=== PATIENT | male | born 1960 | race Two or more races ===

== ENCOUNTER → 2020-06-24 14:47 | Outpatient (BNVA) | payer MEDICARE, MEDICAID, SELFPAY | PROVIDERS: PCP Hospitalist; Referring Provider Hospitalist; Visit Provider Internal Medicine Cardiovascular Disease | DX: I42.8 Other cardiomyopathies (principal); Z79.899 Other long term (current) drug therapy | CPT/HCPCS: 99212 ==

== ENCOUNTER → 2020-07-07 13:47 | Outpatient (REF) | payer MEDICARE, MEDICAID, SELFPAY ==
--- NOTE | 2020-07-07 13:52 | CA_ITS ---
Transthoracic Echocardiogram Patient (Last, First, Middle): Royal Glover, Gender: Male Date of : 1960 Age: 59 Procedure Date: 07/07/2020 Procedure Type: Transthoracic Echocardiogram Location: OP Height: 157.48 cm Weight: 97.04 kg BSA: 1.97 m2 Heart Rate: bpm BP: 128 / 64 mmHg Provider Relations Consultant: Tiff MD: Jaxon Trevino MD Symptoms: I42.8 - Other cardiomyopathies Study Quality: Good ECG Rhythm: Sinus Conclusions: - The left ventricular systolic function is moderately decreased. The visually estimated ejection fraction is between 35-40%. Findings Procedure Information Contrast agent, definity, is being given per protocol without apparent complications. Left Ventricle Normal left ventricular cavity size. The left ventricular systolic function is moderately decreased. The visually estimated ejection fraction is between 35-40%. The calculated ejection fraction is 38% by biplane method. E/E prime ratio is >15, consistent with elevated filling pressures. Evidence suggests grade I (mild) diastolic dysfunction. Prior Study Comparison Changes noted compared to prior study dated: 10/15/2019. Slight increase in LVEF. Measurements 2D Linear Measurements LVIDd: 6.90 3.9-5.3/4.2-5.9 cm LVIDd Index: 3.50 2.4-3.2/2.2-3.1 cm/m2 LVIDs: 6.06 2.0-3.6 cm 2D Systolic Function EF 4C: 50.90 >55% EF 2C: 23.40 >55% EF BiP: 38.10 >55% Mitral Valve MV Pk E: 0.61 MV PK A: 0.81 MV Decel Time: 253.00 E/A: 0.80 E'Lateral: 2.94 E'Medial: 5.00 E/E' Med: 12.20 E/E' Lat: 20.80 Diastolic Function MV Pk E: 0.61 MV Pk A: 0.81 E/A: 0.80 E'Medial: 5.00 E/E' Med: 12.20 E' Laterial: 2.94 E/E' Lat: 20.80 Updated in Other Vendor System with Status of Final Cecil Knapp MD electronically signed on 07/07/2020 4:37:41 PM with status of Final
== END ==
LOC: HO.CARD 13:47
PROVIDERS: Visit Provider Internal Medicine Cardiovascular Disease
DX: I42.8 Other cardiomyopathies (principal)
CPT/HCPCS: 70120; Q9957

== ENCOUNTER → 2020-09-14 13:59 | Outpatient (BNVA) | payer MEDICARE, MEDICAID, SELFPAY | PROVIDERS: PCP Internal Medicine; Visit Provider Internal Medicine Cardiovascular Disease | DX: I42.8 Other cardiomyopathies (principal); E78.5 Hyperlipidemia, unspecified; I10 Essential (primary) hypertension | CPT/HCPCS: 99212 ==

== ENCOUNTER 2020-09-23 09:20 | Outpatient (REF) | payer MEDICARE, MEDICAID, SELFPAY ==
--- NOTE | ~2020-09-23 | US_ITS ---
EXAMINATION: US ABDOMEN LIMITED CLINICAL INFORMATION: Intra-abdominal and pelvic swelling, mass and lump. Question ventral hernia versus lipoma. COMPARISON: None TECHNIQUE: Real-time imaging of the right lower quadrant. FINDINGS: Imaging through the right lower quadrant reveals a loop of peristalsing bowel. No mass, collection or evidence of hernia at this time. US/US abdomen limited IMPRESSION: Unremarkable limited abdominal ultrasound right lower quadrant. No visible mass or hernia.
== END 2020-09-23 09:21 | disposition home or self-care (01) ==
LOC: HO.US 09:20
PROVIDERS: Visit Provider Internal Medicine
DX: R19.00 Intra-abdominal and pelvic swelling, mass and lump, unspecified site (principal)
CPT/HCPCS: 76705

== ENCOUNTER → 2020-12-21 14:53 | Outpatient (BNVA) | payer MEDICARE, MEDICAID, SELFPAY | PROVIDERS: PCP Internal Medicine; Visit Provider Internal Medicine Cardiovascular Disease | DX: I10 Essential (primary) hypertension (principal); I42.8 Other cardiomyopathies; Z79.899 Other long term (current) drug therapy | CPT/HCPCS: 99212 ==

== ENCOUNTER 2021-01-21 13:31 | Outpatient (REF) | payer OTHER, SELFPAY ==
--- NOTE | ~2021-01-21 | US_ITS ---
EXAMINATION: US DIAGNOSTIC ULTRASOUND BREAST, LEFT CLINICAL INFORMATION: Pain and lump retroareolar region left breast. COMPARISON: Mammography of same day.. TECHNIQUE: Ultrasound of the breast is performed with real-time rdz scale imaging and color Doppler. FINDINGS: There is no focal suspicious finding. There is no solid mass, architectural abnormality, duct ectasia, or edema in the soft tissue planes. Normal-appearing breast tissue is evident. Results are discussed with the patient at time of visit. US/US breast LT limited IMPRESSION: Left gynecomastia. ASSESSMENT: BI-RADS 2: Benign RECOMMENDATION: Clinical follow-up .
--- NOTE | ~2021-01-21 | MM_ITS ---
EXAMINATION: MM DIAGNOSTIC DIGITAL BREAST TOMOSYNTHESIS, BILATERAL US TARGETED LEFT BREAST ULTRASOUND CLINICAL INFORMATION: Left breast pain/lump retroareolar location. COMPARISON: Mammography: None. TECHNIQUE: Digital breast tomosynthesis is performed in both the craniocaudal and mediolateral oblique views along with computer-aided detection (CAD). Synthesized 2D images are generated from the tomosynthesis. Targeted left breast ultrasound. FINDINGS: There are scattered areas of fibroglandular density (ACR BI-RADS breast composition Category b). The left breast appears unremarkable without abnormal mass, architectural distortion, or suspicious calcifications. Within the retroareolar region of the left breast, there is a flame-like appearance of tissue with no suspicious abnormal dominant mass or grouping of calcifications. Targeted left breast ultrasound to the retroareolar region demonstrates what appears to be breast tissue without flame-like appearance and with no suspicious region of echotexture. Results are discussed with the patient at time of visit. MM/MM tomosynthesis diagnostic BI IMPRESSION: Left breast gynecomastia. ASSESSMENT: BI-RADS 2: Benign. RECOMMENDATION: Clinical follow-up. This patient's information was entered into a reminder system with a target due date for their next mammogram.
== END 2021-01-21 13:32 | disposition home or self-care (01) ==
LOC: HO.MAMMO 13:31
PROVIDERS: PCP Internal Medicine; Visit Provider Internal Medicine
DX: N64.4 Mastodynia (principal)
CPT/HCPCS: 76642; 77062; 77066

== ENCOUNTER 2021-02-05 11:14 | Outpatient (REF) | payer OTHER, SELFPAY ==
[2021-02-05 14:13] LABS: Hematocrit 44.1 % (42-52); Hemoglobin 14.7 g/dl (14.0-18.0); Mean Corpuscular HGB Conc 33.3 g/dl (31.0-36.0); Mean Corpuscular Hemoglobin 28.8 pg (27.0-33.0); Mean Corpuscular Volume 86.3 fL (80-98); Mean Platelet Volume 12.3 fL (9.4-12.4); Platelet Count 224 X10*3/uL (160-400); Red Blood Count 5.11 X10*6/uL (4.60-5.80); Red Cell Distribution Width 13.1 % (11.0-16.0); White Blood Count 6.8 X10*3/uL (4.8-10.8)
[2021-02-05 14:37] LABS: Alanine Aminotransferase 20 U/L (0-40); Albumin Level 4.2 g/dL (3.5-5.0); Alkaline Phosphatase 70 U/L (39-117); Anion Gap 12 (12-20); Aspartate Amino Transferase 22 U/L (5-37); Bilirubin Total 0.3 mg/dL (0.0-1.0); Blood Urea Nitrogen 14 mg/dL (9-16); Calcium 9.6 mg/dL (8.4-10.2); Carbon Dioxide 24 mmol/L (22-29); Chloride 107 mmol/L (96-108); Estimated Glomerular Filt Rate > 60; Glucose Random 97 mg/dL (60-115); Potassium 4.1 mmol/L (3.3-5.1); Sodium 139 mmol/L (135-145)
== END 2021-02-05 11:15 | disposition home or self-care (01) ==
LOC: HO.LAB 11:14
PROVIDERS: PCP Internal Medicine; Referring Provider Internal Medicine; Visit Provider Nurse Practitioner Family
DX: K21.9 Gastro-esophageal reflux disease without esophagitis (principal); R19.7 Diarrhea, unspecified; Z79.899 Other long term (current) drug therapy; Z87.891 Personal history of nicotine dependence; Z12.11 Encounter for screening for malignant neoplasm of colon
CPT/HCPCS: 36415; 80053; 85027; 99202

== ENCOUNTER 2021-02-23 12:05 | Outpatient (REF) | payer OTHER, SELFPAY | END 2021-02-23 12:06 | disposition home or self-care (01) | LOC: HO.LNP 12:05 | PROVIDERS: Visit Provider Nurse Practitioner Family | DX: K21.9 Gastro-esophageal reflux disease without esophagitis (principal) | CPT/HCPCS: 87338 ==

== ENCOUNTER → 2021-04-23 09:05 | Outpatient (BNVA) | payer OTHER, SELFPAY | PROVIDERS: Visit Provider Nurse Practitioner Family | CPT/HCPCS: Q3014 ==

== ENCOUNTER → 2021-05-17 08:20 | Outpatient (BNVA) | payer OTHER, SELFPAY | PROVIDERS: PCP Internal Medicine; Visit Provider Nurse Practitioner Family | DX: Z13.89 Encounter for screening for other disorder (principal) | CPT/HCPCS: Q3014 ==

== ENCOUNTER 2021-06-09 11:23 | Outpatient (REF) | payer OTHER, SELFPAY ==
[2021-06-09 12:28] LABS: Alanine Aminotransferase 19 U/L (0-40); Albumin Level 4.3 g/dL (3.5-5.0); Alkaline Phosphatase 67 U/L (39-117); Anion Gap 12 (12-20); Aspartate Amino Transferase 21 U/L (5-37); Bilirubin Total 0.6 mg/dL (0.0-1.0); Blood Urea Nitrogen 13 mg/dL (9-16); Calcium 9.6 mg/dL (8.4-10.2); Carbon Dioxide 27 mmol/L (22-29); Chloride 106 mmol/L (96-108); Cholesterol 172 mg/dL; Estimated Glomerular Filt Rate > 60; Glucose Fasting 99 mg/dL (60-99); HDL Cholesterol 38 mg/dL; LDL Cholesterol Calculated 99 mg/dl; Potassium 4.5 mmol/L (3.3-5.1); Sodium 140 mmol/L (135-145); Total Protein 7.2 g/dL (6.5-8.0); Triglycerides 176 mg/dL
[2021-06-09 12:43] LABS: Creatinine Urine 144.96 mg/dL; Microalbum/Creatinine Ratio Ur 47.5 ug/mg cr
[2021-06-13 13:21] LABS: Vitamin D 25-OH, D2 <4 ng/mL; Vitamin D 25-OH, D3 25 ng/mL; Vitamin D 25-OH, Total 25 ng/mL (30-100)
== END 2021-06-09 11:24 | disposition home or self-care (01) ==
LOC: HO.LAB 11:23
PROVIDERS: Nurse Practitioner Family; PCP Internal Medicine; Visit Provider Internal Medicine
DX: E78.5 Hyperlipidemia, unspecified (principal); E55.9 Vitamin D deficiency, unspecified; E11.9 Type 2 diabetes mellitus without complications; K21.9 Gastro-esophageal reflux disease without esophagitis
CPT/HCPCS: 36415; 80053; 80061; 82043; 82306; 87338

== ENCOUNTER → 2021-06-14 14:23 | Outpatient (BNVA) | payer OTHER, SELFPAY | PROVIDERS: PCP Internal Medicine; Referring Provider Internal Medicine; Visit Provider Internal Medicine Cardiovascular Disease | DX: I42.8 Other cardiomyopathies (principal); I10 Essential (primary) hypertension; N64.4 Mastodynia | CPT/HCPCS: 93005; 99212 ==

== ENCOUNTER 2021-08-17 08:36 | Outpatient (REF) | payer OTHER, SELFPAY ==
[2021-08-18 08:32] LABS: H Pylori Breath Test Negative (Negative)
== END 2021-08-17 08:37 | disposition home or self-care (01) ==
LOC: HO.LAB 08:36
PROVIDERS: PCP Internal Medicine; Referring Provider Internal Medicine; Visit Provider Nurse Practitioner Family
DX: K58.1 Irritable bowel syndrome with constipation (principal); K59.04 Chronic idiopathic constipation; K21.9 Gastro-esophageal reflux disease without esophagitis; Z11.0 Encounter for screening for intestinal infectious diseases; Z87.891 Personal history of nicotine dependence
CPT/HCPCS: 36415; 83013; 99212

== ENCOUNTER → 2021-09-14 13:59 | Outpatient (REF) | payer OTHER, SELFPAY ==
--- NOTE | 2021-09-14 14:02 | CA_ITS ---
Transthoracic Echocardiogram Patient (Last, First, Middle): Royal Glover, Gender: Male Date of : 1960 Age: 60 Procedure Date: 09/14/2021 Procedure Type: Transthoracic Echocardiogram Location: OP Height: 157.48 cm Weight: 93.44 kg BSA: 1.94 m2 Heart Rate: bpm BP: 134 / 80 mmHg Automotive Service Manager: Referring MD: Jaxon Trevino MD Symptoms: I42.8 - Other cardiomyopathies Study Quality: Fair ECG Rhythm: Sinus Conclusions: - Severely increased left ventricular cavity size. There is mildly increased left ventricular wall thickness. The left ventricular systolic function is severely decreased. The visually estimated ejection fraction is between 20-25%. - Elevated filling pressures. - Normal right ventricular cavity size and systolic function. - The left atrium is severely dilated. Findings Left Ventricle Severely increased left ventricular cavity size. There is mildly increased left ventricular wall thickness. The left ventricular systolic function is severely decreased. The visually estimated ejection fraction is between 20 25%. Abnormal diastolic function is noted. Spectral Doppler is indicative of a pseudonormal filling pattern. Elevated filling pressures. Right Ventricle Normal right ventricular cavity size and systolic function. Atria The left atrium is severely dilated. Aortic Valve There is a normal trileaflet aortic valve. There is no aortic valve stenosis. There is no aortic valve regurgitation. Mitral Valve There is mild to moderate mitral valve regurgitation. There is no mitral valve stenosis. There is apical tethering of the mitral valve leaflets. Pulmonic Valve Normal pulmonic valve structure and function. There is trace pulmonic valve regurgitation. Tricuspid Valve Normal tricuspid valve structure and function. There is trace tricuspid valve regurgitation. Normal right atrial pressure. There is no evidence of pulmonary hypertension. Great Vessels All visible segments of the aorta are normal in size. The visualized portions of the pulmonary artery and branches are normal. Venous The inferior vena cava is normal in size and collapses greater than 50% with inspiration. Pericardium/Pleural There is no evidence of pericardial effusion. Prior Study Comparison Changes noted compared to prior study dated: 07/07/2020. LV cavity is severely dilated, systolic function is severely reduced. Measurements 2D Linear Measurements IVSd: 1.10 0.6-0.9/0.6-1.0 cm LVIDd: 7.10 3.9-5.3/4.2-5.9 cm LVIDd Index: 3.66 2.4-3.2/2.2-3.1 cm/m2 LVIDs: 5.86 2.0-3.6 cm LVPWd: 1.07 0.7-1.1 cm Ao Root: 3.10 2.1-3.5 cm LA Diam: 5.40 2.7-3.8/3.0-4.0 cm LAIDs Index: 2.78 1.5-2.3 cm/m2 LV Mass: 456.23 67-162/88-224 g LV Mass Index: 235.17 43-95/49-115 g/m2 LVOT Diam: 2.30 3.0+(-)1.3 cm 2D Systolic Function EF 4C: 45.50 >55% EF 2C: 39.90 >55% Mitral Valve MV Pk E: 0.94 MV PK A: 0.59 MV Decel Time: 168.00 E/A: 1.60 E'Lateral: 6.42 E'Medial: 4.90 E/E' Med: 19.20 E/E' Lat: 14.70 PHT: 49.00 MVA PHT: 4.49 Decel Christian: 5.62 Aortic Valve AoV Pk Noel: 1.45 AoV Mn Noel: 0.95 AoV VTI: 0.31 AoV Pk Grad: 8.00 Aov Mn Grad: 4.00 TIAN Cont.VTI: 2.44 LVOT LVOT Pk Noel: 0.88 LVOT Mn Noel: 0.62 LVOT VTI: 0.18 LVOT Pk Grad: 3.00 LVOT Mn Grad: 2.00 LVOT Diam: 2.30 LVOT Area: 4.15 Diastolic Function MV Pk E: 0.94 MV Pk A: 0.59 E/A: 1.60 E'Medial: 4.90 E/E' Med: 19.20 E' Laterial: 6.42 E/E' Lat: 14.70 Right Ventricle TAPSE (mm): 30.00 TVS' Noel: 14.00 Tricuspid Valve TR Pk Noel: 2.67 TR Pk Grad: 29.00 RVSP: 32.00 Great Vessels Aorta Ao Root-2D: 3.10 2.0-3.7 cm Pulmonary Valve PV Pk Noel: 1.06 Peak PV Grad: 4.00 Updated in Other Vendor System with Status of Final Jaxon Trevino MD electronically signed on 09/15/2021 8:08:13 PM with status of Final
== END ==
LOC: HO.CARD 13:59
PROVIDERS: Visit Provider Internal Medicine Cardiovascular Disease
DX: I42.8 Other cardiomyopathies (principal)
CPT/HCPCS: 93306

== ENCOUNTER → 2021-09-22 13:59 | Outpatient (BNVA) | payer OTHER, SELFPAY | PROVIDERS: PCP Internal Medicine; Referring Provider Internal Medicine; Visit Provider Internal Medicine Cardiovascular Disease | DX: I42.8 Other cardiomyopathies (principal); I10 Essential (primary) hypertension; N64.4 Mastodynia | CPT/HCPCS: 99212 ==

== ENCOUNTER → 2021-10-13 13:21 | Outpatient (BNVA) | payer OTHER, SELFPAY | PROVIDERS: PCP Internal Medicine; Referring Provider Internal Medicine; Visit Provider Internal Medicine Cardiovascular Disease | DX: I42.8 Other cardiomyopathies (principal) | CPT/HCPCS: 99212 ==

== ENCOUNTER → 2021-10-19 13:54 | Outpatient (BNVA) | payer OTHER, SELFPAY | PROVIDERS: PCP Internal Medicine; Visit Provider Nurse Practitioner Family | DX: K21.9 Gastro-esophageal reflux disease without esophagitis (principal); K59.04 Chronic idiopathic constipation; K62.5 Hemorrhage of anus and rectum | CPT/HCPCS: 99212 ==

== ENCOUNTER → 2021-12-29 13:55 | Outpatient (REF) | payer OTHER, SELFPAY ==
--- NOTE | 2021-12-29 13:59 | CA_ITS ---
Transthoracic Echocardiogram Patient (Last, First, Middle): Royal Glover, Gender: Male Date of : 1960 Age: 61 Procedure Date: 12/29/2021 Procedure Type: Transthoracic Echocardiogram Location: OP Height: 157.48 cm Weight: 93.9 kg BSA: 1.94 m2 Heart Rate: bpm BP: 110 / 70 mmHg Data Processing Systems Project Planner: BERNADINE Matthew MD: Jaxon Trevino MD Symptoms: I42.8 - Other cardiomyopathies Study Quality: Fair/Contrast Conclusions: - Limited echocardiogram. - The left ventricular systolic function is moderately decreased. The visually estimated ejection fraction is between 30-35%. - Normal right ventricular cavity size and systolic function. Findings Procedure Information Contrast agent, definity, is being given per protocol without apparent complications. Left Ventricle There is mildly increased left ventricular wall thickness. The left ventricular systolic function is moderately decreased. The visually estimated ejection fraction is between 30-35%. Abnormal diastolic function is noted. Spectral Doppler is indicative of an impaired relaxation filling pattern. Elevated filling pressures. Left ventricle is dilated. Right Ventricle Normal right ventricular cavity size and systolic function. Atria The left atrium is moderately dilated. Venous The inferior vena cava is normal in size and collapses greater than 50% with inspiration. Pericardium/Pleural There is no evidence of pericardial effusion. Prior Study Comparison Changes noted compared to prior study dated: 09/14/2021. the left ventricle continues to be dilated but ejection fraction is mildly improved compared to before. Measurements 2D Linear Measurements IVSd: 1.21 0.6-0.9/0.6-1.0 cm LVIDd: 6.90 3.9-5.3/4.2-5.9 cm LVIDd Index: 3.56 2.4-3.2/2.2-3.1 cm/m2 LVIDs: 5.29 2.0-3.6 cm LVPWd: 1.20 0.7-1.1 cm LV Mass: 497.58 67-162/88-224 g LV Mass Index: 256.49 43-95/49-115 g/m2 2D Systolic Function EF 4C: 38.80 >55% EF 2C: 35.50 >55% EF BiP: 34.70 >55% Mitral Valve MV Pk E: 0.65 MV PK A: 0.91 MV Decel Time: 328.00 E/A: 0.70 E'Lateral: 3.81 E'Medial: 4.68 E/E' Med: 13.90 E/E' Lat: 17.10 PHT: 96.00 MVA PHT: 2.29 Decel Cambria: 1.98 Diastolic Function MV Pk E: 0.65 MV Pk A: 0.91 E/A: 0.70 E'Medial: 4.68 E/E' Med: 13.90 E' Laterial: 3.81 E/E' Lat: 17.10 Tricuspid Valve TR Pk Noel: 2.28 TR Pk Grad: 21.00 RA Press: 3.00 RVSP: 24.00 Updated in Other Vendor System with Status of Final Jaxon Trevino MD electronically signed on 12/30/2021 3:07:48 PM with status of Final
== END ==
LOC: HO.CARD 13:55
PROVIDERS: Visit Provider Internal Medicine Cardiovascular Disease
DX: I42.8 Other cardiomyopathies (principal)
CPT/HCPCS: 93308; Q9957

== ENCOUNTER → 2022-01-19 13:20 | Outpatient (BNVA) | payer OTHER, SELFPAY | PROVIDERS: PCP Internal Medicine; Referring Provider Internal Medicine; Visit Provider Internal Medicine Cardiovascular Disease | DX: I42.8 Other cardiomyopathies (principal); I50.22 Chronic systolic (congestive) heart failure | CPT/HCPCS: 93005; 99212 ==

== ENCOUNTER → 2022-04-20 14:10 | Outpatient (BNVA) | payer OTHER, SELFPAY | PROVIDERS: PCP Internal Medicine; Visit Provider Nurse Practitioner Family | DX: K21.9 Gastro-esophageal reflux disease without esophagitis (principal); K64.9 Unspecified hemorrhoids; Z90.49 Acquired absence of other specified parts of digestive tract | CPT/HCPCS: 99212 ==

== ENCOUNTER → 2022-06-14 10:49 | Outpatient (BNVA) | payer OTHER, SELFPAY | PROVIDERS: PCP Internal Medicine; Referring Provider Internal Medicine; Visit Provider Nurse Practitioner Family | DX: K21.9 Gastro-esophageal reflux disease without esophagitis (principal); K59.01 Slow transit constipation | CPT/HCPCS: 99212 ==

== ENCOUNTER → 2022-07-18 15:31 | Outpatient (BNVA) | payer OTHER, SELFPAY | PROVIDERS: PCP Internal Medicine; Referring Provider Internal Medicine; Visit Provider Internal Medicine Cardiovascular Disease | DX: I50.22 Chronic systolic (congestive) heart failure (principal); Z79.899 Other long term (current) drug therapy | CPT/HCPCS: 99212 ==

== ENCOUNTER → 2022-09-26 08:20 | Outpatient (REF) | payer OTHER, SELFPAY ==
[2022-09-26 08:31] LABS: MANUAL DIFF FLAG NO
[2022-09-26 09:29] LABS: Basophils Absolute Auto 0.1 X10*3/uL (0.0-0.2); Basophils Percent Auto 1.3 % (0-2); Eosinophils Absolute Auto 0.1 X10*3/uL (0.0-0.4); Eosinophils Percent Auto 2.4 % (0-4); Hematocrit 44.9 % (42.0-52.0); Imm Gran Abs Auto 0.01 X10*3/uL (0.00-0.03); Imm Gran Pct Auto 0.2 % (0.0-0.4); Lymphocytes Absolute Auto 1.9 X10*3/uL (1.2-4.9); Lymphocytes Percent Auto 35.1 % (20-40); Mean Corpuscular HGB Conc 33.4 g/dl (31.0-36.0); Mean Corpuscular Hemoglobin 28.4 pg (27.0-33.0); Mean Corpuscular Volume 84.9 fL (80.0-98.0); Mean Platelet Volume 12.5 fL (9.4-12.4); Monocytes Absolute Auto 0.5 X10*3/uL (0.1-1.2); Monocytes Percent Auto 9.4 % (2-11); Neutrophils Absolute Auto 2.8 x10*3/uL (2.0-8.3); Neutrophils Percent Auto 51.6 % (45-73); Platelet Count 199 X10*3/uL (160-400); Red Blood Count 5.29 X10*6/uL (4.60-5.80); Red Cell Distribution Width 13.2 % (11.0-16.0); White Blood Count 5.4 X10*3/uL (4.8-10.8)
[2022-09-26 10:05] LABS: Alanine Aminotransferase 20 U/L (0-40); Albumin Level 4.3 g/dL (3.5-5.0); Alkaline Phosphatase 71 U/L (39-117); Anion Gap 13 (12-20); Aspartate Amino Transferase 19 U/L (5-37); Bilirubin Total 0.9 mg/dL (0.0-1.0); Blood Urea Nitrogen 13 mg/dL (9-16); Calcium 9.7 mg/dL (8.4-10.2); Carbon Dioxide 26 mmol/L (22-29); Chloride 107 mmol/L (96-108); Cholesterol 124 mg/dL; Estimated Glomerular Filt Rate > 60; Glucose Fasting 114 mg/dL (60-99); HDL Cholesterol 40 mg/dL; LDL Cholesterol Calculated 56 mg/dl; Potassium 4.1 mmol/L (3.3-5.1); Sodium 142 mmol/L (135-145); Total Protein 6.9 g/dL (6.5-8.0); Triglycerides 140 mg/dL
--- NOTE | 2022-09-26 12:48 | CA_ITS ---
Transthoracic Echocardiogram Patient (Last, First, Middle): Royal Glover, Gender: Male Date of : 1960 Age: 61 Procedure Date: 09/26/2022 Procedure Type: Transthoracic Echocardiogram Location: OP Height: 157.48 cm Weight: 88.91 kg BSA: 1.90 m2 Heart Rate: bpm BP: 128 / 68 mmHg Regional Medical Director: Referring MD: Jaxon Trevino MD Sales Representative Health Insurance: Jaxon Trevino MD Symptoms: I50.22 - Chronic systolic (congestive) heart failure Study Quality: Fair ECG Rhythm: Sinus Conclusions: - Moderately increased left ventricular cavity size. There is mildly increased left ventricular wall thickness. The left ventricular systolic function is severely decreased. The visually estimated ejection fraction is between 20-25%. - Elevated filling pressures. - Mildly increased right ventricular cavity size. There is normal right ventricular systolic function. Findings Procedure Information Contrast agent, definity, is being given per protocol without apparent complications. Left Ventricle Moderately increased left ventricular cavity size. There is mildly increased left ventricular wall thickness. The left ventricular systolic function is severely decreased. The visually estimated ejection fraction is between 20 25%. There is severe global hypokinesis. Abnormal diastolic function is noted. Spectral Doppler is indicative of an impaired relaxation filling pattern. Elevated filling pressures. Right Ventricle Mildly increased right ventricular cavity size. There is normal right ventricular systolic function. Atria The left atrium is severely dilated. Aortic Valve Normal aortic valve structure and function. There is no aortic valve stenosis. There is no aortic valve regurgitation. Mitral Valve The mitral valve appears normal. There is mild mitral valve regurgitation. There is no mitral valve stenosis. Pulmonic Valve The pulmonic valve is likely normal. Tricuspid Valve Normal tricuspid valve structure and function. There is trace tricuspid valve regurgitation. Normal right atrial pressure. There is no evidence of pulmonary hypertension. Great Vessels All visible segments of the aorta are normal in size. The visualized portions of the pulmonary artery and branches are normal. Venous The inferior vena cava is normal in size and collapses greater than 50% with inspiration. Pericardium/Pleural There is no evidence of pericardial effusion. Prior Study Comparison Changes noted compared to prior study. EF is severely reduced. Measurements 2D Linear Measurements IVSd: 1.26 0.6-0.9/0.6-1.0 cm LVIDd: 6.12 3.9-5.3/4.2-5.9 cm LVIDd Index: 3.22 2.4-3.2/2.2-3.1 cm/m2 LVIDs: 5.34 2.0-3.6 cm LVPWd: 1.23 0.7-1.1 cm Ao Root: 2.80 2.1-3.5 cm LA Diam: 4.80 2.7-3.8/3.0-4.0 cm LAIDs Index: 2.53 1.5-2.3 cm/m2 LV Mass: 425.42 67-162/88-224 g LV Mass Index: 223.90 43-95/49-115 g/m2 LVOT Diam: 2.20 3.0+(-)1.3 cm 2D Systolic Function EF 4C: 25.80 >55% EF 2C: 30.80 >55% EF BiP: 27.00 >55% Mitral Valve MV Pk E: 0.59 MV PK A: 0.96 MV Decel Time: 284.00 E/A: 0.60 E'Lateral: 3.26 E'Medial: 3.37 E/E' Med: 17.60 E/E' Lat: 18.20 PHT: 83.00 MVA PHT: 2.65 Decel Irion: 2.09 Aortic Valve AoV Pk Noel: 1.60 AoV Mn Noel: 1.06 AoV VTI: 0.37 AoV Pk Grad: 10.00 Aov Mn Grad: 5.00 TIAN Cont.VTI: 2.32 LVOT LVOT Pk Noel: 1.02 LVOT Mn Noel: 0.68 LVOT VTI: 0.22 LVOT Pk Grad: 4.00 LVOT Mn Grad: 2.00 LVOT Diam: 2.20 LVOT Area: 3.80 Diastolic Function MV Pk E: 0.59 MV Pk A: 0.96 E/A: 0.60 E'Medial: 3.37 E/E' Med: 17.60 E' Laterial: 3.26 E/E' Lat: 18.20 Right Ventricle TAPSE (mm): 29.00 TVS' Noel: 13.00 Tricuspid Valve TR Pk Noel: 2.42 TR Pk Grad: 23.00 RA Press: 3.00 RVSP: 26.00 Great Vessels Aorta Ao Root-2D: 2.80 2.0-3.7 cm Ao Asc: 3.20 2.1-3.4 cm Pulmonary Valve PV Pk Noel: 1.20 Peak PV Grad: 6.00 Updated in Other Vendor System with Status of Final Jaxon Trevino MD electronically signed on 09/29/2022 5:58:39 PM with status of Final
[2022-09-28 11:39] LABS: NT-proBNP 289 pg/mL
== END ==
LOC: HO.CARD 08:20
PROVIDERS: Absent Provider Internal Medicine; PCP Internal Medicine; Visit Provider Internal Medicine Cardiovascular Disease
DX: I50.22 Chronic systolic (congestive) heart failure (principal); K59.01 Slow transit constipation; E78.5 Hyperlipidemia, unspecified
CPT/HCPCS: 36415; 80053; 80061; 83880; 85025; 93306; Q9957

== ENCOUNTER → 2022-11-08 11:00 | Outpatient (BNVA) | payer OTHER, SELFPAY | PROVIDERS: PCP Internal Medicine; Visit Provider Nurse Practitioner Family | DX: K21.9 Gastro-esophageal reflux disease without esophagitis (principal); K59.01 Slow transit constipation; K58.2 Mixed irritable bowel syndrome | CPT/HCPCS: 99212 ==

== ENCOUNTER → 2022-11-23 14:48 | Outpatient (BNVA) | payer OTHER, SELFPAY | PROVIDERS: PCP Internal Medicine; Visit Provider Internal Medicine Cardiovascular Disease | DX: I50.22 Chronic systolic (congestive) heart failure (principal); I42.6 Alcoholic cardiomyopathy; F10.20 Alcohol dependence, uncomplicated | CPT/HCPCS: 93005; 99212 ==

== ENCOUNTER 2023-04-20 08:53 | Outpatient (AMB) | payer OTHER, SELFPAY ==
--- NOTE | 2023-04-20 09:02 | MHC.OFFVIS ---
Intake Vital Signs 04/20/23 09:03 Height 5 ft 2 in Weight 201 lb 0.985 oz BMI 36.8 BP 100/62 Blood Pressure Location Lt brachial Position Sitting Pulse 50 Pulse Source Pulse Oximeter Intake Visit Reasons: 3 mth f/up/ PT missed last appt Intake Note: 3 month f/up Solo Truck Driver Required: Yes Solo Truck Driver Name: ayla gamboa [id number] Allergies No Known Allergies [No Known Allergies*] Allergy (Verified 04/20/23 09:08) Medication List - Last Reconciled 04/20/23 by REJI Adamson acetaminophen (Tylenol) 650 mg (2 x 325 mg) PO Q6H PRN aspirin 81 mg PO DAILY atorvastatin 80 mg PO DAILY blood sugar diagnostic (FreeStyle Lite Strips) Use 1 test strip once a day blood-glucose meter (FreeStyle Lite Meter kit) As directed cyclobenzaprine 10 mg PO BEDTIME empagliflozin (Jardiance) 10 mg PO DAILY eplerenone 25 mg PO DAILY fluticasone propionate 50 mcg/actuation (Flonase Allergy Relief) 1 spray intranasal DAILY 10 days furosemide 40 mg PO DAILY hydrocortisone 2.5% (Proctosol HC) 1 appl MT BID-QID PRN ibuprofen 800 mg PO Q8H PRN 30 days lancets (FreeStyle Lancets) Use 1 lancet once a day loratadine 10 mg PO DAILY 10 days methylcellulose (laxative) (Citrucel) 500 mg PO DAILY metoprolol succinate ER 50 mg PO DAILY olanzapine 10 mg PO BEDTIME omeprazole 40 mg PO DAILY sacubitril-valsartan 49-51 mg (Entresto) 1 tab PO BID sennosides (Natural Senna Laxative) 17.2 mg (2 x 8.6 mg) PO BEDTIME sertraline 50 mg PO DAILY trazodone 200 mg PO BEDTIME PRN HPI 3 mth f/up/ PT missed last appt HPI Details Royal is a 62-year-old male with past medical history of hypertension, hyperlipidemia, diabetes, obesity, nonischemic cardiomyopathy, alcohol use who presents for follow-up. Today he reports he has been doing well with no concerning symptoms. He denies having shortness of breath with exertion. No chest discomfort, palpitations, dizziness, presyncope, syncope, PND, orthopnea or edema. He tells me he walks frequently. He reports compliance with his medications though he believes he is taking Entresto only once a day. 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 pylori) GERD (gastroesophageal reflux disease) Breast pain Dyslipidemia Essential hypertension Obese Abdominal mass Insomnia Surgical History H/O abdominal surgery History of colonoscopy Family History Father No problems noted. Mother No problems noted. Social History Housing: Apartment Alcohol intake: current Alcohol intake frequency: a few times a month Alcohol type: beer Patient Tobacco Use Status: Former Tobacco user Tobacco use type: Cigarette e-Cigarette/Vaping Use: Never Used Second Hand Smoke Exposure: No service: No Current occupational status: retired Cognitive needs: No Hearing needs: No Vision needs: No Review of Systems Const All systems reviewed & are unremarkable except as noted in HPI and below ENT Denies dizziness Card Denies chest pain, Denies chest pain at rest, Denies chest pain with activity, Denies rapid heart rate, Denies pedal edema, Denies edema, Denies leg edema, Denies lightheadedness, Denies palpitations, Denies dyspnea, Denies dyspnea on exertion and Denies orthopnea Resp Denies cough, Denies dyspnea and Denies dyspnea on exertion GI Denies hematochezia and Denies change in stool character Musc Denies abnormal gait, Reports limited range of motion, Reports muscle cramps, Denies muscle weakness, Denies numbness, Denies radiating pain into limb, Denies stiffness and Denies tingling Neuro Denies abnormal gait, Denies dizziness, Denies numbness and Denies tingling Endo Denies palpitations Physical Exam Vital Signs: Last Vital Signs Pulse 50 04/20/23 09:03 BP 100/62 04/20/23 09:03 BMI result Body Mass Index 36.8 Const General: cooperative, healthy appearing, comfortable and no acute distress Orientation/consciousness: patient oriented x3 Neck Neck: Yes normal visual inspection and Yes no JVD Resp Effort & Inspection: normal respiratory effort Auscultation: clear to auscultation bilaterally, no crackles, no rales, no rhonchi and no wheezes Cardio Jugular venous distension: no JVD Rate: regular rate Rhythm: regular rhythm Heart sounds: S1 normal heart sound present, S2 normal heart sound present, no murmurs and no rubs Neuro General: patient oriented x3 Extrem General: Yes normal to inspection Psych Appearance: grossly normal Mental Status: mental status grossly normal Speech and movement: Normal speech and movement present Assessment & Plan Assessment & Plan (1) NICM (nonischemic cardiomyopathy): Comment: Clinically compensated Code(s): I42.8 - Other cardiomyopathies Plan: History of nonischemic cardiomyopathy, 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 Last echocardiogram done 09/26/2022 showed EF 20-25%. Echo prior to that 09/14/2021 also showed EF 20-25%. He has been on guideline directed medical therapy. On last visit he reported that he had stopped alcohol use. Today he reports he is feeling very well with no concerning symptoms. NYHA class 1. He believes he has been taking Entresto only once daily, instructed to take b.i.d. refills sent to pharmacy. He admits to drinking beers on occasion. He denies daily drinking. His no clinical signs of decompensated heart failure on examination. Will continue on Entresto and metoprolol for neurohormonal modulation. Unable to further titrate at this time. Continue daily Lasix. He is due for updated lab work, orders are in the system, instructed to obtain. Will check limited echo prior to his next visit. If EF remains less than 35% ICD can be considered. Signs and symptoms of heart failure reviewed. Cardiology follow-up 3 months, sooner if needed. (2) Chronic systolic heart failure: Code(s): I50.22 - Chronic systolic (congestive) heart failure Plan: Stable. (3) Essential hypertension: Comment: Well controlled Code(s): I10 - Essential (primary) hypertension Plan: Well controlled at present. Blood pressure 100/62 (4) Alcohol use: Code(s): Z78.9 - Other specified health status Plan: Continues to admit to periodic alcohol use Orders: Orders CA echo limited 06/28/23 I42.8 - Other cardiomyopathies Medications: Refilled sacubitril-valsartan 49-51 mg (Entresto) 1 tab PO BID 180 tabs 3RF I42.8 - Other cardiomyopathies furosemide 40 mg PO DAILY 90 tabs 3RF metoprolol succinate ER 50 mg PO DAILY 90 tabs 3RF Quality Reporting (2019) Adult ([facility] 138/10/05/[birth year]) Smoking risk assessment performed?: Yes Patient Tobacco Use Status: Former Tobacco user Coding Level of Care Code Est Pt Level 3 (74410) Diagnoses NICM (nonischemic cardiomyopathy) I42.8 Chronic systolic heart failure I50.22 Essential hypertension I10 Alcohol use Z78.9 Time Spent (min) 22 Comment chart review, document, interview, assess
[2023-04-20 09:03] VITALS: BP 100/62; PULSE 50; BMI 36.8
== END 2023-04-20 09:30 | disposition home or self-care (01) ==
PROVIDERS: PCP Internal Medicine; Referring Provider Internal Medicine; Visit Provider Nurse Practitioner Family
DX: I42.8 Other cardiomyopathies (principal); I50.22 Chronic systolic (congestive) heart failure; I10 Essential (primary) hypertension; Z78.9 Other specified health status
CPT/HCPCS: 99213

== ENCOUNTER → 2023-04-20 08:53 | Outpatient (BNVA) | payer OTHER, SELFPAY | PROVIDERS: PCP Internal Medicine; Referring Provider Internal Medicine; Visit Provider Nurse Practitioner Family | DX: I42.8 Other cardiomyopathies (principal); I11.0 Hypertensive heart disease with heart failure; I50.22 Chronic systolic (congestive) heart failure; Z78.9 Other specified health status | CPT/HCPCS: 99212 ==

== ENCOUNTER 2023-05-09 07:42 | Outpatient (AMB) | payer OTHER, SELFPAY ==
[2023-05-09 07:48] VITALS: BP 110/70; BMI 36.9
--- NOTE | 2023-05-09 07:48 | MHC.PC.OV ---
Vital Signs 05/09/23 07:48 Height 5 ft 2 in Weight 202 lb BMI 36.9 BP 110/70 Blood Pressure Location Lt brachial Position Sitting Intake Visit Reasons: bp,back pain Intake Note: Patient here for a follow up bp, back pain, c/o right leg pain with numbness, dizziness, headaches Hansard Reporter Required: No Accompanied by: Self / Same As Patient Allergies No Known Allergies [No Known Allergies*] Allergy (Verified 05/09/23 08:04) Medication List - Last Reconciled 05/09/23 by Gina Le MD acetaminophen (Tylenol) 650 mg (2 x 325 mg) PO Q6H PRN aspirin 81 mg PO DAILY atorvastatin 80 mg PO DAILY blood sugar diagnostic (FreeStyle Lite Strips) Use 1 test strip once a day blood-glucose meter (FreeStyle Lite Meter kit) As directed cyclobenzaprine 10 mg PO BEDTIME empagliflozin (Jardiance) 10 mg PO DAILY eplerenone 25 mg PO DAILY fluticasone propionate 50 mcg/actuation (Flonase Allergy Relief) 1 spray intranasal DAILY 10 days furosemide 40 mg PO DAILY hydrocortisone 2.5% (Proctosol HC) 1 appl [place] BID-QID PRN ibuprofen 800 mg PO Q8H PRN 30 days lancets (FreeStyle Lancets) Use 1 lancet once a day loratadine 10 mg PO DAILY 10 days methylcellulose (laxative) (Citrucel) 500 mg PO DAILY metoprolol succinate ER 50 mg PO DAILY olanzapine 10 mg PO BEDTIME omeprazole 40 mg PO DAILY sacubitril-valsartan 49-51 mg (Entresto) 1 tab PO BID sennosides (Natural Senna Laxative) 17.2 mg (2 x 8.6 mg) PO BEDTIME sertraline 50 mg PO DAILY trazodone 200 mg PO BEDTIME PRN Tobacco use date assessed: 09/19/22 Fall risk assessment: No Falls in past year Last assessed Fall Risk: 05/09/23 Dental Screening Dental Screen Date: 05/09/23 Did you have a dental visit in the last 12 months?: Yes Did you have a dental problem in the last 6 months where you did not have access to dental care?: No Was dental information given to patient?: Patient has dentist HPI HPI Comments History of Present Illness Details This is a 62-year-old male with diabetes mellitus type 2, chronic systolic congestive heart failure, hyperlipidemia and mild recurrent major depression that comes today for follow-up on his conditions. A1c within goal. Last ejection fraction from echocardiogram done September 2022 shows to be 20-25% and this will be repeated soon. Denies any chest pain, shortness of breath or leg swelling. Has not gain 5 lb in a week. Compliant with medications. LDL within goal. Depression stable with SSRIs and this is follow by Psychiatry. Has occasional dizziness when picking something from the floor most likely vasovgoal reaction. 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 pylori) GERD (gastroesophageal reflux disease) Breast pain Dyslipidemia Essential hypertension Obese Abdominal mass Insomnia Surgical History H/O abdominal surgery History of colonoscopy Family History (Updated 05/09/23 @ 08:09 by Gina Le MD) Father No problems noted. Mother Kidney failure Social History Housing: Apartment Alcohol intake: current Alcohol intake frequency: a few times a month Alcohol type: beer Patient Tobacco Use Status: Former Tobacco user Tobacco use type: Cigarette e-Cigarette/Vaping Use: Never Used Second Hand Smoke Exposure: No service: No Current occupational status: retired Cognitive needs: No Hearing needs: No Vision needs: No Questionnaire Thrive Questionnaire Date Thrive assessed: 09/19/22 MIGUELINA-7 AMB Questionnaire MIGUELINA-7 Date MIGUELINA - 7 assessed: 09/19/22 Source: Developed by Drs. Elias Schillnig, Barbie Teague, Flavio Calvin and colleagues, with an educational elroy from [employer]. Review of Systems Const All systems reviewed & are unremarkable except as noted in HPI and below Eyes Reports no additional complaints, Denies change in vision and Denies other visual disturbances Card Denies chest pain at rest, Denies chest pain with activity, Denies edema, Denies irregular heart rhythm, Denies claudication, Denies dyspnea, Denies dyspnea on exertion, Denies orthopnea, Denies paroxysmal nocturnal dyspnea and Denies slow heart rate Resp Denies cough, Denies dyspnea and Denies dyspnea on exertion GI Denies abdominal pain, Denies change in bowel habits, Denies excessive flatus, Denies nausea and Denies vomiting Denies urinary hesitancy, Denies urinary incontinence and Denies urinary urgency Musc Denies abnormal gait, Denies atrophy, Denies deformity and Denies limited range of motion Skin/Breast Denies bleeding lesions, Denies changing lesions and Denies rash Neuro Denies abnormal gait, Denies behavioral changes and Denies lack of coordination Psych Denies behavioral changes Physical exam (Primary Care) Vital Signs: Last Vital Signs BP 110/70 05/09/23 07:48 BMI result Body Mass Index 36.9 Tobacco/Smoking Status: Tobacco use Status Tobacco use date assessed 09/19/22 05/09/23 07:51 Patient Tobacco Use Status Former Tobacco user 05/09/23 07:51 Tobacco use type Cigarette 05/09/23 07:51 e-Cigarette/Vaping Use Never Used 05/09/23 07:51 Thrive Assessment: Date of Thrive Assessment Date Thrive assessed 09/19/22 05/09/23 07:51 Eyes General: appearance normal, both eyes and all related structures Eyelids: Yes eyelids normal Conjunctivae: conjunctivae normal Neck Neck: Yes normal visual inspection and Yes supple Resp Effort & Inspection: normal respiratory effort Auscultation: clear to auscultation bilaterally Cardio Jugular venous distension: no JVD Rate: regular rate Rhythm: regular rhythm Heart sounds: S1 normal heart sound present and S2 normal heart sound present Extrem General: Yes full ROM Results AMB Hemoglobin A1c AMB Hemoglobin A1c 5.5 % Last Edit by FE Coello on 05/09/23 07:57 Results Reviewed Results Reviewed: Laboratory Last Values Hgb A1c (Clinic) 5.5 % (4.0-6.0) 05/09/23 07:52 Assessment and Plan Assessment & Plan (1) Diabetes mellitus: Code(s): E11.9 - Type 2 diabetes mellitus without complications Plan: Continue Jardiance. A1c goal is equal or less than 7%. (2) Hyperlipidemia LDL goal <70: Code(s): E78.5 - Hyperlipidemia, unspecified Plan: Continue statins. LDL goal is less than 70. (3) Chronic systolic heart failure: Code(s): I50.22 - Chronic systolic (congestive) heart failure Plan: Continue Entresto and diuretics. Repeat echocardiogram. Follow-up with Cardiology. The goal is to not gain 5 lb in a week. (4) Mild recurrent major depression: Code(s): F33.0 - Major depressive disorder, recurrent, mild Plan: Continue SSRIs Orders: Orders Lipid Panel Today E78.5 - Hyperlipidemia, unspecified Microalbumin, Random (w Creat) Today E11.9 - Type 2 diabetes mellitus without complications Vitamin D 25-OH Total Today E55.9 - Vitamin D deficiency, unspecified AMB Hemoglobin A1c Today E11.9 - Type 2 diabetes mellitus without complications Comprehensive [place]. Panel Fast Today E11.9 - Type 2 diabetes mellitus without complications NT-proBNP Today I42.8 - Other cardiomyopathies Medications: New blood sugar diagnostic (OneTouch Ultra Test strips) Use 1 test strip once a day 100 ea 2RF E11.9 - Type 2 diabetes mellitus without complications lancets (OneTouch UltraSoft 2 Lancet) Use 1 lancet once a day 100 ea 2RF E11.9 - Type 2 diabetes mellitus without complications blood-glucose meter (OneTouch Ultra2 Meter) As directed 1 ea 0RF E11.9 - Type 2 diabetes mellitus without complications Discontinued blood sugar diagnostic (FreeStyle Lite Strips) Discontinued Reason: Patient Completed Course Use 1 test strip once a day 100 ea 3RF E11.9 - Type 2 diabetes mellitus without complications blood-glucose meter (FreeStyle Lite Meter kit) Discontinued Reason: Insurance Denied As directed 1 ea 0RF E11.9 - Type 2 diabetes mellitus without complications Coding Level of Care Code Est Pt Level 4 (42548) Diagnoses Diabetes mellitus E11.9 Hyperlipidemia LDL goal <70 E78.5 Chronic systolic heart failure I50.22 Mild recurrent major depression F33.0 Time Spent (min) 23
== END 2023-05-09 08:14 | disposition home or self-care (01) ==
PROVIDERS: PCP Internal Medicine; Visit Provider Internal Medicine
DX: E11.9 Type 2 diabetes mellitus without complications (principal); E78.5 Hyperlipidemia, unspecified; I50.22 Chronic systolic (congestive) heart failure; F33.0 Major depressive disorder, recurrent, mild
CPT/HCPCS: 83036; 99214

== ENCOUNTER 2023-05-10 07:25 | Outpatient (REF) | payer OTHER, SELFPAY ==
[2023-05-10 08:20] LABS: Alanine Aminotransferase 18 U/L (0-40); Albumin Level 4.3 g/dL (3.5-5.0); Alkaline Phosphatase 68 U/L (39-117); Anion Gap 11 (12-20); Aspartate Amino Transferase 16 U/L (5-37); Bilirubin Total 0.5 mg/dL (0.0-1.0); Blood Urea Nitrogen 18 mg/dL (9-16); Calcium 9.5 mg/dL (8.4-10.2); Carbon Dioxide 25 mmol/L (22-29); Chloride 108 mmol/L (96-108); Cholesterol 148 mg/dL (<200); Estimated Glomerular Filt Rate > 60; Glucose Fasting 108 mg/dL (60-99); HDL Cholesterol 42 mg/dL (>40); LDL Cholesterol Calculated 80 mg/dL (<100); Potassium 4.1 mmol/L (3.3-5.1); Sodium 140 mmol/L (135-145); Total Protein 7.3 g/dL (6.5-8.0); Triglycerides 131 mg/dL (<150)
[2023-05-10 08:33] LABS: Vitamin D 25-OH Total 42.9 ng/mL (>30)
[2023-05-10 10:51] LABS: Creatinine Urine 118.79 mg/dL; Microalbum/Creatinine Ratio Ur 115.3 ug/mg cr (<30)
[2023-05-15 21:58] LABS: NT-proBNP 292 pg/mL (<125)
== END 2023-05-10 07:26 | disposition home or self-care (01) ==
LOC: HO.LAB 07:25
PROVIDERS: Absent Provider Nurse Practitioner Family; PCP Internal Medicine; Visit Provider Internal Medicine
DX: E11.9 Type 2 diabetes mellitus without complications (principal); E78.5 Hyperlipidemia, unspecified; I50.22 Chronic systolic (congestive) heart failure; E55.9 Vitamin D deficiency, unspecified; I42.8 Other cardiomyopathies
CPT/HCPCS: 36415; 80053; 80061; 82043; 82306; 82570; 83880

== ENCOUNTER → 2023-06-29 08:35 | Outpatient (REF) | payer OTHER, SELFPAY ==
--- NOTE | 2023-06-29 08:39 | CA_ITS ---
Transthoracic Echocardiogram Patient (Last, First, Middle): Royal Glover, Gender: Male Date of : 1960 Age: 62 Procedure Date: 06/29/2023 Procedure Type: Transthoracic Echocardiogram Location: OP Height: 157.48 cm Weight: 90.72 kg BSA: 1.91 m2 Heart Rate: 56 bpm BP: 120 / 80 mmHg Manager Provider Relations: KIMBERLY/ARAVIND Referring MD: Keira Sanderson REHABILITATION NURSEJustinoC Symptoms: I42.8 - Other cardiomyopathies Study Quality: Adequate w contrast ECG Rhythm: Bradycardia Conclusions: - The left ventricular systolic function is severely decreased. The visually estimated ejection fraction is between 20-25%. - There is severe global hypokinesis. - The basal inferolateral segment is akinetic. Findings Procedure Information Contrast agent, definity, is being given per protocol without apparent complications. The quality of the study was technically difficult. The study quality is limited by patients body habitus. Left Ventricle Severely increased left ventricular cavity size. The left ventricular systolic function is severely decreased. The visually estimated ejection fraction is between 20-25%. There is severe global hypokinesis. There is mild septal asymmetric hypertrophy. LV peak GLS -12.1%. Wall Motion Rest Echo Findings The basal inferolateral segment is akinetic. Prior Study Comparison No significant change compared to prior study dated: 09/26/2022. Wall motion abnormality possibly present on review of prior images, but not well visualized. Much more obvious in current study. Measurements 2D Linear Measurements IVSd: 1.28 0.6-0.9/0.6-1.0 cm LVIDd: 7.46 3.9-5.3/4.2-5.9 cm LVIDd Index: 3.91 2.4-3.2/2.2-3.1 cm/m2 LVIDs: 6.70 2.0-3.6 cm LVOT Diam: 2.20 3.0+(-)1.3 cm 2D Systolic Function EF 4C: 34.90 >55% EF 2C: 30.20 >55% EF BiP: 31.60 >55% LVOT LVOT Pk Noel: 0.60 LVOT Mn Noel: 0.41 LVOT VTI: 0.13 LVOT Pk Grad: 1.00 LVOT Mn Grad: 1.00 LVOT Diam: 2.20 LVOT Area: 3.80 Tricuspid Valve RA Press: 3.00 Updated in Other Vendor System with Status of Final Cecil Knapp MD electronically signed on 07/01/2023 11:18:50 AM with status of Final
== END ==
LOC: HO.CARD 08:35
PROVIDERS: PCP Internal Medicine; Visit Provider Nurse Practitioner Family
DX: I42.8 Other cardiomyopathies (principal)
CPT/HCPCS: 93308; 93356; Q9957

== ENCOUNTER → 2023-06-29 08:39 | Outpatient (BNV) | payer OTHER, SELFPAY | PROVIDERS: PCP Internal Medicine; Visit Provider Internal Medicine | DX: I42.8 Other cardiomyopathies (principal) | CPT/HCPCS: 93308 ==

== ENCOUNTER 2023-07-18 11:05 | Outpatient (AMB) | payer OTHER, SELFPAY ==
[2023-07-18 11:09] VITALS: BP 114/72; PULSE 58; BMI 37.7
--- NOTE | 2023-07-18 11:09 | MHC.OFFVIS ---
Intake Vital Signs 07/18/23 11:09 Height 5 ft 2 in Weight 205 lb 14.588 oz BMI 37.7 BP 114/72 Blood Pressure Location Rt brachial Position Sitting Pulse 58 Intake Visit Reasons: 3M Echo ICD discussion Maxillofacial Prosthetics Dentist Required: Yes Maxillofacial Prosthetics Dentist Language: Tumbler Dyeing Machine Operator Name: ayla temple [id number] Allergies No Known Allergies [No Known Allergies*] Allergy (Verified 07/18/23 11:12) Medication List - Last Reconciled 07/18/23 by REJI Adamson acetaminophen (Tylenol) 650 mg (2 x 325 mg) PO Q6H PRN aspirin 81 mg PO DAILY atorvastatin 80 mg PO DAILY blood sugar diagnostic ([employer] Ultra Test strips) Use 1 test strip once a day blood-glucose meter ([employer] Ultra2 Meter) As directed cyclobenzaprine 10 mg PO BEDTIME empagliflozin (Jardiance) 10 mg PO DAILY eplerenone 25 mg PO DAILY fluticasone propionate 50 mcg/actuation (Flonase Allergy Relief) 1 spray intranasal DAILY 10 days furosemide 40 mg PO DAILY hydrocortisone 2.5% (Proctosol HC) 1 appl [place] BID-QID PRN ibuprofen 800 mg PO Q8H PRN 30 days lancets (FreeStyle Lancets) Use 1 lancet once a day lancets (OneTouch UltraSoft 2 Lancet) Use 1 lancet once a day loratadine 10 mg PO DAILY 10 days methylcellulose (laxative) (Citrucel) 500 mg PO DAILY metoprolol succinate ER 50 mg PO DAILY olanzapine 10 mg PO BEDTIME omeprazole 40 mg PO DAILY sacubitril-valsartan 49-51 mg (Entresto) 1 tab PO BID sennosides (Natural Senna Laxative) 17.2 mg (2 x 8.6 mg) PO BEDTIME sertraline 50 mg PO DAILY HPI 3M Echo ICD discussion HPI Details Royal is a 62-year-old male with past medical history of hypertension, hyperlipidemia, diabetes, obesity, nonischemic cardiomyopathy, alcohol use who presents for follow-up after recent echo. Today he reports he is feeling well with no concerning symptoms. He has no chest discomfort at rest or with exertion. No shortness of breath reported. No PND, orthopnea or edema. No lightheadedness, presyncope, syncope, falls. He walks frequently without symptoms. He reports compliance with his meds but he is unclear of what he is taking. He tells me he only has a beer occasionally. He does not drink alcohol daily. certified sweat band separator used. 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 pylori) GERD (gastroesophageal reflux disease) Breast pain Dyslipidemia Essential hypertension Obese Abdominal mass Insomnia Surgical History H/O abdominal surgery History of colonoscopy Family History Father No problems noted. Mother Kidney failure Social History Housing: Apartment Alcohol intake: current Alcohol intake frequency: a few times a month Alcohol type: beer Patient Tobacco Use Status: Former Tobacco user Tobacco use type: Cigarette e-Cigarette/Vaping Use: Never Used Second Hand Smoke Exposure: No service: No Current occupational status: retired Cognitive needs: No Hearing needs: No Vision needs: No Review of Systems Const All systems reviewed & are unremarkable except as noted in HPI and below ENT Denies dizziness Card Denies chest pain, Denies chest pain at rest, Denies chest pain with activity, Denies rapid heart rate, Denies pedal edema, Denies edema, Denies leg edema, Denies lightheadedness, Denies palpitations, Denies dyspnea, Denies dyspnea on exertion and Denies orthopnea Resp Denies cough, Denies dyspnea and Denies dyspnea on exertion GI Denies hematochezia and Denies change in stool character Musc Denies abnormal gait, Denies limited range of motion, Denies muscle cramps, Denies muscle weakness, Denies numbness, Denies radiating pain into limb, Denies stiffness and Denies tingling Neuro Denies abnormal gait, Denies dizziness, Denies numbness and Denies tingling Endo Denies palpitations Physical Exam Vital Signs: Last Vital Signs Pulse 58 07/18/23 11:09 BP 114/72 07/18/23 11:09 BMI result Body Mass Index 37.7 Const General: cooperative, healthy appearing, comfortable and no acute distress Orientation/consciousness: patient oriented x3 Neck Neck: Yes normal visual inspection and Yes no JVD Resp Effort & Inspection: normal respiratory effort Auscultation: clear to auscultation bilaterally, no crackles, no rales, no rhonchi and no wheezes Cardio Jugular venous distension: no JVD Rate: regular rate Rhythm: regular rhythm Heart sounds: S1 normal heart sound present, S2 normal heart sound present, no murmurs and no rubs Neuro General: patient oriented x3 Extrem General: Yes normal to inspection Psych Appearance: grossly normal Mental Status: mental status grossly normal Speech and movement: Normal speech and movement present Office Procedures EKG Details: Today, read by me, Sinus jessica, left axis, nonspecific intraventricular conduction delay ( looks like incomplete LBBB), T wave abnormality inferolateral leads - same as prior, rate 56. 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 Cardiac catheterization back in 2019 showed no significant coronary artery disease. EF has remained down since that time. Echocardiogram done 09/26/2022 showed EF 20-25%. Echo prior to that 09/14/2021 also showed EF 20-25%. He has been on guideline directed medical therapy according to our records. An updated echocardiogram was done on 06/29/2023 showing EF 20-25%, basal inferior akinetic. Today he reports he is feeling very well with no concerning symptoms. NYHA class 1. He admits to drink an occasional beer, not daily. He says he is taking his meds as directed however he is not sure of what they are. Call placed to his pharmacy and they state he has not picked up Entresto since September 2022 when he got a 90 day supply. At this time will have him go home and our registered medical assistant will call him to obtain current list of all meds he is actually taking. Will make sure he has refills for all those medications and that he is taking what he should be. He does not appear in heart failure on examination. I had spent time going over benefits and need for ICD. All questions answered. He is agreeable to proceed. He is aware the ICD does not strength in his heart but will protect him in the event of arrhythmia. Prior to referral need to make sure that he has been on the appropriate meds. Will make addendum to this note. Signs and symptoms of heart failure reviewed. Cardiology follow-up 4 months, sooner if needed. (2) Chronic systolic heart failure: Code(s): I50.22 - Chronic systolic (congestive) heart failure Plan: Stable. (3) Essential hypertension: Comment: Well controlled Code(s): I10 - Essential (primary) hypertension Plan: Well controlled at present. Blood pressure 100/62 (4) Alcohol use: Code(s): Z78.9 - Other specified health status Plan: Continues to admit to periodic alcohol use Quality Reporting (2019) Adult ([facility] ) Smoking risk assessment performed?: Yes Patient Tobacco Use Status: Former Tobacco user Coding Level of Care Code Est Pt Level 4 (98820) Diagnoses NICM (nonischemic cardiomyopathy) I42.8 Chronic systolic heart failure I50.22 Essential hypertension I10 Alcohol use Z78.9 CPT Codes EKG - CPT: 04960-[id number], Complete ([id number]) Time Spent (min) 35
== END 2023-07-18 12:32 | disposition home or self-care (01) ==
PROVIDERS: PCP Internal Medicine; Visit Provider Nurse Practitioner Family
DX: I42.8 Other cardiomyopathies (principal); I50.22 Chronic systolic (congestive) heart failure; I10 Essential (primary) hypertension; Z78.9 Other specified health status
CPT/HCPCS: 93010; 99214

== ENCOUNTER → 2023-07-18 11:05 | Outpatient (BNVA) | payer OTHER, SELFPAY | PROVIDERS: PCP Internal Medicine; Visit Provider Nurse Practitioner Family | DX: I42.8 Other cardiomyopathies (principal); I11.0 Hypertensive heart disease with heart failure; I50.22 Chronic systolic (congestive) heart failure; Z78.9 Other specified health status | CPT/HCPCS: 93005; 99212 ==

== ENCOUNTER 2023-09-11 13:54 | Outpatient (AMB) | payer OTHER, SELFPAY ==
--- NOTE | 2023-09-11 13:58 | A.OFFPC_ITS ---
Vital Signs 09/11/23 14:02 Height 5 ft 2 in Weight 206 lb BMI 37.7 BP 126/80 Blood Pressure Location Lt brachial Position Sitting Intake Visit Reasons: 4M follow up Intake Note: Patient here for a follow up Casework Specialist Required: No Accompanied by: Self / Same As Patient Allergies No Known Allergies [No Known Allergies*] Allergy (Verified 09/11/23 14:21) Medication List - Last Reconciled 09/11/23 by Gina Le MD acetaminophen (Tylenol) 650 mg (2 x 325 mg) PO Q6H PRN aspirin 81 mg PO DAILY atorvastatin 80 mg PO DAILY blood sugar diagnostic ([facility] Ultra Test strips) Use 1 test strip once a day blood-glucose meter ([facility] Ultra2 Meter) As directed cyclobenzaprine 10 mg PO BEDTIME empagliflozin (Jardiance) 10 mg PO DAILY eplerenone 25 mg PO DAILY fluticasone propionate 50 mcg/actuation (Flonase Allergy Relief) 1 spray intranasal DAILY 10 days furosemide 40 mg PO DAILY hydrocortisone 2.5% (Proctosol HC) 1 appl MO BID-QID PRN ibuprofen 800 mg PO Q8H PRN 30 days lancets (FreeStyle Lancets) Use 1 lancet once a day lancets (OneTouch UltraSoft 2 Lancet) Use 1 lancet once a day loratadine 10 mg PO DAILY 10 days methylcellulose (laxative) (Citrucel) 500 mg PO DAILY metoprolol succinate ER 50 mg PO DAILY olanzapine 10 mg PO BEDTIME omeprazole 40 mg PO DAILY sacubitril-valsartan 49-51 mg (Entresto) 1 tab PO BID sennosides (Natural Senna Laxative) 17.2 mg (2 x 8.6 mg) PO BEDTIME sertraline 50 mg PO DAILY Tobacco use date assessed: 09/11/23 Fall risk assessment: No Falls in past year Last assessed Fall Risk: 09/11/23 Dental Screening Dental Screen Date: 09/11/23 Did you have a dental visit in the last 12 months?: No Did you have a dental problem in the last 6 months where you did not have access to dental care?: No Was dental information given to patient?: Patient declined HPI HPI Comments History of Present Illness Details This is a 62-year-old male with diabetes mellitus type 2, chronic systolic congestive heart failure, constipation and mild recurrent major depression that comes today for follow-up on his conditions. A1c within goal. Last echocardiogram showing low ejection fraction and this is follow by cardiology which wants to place a pacemaker but patient declined. He is aware that he can if he does not place the pacemaker as instructed by Cardiology. Has not gain 5 lb in a week. Constipation stable with senna as needed. Depression stable with SSRIs. 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 pylori) GERD (gastroesophageal reflux disease) Breast pain Dyslipidemia Essential hypertension Obese Abdominal mass Insomnia Surgical History H/O abdominal surgery History of colonoscopy Family History Father No problems noted. Mother Kidney failure Social History Housing: Apartment Alcohol intake: current Alcohol intake frequency: a few times a month Alcohol type: beer Patient Tobacco Use Status: Former Tobacco user Tobacco use type: Cigarette e-Cigarette/Vaping Use: Never Used Second Hand Smoke Exposure: No service: No Current occupational status: retired Cognitive needs: No Hearing needs: No Vision needs: No Questionnaire PHQ-9 Over the last 2 weeks, how often have you been bothered by any of the following problems? 1. Little interest or pleasure in doing things: nearly every day 2. Feeling down, depressed, or hopeless: nearly every day 3. Trouble falling or staying asleep, or sleeping too much: several days 4. Feeling tired or having little energy: several days 5. Poor appetite or overeating: more than half the days 6. Feeling bad about yourself - or that you are a failure or have let yourself or your family down: several days 7. Trouble concentrating on things, such as reading the newspaper or watching television: not at all 8. Moving or speaking so slowly that other people could have noticed. Or the opposite - being so fidgety or restless that you have been moving around a lot more than usual: not at all 9. Thoughts that you would be better off or of hurting yourself in some way: not at all Total score: 11 Depression Screening Interpretation: Positive Depression Screening Follow-up: Existing condition, In treatment and Community Mental Health Worker F/U Depression Screening Done: Yes 16433 - PHQ-9 Billing: Yes Source: Developed by Drs. Elias Schilling, Barbie Teague, Flavio Calvin and colleagues, with an educational elroy from [employer]. Thrive Questionnaire Date Thrive assessed: 09/11/23 I am a: Patient What is your living situation today?: I have a steady place to live Within the past 12 months, did the food you bought not last and you didn't have the money to get more?: Never true Within the past 12 months, did you worry whether your food would run out before you got money to buy more?: Never true Do you have trouble paying for medicines?: No Do you have trouble getting transportation to medical appointments?: No Do you have trouble paying your heating and electricity bill?: No Do you have trouble taking care of your child, family member or friend?: No Do you have trouble with day-to-day activities such as bathing, preparing meals, shopping, managing finances, etc.?: No Are you currently unemployed and looking for a job?: No Are you interested in more education?: No Please select the resources that you would like help with: None Currently or been in a relationship where the following occur: no concerns reported THRIVE Score: 0 AUDIT C Alcohol Use Questionnaire (AUDIT-C) 1. How often do you have a drink containing alcohol?: 2-4 times a month 2. How many drinks containing alcohol do you have on a typical day when you are drinking?: 3 or 4 3. How often do you have six or more drinks on one occasion?: Never Total Score: 3 Score Reviewed/Action Taken: Yes MIGUELINA-7 AMB Questionnaire MIGUELINA-7 Date MIGUELINA - 7 assessed: 09/11/23 Feeling nervous, anxious, or on edge: 2 = More than half the days Not being able to stop or control worryin = Not at all Worrying too much about different things: 1 = Several days Trouble relaxin = Not at all Being so restless that it is hard to sit still: 0 = Not at all Becoming easily annoyed or irritable: 1 = Several days Feeling afraid as if something awful might happen: 1 = Several days Total MIGUELINA-7 score (0-4 normal; 5-9 mild; 10-14 moderate; 15-21 severe): 5 Source: Developed by Drs. Elias Schilling, Barbie Teague, Flavio Calvin and colleagues, with an educational elroy from [employer]. MIGUELINA-7 Assessment Billing MIGUELINA-7 Assessment Tool: MIGUELINA-7 Assessment 85680 Review of Systems Const All systems reviewed & are unremarkable except as noted in HPI and below Eyes Reports no additional complaints, Denies change in vision and Denies other visual disturbances Card Denies chest pain at rest, Denies chest pain with activity, Denies edema, Denies irregular heart rhythm, Denies claudication, Denies dyspnea, Denies dyspnea on exertion, Denies orthopnea, Denies paroxysmal nocturnal dyspnea and Denies slow heart rate Resp Denies cough, Denies dyspnea and Denies dyspnea on exertion GI Denies abdominal pain, Denies change in bowel habits, Denies excessive flatus, Denies nausea and Denies vomiting Denies urinary hesitancy, Denies urinary incontinence and Denies urinary urgency Musc Denies abnormal gait, Denies atrophy, Denies deformity and Denies limited range of motion Skin/Breast Denies bleeding lesions, Denies changing lesions and Denies rash Neuro Denies abnormal gait, Denies behavioral changes and Denies lack of coordination Psych Denies behavioral changes Physical exam (Primary Care) Vital Signs: Last Vital Signs BP 126/80 09/11/23 14:02 BMI result Body Mass Index 37.7 Tobacco/Smoking Status: Tobacco use Status Tobacco use date assessed 09/11/23 09/11/23 14:11 Patient Tobacco Use Status Former Tobacco user 09/11/23 14:00 Tobacco use type Cigarette 09/11/23 14:00 e-Cigarette/Vaping Use Never Used 09/11/23 14:00 PHQ-9: PHQ-9 Score PHQ-9: Total score 11 09/11/23 14:24 Depression Screening Interpretation: Positive Depression Screening Follow-up: Existing condition, In treatment and Community Mental Health Worker F/U Thrive Assessment: Date of Thrive Assessment Date Thrive assessed 09/11/23 09/11/23 14:08 Currently or been in a relationship where the following occur: no concerns reported Eyes General: appearance normal, both eyes and all related structures Eyelids: Yes eyelids normal Conjunctivae: conjunctivae normal Neck Neck: Yes normal visual inspection and Yes supple Resp Effort & Inspection: normal respiratory effort Auscultation: clear to auscultation bilaterally Cardio Jugular venous distension: no JVD Rate: regular rate Rhythm: regular rhythm Heart sounds: S1 normal heart sound present and S2 normal heart sound present Extrem General: Yes full ROM Office Procedures Flu Questionnaire Does the patient have a severe egg allergy?: No Results AMB Hemoglobin A1c AMB Hemoglobin A1c 5.7 % Last Edit by FE Coello on 09/11/23 14:1 3 Immunizations flu vacc [id number] 6mos up(PF) 60 mcg(15 mcgx4)/0.5 mL IM syringe Performing Provider: Gina Le MD [facility] Documented (not given) by: FE Coello on 09/11/23 14:11 Reason Not Given: Patient Refused Results Reviewed Results Reviewed: Laboratory Last Values Hgb A1c (Clinic) 5.7 % (4.0-6.0) 09/11/23 13:58 Assessment and Plan Assessment & Plan (1) Diabetes mellitus: Code(s): E11.9 - Type 2 diabetes mellitus without complications Plan: Continue Jardiance. A1c goal is equal or less than 7%. (2) Chronic systolic heart failure: Code(s): I50.22 - Chronic systolic (congestive) heart failure Plan: Continue Entresto. The goal is to not gain 5 lb in a week. Follow-up with Cardiology. (3) Constipation by delayed colonic transit: Code(s): K59.01 - Slow transit constipation Plan: Continue senna as needed. (4) Mild recurrent major depression: Code(s): F33.0 - Major depressive disorder, recurrent, mild Plan: Continue SSRIs. Orders: Orders Microalbumin, Random (w Creat) 4 Months E11.9 - Type 2 diabetes mellitus without complications Vitamin D 25-OH Total 4 Months E55.9 - Vitamin D deficiency, unspecified Influenza [id number] Immunization Today Z23 - Encounter for immunization Lipid Panel 4 Months E78.5 - Hyperlipidemia, unspecified Comprehensive [place]. Panel Fast 4 Months E11.9 - Type 2 diabetes mellitus without complications AMB Hemoglobin A1c Today E11.9 - Type 2 diabetes mellitus without complications Medications: Refilled metoprolol succinate ER 50 mg PO DAILY 90 tabs 3RF sacubitril-valsartan 49-51 mg (Entresto) 1 tab PO BID 180 tabs 3RF I42.8 - Other cardiomyopathies ibuprofen 800 mg PO Q8H PRN 90 tabs 2RF pain 30 days M54.6 - Pain in thoracic spine Coding Level of Care Code Est Pt Level 4 (81554) Diagnoses Diabetes mellitus E11.9 Chronic systolic heart failure I50.22 Constipation by delayed colonic transit K59.01 Mild recurrent major depression F33.0 Additional Codes MIGUELINA-7 Assessment Billing - MIGUELINA-7 Assessment Tool: MIGUELINA-7 Assessment 64455 ([id number]) Time Spent (min) 24
[2023-09-11 14:02] VITALS: BP 126/80; BMI 37.7
== END 2023-09-11 14:32 | disposition home or self-care (01) ==
PROVIDERS: PCP Internal Medicine; Visit Provider Internal Medicine
DX: E11.9 Type 2 diabetes mellitus without complications (principal); I50.22 Chronic systolic (congestive) heart failure; K59.01 Slow transit constipation; F33.0 Major depressive disorder, recurrent, mild
CPT/HCPCS: 83036; 99214

== ENCOUNTER 2023-11-24 09:03 | Outpatient (AMB) | payer OTHER, SELFPAY ==
--- NOTE | 2023-11-24 09:23 | MHC.OFFVIS ---
Intake Vital Signs 11/24/23 09:24 Height 5 ft 2 in Weight 212 lb 8.41 oz BMI 38.9 BP 100/62 Blood Pressure Location Lt brachial Position Sitting Pulse 61 Pulse Source Pulse Oximeter Intake Visit Reasons: Follow up per DC [employer]ppings Required: Yes [employer] Language: Electrical Contacts Adjuster Name: ayla luque [id number] Allergies No Known Allergies [No Known Allergies*] Allergy (Verified 11/24/23 09:27) Medication List - Last Reconciled 11/24/23 by REJI Adamson acetaminophen (Tylenol) 650 mg (2 x 325 mg) PO Q6H PRN aspirin 81 mg PO DAILY atorvastatin 80 mg PO DAILY blood sugar diagnostic ([facility] Ultra Test strips) Use 1 test strip once a day blood-glucose meter ([employer] Ultra2 Meter) As directed cyclobenzaprine 10 mg PO BEDTIME empagliflozin (Jardiance) 10 mg PO DAILY fluticasone propionate 50 mcg/actuation (Flonase Allergy Relief) 1 spray intranasal DAILY 10 days furosemide 40 mg PO DAILY hydrocortisone 2.5% (Proctosol HC) 1 appl ME BID-QID PRN ibuprofen 800 mg PO Q8H PRN 30 days lancets (FreeStyle Lancets) Use 1 lancet once a day lancets (OneTouch UltraSoft 2 Lancet) Use 1 lancet once a day loratadine 10 mg PO DAILY 10 days methylcellulose (laxative) (Citrucel) 500 mg PO DAILY metoprolol succinate ER 50 mg PO DAILY olanzapine 10 mg PO BEDTIME omeprazole 40 mg PO DAILY sacubitril-valsartan 49-51 mg (Entresto) 1 tab PO BID sennosides (Natural Senna Laxative) 17.2 mg (2 x 8.6 mg) PO BEDTIME sertraline 50 mg PO DAILY HPI Follow up per [place] HPI Details Royal is a 62-year-old male with past medical history of hypertension, hyperlipidemia, diabetes, obesity, nonischemic cardiomyopathy, alcohol use who presents for follow-up. Today he reports he is feeling well with no concerning symptoms. He has no chest discomfort at rest or with exertion. No shortness of breath reported. No PND, orthopnea or edema. No lightheadedness, presyncope, syncope, falls. He walks frequently without symptoms. He reports compliance with his meds but again he is unclear of what he is taking. He tells me he only has a beer occasionally. He does not drink alcohol daily. 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 pylori) GERD (gastroesophageal reflux disease) Breast pain Dyslipidemia Essential hypertension Obese Abdominal mass Insomnia Surgical History H/O abdominal surgery History of colonoscopy Family History (Reviewed 11/24/23 @ 11: by Keira Sanderson NP-C) Father No problems noted. Mother Kidney failure Social History Housing: Apartment Alcohol intake: current Alcohol intake frequency: a few times a month Alcohol type: beer Patient Tobacco Use Status: Former Tobacco user Tobacco use type: Cigarette e-Cigarette/Vaping Use: Never Used Second Hand Smoke Exposure: No service: No Current occupational status: retired Cognitive needs: No Hearing needs: No Vision needs: No Review of Systems Const All systems reviewed & are unremarkable except as noted in HPI and below ENT Denies dizziness Card Denies chest pain, Denies chest pain at rest, Denies chest pain with activity, Denies rapid heart rate, Denies pedal edema, Denies edema, Denies leg edema, Denies lightheadedness, Denies palpitations, Denies dyspnea, Denies dyspnea on exertion and Denies orthopnea Resp Denies cough, Denies dyspnea and Denies dyspnea on exertion GI Denies hematochezia and Denies change in stool character Musc Denies abnormal gait, Denies limited range of motion, Denies muscle cramps, Denies muscle weakness, Denies numbness, Denies radiating pain into limb, Denies stiffness and Denies tingling Neuro Denies abnormal gait, Denies dizziness, Denies numbness and Denies tingling Endo Denies palpitations Physical Exam Vital Signs: Last Vital Signs Pulse 61 11/24/23 09:24 BP 100/62 11/24/23 09:24 BMI result Body Mass Index 38.9 Const General: cooperative, healthy appearing, comfortable and no acute distress Orientation/consciousness: patient oriented x3 Neck Neck: Yes normal visual inspection Resp Effort & Inspection: normal respiratory effort Auscultation: clear to auscultation bilaterally, no crackles, no rales, no rhonchi and no wheezes Cardio Jugular venous distension: no JVD Rate: regular rate Rhythm: regular rhythm Heart sounds: S1 normal heart sound present, S2 normal heart sound present, no murmurs and no rubs Neuro General: patient oriented x3 Extrem General: Yes normal to inspection, No no pedal edema and No calf tenderness Psych Appearance: grossly normal Mental Status: mental status grossly normal Speech and movement: Normal speech and movement present Assessment & Plan Assessment & Plan (1) NICM (nonischemic cardiomyopathy): Comment: Clinically compensated Code(s): I42.8 - Other cardiomyopathies Plan: History of nonischemic cardiomyopathy, 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 Cardiac catheterization back in 2019 showed no significant coronary artery disease. EF has remained down since that time. Echocardiogram done 09/26/2022 showed EF 20-25%. Echo prior to that 09/14/2021 also showed EF 20-25%. He has been on guideline directed medical therapy according to our records. An updated echocardiogram was done on 06/29/2023 showing EF 20-25%, basal inferior akinetic. On last visit he was unsure of what meds he was taking. Call placed to his pharmacy and told that he had not picked up Entresto since 09/2022. Our Croatian-speaking MA communicated with him regarding recommended medication list and refills were sent on his cardiac meds. Today he is still unsure what his medications are. Call placed to his pharmacy again and we have confirmed he has picked up furosemide, metoprolol, Entresto, Jardiance recently. He tells me he takes all his meds daily. At this time will recheck an echocardiogram to reassess EF. If EF remains less than 35% then ICD would be indicated. He has been on appropriate med management and seemingly compliant. NYHA class 1. He admits to drink an occasional beer, not daily. He does not appear in heart failure on examination. I had spent time going over benefits and need for ICD. All questions answered. He is agreeable to proceed. He is aware the ICD does not strength in his heart but will protect him in the event of arrhythmia. Prior to referral will recheck limited echocardiogram to reassess EF. Cardiology follow-up 3 months, sooner if needed (2) Chronic systolic heart failure: Code(s): I50.22 - Chronic systolic (congestive) heart failure Plan: Stable. (3) Essential hypertension: Comment: Well controlled Code(s): I10 - Essential (primary) hypertension Plan: Well controlled at present. Blood pressure 100/62 (4) Alcohol use: Code(s): Z78.9 - Other specified health status Plan: Continues to admit to periodic alcohol use Plan Time spent on chart review, documentation, interview and assessment Orders: Orders CA echo limited Today I42.8 - Other cardiomyopathies Quality Reporting (2019) Adult ([facility] ) Smoking risk assessment performed?: Yes Patient Tobacco Use Status: Former Tobacco user Coding Level of Care Code Est Pt Level 4 (98839) Diagnoses NICM (nonischemic cardiomyopathy) I42.8 Chronic systolic heart failure I50.22 Essential hypertension I10 Alcohol use Z78.9 Time Spent (min) 30
[2023-11-24 09:24] VITALS: BP 100/62; PULSE 61; BMI 38.9
== END 2023-11-24 10:06 | disposition home or self-care (01) ==
PROVIDERS: PCP Internal Medicine; Visit Provider Nurse Practitioner Family
DX: I42.8 Other cardiomyopathies (principal); I50.22 Chronic systolic (congestive) heart failure; I10 Essential (primary) hypertension; Z78.9 Other specified health status
CPT/HCPCS: 99214

== ENCOUNTER → 2023-11-24 09:03 | Outpatient (BNVA) | payer OTHER, SELFPAY | PROVIDERS: PCP Internal Medicine; Visit Provider Nurse Practitioner Family | DX: I42.8 Other cardiomyopathies (principal); I11.0 Hypertensive heart disease with heart failure; I50.22 Chronic systolic (congestive) heart failure; Z78.9 Other specified health status | CPT/HCPCS: 99212 ==

== ENCOUNTER → 2023-12-20 14:34 | Outpatient (REF) | payer OTHER, SELFPAY ==
--- NOTE | 2023-12-20 14:42 | CA_ITS ---
Transthoracic Echocardiogram Patient (Last, First, Middle): Royal Glover, Gender: Male Date of : 1960 Age: 63 Procedure Date: 12/20/2023 Procedure Type: Transthoracic Echocardiogram Location: OP Height: 157.48 cm Weight: 92.99 kg BSA: 1.93 m2 Heart Rate: bpm BP: 102 / 60 mmHg Food Mixer Repairer: TO Referring MD: Keira Sanderson ECONOMIC MANAGERPietro Symptoms: I42.8 - Other cardiomyopathies Study Quality: Fair, contrast Conclusions: - Severely dilated left ventricle with moderate to severe LV systolic dysfunction with LVEF of 30-35% with regional wall motion abnormality consistent with ischemic cardiomyopathy Findings Procedure Information Contrast agent, definity, is being given per protocol without apparent complications. Left Ventricle Severely increased left ventricular cavity size. There is normal left ventricular wall thickness. The left ventricular systolic function is moderate to severely decreased. The visually estimated ejection fraction is between 30-35%. There is evidence of regional wall motion abnormalities. Spectral Doppler is indicative of a pseudonormal filling pattern. E/E prime ratio is between 8 and 15 consistent with indeterminate filling pressures. Wall Motion Rest Echo Findings The apical inferior segment is hypokinetic. The inferoseptal wall, inferolateral wall, the basal inferior, and mid inferior segments are akinetic. Prior Study Comparison Changes noted compared to prior study dated: 06/29/2023. LV systolic function is improved but still moderately to severely reduced Measurements 2D Linear Measurements IVSd: 1.02 0.6-0.9/0.6-1.0 cm LVIDd: 7.40 3.9-5.3/4.2-5.9 cm LVIDd Index: 3.83 2.4-3.2/2.2-3.1 cm/m2 LVIDs: 6.24 2.0-3.6 cm LVPWd: 0.94 0.7-1.1 cm LV Mass: 431.94 67-162/88-224 g LV Mass Index: 223.80 43-95/49-115 g/m2 LVOT Diam: 2.30 3.0+(-)1.3 cm 2D Systolic Function EF 4C: 31.00 >55% EF 2C: 32.90 >55% EF BiP: 31.00 >55% Mitral Valve MV Pk E: 1.02 MV PK A: 0.51 MV Decel Time: 231.00 E/A: 2.00 E'Lateral: 8.70 E'Medial: 5.66 E/E' Med: 18.00 E/E' Lat: 11.70 PHT: 68.00 MVA PHT: 3.24 Decel King: 4.41 LVOT LVOT Pk Noel: 1.02 LVOT Mn Noel: 0.66 LVOT VTI: 0.20 LVOT Pk Grad: 4.00 LVOT Mn Grad: 2.00 LVOT Diam: 2.30 LVOT Area: 4.15 Diastolic Function MV Pk E: 1.02 MV Pk A: 0.51 E/A: 2.00 E'Medial: 5.66 E/E' Med: 18.00 E' Laterial: 8.70 E/E' Lat: 11.70 Tricuspid Valve RA Press: 3.00 Updated in Other Vendor System with Status of Final Marcos Osuna MD electronically signed on 12/20/2023 4:29:24 PM with status of Final
== END ==
LOC: HO.CARD 14:34
PROVIDERS: PCP Internal Medicine; Visit Provider Nurse Practitioner Family
DX: I42.8 Other cardiomyopathies (principal)
CPT/HCPCS: 93308; Q9957

== ENCOUNTER → 2023-12-20 14:42 | Outpatient (BNV) | payer OTHER, SELFPAY | PROVIDERS: PCP Internal Medicine; Visit Provider Internal Medicine Cardiovascular Disease | DX: I25.5 Ischemic cardiomyopathy (principal) | CPT/HCPCS: 93308; 93321; 93325 ==

== ENCOUNTER 2024-02-12 12:32 | Outpatient (AMB) | payer OTHER, SELFPAY ==
[2024-02-12 12:47] VITALS: BP 94/60; PULSE 60; BMI 39.2
--- NOTE | 2024-02-12 12:47 | MHC.OFFVIS ---
Vital Signs 02/12/24 12:47 Height 5 ft 2 in Weight 214 lb 4.629 oz BMI 39.2 BP 94/60 Blood Pressure Location Rt brachial Position Sitting Pulse 60 Intake Visit Reasons: 3mth f/up Intake Note: 3 month f/u Top Spotter Required: Yes Top Spotter Name: hortencia [id number]/[email or web address] Accompanied by: Self / Same As Patient Allergies No Known Allergies [No Known Allergies*] Allergy (Verified 11/24/23 09:27) Medication List - Last Reconciled 02/12/24 by REJI Adamson acetaminophen (Tylenol) 650 mg (2 x 325 mg) PO Q6H PRN aspirin 81 mg PO DAILY atorvastatin 80 mg PO DAILY blood sugar diagnostic (2theloouch Ultra Test strips) Use 1 test strip once a day blood-glucose meter (2theloouch Ultra2 Meter) As directed cyclobenzaprine 10 mg PO BEDTIME empagliflozin (Jardiance) 10 mg PO DAILY fluticasone propionate 50 mcg/actuation (Flonase Allergy Relief) 1 spray intranasal DAILY 10 days furosemide 40 mg PO DAILY hydrocortisone 2.5% (Proctosol HC) 1 appl [place] BID-QID PRN ibuprofen 800 mg PO Q8H PRN 30 days lancets (FreeStyle Lancets) Use 1 lancet once a day lancets (OneTouch UltraSoft 2 Lancet) Use 1 lancet once a day loratadine 10 mg PO DAILY 10 days methylcellulose (laxative) (Citrucel) 500 mg PO DAILY metoprolol succinate ER 50 mg PO DAILY olanzapine 10 mg PO BEDTIME omeprazole 40 mg PO DAILY sacubitril-valsartan 49-51 mg (Entresto) 1 tab PO BID sennosides (Natural Senna Laxative) 17.2 mg (2 x 8.6 mg) PO BEDTIME sertraline 50 mg PO DAILY HPI HPI 3mth f/up: Details: Royal is a 63-year-old male with past medical history of hypertension, hyperlipidemia, diabetes, obesity, nonischemic cardiomyopathy, alcohol use who presents for follow-up after recent echocardiogram. Today he reports he is feeling well with no concerning symptoms. He has no chest discomfort at rest or with exertion. No shortness of breath reported. No PND, orthopnea or edema. No lightheadedness, presyncope, syncope, falls. He walks frequently without symptoms. He reports compliance with his meds. He tells me he only has a beer occasionally. He does not drink alcohol daily. 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 pylori) GERD (gastroesophageal reflux disease) Breast pain Dyslipidemia Essential hypertension Obese Abdominal mass Insomnia Surgical History H/O abdominal surgery History of colonoscopy Family History Father No problems noted. Mother Kidney failure Social History Housing: Apartment Alcohol intake: current Alcohol intake frequency: a few times a month Alcohol type: beer Patient Tobacco Use Status: Former Tobacco user Tobacco use type: Cigarette e-Cigarette/Vaping Use: Never Used Second Hand Smoke Exposure: No service: No Current occupational status: retired Cognitive needs: No Hearing needs: No Vision needs: No Review of Systems Const All systems reviewed & are unremarkable except as noted in HPI and below Denies chills, Denies fatigue, Denies fever(s), Denies frequent falls, Denies weakness, Denies weight gain and Denies weight loss ENT Denies dizziness Card Denies chest pain, Denies leg edema, Denies lightheadedness, Denies palpitations, Denies dyspnea on exertion and Denies orthopnea Resp Denies cough and Denies dyspnea on exertion GI Denies hematochezia and Denies change in stool character Musc Denies abnormal gait, Denies muscle weakness, Denies numbness and Denies radiating pain into limb Neuro Denies abnormal gait, Denies dizziness, Denies frequent falls, Denies numbness and Denies weakness Endo Denies fatigue and Denies palpitations Physical Exam Vital Signs: Last Vital Signs Pulse 60 02/12/24 12:47 BP 94/60 02/12/24 12:47 BMI result Body Mass Index 39.2 Const General: cooperative, healthy appearing, comfortable and no acute distress Orientation/consciousness: patient oriented x3 Neck Neck: Yes normal visual inspection Resp Effort & Inspection: normal respiratory effort Auscultation: clear to auscultation bilaterally, no crackles, no rales, no rhonchi and no wheezes Cardio Jugular venous distension: no JVD Rate: regular rate Rhythm: regular rhythm Heart sounds: S1 normal heart sound present, S2 normal heart sound present, no murmurs and no rubs Neuro General: patient oriented x3 Extrem General: Yes normal to inspection, No no pedal edema and No calf tenderness Psych Appearance: grossly normal Mental Status: mental status grossly normal Speech and movement: Normal speech and movement present Quality Reporting (2019) Adult ([facility] 138/10/05/68) Smoking risk assessment performed?: Yes Patient Tobacco Use Status: Former Tobacco user Assessment & Plan Assessment & Plan (1) NICM (nonischemic cardiomyopathy): Comment: Clinically compensated Code(s): I42.8 - Other cardiomyopathies Category: Medical Plan: History of nonischemic cardiomyopathy, 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 Cardiac catheterization back in 2019 showed no significant coronary artery disease. EF has remained down since that time. Echocardiogram done 09/26/2022 showed EF 20-25%. Echo prior to that 09/14/2021 also showed EF 20-25%. He has been on guideline directed medical therapy according to our records. An updated echocardiogram was done on 06/29/2023 showing EF 20-25%, basal inferior akinetic. He has had issues with med noncompliance. After prior visit, Our Setsw[place]-speaking MA communicated with him regarding recommended medication list and refills were sent on his cardiac meds. On last visit he was still unsure of his meds. Call placed to his pharmacy and we have confirmed he has picked up furosemide, metoprolol, Entresto, Jardiance recently. Today he tells me he is taking all his meds as directed. He says he has gotten refills when the bottles have run out. Echocardiogram done 12/20/2023 showed EF 30-35%, wall motion abnormality consistent with ischemic cardiomyopathy. Based on prior cardiac catheterization he has no significant CAD. He has no reports of anginal sounding symptoms. On exam he has no clinical signs of decompensated heart failure. NYHA class 1. His meds are optimized. He has already been referred to electrophysiology for a defibrillator. This was previously discussed with him and he is agreeable to proceed. He has not received a call from that office yet. Will check with our inspector soldering to ensure that referral has gone through. He admits to drink an occasional beer, not daily. -recommended full cessation. Continue all meds without change. Need for strict compliance reviewed with him. Cardiology follow-up 3-4 months, sooner if needed. (2) Chronic systolic heart failure: Code(s): I50.22 - Chronic systolic (congestive) heart failure Category: Medical Plan: Stable. (3) Essential hypertension: Comment: Well controlled Code(s): I10 - Essential (primary) hypertension Category: Medical Plan: Well controlled at present. Blood pressure 94/60 (4) Alcohol use: Code(s): Z78.9 - Other specified health status Category: Social Hx Plan: Continues to admit to periodic alcohol use Plan Time spent on chart review, documentation, interview and assessment Coding Level of Care Code Est Pt Level 4 (90419) Diagnoses NICM (nonischemic cardiomyopathy) I42.8 Chronic systolic heart failure I50.22 Essential hypertension I10 Alcohol use Z78.9 Time Spent (min) 28
== END 2024-02-12 13:26 | disposition home or self-care (01) ==
PROVIDERS: PCP Internal Medicine; Visit Provider Nurse Practitioner Family
DX: I42.8 Other cardiomyopathies (principal); I50.22 Chronic systolic (congestive) heart failure; I10 Essential (primary) hypertension; Z78.9 Other specified health status
CPT/HCPCS: 99214

== ENCOUNTER → 2024-02-12 12:32 | Outpatient (BNVA) | payer OTHER, SELFPAY | PROVIDERS: PCP Internal Medicine; Visit Provider Nurse Practitioner Family | DX: I42.8 Other cardiomyopathies (principal); I11.0 Hypertensive heart disease with heart failure; I50.22 Chronic systolic (congestive) heart failure; Z78.9 Other specified health status | CPT/HCPCS: 99212 ==

== ENCOUNTER 2024-03-08 07:28 | Emergency (ER) | payer OTHER, SELFPAY ==
[2024-03-08] VITALS (8 sets, daily range): BP systolic 92–119; BP diastolic 64–78; PULSE 57–65; RESP 16–24; TEMP 36.5–36.6; O2SAT 92–93; BMI 38.8
--- NOTE | ~2024-03-08 | XR_ITS ---
EXAMINATION: XR CHEST CLINICAL INFORMATION: Cough. COMPARISON: 05/19/2019 TECHNIQUE: 2 views of the chest were obtained. FINDINGS: The lungs are moderately expanded. There is pulmonary vascular redistribution. Diffuse prominence of the interstitium. The heart is enlarged but stable. Focal nodular density projecting over the right suprahilar region measuring 3 cm. This may represent overlapping soft tissues. No significant pleural effusion. Right hemidiaphragm remains elevated. XR/XR chest 2V IMPRESSION: Pulmonary vascular congestion/interstitial edema. 3 cm nodular density projecting over the right suprahilar region possibly representing overlapping soft tissues. Short interval follow-up imaging is advised.
--- NOTE | ~2024-03-08 | CT_ITS ---
EXAMINATION: CT ABDOMEN AND PELVIS WITH CONTRAST CLINICAL INFORMATION: Left lower quadrant pain. Nausea and vomiting. COMPARISON: None available. TECHNIQUE: Multidetector volumetric images were obtained from the superior aspect of the liver through the pubic symphysis following administration 85 mL of Omnipaque 350 intravenous contrast. Sagittal and coronal reformatted images were obtained on the technologist's workstation. Oral contrast: No This CT examination was performed using dose optimization techniques as appropriate, variously including the following: *Automated exposure control *Adjustment of mA and/or kV according to patient size (this includes techniques or standardized protocols for targeted exams where dose is matched to indication/reason for exam; i.e. extremities or head) *Use of iterative reconstruction technique DLP: 828 mGy-cm FINDINGS: LUNG BASES: Small to moderate bilateral pleural effusions, right greater than left. Cardiac enlargement. No pericardial effusion. LIVER, GALLBLADDER, AND BILIARY TREE: The liver is decreased in attenuation. No focal hepatic lesion or biliary ductal dilatation is present. The gallbladder is unremarkable with no evidence of radiopaque gallstones, gallbladder wall thickening, or obvious pericholecystic inflammatory changes. PANCREAS: Unremarkable. SPLEEN: Not enlarged. ADRENAL GLANDS: No adrenal mass. KIDNEYS AND URETERS: The kidneys enhance symmetrically. Midpole left renal cyst for which no further imaging follow-up is needed. There is a wedge-shaped area of heterogeneous hypoattenuation within the anterior midpole measuring 4.8 x 2.9 cm. There is associated perinephric stranding. There is probable cortical scarring lateral midpole of the right kidney. No hydronephrosis. BLADDER: Underdistended. GASTROINTESTINAL TRACT: Surgical anastomosis in the rectosigmoid colon. Scattered colonic diverticula. No small bowel obstruction. Appendix is within normal limits. ABDOMINAL WALL: No significant hernia is appreciated. LYMPH NODES: No bulky lymphadenopathy. VASCULAR: Normal caliber abdominal aorta. PELVIC VISCERA: Mild enlargement of the prostate gland. OSSEOUS STRUCTURES: No destructive bone lesions. CT/CT abdomen pelvis w IV con IMPRESSION: There is a wedge-shaped area of heterogeneous hypoattenuation within the anterior midpole measuring 4.8 x 2.9 cm. There is associated perinephric stranding. This may represent acute pyelonephritis. Advise clinical correlation. Small moderate bilateral pleural effusions, right greater than left. Hepatic steatosis.
--- NOTE | 2024-03-08 08:23 | ECG_ITS ---
Test Reason : abdominal pain Blood Pressure : / mmHG Vent. Rate : 060 BPM Atrial Rate : 060 BPM P-R Int : 166 ms QRS Dur : 126 ms QT Int : 470 ms P-R-T Axes : 048 -29 -07 degrees QTc Int : 470 ms Sinus rhythm with frequent Premature ventricular complexes Abnormal ECG When compared with ECG of 19-MAY-2019 02:33, Sinus rhythm has replaced Atrial fibrillation Vent. rate has decreased BY 68 BPM Referred By: Kathy Xavier Electronically Signed By:JACQUE NOE
[2024-03-08] MEDS: 0.9 % Sodium Chloride 500 ML 999 ML IV (08:35)
[2024-03-08] MEDS: Morphine Sulfate 2 MG/ML CARTRIDGE IVPUSH (08:36)
--- NOTE | 2024-03-08 08:38 | ED.ABDPAIN ---
HPI - Abdominal Pain General Chief Complaint: Abdominal Pain Stated Complaint: abd pain, spitting blood Time Seen by Provider: 03/08/24 07:52 Source: patient, RN notes reviewed and old records reviewed Mode of arrival: ambulatory History of Present Illness ED Provider: Kathy Xavier PA-C HPI narrative: 63-year-old male with a past medical history of MIGUELINA, GERD, HTN, colon perforation, presenting to the ED complaining of left-sided abdominal pain and nausea x this morning. Also reports productive cough of phlegm and hemoptysis x this morning after forceful coughing episode. Reports generalized fatigue/malaise. Denies taking anticoagulation, chest pain, shortness breath, vomiting, diarrhea, bloody BMs, dysuria/hematuria Related Data Home Medications ?Medication ?Instructions ?Recorded ?Confirmed olanzapine 10 mg tablet 10 mg PO BEDTIME 06/14/21 02/12/24 sertraline 50 mg tablet 50 mg PO DAILY 06/14/22 02/12/24 Previous Rx's ?Medication ?Instructions ?Recorded loratadine 10 mg tablet 10 mg PO DAILY 10 days #10 tabs 06/16/21 fluticasone propionate 50 1 spray intranasal DAILY 10 days 07/14/21 mcg/actuation nasal #150 mL spray,suspension (Flonase Allergy Relief) hydrocortisone 2.5 % topical cream 1 appl [place] BID-QID PRN hemorrhoids 10/19/21 with perineal applicator #30 grams (Proctosol HC) acetaminophen 325 mg tablet 650 mg (2 x 325 mg) PO Q6H PRN 12/05/21 (Tylenol) pain #40 tabs cyclobenzaprine 10 mg tablet 10 mg PO BEDTIME #14 tabs 06/01/22 omeprazole 40 mg capsule,delayed 40 mg PO DAILY #90 caps 06/14/22 release sennosides 8.6 mg tablet (Natural 17.2 mg (2 x 8.6 mg) PO BEDTIME 06/14/22 Senna Laxative) constipation #180 tabs methylcellulose (laxative) 500 mg 500 mg PO DAILY #90 tabs 11/08/22 tablet (Citrucel) lancets 28 gauge (FreeStyle #100 ea 01/17/23 Lancets) furosemide 40 mg tablet 40 mg PO DAILY #90 tabs 04/20/23 blood sugar diagnostic (OneTouch #100 ea 05/09/23 Ultra Test strips) blood-glucose meter (OneTouch #1 ea 05/09/23 Ultra2 Meter) lancets 30 gauge (OneTouch #100 ea 05/09/23 UltraSoft 2 Lancet) aspirin 81 mg tablet,delayed 81 mg PO DAILY #90 tabs 09/11/23 release atorvastatin 80 mg tablet 80 mg PO DAILY #90 tabs 09/11/23 metoprolol succinate 50 mg 50 mg PO DAILY #90 tabs 09/11/23 tablet,extended release 24 hr sacubitril 49 mg-valsartan 51 mg 1 tab PO BID #180 tabs 09/11/23 tablet (Entresto) empagliflozin 10 mg tablet 10 mg PO DAILY #30 tabs 10/16/23 (Jardiance) ibuprofen 800 mg tablet 800 mg PO Q8H PRN pain 30 days #90 01/19/24 tabs benzonatate 100 mg capsule 100 mg PO TID PRN cough #14 caps 03/08/24 cefpodoxime 200 mg tablet 200 mg PO BID 7 days #14 tabs 03/08/24 prednisone 20 mg tablet 40 mg (2 x 20 mg) PO DAILY 5 days 03/08/24 #10 tabs Allergies Allergy/AdvReac Type Severity Reaction Status Date / Time No Known Allergies Allergy Verified 03/08/24 07:47 [No Known Allergies*] Review of Systems Review of Systems Constitutional: No Fever, No Chills, +fatigue ENT/Mouth: No Ear Pain, No Nasal Congestion, No sore throat, No Rhinorrhea, No Swallowing Difficulty Cardiovascular: No Chest Pain, No SOB Respiratory: + Cough, + Sputum, No Wheezing Gastrointestinal: + Nausea, No Vomiting, No Diarrhea, No Constipation, + Abdominal pain Genitourinary: No Dysuria, No Urinary Frequency, No Hematuria, No Flank Pain Musculoskeletal: No joint pain, No Myalgias, No Joint Swelling Skin: No Skin Lesions, No rash Neuro: No Weakness, No Numbness, No Paresthesias Yes all other systems are reviewed and are negative Constitutional: Reports as per [facility] Past Medical History Attestation statement: The following information was validated with the patient. 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 pylori) GERD (gastroesophageal reflux disease) Breast pain Dyslipidemia Essential hypertension Obese Abdominal mass Insomnia Surgical History H/O abdominal surgery History of colonoscopy Family History Family History Father No problems noted. Mother Kidney failure Social History Social History Housing: Apartment Alcohol intake: current Alcohol intake frequency: a few times a month Alcohol type: beer Patient Tobacco Use Status: Former Tobacco user Tobacco use type: Cigarette Smoked in Last 30 Days: No e-Cigarette/Vaping Use: Never Used Second Hand Smoke Exposure: No Use of substances other than those prescribed or required for medical reasons: No Advance Directives: No Advance Directives Information Provided: Yes Do you have a plan to hurt others: No Plan service: No Current occupational status: retired Cognitive needs: No Hearing needs: No Vision needs: No Physical Exam ED Vital Signs: Vital Signs - 24 hr 03/08/24 07:42 03/08/24 07:52 03/08/24 08:36 Temperature 97.8 F 97.7 F Pulse Rate 60 65 Respiratory Rate 22 H 16 24 H Blood Pressure 119/65 113/64 Pulse Oximetry 93 93 Oxygen Delivery Method Room Air Room Air 03/08/24 10:00 03/08/24 10:34 03/08/24 10:35 Temperature Pulse Rate 60 60 Respiratory Rate 16 24 H Blood Pressure 92/65 105/69 105/69 Pulse Oximetry 92 Oxygen Delivery Method Room Air 03/08/24 11:13 Temperature Pulse Rate 57 Respiratory Rate 20 Blood Pressure 111/78 Pulse Oximetry 92 Oxygen Delivery Method Room Air BMI result Body Mass Index 38.8 Const General: cooperative, healthy appearing and no acute distress Orientation/consciousness: patient oriented x3 Limitations: no limitations HENMT Head: Yes normal to inspection and Yes atraumatic Ears: hearing grossly normal bilaterally General nose exam: Normal external nose present Face and sinus: Yes normal facial exam Eyes General: appearance normal, both eyes and all related structures EOM: EOMs intact bilaterally Neck Neck: Yes normal visual inspection and Yes no meningeal signs Resp Effort & Inspection: normal respiratory effort and no respiratory distress Auscultation: clear to auscultation bilaterally, no crackles, no rales, no rhonchi and no wheezes Cardio Rate: regular rate Heart sounds: S1 normal heart sound present and S2 normal heart sound present GI Inspection: Yes normal to inspection Palpation (GI): Soft to palpation, Tenderness to palpation present (GI) in the LLQ; with no rebound tenderness, no guarding and not rigid General: Yes no CVA tenderness Back/Spine/Pelvis Back: no CVA tenderness Skin Rashes: no rashes Wounds: no wounds Neuro General: patient oriented x3, tone normal and no meningeal signs Cranial nerves: Yes CN's II-XII intact bilaterally Gait exam (Neuro): Normal gait present Extrem General: Yes normal to inspection and Yes edema (+1 bilaterally) Course Course Course Narrative: -1014--no leukocytosis. H and H stable. BUN mildly elevated to 23 -BNP chronically elevated. COVID/flu/RSV negative XR chest 2V IMPRESSION: Pulmonary vascular congestion/interstitial edema. 3 cm nodular density projecting over the right suprahilar region possibly representing overlapping soft tissues. Short interval follow-up imaging is advised. > will give dose of IV Lasix > no hypoxia. 1054-CT abdomen pelvis w IV con IMPRESSION: There is a wedge-shaped area of heterogeneous hypoattenuation within the anterior midpole measuring 4.8 x 2.9 cm. There is associated perinephric stranding. This may represent acute pyelonephritis. Advise clinical correlation. Small moderate bilateral pleural effusions, right greater than left. Hepatic steatosis. >>Will tx with IV Rocephin due to pain, although UA not infected -also discharge patient home with p.o. prednisone for bronchitis Results discussed with patient including worrisome signs and symptoms and strict return precautions, and when to return to the emergency department. They verbalized understanding and feel safe for discharge at this time. Medical Decision Making Medical Decision Making MDM Narrative: 63-year-old male with a past medical history of MIGUELINA, GERD, HTN, colon perforation, presenting to the ED complaining of left-sided abdominal pain and nausea x this morning. Also reports productive cough of phlegm and hemoptysis x this morning after forceful coughing episode. On exam mildly tachypneic, anxious, NAD, nontoxic appearing abdomen soft with left lower quadrant tenderness, no rebound or guarding, no CVAT. Lungs CTA. Bilateral LE edema noted. Concern for diverticulitis vs colitis. Lower suspicion for appendicitis/SBO or renal colic. Concern for bronchitis vs pneumonia vs CHF. Lower suspicion for ACS/PE or malignancy at this time Plan: EKG, labs, viral testing, CXR, CT AP, re-evaluate Please refer to course for remaining clinical decision making, interpretation of labs/imaging results, and discussions with consultants and/or family members. Differential Diagnosis Differential Diagnoses: The differential diagnosis associated with the presentation includes As above Admission/Observation Consideration of admission/observation: Escalation of care including admission/observation considered Lab Data MDM Lab Attestation statement: I reviewed the patient's lab results. 03/08/24 08:34 03/08/24 08:34 Labs: Lab Results 03/08/24 03/08/24 Range/Units 08:34 09:09 WBC 10.4 (4.8-10.8) X10*3/uL RBC 4.75 (4.60-5.80) X10*6/uL Hgb 14.3 (14.0-18.0) g/dl Hct 41.7 L (42.0-52.0) % MCV 87.8 (80.0-98.0) fL MCH 30.1 (27.0-33.0) pg MCHC 34.3 (31.0-36.0) g/dl RDW 14.2 (11.0-16.0) % Plt Count 217 (160-400) X10*3/uL MPV 12.0 (9.4-12.4) fL Immature Gran % (Auto) 0.2 (0.0-0.4) % Neut % (Auto) 84.1 H (45-73) % Lymph % (Auto) 9.2 L (20-40) % [place] % (Auto) 5.3 (2-11) % Eos % (Auto) 0.6 (0-4) % Baso % (Auto) 0.6 (0-2) % Lymph # (Auto) 1.0 L (1.2-4.9) X10*3/uL [place] # (Auto) 0.6 (0.1-1.2) X10*3/uL Eos # (Auto) 0.1 (0.0-0.4) X10*3/uL Baso # (Auto) 0.1 (0.0-0.2) X10*3/uL Abs Immat Gran (auto) 0.02 (0.00-0.03) X10*3/uL Absolute Neuts (auto) 8.8 H (2.0-8.3) x10*3/uL Absolute Nucleated RBC 0.000 (0.0-0.012) X10*3/uL Nucleated RBC % (auto) 0.0 (0.0-0.2) /100WBC PT 12.7 (11.1-13.3) SEC INR 1.0 (0.9-1.1) Sodium 139 (135-145) mmol/L Potassium 3.8 (3.3-5.1) mmol/L Chloride 112 H (96-108) mmol/L Carbon Dioxide 20 L (22-29) mmol/L Anion Gap 11 L (12-20) BUN 23 H (9-16) mg/dL Creatinine 1.05 (0.5-1.4) mg/dL Estim Creat Clear Calc 70.6 Estimated GFR > 60 Random Glucose 138 H (60-115) mg/dL Calcium 8.8 D (8.4-10.2) mg/dL Magnesium 2.1 (1.6-2.6) mg/dL Total Bilirubin 0.7 (0.0-1.0) mg/dL Direct Bilirubin 0.2 (0.0-0.5) mg/dL AST 22 (5-37) U/L ALT 23 (0-40) U/L Alkaline Phosphatase 57 (39-117) U/L B-Natriuretic Peptide 663 H (<100) pg/mL Total Protein 6.6 (6.5-8.0) g/dL Albumin 4.0 (3.5-5.0) g/dL Lipase 15 (8-78) U/L Urine Color Yellow Urine Appearance Clear Urine pH 5.5 (5.0-9.0) Ur Specific [place] 1.020 (1.005-1.025) Urine Protein Negative (Neg-Trace) mg/dL Urine Glucose (UA) Negative (Negative) mg/dL Urine Ketones Negative (Negative) mg/dL Urine Blood Negative (Negative) Urine Nitrite Negative (Negative) Ur Leukocyte Esterase Negative (Negative) Influenza Type A (PCR) NEGATIVE (Negative) Influenza Type B (PCR) NEGATIVE (Negative) RSV RNA Qual (PCR) NEGATIVE (Negative) SARS-CoV-2 RNA (RT-PCR) NEGATIVE (Negative) Independent Interpretation I performed an independent interpretation of an: EKG (My interpretation EKG sinus rhythm with premature ventricular complexes, rate of 60. QRS 126. No STEMI. Nonischemic) Radiology Impression Discussion of test interpretation with radiology: I have reviewed the radiologist's reading. Independent Historian Clinical information obtained from an independent historian. History obtained from or confirmed by: Spouse External Record Review External record reviewed: Inpatient record, Office record, Outpatient record, Prior outpatient labs, Prior outpatient radiology, Primary care record and Outside ED record Tests considered The following testing was considered but not selected: As above Chronic Conditions Patient?s care impacted by: Hypertension Medications Administered Discontinued Medications Generic Name Dose Route Start Last Admin Trade Name Freq PRN Reason Stop Dose Admin Furosemide 40 mg 03/08/24 10:17 03/08/24 10:35 Furosemide 40 Mg/4 Ml Vial IVPUSH 03/08/24 10:18 40 mg STAT STA Administration Protocol Sodium Chloride 500 mls @ 999 mls/hr 03/08/24 08:30 03/08/24 09:25 Ns IV 03/08/24 09:00 Infused .Q31M RAYMOND Infusion Ceftriaxone Sodium 1 gm/ 50 mls @ 100 mls/hr 03/08/24 10:57 03/08/24 11:12 Sodium Chloride IV 03/08/24 11:26 100 mls/hr ONCE ONE Administration Iohexol 100 ml 03/08/24 09:27 03/08/24 09:27 Iohexol 350 Mg/Ml 100 Ml Infus..Btl IV 03/08/24 09:28 85 ml ONCE ONE Administration Morphine Sulfate 2 mg 03/08/24 08:23 03/08/24 08:36 Morphine Sulfate 2 Mg/Ml Cartridge IVPUSH 03/08/24 08:24 2 mg ONCE ONE Administration Protocol Discharge Plan Discharge Clinical Impression: Pyelonephritis, Bronchitis Patient Disposition: Home, Self-Care Instructions: Acute Bronchitis (ED), Kidney Infection (ED) Additional Instructions: You have a kidney infection. Cefpodoxime as an antibiotic please take as prescribed until completion Your x-ray shows a small amount of fluid in your lungs, it is very important you continue to take your water pill. In addition prednisone will help with inflammation/bronchitis and your coughing > if you are a diabetic this will make your sugar elevated, please monitor close Yelena Rush for cough, take as needed If her symptoms persist or worsen, pain becomes unbearable, your persistent coughing up of blood, shortness of breath, worsening leg swelling return to the ED immediately Please close follow-up with her doctor as well as Cardiology Prescriptions: New cefpodoxime 200 mg tablet 200 mg PO BID 7 Days Qty: 14 0RF Rx Instructions: must administer with a meal/food prednisone 20 mg tablet 40 mg PO DAILY 5 Days Qty: 10 0RF benzonatate 100 mg capsule 100 mg PO TID PRN (Reason: cough) Qty: 14 0RF No Action fluticasone propionate [Flonase Allergy Relief] 50 mcg/actuation spray,suspension 1 spray intranasal DAILY 10 Days Qty: 150 0RF Rx Instructions: administer into each nostril acetaminophen [Tylenol] 325 mg tablet 650 mg PO Q6H PRN (Reason: pain) Qty: 40 0RF aspirin 81 mg tablet,delayed release (DR/EC) 81 mg PO DAILY Qty: 90 3RF atorvastatin 80 mg tablet 80 mg PO DAILY Qty: 90 3RF Jardiance 10 mg tablet 10 mg PO DAILY Qty: 30 6RF ibuprofen 800 mg tablet 800 mg PO Q8H PRN (Reason: pain) 30 Days Qty: 90 2RF cyclobenzaprine 10 mg tablet 10 mg PO BEDTIME Qty: 14 0RF (DME) blood-glucose meter [OneTouch Ultra2 Meter] [facility] See Rx Instructions .Route Qty: 1 0RF Rx Instructions: As directed (DME) OneTouch Ultra Test Strip See Rx Instructions .Route Qty: 100 2RF Rx Instructions: Use 1 test strip once a day (DME) lancets [OneTouch UltraSoft 2 Lancet] 30 gauge misc See Rx Instructions .Route Qty: 100 2RF Rx Instructions: Use 1 lancet once a day loratadine 10 mg tablet 10 mg PO DAILY 10 Days Qty: 10 0RF (DME) lancets [FreeStyle Lancets] 28 gauge misc See Rx Instructions .Route Qty: 100 3RF Rx Instructions: Use 1 lancet once a day metoprolol succinate 50 mg tablet extended release 24 hr 50 mg PO DAILY Qty: 90 3RF Entresto 49-51 mg tablet 1 tab PO BID Qty: 180 3RF hydrocortisone [Proctosol HC] 2.5 % cream with perineal applicator 1 appl [place] BID-QID PRN (Reason: hemorrhoids) Qty: 30 0RF sertraline 50 mg tablet 50 mg PO DAILY omeprazole 40 mg capsule,delayed release(DR/EC) 40 mg PO DAILY Qty: 90 3RF sennosides [Natural Senna Laxative] 8.6 mg tablet 17.2 mg PO BEDTIME Qty: 180 2RF olanzapine 10 mg tablet 10 mg PO BEDTIME Citrucel 500 mg tablet 500 mg PO DAILY Qty: 90 2RF Rx Instructions: take it with full glass of water furosemide 40 mg tablet 40 mg PO DAILY Qty: 90 3RF Referrals: [facility] [place] [facility] [Provider Group] Gina Davey MD [Primary Care Provider] - 5 days Print Language: Filipino
[2024-03-08 08:47] LABS: MANUAL DIFF FLAG NO
[2024-03-08 08:48] LABS: Basophils Absolute Auto 0.1 X10*3/uL (0.0-0.2); Basophils Percent Auto 0.6 % (0-2); Eosinophils Absolute Auto 0.1 X10*3/uL (0.0-0.4); Eosinophils Percent Auto 0.6 % (0-4); Hematocrit 41.7 % (42.0-52.0); Hemoglobin 14.3 g/dl (14.0-18.0); Imm Gran Abs Auto 0.02 X10*3/uL (0.00-0.03); Imm Gran Pct Auto 0.2 % (0.0-0.4); Lymphocytes Percent Auto 9.2 % (20-40); Mean Corpuscular HGB Conc 34.3 g/dl (31.0-36.0); Mean Corpuscular Hemoglobin 30.1 pg (27.0-33.0); Mean Corpuscular Volume 87.8 fL (80.0-98.0); Monocytes Absolute Auto 0.6 X10*3/uL (0.1-1.2); Monocytes Percent Auto 5.3 % (2-11); Neutrophils Absolute Auto 8.8 x10*3/uL (2.0-8.3); Neutrophils Percent Auto 84.1 % (45-73); Platelet Count 217 X10*3/uL (160-400); Red Blood Count 4.75 X10*6/uL (4.60-5.80); Red Cell Distribution Width 14.2 % (11.0-16.0); White Blood Count 10.4 X10*3/uL (4.8-10.8)
[2024-03-08 08:53] LABS: Prothrombin Time 12.7 SEC (11.1-13.3)
[2024-03-08 09:10] LABS: Alanine Aminotransferase 23 U/L (0-40); Alkaline Phosphatase 57 U/L (39-117); Anion Gap 11 (12-20); Aspartate Amino Transferase 22 U/L (5-37); Bilirubin Direct 0.2 mg/dL (0.0-0.5); Bilirubin Total 0.7 mg/dL (0.0-1.0); Blood Urea Nitrogen 23 mg/dL (9-16); Calcium 8.8 mg/dL (8.4-10.2); Carbon Dioxide 20 mmol/L (22-29); Chloride 112 mmol/L (96-108); Creatinine Clr Calc Pharmacy 70.6; Estimated Glomerular Filt Rate > 60; Glucose Random 138 mg/dL (60-115); Lipase 15 U/L (8-78); Magnesium 2.1 mg/dL (1.6-2.6); Potassium 3.8 mmol/L (3.3-5.1); Sodium 139 mmol/L (135-145); Total Protein 6.6 g/dL (6.5-8.0)
[2024-03-08 09:11] LABS: B Type Natriuretic Peptide 663 pg/mL (<100)
[2024-03-08 09:15] LABS: Appearance Urine Clear; Color Urine Yellow; Glucose Urine UA Negative (Negative); Leukocyte Esterase Urine Negative (Negative); Nitrite Urine Negative (Negative); PH 5.5 (5.0-9.0); Urine Blood Negative (Negative); Urine Ketones Negative (Negative); Urine Protein Negative (Neg-Trace)
[2024-03-08] MEDS: iohexoL 350 MG/ML 100 ML INFUS..BTL IV (09:27)
[2024-03-08 09:28] LABS: Influenza A PCR NEGATIVE (Negative); Influenza B PCR NEGATIVE (Negative); Resp Syncy Virus RNA Qual PCR NEGATIVE (Negative); SARS COV2 PCR INHOUSE NEGATIVE (Negative)
[2024-03-08] MEDS: Furosemide 40 MG/4 ML VIAL IVPUSH (10:35)
[2024-03-08] MEDS: cefTRIAXone sodium 1 GM in 0.9 % Sodium Chloride 50 ML IV (11:12)
== END 2024-03-08 12:06 | disposition home or self-care (01) ==
PROVIDERS: Physician Assistant; Emergency Provider Emergency Medicine; PCP Internal Medicine
DX: N10 Acute pyelonephritis (principal); J40 Bronchitis, not specified as acute or chronic; R10.32 Left lower quadrant pain; R60.0 Localized edema; Z03.818 Encounter for observation for suspected exposure to other biological agents ruled out; R05.9 Cough, unspecified; E11.9 Type 2 diabetes mellitus without complications; I10 Essential (primary) hypertension; E78.5 Hyperlipidemia, unspecified; I48.0 Paroxysmal atrial fibrillation; Z87.891 Personal history of nicotine dependence; Z79.82 Long term (current) use of aspirin; Z79.02 Long term (current) use of antithrombotics/antiplatelets; Z79.899 Other long term (current) drug therapy
CPT/HCPCS: 0241U; 71046; 74177; 80048; 80076; 81003; 83690; 83735; 83880; 85025; 85610; 93005; 96361; 96365; 96375; 99284; 99285; J0696; J1940; J2270; Q9967

== ENCOUNTER → 2024-03-08 08:23 | Outpatient (BNV) | payer OTHER, SELFPAY | PROVIDERS: Emergency Provider Emergency Medicine; PCP Internal Medicine; Visit Provider Internal Medicine | DX: I49.3 Ventricular premature depolarization (principal) | CPT/HCPCS: 93010 ==

== ENCOUNTER 2024-03-12 08:55 | Outpatient (AMB) | payer OTHER, SELFPAY ==
[2024-03-12 08:58] VITALS: BP 100/68; PULSE 50; O2SAT 97; BMI 38.4
--- NOTE | 2024-03-12 08:58 | A.OFFPC_ITS ---
Vital Signs 03/12/24 08:58 Height 5 ft 2 in Weight 210 lb BMI 38.4 BP 100/68 Blood Pressure Location Lt brachial Position Sitting Pulse 50 Pulse Source Pulse Oximeter Pulse Oximetry (%) 97 Oxygen Delivery Method Room Air Intake Visit Reasons: EDF [facility] Bronchitis Reporter Anchor Required: Yes Health Program Analyst: Not Required per policy Accompanied by: Self / Same As Patient Allergies No Known Allergies [No Known Allergies*] Allergy (Verified 03/08/24 07:47) Tobacco use date assessed: 09/11/23 Fall risk assessment: No Falls in past year Last assessed Fall Risk: 03/12/24 Dental Screening Dental Screen Date: 09/11/23 HPI HPI Comments History of Present Illness Details 63 y/o male patient who presents to the clinic today for EDF. He was seen at [facility] on 03[place]08[place]24 for Pyelonephritis and Bronchitis. He was discharged home the same day on Oral Abx. Today Pt reports feeling much better since the discharge. Denies cough, SOB, nausea, vomiting, or Diarrhea. He does endorse some mild Abdominal pain and right lower back. Denies Urinary symptoms. 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 pylori) GERD (gastroesophageal reflux disease) Breast pain Dyslipidemia Essential hypertension Obese Abdominal mass Insomnia Surgical History H/O abdominal surgery History of colonoscopy Family History Father No problems noted. Mother Kidney failure Social History Housing: Apartment Alcohol intake: current Alcohol intake frequency: a few times a month Alcohol type: beer Patient Tobacco Use Status: Former Tobacco user Tobacco use type: Cigarette e-Cigarette/Vaping Use: Never Used Second Hand Smoke Exposure: No service: No Current occupational status: retired Cognitive needs: No Hearing needs: No Vision needs: No Questionnaire Thrive Questionnaire Date Thrive assessed: 09/11/23 MIGUELINA-7 AMB Questionnaire MIGUELINA-7 Date MIGUELINA - 7 assessed: 09/11/23 Source: Developed by Drs. Elias Schilling, Barbie Teague, Flavio Calvin and colleagues, with an educational elroy from [employer]. Review of Systems Const All systems reviewed & are unremarkable except as noted in HPI and below Physical exam (Primary Care) Vital Signs: Last Vital Signs Pulse 50 03/12/24 08:58 BP 100/68 03/12/24 08:58 Pulse Ox 97 03/12/24 08:58 Oxygen Delivery Method Room Air 03/12/24 08:58 BMI result Body Mass Index 38.4 Tobacco/Smoking Status: Tobacco use Status Tobacco use date assessed 09/11/23 03/12/24 08:59 Patient Tobacco Use Status Former Tobacco user 03/12/24 08:59 Tobacco use type Cigarette 03/12/24 08:59 e-Cigarette/Vaping Use Never Used 03/12/24 08:59 Thrive Assessment: Date of Thrive Assessment Date Thrive assessed 09/11/23 03/12/24 08:59 Const General: comfortable and no acute distress Nutritional Appearance: obese Orientation/consciousness: patient oriented x3 Limitations: language barrier (Speaks minimal Danish, but able to understand and speak) Resp Effort & Inspection: normal respiratory effort, able to speak in complete sentences and no grunting Auscultation: clear to auscultation bilaterally, no crackles, no rales and no rhonchi Cardio Heart sounds: S1 normal heart sound present and S2 normal heart sound present GI Inspection: Yes Abdominal panniculus present Palpation (GI): Soft to palpation, not firm, nontender, no guarding and not rigid Auscultation: normal bowel sounds Rectal Exam - Male: Yes deferred Neuro General: patient oriented x3, gait normal and moves all extremities Psych Speech and movement: Normal speech and movement present Vital Signs: Last Vital Signs Pulse 50 03/12/24 08:58 BP 100/68 03/12/24 08:58 Pulse Ox 97 03/12/24 08:58 Oxygen Delivery Method Room Air 03/12/24 08:58 BMI result Body Mass Index 38.4 Const General: comfortable and no acute distress Nutritional Appearance: obese Orientation/consciousness: patient oriented x3 Limitations: language barrier (Speaks minimal Danish, but able to understand and speak) Resp Effort & Inspection: normal respiratory effort, able to speak in complete sentences and no grunting Auscultation: clear to auscultation bilaterally, no crackles, no rales and no rhonchi Cardio Heart sounds: S1 normal heart sound present and S2 normal heart sound present GI Inspection: Yes Abdominal panniculus present Palpation (GI): Soft to palpation, not firm, nontender, no guarding and not rigid Auscultation: normal bowel sounds Rectal Exam - Male: Yes deferred Neuro General: patient oriented x3, gait normal and moves all extremities Psych Speech and movement: Normal speech and movement present Results AMB Hemoglobin A1c AMB Hemoglobin A1c 5.7 % Last Edit by FE Pérez on 03/12/24 09:18 Results Reviewed Results Reviewed: Laboratory Last Values Hgb A1c (Clinic) 5.7 % (4.0-6.0) 03/12/24 09:00 Assessment and Plan Assessment & Plan (1) Diabetes mellitus: Code(s): E11.9 - Type 2 diabetes mellitus without complications Qualifiers: Diabetes mellitus complication status: without complication Diabetes mellitus chcf insulin use: without program scheduler use Diabetes mellitus type: type 2 Qualified Code(s): E11.9 - Type 2 diabetes mellitus without complications Plan: Continue F/U with PCP as scheduled on 03/25/24 No medication changes (2) Pyelonephritis: Code(s): N12 - Tubulo-interstitial nephritis, not specified as acute or chronic Plan: Continue Abx as scheduled F/U with Urology as scheduled on 05/06/24 (3) Bronchitis: Code(s): J40 - Bronchitis, not specified as acute or chronic Plan: Resolved. No further symptoms. (4) Chronic systolic heart failure: Code(s): I50.22 - Chronic systolic (congestive) heart failure Plan: F/U with Cardio as scheduled on 03/20/24 Orders: Orders AMB Hemoglobin A1c Today E11.9 - Type 2 diabetes mellitus without complications Coding Level of Care Code Est Pt Level 4 (67780) Diagnoses Type 2 diabetes mellitus without complication, without long-term current use of insulin E11.9 Diabetes mellitus complication status: without complication Diabetes mellitus chcf insulin use: without program scheduler use Diabetes mellitus type: type 2 Pyelonephritis N12 Bronchitis J40 Chronic systolic heart failure I50.22 Comment 20 minutes reviewing hospital notes.
== END 2024-03-12 09:22 | disposition home or self-care (01) ==
PROVIDERS: PCP Internal Medicine; Visit Provider Nurse Practitioner Family
DX: E11.9 Type 2 diabetes mellitus without complications (principal); N12 Tubulo-interstitial nephritis, not specified as acute or chronic; J40 Bronchitis, not specified as acute or chronic; I50.22 Chronic systolic (congestive) heart failure
CPT/HCPCS: 83036; 99214

== ENCOUNTER 2024-03-19 15:32 | Inpatient (IN) | payer OTHER, SELFPAY ==
--- NOTE | ~2024-03-19 | XR_ITS ---
EXAMINATION: XR CHEST CLINICAL INFORMATION: Cough. COMPARISON: Chest x-ray February 07, 2024, May 19, 2019. CT of chest May 19, 2019 TECHNIQUE: 2 views of the chest were obtained. FINDINGS: Heart size enlarged. Central pulmonary vessels are prominent with increased lung markings, interstitial edema. No overt pulmonary edema. No focal consolidation. No pleural effusion or pneumothorax. XR/XR chest 2V IMPRESSION: Cardiomegaly with pulmonary vascular congestion. No overt pulmonary edema. No focal consolidation.
[2024-03-19 15:44] VITALS: BP 112/80; PULSE 121; RESP 26; TEMP 36.8; O2SAT 94; BMI 39.1
--- NOTE | 2024-03-19 15:44 | ED.GENADULT ---
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 He reports approximately 1 week ago he was seen in the emergency department and diagnosed with bronchitis. He states on Monday, 5 days ago, he finished his course of antibiotics and steroids. He has continued to experience a cough intermittently productive. The following day he began to feel more short of breath again, which became notably worse yesterday. He reports that last night he was unable to lie flat without having severe shortness of breath and feeling as though he can not breathe. His symptoms progressed today he has been feeling increasingly more weak, intermittent dizziness, and feeling like he is going to pass out. He states ?sometimes things go black? but he denies any nocturnal episodes of syncope or collapse. He has associated nausea but no vomiting. He has been experiencing pain primarily in his substernal region that is exacerbated with cough or deep breathing but is also felt pain to the left and right chest. He denies any pedal edema. He denies fevers or chills. He states he has been compliant with his medications. Has an appointment with Cardiology tomorrow for a ?pacemaker because the heart is too slow?. Related Data Home Medications ?Medication ?Instructions ?Recorded ?Confirmed sertraline 50 mg tablet 50 mg PO DAILY 06/14/22 03/19/24 fluticasone propionate 50 1 spray intranasal DAILY PRN 03/19/24 03/19/24 mcg/actuation nasal Allergy Symptoms spray,suspension (Flonase Allergy Relief) ibuprofen 800 mg tablet 800 mg PO DAILY sanabria 03/19/24 03/19/24 metoprolol succinate 50 mg 100 mg PO DAILY 03/19/24 03/19/24 tablet,extended release 24 hr omeprazole 40 mg capsule,delayed 40 mg PO DAILY@0630 03/19/24 03/19/24 release trazodone 100 mg tablet 200 mg PO BEDTIME 03/19/24 03/19/24 Previous Rx's ?Medication ?Instructions ?Recorded loratadine 10 mg tablet 10 mg PO DAILY 10 days #10 tabs 06/16/21 cyclobenzaprine 10 mg tablet 10 mg PO BEDTIME #14 tabs 06/01/22 lancets 28 gauge (FreeStyle #100 ea 01/17/23 Lancets) furosemide 40 mg tablet 40 mg PO DAILY #90 tabs 04/20/23 blood sugar diagnostic (OneTouch #100 ea 05/09/23 Ultra Test strips) blood-glucose meter (OneTouch #1 ea 05/09/23 Ultra2 Meter) lancets 30 gauge (OneTouch #100 ea 05/09/23 UltraSoft 2 Lancet) atorvastatin 80 mg tablet 80 mg PO DAILY #90 tabs 09/11/23 sacubitril 49 mg-valsartan 51 mg 1 tab PO BID #180 tabs 09/11/23 tablet (Entresto) empagliflozin 10 mg tablet 10 mg PO DAILY #30 tabs 10/16/23 (Jardiance) Allergies Allergy/AdvReac Type Severity Reaction Status Date / Time No Known Allergies Allergy Verified 03/19/24 15:45 [No Known Allergies*] Review of Systems Review of Systems: Yes all other systems are reviewed and are negative [facility] Past Medical History Attestation statement: The following information was validated with the patient. 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 pylori) GERD (gastroesophageal reflux disease) Breast pain Dyslipidemia Essential hypertension Obese Abdominal mass Insomnia Surgical History H/O abdominal surgery History of colonoscopy Family History Family History Father No problems noted. Mother Kidney failure Social History Social History Housing: Apartment Alcohol intake: current Alcohol intake frequency: a few times a month Alcohol type: beer Patient Tobacco Use Status: Former Tobacco user Tobacco use type: Cigarette e-Cigarette/Vaping Use: Never Used Second Hand Smoke Exposure: No service: No Current occupational status: retired Cognitive needs: No Hearing needs: No Vision needs: No Physical Exam ED Vital Signs: Vital Signs - 24 hr 03/19/24 15:44 03/19/24 16:22 03/19/24 18:00 Temperature 98.2 F 97.6 F 98.5 F Pulse Rate 121 H 111 H 115 H Respiratory Rate 26 H 24 H 25 H Blood Pressure 112/80 108/76 122/68 Pulse Oximetry 94 95 94 Oxygen Delivery Method Room Air Room Air Room Air 03/19/24 18:07 Temperature 98.3 F Pulse Rate 100 Respiratory Rate 19 Blood Pressure 112/85 Pulse Oximetry 94 Oxygen Delivery Method Room Air BMI result Body Mass Index 39.1 Appearance: Alert.?Oriented to person, place and time. No acute distress.?Normal affect. Eyes: Pupils equal, round and reactive to light.? ENT: Pharynx normal.?? Neck: Normal inspection.? Neck supple.?? CVS: Heart sounds normal. Irregularly irregular heart rate and rhythm.? Pulses normal.?? Respiratory: No respiratory distress.? Lung sounds clear to auscultation bilaterally?? Abdomen: Soft and non-tender. Normoactive bowel sounds. Skin: Skin warm and dry.? Normal skin color.? Normal skin turgor.?? Extremities: 1+ pitting bilateral lower extremity edema.? No calf ttp? Neuro: Moves all extremities spontaneously. Sensation intact bilaterally. CN II-XII intact. No focal neuro deficits. Ambulates with normal steady gait. Course Course Course Narrative: This is a Rapid Medical Examination (RME) performed by Lakesha Miranda PA-C in triage. Full HPI, ROS, assessment and treatment plan per primary provider in the Main ED. 63 yo male hx of HTN, HDL, DM, obesity, nonischemic cardiomyopathy, systolic HF (has appointment w/ lory for pacemaker), etoh use here for eval of difficulty breathing which began last night. worse with exertion. admits to assoc cough w/ clear sputum production, chest pain and NEGRON. no recent travel or long car rides. + actively coughing. irregularly irregular rhythm. 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 Patient being brought back to ED bed. Plan: labs, ekg, cxr ordered Reevaluation(s) Reevaluation #1: CBC is without leukocytosis anemia or thrombocytopenia. No electrolyte derangement. No ANTONIA. BNP of 602, appears consistent with prior level 10 days ago slightly improved, chronic elevation CXR with pulmonary vascular congestion no overt edema. He has no hypoxia, room air O2 saturation 94%, although he is tachypneic with minimal exertion will provide a dose of furosemide. Additional metoprolol 2.5 mg as he remains in AFib RVR. CHADS-VASc score : 4 initiated Eliquis. Consulted with Cardiology spoke with Dr. Osuna who agrees with plan of care. Inpatient admission for symptomatic heart failure exacerbation precipitated by atrial fibrillation, admitted to hospitalist service spoke with Dr. Femi Christiansen. Medications Administered Generic Name Dose Route Start Last Admin Trade Name Freq PRN Reason Stop Dose Admin Doxycycline Hyclate 100 mg/ 250 mls @ 166.67 mls/hr 03/19/24 19:55 03/19/24 22:14 Sodium Chloride IV Infused Q12H RAYMOND Infusion Insulin Human Lispro 0 unit 03/19/24 21:00 03/19/24 22:19 Insulin Lispro 100 Unit/Ml 3 Ml Vial SUBCUT Not Given QIDACHS [facility] Protocol Melatonin 6 mg 03/19/24 19:49 03/19/24 22:53 Melatonin 3 Mg Tablet PO 6 mg BEDTIME PRN Administration Insomnia Sodium Chloride 3 ml 03/20/24 00:00 03/20/24 01:14 0.9 % Sodium Chloride Flush 3 Ml Syringe IVFLUSH 3 ml QSHIFT RAYMOND Administration Discontinued Medications Generic Name Dose Route Start Last Admin Trade Name Freq PRN Reason Stop Dose Admin Apixaban 5 mg 03/19/24 18:45 03/19/24 19:23 Apixaban 5 Mg Tablet PO 03/19/24 18:46 5 mg ONCE ONE Administration Furosemide 40 mg 03/19/24 18:56 03/19/24 19:23 Furosemide 40 Mg/4 Ml Vial IVPUSH 03/19/24 18:57 40 mg ONCE ONE Administration Protocol Guaifenesin/Dextromethorphan 2 tab 03/19/24 19:51 03/19/24 20:22 Guaifenesin Dm 600/30 1 Tab Tab.Er.12h PO 03/19/24 19:52 2 tab BID STA Administration Methylprednisolone Sodium Succinate 80 mg 03/19/24 19:51 03/19/24 20:21 Methylprednisolone Sod Succ 125 Mg/2 Ml Vial IVPUSH 03/19/24 19:52 80 mg ONCE STA Administration Metoprolol Tartrate 2.5 mg 03/19/24 17:10 03/19/24 17:43 Metoprolol Tartrate 5 Mg/5 Ml Vial IVPUSH 03/19/24 17:11 2.5 mg ONCE ONE Administration Protocol Metoprolol Tartrate 2.5 mg 03/19/24 18:25 03/19/24 19:23 Metoprolol Tartrate 5 Mg/5 Ml Vial IVPUSH 03/19/24 18:26 2.5 mg ONCE ONE Administration Protocol Metoprolol Tartrate 75 mg 03/19/24 19:52 03/19/24 20:21 Metoprolol Tartrate 25 Mg Tablet PO 03/19/24 19:53 75 mg ONCE STA Administration Protocol Medical Decision Making Medical Decision Making [facility] Narrative: Patient is a 63-year-old male with past medical history of hypertension, hyperlipidemia, diabetes, obesity, nonischemic cardiomyopathy, systolic heart failure, GERD who presents to the emergency department for evaluation of shortness of breath as per HPI he was evaluated in this emergency department 10 days ago on 03/08/2024, diagnosed with bronchitis and pyelonephritis, treated with cefpodoxime 7 day course in addition to prednisone and benzonatate. In addition he was evaluated by Cardiology earlier this month, most recent echocardiogram in December of 2023 feeling wall motion abnormalities concerning for nonischemic cardiomyopathy and he has been referred to EP for defibrillator, current management with furosemide, metoprolol, Entresto, Jardiance, cardiac catheterization in 2019 with no significant obstructive CAD. On review of [facility] EP note, an EKG from 02/28/2020 for head revealed atrial fibrillation awaiting MCT evaluate for burden of AFib On arrival to the ED he was noted to have an irregular pulse, EKG revealing atrial fibrillation with RVR, patient denies any history of such, on review of records an EKG obtained in May of 2019 revealed similarly atrial fibrillation with RVR. Rate is variable up to the 120s, he takes metoprolol succinate at home which he states he was compliant with today, blood pressure on the lower side of normal, will start with a low dose of metoprolol 2.5 mg IV in addition to obtaining serum labs and CXR Differential Diagnosis Differential Diagnoses: The differential diagnosis associated with the presentation includes (Arrhythmia, CHF exacerbation, ACS) Admission/Observation Consideration of admission/observation: Escalation of care including admission/observation considered Lab Data MDM Lab Attestation statement: I reviewed the patient's lab results. 03/19/24 17:22 03/19/24 17:22 Labs: Lab Results 03/19/24 03/19/24 Range/Units 17:21 17:22 WBC 9.1 (4.8-10.8) X10*3/uL RBC 4.89 (4.60-5.80) X10*6/uL Hgb 14.8 (14.0-18.0) g/dl Hct 43.3 (42.0-52.0) % MCV 88.5 (80.0-98.0) fL MCH 30.3 (27.0-33.0) pg MCHC 34.2 (31.0-36.0) g/dl RDW 13.7 (11.0-16.0) % Plt Count 232 (160-400) X10*3/uL MPV 11.4 (9.4-12.4) fL Immature Gran % (Auto) 0.2 (0.0-0.4) % Neut % (Auto) 72.7 (45-73) % Lymph % (Auto) 16.1 L (20-40) % [place] % (Auto) 9.0 (2-11) % Eos % (Auto) 1.0 (0-4) % Baso % (Auto) 1.0 (0-2) % Lymph # (Auto) 1.5 (1.2-4.9) X10*3/uL [place] # (Auto) 0.8 (0.1-1.2) X10*3/uL Eos # (Auto) 0.1 (0.0-0.4) X10*3/uL Baso # (Auto) 0.1 (0.0-0.2) X10*3/uL Abs Immat Gran (auto) 0.02 (0.00-0.03) X10*3/uL Absolute Neuts (auto) 6.6 (2.0-8.3) x10*3/uL Absolute Nucleated RBC 0.000 (0.0-0.012) X10*3/uL Nucleated RBC % (auto) 0.0 (0.0-0.2) /100WBC PT 13.7 H (11.1-13.3) SEC INR 1.1 (0.9-1.1) Sodium 143 (135-145) mmol/L Potassium 4.7 D (3.3-5.1) mmol/L Chloride 105 (96-108) mmol/L Carbon Dioxide 28 (22-29) mmol/L Anion Gap 15 (12-20) BUN 19 H (9-16) mg/dL Creatinine 1.23 (0.5-1.4) mg/dL Estim Creat Clear Calc 60.6 Estimated GFR 59 Random Glucose 99 (60-115) mg/dL Calcium 9.4 D (8.4-10.2) mg/dL Magnesium 2.1 (1.6-2.6) mg/dL Total Bilirubin 0.6 (0.0-1.0) mg/dL AST 24 (5-37) U/L ALT 26 (0-40) U/L Alkaline Phosphatase 69 (39-117) U/L Troponin I High Sens 34.5 (<3.5-35.0) ng/L B-Natriuretic Peptide 602 H (<100) pg/mL Total Protein 6.9 (6.5-8.0) g/dL Albumin 4.0 (3.5-5.0) g/dL Lipase 14 (8-78) U/L Independent Interpretation I performed an independent interpretation of an: EKG and Plain X-Ray (No infiltrate or consolidation, no pulmonary edema) Interpretation: Rate: 126 Rhythm:? AFib RVR with PVC Normal QRS complex.?? ST T wave :??No ST elevation, no ST depression qTC: 504 prior studies:? 03/08/2024 The study has been interpreted contemporaneously by me. Radiology Impression Discussion of test interpretation with radiology: I have reviewed the radiologist's reading. Radiologist Impression: XR/XR chest 2V IMPRESSION: Cardiomegaly with pulmonary vascular congestion. No overt pulmonary edema. No focal consolidation. Independent Historian Clinical information obtained from an independent historian. History obtained from or confirmed by: Spouse External Record Review External record reviewed: Outpatient record Critical Care Time Critical Care Time Critical Care Time: Yes Total Critical Care Time: 45 Attestation: I personally attest to this critical care time spent taking care of the patient exclusive of all other billable procedures was approximately 45 minutes including initial evaluation of patient, ordering tests, x-ray interpretation, EKG interpretation, AFib RVR with intravenous rate control meds re-evaluation, medical consultation, documentation, re-evaluation. Discharge Plan Discharge Clinical Impression: Atrial fibrillation Patient Disposition: Admitted As Inpatient Interventions: Admission Worksheet (ED) Last Done: 03/20/24 00:06 Discharge Date/Time: 03/20/24 00:52
--- NOTE | 2024-03-19 15:45 | ECG_ITS ---
Test Reason : chest pain Blood Pressure : / mmHG Vent. Rate : 126 BPM Atrial Rate : 000 BPM P-R Int : 000 ms QRS Dur : 126 ms QT Int : 348 ms P-R-T Axes : 000 -33 140 degrees QTc Int : 504 ms Atrial fibrillation with rapid ventricular response with premature ventricular or aberrantly conducted complexes Left axis deviation Non-specific intra-ventricular conduction block Minimal voltage criteria for LVH, may be normal variant ( [place] product ) Nonspecific T wave abnormality Abnormal ECG When compared with ECG of 08-MAR-2024 08:38, Atrial fibrillation has replaced Sinus rhythm Vent. rate has increased BY 66 BPM Nonspecific T wave abnormality now evident in Lateral leads Referred By: Bridgette Miranda Electronically Signed By:STEH GAGE MD
[2024-03-19 16:22] VITALS: BP 108/76; PULSE 111; RESP 24; TEMP 36.4; O2SAT 95
[2024-03-19 17:26] LABS: MANUAL DIFF FLAG NO
[2024-03-19 17:28] LABS: Basophils Absolute Auto 0.1 X10*3/uL (0.0-0.2); Eosinophils Absolute Auto 0.1 X10*3/uL (0.0-0.4); Hematocrit 43.3 % (42.0-52.0); Hemoglobin 14.8 g/dl (14.0-18.0); Imm Gran Abs Auto 0.02 X10*3/uL (0.00-0.03); Imm Gran Pct Auto 0.2 % (0.0-0.4); Lymphocytes Absolute Auto 1.5 X10*3/uL (1.2-4.9); Lymphocytes Percent Auto 16.1 % (20-40); Mean Corpuscular HGB Conc 34.2 g/dl (31.0-36.0); Mean Corpuscular Hemoglobin 30.3 pg (27.0-33.0); Mean Corpuscular Volume 88.5 fL (80.0-98.0); Mean Platelet Volume 11.4 fL (9.4-12.4); Monocytes Absolute Auto 0.8 X10*3/uL (0.1-1.2); Neutrophils Absolute Auto 6.6 x10*3/uL (2.0-8.3); Neutrophils Percent Auto 72.7 % (45-73); Platelet Count 232 X10*3/uL (160-400); Red Blood Count 4.89 X10*6/uL (4.60-5.80); Red Cell Distribution Width 13.7 % (11.0-16.0); White Blood Count 9.1 X10*3/uL (4.8-10.8)
[2024-03-19 17:34] LABS: INTERNATIONAL NORM RATIO 1.1 (0.9-1.1); Prothrombin Time 13.7 SEC (11.1-13.3)
[2024-03-19] MEDS: Metoprolol Tartrate 5 MG/5 ML VIAL 2.5 MG IVPUSH ×2 (17:43→19:23)
[2024-03-19 17:48] LABS: Alanine Aminotransferase 26 U/L (0-40); Alkaline Phosphatase 69 U/L (39-117); Anion Gap 15 (12-20); Aspartate Amino Transferase 24 U/L (5-37); Bilirubin Total 0.6 mg/dL (0.0-1.0); Blood Urea Nitrogen 19 mg/dL (9-16); Calcium 9.4 mg/dL (8.4-10.2); Carbon Dioxide 28 mmol/L (22-29); Chloride 105 mmol/L (96-108); Creatinine Clr Calc Pharmacy 60.6; Estimated Glomerular Filt Rate 59; Glucose Random 99 mg/dL (60-115); Lipase 14 U/L (8-78); Magnesium 2.1 mg/dL (1.6-2.6); Potassium 4.7 mmol/L (3.3-5.1); Sodium 143 mmol/L (135-145); Total Protein 6.9 g/dL (6.5-8.0)
[2024-03-19 17:52] LABS: B Type Natriuretic Peptide 602 pg/mL (<100)
[2024-03-19 18:00] VITALS: BP 122/68; PULSE 115; RESP 25; TEMP 36.9; O2SAT 94
[2024-03-19 18:07] VITALS: BP 112/85; PULSE 100; RESP 19; TEMP 36.8; O2SAT 94
[2024-03-19 18:50] LABS: Troponin-I High Sensitivity 34.5 ng/L (<3.5-35.0)
--- NOTE | 2024-03-19 18:51 | MHC.EDTECH ---
This tech checked t vital signs, pt want to be in upright position, call villatoro within reach.
[2024-03-19] MEDS: Furosemide 40 MG/4 ML VIAL IVPUSH (19:23)
[2024-03-19] MEDS: Apixaban 5 MG TABLET PO (19:23)
--- NOTE | 2024-03-19 20:01 | PM.IMHP ---
History of Present Illness Date of Service: 03/19/24 Attending physician on admission: Rex Christiansen Chief Complaint: Shortness of breath Royal Glover is a 63 years old man with past medical history significant for HFrEF (echo Sep 2022 EF 20-25 %), atrial fibrillation ??on Eliquis, type 2 diabetes mellitus on Jardiance, hyperlipidemia, GERD and essential hypertension presents to the emergency department complaining worsening shortness of breath associated with productive cough of clear sputum over the last couple of days. Shortness of breath worse with exertion and upon laying flat in bed. He does have chest tightness. Denies wheezing chills. Denies headache, sore throat, dizziness, palpitations or leg swelling. He denied any acute gastrointestinal or genitourinary symptoms. About 10 days ago the patient was in the emergency department for similar symptoms was considered to have bronchitis for which he completed a course of prednisone and cepodoxime. He denied tobacco smoking, vaping, alcohol abuse or illicit drug use. February 28, 2024 - evaluated by j2ee consultant: Consider patient is not a candidate for TIP INSERTER however patient is a candidate for primary prevention ICD. Patient will be evaluated for atrial fibrillation burden and whether he has tachycardia induced cardiomyopathy before making a decision on ICD. In the ED, he was found to have tachycardia consistent with rapid atrial fibrillation. Other vital signs are normal. Blood work showed normal CBC. There are no electrolyte imbalances. BNP 602 which is similar to prior from last month. CXR showed pulmonary vascular congestion but no overt pulmonary edema or focal consolidations. He has a showed fibrillation with rapid ventricular response heart rate, 126 beats per minutes, intermittent color conduction block and PVCs. ED tx: Metoprolol 5 mg IV, Eliquis 5 mg PO and Lasix 40 mg IV. Review of Systems Review of Systems: All 12 systems were reviewed and normal except as noted in HPI. 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 pylori) GERD (gastroesophageal reflux disease) Breast pain Dyslipidemia Essential hypertension Obese Abdominal mass Insomnia Family History Father No problems noted. Mother Kidney failure Surgical History H/O abdominal surgery History of colonoscopy Social History Housing: Apartment Alcohol intake: current Alcohol intake frequency: a few times a month Alcohol type: beer Patient Tobacco Use Status: Former Tobacco user Tobacco use type: Cigarette Smoked in Last 30 Days: No e-Cigarette/Vaping Use: Never Used Second Hand Smoke Exposure: No Advance Directives: No Advance Directives Information Provided: Yes Do you have a plan to hurt others: No Plan service: No Current occupational status: retired Cognitive needs: No Hearing needs: No Vision needs: No Meds Allergies Allergy/AdvReac Type Severity Reaction Status Date / Time No Known Allergies Allergy Verified 03/19/24 15:45 [No Known Allergies*] Active Medications: Current Medications Acetaminophen (Acetaminophen 325 Mg Tablet) 975 mg PO Q6H PRN PRN Reason: Pain, Mild (Pain Scale 1-3), fever or headache Calcium Carbonate (Calcium Carbonate 750 Mg Tab.Chew) 750 mg PO Q4H PRN PRN Reason: Heartburn Doxycycline Hyclate 100 mg/ (Sodium Chloride) 250 mls @ 166.67 mls/hr IV Q12H RAYMOND Melatonin (Melatonin 3 Mg Tablet) 6 mg PO BEDTIME PRN PRN Reason: Insomnia Sodium Chloride (0.9 % Sodium Chloride Flush 3 Ml Syringe) 3 ml IVFLUSH QSHIFT RAYMOND Home Medications ?Medication ?Instructions ?Recorded ?Confirmed ?Last Taken ?Type olanzapine 10 mg tablet 10 mg PO BEDTIME 06/14/21 02/12/24 Unknown History sertraline 50 mg tablet 50 mg PO DAILY 06/14/22 02/12/24 Unknown History trazodone 100 mg tablet 200 mg PO BEDTIME 03/19/24 Unknown History Physical Exam Vital Signs and Narrative: Vital Signs: Last Vital Signs Temp 98.3 F 03/19/24 18:07 Pulse 100 03/19/24 18:07 Resp 19 03/19/24 18:07 BP 112/85 03/19/24 18:07 Pulse Ox 94 03/19/24 18:07 O2 Del Method Room Air 03/19/24 18:07 BMI result Body Mass Index 39.1 Constitutional - Awake and Alert, No apparent distress. Constantly coughing. Obese. Pleasant. Cooperative. HEENt - PERRL, EOMI Hear - Tachycardia, irregular rhythm. No murmur. Lungs - Normal lung expansion, Normal respiratory effort, No respiratory distress. Tachypnea. Bilateral rhonchi, no crackles or wheezing. Abdomen - NT / ND; +BS; No rebound or guarding Extremities - no calf tenderness bilaterally, no swelling Musculoskeletal - Normal inspection, normal ROM Skin - Warm/Dry Neurological - Alert & oriented x3. No focal weakness. Normal speech. Psychological - Appropriate affect Results Labs 03/19/24 17:22 03/19/24 17:22 Labs: Laboratory Results - last 24 hr 03/19/24 03/19/24 17:21 17:22 MCV 88.5 MCH 30.3 MCHC 34.2 RDW 13.7 Plt Count 232 MPV 11.4 Immature Gran % (Auto) 0.2 Neut % (Auto) 72.7 Lymph % (Auto) 16.1 L [place] % (Auto) 9.0 Eos % (Auto) 1.0 Baso % (Auto) 1.0 Lymph # (Auto) 1.5 [place] # (Auto) 0.8 Eos # (Auto) 0.1 Baso # (Auto) 0.1 Abs Immat Gran (auto) 0.02 Absolute Neuts (auto) 6.6 Absolute Nucleated RBC 0.000 Nucleated RBC % (auto) 0.0 PT 13.7 H INR 1.1 Anion Gap 15 Estim Creat Clear Calc 60.6 Estimated GFR 59 Random Glucose 99 Calcium 9.4 D Magnesium 2.1 Total Bilirubin 0.6 AST 24 ALT 26 Alkaline Phosphatase 69 Troponin I High Sens 34.5 B-Natriuretic Peptide 602 H Total Protein 6.9 Albumin 4.0 Lipase 14 Imaging Radiologist's Impressions: Impressions Chest X-Ray 03/19/24 16:13 IMPRESSION: Cardiomegaly with pulmonary vascular congestion. No overt pulmonary edema. No focal consolidation. 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 Admit to hospitalist service. Telemetry. Pulse oximetry. Supplemental oxygen as needed. Continue Lasix 40 mg IV twice daily. Solu-Medrol 80 mg IV x1. Continue Entresto. Cardiology consult. Rapid atrial fibrillation. Continue metoprolol. Start Eliquis 5 mg PO bid. Hyperlipidemia. Continue statin Type 2 diabetes mellitus. BG before meals at bedtime. Diabetic diet. Continue Jardiance. Insulin sliding scale. Essential hypertension. Continue metoprolol. Obesity. BMI 39.1 kg/m2. Weight loss. DVT prophylaxis: On Eliquis Code status: Full Patient will need hospitalization for at least 2 midnights for acute on chronic systolic congestive heart failure treatment with IV diuretics, supplemental oxygen as needed and evaluation by subspecialty. Quality Stroke Does the patient have a stroke diagnosis?: No VTE Prior VTE?: No VTE Risk Level:: Medical - moderate - high VTE Device Contraindication: Treatment Not Indicated VTE Drug Contraindication: N/A - Med Ordered
[2024-03-19] MEDS: methylPREDNISolone Sod Succ 125 MG/2 ML VIAL 80 MG IVPUSH (20:21)
[2024-03-19] MEDS: Metoprolol Tartrate 25 MG TABLET 75 MG PO (20:21)
[2024-03-19] MEDS: guaiFENesin DM 600/30 1 TAB TAB.ER.12H 2 TAB PO (20:22)
[2024-03-19] MEDS: Doxycycline Hyclate 100 MG in 0.9 % Sodium Chloride 250 ML 166.67 MG IV (20:22)
[2024-03-19 20:23] VITALS: BP 127/81; PULSE 114; RESP 14; TEMP 36.4; O2SAT 97
--- NOTE | 2024-03-19 20:59 | PHA.MEDREC ---
Addendum entered by Susan Edmondson [facility] 03/19/24 21:58: Reviewed by [facility] Original Note: Pharmacy Consult ? Medication Reconciliation Pharmacy has completed the medication reconciliation. 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 when going down the list patient states he is no longer taking Acetaminophen 650 mg Q6H, Aspirin 81 mg daily, Benzonatate 100 mg tid, Cefpododxime 200 mg bid, Furosamide 40 mg daily, Hydrocortisone 2.5% cram, Olanzapine 10 mg at bedtime, prendisone 40 mg daily, and Senna 17.2 at bedtime. Patent states he is on Cyclobenzaprine 10 mg at bedtime, however there is no claim for, and Empagliflozin 10 mg, last fill 3--24 x30 days, Entresto 49-51 mg bid , however last fill date 09-11-24 x30 days.
[2024-03-19 21:39] LABS: Glucose, Whole Blood 118 mg/dL (60-115)
--- NOTE | 2024-03-19 22:46 | MHC.EDTECH ---
Ambulated pt to the bathroom, call villatoro within reach.
[2024-03-19] MEDS: Melatonin 3 MG TABLET 6 MG PO (22:53)
[2024-03-20] VITALS (8 sets, daily range): BP systolic 99–117; BP diastolic 57–82; PULSE 82–102; RESP 18–28; TEMP 36.1–37; O2SAT 91–98; BMI 38.5
[2024-03-20] MEDS: 0.9 % Sodium Chloride Flush 3 ML SYRINGE IVFLUSH ×4 (01:14→21:42)
[2024-03-20 06:34] LABS: Anion Gap 15 (12-20); Blood Urea Nitrogen 25 mg/dL (9-16); Calcium 9.3 mg/dL (8.4-10.2); Carbon Dioxide 21 mmol/L (22-29); Chloride 108 mmol/L (96-108); Creatinine Clr Calc Pharmacy 67.1; Estimated Glomerular Filt Rate > 60; Glucose Random 172 mg/dL (60-115); Magnesium 1.9 mg/dL (1.6-2.6); Potassium 4.2 mmol/L (3.3-5.1); Sodium 140 mmol/L (135-145)
[2024-03-20 06:43] LABS: Basophils Percent Auto 0.3 % (0-2); Hematocrit 43.6 % (42.0-52.0); Hemoglobin 14.8 g/dl (14.0-18.0); Imm Gran Abs Auto 0.08 X10*3/uL (0.00-0.03); Imm Gran Pct Auto 0.8 % (0.0-0.4); Lymphocytes Absolute Auto 0.7 X10*3/uL (1.2-4.9); Lymphocytes Percent Auto 7.5 % (20-40); MANUAL DIFF FLAG SCAN; Mean Corpuscular HGB Conc 33.9 g/dl (31.0-36.0); Mean Corpuscular Hemoglobin 29.7 pg (27.0-33.0); Mean Corpuscular Volume 87.4 fL (80.0-98.0); Mean Platelet Volume 12.4 fL (9.4-12.4); Monocytes Absolute Auto 0.1 X10*3/uL (0.1-1.2); Monocytes Percent Auto 1.2 % (2-11); Neutrophils Absolute Auto 8.6 x10*3/uL (2.0-8.3); Neutrophils Percent Auto 90.2 % (45-73); Platelet Count 229 X10*3/uL (160-400); Red Blood Count 4.99 X10*6/uL (4.60-5.80); Red Cell Distribution Width 13.8 % (11.0-16.0); SCAN SMEAR FLAG 1; White Blood Count 9.5 X10*3/uL (4.8-10.8)
[2024-03-20 07:05] LABS: Glucose, Whole Blood 148 mg/dL (60-115)
[2024-03-20 08:10] LABS: SLIDE REVIEW VERIFIED
[2024-03-20] MEDS: Apixaban 5 MG TABLET PO ×2 (08:16→21:38)
[2024-03-20] MEDS: Furosemide 40 MG/4 ML VIAL IVPUSH (08:18)
[2024-03-20] MEDS: Doxycycline Hyclate 100 MG in 0.9 % Sodium Chloride 250 ML 166.67 MG IV (08:26)
[2024-03-20] MEDS: Empagliflozin 10 MG TABLET PO (08:33)
[2024-03-20] MEDS: Loratadine 10 MG TABLET PO (08:33)
[2024-03-20] MEDS: Sertraline HCL 50 MG TABLET PO (08:33)
[2024-03-20] MEDS: Atorvastatin Calcium 80 MG TABLET PO (08:33)
[2024-03-20] MEDS: Metoprolol Succinate ER 100 MG TAB.ER.24H PO (08:33)
--- NOTE | 2024-03-20 08:48 | MHC.CM.PN ---
CM met with Patient and his Girlfriend/Carrie at bedside, with the assist of a [facility] [place] Work[place] and addressed IMM with Patient(original was given to Patient and a copy has been placed on the chart). Patient lives alone in an apartment and he uses a cane @ tines to assist with mobility. Home/self care is the goal and CM has initiated and will follow for dc planning. PCP is Dr. Gina Daigle and Patient declined to complete a HCP.
[2024-03-20 10:56] LABS: Glucose, Whole Blood 158 mg/dL (60-115)
--- NOTE | 2024-03-20 11:48 | P.CONCA_ITS ---
History of Present Illness History of Present Illness Date of Service: 03/20/24 Requesting physician: Dilma Kim Consult reason: atrial fibrillation and congestive heart failure Chief complaint: acute chronic CHF Narrative: I was consulted to see Royal for management of congestive heart failure and newly detected atrial fibrillation. 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 Although sleep apnea has never been tested. 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 He said he was here about 10 days ago when he was having some pain and was having difficulty breathing abdominal distension fluid at that point time he was diuresed and subsequently discharged home. He then came to the hospital yesterday with sudden-onset shortness of breath and not able to breathe. Today he said he feels better since IV diuresis. However he was noted to be in atrial fibrillation which is new onset for him. EKG 10 days ago showed normal sinus rhythm. EKG yesterday shows atrial fibrillation with rapid ventricular response. Remains in atrial fibrillation. Hemodynamically stable. Has been taking all his medications as per the . Has also been staying off alcohol. does say that he snores a lot and also stops breathing at nighttime. Review of Systems 2 Constitutional: Constitutional: Reports no additional constitutional complaints Eyes: Eyes: Reports no additional eye complaints Cardiovascular: Cardiovascular: Reports chest pain at rest, Reports rapid heart rate, Denies lightheadedness, Denies Loss of Consciousness and Reports dyspnea Respiratory: Respiratory: Reports cough and Reports dyspnea Gastrointestinal: Gastrointestinal: Reports no additional gastrointestinal complaints Integumentary/Breasts: Skin/Breast: Reports system reviewed and no additional complaints, except as docu Neurologic: Reports system reviewed and no additional complaints, except as documented Psychiatric: Psychiatric: Reports no additional psychiatric complaints Hematologic/Lymphatic: Hematologic/Lymphatic: Reports no additional hematologic/lymphatic complaints Allergic/Immunologic: Allergic/Immunologic: Reports no additional allergic/immunologic complaints PMFSH Past Medical History Medical History Colon perforation Foreign body in sigmoid colon Onychomycosis 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 pylori) GERD (gastroesophageal reflux disease) Breast pain Dyslipidemia Essential hypertension Obese Abdominal mass Insomnia Family History Family History Father No problems noted. Mother Kidney failure Surgical History Surgical History H/O abdominal surgery History of colonoscopy Social History Social History Household Members: None Housing: Apartment Do you presently have visiting nurse or other home services: No Alcohol intake: current Alcohol intake frequency: a few times a month Alcohol type: beer Patient Tobacco Use Status: Former Tobacco user Tobacco use type: Cigarette e-Cigarette/Vaping Use: Never Used Second Hand Smoke Exposure: No service: No Current occupational status: retired Cognitive needs: No Hearing needs: No Vision needs: No Meds Allergies Allergy/AdvReac Type Severity Reaction Status Date / Time No Known Allergies Allergy Verified 03/19/24 15:45 [No Known Allergies*] Active Medications: Current Medications Acetaminophen (Acetaminophen 325 Mg Tablet) 975 mg PO Q6H PRN PRN Reason: Pain, Mild (Pain Scale 1-3), fever or headache Apixaban (Apixaban 5 Mg Tablet) 5 mg PO BID [facility] Last Admin: 03/20/24 08:16 Dose: 5 mg Atorvastatin Calcium (Atorvastatin Calcium 80 Mg Tablet) 80 mg PO DAILY [facility] Last Admin: 03/20/24 08:33 Dose: 80 mg Calcium Carbonate (Calcium Carbonate 750 Mg Tab.Chew) 750 mg PO Q4H PRN PRN Reason: Heartburn Cyclobenzaprine HCl (Cyclobenzaprine Hcl 10 Mg Tablet) 10 mg PO BEDTIME RAYMOND Empagliflozin (Empagliflozin 10 Mg Tablet) 10 mg PO DAILY [facility] Last Admin: 03/20/24 08:33 Dose: 10 mg Fluticasone Propionate (Fluticasone Propionate Nasal 16 Gm [place]) 1 spray NOSTRIL-B DAILY PRN PRN Reason: Allergy Symptoms Furosemide (Furosemide 40 Mg Tablet) 40 mg PO DAILY RAYMOND; Protocol Glucose (Glucose Gel 15 Gm Gel..Gram.) 15 gm PO Q15M PRN; Protocol PRN Reason: per Hypoglycemia Standing Ord. Doxycycline Hyclate 100 mg/ (Sodium Chloride) 250 mls @ 166.67 mls/hr IV Q12H [facility] Last Infusion: 03/20/24 10:00 Dose: Infused Dextrose (D10) 250 mls @ 750 mls/hr IV Q15M PRN; Protocol PRN Reason: per Hypoglycemia Standing Ord. Insulin Human Lispro (Insulin Lispro 100 Unit/Ml 3 Ml Vial) 0 unit SUBCUT QIDACHS [facility]; Protocol Last Admin: 03/20/24 08:29 Dose: Not Given Loratadine (Loratadine 10 Mg Tablet) 10 mg PO DAILY [facility] Last Admin: 03/20/24 08:33 Dose: 10 mg Melatonin (Melatonin 3 Mg Tablet) 6 mg PO BEDTIME PRN PRN Reason: Insomnia Last Admin: 03/19/24 22:53 Dose: 6 mg Metoprolol Succinate (Metoprolol Succinate Er 100 Mg Tab.Er.24h) 100 mg PO DAILY [facility]; Protocol Last Admin: 03/20/24 08:33 Dose: 100 mg Omeprazole (Omeprazole 40 Mg Capsule.Dr) 40 mg PO DAILY@629 [facility] Sertraline HCl (Sertraline Hcl 50 Mg Tablet) 50 mg PO DAILY [facility] Last Admin: 03/20/24 08:33 Dose: 50 mg Sodium Chloride (0.9 % Sodium Chloride Flush 3 Ml Syringe) [facility] Last Admin: 03/20/24 08:29 Dose: 3 ml Trazodone HCl (Trazodone Hcl 100 Mg Tablet) 200 mg PO BEDTIME [facility] Home Medications ?Medication ?Instructions ?Recorded ?Confirmed ?Last Taken ?Type sertraline 50 mg tablet 50 mg PO DAILY 06/14/22 03/19/24 03/19/24 History fluticasone propionate 50 1 spray intranasal DAILY PRN 03/19/24 03/19/24 Unknown History mcg/actuation nasal Allergy Symptoms spray,suspension (Flonase Allergy Relief) ibuprofen 800 mg tablet 800 mg PO DAILY [place] 03/19/24 03/19/24 03/19/24 History metoprolol succinate 50 mg 100 mg PO DAILY 03/19/24 03/19/24 03/19/24 History tablet,extended release 24 hr omeprazole 40 mg capsule,delayed 40 mg PO DAILY@62903/19/24 03/19/24 03/19/24 History release trazodone 100 mg tablet 200 mg PO BEDTIME 03/19/24 03/19/24 03/19/24 History Physical Exam 2 Vital Signs: Vital Signs: Last Vital Signs Temp 98.0 F 03/20/24 11:06 Pulse 82 03/20/24 11:06 Resp 18 03/20/24 11:06 BP 108/57 L 03/20/24 11:06 Pulse Ox 94 03/20/24 11:06 O2 Del Method Room Air 03/20/24 11:06 BMI result Body Mass Index 38.5 Const: General: cooperative, comfortable, no acute distress, alert and awake Nutritional Appearance: obese Orientation/consciousness: patient oriented x3 Limitations: no limitations HEENT: Head: Yes normocephalic and Yes atraumatic Neck: Neck: Yes trachea midline, Yes supple and Yes no JVD Resp: Effort & Inspection: normal respiratory effort Auscultation: clear to auscultation bilaterally Cardio: Jugular venous distension: no JVD Palpation: abnormal PMI displaced PMI Rhythm: abnormal rhythm irregularly irregular Heart sounds: S1 normal heart sound present, S2 normal heart sound present, no click, no gallops and no murmurs GI: Auscultation: normal bowel sounds Skin: General skin exam: no rashes or lesions noted Neuro: General: patient oriented x3 and no focal motor deficits Extrem: General: Yes no clubbing, cyanosis or edema Objective Labs and Meds 03/20/24 05:57 03/20/24 05:57 Lab results: Laboratory Results - last 24 hr 03/19/24 03/19/24 03/19/24 17:21 17:22 21:35 WBC 9.1 RBC 4.89 Hgb 14.8 Hct 43.3 MCV 88.5 MCH 30.3 MCHC 34.2 RDW 13.7 Plt Count 232 MPV 11.4 Immature Gran % (Auto) 0.2 Neut % (Auto) 72.7 Lymph % (Auto) 16.1 L [place] % (Auto) 9.0 Eos % (Auto) 1.0 Baso % (Auto) 1.0 Lymph # (Auto) 1.5 [place] # (Auto) 0.8 Eos # (Auto) 0.1 Baso # (Auto) 0.1 Abs Immat Gran (auto) 0.02 Absolute Neuts (auto) 6.6 Absolute Nucleated RBC 0.000 Nucleated RBC % (auto) 0.0 Smear Tech's Comments PT 13.7 H INR 1.1 Sodium 143 Potassium 4.7 D Chloride 105 Carbon Dioxide 28 Anion Gap 15 BUN 19 H Creatinine 1.23 Estim Creat Clear Calc 60.6 Estimated GFR 59 POC Glucose 118 H Random Glucose 99 Calcium 9.4 D Magnesium 2.1 Total Bilirubin 0.6 AST 24 ALT 26 Alkaline Phosphatase 69 Troponin I High Sens 34.5 B-Natriuretic Peptide 602 H Total Protein 6.9 Albumin 4.0 Lipase 14 03/20/24 03/20/24 03/20/24 05:57 07:01 10:51 WBC 9.5 RBC 4.99 Hgb 14.8 Hct 43.6 MCV 87.4 MCH 29.7 MCHC 33.9 RDW 13.8 Plt Count 229 MPV 12.4 Immature Gran % (Auto) 0.8 H Neut % (Auto) 90.2 H Lymph % (Auto) 7.5 L [place] % (Auto) 1.2 L Eos % (Auto) 0.0 Baso % (Auto) 0.3 Lymph # (Auto) 0.7 L [place] # (Auto) 0.1 Eos # (Auto) 0.0 Baso # (Auto) 0.0 Abs Immat Gran (auto) 0.08 H Absolute Neuts (auto) 8.6 H Absolute Nucleated RBC 0.000 Nucleated RBC % (auto) 0.0 Smear Tech's Comments VERIFIED PT INR Sodium 140 Potassium 4.2 Chloride 108 Carbon Dioxide 21 L Anion Gap 15 BUN 25 H Creatinine 1.10 Estim Creat Clear Calc 67.1 Estimated GFR > 60 POC Glucose 148 H 158 H Random Glucose 172 H Calcium 9.3 Magnesium 1.9 Total Bilirubin AST ALT Alkaline Phosphatase Troponin I High Sens B-Natriuretic Peptide Total Protein Albumin Lipase EKG shows atrial fibrillation rapid ventricular response Imaging Radiologist's impression: Impressions Chest X-Ray 03/19/24 16:13 IMPRESSION: Cardiomegaly with pulmonary vascular congestion. No overt pulmonary edema. No focal consolidation. Assessment and Plan (1) Acute on chronic systolic CHF (congestive heart failure): Status: Acute Acute CHF exacerbation in this elderly man with prior history of heart failure with reduced ejection fraction most likely due to new onset atrial fibrillation loss of AV synchrony. At this point in time continue IV diuresis. Strict input and output chart needs to be maintained. I think patient will benefit from rhythm control approach, see below. Continue current neurohormonal modulation as prescribed. Management of heart failure was discussed. Complete abstinence from alcohol was discussed. Will need sleep study as outpatient. Daily weight monitoring avoidance of salt loading as outpatient was discussed. (2) Atrial fibrillation: Status: Acute Atrial fibrillation, new onset. Rate is controlled although I think with loss of AV synchrony causing him acute congestive heart failure. Exact duration of onset is not known. Would therefore suggest to pursue ROSEMARY guided cardioversion. Most likely require antiarrhythmic drug therapy with amiodarone. Continue full oral anticoagulation, currently on Eliquis 5 mg b.i.d.. Will follow with him Procedures Date of Service Date of Service: 03/20/24
[2024-03-20] MEDS: Insulin Lispro 100 UNIT/ML 3 ML VIAL SUBCUT (12:23)
--- NOTE | 2024-03-20 15:05 | HO.PM.IMPN ---
Subjective Subjective Date of Service: 03/20/24 Interval History: seen and evaluated this morning Heart rate better controlled Feels much better already No other overnight events Review of Systems Review of Systems: Yes all other systems are reviewed and are negative Physical Exam Vital Signs: Vital Signs: Last Vital Signs Temp 98.0 F 03/20/24 11:06 Pulse 82 03/20/24 11:06 Resp 18 03/20/24 11:06 BP 108/57 L 03/20/24 11:06 Pulse Ox 94 03/20/24 11:06 O2 Del Method Room Air 03/20/24 11:06 BMI result Body Mass Index 38.5 Const: Other: Constitutional : Awake, interactive, not in distress Neck : Normal inspection, Supple Cardiovascular : irregular irregular , no JVP, trace lower extremity edema Respiratory : good bilateral air entry, no crackles, wheezes or rhonchi Gastrointestinal: soft, lax, Normal bowel sounds, Non tender Skin : Warm, Dry Neurological : Alert & oriented x3, No focal deficit Objective Data Active Medications Acetaminophen (Acetaminophen 325 Mg Tablet) 975 mg PO Q6H PRN PRN Reason: Pain, Mild (Pain Scale 1-3), fever or headache Apixaban (Apixaban 5 Mg Tablet) 5 mg PO BID [facility] Last Admin: 03/20/24 08:16 Dose: 5 mg Documented By: ROQUE Atorvastatin Calcium (Atorvastatin Calcium 80 Mg Tablet) 80 mg PO DAILY [facility] Last Admin: 03/20/24 08:33 Dose: 80 mg Documented By: ROQUE Calcium Carbonate (Calcium Carbonate 750 Mg Tab.Chew) 750 mg PO Q4H PRN PRN Reason: Heartburn Cyclobenzaprine HCl (Cyclobenzaprine Hcl 10 Mg Tablet) 10 mg PO BEDTIME [facility] Empagliflozin (Empagliflozin 10 Mg Tablet) 10 mg PO DAILY [facility] Last Admin: 03/20/24 08:33 Dose: 10 mg Documented By: ROQUE Fluticasone Propionate (Fluticasone Propionate Nasal 16 Gm [place]) 1 spray NOSTRIL-B DAILY PRN PRN Reason: Allergy Symptoms Furosemide (Furosemide 40 Mg Tablet) 40 mg PO DAILY [facility]; Protocol Glucose (Glucose Gel 15 Gm Gel..Gram.) 15 gm PO Q15M PRN; Protocol PRN Reason: per Hypoglycemia Standing Ord. Doxycycline Hyclate 100 mg/ (Sodium Chloride) 250 mls @ 166.67 mls/hr IV Q12H [facility] Last Infusion: 03/20/24 10:00 Dose: Infused Documented By: ROQUE Dextrose (D10) 250 mls @ 750 mls/hr IV Q15M PRN; Protocol PRN Reason: per Hypoglycemia Standing Ord. Insulin Human Lispro (Insulin Lispro 100 Unit/Ml 3 Ml Vial) 0 unit SUBCUT QIDACHS [facility]; Protocol Last Admin: 03/20/24 12:23 Dose: 2 unit Documented By: ROQUE Loratadine (Loratadine 10 Mg Tablet) 10 mg PO DAILY [facility] Last Admin: 03/20/24 08:33 Dose: 10 mg Documented By: ROQUE Melatonin (Melatonin 3 Mg Tablet) 6 mg PO BEDTIME PRN PRN Reason: Insomnia Last Admin: 03/19/24 22:53 Dose: 6 mg Documented By: DITOLC Metoprolol Succinate (Metoprolol Succinate Er 100 Mg Tab.Er.24h) 100 mg PO DAILY [facility]; Protocol Last Admin: 03/20/24 08:33 Dose: 100 mg Documented By: ROQUE Omeprazole (Omeprazole 40 Mg Capsule.Dr) 40 mg PO DAILY@0630 [facility] Sertraline HCl (Sertraline Hcl 50 Mg Tablet) 50 mg PO DAILY [facility] Last Admin: 03/20/24 08:33 Dose: 50 mg Documented By: ROQUE Sodium Chloride (0.9 % Sodium Chloride Flush 3 Ml Syringe) 3 ml IVFLUSH QSHIFT [facility] Last Admin: 03/20/24 08:29 Dose: 3 ml Documented By: ROQUE Trazodone HCl (Trazodone Hcl 100 Mg Tablet) 200 mg PO BEDTIME [facility] Labs 03/20/24 05:57 03/20/24 05:57 Labs: Laboratory Results - last 24 hr 03/19/24 03/19/24 03/19/24 17:21 17:22 21:35 MCV 88.5 MCH 30.3 MCHC 34.2 RDW 13.7 Plt Count 232 MPV 11.4 Immature Gran % (Auto) 0.2 Neut % (Auto) 72.7 Lymph % (Auto) 16.1 L Jones % (Auto) 9.0 Eos % (Auto) 1.0 Baso % (Auto) 1.0 Lymph # (Auto) 1.5 Jones # (Auto) 0.8 Eos # (Auto) 0.1 Baso # (Auto) 0.1 Abs Immat Gran (auto) 0.02 Absolute Neuts (auto) 6.6 Absolute Nucleated RBC 0.000 Nucleated RBC % (auto) 0.0 Smear Tech's Comments PT 13.7 H INR 1.1 Anion Gap 15 Estim Creat Clear Calc 60.6 Estimated GFR 59 POC Glucose 118 H Random Glucose 99 Calcium 9.4 D Magnesium 2.1 Total Bilirubin 0.6 AST 24 ALT 26 Alkaline Phosphatase 69 Troponin I High Sens 34.5 B-Natriuretic Peptide 602 H Total Protein 6.9 Albumin 4.0 Lipase 14 03/20/24 03/20/24 03/20/24 05:57 07:01 10:51 MCV 87.4 MCH 29.7 MCHC 33.9 RDW 13.8 Plt Count 229 MPV 12.4 Immature Gran % (Auto) 0.8 H Neut % (Auto) 90.2 H Lymph % (Auto) 7.5 L Jones % (Auto) 1.2 L Eos % (Auto) 0.0 Baso % (Auto) 0.3 Lymph # (Auto) 0.7 L Jones # (Auto) 0.1 Eos # (Auto) 0.0 Baso # (Auto) 0.0 Abs Immat Gran (auto) 0.08 H Absolute Neuts (auto) 8.6 H Absolute Nucleated RBC 0.000 Nucleated RBC % (auto) 0.0 Smear Tech's Comments VERIFIED PT INR Anion Gap 15 Estim Creat Clear Calc 67.1 Estimated GFR > 60 POC Glucose 148 H 158 H Random Glucose 172 H Calcium 9.3 Magnesium 1.9 Total Bilirubin AST ALT Alkaline Phosphatase Troponin I High Sens B-Natriuretic Peptide Total Protein Albumin Lipase Assessment and Plan (1) Acute on chronic systolic CHF (congestive heart failure): Status: Acute (2) Atrial fibrillation: Status: Acute (3) Alcohol use: Status: Acute Plan Royal Glover is a 63 y/o admitted with: Acute on chronic systolic congestive heart failure with component of acute bronchitis Improving, he has plans for placement of ICD Keep on Telemetry. Pulse oximetry. Change Lasix 40 mg to PO daily DC Solu-Medrol 80 mg IV Continue Entresto. MEtoprolol XL Cardiology consult. To do CV tomorrow w ROSEMARY Rapid new atrial fibrillation. Continue metoprolol. Eliquis 5 mg PO bid. Hx Alcohol abuse discussed complete abstinence from alcohol Hyperlipidemia. Continue statin Type 2 diabetes mellitus. BG before meals at bedtime. Diabetic diet. Continue Jardiance. Insulin sliding scale. Essential hypertension. Continue metoprolol. Obesity. BMI 39.1 kg/m2. Weight loss. DVT prophylaxis: On Eliquis Code status: Full Patient will need hospitalization for overnight for acute on chronic systolic congestive heart failure treatment with diuretics, supplemental oxygen pending ROSEMARY and cardioversion by cardiology Quality Stroke Does the patient have a stroke diagnosis?: No VTE Prior VTE?: No VTE Risk Level:: Medical - moderate - high VTE Device Contraindication: Treatment Not Indicated VTE Drug Contraindication: N/A - Med Ordered
[2024-03-20 15:55] LABS: Glucose, Whole Blood 143 mg/dL (60-115)
[2024-03-20 20:32] LABS: Glucose, Whole Blood 127 mg/dL (60-115)
[2024-03-20] MEDS: traZODone HCL 100 MG TABLET 200 MG PO (21:38)
[2024-03-20] MEDS: Cyclobenzaprine HCl 10 MG TABLET PO (21:38)
[2024-03-20] MEDS: Doxycycline Hyclate 100 MG in 0.9 % Sodium Chloride 250 ML 166.6 MG IV (21:39)
[2024-03-20] MEDS: Sacubitril/Valsartan 49/51 1 TAB TABLET PO (21:40)
[2024-03-21] VITALS (9 sets, daily range): BP systolic 92–138; BP diastolic 54–78; PULSE 68–100; RESP 14–20; TEMP 36.1–36.7; O2SAT 91–95
[2024-03-21] MEDS: Omeprazole 40 MG CAPSULE.DR PO (06:05)
[2024-03-21 06:14] LABS: Hematocrit 42.9 % (42.0-52.0); Hemoglobin 14.7 g/dl (14.0-18.0); Mean Corpuscular HGB Conc 34.3 g/dl (31.0-36.0); Mean Corpuscular Hemoglobin 29.9 pg (27.0-33.0); Mean Corpuscular Volume 87.4 fL (80.0-98.0); Mean Platelet Volume 12.2 fL (9.4-12.4); Platelet Count 220 X10*3/uL (160-400); Red Blood Count 4.91 X10*6/uL (4.60-5.80); Red Cell Distribution Width 13.8 % (11.0-16.0); White Blood Count 12.9 X10*3/uL (4.8-10.8)
[2024-03-21 06:36] LABS: Anion Gap 13 (12-20); Blood Urea Nitrogen 25 mg/dL (9-16); Calcium 9.5 mg/dL (8.4-10.2); Carbon Dioxide 22 mmol/L (22-29); Chloride 110 mmol/L (96-108); Creatinine Clr Calc Pharmacy 67.8; Estimated Glomerular Filt Rate > 60; Glucose Random 113 mg/dL (60-115); Potassium 3.6 mmol/L (3.3-5.1); Sodium 141 mmol/L (135-145)
[2024-03-21 06:58] LABS: Glucose, Whole Blood 104 mg/dL (60-115)
[2024-03-21] MEDS: Apixaban 5 MG TABLET PO ×2 (09:43→20:22)
[2024-03-21] MEDS: Sacubitril/Valsartan 49/51 1 TAB TABLET PO ×2 (09:43→20:22)
[2024-03-21] MEDS: Atorvastatin Calcium 80 MG TABLET PO (09:44)
[2024-03-21] MEDS: 0.9 % Sodium Chloride Flush 3 ML SYRINGE IVFLUSH ×2 (09:44→16:30)
[2024-03-21] MEDS: Metoprolol Succinate ER 100 MG TAB.ER.24H PO (09:44)
[2024-03-21] MEDS: Furosemide 40 MG TABLET PO (09:44)
[2024-03-21] MEDS: Doxycycline Hyclate 100 MG in 0.9 % Sodium Chloride 250 ML 166.67 MG IV (09:47)
[2024-03-21] MEDS: Loratadine 10 MG TABLET PO (09:48)
[2024-03-21] MEDS: Sertraline HCL 50 MG TABLET PO (09:52)
--- NOTE | 2024-03-21 10:18 | PM.PNCARD ---
Subjective Subjective Date of Service: 03/21/24 Principal diagnosis: Acute CHF, atrial fibrillation. Interval history: Patient remains in atrial fibrillation with controlled ventricular response. Continues to have exertional shortness of breath. Can not do ROSEMARY/cardioversion as patient got a Jardiance and as per Anesthesia policy unless emergent the procedure will need to be postponed. Patient says his shortness of breath improved but visibly still appears to be short of breath doing minimal activity. Taking all his medications. Has diuresed well. Currently on p.o. diuretics. Review of Systems Constitutional: Reports no additional constitutional complaints Cardiovascular: Denies chest pain, Denies lightheadedness, Denies Loss of Consciousness, Denies palpitations, Reports dyspnea on exertion and Denies orthopnea Respiratory: Reports dyspnea on exertion Gastrointestinal: Reports no additional gastrointestinal complaints Skin/Breast: Reports system reviewed and no additional complaints, except as docu Endocrine: Denies palpitations Physical Exam Vital Signs: Last Vital Signs Temp 98.0 F 03/21/24 07:13 Pulse 100 03/21/24 09:48 Resp 18 03/21/24 07:13 BP 101/54 L 03/21/24 09:48 Pulse Ox 94 03/21/24 07:13 O2 Del Method Room Air 03/21/24 07:13 BMI result Body Mass Index 38.5 Const General: cooperative, comfortable, no acute distress, alert and awake Nutritional Appearance: obese Orientation/consciousness: patient oriented x3 Neck Neck: Yes trachea midline, Yes supple and Yes no JVD Resp Effort & Inspection: normal respiratory effort Auscultation: clear to auscultation bilaterally Cardio Rhythm: abnormal rhythm irregularly irregular Heart sounds: S1 normal heart sound present, S2 normal heart sound present, no click, no gallops and no murmurs GI Auscultation: normal bowel sounds Skin General skin exam: no rashes or lesions noted Neuro General: patient oriented x3 and no focal motor deficits Extrem General: Yes no clubbing, cyanosis or edema Objective Labs and Meds 03/21/24 06:02 03/21/24 06:02 Lab results: Laboratory Results - last 24 hr 03/20/24 03/20/24 03/20/24 10:51 15:51 20:28 WBC RBC Hgb Hct MCV MCH MCHC RDW Plt Count MPV Absolute Nucleated RBC Nucleated RBC % (auto) Sodium Potassium Chloride Carbon Dioxide Anion Gap BUN Creatinine Estim Creat Clear Calc Estimated GFR POC Glucose 158 H 143 H 127 H Random Glucose Calcium 03/21/24 03/21/24 06:02 06:54 WBC 12.9 H RBC 4.91 Hgb 14.7 Hct 42.9 MCV 87.4 MCH 29.9 MCHC 34.3 RDW 13.8 Plt Count 220 MPV 12.2 Absolute Nucleated RBC 0.000 Nucleated RBC % (auto) 0.0 Sodium 141 Potassium 3.6 Chloride 110 H Carbon Dioxide 22 Anion Gap 13 BUN 25 H Creatinine 1.09 Estim Creat Clear Calc 67.8 Estimated GFR > 60 POC Glucose 104 Random Glucose 113 Calcium 9.5 Progress Note: A&P Assessment and plan (1) Atrial fibrillation: Status: Acute Assessment and Plan: Persistent but rate control atrial fibrillation. Remains symptomatic with at least NYHA class 2-3 symptoms with shortness of breath with minimal exertion. I think patient needs to pursue rhythm control approach, unfortunately can not perform the procedure today due to his taking Jardiance yesterday. Will need to however do it during this hospitalization given his high risk for recurrent hospitalization related to heart failure. Patient will therefore be monitored on telemetry floor. Advised to ambulate. Continue is usual meds. Continue metoprolol therapy. Plan for ROSEMARY guided cardioversion on 03/24/2024. (2) Acute on chronic systolic CHF (congestive heart failure): Status: Acute Assessment and Plan: Acute systolic heart failure, this decompensation related to new onset persistent atrial fibrillation of unclear duration. Needs ROSEMARY guided cardioversion and rhythm control approach. This was discussed with him. He understands agrees. Clinically currently appears euvolemic and well compensated continue current oral diuretic therapy. Continue current neurohormonal modulation with Entresto, metoprolol therapy. Jardiance on hold. Will follow with him Time Spent With Patient Time: Total time managing care of this patient today ____ minutes. Progress Note: Quality Stroke Does the patient have a stroke diagnosis?: No Procedures Date of Service Date of Service: 03/21/24
[2024-03-21 10:58] LABS: Glucose, Whole Blood 126 mg/dL (60-115)
--- NOTE | 2024-03-21 14:29 | P.PNIM_ITS ---
Subjective Subjective Date of Service: 03/21/24 Interval History: seen and evaluated this morning Heart rate controlled still in afib No other overnight events Review of Systems Review of Systems: Yes all other systems are reviewed and are negative Physical Exam 2 Vital Signs: Vital Signs: Last Vital Signs Temp 97.5 F 03/21/24 11:16 Pulse 87 03/21/24 11:16 Resp 18 03/21/24 11:16 BP 98/63 03/21/24 11:16 Pulse Ox 95 03/21/24 11:16 O2 Del Method Room Air 03/21/24 11:16 BMI result Body Mass Index 38.5 Const: Other: Constitutional : Awake, interactive, not in distress Neck : Normal inspection, Supple Cardiovascular : irregular irregular , no JVP, trace lower extremity edema Respiratory : good bilateral air entry, no crackles, wheezes or rhonchi Gastrointestinal: soft, lax, Normal bowel sounds, Non tender Skin : Warm, Dry Neurological : Alert & oriented x3, No focal deficit Objective Data Active Medications Acetaminophen (Acetaminophen 325 Mg Tablet) 975 mg PO Q6H PRN PRN Reason: Pain, Mild (Pain Scale 1-3), fever or headache Apixaban (Apixaban 5 Mg Tablet) 5 mg PO BID [facility] Last Admin: 03/21/24 09:43 Dose: 5 mg Documented By: SANJAY Atorvastatin Calcium (Atorvastatin Calcium 80 Mg Tablet) 80 mg PO DAILY [facility] Last Admin: 03/21/24 09:44 Dose: 80 mg Documented By: SANJAY Calcium Carbonate (Calcium Carbonate 750 Mg Tab.Chew) 750 mg PO Q4H PRN PRN Reason: Heartburn Cyclobenzaprine HCl (Cyclobenzaprine Hcl 10 Mg Tablet) 10 mg PO BEDTIME [facility] Last Admin: 03/20/24 21:38 Dose: 10 mg Documented By: VERONIQUE Empagliflozin (Empagliflozin 10 Mg Tablet) 10 mg PO DAILY [facility] Last Admin: 03/21/24 09:44 Dose: Not Given Documented By: SANJAY Non-Admin Reason: med on hold per Fluticasone Propionate (Fluticasone Propionate Nasal 16 Gm [place]) 1 spray NOSTRIL-B DAILY PRN PRN Reason: Allergy Symptoms Furosemide (Furosemide 40 Mg Tablet) 40 mg PO DAILY [facility]; Protocol Last Admin: 03/21/24 09:44 Dose: 40 mg Documented By: SANJAY Glucose (Glucose Gel 15 Gm Gel..Gram.) 15 gm PO Q15M PRN; Protocol PRN Reason: per Hypoglycemia Standing Ord. Doxycycline Hyclate 100 mg/ (Sodium Chloride) 250 mls @ 166.67 mls/hr IV Q12H [facility] Last Infusion: 03/21/24 12:38 Dose: Infused Documented By: SANJAY Dextrose (D10) 250 mls @ 750 mls/hr IV Q15M PRN; Protocol PRN Reason: per Hypoglycemia Standing Ord. Insulin Human Lispro (Insulin Lispro 100 Unit/Ml 3 Ml Vial) 0 unit SUBCUT QIDACHS [facility]; Protocol Last Admin: 03/21/24 13:06 Dose: Not Given Documented By: SANJAY Non-Admin Reason: No Insulin Coverage Loratadine (Loratadine 10 Mg Tablet) 10 mg PO DAILY [facility] Last Admin: 03/21/24 09:48 Dose: 10 mg Documented By: SANJAY Melatonin (Melatonin 3 Mg Tablet) 6 mg PO BEDTIME PRN PRN Reason: Insomnia Last Admin: 03/19/24 22:53 Dose: 6 mg Documented By: DIEGO Metoprolol Succinate (Metoprolol Succinate Er 100 Mg Tab.Er.24h) 100 mg PO DAILY [facility]; Protocol Last Admin: 03/21/24 09:44 Dose: 100 mg Documented By: SANJAY Omeprazole (Omeprazole 40 Mg Capsule.Dr) 40 mg PO DAILY@0630 [facility] Last Admin: 03/21/24 06:05 Dose: 40 mg Documented By: VERONIQUE Sacubitril/Valsartan (Sacubitril/Valsartan 49/51 1 Tab Tablet) 1 tab PO BID [facility]; Protocol Last Admin: 03/21/24 09:43 Dose: 1 tab Documented By: SANJAY Sertraline HCl (Sertraline Hcl 50 Mg Tablet) 50 mg PO DAILY [facility] Last Admin: 03/21/24 09:52 Dose: 50 mg Documented By: SANJAY Sodium Chloride (0.9 % Sodium Chloride Flush 3 Ml Syringe) 3 ml IVFLUSH QSHIFT [facility] Last Admin: 03/21/24 09:44 Dose: 3 ml Documented By: SANJAY Trazodone HCl (Trazodone Hcl 100 Mg Tablet) 200 mg PO BEDTIME [facility] Last Admin: 03/20/24 21:38 Dose: 200 mg Documented By: VERONIQUE Labs 03/21/24 06:02 03/21/24 06:02 Labs: Laboratory Results - last 24 hr 03/20/24 03/20/24 03/21/24 15:51 20:28 06:02 MCV 87.4 MCH 29.9 MCHC 34.3 RDW 13.8 Plt Count 220 MPV 12.2 Absolute Nucleated RBC 0.000 Nucleated RBC % (auto) 0.0 Anion Gap 13 Estim Creat Clear Calc 67.8 Estimated GFR > 60 POC Glucose 143 H 127 H Random Glucose 113 Calcium 9.5 03/21/24 03/21/24 06:54 10:52 MCV MCH MCHC RDW Plt Count MPV Absolute Nucleated RBC Nucleated RBC % (auto) Anion Gap Estim Creat Clear Calc Estimated GFR POC Glucose 104 126 H Random Glucose Calcium Assessment and Plan (1) Atrial fibrillation: Status: Acute (2) Acute on chronic systolic CHF (congestive heart failure): Status: Acute Plan Royal Glover is a 63 y/o admitted with: Acute on chronic systolic congestive heart failure with component of acute bronchitis Improving, he has plans for placement of ICD as outpatient, will advocate for dual chamber device Lasix 40 mg to PO daily DC Solu-Medrol 80 mg IV Continue Entresto. MEtoprolol XL Cardiology consult. To do CV Monday w ROSEMARY , Jardiance on hold Rapid new atrial fibrillation. Continue metoprolol. Eliquis 5 mg PO bid. Hx Alcohol abuse discussed complete abstinence from alcohol Hyperlipidemia. Continue statin Type 2 diabetes mellitus. BG before meals at bedtime. Diabetic diet. Continue Jardiance. Insulin sliding scale. Essential hypertension. Continue metoprolol. Obesity. BMI 39.1 kg/m2. Weight loss. DVT prophylaxis: On Eliquis Code status: Full Patient will need hospitalization for overnight for acute on chronic systolic congestive heart failure treatment with diuretics, supplemental oxygen pending ROSEMARY and cardioversion by cardiology Quality Stroke Does the patient have a stroke diagnosis?: No VTE Prior VTE?: No VTE Risk Level:: Medical - moderate - high VTE Device Contraindication: Treatment Not Indicated VTE Drug Contraindication: N/A - Med Ordered
[2024-03-21 16:59] LABS: Glucose, Whole Blood 100 mg/dL (60-115)
[2024-03-21] MEDS: 0.9 % Sodium Chloride 500 ML 100 ML IV (17:42)
[2024-03-21] MEDS: Doxycycline Hyclate 100 MG in 0.9 % Sodium Chloride 250 ML 166.6 MG IV (20:01)
[2024-03-21 20:14] LABS: Glucose, Whole Blood 99 mg/dL (60-115)
[2024-03-21] MEDS: Cyclobenzaprine HCl 10 MG TABLET PO (20:22)
[2024-03-21] MEDS: traZODone HCL 100 MG TABLET 200 MG PO (20:23)
[2024-03-22] VITALS (9 sets, daily range): BP systolic 102–130; BP diastolic 62–77; PULSE 66–133; RESP 18–20; TEMP 36.1–36.9; O2SAT 91–96
[2024-03-22] MEDS: Omeprazole 40 MG CAPSULE.DR PO (05:57)
[2024-03-22 06:52] LABS: Anion Gap 12 (12-20); Blood Urea Nitrogen 25 mg/dL (9-16); Calcium 9.2 mg/dL (8.4-10.2); Carbon Dioxide 24 mmol/L (22-29); Chloride 111 mmol/L (96-108); Creatinine Clr Calc Pharmacy 69.7; Estimated Glomerular Filt Rate > 60; Glucose Random 104 mg/dL (60-115); Potassium 3.8 mmol/L (3.3-5.1); Sodium 143 mmol/L (135-145)
[2024-03-22 06:57] LABS: Hematocrit 44.8 % (42.0-52.0); Hemoglobin 15.4 g/dl (14.0-18.0); Mean Corpuscular HGB Conc 34.4 g/dl (31.0-36.0); Mean Corpuscular Hemoglobin 30.1 pg (27.0-33.0); Mean Corpuscular Volume 87.5 fL (80.0-98.0); Mean Platelet Volume 12.2 fL (9.4-12.4); Platelet Count 208 X10*3/uL (160-400); Red Blood Count 5.12 X10*6/uL (4.60-5.80); Red Cell Distribution Width 13.8 % (11.0-16.0); White Blood Count 8.8 X10*3/uL (4.8-10.8)
[2024-03-22 07:59] LABS: Glucose, Whole Blood 107 mg/dL (60-115)
[2024-03-22] MEDS: Sertraline HCL 50 MG TABLET PO (08:36)
[2024-03-22] MEDS: Metoprolol Succinate ER 100 MG TAB.ER.24H PO (08:36)
[2024-03-22] MEDS: Atorvastatin Calcium 80 MG TABLET PO (08:36)
[2024-03-22] MEDS: Apixaban 5 MG TABLET PO ×2 (08:36→20:38)
[2024-03-22] MEDS: Loratadine 10 MG TABLET PO (08:36)
[2024-03-22] MEDS: Furosemide 40 MG TABLET PO (08:36)
[2024-03-22] MEDS: 0.9 % Sodium Chloride Flush 3 ML SYRINGE IVFLUSH ×3 (08:38→20:38)
[2024-03-22] MEDS: Doxycycline Hyclate 100 MG in 0.9 % Sodium Chloride 250 ML 166.67 MG IV ×2 (08:39→20:34)
--- NOTE | 2024-03-22 10:47 | P.PNCA_ITS ---
Subjective Subjective Date of Service: 03/22/24 Principal diagnosis: Acute CHF, atrial fibrillation. Interval history: Patient with no cardiac symptoms. Overnight had slightly elevated heart rate. Denies any symptoms. Currently denies any palpitations. Review of Systems Constitutional: Reports no additional constitutional complaints Physical Exam Vital Signs: Last Vital Signs Temp 97.5 F 03/22/24 08:00 Pulse 133 H 03/22/24 08:36 Resp 18 03/22/24 08:00 BP 109/74 03/22/24 08:36 Pulse Ox 94 03/22/24 08:00 O2 Del Method Room Air 03/22/24 08:00 O2 Flow Rate 94 03/22/24 03:23 BMI result Body Mass Index 38.5 Const General: cooperative, comfortable, no acute distress, alert and awake Nutritional Appearance: obese Orientation/consciousness: patient oriented x3 Neck Neck: Yes trachea midline, Yes supple and Yes no JVD Resp Effort & Inspection: normal respiratory effort Auscultation: clear to auscultation bilaterally Cardio Rate: tachycardic Rhythm: abnormal rhythm irregularly irregular Heart sounds: S1 normal heart sound present, S2 normal heart sound present, no click, no gallops and no murmurs GI Auscultation: normal bowel sounds Skin General skin exam: no rashes or lesions noted Neuro General: patient oriented x3 and no focal motor deficits Extrem General: Yes no clubbing, cyanosis or edema Objective Labs and Meds 03/22/24 06:20 03/22/24 06:20 Lab results: Laboratory Results - last 24 hr 03/21/24 03/21/24 03/21/24 10:52 16:27 20:07 WBC RBC Hgb Hct MCV MCH MCHC RDW Plt Count MPV Absolute Nucleated RBC Nucleated RBC % (auto) Sodium Potassium Chloride Carbon Dioxide Anion Gap BUN Creatinine Estim Creat Clear Calc Estimated GFR POC Glucose 126 H 100 99 Random Glucose Calcium 03/22/24 03/22/24 06:20 07:52 WBC 8.8 RBC 5.12 Hgb 15.4 Hct 44.8 MCV 87.5 MCH 30.1 MCHC 34.4 RDW 13.8 Plt Count 208 MPV 12.2 Absolute Nucleated RBC 0.000 Nucleated RBC % (auto) 0.0 Sodium 143 Potassium 3.8 Chloride 111 H Carbon Dioxide 24 Anion Gap 12 BUN 25 H Creatinine 1.06 Estim Creat Clear Calc 69.7 Estimated GFR > 60 POC Glucose 107 Random Glucose 104 Calcium 9.2 Progress Note: A&P Assessment and plan (1) Atrial fibrillation: Status: Acute Assessment and Plan: Atrial fibrillation, new onset causing decompensation. Requires rhythm control approach to prevent recurrent hospitalization and recurrent decompensation. Schedule for ROSEMARY guided cardioversion tomorrow due to Jardiance use. Keep him NPO past midnight. Continue full oral anticoagulation. 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 The risks, benefits, alternatives were discussed. Patient understands agrees. Most likely will require antiarrhythmic drug therapy. (2) Acute on chronic systolic CHF (congestive heart failure): Status: Acute Assessment and Plan: Acute congestive heart failure related to new onset atrial fibrillation. Currently clinically appears euvolemic and well compensated. Continue current diuretic and neurohormonal modulation. Plan for rhythm control approach tomorrow. Will follow with you Time Spent With Patient Time: Total time managing care of this patient today ____ minutes. Progress Note: Quality Stroke Does the patient have a stroke diagnosis?: No Procedures Date of Service Date of Service: 03/22/24
--- NOTE | 2024-03-22 11:07 | MHC.CM.PN ---
Per ROUNDS discussion, Patient is not yet medically cleared for d (? need for Cardioversion); home is the goal and CM will continue to follow.
[2024-03-22 11:44] LABS: Glucose, Whole Blood 91 mg/dL (60-115)
--- NOTE | 2024-03-22 12:11 | HO.PM.IMPN ---
Subjective Subjective Date of Service: 03/22/24 Interval History: seen and evaluated this morning Heart rate went up 100-120s still in afib , on RA No other overnight events Review of Systems Review of Systems: Yes all other systems are reviewed and are negative Physical Exam Vital Signs: Vital Signs: Last Vital Signs Temp 97.5 F 03/22/24 08:00 Pulse 133 H 03/22/24 08:36 Resp 18 03/22/24 08:00 BP 109/74 03/22/24 08:36 Pulse Ox 94 03/22/24 08:00 O2 Del Method Room Air 03/22/24 08:00 O2 Flow Rate 94 03/22/24 03:23 BMI result Body Mass Index 38.5 Const: Other: Constitutional : Awake, interactive, not in distress Neck : Normal inspection, Supple Cardiovascular : irregular irregular , no JVP, trace lower extremity edema Respiratory : good bilateral air entry, no crackles, wheezes or rhonchi Gastrointestinal: soft, lax, Normal bowel sounds, Non tender Skin : Warm, Dry Neurological : Alert & oriented x3, No focal deficit Objective Data Active Medications Acetaminophen (Acetaminophen 325 Mg Tablet) 975 mg PO Q6H PRN PRN Reason: Pain, Mild (Pain Scale 1-3), fever or headache Apixaban (Apixaban 5 Mg Tablet) 5 mg PO BID [facility] Last Admin: 03/22/24 08:36 Dose: 5 mg Documented By: SANJAY Atorvastatin Calcium (Atorvastatin Calcium 80 Mg Tablet) 80 mg PO DAILY [facility] Last Admin: 03/22/24 08:36 Dose: 80 mg Documented By: SANJAY Calcium Carbonate (Calcium Carbonate 750 Mg Tab.Chew) 750 mg PO Q4H PRN PRN Reason: Heartburn Cyclobenzaprine HCl (Cyclobenzaprine Hcl 10 Mg Tablet) 10 mg PO BEDTIME [facility] Last Admin: 03/21/24 20:22 Dose: 10 mg Documented By: VERONIQUE Fluticasone Propionate (Fluticasone Propionate Nasal 16 Gm [place]) 1 spray NOSTRIL-B DAILY PRN PRN Reason: Allergy Symptoms Furosemide (Furosemide 40 Mg Tablet) 40 mg PO DAILY [facility]; Protocol Last Admin: 03/22/24 08:36 Dose: 40 mg Documented By: SANJAY Glucose (Glucose Gel 15 Gm Gel..Gram.) 15 gm PO Q15M PRN; Protocol PRN Reason: per Hypoglycemia Standing Ord. Doxycycline Hyclate 100 mg/ (Sodium Chloride) 250 mls @ 166.67 mls/hr IV Q12H [facility] Last Infusion: 03/22/24 10:15 Dose: Infused Documented By: SANJAY Dextrose (D10) 250 mls @ 750 mls/hr IV Q15M PRN; Protocol PRN Reason: per Hypoglycemia Standing Ord. Insulin Human Lispro (Insulin Lispro 100 Unit/Ml 3 Ml Vial) 0 unit SUBCUT QIDACHS [facility]; Protocol Last Admin: 03/22/24 08:39 Dose: Not Given Documented By: SANJAY Non-Admin Reason: No Insulin Coverage Loratadine (Loratadine 10 Mg Tablet) 10 mg PO DAILY [facility] Last Admin: 03/22/24 08:36 Dose: 10 mg Documented By: SANJAY Melatonin (Melatonin 3 Mg Tablet) 6 mg PO BEDTIME PRN PRN Reason: Insomnia Last Admin: 03/19/24 22:53 Dose: 6 mg Documented By: IDEGO Metoprolol Succinate (Metoprolol Succinate Er 100 Mg Tab.Er.24h) 100 mg PO DAILY [facility]; Protocol Last Admin: 03/22/24 08:36 Dose: 100 mg Documented By: SANJAY Omeprazole (Omeprazole 40 Mg Capsule.Dr) 40 mg PO DAILY@0630 [facility] Last Admin: 03/22/24 05:57 Dose: 40 mg Documented By: VERONIQUE Sacubitril/Valsartan (Sacubitril/Valsartan 49/51 1 Tab Tablet) 1 tab PO BID [facility]; Protocol Last Admin: 03/22/24 08:40 Dose: Not Given Documented By: SANJAY Non-Admin Reason: HOLD PER Sertraline HCl (Sertraline Hcl 50 Mg Tablet) 50 mg PO DAILY [facility] Last Admin: 03/22/24 08:36 Dose: 50 mg Documented By: SANJAY Sodium Chloride (0.9 % Sodium Chloride Flush 3 Ml Syringe) 3 ml IVFLUSH QSHIFT [facility] Last Admin: 03/22/24 08:38 Dose: 3 ml Documented By: SANJAY Trazodone HCl (Trazodone Hcl 100 Mg Tablet) 200 mg PO BEDTIME [facility] Last Admin: 03/21/24 20:23 Dose: 200 mg Documented By: VERONIQUE Labs 03/22/24 06:20 03/22/24 06:20 Labs: Laboratory Results - last 24 hr 03/21/24 03/21/24 03/22/24 16:27 20:07 06:20 MCV 87.5 MCH 30.1 MCHC 34.4 RDW 13.8 Plt Count 208 MPV 12.2 Absolute Nucleated RBC 0.000 Nucleated RBC % (auto) 0.0 Anion Gap 12 Estim Creat Clear Calc 69.7 Estimated GFR > 60 POC Glucose 100 99 Random Glucose 104 Calcium 9.2 03/22/24 03/22/24 07:52 11:35 MCV MCH MCHC RDW Plt Count MPV Absolute Nucleated RBC Nucleated RBC % (auto) Anion Gap Estim Creat Clear Calc Estimated GFR POC Glucose 107 91 Random Glucose Calcium Assessment and Plan (1) Acute on chronic systolic CHF (congestive heart failure): Status: Acute (2) Atrial fibrillation: Status: Acute (3) Alcohol use: Status: Acute Plan Royal Glover is a 63 y/o admitted with: Acute on chronic systolic congestive heart failure with component of acute bronchitis Improving, he has plans for placement of ICD as outpatient, will advocate for dual chamber device Lasix 40 mg to PO daily Continue Entresto. MEtoprolol XL Cardiology consult. To do CV Monday w ROSEMARY , Jardiance on hold Rapid new atrial fibrillation. Continue metoprolol. Eliquis 5 mg PO bid. Hx Alcohol abuse discussed complete abstinence from alcohol Hyperlipidemia. Continue statin Type 2 diabetes mellitus. BG before meals at bedtime. Diabetic diet. Continue Jardiance. Insulin sliding scale. Essential hypertension. Continue metoprolol. Obesity. BMI 39.1 kg/m2. Weight loss. DVT prophylaxis: On Eliquis Code status: Full Patient will need hospitalization for overnight for acute on chronic systolic congestive heart failure treatment with diuretics, supplemental oxygen pending ROSEMARY and cardioversion by cardiology Quality Stroke Does the patient have a stroke diagnosis?: No VTE Prior VTE?: No VTE Risk Level:: Medical - moderate - high VTE Device Contraindication: Treatment Not Indicated VTE Drug Contraindication: N/A - Med Ordered
[2024-03-22 16:36] LABS: Glucose, Whole Blood 118 mg/dL (60-115)
[2024-03-22] MEDS: Cyclobenzaprine HCl 10 MG TABLET PO (20:35)
[2024-03-22] MEDS: traZODone HCL 100 MG TABLET 200 MG PO (20:35)
[2024-03-22] MEDS: Sacubitril/Valsartan 49/51 1 TAB TABLET PO (20:35)
[2024-03-22 21:06] LABS: Glucose, Whole Blood 104 mg/dL (60-115)
[2024-03-23] VITALS (11 sets, daily range): BP systolic 90–139; BP diastolic 58–74; PULSE 64–84; RESP 16–20; TEMP 36.1–36.6; O2SAT 92–99
[2024-03-23] MEDS: Omeprazole 40 MG CAPSULE.DR PO (06:13)
[2024-03-23 06:57] LABS: Anion Gap 13 (12-20); Blood Urea Nitrogen 21 mg/dL (9-16); Calcium 9.3 mg/dL (8.4-10.2); Carbon Dioxide 22 mmol/L (22-29); Chloride 111 mmol/L (96-108); Creatinine Clr Calc Pharmacy 76.2; Estimated Glomerular Filt Rate > 60; Glucose Random 108 mg/dL (60-115); Potassium 3.7 mmol/L (3.3-5.1); Sodium 142 mmol/L (135-145)
[2024-03-23 07:07] LABS: B Type Natriuretic Peptide 219 pg/mL (<100)
[2024-03-23 07:23] LABS: Glucose, Whole Blood 113 mg/dL (60-115)
--- NOTE | 2024-03-23 09:00 | HO.PM.IMPN ---
Subjective Subjective Date of Service: 03/23/24 Interval History: seen and evaluated this morning Heart rate controlled in 80s BP running soft still in afib , on RA No other overnight events Review of Systems Review of Systems: Yes all other systems are reviewed and are negative Physical Exam Vital Signs: Vital Signs: Last Vital Signs Temp 97.8 F 03/23/24 07:52 Pulse 84 03/23/24 07:52 Resp 20 03/23/24 07:52 BP 92/58 L 03/23/24 07:52 Pulse Ox 99 03/23/24 07:52 O2 Del Method Room Air 03/23/24 07:52 O2 Flow Rate 94 03/22/24 03:23 BMI result Body Mass Index 38.5 Const: Other: Constitutional : Awake, interactive, not in distress Neck : Normal inspection, Supple Cardiovascular : irregular irregular , no JVP, trace lower extremity edema Respiratory : good bilateral air entry, no crackles, wheezes or rhonchi Gastrointestinal: soft, lax, Normal bowel sounds, Non tender Skin : Warm, Dry Neurological : Alert & oriented x3, No focal deficit Objective Data Active Medications Acetaminophen (Acetaminophen 325 Mg Tablet) 975 mg PO Q6H PRN PRN Reason: Pain, Mild (Pain Scale 1-3), fever or headache Apixaban (Apixaban 5 Mg Tablet) 5 mg PO BID [facility] Last Admin: 03/22/24 20:38 Dose: 5 mg Documented By: RAEGAN Atorvastatin Calcium (Atorvastatin Calcium 80 Mg Tablet) 80 mg PO DAILY [facility] Last Admin: 03/22/24 08:36 Dose: 80 mg Documented By: SANJAY Calcium Carbonate (Calcium Carbonate 750 Mg Tab.Chew) 750 mg PO Q4H PRN PRN Reason: Heartburn Cyclobenzaprine HCl (Cyclobenzaprine Hcl 10 Mg Tablet) 10 mg PO BEDTIME [facility] Last Admin: 03/22/24 20:35 Dose: 10 mg Documented By: RAEGAN Fluticasone Propionate (Fluticasone Propionate Nasal 16 Gm [place]) 1 spray NOSTRIL-B DAILY PRN PRN Reason: Allergy Symptoms Furosemide (Furosemide 40 Mg Tablet) 40 mg PO DAILY [facility]; Protocol Last Admin: 03/22/24 08:36 Dose: 40 mg Documented By: SANJAY Glucose (Glucose Gel 15 Gm Gel..Gram.) 15 gm PO Q15M PRN; Protocol PRN Reason: per Hypoglycemia Standing Ord. Doxycycline Hyclate 100 mg/ (Sodium Chloride) 250 mls @ 166.67 mls/hr IV Q12H [facility] Last Infusion: 03/22/24 22:04 Dose: Infused Documented By: RAEGAN Dextrose (D10) 250 mls @ 750 mls/hr IV Q15M PRN; Protocol PRN Reason: per Hypoglycemia Standing Ord. Insulin Human Lispro (Insulin Lispro 100 Unit/Ml 3 Ml Vial) 0 unit SUBCUT QIDACHS [facility]; Protocol Last Admin: 03/22/24 21:00 Dose: Not Given Documented By: RAEGAN Non-Admin Reason: No Insulin Coverage Loratadine (Loratadine 10 Mg Tablet) 10 mg PO DAILY [facility] Last Admin: 03/22/24 08:36 Dose: 10 mg Documented By: SANJAY Melatonin (Melatonin 3 Mg Tablet) 6 mg PO BEDTIME PRN PRN Reason: Insomnia Last Admin: 03/19/24 22:53 Dose: 6 mg Documented By: DIEGO Metoprolol Succinate (Metoprolol Succinate Er 100 Mg Tab.Er.24h) 100 mg PO DAILY [facility]; Protocol Last Admin: 03/22/24 08:36 Dose: 100 mg Documented By: SANJAY Omeprazole (Omeprazole 40 Mg Capsule.Dr) 40 mg PO DAILY@0630 [facility] Last Admin: 03/23/24 06:13 Dose: 40 mg Documented By: RAEGAN Sacubitril/Valsartan (Sacubitril/Valsartan 49/51 1 Tab Tablet) 1 tab PO BID [facility]; Protocol Last Admin: 03/22/24 20:35 Dose: 1 tab Documented By: RAEGAN Sertraline HCl (Sertraline Hcl 50 Mg Tablet) 50 mg PO DAILY [facility] Last Admin: 03/22/24 08:36 Dose: 50 mg Documented By: SANJAY Sodium Chloride (0.9 % Sodium Chloride Flush 3 Ml Syringe) 3 ml IVFLUSH QSHIFT [facility] Last Admin: 03/22/24 20:38 Dose: 3 ml Documented By: RAEGAN Trazodone HCl (Trazodone Hcl 100 Mg Tablet) 200 mg PO BEDTIME [facility] Last Admin: 03/22/24 20:35 Dose: 200 mg Documented By: RAEGAN Labs 03/22/24 06:20 03/23/24 06:00 Labs: Laboratory Results - last 24 hr 03/22/24 03/22/24 03/22/24 11:35 16:23 21:02 Anion Gap Estim Creat Clear Calc Estimated GFR POC Glucose 91 118 H 104 Random Glucose Calcium B-Natriuretic Peptide 03/23/24 03/23/24 06:00 07:16 Anion Gap 13 Estim Creat Clear Calc 76.2 Estimated GFR > 60 POC Glucose 113 Random Glucose 108 Calcium 9.3 B-Natriuretic Peptide 219 H Assessment and Plan (1) Atrial fibrillation: Status: Acute (2) Acute on chronic systolic CHF (congestive heart failure): Status: Acute Plan Royal Glover is a 63 y/o admitted with: Acute on chronic systolic congestive heart failure with component of acute bronchitis Improving, he has plans for placement of ICD as outpatient, will advocate for dual chamber device Lasix 40 mg to PO daily Continue Entresto. MEtoprolol XL Cardiology To do CV with ROSEMARY and will likely load with anti-arrythmatic afterward Jardiance on hold Rapid new atrial fibrillation. Continue metoprolol. Eliquis 5 mg PO bid. Hx Alcohol abuse discussed complete abstinence from alcohol Hyperlipidemia. Continue statin Type 2 diabetes mellitus. BG before meals at bedtime. Diabetic diet. Continue Jardiance. Insulin sliding scale. Essential hypertension. Continue metoprolol. Obesity. BMI 39.1 kg/m2. Weight loss. DVT prophylaxis: On Eliquis Code status: Full Patient will need hospitalization for overnight for acute on chronic systolic congestive heart failure treatment with diuretics, supplemental oxygen pending ROSEMARY and cardioversion by cardiology Quality Stroke Does the patient have a stroke diagnosis?: No VTE Prior VTE?: No VTE Risk Level:: Medical - moderate - high VTE Device Contraindication: Treatment Not Indicated VTE Drug Contraindication: N/A - Med Ordered
[2024-03-23] MEDS: Doxycycline Hyclate 100 MG in 0.9 % Sodium Chloride 250 ML 166.67 MG IV ×2 (09:16→19:19)
[2024-03-23] MEDS: 0.9 % Sodium Chloride Flush 3 ML SYRINGE IVFLUSH ×3 (09:16→20:06)
[2024-03-23] MEDS: Apixaban 5 MG TABLET PO ×2 (09:17→20:05)
[2024-03-23] MEDS: Sertraline HCL 50 MG TABLET PO (09:17)
[2024-03-23] MEDS: Atorvastatin Calcium 80 MG TABLET PO (09:17)
[2024-03-23] MEDS: Loratadine 10 MG TABLET PO (09:17)
[2024-03-23] MEDS: Acetaminophen 325 MG TABLET 975 MG PO ×2 (09:19→19:18)
--- NOTE | 2024-03-23 09:33 | CA_ITS ---
Transesophageal Echocardiogram Amended Patient (Last, First, Middle): Royal Glover, Gender: Male Date of : 1960 Age: 63 Procedure Date: 03/23/2024 Procedure Type: Transesophageal Echocardiogram [place] [facility] [place]: 157.48 cm Weight: 95.26 kg BSA: 1.95 m2 Heart Rate: 119 bpm BP: 100 / 56 mmHg Pneumatic Jack Operator: SB Referring MD: Marcos Osuna MD Symptoms: Pre cardioversion Healthcare Financial Analyst: Marcos Osuna MD Conclusion: ??? 1. No intracardiac thrombi, masses or vegetations 2. 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 At least moderate mitral regurgitation 4. Biatrial enlargement with presence of small PFO 5. No pericardial effusion Findings Procedure Information Consent was obtained prior to the procedure. Pre ROSEMARY oral cavity was checked and revealed mild overcrowding. The adult 3D probe was passed with no difficulty. Left Ventricle The left ventricular systolic function is severely decreased. The visually estimated ejection fraction is between 10-15%. Diastolic function is indeterminate on the basis of available data. LV cavity is dilated. also increased trabeculation noted could represent noncompaction, consider cardiac MRI Right Ventricle Mildly increased right ventricular cavity size. Atria The left atrium is moderately dilated. Patent foramen ovale detected using by color Doppler. There is evidence of a patent foramen ovale with left to right shunting. There is no evidence of thrombus or mass in the left atrium. left atrial appendage was added for multiple appears. There were no thrombi or smoke formation seen in the left atrial appendage. Left atrial appendage ejection velocities reduced his expected. The left upper, right upper and right lower pulmonary injury normally into the left atrium. The right atrium is mildly dilated. Small PFO noted by color Doppler. Right atrium was identified multiple you. IVC and SVC drained normally into the right atrium. No thrombi or masses seen within the right atrium. No thrombus seen in the right atrial appendage. Aortic Valve Normal aortic valve structure and function. There is no aortic valve stenosis. There is trace (trivial) aortic valve regurgitation. Mitral Valve There is mild anterior and posterior mitral leaflet thickening. There is moderate mitral valve regurgitation. There is no mitral valve stenosis. Pulmonic Valve The pulmonic valve is likely normal. Tricuspid Valve Normal tricuspid valve structure. There is trace tricuspid valve regurgitation. Tricuspid regurgitation envelope is inadequate for calculation of right ventricular systolic pressure. Great Vessels All visible segments of the aorta are normal in size. The visualized portions of the pulmonary artery and branches are normal. Venous The inferior vena cava is normal in size and collapses greater than 50% with inspiration. Pericardium/Pleural There is no evidence of pericardial effusion. Updated by Marcos Osuna on 01:51 PM with Status of Final Marcos Osuna MD electronically signed on 03/23/2024 1:51:37 PM with status of Final
--- NOTE | 2024-03-23 09:35 | MHC.SHP ---
Pre-Procedural Eval Section A - 24 Hr Update-Section A only Date of Service: 03/23/24 The patient is an INPATIENT: Yes Changes since office visit: Yes Patient answered all questions; No Cold of Flu in the past 2 weeks, No New Medical Problems and No Changes in Medication The patient has been examined within 24 hours of the surgical procedure. The History & Physical has been completed within 30 days and I have reviewed it.: Yes Section B - Complete if H&P > 30 days Chief Complaint: acute chronic CHF Allergies: Allergies Allergy/AdvReac Type Severity Reaction Status Date / Time No Known Allergies Allergy Verified 03/19/24 15:45 [No Known Allergies*] Plan I have reviewed the history and physical and performed a pertinent physical examination on my patient. No changes have occurred unless specified. Time Spent With Patient Time: Total time managing care of this patient today ____ minutes.
--- NOTE | 2024-03-23 10:10 | HO.ANESPROP2 ---
[facility], [facility] Active Problems Active Problems: All Active Problems Atrial fibrillation (Acute) Acute on chronic systolic CHF (congestive heart failure) (Acute) Alcohol use (Acute) Hyperlipidemia LDL goal <70 (Acute) Diabetes mellitus (Acute) Chronic sore throat (Acute) Hearing loss (Acute) Lower thoracic back pain (Acute) Constipation by delayed colonic transit (Acute) Chronic systolic heart failure (Acute) Onychomycosis (Acute) Insomnia due to alcohol (Acute) Microalbuminuria (Acute) Adult general medical exam (Acute) Back pain (Acute) Runny nose (Acute) Cough (Acute) Eye exam, routine (Acute) Screening for colon cancer (Acute) Screening for prostate cancer (Acute) Mild recurrent major depression (Acute) MIGUELINA (generalized anxiety disorder) (Acute) Helicobacter pylori (H. pylori) (Acute) GERD (gastroesophageal reflux disease) (Acute) Breast pain (Acute) Dyslipidemia (Acute) Essential hypertension (Acute) Obese (Acute) Abdominal mass (Acute) NICM (nonischemic cardiomyopathy) (Acute) Past Medical History Medical History Colon perforation Foreign body in sigmoid colon Onychomycosis 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 pylori) GERD (gastroesophageal reflux disease) Breast pain Dyslipidemia Essential hypertension Obese Abdominal mass Insomnia Family History Family History Father No problems noted. Mother Kidney failure Surgical History Surgical History H/O abdominal surgery History of colonoscopy History of Problems with Anesthesia: No Social History Social History Household Members: None Housing: Apartment Do you presently have visiting nurse or other home services: No Alcohol intake: current Alcohol intake frequency: a few times a month Alcohol type: beer Patient Tobacco Use Status: Former Tobacco user Tobacco use type: Cigarette e-Cigarette/Vaping Use: Never Used Second Hand Smoke Exposure: No service: No Current occupational status: retired Cognitive needs: No Hearing needs: No Vision needs: No Meds Allergies Allergy/AdvReac Type Severity Reaction Status Date / Time No Known Allergies Allergy Verified 03/19/24 15:45 [No Known Allergies*] Active Medications: Current Medications Acetaminophen (Acetaminophen 325 Mg Tablet) 975 mg PO Q6H PRN PRN Reason: Pain, Mild (Pain Scale 1-3), fever or headache Last Admin: 03/23/24 09:19 Dose: 975 mg Apixaban (Apixaban 5 Mg Tablet) 5 mg PO BID [facility] Last Admin: 03/23/24 09:17 Dose: 5 mg Atorvastatin Calcium (Atorvastatin Calcium 80 Mg Tablet) 80 mg PO DAILY [facility] Last Admin: 03/23/24 09:17 Dose: 80 mg Calcium Carbonate (Calcium Carbonate 750 Mg Tab.Chew) 750 mg PO Q4H PRN PRN Reason: Heartburn Cyclobenzaprine HCl (Cyclobenzaprine Hcl 10 Mg Tablet) 10 mg PO BEDTIME [facility] Last Admin: 03/22/24 20:35 Dose: 10 mg Fluticasone Propionate (Fluticasone Propionate Nasal 16 Gm [place]) 1 spray NOSTRIL-B DAILY PRN PRN Reason: Allergy Symptoms Furosemide (Furosemide 40 Mg Tablet) 40 mg PO DAILY [facility]; Protocol Last Admin: 03/23/24 09:32 Dose: Not Given Glucose (Glucose Gel 15 Gm Gel..Gram.) 15 gm PO Q15M PRN; Protocol PRN Reason: per Hypoglycemia Standing Ord. Doxycycline Hyclate 100 mg/ (Sodium Chloride) 250 mls @ 166.67 mls/hr IV Q12H [facility] Last Admin: 03/23/24 09:16 Dose: 166.67 mls/hr Dextrose (D10) 250 mls @ 750 mls/hr IV Q15M PRN; Protocol PRN Reason: per Hypoglycemia Standing Ord. Insulin Human Lispro (Insulin Lispro 100 Unit/Ml 3 Ml Vial) 0 unit SUBCUT QIDACHS [facility]; Protocol Last Admin: 03/23/24 09:17 Dose: Not Given Loratadine (Loratadine 10 Mg Tablet) 10 mg PO DAILY [facility] Last Admin: 03/23/24 09:17 Dose: 10 mg Melatonin (Melatonin 3 Mg Tablet) 6 mg PO BEDTIME PRN PRN Reason: Insomnia Last Admin: 03/19/24 22:53 Dose: 6 mg Metoprolol Succinate (Metoprolol Succinate Er 100 Mg Tab.Er.24h) 100 mg PO DAILY [facility]; Protocol Last Admin: 03/23/24 09:32 Dose: Not Given Omeprazole (Omeprazole 40 Mg Capsule.) 40 mg PO DAILY@0630 [facility] Last Admin: 03/23/24 06:13 Dose: 40 mg Sacubitril/Valsartan (Sacubitril/Valsartan 49/51 1 Tab Tablet) 1 tab PO BID [facility]; Protocol Last Admin: 03/23/24 10:05 Dose: Not Given Sertraline HCl (Sertraline Hcl 50 Mg Tablet) 50 mg PO DAILY [facility] Last Admin: 03/23/24 09:17 Dose: 50 mg Sodium Chloride (0.9 % Sodium Chloride Flush 3 Ml Syringe) 3 ml IVFLUSH QSHIFT [facility] Last Admin: 03/23/24 09:16 Dose: 3 ml Trazodone HCl (Trazodone Hcl 100 Mg Tablet) 200 mg PO BEDTIME [facility] Last Admin: 03/22/24 20:35 Dose: 200 mg Home Medications ?Medication ?Instructions ?Recorded ?Confirmed ?Last Taken ?Type sertraline 50 mg tablet 50 mg PO DAILY 06/14/22 03/19/24 03/19/24 History fluticasone propionate 50 1 spray intranasal DAILY PRN 03/19/24 03/19/24 Unknown History mcg/actuation nasal Allergy Symptoms spray,suspension (Flonase Allergy Relief) ibuprofen 800 mg tablet 800 mg PO DAILY [facility] 03/19/24 03/19/24 03/19/24 History metoprolol succinate 50 mg 100 mg PO DAILY 03/19/24 03/19/24 03/19/24 History tablet,extended release 24 hr omeprazole 40 mg capsule,delayed 40 mg PO DAILY@0630 03/19/24 03/19/24 03/19/24 History release trazodone 100 mg tablet 200 mg PO BEDTIME 03/19/24 03/19/24 03/19/24 History Exam Height,Weight and Vital Signs: Height 5 ft 2 in Weight 95.5 kg Last Vital Signs Temp 97.8 F 03/23/24 07:52 Pulse 84 03/23/24 07:52 Resp 20 03/23/24 07:52 BP 92/58 L 03/23/24 07:52 Pulse Ox 99 03/23/24 07:52 O2 Del Method Room Air 03/23/24 07:52 O2 Flow Rate 94 03/22/24 03:23 Pertinent Lab Results Pertinent Lab Results: Laboratory Tests 03/19/24 03/19/24 03/19/24 17:21 17:22 21:35 WBC 9.1 RBC 4.89 Hgb 14.8 Hct 43.3 MCV 88.5 MCH 30.3 MCHC 34.2 RDW 13.7 Plt Count 232 MPV 11.4 Immature Gran % (Auto) 0.2 Neut % (Auto) 72.7 Lymph % (Auto) 16.1 L [place] % (Auto) 9.0 Eos % (Auto) 1.0 Baso % (Auto) 1.0 Lymph # (Auto) 1.5 [place] # (Auto) 0.8 Eos # (Auto) 0.1 Baso # (Auto) 0.1 Abs Immat Gran (auto) 0.02 Absolute Neuts (auto) 6.6 Absolute Nucleated RBC 0.000 Nucleated RBC % (auto) 0.0 Smear Tech's Comments PT 13.7 H INR 1.1 Sodium 143 Potassium 4.7 D Chloride 105 Carbon Dioxide 28 Anion Gap 15 BUN 19 H Creatinine 1.23 Estim Creat Clear Calc 60.6 Estimated GFR 59 POC Glucose 118 H Random Glucose 99 Calcium 9.4 D Magnesium 2.1 Total Bilirubin 0.6 AST 24 ALT 26 Alkaline Phosphatase 69 Troponin I High Sens 34.5 B-Natriuretic Peptide 602 H Total Protein 6.9 Albumin 4.0 Lipase 14 03/20/24 03/20/24 03/20/24 05:57 07:01 10:51 WBC 9.5 RBC 4.99 Hgb 14.8 Hct 43.6 MCV 87.4 MCH 29.7 MCHC 33.9 RDW 13.8 Plt Count 229 MPV 12.4 Immature Gran % (Auto) 0.8 H Neut % (Auto) 90.2 H Lymph % (Auto) 7.5 L [place] % (Auto) 1.2 L Eos % (Auto) 0.0 Baso % (Auto) 0.3 Lymph # (Auto) 0.7 L [place] # (Auto) 0.1 Eos # (Auto) 0.0 Baso # (Auto) 0.0 Abs Immat Gran (auto) 0.08 H Absolute Neuts (auto) 8.6 H Absolute Nucleated RBC 0.000 Nucleated RBC % (auto) 0.0 Smear Tech's Comments VERIFIED PT INR Sodium 140 Potassium 4.2 Chloride 108 Carbon Dioxide 21 L Anion Gap 15 BUN 25 H Creatinine 1.10 Estim Creat Clear Calc 67.1 Estimated GFR > 60 POC Glucose 148 H 158 H Random Glucose 172 H Calcium 9.3 Magnesium 1.9 Total Bilirubin AST ALT Alkaline Phosphatase Troponin I High Sens B-Natriuretic Peptide Total Protein Albumin Lipase 03/20/24 03/20/24 03/21/24 15:51 20:28 06:02 WBC 12.9 H RBC 4.91 Hgb 14.7 Hct 42.9 MCV 87.4 MCH 29.9 MCHC 34.3 RDW 13.8 Plt Count 220 MPV 12.2 Immature Gran % (Auto) Neut % (Auto) Lymph % (Auto) [place] % (Auto) Eos % (Auto) Baso % (Auto) Lymph # (Auto) [place] # (Auto) Eos # (Auto) Baso # (Auto) Abs Immat Gran (auto) Absolute Neuts (auto) Absolute Nucleated RBC 0.000 Nucleated RBC % (auto) 0.0 Smear Tech's Comments PT INR Sodium 141 Potassium 3.6 Chloride 110 H Carbon Dioxide 22 Anion Gap 13 BUN 25 H Creatinine 1.09 Estim Creat Clear Calc 67.8 Estimated GFR > 60 POC Glucose 143 H 127 H Random Glucose 113 Calcium 9.5 Magnesium Total Bilirubin AST ALT Alkaline Phosphatase Troponin I High Sens B-Natriuretic Peptide Total Protein Albumin Lipase 03/21/24 03/21/24 03/21/24 06:54 10:52 16:27 WBC RBC Hgb Hct MCV MCH MCHC RDW Plt Count MPV Immature Gran % (Auto) Neut % (Auto) Lymph % (Auto) [place] % (Auto) Eos % (Auto) Baso % (Auto) Lymph # (Auto) [place] # (Auto) Eos # (Auto) Baso # (Auto) Abs Immat Gran (auto) Absolute Neuts (auto) Absolute Nucleated RBC Nucleated RBC % (auto) Smear Tech's Comments PT INR Sodium Potassium Chloride Carbon Dioxide Anion Gap BUN Creatinine Estim Creat Clear Calc Estimated GFR POC Glucose 104 126 H 100 Random Glucose Calcium Magnesium Total Bilirubin AST ALT Alkaline Phosphatase Troponin I High Sens B-Natriuretic Peptide Total Protein Albumin Lipase 03/21/24 03/22/24 03/22/24 20:07 06:20 07:52 WBC 8.8 RBC 5.12 Hgb 15.4 Hct 44.8 MCV 87.5 MCH 30.1 MCHC 34.4 RDW 13.8 Plt Count 208 MPV 12.2 Immature Gran % (Auto) Neut % (Auto) Lymph % (Auto) [place] % (Auto) Eos % (Auto) Baso % (Auto) Lymph # (Auto) [place] # (Auto) Eos # (Auto) Baso # (Auto) Abs Immat Gran (auto) Absolute Neuts (auto) Absolute Nucleated RBC 0.000 Nucleated RBC % (auto) 0.0 Smear Tech's Comments PT INR Sodium 143 Potassium 3.8 Chloride 111 H Carbon Dioxide 24 Anion Gap 12 BUN 25 H Creatinine 1.06 Estim Creat Clear Calc 69.7 Estimated GFR > 60 POC Glucose 99 107 Random Glucose 104 Calcium 9.2 Magnesium Total Bilirubin AST ALT Alkaline Phosphatase Troponin I High Sens B-Natriuretic Peptide Total Protein Albumin Lipase 03/22/24 03/22/24 03/22/24 11:35 16:23 21:02 WBC RBC Hgb Hct MCV MCH MCHC RDW Plt Count MPV Immature Gran % (Auto) Neut % (Auto) Lymph % (Auto) [place] % (Auto) Eos % (Auto) Baso % (Auto) Lymph # (Auto) [place] # (Auto) Eos # (Auto) Baso # (Auto) Abs Immat Gran (auto) Absolute Neuts (auto) Absolute Nucleated RBC Nucleated RBC % (auto) Smear Tech's Comments PT INR Sodium Potassium Chloride Carbon Dioxide Anion Gap BUN Creatinine Estim Creat Clear Calc Estimated GFR POC Glucose 91 118 H 104 Random Glucose Calcium Magnesium Total Bilirubin AST ALT Alkaline Phosphatase Troponin I High Sens B-Natriuretic Peptide Total Protein Albumin Lipase 03/23/24 03/23/24 06:00 07:16 WBC RBC Hgb Hct MCV MCH MCHC RDW Plt Count MPV Immature Gran % (Auto) Neut % (Auto) Lymph % (Auto) [place] % (Auto) Eos % (Auto) Baso % (Auto) Lymph # (Auto) [place] # (Auto) Eos # (Auto) Baso # (Auto) Abs Immat Gran (auto) Absolute Neuts (auto) Absolute Nucleated RBC Nucleated RBC % (auto) Smear Tech's Comments PT INR Sodium 142 Potassium 3.7 Chloride 111 H Carbon Dioxide 22 Anion Gap 13 BUN 21 H Creatinine 0.97 Estim Creat Clear Calc 76.2 Estimated GFR > 60 POC Glucose 113 Random Glucose 108 Calcium 9.3 Magnesium Total Bilirubin AST ALT Alkaline Phosphatase Troponin I High Sens B-Natriuretic Peptide 219 H Total Protein Albumin Lipase Assessment and Plan Final Anesthetic Review History of Problems with Anesthesia: No
--- NOTE | 2024-03-23 10:29 | P.CONAN_ITS ---
[facility] Active Problems Active Problems: All Active Problems Atrial fibrillation (Acute) Acute on chronic systolic CHF (congestive heart failure) (Acute) Alcohol use (Acute) Hyperlipidemia LDL goal <70 (Acute) Diabetes mellitus (Acute) Chronic sore throat (Acute) Hearing loss (Acute) Lower thoracic back pain (Acute) Constipation by delayed colonic transit (Acute) Chronic systolic heart failure (Acute) Onychomycosis (Acute) Insomnia due to alcohol (Acute) Microalbuminuria (Acute) Adult general medical exam (Acute) Back pain (Acute) Runny nose (Acute) Cough (Acute) Eye exam, routine (Acute) Screening for colon cancer (Acute) Screening for prostate cancer (Acute) Mild recurrent major depression (Acute) MIGUELINA (generalized anxiety disorder) (Acute) Helicobacter pylori (H. pylori) (Acute) GERD (gastroesophageal reflux disease) (Acute) Breast pain (Acute) Dyslipidemia (Acute) Essential hypertension (Acute) Obese (Acute) Abdominal mass (Acute) NICM (nonischemic cardiomyopathy) (Acute) Past Medical History Medical History Colon perforation Foreign body in sigmoid colon Onychomycosis 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 pylori) GERD (gastroesophageal reflux disease) Breast pain Dyslipidemia Essential hypertension Obese Abdominal mass Insomnia Family History Family History Father No problems noted. Mother Kidney failure Surgical History Surgical History H/O abdominal surgery History of colonoscopy History of Problems with Anesthesia: No Social History Social History Household Members: None Housing: Apartment Do you presently have visiting nurse or other home services: No Alcohol intake: current Alcohol intake frequency: a few times a month Alcohol type: beer Patient Tobacco Use Status: Former Tobacco user Tobacco use type: Cigarette e-Cigarette/Vaping Use: Never Used Second Hand Smoke Exposure: No service: No Current occupational status: retired Cognitive needs: No Hearing needs: No Vision needs: No Meds Allergies Allergy/AdvReac Type Severity Reaction Status Date / Time No Known Allergies Allergy Verified 03/19/24 15:45 [No Known Allergies*] Active Medications: Current Medications Acetaminophen (Acetaminophen 325 Mg Tablet) 975 mg PO Q6H PRN PRN Reason: Pain, Mild (Pain Scale 1-3), fever or headache Last Admin: 03/23/24 09:19 Dose: 975 mg Apixaban (Apixaban 5 Mg Tablet) 5 mg PO BID [facility] Last Admin: 03/23/24 09:17 Dose: 5 mg Atorvastatin Calcium (Atorvastatin Calcium 80 Mg Tablet) 80 mg PO DAILY [facility] Last Admin: 03/23/24 09:17 Dose: 80 mg Calcium Carbonate (Calcium Carbonate 750 Mg Tab.Chew) 750 mg PO Q4H PRN PRN Reason: Heartburn Cyclobenzaprine HCl (Cyclobenzaprine Hcl 10 Mg Tablet) 10 mg PO BEDTIME [facility] Last Admin: 03/22/24 20:35 Dose: 10 mg Fluticasone Propionate (Fluticasone Propionate Nasal 16 Gm [place]) 1 spray NOSTRIL-B DAILY PRN PRN Reason: Allergy Symptoms Furosemide (Furosemide 40 Mg Tablet) 40 mg PO DAILY [facility]; Protocol Last Admin: 03/23/24 09:32 Dose: Not Given Glucose (Glucose Gel 15 Gm Gel..Gram.) 15 gm PO Q15M PRN; Protocol PRN Reason: per Hypoglycemia Standing Ord. Doxycycline Hyclate 100 mg/ (Sodium Chloride) 250 mls @ 166.67 mls/hr IV Q12H [facility] Last Admin: 03/23/24 09:16 Dose: 166.67 mls/hr Dextrose (D10) 250 mls @ 750 mls/hr IV Q15M PRN; Protocol PRN Reason: per Hypoglycemia Standing Ord. Insulin Human Lispro (Insulin Lispro 100 Unit/Ml 3 Ml Vial) 0 unit SUBCUT QIDACHS [facility]; Protocol Last Admin: 03/23/24 09:17 Dose: Not Given Loratadine (Loratadine 10 Mg Tablet) 10 mg PO DAILY [facility] Last Admin: 03/23/24 09:17 Dose: 10 mg Melatonin (Melatonin 3 Mg Tablet) 6 mg PO BEDTIME PRN PRN Reason: Insomnia Last Admin: 03/19/24 22:53 Dose: 6 mg Metoprolol Succinate (Metoprolol Succinate Er 100 Mg Tab.Er.24h) 100 mg PO DAILY [facility]; Protocol Last Admin: 03/23/24 09:32 Dose: Not Given Omeprazole (Omeprazole 40 Mg Capsule.) 40 mg PO DAILY@0630 [facility] Last Admin: 03/23/24 06:13 Dose: 40 mg Sacubitril/Valsartan (Sacubitril/Valsartan 49/51 1 Tab Tablet) 1 tab PO BID [facility]; Protocol Last Admin: 03/23/24 10:05 Dose: Not Given Sertraline HCl (Sertraline Hcl 50 Mg Tablet) 50 mg PO DAILY [facility] Last Admin: 03/23/24 09:17 Dose: 50 mg Sodium Chloride (0.9 % Sodium Chloride Flush 3 Ml Syringe) 3 ml IVFLUSH QSHIFT [facility] Last Admin: 03/23/24 09:16 Dose: 3 ml Trazodone HCl (Trazodone Hcl 100 Mg Tablet) 200 mg PO BEDTIME [facility] Last Admin: 03/22/24 20:35 Dose: 200 mg Home Medications ?Medication ?Instructions ?Recorded ?Confirmed ?Last Taken ?Type sertraline 50 mg tablet 50 mg PO DAILY 06/14/22 03/19/24 03/19/24 History fluticasone propionate 50 1 spray intranasal DAILY PRN 03/19/24 03/19/24 Unknown History mcg/actuation nasal Allergy Symptoms spray,suspension (Flonase Allergy Relief) ibuprofen 800 mg tablet 800 mg PO DAILY [place] 03/19/24 03/19/24 03/19/24 History metoprolol succinate 50 mg 100 mg PO DAILY 03/19/24 03/19/24 03/19/24 History tablet,extended release 24 hr omeprazole 40 mg capsule,delayed 40 mg PO DAILY@0630 03/19/24 03/19/24 03/19/24 History release trazodone 100 mg tablet 200 mg PO BEDTIME 03/19/24 03/19/24 03/19/24 History Exam Height,Weight and Vital Signs: Height 5 ft 2 in Weight 95.5 kg Last Vital Signs Temp 97.8 F 03/23/24 07:52 Pulse 84 03/23/24 07:52 Resp 20 03/23/24 07:52 BP 92/58 L 03/23/24 07:52 Pulse Ox 99 03/23/24 07:52 O2 Del Method Room Air 03/23/24 07:52 O2 Flow Rate 94 03/22/24 03:23 Pertinent Lab Results Pertinent Lab Results: Laboratory Tests 03/19/24 03/19/24 03/19/24 17:21 17:22 21:35 WBC 9.1 RBC 4.89 Hgb 14.8 Hct 43.3 MCV 88.5 MCH 30.3 MCHC 34.2 RDW 13.7 Plt Count 232 MPV 11.4 Immature Gran % (Auto) 0.2 Neut % (Auto) 72.7 Lymph % (Auto) 16.1 L [place] % (Auto) 9.0 Eos % (Auto) 1.0 Baso % (Auto) 1.0 Lymph # (Auto) 1.5 [place] # (Auto) 0.8 Eos # (Auto) 0.1 Baso # (Auto) 0.1 Abs Immat Gran (auto) 0.02 Absolute Neuts (auto) 6.6 Absolute Nucleated RBC 0.000 Nucleated RBC % (auto) 0.0 Smear Tech's Comments PT 13.7 H INR 1.1 Sodium 143 Potassium 4.7 D Chloride 105 Carbon Dioxide 28 Anion Gap 15 BUN 19 H Creatinine 1.23 Estim Creat Clear Calc 60.6 Estimated GFR 59 POC Glucose 118 H Random Glucose 99 Calcium 9.4 D Magnesium 2.1 Total Bilirubin 0.6 AST 24 ALT 26 Alkaline Phosphatase 69 Troponin I High Sens 34.5 B-Natriuretic Peptide 602 H Total Protein 6.9 Albumin 4.0 Lipase 14 03/20/24 03/20/24 03/20/24 05:57 07:01 10:51 WBC 9.5 RBC 4.99 Hgb 14.8 Hct 43.6 MCV 87.4 MCH 29.7 MCHC 33.9 RDW 13.8 Plt Count 229 MPV 12.4 Immature Gran % (Auto) 0.8 H Neut % (Auto) 90.2 H Lymph % (Auto) 7.5 L [place] % (Auto) 1.2 L Eos % (Auto) 0.0 Baso % (Auto) 0.3 Lymph # (Auto) 0.7 L [place] # (Auto) 0.1 Eos # (Auto) 0.0 Baso # (Auto) 0.0 Abs Immat Gran (auto) 0.08 H Absolute Neuts (auto) 8.6 H Absolute Nucleated RBC 0.000 Nucleated RBC % (auto) 0.0 Smear Tech's Comments VERIFIED PT INR Sodium 140 Potassium 4.2 Chloride 108 Carbon Dioxide 21 L Anion Gap 15 BUN 25 H Creatinine 1.10 Estim Creat Clear Calc 67.1 Estimated GFR > 60 POC Glucose 148 H 158 H Random Glucose 172 H Calcium 9.3 Magnesium 1.9 Total Bilirubin AST ALT Alkaline Phosphatase Troponin I High Sens B-Natriuretic Peptide Total Protein Albumin Lipase 03/20/24 03/20/24 03/21/24 15:51 20:28 06:02 WBC 12.9 H RBC 4.91 Hgb 14.7 Hct 42.9 MCV 87.4 MCH 29.9 MCHC 34.3 RDW 13.8 Plt Count 220 MPV 12.2 Immature Gran % (Auto) Neut % (Auto) Lymph % (Auto) [place] % (Auto) Eos % (Auto) Baso % (Auto) Lymph # (Auto) [place] # (Auto) Eos # (Auto) Baso # (Auto) Abs Immat Gran (auto) Absolute Neuts (auto) Absolute Nucleated RBC 0.000 Nucleated RBC % (auto) 0.0 Smear Tech's Comments PT INR Sodium 141 Potassium 3.6 Chloride 110 H Carbon Dioxide 22 Anion Gap 13 BUN 25 H Creatinine 1.09 Estim Creat Clear Calc 67.8 Estimated GFR > 60 POC Glucose 143 H 127 H Random Glucose 113 Calcium 9.5 Magnesium Total Bilirubin AST ALT Alkaline Phosphatase Troponin I High Sens B-Natriuretic Peptide Total Protein Albumin Lipase 03/21/24 03/21/24 03/21/24 06:54 10:52 16:27 WBC RBC Hgb Hct MCV MCH MCHC RDW Plt Count MPV Immature Gran % (Auto) Neut % (Auto) Lymph % (Auto) [place] % (Auto) Eos % (Auto) Baso % (Auto) Lymph # (Auto) [place] # (Auto) Eos # (Auto) Baso # (Auto) Abs Immat Gran (auto) Absolute Neuts (auto) Absolute Nucleated RBC Nucleated RBC % (auto) Smear Tech's Comments PT INR Sodium Potassium Chloride Carbon Dioxide Anion Gap BUN Creatinine Estim Creat Clear Calc Estimated GFR POC Glucose 104 126 H 100 Random Glucose Calcium Magnesium Total Bilirubin AST ALT Alkaline Phosphatase Troponin I High Sens B-Natriuretic Peptide Total Protein Albumin Lipase 03/21/24 03/22/24 03/22/24 20:07 06:20 07:52 WBC 8.8 RBC 5.12 Hgb 15.4 Hct 44.8 MCV 87.5 MCH 30.1 MCHC 34.4 RDW 13.8 Plt Count 208 MPV 12.2 Immature Gran % (Auto) Neut % (Auto) Lymph % (Auto) [place] % (Auto) Eos % (Auto) Baso % (Auto) Lymph # (Auto) [place] # (Auto) Eos # (Auto) Baso # (Auto) Abs Immat Gran (auto) Absolute Neuts (auto) Absolute Nucleated RBC 0.000 Nucleated RBC % (auto) 0.0 Smear Tech's Comments PT INR Sodium 143 Potassium 3.8 Chloride 111 H Carbon Dioxide 24 Anion Gap 12 BUN 25 H Creatinine 1.06 Estim Creat Clear Calc 69.7 Estimated GFR > 60 POC Glucose 99 107 Random Glucose 104 Calcium 9.2 Magnesium Total Bilirubin AST ALT Alkaline Phosphatase Troponin I High Sens B-Natriuretic Peptide Total Protein Albumin Lipase 03/22/24 03/22/24 03/22/24 11:35 16:23 21:02 WBC RBC Hgb Hct MCV MCH MCHC RDW Plt Count MPV Immature Gran % (Auto) Neut % (Auto) Lymph % (Auto) [place] % (Auto) Eos % (Auto) Baso % (Auto) Lymph # (Auto) [place] # (Auto) Eos # (Auto) Baso # (Auto) Abs Immat Gran (auto) Absolute Neuts (auto) Absolute Nucleated RBC Nucleated RBC % (auto) Smear Tech's Comments PT INR Sodium Potassium Chloride Carbon Dioxide Anion Gap BUN Creatinine Estim Creat Clear Calc Estimated GFR POC Glucose 91 118 H 104 Random Glucose Calcium Magnesium Total Bilirubin AST ALT Alkaline Phosphatase Troponin I High Sens B-Natriuretic Peptide Total Protein Albumin Lipase 03/23/24 03/23/24 06:00 07:16 WBC RBC Hgb Hct MCV MCH MCHC RDW Plt Count MPV Immature Gran % (Auto) Neut % (Auto) Lymph % (Auto) [place] % (Auto) Eos % (Auto) Baso % (Auto) Lymph # (Auto) [place] # (Auto) Eos # (Auto) Baso # (Auto) Abs Immat Gran (auto) Absolute Neuts (auto) Absolute Nucleated RBC Nucleated RBC % (auto) Smear Tech's Comments PT INR Sodium 142 Potassium 3.7 Chloride 111 H Carbon Dioxide 22 Anion Gap 13 BUN 21 H Creatinine 0.97 Estim Creat Clear Calc 76.2 Estimated GFR > 60 POC Glucose 113 Random Glucose 108 Calcium 9.3 Magnesium Total Bilirubin AST ALT Alkaline Phosphatase Troponin I High Sens B-Natriuretic Peptide 219 H Total Protein Albumin Lipase Airway Mallampati Class: III TM Dist: >3cm Neck ROM: Full Heart: Irregular Lungs: CTA Assessment and Plan Assessment Anesthesia Assessment: Anesthesia Plan Discussed Final Anesthetic Review History of Problems with Anesthesia: No NPO: Yes ASA Class: III and Emergency Final Preanesthetic Review: Meds/Allgs Chart Reviewed, Consent Obtained/Reviewed and Anes Risks/Benef Reviewed Patient Risk: Intermediate Procedure Risk: Intermediate Anesthetic Plan Anesthetic Plan: GA Disposition: Standard PACU
[2024-03-23] MEDS: Amiodarone/Dextrose 150 MG/100 ML PLAST..BAG 600 MG IV (11:51)
[2024-03-23 12:49] LABS: Glucose, Whole Blood 118 mg/dL (60-115)
[2024-03-23] MEDS: Amiodarone HCL 900 MG in 0.9 % Sodium Chloride 500 ML 34.53 MG IVCONT (13:01)
--- NOTE | 2024-03-23 13:19 | PM.PNCARD ---
Subjective Subjective Date of Service: 03/23/24 Principal diagnosis: Acute CHF, atrial fibrillation. Interval history: Patient status post ROSEMARY guided cardioversion which showed severely reduced LV EF about 10%. Converted to sinus rhythm. No other cardiac symptoms. Intraoperative really had low blood pressure which responded well to vasoconstrictive therapy. Post cardioversion feeling well Review of Systems Constitutional: Reports no additional constitutional complaints Cardiovascular: Reports rapid heart rate, Denies lightheadedness, Denies Loss of Consciousness and Denies dyspnea Respiratory: Reports no additional respiratory complaints and Denies dyspnea Gastrointestinal: Reports no additional gastrointestinal complaints Musculoskeletal: Reports no additional musculoskeletal complaints Reports system reviewed and no additional complaints, except as documented Physical Exam Vital Signs: Last Vital Signs Temp 97.6 F 03/23/24 12:48 Pulse 64 03/23/24 12:48 Resp 20 03/23/24 12:48 BP 96/62 03/23/24 12:48 Pulse Ox 95 03/23/24 12:48 O2 Del Method Nasal Cannula 03/23/24 12:48 O2 Flow Rate 2 03/23/24 12:48 BMI result Body Mass Index 38.5 Const General: cooperative, comfortable and no acute distress Nutritional Appearance: obese Orientation/consciousness: patient oriented x3 Neck Neck: Yes trachea midline, Yes supple and Yes no JVD Resp Effort & Inspection: normal respiratory effort Auscultation: clear to auscultation bilaterally Cardio Jugular venous distension: no JVD Palpation: abnormal PMI displaced PMI Rate: regular rate Rhythm: regular rhythm Heart sounds: S1 normal heart sound present, S2 normal heart sound present, no click, no gallops, no murmurs and no rubs GI Auscultation: normal bowel sounds Skin General skin exam: no rashes or lesions noted Neuro General: patient oriented x3 and no focal motor deficits Extrem General: Yes no clubbing, cyanosis or edema Objective Labs and Meds 03/22/24 06:20 03/23/24 06:00 Lab results: Laboratory Results - last 24 hr 03/22/24 03/22/24 03/23/24 16:23 21:02 06:00 Sodium 142 Potassium 3.7 Chloride 111 H Carbon Dioxide 22 Anion Gap 13 BUN 21 H Creatinine 0.97 Estim Creat Clear Calc 76.2 Estimated GFR > 60 POC Glucose 118 H 104 Random Glucose 108 Calcium 9.3 B-Natriuretic Peptide 219 H 03/23/24 03/23/24 07:16 12:42 Sodium Potassium Chloride Carbon Dioxide Anion Gap BUN Creatinine Estim Creat Clear Calc Estimated GFR POC Glucose 113 118 H Random Glucose Calcium B-Natriuretic Peptide Progress Note: A&P Assessment and plan (1) Atrial fibrillation: Status: Acute Assessment and Plan: New onset atrial fibrillation with further worsening of LVEF status post ROSEMARY guided cardioversion with no evidence of intracardiac thrombus. Will need rhythm control approach in the long run. Will need sleep apnea workup. Will start on amiodarone drip with loading. Continue full oral anticoagulation with Eliquis. (2) Acute on chronic systolic CHF (congestive heart failure): Status: Acute Assessment and Plan: Acute systolic heart failure with further worsening of LV ejection fraction most likely tachycardia mediated. Question underlying non compaction cardiomyopathy. Can you current neurohormonal modulation. Continue current p.o. diuretics. CHF management was discussed. Will need outpatient sleep study. Will continue to follow with you Time Spent With Patient Time: Total time managing care of this patient today ____ minutes. Progress Note: Quality Stroke Does the patient have a stroke diagnosis?: No Procedures Date of Service Date of Service: 03/23/24
[2024-03-23 16:16] LABS: Glucose, Whole Blood 164 mg/dL (60-115)
[2024-03-23] MEDS: Insulin Lispro 100 UNIT/ML 3 ML VIAL SUBCUT (16:32)
[2024-03-23] MEDS: Cyclobenzaprine HCl 10 MG TABLET PO (20:05)
[2024-03-23 21:16] LABS: Glucose, Whole Blood 82 mg/dL (60-115)
[2024-03-24 03:26] VITALS: BP 105/67; PULSE 70; RESP 20; TEMP 36.4; O2SAT 93
[2024-03-24] MEDS: Omeprazole 40 MG CAPSULE.DR PO (05:22)
[2024-03-24 06:58] LABS: Anion Gap 10 (12-20); Blood Urea Nitrogen 20 mg/dL (9-16); Calcium 9.2 mg/dL (8.4-10.2); Carbon Dioxide 25 mmol/L (22-29); Chloride 109 mmol/L (96-108); Creatinine Clr Calc Pharmacy 65.9; Estimated Glomerular Filt Rate > 60; Glucose Random 95 mg/dL (60-115); Potassium 3.8 mmol/L (3.3-5.1); Sodium 140 mmol/L (135-145)
[2024-03-24 07:30] VITALS: BP 111/78; PULSE 71; RESP 20; TEMP 36.7; O2SAT 94
[2024-03-24 07:43] LABS: Glucose, Whole Blood 102 mg/dL (60-115)
--- NOTE | 2024-03-24 07:50 | HE.PHANOTE ---
CHANGE IV DOXYCYCLINE TO PO DOSING PER PROTOCOL OK PER DR CAMP
--- NOTE | 2024-03-24 08:08 | HO.POSTANES ---
Post Anesthesia Evaluation Post Anesthesia Evaluation Date of Service: 03/23/24 Vital Signs: Vital Signs Temp Pulse Resp BP Pulse Ox O2 Del Method 03/24/24 07:30 98.0 F 71 20 111/78 94 Room Air 03/24/24 03:26 97.5 F 70 20 105/67 93 Room Air 03/23/24 23:26 97.6 F 70 18 95/68 93 Room Air Anesthesia: General Endotracheal-GETA Mental Status: Awake Pain Control: Satisfactory Nausea/Vomiting: None Hydration: Adequate Anesthesia-Related Issues: No Anes. Related Issues
--- NOTE | 2024-03-24 08:09 | HO.POSTANES ---
Post Anesthesia Evaluation Post Anesthesia Evaluation Date of Service: 03/24/24 Vital Signs: Vital Signs Temp Pulse Resp BP Pulse Ox O2 Del Method 03/24/24 07:30 98.0 F 71 20 111/78 94 Room Air 03/24/24 03:26 97.5 F 70 20 105/67 93 Room Air 03/23/24 23:26 97.6 F 70 18 95/68 93 Room Air Anesthesia: General Endotracheal-GETA Mental Status: Awake Pain Control: Satisfactory Nausea/Vomiting: None Hydration: Adequate Anesthesia-Related Issues: No Anes. Related Issues
[2024-03-24] MEDS: Metoprolol Succinate ER 100 MG TAB.ER.24H PO (09:55)
[2024-03-24] MEDS: Doxycycline Monohydrate 100 MG CAPSULE PO (09:55)
[2024-03-24] MEDS: Apixaban 5 MG TABLET PO (09:55)
[2024-03-24] MEDS: Atorvastatin Calcium 80 MG TABLET PO (09:55)
[2024-03-24] MEDS: Sacubitril/Valsartan 49/51 1 TAB TABLET PO (09:55)
[2024-03-24] MEDS: Sertraline HCL 50 MG TABLET PO (09:55)
[2024-03-24] MEDS: Loratadine 10 MG TABLET PO (09:55)
[2024-03-24] MEDS: Furosemide 40 MG TABLET PO (09:55)
[2024-03-24] MEDS: Amiodarone HCL 200 MG TABLET 400 MG PO (10:32)
--- NOTE | 2024-03-24 10:40 | P.DS_ITS ---
DS: Providers Provider Date of Service: 03/24/24 Date of admission: 03/19/24 19:49 Primary care physician: Gina Le MD Consults: 03/19/24 20:12 Consult to Cardiology Routine Consulting Provider: [facility] Reason for consultation: Acute on chronic systolic CHF Has provider been notified: Yes DS: Diagnosis Discharge Diagnosis (1) Acute on chronic systolic CHF (congestive heart failure): Status: Acute (2) Alcohol use: Status: Acute (3) Atrial fibrillation with rapid ventricular response: Status: Acute DS: Summary Hospital Course Hospital Course: Admission note HPI Royal Glover is a 63 years old man with past medical history significant for HFrEF (echo Sep 2022 EF 20-25 %), atrial fibrillation ??on Eliquis, type 2 diabetes mellitus on Jardiance, hyperlipidemia, GERD and essential hypertension presents to the emergency department complaining worsening shortness of breath associated with productive cough of clear sputum over the last couple of days. Shortness of breath worse with exertion and upon laying flat in bed. He does have chest tightness. Denies wheezing chills. Denies headache, sore throat, dizziness, palpitations or leg swelling. He denied any acute gastrointestinal or genitourinary symptoms. About 10 days ago the patient was in the emergency department for similar symptoms was considered to have bronchitis for which he completed a course of prednisone and cepodoxime. He denied tobacco smoking, vaping, alcohol abuse or illicit drug use. February 28, 2024 - evaluated by ferryboat deckhand: Consider patient is not a candidate for EDITOR DEPARTMENT however patient is a candidate for primary prevention ICD. Patient will be evaluated for atrial fibrillation burden and whether he has tachycardia induced cardiomyopathy before making a decision on ICD. In the ED, he was found to have tachycardia consistent with rapid atrial fibrillation. Other vital signs are normal. Blood work showed normal CBC. There are no electrolyte imbalances. BNP 602 which is similar to prior from last month. CXR showed pulmonary vascular congestion but no overt pulmonary edema or focal consolidations. He has a showed fibrillation with rapid ventricular response heart rate, 126 beats per minutes, intermittent color conduction block and PVCs. Hospital course Acute on chronic systolic congestive heart failure with component of acute bronchitis treated with IV VLasix along with his home medications of Entresto. MEtoprolol XL as he was seen by cardiology who recommended to continue with lasix upon discharge, watch fluid intake and follow up as outpatient as he has plans for placement of ICD as outpatient and will advocate for dual chamber device. Had ROSEMARY done with CV showing low EF with 10-15% with dilated LV and mod MR. small PFO. He was noticed to new onset atrial fibrillation with rapid ventricular response. rate was partially controlled with Metoprolol. Had ROSEMARY with cardioversion and converted back to Sinus rhythm. loaded with IV Amiodarone and remained in Sinus overnight. To be discharged home on Amiodarone and Metoprolol. Started on Eliquis as blood thinner. For Hx Alcohol abuse He was discussed complete abstinence from alcohol. Discharge plan Start Amiodarone 400 mg two time a day for 2 weeks then change to 200 mg once daily Eliquis 5 mg two time a day Continue Metoprolol Watch diet; low sodium, decrease fluids intake and monitor weight at home Follow with cardiology as outpatient Time Attestation Discharge Coordination Time (in mins): 38 Quality: Safe Use of Opioids Does Pt have an Active Cancer Diagnosis on the Problem List?: No Quality: Stroke Does the patient have a stroke diagnosis?: No Physical Exam Vital Signs: Vital Signs: Last Vital Signs Temp 98.0 F 03/24/24 07:30 Pulse 71 03/24/24 07:30 Resp 20 03/24/24 07:30 BP 111/78 03/24/24 07:30 Pulse Ox 94 03/24/24 07:30 O2 Del Method Room Air 03/24/24 07:30 O2 Flow Rate 2 03/23/24 12:48 BMI result Body Mass Index 38.5 Const: Other: Constitutional : Awake, interactive, not in distress Neck : Normal inspection, Supple Cardiovascular : regular , no JVP, trace lower extremity edema Respiratory : good bilateral air entry, no crackles, wheezes or rhonchi Gastrointestinal: soft, lax, Normal bowel sounds, Non tender Skin : Warm, Dry Neurological : Alert & oriented x3, No focal deficit DS: Data Data Completed and Pending Labs on day of discharge: Laboratory Results - last 24 hr 03/23/24 03/23/24 03/23/24 12:42 16:11 20:34 Hold Purple Top Sodium Potassium Chloride Carbon Dioxide Anion Gap BUN Creatinine Estim Creat Clear Calc Estimated GFR POC Glucose 118 H 164 H 82 Random Glucose Calcium 08/11/24 08/11/24 06:03 07:31 Hold Purple Top SEE NOTE Sodium 140 Potassium 3.8 Chloride 109 H Carbon Dioxide 25 Anion Gap 10 L BUN 20 H Creatinine 1.12 Estim Creat Clear Calc 65.9 Estimated GFR > 60 POC Glucose 102 Random Glucose 95 Calcium 9.2 Imaging Chest x-ray: Radiologist's impression: ITS Impressions Chest X-Ray 03/19/24 16:13 IMPRESSION: Cardiomegaly with pulmonary vascular congestion. No overt pulmonary edema. No focal consolidation. Discharge Plan Discharge Anticipated Discharge Date/Time: 03/24/24 10:34 Patient Disposition: Home, Self-Care Discharge Diagnosis: New onset atrial fibrillation Heart failure Referrals: Gina Davey MD [Primary Care Provider] - 1 Week Discharge Medications: New amiodarone 200 mg Tablet 400 mg PO BID Qty: 42 0RF Eliquis 5 mg Tablet 5 mg PO BID Qty: 180 0RF amiodarone 200 mg tablet 200 mg PO DAILY Qty: 90 0RF Continued atorvastatin 80 mg tablet 80 mg PO DAILY Qty: 90 3RF Jardiance 10 mg tablet 10 mg PO DAILY Qty: 30 6RF trazodone 100 mg tablet 200 mg PO BEDTIME metoprolol succinate 50 mg tablet extended release 24 hr 100 mg PO DAILY omeprazole 40 mg capsule,delayed release(DR/EC) 40 mg PO DAILY@0630 fluticasone propionate [Flonase Allergy Relief] 50 mcg/actuation spray,suspension 1 spray intranasal DAILY PRN (Reason: Allergy Symptoms) Rx Instructions: administer into each nostril cyclobenzaprine 10 mg tablet 10 mg PO BEDTIME Qty: 14 0RF (DME) blood-glucose meter [OneTouch Ultra2 Meter] [facility] [place] See Rx Instructions .Route Qty: 1 0RF Rx Instructions: As directed (DME) OneTouch Ultra Test Strip See Rx Instructions .Route Qty: 100 2RF Rx Instructions: Use 1 test strip once a day (DME) lancets [OneTouch UltraSoft 2 Lancet] 30 gauge misc See Rx Instructions .Route Qty: 100 2RF Rx Instructions: Use 1 lancet once a day loratadine 10 mg tablet 10 mg PO DAILY 10 Days Qty: 10 0RF (DME) lancets [FreeStyle Lancets] 28 gauge misc See Rx Instructions .Route Qty: 100 3RF Rx Instructions: Use 1 lancet once a day Entresto 49-51 mg tablet 1 tab PO BID Qty: 180 3RF sertraline 50 mg tablet 50 mg PO DAILY furosemide 40 mg tablet 40 mg PO DAILY Qty: 90 3RF Discontinued ibuprofen 800 mg tablet 800 mg PO DAILY Discharge Orders: Discharge Order (Routine); Ordered 03/24/24 Ordered By: Dilma Kim Diet: Low salt diet Activity on Discharge: As tolerated Stand Alone Forms: Patient Portal Discharge page Print Language: American Care Plan Goals: Start Amiodarone 400 mg two time a day for 2 weeks then change to 200 mg once daily Eliquis 5 mg two time a day Continue Metoprolol Watch diet; low sodium, decrease fluids intake and monitor weight at home Follow with cardiology as outpatient Health Concerns: Read below Plan of Treatment: Read below Assessment: Read below
--- NOTE | 2024-03-24 11:28 | MHC.CM.PN ---
Second IMM 03/24/24, pt has been medically cleared for DC, he will go home via family transport, plan is self care.
--- NOTE | 2024-03-24 11:41 | PM.PNCARD ---
Subjective Subjective Date of Service: 03/24/24 Principal diagnosis: Acute CHF, atrial fibrillation. Interval history: Patient status post ROSEMARY guided cardioversion. Doing well. Feeling a lot better. Remaining in sinus rhythm. Currently on amiodarone. No heart failure symptoms. Review of Systems Constitutional: Reports no additional constitutional complaints Physical Exam Vital Signs: Last Vital Signs Temp 98.0 F 03/24/24 07:30 Pulse 71 03/24/24 07:30 Resp 20 03/24/24 07:30 BP 111/78 03/24/24 07:30 Pulse Ox 94 03/24/24 07:30 O2 Del Method Room Air 03/24/24 07:30 O2 Flow Rate 2 03/23/24 12:48 BMI result Body Mass Index 38.5 Const General: cooperative, comfortable and no acute distress Nutritional Appearance: obese Orientation/consciousness: patient oriented x3 Neck Neck: Yes trachea midline, Yes supple and Yes no JVD Resp Effort & Inspection: normal respiratory effort Auscultation: clear to auscultation bilaterally Cardio Jugular venous distension: no JVD Palpation: abnormal PMI displaced PMI Rate: regular rate Rhythm: regular rhythm Heart sounds: S1 normal heart sound present, S2 normal heart sound present, no click, no gallops, no murmurs and no rubs GI Auscultation: normal bowel sounds Skin General skin exam: no rashes or lesions noted Neuro General: patient oriented x3 and no focal motor deficits Extrem General: Yes no clubbing, cyanosis or edema Objective Labs and Meds 03/22/24 06:20 03/24/24 06:03 Lab results: Laboratory Results - last 24 hr 03/23/24 03/23/24 03/23/24 12:42 16:11 20:34 Hold Purple Top Sodium Potassium Chloride Carbon Dioxide Anion Gap BUN Creatinine Estim Creat Clear Calc Estimated GFR POC Glucose 118 H 164 H 82 Random Glucose Calcium 03/24/24 03/24/24 06:03 07:31 Hold Purple Top SEE NOTE Sodium 140 Potassium 3.8 Chloride 109 H Carbon Dioxide 25 Anion Gap 10 L BUN 20 H Creatinine 1.12 Estim Creat Clear Calc 65.9 Estimated GFR > 60 POC Glucose 102 Random Glucose 95 Calcium 9.2 Progress Note: A&P Assessment and plan (1) Paroxysmal atrial fibrillation: Status: Acute Assessment and Plan: Patient status post ROSEMARY guided cardioversion. New onset atrial fibrillation. Require cardioversion. Would agree with amiodarone loading 400 mg b.i.d. for 14 days and followed by 200 mg daily. Continue full oral anticoagulation Eliquis. Will require lifelong oral anticoagulation therapy. Patient can be discharged today. Will set up for follow-up (2) Acute on chronic systolic CHF (congestive heart failure): Status: Acute Assessment and Plan: Acute congestive heart failure, related to atrial fibrillation. Further worsening of LVEF by ROSEMARY most likely due to acute atrial fibrillation. Should improve to his baseline severe LV systolic dysfunction. Question noncompaction. Consider cardiac MRI. Continue full neurohormonal modulation as above. Continue rhythm control approach as above. Continue current diuretic dose heart failure management discussed. Will set up for follow-up in 4 weeks' time at which point time he probably should also undergo dual-chamber ICD placement for primary prevention given his atrial fibrillation and severe persistent LV systolic dysfunction. Will follow up as outpatient. Time Spent With Patient Time: Total time managing care of this patient today ____ minutes. Progress Note: Quality Stroke Does the patient have a stroke diagnosis?: No Procedures Date of Service Date of Service: 03/24/24
--- NOTE | 2024-05-25 11:19 | P.PNCAR_ITS ---
Cardioversion Procedure Note Cardioversion Date of Procedure: 03/23/2024 Ordering Provider: Myself Performing Provider: Myself Indication for Procedure: Persistent atrial fibrillation with heart failure with reduced ejection fraction Pre-Op Diagnosis: Same Post-Op Diagnosis: Normal sinus rhythm with heart failure Performed with Transesophageal Echo: Yes ROSEMARY findings (if ROSEMARY Performed): Dictated separately History: See the consult note Consent: Verbal and Written consent was obtained from the patient before starting. The patient was made aware of the risk of synchronized cardioversion including benefits and alternatives Procedure: After consent obtained, cardioversion pads were attached in anteroposterior configuration and the patient was sedated by the anesthesia team. Once adequate sedation achieved, patient was delivered 200 joules of biphasic synchronized energy in anteroposterior configuration. Complications: None Impression: Successful conversion to sinus rhythm Recommendations: 1. Start amiodarone loading 400 mg b.i.d. to maintain rhythm 2. Continue full oral anticoagulation 3. Continue with guideline based medical therapy for heart failure
== END 2024-03-24 11:26 | disposition home or self-care (01) | DRG 308 ==
LOC: HO.ED 18:03 → HO.EDOVER 19:58 → HO.IMC 03-20 00:03
PROVIDERS: Internal Medicine Cardiovascular Disease; Nurse Practitioner Family; Physician Assistant Medical; Admitting Provider Internal Medicine; Emergency Provider Internal Medicine; PCP Internal Medicine; Visit Provider Student in an Organized Health Care Education/Training Program
PROC: 5A2204Z Restoration of Cardiac Rhythm, Single (ICD-10-PCS; CPT 93312; principal; 2024-03-23 10:00)
PROC: 5A2204Z Restoration of Cardiac Rhythm, Single (ICD-10-PCS; 2024-03-23 10:00)
DX: I48.19 Other persistent atrial fibrillation (principal); I50.23 Acute on chronic systolic (congestive) heart failure; F10.10 Alcohol abuse, uncomplicated; I11.0 Hypertensive heart disease with heart failure; J20.9 Acute bronchitis, unspecified; E66.9 Obesity, unspecified; Z68.38 Body mass index [BMI] 38.0-38.9, adult; Z87.891 Personal history of nicotine dependence; Z79.899 Other long term (current) drug therapy
CPT/HCPCS: 36415; 71046; 80048; 80053; 82947; 83690; 83735; 83880; 84484; 85025; 85027; 85610; 92960; 93005; 99285; J0282; J0283; J1940; J2704; J2919; J3010

== ENCOUNTER 2024-03-19 19:49 | Outpatient (BNV) | payer OTHER, SELFPAY | END 2024-03-23 09:33 | PROVIDERS: Admitting Provider Internal Medicine; Emergency Provider Internal Medicine; PCP Internal Medicine; Visit Provider Internal Medicine Cardiovascular Disease | DX: Q21.12 Patent foramen ovale (principal); I34.0 Nonrheumatic mitral (valve) insufficiency | CPT/HCPCS: 76376; 93315; 93320; 93325 ==

== ENCOUNTER → 2024-03-19 19:49 | Outpatient (BNV) | payer OTHER, SELFPAY | PROVIDERS: Admitting Provider Internal Medicine; Emergency Provider Internal Medicine; PCP Internal Medicine; Visit Provider Internal Medicine | DX: I50.23 Acute on chronic systolic (congestive) heart failure (principal); Z78.9 Other specified health status; I48.91 Unspecified atrial fibrillation | CPT/HCPCS: 99223; 99232; 99239 ==

== ENCOUNTER → 2024-03-19 19:49 | Outpatient (BNV) | payer OTHER, SELFPAY | PROVIDERS: Admitting Provider Internal Medicine; Emergency Provider Internal Medicine; PCP Internal Medicine; Visit Provider Internal Medicine Cardiovascular Disease | DX: I48.91 Unspecified atrial fibrillation (principal) | CPT/HCPCS: 92960; 93010; 99222; 99233 ==

== ENCOUNTER 2024-03-25 16:52 | Outpatient (AMB) | payer OTHER, SELFPAY ==
--- NOTE | 2024-03-25 17:02 | MHC.PC.OV ---
Vital Signs 03/25/24 17:07 Height 5 ft 2 in Weight 203 lb BMI 37.1 BP 110/70 Blood Pressure Location Lt brachial Position Sitting Pulse 63 Pulse Source Pulse Oximeter Pulse Oximetry (%) 96 Oxygen Delivery Method Room Air Intake Visit Reasons: DM Manager Of Business Required: No Accompanied by: Spouse Allergies No Known Allergies [No Known Allergies*] Allergy (Verified 03/25/24 17:17) Medication List - Last Reconciled 03/25/24 by Gina Le MD amiodarone 400 mg (2 x 200 mg) PO BID amiodarone 200 mg PO DAILY apixaban (Eliquis) 5 mg PO BID atorvastatin 80 mg PO DAILY blood sugar diagnostic (myOrderuch Ultra Test strips) Use 1 test strip once a day blood-glucose meter (myOrderuch Ultra2 Meter) As directed cyclobenzaprine 10 mg PO BEDTIME empagliflozin (Jardiance) 10 mg PO DAILY fluticasone propionate 50 mcg/actuation (Flonase Allergy Relief) 1 spray intranasal DAILY PRN furosemide 40 mg PO DAILY lancets (FreeStyle Lancets) Use 1 lancet once a day lancets ([employer] Pty [employer]TDTouch UltraSoft 2 Lancet) Use 1 lancet once a day loratadine 10 mg PO DAILY 10 days metoprolol succinate ER 100 mg PO DAILY omeprazole 40 mg PO DAILY@0630 sacubitril-valsartan 49-51 mg (Entresto) 1 tab PO BID sertraline 50 mg PO DAILY trazodone 200 mg PO BEDTIME Tobacco use date assessed: 09/11/23 Fall risk assessment: No Falls in past year Last assessed Fall Risk: 03/25/24 Dental Screening Dental Screen Date: 09/11/23 HPI TCM TCM Information Date of Discharge 03/24/24 Discharged From [facility] HPI Comments History of Present Illness Details This is a 63-year-old male with diabetes mellitus type 2, hyperlipidemia, chronic systolic congestive heart failure and atrial fibrillation now with rapid ventricular response that comes today accompanied by girlfriend for hospital discharge follow-up with discharge date 03/24/2024 due to acute on chronic congestive heart failure. He said he was feeling short of breath and was found to have pleural effusion and decompensated heart failure. Echocardiogram showed ejection fraction 10-15%. Was treated with Lasix and now feels markedly improved. Blood glucose well controlled. Lipid panel will be ordered. Was started on amiodarone and after amiodarone will have a defibrillator. Still has slight leg swelling. 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 pylori) GERD (gastroesophageal reflux disease) Breast pain Dyslipidemia Essential hypertension Obese Abdominal mass Insomnia Surgical History H/O abdominal surgery History of colonoscopy Family History Father No problems noted. Mother Kidney failure Social History (Updated 03/25/24 @ 17:25 by Gina Le MD) Household Members: None Housing: Apartment Do you presently have visiting nurse or other home services: No Alcohol intake: former Patient Tobacco Use Status: Former Tobacco user Tobacco use type: Cigarette e-Cigarette/Vaping Use: Never Used Second Hand Smoke Exposure: No service: No Current occupational status: retired Cognitive needs: No Hearing needs: No Vision needs: No Questionnaire Thrive Questionnaire Date Thrive assessed: 03/20/24 MIGUELINA-7 AMB Questionnaire MIGUELINA-7 Date MIGUELINA - 7 assessed: 09/11/23 Source: Developed by Drs. Elias Schilling, Barbie Teague, Flavio Calvin and colleagues, with an educational elroy from [employer]. Review of Systems Const All systems reviewed & are unremarkable except as noted in HPI and below Card Denies chest pain at rest, Denies chest pain with activity, Denies edema, Denies irregular heart rhythm, Denies claudication, Denies dyspnea, Denies dyspnea on exertion, Denies orthopnea, Denies paroxysmal nocturnal dyspnea and Denies slow heart rate Resp Denies cough, Denies dyspnea and Denies dyspnea on exertion GI Denies abdominal pain, Denies change in bowel habits, Denies excessive flatus, Denies nausea and Denies vomiting Denies urinary hesitancy, Denies urinary incontinence and Denies urinary urgency Physical exam (Primary Care) Vital Signs: Last Vital Signs Pulse 63 03/25/24 17:07 BP 110/70 08/12/24 17:07 Pulse Ox 96 03/25/24 17:07 Oxygen Delivery Method Room Air 03/25/24 17:07 BMI result Body Mass Index 37.1 BMI Assessment/Plan discussion: High BMI High, discussed plan: lifestyle, weight reduction, dietary and physical activity Tobacco/Smoking Status: Tobacco use Status Tobacco use date assessed 09/11/23 03/25/24 17:03 Patient Tobacco Use Status Former Tobacco user 03/25/24 17:25 Tobacco use type Cigarette 03/25/24 17:25 e-Cigarette/Vaping Use Never Used 03/25/24 17:25 Thrive Assessment: Date of Thrive Assessment Date Thrive assessed 03/20/24 03/25/24 17:03 Resp Effort & Inspection: normal respiratory effort Auscultation: clear to auscultation bilaterally Cardio Jugular venous distension: no JVD Rate: regular rate Rhythm: regular rhythm Heart sounds: S1 normal heart sound present and S2 normal heart sound present Extrem General: Yes full ROM Right lower extremity: lower leg Details: pitting edema Details: 1+ Left lower extremity: lower leg Details: pitting edema Details: 1+ Assessment and Plan Assessment & Plan (1) Hospital discharge follow-up: Code(s): Z09 - Encounter for follow-up examination after completed treatment for conditions other than malignant neoplasm Plan: Discharge date 03/24/2024 due to acute on chronic congestive heart failure. Treated with Lasix. Feels markedly improved. Added amiodarone. (2) Atrial fibrillation with rapid ventricular response: Comment: New onset leading to heart failure, March 2024 Code(s): I48.91 - Unspecified atrial fibrillation Plan: Continue Eliquis. Start amiodarone. Defibrillator after amiodarone. The goal is heart rate control. Follow-up with Cardiology. (3) Chronic systolic heart failure: Code(s): I50.22 - Chronic systolic (congestive) heart failure Plan: Start amiodarone then defibrillator. The goal is to not gain 5 lb in a week. Follow-up with Cardiology. (4) Diabetes mellitus: Code(s): E11.9 - Type 2 diabetes mellitus without complications Qualifiers: Diabetes mellitus type: type 2 Diabetes mellitus long filler cigar roller machine insulin use: without retirement use Diabetes mellitus complication status: without complication Qualified Code(s): E11.9 - Type 2 diabetes mellitus without complications Plan: Continue Jardiance. A1c goal is equal or less than 7%. (5) Hyperlipidemia LDL goal <70: Code(s): E78.5 - Hyperlipidemia, unspecified Plan: Continue statins. Repeat lipid panel. LDL goal is less than 70. Orders: Orders Lipid Panel 4 Months E78.5 - Hyperlipidemia, unspecified, I48.0 - Paroxysmal atrial fibrillation Comprehensive [place]. Panel Fast 4 Months I48.0 - Paroxysmal atrial fibrillation Complete Blood Count Auto Diff 4 Months I48.0 - Paroxysmal atrial fibrillation NT-proBNP 4 Months I50.23 - Acute on chronic systolic (congestive) heart failure Coding Level of Care Code TCM Mod MDM <= 7 Days Diagnoses Hospital discharge follow-up Z09 Atrial fibrillation with rapid ventricular response I48.91 Chronic systolic heart failure I50.22 Type 2 diabetes mellitus without complication, without long-term current use of insulin E11.9 Diabetes mellitus type: type 2 Diabetes mellitus long filler cigar roller machine insulin use: without retirement use Diabetes mellitus complication status: without complication Hyperlipidemia LDL goal <70 E78.5 Time Spent (min) 26
[2024-03-25 17:07] VITALS: BP 110/70; PULSE 63; O2SAT 96; BMI 37.1
== END 2024-03-25 17:30 | disposition home or self-care (01) ==
PROVIDERS: PCP Internal Medicine; Visit Provider Internal Medicine
DX: I48.91 Unspecified atrial fibrillation (principal); I50.22 Chronic systolic (congestive) heart failure; E11.69 Type 2 diabetes mellitus with other specified complication; E78.5 Hyperlipidemia, unspecified; Z09 Encounter for follow-up examination after completed treatment for conditions other than malignant neoplasm
CPT/HCPCS: 99495

== ENCOUNTER → 2024-03-28 09:51 | Outpatient (REF) | payer OTHER, SELFPAY ==
--- NOTE | 2024-03-28 09:57 | HM_ITS ---
* Total monitoring time 3 days. * Underlying rhythm is atrial fibrillation. Average ventricular rate 79/Min. * Frequent ventricular ectopy with a burden of 2.6%. Very brief runs, up to 4 beats. Monomorphic. * No significant pauses or AV blocks. * No patient markers or diary events. MTDD
== END ==
LOC: HO.CARD 09:51
PROVIDERS: PCP Internal Medicine; Visit Provider Internal Medicine Cardiovascular Disease
DX: I48.0 Paroxysmal atrial fibrillation (principal); I50.23 Acute on chronic systolic (congestive) heart failure; F10.982 Alcohol use, unspecified with alcohol-induced sleep disorder; I42.8 Other cardiomyopathies; I51.9 Heart disease, unspecified
CPT/HCPCS: 93242

== ENCOUNTER → 2024-03-28 09:57 | Outpatient (BNV) | payer OTHER, SELFPAY | PROVIDERS: PCP Internal Medicine; Visit Provider Internal Medicine | DX: I48.91 Unspecified atrial fibrillation (principal) | CPT/HCPCS: 93244 ==

== ENCOUNTER 2024-04-17 12:10 | Outpatient (AMB) | payer OTHER, SELFPAY ==
[2024-04-17 12:53] VITALS: BP 110/62; PULSE 72; BMI 38.3
--- NOTE | 2024-04-17 12:53 | A.OFFVIS_ITS ---
Vital Signs 04/17/24 12:53 Height 5 ft 2 in Weight 209 lb 7.026 oz BMI 38.3 BP 110/62 Blood Pressure Location Lt brachial Position Sitting Pulse 72 Pulse Source Monitor Intake Visit Reasons: 4 wk f/up holter ok km Analytical Research Program Manager Required: Yes Analytical Research Program Manager Name: SERAFIN [id number] Allergies No Known Allergies [No Known Allergies*] Allergy (Verified 03/25/24 17:17) Medication List - Last Reconciled 04/17/24 by Jaxon Trevino MD amiodarone 200 mg PO DAILY apixaban (Eliquis) 5 mg PO BID atorvastatin 80 mg PO DAILY blood sugar diagnostic (OneTouch Ultra Test strips) Use 1 test strip once a day blood-glucose meter (OneTouch Ultra2 Meter) As directed cefdinir 300 mg PO BID furosemide 40 mg PO DAILY ibuprofen 800 mg PO TID lancets (FreeStyle Lancets) Use 1 lancet once a day lancets (OneTouch UltraSoft 2 Lancet) Use 1 lancet once a day metoprolol succinate ER 25 mg PO DAILY sacubitril-valsartan 24-26 mg (Entresto) 1 tab PO BID spironolactone 25 mg PO DAILY trazodone 200 mg PO BEDTIME HPI Comments Details: 63-year-old gentleman with NICM due to alcohol use. He stopped taking meds and his EF dropped to 20%. After discussion we resumed his meds and he has been compliant. Asymptomatic. His previous repeat echocardiography showed EF 30 35%. 04/17/2024: He is here for follow-up. He has background history of nonischemic cardiomyopathy likely due to alcohol use. It appears he has not stopped drinking till recently. He is saying he has completely stopped in the last 2 months. The is in the room and agrees with what he is saying. He had admission at [facility] with congestive heart failure and was in atrial fibrillation with rapid ventricular response. I have reviewed the strips and I am not sure whether he was in AFib or flutter. He was cardioverted with transesophageal echocardiogram and started on amiodarone and Eliquis. After that in the last week he also got admitted in hospital in [facility] while he was visiting his cousin. The limited information I see is that it was for acute exacerbation of heart failure. It appears his Entresto dose was decreased there to 24-26. His metoprolol was also decreased to 25 mg daily. Spironolactone 25 mg was added. He is denying any symptoms currently but EKGs showing atrial flutter with variable block currently. Discussing with him he has not been taking Eliquis twice a day and after taking it b.i.d. for a week he has decrease the dose to once a day. He is saying that this is what he was instructed before. 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 pylori) GERD (gastroesophageal reflux disease) Breast pain Dyslipidemia Essential hypertension Obese Abdominal mass Insomnia Surgical History H/O abdominal surgery History of colonoscopy Family History Father No problems noted. Mother Kidney failure Social History (Updated 03/25/24 @ 17:25 by Gina Le MD) Household Members: None Housing: Apartment Do you presently have visiting nurse or other home services: No Alcohol intake: former Patient Tobacco Use Status: Former Tobacco user Tobacco use type: Cigarette e-Cigarette/Vaping Use: Never Used Second Hand Smoke Exposure: No service: No Current occupational status: retired Cognitive needs: No Hearing needs: No Vision needs: No Review of Systems Const Denies weakness ENT Denies dizziness Card Denies chest pain, Denies chest pain with activity, Denies syncope, Denies rapid heart rate, Denies pedal edema, Denies edema, Denies leg edema, Denies lightheadedness, Denies palpitations, Denies dyspnea, Denies dyspnea on exertion and Denies orthopnea Resp Denies cough, Denies dyspnea and Denies dyspnea on exertion GI Denies hematochezia and Denies change in stool character Musc Denies abnormal gait, Denies muscle cramps, Denies muscle weakness, Denies numbness, Denies radiating pain into limb and Denies tingling Neuro Denies abnormal gait, Denies dizziness, Denies syncope, Denies numbness, Denies tingling and Denies weakness Endo Denies palpitations Physical Exam Vital Signs: Last Vital Signs Pulse 72 04/17/24 12:53 BP 110/62 04/17/24 12:53 BMI result Body Mass Index 38.3 GENERAL APPEARANCE: in no acute distress, well developed, well nourished. NECK/THYROID: no carotid bruit, no jugular venous distention. SKIN: no suspicious lesions, warm and dry. HEART: no murmurs, regular rate and rhythm, S1, S2 normal. LUNGS: clear to auscultation bilaterally. ABDOMEN: normal, bowel sounds present, soft, nontender, nondistended. EXTREMITIES: no edema. PERIPHERAL PULSES: equal. NEUROLOGIC: nonfocal, alert and oriented. PSYCH: mood/affect full range. Office Procedures EKG Details: Atrial flutter with variable block 72 beats per minute, normal axis, left bundle-branch block, QTC 473 milliseconds. QRS 136 milliseconds. [id number], Complete Quality Reporting (2019) Adult ([facility] 138/10/05/68) Smoking risk assessment performed?: Yes Patient Tobacco Use Status: Former Tobacco user Assessment & Plan Assessment & Plan (1) NICM (nonischemic cardiomyopathy): Comment: Clinically compensated Code(s): I42.8 - Other cardiomyopathies Category: Medical (2) Atrial flutter: Code(s): I48.92 - Unspecified atrial flutter Category: Medical Plan 63-year-old gentleman who is here for follow-up. Recent admission at [facility] and in [facility] for congestive heart failure. While he was at [place] he had atrial fibrillation and underwent ROSEMARY cardioversion and was started on amiodarone and apixaban. In [place] he was in congestive heart failure and his Lasix was increased to b.i.d.. He currently appears to be euvolemic. I have discussed with him about cardioversion. My initial plan was to do it next week but after learning that he has been taking apixaban once a day we have decided to do it in 4 weeks. He is going to increase the apixaban to 5 mg twice a day. In 4 weeks we will do cardioversion without ROSEMARY. He has stopped drinking completely. We can reassess his ejection fraction in few months and continue discussion for ICD placement. He may need ablation at the same time. Thank you for allowing me to participate in the care of your patient. Please feel free to contact me if you have any questions. Orders: Orders Cardioversion 4 Weeks I48.92 - Unspecified atrial flutter Medications: Changed From furosemide 40 mg PO DAILY 90 tabs 3RF To furosemide 40 mg PO BID 90 tabs 3RF Coding Level of Care Code Est Pt Level 5 (08514) Diagnoses NICM (nonischemic cardiomyopathy) I42.8 Atrial flutter I48.92 CPT Codes EKG - CPT: 37076-[id number], Complete ([id number])
== END 2024-04-17 13:44 | disposition home or self-care (01) ==
PROVIDERS: PCP Internal Medicine; Visit Provider Internal Medicine Cardiovascular Disease
DX: I48.92 Unspecified atrial flutter (principal); I42.8 Other cardiomyopathies
CPT/HCPCS: 93010; 99214

== ENCOUNTER → 2024-04-17 12:10 | Outpatient (BNVA) | payer OTHER, SELFPAY | PROVIDERS: PCP Internal Medicine; Visit Provider Internal Medicine Cardiovascular Disease | DX: I42.8 Other cardiomyopathies (principal); I48.92 Unspecified atrial flutter; R94.31 Abnormal electrocardiogram [ECG] [EKG]; I44.30 Unspecified atrioventricular block; I44.7 Left bundle-branch block, unspecified | CPT/HCPCS: 93005; 99212 ==

== ENCOUNTER 2024-05-06 | Outpatient (REF) | payer OTHER, SELFPAY | END 2024-05-06 00:01 | disposition home or self-care (01) | LOC: HO.LAB | PROVIDERS: PCP Internal Medicine; Visit Provider Urology | DX: R35.0 Frequency of micturition (principal) | CPT/HCPCS: 81003; 99202 ==

== ENCOUNTER 2024-05-06 14:52 | Outpatient (AMB) | payer OTHER, SELFPAY ==
--- NOTE | 2024-05-06 14:56 | MHC.OFFVIS ---
Intake Visit Reasons: pyelonephritis Intake Note: Patient is present for pyelonephritis Urology Medication:none Antibiotic Allergy:none Blood Thinner:eliquis Engineering Professor Required: Yes Engineering Professor Language: Real Estate Subagent Name: Kim [id number] Allergies No Known Allergies [No Known Allergies*] Allergy (Verified 05/30/24 13:17) HPI Comments Details: Royal is here for PROCUREMENT AGENT evaluation for pyelonephritis and BPH. He complains of urinary frequency during the daytime, the patient is on furosemide 40 mg twice a day, diuretics likely contributing to symptoms. He denies dysuria. 03/08/24--CTAP w/IV contrast: a wedge-shaped area of heterogeneous hypoattenuation within the anterior midpole measuring 4.8 x 2.9 cm. There is associated perinephric stranding which may represent acute pyelonephritis. Plan: Will start tamsulosin. Will check follow-up CT scan of the abdomen to recheck the kidney [facility] Medical History (Updated 06/16/24 @ 19:45 by Ro Robins MD) Persistent atrial fibrillation Congestive heart failure Atrial flutter Atrial fibrillation with rapid ventricular response Atrial fibrillation Alcohol use Hyperlipidemia LDL goal <70 Diabetes mellitus Chronic sore throat Colon perforation Foreign body in sigmoid colon Onychomycosis 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 pylori) GERD (gastroesophageal reflux disease) Breast pain Dyslipidemia Essential hypertension Obese Abdominal mass Insomnia Surgical History H/O abdominal surgery History of colonoscopy Family History Father No problems noted. Mother Kidney failure Social History Household Members: None Housing: Apartment Do you presently have visiting nurse or other home services: Yes (surgical oncologist services just set up; currently looking for a surgical oncologist) Alcohol intake: former Patient Tobacco Use Status: Former Tobacco user Tobacco use type: Cigarette e-Cigarette/Vaping Use: Never Used Second Hand Smoke Exposure: No service: No Current occupational status: retired Cognitive needs: No Hearing needs: No Vision needs: No Physical Exam Const General: healthy appearing, no acute distress and well developed Orientation/consciousness: patient oriented x3 HEENT Head: Yes normocephalic and Yes atraumatic Eyes Conjunctivae: conjunctivae normal Neck Neck: Yes normal visual inspection Chest Chest palpation & inspection: normal inspection of the chest Resp Effort & Inspection: normal respiratory effort Cardio Rate: regular rate GI Inspection: Yes normal to inspection Palpation (GI): Soft to palpation Neuro General: patient oriented x3 Psych Appearance: grossly normal Affect: normal affect Results AMB Urinalysis, Automated UA Leukoctes 0 Dami/uL Last Edit by Sandeep Agustin [facility] on 05/06/24 15:20 UA Nitrite Negative Last Edit by Sandeep Agustin [facility] on 05/06/24 15:20 UA Urobilinogen 0.2 mg/dL Last Edit by Sandeep Agustin [facility] on 05/06/24 15:20 UA Protein 0 mg/dL Last Edit by Sandeep Agustin [facility] on 05/06/24 15:20 UA pH 6.0 Last Edit by Sandeep Agustin [facility] on 05/06/24 15:20 UA Blood 0 Kenny/uL Last Edit by Sandeep Agustin [facility] on 05/06/24 15:20 UA Specific [place] 1.025 Last Edit by Sandeep Agustin [facility] on 05/06/24 15:20 UA Ketone Negative Last Edit by Sandeep Agustin [facility] on 05/06/24 15:20 UA Bilirubin 0 mg/dL Last Edit by Sandeep Agustin [facility] on 05/06/24 15:20 UA Glucose 0 mg/dL Last Edit by Sandeep Agustin [facility] on 05/06/24 15:20 Quality Reporting (2019) Adult ([facility] 138/10/05/68) Smoking risk assessment performed?: Yes Patient Tobacco Use Status: Former Tobacco user Results Reviewed Results Reviewed: Laboratory Last Values Urine pH (Auto) 6.0 05/06/24 15:19 Specific [place] (Auto) 1.025 05/06/24 15:19 Urine Protein (Auto) 0 mg/dL 05/06/24 15:19 Glucose (UA)(Auto) 0 mg/dL 05/06/24 15:19 Urine Ketones (Auto) Negative 05/06/24 15:19 Urine Blood (Auto) 0 Kenny/uL 05/06/24 15:19 Urine Nitrite (Auto) Negative 05/06/24 15:19 Urine Bilirubin (Auto) 0 mg/dL 05/06/24 15:19 Urine Urobilinogen (Auto) 0.2 mg/dL 05/06/24 15:19 Leukocyte Esterase (Auto) 0 Dami/uL 05/06/24 15:19 Date of Service: 03/08/24 CT ABDOMEN AND PELVIS WITH CONTRAST CLINICAL INFORMATION: Left lower quadrant pain. Nausea and vomiting. COMPARISON: None available. TECHNIQUE: Multidetector volumetric images were obtained from the superior aspect of the liver through the pubic symphysis following administration 85 mL of Omnipaque 350 intravenous contrast. Sagittal and coronal reformatted images were obtained on the technologist's workstation. Oral contrast: No This CT examination was performed using dose optimization techniques as appropriate, variously including the following: *Automated exposure control *Adjustment of mA and/or kV according to patient size (this includes techniques or standardized protocols for targeted exams where dose is matched to indication/reason for exam; i.e. extremities or head) *Use of iterative reconstruction technique DLP: 828 mGy-cm FINDINGS: LUNG BASES: Small to moderate bilateral pleural effusions, right greater than left. Cardiac enlargement. No pericardial effusion. LIVER, GALLBLADDER, AND BILIARY TREE: The liver is decreased in attenuation. No focal hepatic lesion or biliary ductal dilatation is present. The gallbladder is unremarkable with no evidence of radiopaque gallstones, gallbladder wall thickening, or obvious pericholecystic inflammatory changes. PANCREAS: Unremarkable. SPLEEN: Not enlarged. ADRENAL GLANDS: No adrenal mass. KIDNEYS AND URETERS: The kidneys enhance symmetrically. Midpole left renal cyst for which no further imaging follow-up is needed. There is a wedge-shaped area of heterogeneous hypoattenuation within the anterior midpole measuring 4.8 x 2.9 cm. There is associated perinephric stranding. There is probable cortical scarring lateral midpole of the right kidney. No hydronephrosis. BLADDER: Underdistended. GASTROINTESTINAL TRACT: Surgical anastomosis in the rectosigmoid colon. Scattered colonic diverticula. No small bowel obstruction. Appendix is within normal limits. ABDOMINAL WALL: No significant hernia is appreciated. LYMPH NODES: No bulky lymphadenopathy. VASCULAR: Normal caliber abdominal aorta. PELVIC VISCERA: Mild enlargement of the prostate gland. OSSEOUS STRUCTURES: No destructive bone lesions. IMPRESSION: There is a wedge-shaped area of heterogeneous hypoattenuation within the anterior midpole measuring 4.8 x 2.9 cm. There is associated perinephric stranding. This may represent acute pyelonephritis. Advise clinical correlation. Assessment & Plan Assessment & Plan (1) BPH loc w urin obs/LUTS: Code(s): N40.1 - Benign prostatic hyperplasia with lower urinary tract symptoms Category: Medical (2) History of pyelonephritis: Code(s): Z87.448 - Personal history of other diseases of urinary system Category: Medical (3) Abnormal finding on CT scan: Code(s): R93.89 - Abnormal findings on diagnostic imaging of other specified body structures Category: Medical Plan FU CT Abd. flomax Orders: Orders AMB Urinalysis Automated 05/06/24 Z13.9 - Encounter for screening, unspecified Medications: New tamsulosin (Flomax) 0.4 mg PO BEDTIME 30 caps 2RF Patient Instructions: The patient had an opportunity to ask questions regarding treatment plan. The patient expressed understanding and agreement with the above treatment plan. The patient is aware they should contact our office by phone for worsening of their current condition or the appearance of new symptoms. Compliance is encouraged with any medications and followup testing that is ordered. It is a privilege to be allowed the opportunity to participate in the urologic care of your patient. If you have any questions or concerns regarding treatment for the above conditions please do not hesitate to contact me. The office telephone contact is [phone]. This note is constructed in part using voice recognition software. While every effort has been made to ensure accuracy automotive parts counter person errors may have been included. Yours sincerely, Ro Robins MD Coding Level of Care Code New Pt Level 4 (75361) Diagnoses BPH loc w urin obs/LUTS N40.1 History of pyelonephritis Z87.[address] scan R93.89
== END 2024-05-06 15:49 | disposition home or self-care (01) ==
PROVIDERS: PCP Internal Medicine; Visit Provider Urology
DX: N40.1 Benign prostatic hyperplasia with lower urinary tract symptoms (principal); Z87.448 Personal history of other diseases of urinary system; R93.89 Abnormal findings on diagnostic imaging of other specified body structures
CPT/HCPCS: 99204

== ENCOUNTER 2024-05-24 13:24 | Inpatient (IN) | payer OTHER, SELFPAY ==
[2024-05-24] VITALS (7 sets, daily range): BP systolic 112–130; BP diastolic 80–91; PULSE 74–85; RESP 12–26; TEMP 36.2–36.6; O2SAT 93–96; BMI 38.1
--- NOTE | ~2024-05-24 | XR_ITS ---
EXAMINATION: XR CHEST CLINICAL INFORMATION: 63-year-old female with shortness of breath COMPARISON: March 19, 2020 TECHNIQUE: 2 views of the chest were obtained. FINDINGS: There is low lung volume bilaterally with vascular prominence and bibasilar atelectasis there is blunting of left costophrenic angle likely due to trace of pleural effusion. Heart is prominent XR/XR chest 2V IMPRESSION: Mild vascular congestion and bibasilar atelectasis. Trace of left pleural effusion. Electronically signed by: Terry Corona MD 05/24/2024 04:39 PM EDT
--- NOTE | 2024-05-24 13:31 | ED_ITS ---
HPI - SOB/Dyspnea General Chief Complaint: Upper Respiratory Symptoms Stated Complaint: Diff breathing Time Seen by Provider: 05/24/24 16:28 Source: patient, RN notes reviewed, old records reviewed and director housekeeping (Lee) History of Present Illness HPI Narrative: 63-year-old male who has a history of AFib, CHF, GERD, presents with a 2 day history dyspnea on exertion or orthopnea. Patient states that this is similar to previous episodes of a psych this. He is compliant with his medications. He has had decreased p.o. intake. Denies any fevers chills nausea or vomiting. No chest pain. Denies any trauma. Patient is otherwise feeling well. Related Data Home Medications ?Medication ?Instructions ?Recorded ?Confirmed trazodone 100 mg tablet 200 mg PO BEDTIME 03/19/24 04/17/24 cefdinir 300 mg capsule 300 mg PO BID 04/17/24 04/17/24 ibuprofen 800 mg tablet 800 mg PO TID 04/17/24 04/17/24 metoprolol succinate 50 mg 25 mg PO DAILY 04/17/24 04/17/24 tablet,extended release 24 hr sacubitril 24 mg-valsartan 26 mg 1 tab PO BID 04/17/24 04/17/24 tablet (Entresto) spironolactone 25 mg tablet 25 mg PO DAILY 04/17/24 04/17/24 aspirin 81 mg tablet,delayed 81 mg PO DAILY 05/24/24 release Previous Rx's ?Medication ?Instructions ?Recorded lancets 28 gauge (FreeStyle #100 ea 01/17/23 Lancets) blood sugar diagnostic (OneTouch #100 ea 05/09/23 Ultra Test strips) blood-glucose meter (OneTouch #1 ea 05/09/23 Ultra2 Meter) lancets 30 gauge (OneTouch #100 ea 05/09/23 UltraSoft 2 Lancet) atorvastatin 80 mg tablet 80 mg PO DAILY #90 tabs 09/11/23 furosemide 40 mg tablet 40 mg PO BID #90 tabs 04/17/24 amiodarone 200 mg tablet 200 mg PO DAILY #90 tabs 05/01/24 apixaban 5 mg tablet (Eliquis) 5 mg PO BID #180 tabs 05/01/24 tamsulosin 0.4 mg capsule (Flomax) 0.4 mg PO BEDTIME #30 caps 05/06/24 Allergies Allergy/AdvReac Type Severity Reaction Status Date / Time No Known Allergies Allergy Verified 05/24/24 13:29 [No Known Allergies*] Review of Systems 2 Constitutional: Constitutional: Denies chills and Denies fever(s) Cardiovascular: Cardiovascular: Denies chest pain, Denies palpitations, Denies dyspnea, Reports dyspnea on exertion and Reports orthopnea Respiratory: Respiratory: Denies cough, Denies dyspnea and Reports dyspnea on exertion Gastrointestinal: Gastrointestinal: Denies abdominal pain, Denies melena, Denies hematochezia, Denies diarrhea, Denies nausea and Denies vomiting Genitourinary: Genitourinary: Denies difficulty urinating, Denies dysuria and Denies urinary urgency Musculoskeletal: Musculoskeletal: Denies back pain, Denies muscle weakness and Denies numbness Integumentary/Breasts: Skin/Breast: Denies rash Neurologic: Denies focal weakness and Denies numbness Psychiatric: Psychiatric: Denies depression Endocrine: Endocrine: Denies palpitations PMFSH Past Medical History Medical History Atrial fibrillation with rapid ventricular response Atrial fibrillation Alcohol use Hyperlipidemia LDL goal <70 Diabetes mellitus Chronic sore throat Colon perforation Foreign body in sigmoid colon Onychomycosis 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 pylori) GERD (gastroesophageal reflux disease) Breast pain Dyslipidemia Essential hypertension Obese Abdominal mass Insomnia Surgical History H/O abdominal surgery History of colonoscopy Family History Family History Father No problems noted. Mother Kidney failure Social History Social History (Updated 03/25/24 @ 17:25 by Gina Le MD) Household Members: None Housing: Apartment Do you presently have visiting nurse or other home services: No Alcohol intake: former Patient Tobacco Use Status: Former Tobacco user Tobacco use type: Cigarette Smoked in Last 30 Days: No e-Cigarette/Vaping Use: Never Used Second Hand Smoke Exposure: No Use of substances other than those prescribed or required for medical reasons: No Advance Directives: No Advance Directives Information Provided: Yes Do you have a plan to hurt others: No Plan service: No Current occupational status: retired Cognitive needs: No Hearing needs: No Vision needs: No Physical Exam 2 Vital Signs: Vital Signs: Last Vital Signs Temp 97.5 F 05/24/24 18:32 Pulse 78 05/24/24 18:32 Resp 12 05/24/24 18:32 BP 112/85 05/24/24 18:32 Pulse Ox 96 05/24/24 19:39 O2 Del Method Room Air 05/24/24 19:39 BMI result Body Mass Index 38.1 Const: General: alert and awake Resp: Other: Decreased lung sounds in the upper lungs bilaterally. Slight crackles in the bases bilaterally. Cardio: Rhythm: regular rhythm Skin: Other: [place] warm and dry Extrem: Other: No calf tenderness or pedal edema bilaterally Course Course Course Narrative: This is an RME performed by Erin Rodriguez CNP: Additional HPI, ROS, PE not included below will be deferred to primary provider. Patient is a 63-year-old male with past medical history of hypertension, hyperlipidemia, diabetes, obesity, nonischemic cardiomyopathy, systolic heart failure, GERD, Atrial fibrillation on Eliquis, presents emergency department for evaluation of dizziness, difficulty breathing and shortness of breath over the past 2 days. Has a productive cough. Denies known sick contacts. No fevers or chills. Exam: Rales of the right lower lobe otherwise clear, mildly tachypneic, no hypoxia, speaking clear full sentences Plan: Serum labs, CXR, ECG Reevaluation(s) Reevaluation #1: Trial of Lasix and if the patient is having improvement in symptoms, he would like to go home otherwise patient may need to be brought into the hospital for further evaluation and management. Patient was given Lasix 40 mg IV. Patient had good urine output. However, patient continues to feel weak and short of breath especially with minimal movement in the exam stretcher and while attempting to move within the exam room. Given these findings, patient will be brought into the hospital for further evaluation and management. Discussed with desizing machine back tender and the patient agrees with plan. Spoke with Dr. Crespo for transfer of care. Medications Administered Discontinued Medications Generic Name Dose Route Start Last Admin Trade Name Freq PRN Reason Stop Dose Admin Furosemide 40 mg 05/24/24 17:12 05/24/24 17:54 Furosemide 40 Mg/4 Ml Vial IVPUSH 05/24/24 17:13 40 mg ONCE ONE Administration Protocol Potassium Chloride 40 meq 05/24/24 17:12 05/24/24 17:50 Potassium Chloride Packet 20 Meq Packet PO 05/24/24 17:13 40 meq ONCE ONE Administration Medical Decision Making Medical Decision Making [facility] Narrative: 63-year-old male with a history of CHF on Lasix, spironolactone, history of AFib on Eliquis, presents with a 2 day history of orthopnea and dyspnea on exertion. Chest x-ray demonstrating mild vascular congestion. There is no lower extremity edema. Trial of IV Lasix. We will replete potassium. Differential Diagnosis Differential Diagnoses: The differential diagnosis associated with the presentation includes ACS CHF Metabolic abnormality Dehydration Admission/Observation Consideration of admission/observation: Escalation of care including admission/observation considered Discussed with Dr. Crespo for transfer of care. Consult Healthcare Provider Management of the patient was discussed with: Hospitalist Lab Data [facility] Lab Attestation statement: I reviewed the patient's lab results. 05/24/24 14:19 05/24/24 14:19 Labs: Lab Results 05/24/24 Range/Units 14:19 WBC 7.5 (4.8-10.8) X10*3/uL RBC 4.70 (4.60-5.80) X10*6/uL Hgb 14.0 (14.0-18.0) g/dl Hct 40.3 L (42.0-52.0) % MCV 85.7 (80.0-98.0) fL MCH 29.8 (27.0-33.0) pg MCHC 34.7 (31.0-36.0) g/dl RDW 13.3 (11.0-16.0) % Plt Count 210 (160-400) X10*3/uL MPV 11.9 (9.4-12.4) fL Immature Gran % (Auto) 0.1 (0.0-0.4) % Neut % (Auto) 79.0 H (45-73) % Lymph % (Auto) 12.7 L (20-40) % Mcmullen % (Auto) 6.3 (2-11) % Eos % (Auto) 0.8 (0-4) % Baso % (Auto) 1.1 (0-2) % Lymph # (Auto) 1.0 L (1.2-4.9) X10*3/uL Mcmullen # (Auto) 0.5 (0.1-1.2) X10*3/uL Eos # (Auto) 0.1 (0.0-0.4) X10*3/uL Baso # (Auto) 0.1 (0.0-0.2) X10*3/uL Abs Immat Gran (auto) 0.01 (0.00-0.03) X10*3/uL Absolute Neuts (auto) 5.9 (2.0-8.3) x10*3/uL Absolute Nucleated RBC 0.000 (0.0-0.012) X10*3/uL Nucleated RBC % (auto) 0.0 (0.0-0.2) /100WBC PT 17.7 H (10.9-12.4) SEC INR 1.5 H (0.9-1.1) Sodium 141 (135-145) mmol/L Potassium 3.0 L D (3.3-5.1) mmol/L Chloride 107 (96-108) mmol/L Carbon Dioxide 25 (22-29) mmol/L Anion Gap 12 (12-20) BUN 18 H (9-16) mg/dL Creatinine 1.20 (0.5-1.4) mg/dL Estim Creat Clear Calc 61.2 Estimated GFR > 60 Random Glucose 184 H (60-115) mg/dL Calcium 9.3 (8.4-10.2) mg/dL Total Bilirubin 0.7 (0.0-1.0) mg/dL AST 18 (5-37) U/L ALT 29 (0-40) U/L Alkaline Phosphatase 70 (39-117) U/L Troponin I High Sens 18.2 (<3.5-35.0) ng/L B-Natriuretic Peptide 690 H (<100) pg/mL Total Protein 6.4 L (6.5-8.0) g/dL Albumin 3.9 (3.5-5.0) g/dL Influenza Type A (PCR) NEGATIVE (Negative) Influenza Type B (PCR) NEGATIVE (Negative) RSV RNA Qual (PCR) NEGATIVE (Negative) SARS-CoV-2 RNA (RT-PCR) NEGATIVE (Negative) Independent Interpretation I performed an independent interpretation of an: EKG Radiology Impression Discussion of test interpretation with radiology: I have reviewed the radiologist's reading. Radiologist Impression: [id number] [place] [address] XRay Report Signed Patient: Royal Glover MR#: [id number] : 1960 Acct:[id number] Age/Sex: 63 / M ADM Date: 05/24/24 Loc: .ED Attending Dr: Ordering Physician: Antonella Rodriguez CNP Date of Service: 05/24/24 Procedure(s): XR chest 2V Accession Number(s): [id number] cc: Antonella Rodriguez CNP; Gina Davey MD~ EXAMINATION: XR CHEST CLINICAL INFORMATION: 63-year-old female with shortness of breath COMPARISON: March 19, 2020 TECHNIQUE: 2 views of the chest were obtained. FINDINGS: There is low lung volume bilaterally with vascular prominence and bibasilar atelectasis there is blunting of left costophrenic angle likely due to trace of pleural effusion. Heart is prominent XR/XR chest 2V IMPRESSION: Mild vascular congestion and bibasilar atelectasis. Trace of left pleural effusion. Electronically signed by: Terry Corona MD 05/24/2024 04:39 PM EDT Dictated By: Terry Corona MD Signed By: <Electronically signed by Terry Corona MD in OV> 05/24/24 1639 DD/ 1455 TD/TT: 05/24/24 1515 Fibrous Wallboard Inspector: Independent Historian Clinical information obtained from an independent historian. History obtained from or confirmed by: Spouse External Record Review External record reviewed: Inpatient record Chronic Conditions Patient?s care impacted by: Hypertension Discharge Plan Discharge Clinical Impression: Congestive heart failure Qualifiers: Heart failure type: unspecified Heart failure chronicity: acute on chronic Q ualified Code(s): I50.9 - Heart failure, unspecified Patient Disposition: Admitted As Inpatient Print Language: Greenlandic
--- NOTE | 2024-05-24 13:33 | ECG_ITS ---
Test Reason : shortness of breath Blood Pressure : / mmHG Vent. Rate : 084 BPM Atrial Rate : 000 BPM P-R Int : 000 ms QRS Dur : 166 ms QT Int : 424 ms P-R-T Axes : 000 -46 101 degrees QTc Int : 501 ms Atrial fibrillation Left bundle branch block Abnormal ECG When compared with ECG of 19-MAR-2024 15:48, Vent. rate has decreased BY 42 BPM QRS duration has increased Referred By: Antonella Rodriguez Electronically Signed By:SETH GAGE MD
[2024-05-24 14:25] LABS: MANUAL DIFF FLAG NO
[2024-05-24 14:26] LABS: Basophils Absolute Auto 0.1 X10*3/uL (0.0-0.2); Basophils Percent Auto 1.1 % (0-2); Eosinophils Absolute Auto 0.1 X10*3/uL (0.0-0.4); Eosinophils Percent Auto 0.8 % (0-4); Hematocrit 40.3 % (42.0-52.0); Imm Gran Abs Auto 0.01 X10*3/uL (0.00-0.03); Imm Gran Pct Auto 0.1 % (0.0-0.4); Lymphocytes Percent Auto 12.7 % (20-40); Mean Corpuscular HGB Conc 34.7 g/dl (31.0-36.0); Mean Corpuscular Hemoglobin 29.8 pg (27.0-33.0); Mean Corpuscular Volume 85.7 fL (80.0-98.0); Mean Platelet Volume 11.9 fL (9.4-12.4); Monocytes Absolute Auto 0.5 X10*3/uL (0.1-1.2); Monocytes Percent Auto 6.3 % (2-11); Neutrophils Absolute Auto 5.9 x10*3/uL (2.0-8.3); Platelet Count 210 X10*3/uL (160-400); Red Cell Distribution Width 13.3 % (11.0-16.0); White Blood Count 7.5 X10*3/uL (4.8-10.8)
[2024-05-24 14:35] LABS: INTERNATIONAL NORM RATIO 1.5 (0.9-1.1); Prothrombin Time 17.7 SEC (10.9-12.4)
[2024-05-24 14:48] LABS: Alanine Aminotransferase 29 U/L (0-40); Albumin Level 3.9 g/dL (3.5-5.0); Alkaline Phosphatase 70 U/L (39-117); Anion Gap 12 (12-20); Aspartate Amino Transferase 18 U/L (5-37); Bilirubin Total 0.7 mg/dL (0.0-1.0); Blood Urea Nitrogen 18 mg/dL (9-16); Calcium 9.3 mg/dL (8.4-10.2); Carbon Dioxide 25 mmol/L (22-29); Chloride 107 mmol/L (96-108); Creatinine Clr Calc Pharmacy 61.2; Estimated Glomerular Filt Rate > 60; Glucose Random 184 mg/dL (60-115); Sodium 141 mmol/L (135-145); Total Protein 6.4 g/dL (6.5-8.0)
[2024-05-24 14:54] LABS: B Type Natriuretic Peptide 690 pg/mL (<100)
[2024-05-24 14:56] LABS: Troponin-I High Sensitivity 18.2 ng/L (<3.5-35.0)
[2024-05-24 15:18] LABS: Influenza A PCR NEGATIVE (Negative); Influenza B PCR NEGATIVE (Negative); Resp Syncy Virus RNA Qual PCR NEGATIVE (Negative); SARS COV2 PCR INHOUSE NEGATIVE (Negative)
[2024-05-24] MEDS: Potassium Chloride Packet 20 MEQ PACKET 40 MEQ PO (17:50)
[2024-05-24] MEDS: Furosemide 40 MG/4 ML VIAL IVPUSH (17:54)
--- NOTE | 2024-05-24 19:56 | MHC.EDTECH ---
500mls in urinal emptied.
--- NOTE | 2024-05-24 20:40 | PHA.MEDREC ---
Addendum entered by Donte Ann RPh 05/24/24 20:45: MED REC CHECKED BY [facility] ED Original Note: Pharmacy Consult ? Medication Reconciliation Pharmacy has completed the medication reconciliation. Patient is a poor historian he didn't know what medications he takes. Called Carrie in contacts and she said that the patient lives alone and she has no idea what medications he takes . Utilized claims to confirm med list.
--- NOTE | 2024-05-24 20:46 | PM.IMHP ---
History of Present Illness Date of Service: 05/24/24 Attending physician on admission: Dayanna Crespo Chief Complaint: SOB Pt is a 63-year-old male with a PMH significant for?HFrEF w/LVEF 10-15% (03/23/24), AFib on Eliquis, HTN, CAD s/p stenting, hx of medication noncompliance, hx of alcohol use disorder, and GERD who presents to the ED with?lightheadedness, dizziness, weakness, and shortness of breath x2 days. SOB occurs with minimal exertion. Has not been able to sleep due to orthopnea. Also complains of cough occasionally productive of whitish sputum. Subjective chills but no fever. Has been experiencing some lower abdominal discomfort, but no noticeable abdominal swelling. Denies chest pain/pressure, palpitations. Occasional headache. Patient was last admitted to this hospital on 03/19-03/24 and treated for CHF exacerbation. During hospital stay was noted to have new onset AFib with RVR only partially controlled metoprolol. Had ROSEMARY with cardioversion and remained in sinus rhythm during stay. Since then patient also was admitted to a hospital in [facility] for acute exacerbation of heart failure. During office visit to Cardiology on 04/17 patient was noted to again be back in AFib with variable block. Reports at that time apparently was only taking Eliquis once daily instead of b.i.d.. In the ED pt was tachypneic up to 26 and mildly hypertensive at 130/91. Labs were significant for potassium 3.0, and BNP 690 (elevated from 219 on 03/23/2024), otherwise grossly unremarkable. No leukocytosis. Stable H&H. Renal and hepatic function WNL. Tested negative for flu, COVID, and RSV. CXR showed mild vascular congestion and bibasilar atelectasis with trace left pleural effusion. EKG demonstrated AFib with new LBBB but no evidence of significant ST elevations or depressions. Pt was treated with potassium chloride and furosemide 40 mg IV. Pt will be admitted to the hospital for treatment and further evaluation of acute respiratory distress secondary to acute CHF exacerbation. Review of Systems Review of Systems: Yes all other systems are reviewed and are negative [facility] Medical History Atrial fibrillation with rapid ventricular response Atrial fibrillation Alcohol use Hyperlipidemia LDL goal <70 Diabetes mellitus Chronic sore throat Colon perforation Foreign body in sigmoid colon Onychomycosis 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 pylori) GERD (gastroesophageal reflux disease) Breast pain Dyslipidemia Essential hypertension Obese Abdominal mass Insomnia Family History Father No problems noted. Mother Kidney failure Surgical History H/O abdominal surgery History of colonoscopy Social History Household Members: None Housing: Apartment Do you presently have visiting nurse or other home services: No Alcohol intake: former Patient Tobacco Use Status: Former Tobacco user Tobacco use type: Cigarette Smoked in Last 30 Days: No e-Cigarette/Vaping Use: Never Used Second Hand Smoke Exposure: No Use of substances other than those prescribed or required for medical reasons: No Advance Directives: No Advance Directives Information Provided: Yes Do you have a plan to hurt others: No Plan service: No Current occupational status: retired Cognitive needs: No Hearing needs: No Vision needs: No Meds Allergies Allergy/AdvReac Type Severity Reaction Status Date / Time No Known Allergies Allergy Verified 05/24/24 13:29 [No Known Allergies*] Active Medications: Current Medications Acetaminophen (Acetaminophen 325 Mg Tablet) 650 mg PO Q6H PRN PRN Reason: Pain, Mild (Pain Scale 1-3), fever or headache Calcium Carbonate (Calcium Carbonate 750 Mg Tab.Chew) 750 mg PO Q4H PRN PRN Reason: Heartburn Furosemide (Furosemide 40 Mg/4 Ml Vial) 40 mg IVPUSH BID@0900,1800 [facility]; Protocol Magnesium Hydroxide (Milk Of Magnesia 30 Ml Oral.Susp) 30 ml PO DAILY PRN PRN Reason: Constipation Melatonin (Melatonin 3 Mg Tablet) 6 mg PO BEDTIME PRN PRN Reason: Insomnia Ondansetron HCl (Ondansetron Hcl 4 Mg/2 Ml Vial) 4 mg IVPUSH Q8H PRN PRN Reason: Nausea and Vomiting Sodium Chloride (0.9 % Sodium Chloride Flush 3 Ml Syringe) 3 [facility] Medications ?Medication ?Instructions ?Recorded ?Confirmed ?Last Taken ?Type trazodone 100 mg tablet 200 mg PO BEDTIME 03/19/24 05/24/24 03/19/24 History ibuprofen 800 mg tablet 800 mg PO TID 04/17/24 05/24/24 Unknown History metoprolol succinate 50 mg 25 mg PO DAILY 04/17/24 05/24/24 Unknown History tablet,extended release 24 hr sacubitril 24 mg-valsartan 26 mg 1 tab PO BID 04/17/24 05/24/24 Unknown History tablet (Entresto) spironolactone 25 mg tablet 25 mg PO DAILY 04/17/24 05/24/24 Unknown History aspirin 81 mg tablet,delayed 81 mg PO DAILY 05/24/24 05/24/24 Unknown History release Physical Exam Vital Signs and Narrative: Vital Signs: Last Vital Signs Temp 97.5 F 05/24/24 18:32 Pulse 78 05/24/24 18:32 Resp 12 05/24/24 18:32 BP 112/85 05/24/24 18:32 Pulse Ox 96 05/24/24 19:39 O2 Del Method Room Air 05/24/24 19:39 BMI result Body Mass Index 38.1 General: AOx3, no acute distress Resp: CTA bilaterally CVS: Irregularly irregular rhythm GI: +BS, no distention, mild lower abd tenderness. No rebounding or guarding. Skin: Warm, dry Neuro: Cranial nerves II-XII grossly intact bilaterally. Motor grossly intact bilaterally Extremities: No edema Psych: Appropriate affect Results Labs 05/24/24 14:19 05/24/24 14:19 Labs: Laboratory Results - last 24 hr 05/24/24 14:19 MCV 85.7 MCH 29.8 MCHC 34.7 RDW 13.3 Plt Count 210 MPV 11.9 Immature Gran % (Auto) 0.1 Neut % (Auto) 79.0 H Lymph % (Auto) 12.7 L Meagher % (Auto) 6.3 Eos % (Auto) 0.8 Baso % (Auto) 1.1 Lymph # (Auto) 1.0 L Meagher # (Auto) 0.5 Eos # (Auto) 0.1 Baso # (Auto) 0.1 Abs Immat Gran (auto) 0.01 Absolute Neuts (auto) 5.9 Absolute Nucleated RBC 0.000 Nucleated RBC % (auto) 0.0 PT 17.7 H INR 1.5 H Anion Gap 12 Estim Creat Clear Calc 61.2 Estimated GFR > 60 Random Glucose 184 H Calcium 9.3 Total Bilirubin 0.7 AST 18 ALT 29 Alkaline Phosphatase 70 Troponin I High Sens 18.2 B-Natriuretic Peptide 690 H Total Protein 6.4 L Albumin 3.9 Influenza Type A (PCR) NEGATIVE Influenza Type B (PCR) NEGATIVE RSV RNA Qual (PCR) NEGATIVE SARS-CoV-2 RNA (RT-PCR) NEGATIVE Imaging Radiologist's Impressions: Impressions Chest X-Ray 05/24/24 14:55 IMPRESSION: Mild vascular congestion and bibasilar atelectasis. Trace of left pleural effusion. Electronically signed by: Terry Corona MD 05/24/2024 04:39 PM EDT RP Assessment and Plan (1) Acute on chronic systolic CHF (congestive heart failure): Status: Resolved Plan Pt is a 63-year-old male with a PMH significant for?HFrEF w/LVEF 10-15% (03/23/24), AFib on Eliquis, HTN, CAD s/p stenting, hx of medication noncompliance, hx of alcohol use disorder, and GERD who presents to the ED with?lightheadedness, dizziness, weakness, and shortness of breath x2 days. SOB occurs with minimal exertion. Pt will be admitted to the hospital for treatment and further evaluation of acute respiratory distress secondary to acute on chronic decompensated HFrEF exacerbation. Acute on chronic respiratory distress in the setting of acute on chronic decompensated HFrEF exacerbation Patient with SOB, ANDRADE, elevated BNP, CXR with vascular congestion and pleural effusion ROSEMARY showed LVEF of 10-15% on 03/23/2024 Pt with history of medication noncompliance Will treat with Lasix 40 mg IV b.i.d. Continue Entresto, spironolactone Follow lytes, Mag, I/O Daily weights, low-salt diet Cardiology consult Will hold on repeat echocardiogram pending Cardiology input Monitor on telemetry Hypokalemia Potassium 3.0 at time of presentation Given 40 mEq p.o. in the ED Follow BMP AFib Continue metoprolol, Eliquis HLD Continue statin BPH Continue tamsulosin Full Code Attending:?Dr. Crespo DVT Prophylaxis: On Eliquis Pt will require a hospitalization of at least two nights for treatment of?acute on chronic respiratory distress in the setting of acute on chronic decompensated HFrEF. Given patient's significant cardiac history including last LVEF of 10-15%, patient is at significant risk for further decompensation and will require hospital level care for administration of IV diuretics, close monitoring of labs, and specialist consultation with Cardiology. Quality Stroke Does the patient have a stroke diagnosis?: No VTE Prior VTE?: No VTE Risk Level:: Medical - moderate - high VTE Device Contraindication: Treatment Not Indicated VTE Drug Contraindication: N/A - Med Ordered
[2024-05-24] MEDS: Tamsulosin HCL 0.4 MG CAPSULE PO (22:15)
[2024-05-24] MEDS: Sacubitril/Valsartan 24/26 1 TAB TABLET PO (22:15)
[2024-05-24] MEDS: Apixaban 5 MG TABLET PO (22:15)
[2024-05-24] MEDS: traZODone HCL 100 MG TABLET 200 MG PO (22:16)
[2024-05-25] VITALS: BP 104/66; PULSE 91; RESP 18; TEMP 36.3; O2SAT 93
[2024-05-25 00:57] VITALS: BMI 37.5
[2024-05-25] MEDS: Flu Vacc TS2024-25(6mos up)/PF 0.5 ML SYRINGE IM (02:07)
[2024-05-25] MEDS: 0.9 % Sodium Chloride Flush 3 ML SYRINGE IVFLUSH ×3 (02:11→20:49)
[2024-05-25 04:00] VITALS: BP 128/62; PULSE 86; RESP 18; TEMP 36.2; O2SAT 94
[2024-05-25 06:00] VITALS: BMI 37.5
[2024-05-25 07:15] LABS: MANUAL DIFF FLAG NO
[2024-05-25 07:19] LABS: Basophils Absolute Auto 0.1 X10*3/uL (0.0-0.2); Basophils Percent Auto 1.1 % (0-2); Eosinophils Absolute Auto 0.1 X10*3/uL (0.0-0.4); Hematocrit 42.5 % (42.0-52.0); Hemoglobin 14.5 g/dl (14.0-18.0); Imm Gran Abs Auto 0.01 X10*3/uL (0.00-0.03); Imm Gran Pct Auto 0.1 % (0.0-0.4); Lymphocytes Absolute Auto 1.4 X10*3/uL (1.2-4.9); Lymphocytes Percent Auto 20.5 % (20-40); Mean Corpuscular HGB Conc 34.1 g/dl (31.0-36.0); Mean Corpuscular Hemoglobin 29.4 pg (27.0-33.0); Mean Corpuscular Volume 86.2 fL (80.0-98.0); Mean Platelet Volume 11.8 fL (9.4-12.4); Monocytes Absolute Auto 0.5 X10*3/uL (0.1-1.2); Monocytes Percent Auto 7.5 % (2-11); Neutrophils Absolute Auto 4.8 x10*3/uL (2.0-8.3); Neutrophils Percent Auto 68.8 % (45-73); Platelet Count 209 X10*3/uL (160-400); Red Blood Count 4.93 X10*6/uL (4.60-5.80); Red Cell Distribution Width 13.3 % (11.0-16.0)
[2024-05-25 07:31] LABS: Anion Gap 12 (12-20); Blood Urea Nitrogen 16 mg/dL (9-16); Calcium 9.4 mg/dL (8.4-10.2); Carbon Dioxide 27 mmol/L (22-29); Chloride 108 mmol/L (96-108); Creatinine Clr Calc Pharmacy 68.7; Estimated Glomerular Filt Rate > 60; Glucose Random 106 mg/dL (60-115); Potassium 3.5 mmol/L (3.3-5.1); Sodium 143 mmol/L (135-145)
[2024-05-25 08:00] VITALS: BP 111/69; PULSE 77; RESP 18; TEMP 36.4; O2SAT 92
--- NOTE | 2024-05-25 08:48 | HO.PM.IMPN ---
Subjective Subjective Date of Service: 05/25/24 Review of Systems Follow up CHF Still with SOB especially with ambulation Physical Exam Vital Signs: Vital Signs: Last Vital Signs Temp 97.6 F 05/25/24 08:00 Pulse 77 05/25/24 08:00 Resp 18 05/25/24 08:00 BP 111/69 05/25/24 08:00 Pulse Ox 92 05/25/24 08:00 O2 Del Method Room Air 05/25/24 08:00 BMI result Body Mass Index 37.5 Appearing in no acute distress lung sounds are clear to auscultation heart regular rate rhythm, clear S1, S2 positive bowel sounds, abdomen is soft, nontender neuro patient is alert x3, no focal deficits Objective Data Active Medications Acetaminophen (Acetaminophen 325 Mg Tablet) 650 mg PO Q6H PRN PRN Reason: Pain, Mild (Pain Scale 1-3), fever or headache Amiodarone HCl (Amiodarone Hcl 200 Mg Tablet) 200 mg PO DAILY [facility] Apixaban (Apixaban 5 Mg Tablet) 5 mg PO BID [facility] Last Admin: 05/24/24 22:15 Dose: 5 mg Documented By: NADIR Aspirin (Aspirin Enteric Coated 81 Mg Tablet.Dr) 81 mg PO DAILY [facility] Atorvastatin Calcium (Atorvastatin Calcium 80 Mg Tablet) 80 mg PO DAILY [facility] Calcium Carbonate (Calcium Carbonate 750 Mg Tab.Chew) 750 mg PO Q4H PRN PRN Reason: Heartburn Furosemide (Furosemide 40 Mg/4 Ml Vial) 40 mg IVPUSH BID@0900,1800 [facility]; Protocol Ibuprofen (Ibuprofen 800 Mg Tablet) 800 mg PO TID [facility] Magnesium Hydroxide (Milk Of Magnesia 30 Ml Oral.Susp) 30 ml PO DAILY PRN PRN Reason: Constipation Melatonin (Melatonin 3 Mg Tablet) 6 mg PO BEDTIME PRN PRN Reason: Insomnia Metoprolol Succinate (Metoprolol Succinate Er 25 Mg Tab.Er.24h) 25 mg PO DAILY [facility]; Protocol Ondansetron HCl (Ondansetron Hcl 4 Mg/2 Ml Vial) 4 mg IVPUSH Q8H PRN PRN Reason: Nausea and Vomiting Sacubitril/Valsartan (Sacubitril/Valsartan 1 Tab Tablet) 1 tab PO BID [facility]; Protocol Last Admin: 05/24/24 22:15 Dose: 1 tab Documented By: NADIR Sodium Chloride (0.9 % Sodium Chloride Flush 3 Ml Syringe) 3 ml IVFLUSH QSHIFT [facility] Last Admin: 05/25/24 02:11 Dose: 3 ml Documented By: SHAZIA Spironolactone (Spironolactone 25 Mg Tablet) 25 mg PO DAILY [facility]; Protocol Tamsulosin HCl (Tamsulosin Hcl 0.4 Mg Capsule) 0.4 mg PO BEDTIME [facility] Last Admin: 05/24/24 22:15 Dose: 0.4 mg Documented By: NADIR Trazodone HCl (Trazodone Hcl 100 Mg Tablet) 200 mg PO BEDTIME [facility] Last Admin: 05/24/24 22:16 Dose: 200 mg Documented By: NADIR Labs 05/25/24 07:07 05/25/24 07:07 Labs: Laboratory Results - last 24 hr 05/24/24 05/25/24 14:19 07:07 MCV 85.7 86.2 MCH 29.8 29.4 MCHC 34.7 34.1 RDW 13.3 13.3 Plt Count 210 209 MPV 11.9 11.8 Immature Gran % (Auto) 0.1 0.1 Neut % (Auto) 79.0 H 68.8 Lymph % (Auto) 12.7 L 20.5 [place] % (Auto) 6.3 7.5 Eos % (Auto) 0.8 2.0 Baso % (Auto) 1.1 1.1 Lymph # (Auto) 1.0 L 1.4 [place] # (Auto) 0.5 0.5 Eos # (Auto) 0.1 0.1 Baso # (Auto) 0.1 0.1 Abs Immat Gran (auto) 0.01 0.01 Absolute Neuts (auto) 5.9 4.8 Absolute Nucleated RBC 0.000 0.000 Nucleated RBC % (auto) 0.0 0.0 PT 17.7 H INR 1.5 H Anion Gap 12 12 Estim Creat Clear Calc 61.2 68.7 Estimated GFR > 60 > 60 Random Glucose 184 H 106 Calcium 9.3 9.4 Total Bilirubin 0.7 AST 18 ALT 29 Alkaline Phosphatase 70 Troponin I High Sens 18.2 B-Natriuretic Peptide 690 H Total Protein 6.4 L Albumin 3.9 Influenza Type A (PCR) NEGATIVE Influenza Type B (PCR) NEGATIVE RSV RNA Qual (PCR) NEGATIVE SARS-CoV-2 RNA (RT-PCR) NEGATIVE Assessment and Plan (1) Congestive heart failure: Status: Acute Plan 63-year-old male with a PMH significant for?HFrEF w/LVEF 10-15% (03/23/24), AFib on Eliquis, HTN, CAD s/p stenting, hx of medication noncompliance, hx of alcohol use disorder, and GERD who presents to the ED with?lightheadedness, dizziness, weakness, and shortness of breath x2 days. SOB occurs with minimal exertion. Pt will be admitted to the hospital for treatment and further evaluation of acute respiratory distress secondary to acute on chronic decompensated HFrEF exacerbation. Acute on chronic respiratory distress in the setting of acute on chronic decompensated HFrEF exacerbation Patient with SOB, ANDRADE, elevated BNP, CXR with vascular congestion and pleural effusion ROSEMARY showed LVEF of 10-15% on 03/23/2024 Pt with history of medication noncompliance Lasix 40 mg IV b.i.d. Continue Entresto, spironolactone Daily weights, low-salt diet Cardiology consult, Will hold on repeat echocardiogram pending Cardiology input Monitor on telemetry Hypokalemia. Resolved Given 40 mEq p.o. in the ED Follow BMP AFib Continue metoprolol, Eliquis HLD Continue statin BPH Continue tamsulosin Full Code Attending:?Dr. Hooks DVT Prophylaxis: On Eliquis Quality Stroke Does the patient have a stroke diagnosis?: No VTE Prior VTE?: No VTE Risk Level:: Medical - moderate - high VTE Device Contraindication: Treatment Not Indicated VTE Drug Contraindication: N/A - Med Ordered
--- NOTE | 2024-05-25 11:00 | HO.PM.IMPN ---
Subjective Subjective Date of Service: 05/25/24 Review of Systems Follow up CHF Still with SOB especially with ambulation Physical Exam Vital Signs: Vital Signs: Last Vital Signs Temp 97.6 F 05/25/24 08:00 Pulse 77 05/25/24 08:00 Resp 18 05/25/24 08:00 BP 111/69 05/25/24 08:00 Pulse Ox 92 05/25/24 08:00 O2 Del Method Room Air 05/25/24 08:00 BMI result Body Mass Index 37.5 Appearing in no acute distress lung sounds are clear to auscultation heart regular rate rhythm, clear S1, S2 positive bowel sounds, abdomen is soft, nontender neuro patient is alert x3, no focal deficits Objective Data Active Medications Acetaminophen (Acetaminophen 325 Mg Tablet) 650 mg PO Q6H PRN PRN Reason: Pain, Mild (Pain Scale 1-3), fever or headache Amiodarone HCl (Amiodarone Hcl 200 Mg Tablet) 200 mg PO DAILY [facility] Apixaban (Apixaban 5 Mg Tablet) 5 mg PO BID [facility] Last Admin: 05/24/24 22:15 Dose: 5 mg Documented By: NADIR Aspirin (Aspirin Enteric Coated 81 Mg Tablet.Dr) 81 mg PO DAILY [facility] Atorvastatin Calcium (Atorvastatin Calcium 80 Mg Tablet) 80 mg PO DAILY [facility] Calcium Carbonate (Calcium Carbonate 750 Mg Tab.Chew) 750 mg PO Q4H PRN PRN Reason: Heartburn Furosemide (Furosemide 40 Mg/4 Ml Vial) 40 mg IVPUSH BID@0900,1800 [facility]; Protocol Ibuprofen (Ibuprofen 800 Mg Tablet) 800 mg PO TID [facility] Magnesium Hydroxide (Milk Of Magnesia 30 Ml Oral.Susp) 30 ml PO DAILY PRN PRN Reason: Constipation Melatonin (Melatonin 3 Mg Tablet) 6 mg PO BEDTIME PRN PRN Reason: Insomnia Metoprolol Succinate (Metoprolol Succinate Er 25 Mg Tab.Er.24h) 25 mg PO DAILY [facility]; Protocol Ondansetron HCl (Ondansetron Hcl 4 Mg/2 Ml Vial) 4 mg IVPUSH Q8H PRN PRN Reason: Nausea and Vomiting Sacubitril/Valsartan (Sacubitril/Valsartan 1 Tab Tablet) 1 tab PO BID [facility]; Protocol Last Admin: 05/24/24 22:15 Dose: 1 tab Documented By: NADIR Sodium Chloride (0.9 % Sodium Chloride Flush 3 Ml Syringe) 3 ml IVFLUSH QSHIFT [facility] Last Admin: 05/25/24 02:11 Dose: 3 ml Documented By: SHAZIA Spironolactone (Spironolactone 25 Mg Tablet) 25 mg PO DAILY [facility]; Protocol Tamsulosin HCl (Tamsulosin Hcl 0.4 Mg Capsule) 0.4 mg PO BEDTIME [facility] Last Admin: 05/24/24 22:15 Dose: 0.4 mg Documented By: NADIR Trazodone HCl (Trazodone Hcl 100 Mg Tablet) 200 mg PO BEDTIME [facility] Last Admin: 05/24/24 22:16 Dose: 200 mg Documented By: NADIR Labs 05/25/24 07:07 05/25/24 07:07 Labs: Laboratory Results - last 24 hr 05/24/24 05/25/24 14:19 07:07 MCV 85.7 86.2 MCH 29.8 29.4 MCHC 34.7 34.1 RDW 13.3 13.3 Plt Count 210 209 MPV 11.9 11.8 Immature Gran % (Auto) 0.1 0.1 Neut % (Auto) 79.0 H 68.8 Lymph % (Auto) 12.7 L 20.5 [place] % (Auto) 6.3 7.5 Eos % (Auto) 0.8 2.0 Baso % (Auto) 1.1 1.1 Lymph # (Auto) 1.0 L 1.4 [place] # (Auto) 0.5 0.5 Eos # (Auto) 0.1 0.1 Baso # (Auto) 0.1 0.1 Abs Immat Gran (auto) 0.01 0.01 Absolute Neuts (auto) 5.9 4.8 Absolute Nucleated RBC 0.000 0.000 Nucleated RBC % (auto) 0.0 0.0 PT 17.7 H INR 1.5 H Anion Gap 12 12 Estim Creat Clear Calc 61.2 68.7 Estimated GFR > 60 > 60 Random Glucose 184 H 106 Calcium 9.3 9.4 Total Bilirubin 0.7 AST 18 ALT 29 Alkaline Phosphatase 70 Troponin I High Sens 18.2 B-Natriuretic Peptide 690 H Total Protein 6.4 L Albumin 3.9 Influenza Type A (PCR) NEGATIVE Influenza Type B (PCR) NEGATIVE RSV RNA Qual (PCR) NEGATIVE SARS-CoV-2 RNA (RT-PCR) NEGATIVE Assessment and Plan (1) Congestive heart failure: Status: Acute Plan 63-year-old male with a PMH significant for?HFrEF w/LVEF 10-15% (03/23/24), AFib on Eliquis, HTN, CAD s/p stenting, hx of medication noncompliance, hx of alcohol use disorder, and GERD who presents to the ED with?lightheadedness, dizziness, weakness, and shortness of breath x2 days. SOB occurs with minimal exertion. Pt will be admitted to the hospital for treatment and further evaluation of acute respiratory distress secondary to acute on chronic decompensated HFrEF exacerbation. Acute on chronic respiratory distress in the setting of acute on chronic decompensated HFrEF exacerbation Patient with SOB, ANDRADE, elevated BNP, CXR with vascular congestion and pleural effusion ROSEMARY showed LVEF of 10-15% on 03/23/2024 Pt with history of medication noncompliance Lasix 40 mg IV b.i.d. Continue Entresto, spironolactone Daily weights, low-salt diet Cardiology consult, Will hold on repeat echocardiogram pending Cardiology input Monitor on telemetry Hypokalemia. Resolved Given 40 mEq p.o. in the ED Follow BMP AFib Continue metoprolol, Eliquis HLD Continue statin BPH Continue tamsulosin Full Code Attending:?Dr. Hooks DVT Prophylaxis: On Eliquis Quality Stroke Does the patient have a stroke diagnosis?: No VTE Prior VTE?: No VTE Risk Level:: Medical - moderate - high VTE Device Contraindication: Treatment Not Indicated VTE Drug Contraindication: N/A - Med Ordered
--- NOTE | 2024-05-25 11:23 | PM.CNCAR ---
History of Present Illness History of Present Illness Date of Service: 05/25/24 Consult reason: atrial fibrillation and congestive heart failure Chief complaint: Dyspnes Narrative: I was consulted to see Royal in cardiology consultation today for decompensated congestive heart failure. He is a 63-year-old male with prior history of difficult control atrial fibrillation has remained in atrial fibrillation after cardioversion in March and was seen in follow-up in April and was planned for cardioversion early May but this is not happen. Patient came to the hospital with progressive shortness of breath and orthopnea. Patient also complains of lightheadedness and weakness. Patient came to the hospital and noted to have elevated BNP in the 690 range. On discharge in March it was 219. Patient says he has been extremely compliant with his medications. His EKG shows recurrent atrial fibrillation with left bundle-branch block. Patient denies any palpitations. No syncope. Of chest pain. Blood pressures been stable. On admission his potassium was noted to be low. Review of Systems Constitutional: Constitutional: Reports weakness Eyes: Eyes: Reports no additional eye complaints Cardiovascular: Cardiovascular: Denies chest pain, Denies leg edema, Reports lightheadedness, Denies palpitations, Reports dyspnea on exertion and Reports orthopnea Respiratory: Respiratory: Reports no additional respiratory complaints and Reports dyspnea on exertion Gastrointestinal: Gastrointestinal: Reports no additional gastrointestinal complaints Genitourinary: Genitourinary: Reports no additional male genitourinary complaints Musculoskeletal: Musculoskeletal: Reports no additional musculoskeletal complaints Integumentary/Breasts: Skin/Breast: Reports system reviewed and no additional complaints, except as docu Neurologic: Reports system reviewed and no additional complaints, except as documented and Reports weakness Psychiatric: Psychiatric: Reports no additional psychiatric complaints Endocrine: Endocrine: Denies palpitations Allergic/Immunologic: Allergic/Immunologic: Reports no additional allergic/immunologic complaints [facility] Past Medical History Medical History (Updated 05/25/24 @ 11:31 by Marcos Osuna MD) Atrial flutter Atrial fibrillation with rapid ventricular response Atrial fibrillation Alcohol use Hyperlipidemia LDL goal <70 Diabetes mellitus Chronic sore throat Colon perforation Foreign body in sigmoid colon Onychomycosis 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 pylori) GERD (gastroesophageal reflux disease) Breast pain Dyslipidemia Essential hypertension Obese Abdominal mass Insomnia Family History Family History Father No problems noted. 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; currently looking for a nuclear physics professor) Alcohol intake: former Patient Tobacco Use Status: Former Tobacco user Tobacco use type: Cigarette e-Cigarette/Vaping Use: Never Used Second Hand Smoke Exposure: No service: No Current occupational status: retired Cognitive needs: No Hearing needs: No Vision needs: No Meds Allergies Allergy/AdvReac Type Severity Reaction Status Date / Time No Known Allergies Allergy Verified 05/24/24 13:29 [No Known Allergies*] Active Medications: Current Medications Acetaminophen (Acetaminophen 325 Mg Tablet) 650 mg PO Q6H PRN PRN Reason: Pain, Mild (Pain Scale 1-3), fever or headache Amiodarone HCl (Amiodarone Hcl 200 Mg Tablet) 200 mg PO DAILY [facility] Apixaban (Apixaban 5 Mg Tablet) 5 mg PO BID [facility] Last Admin: 05/24/24 22:15 Dose: 5 mg Aspirin (Aspirin Enteric Coated 81 Mg Tablet.Dr) 81 mg PO DAILY [facility] Atorvastatin Calcium (Atorvastatin Calcium 80 Mg Tablet) 80 mg PO DAILY [facility] Calcium Carbonate (Calcium Carbonate 750 Mg Tab.Chew) 750 mg PO Q4H PRN PRN Reason: Heartburn Furosemide (Furosemide 40 Mg/4 Ml Vial) 40 mg IVPUSH BID@0900,1800 [facility]; Protocol Ibuprofen (Ibuprofen 800 Mg Tablet) 800 mg PO TID [facility] Magnesium Hydroxide (Milk Of Magnesia 30 Ml Oral.Susp) 30 ml PO DAILY PRN PRN Reason: Constipation Melatonin (Melatonin 3 Mg Tablet) 6 mg PO BEDTIME PRN PRN Reason: Insomnia Metoprolol Succinate (Metoprolol Succinate Er 25 Mg Tab.Er.24h) 25 mg PO DAILY [facility]; Protocol Ondansetron HCl (Ondansetron Hcl 4 Mg/2 Ml Vial) 4 mg IVPUSH Q8H PRN PRN Reason: Nausea and Vomiting Sacubitril/Valsartan (Sacubitril/Valsartan 1 Tab Tablet) 1 tab PO BID [facility]; Protocol Last Admin: 05/24/24 22:15 Dose: 1 tab Sodium Chloride (0.9 % Sodium Chloride Flush 3 Ml Syringe) 3 ml IVFLUSH QSHIFT [facility] Last Admin: 05/25/24 02:11 Dose: 3 ml Spironolactone (Spironolactone 25 Mg Tablet) 25 mg PO DAILY [facility]; Protocol Tamsulosin HCl (Tamsulosin Hcl 0.4 Mg Capsule) 0.4 mg PO BEDTIME [facility] Last Admin: 05/24/24 22:15 Dose: 0.4 mg Trazodone HCl (Trazodone Hcl 100 Mg Tablet) 200 mg PO BEDTIME [facility] Last Admin: 05/24/24 22:16 Dose: 200 mg Home Medications ?Medication ?Instructions ?Recorded ?Confirmed ?Last Taken ?Type trazodone 100 mg tablet 200 mg PO BEDTIME 03/19/24 05/24/24 03/19/24 History ibuprofen 800 mg tablet 800 mg PO TID 04/17/24 05/24/24 Unknown History metoprolol succinate 50 mg 25 mg PO DAILY 04/17/24 05/24/24 Unknown History tablet,extended release 24 hr sacubitril 24 mg-valsartan 26 mg 1 tab PO BID 04/17/24 05/24/24 Unknown History tablet (Entresto) spironolactone 25 mg tablet 25 mg PO DAILY 04/17/24 05/24/24 Unknown History aspirin 81 mg tablet,delayed 81 mg PO DAILY 05/24/24 05/24/24 Unknown History release Physical Exam Vital Signs: Vital Signs: Last Vital Signs Temp 97.6 F 05/25/24 08:00 Pulse 77 05/25/24 08:00 Resp 18 05/25/24 08:00 BP 111/69 05/25/24 08:00 Pulse Ox 92 05/25/24 08:00 O2 Del Method Room Air 05/25/24 08:00 BMI result Body Mass Index 37.5 Const: General: cooperative, no acute distress, alert and awake Nutritional Appearance: obese Orientation/consciousness: patient oriented x3 HEENT: Head: Yes normocephalic and Yes atraumatic Neck: Neck: Yes trachea midline, Yes supple and Yes JVD Resp: Effort & Inspection: normal respiratory effort Auscultation: rales bilateral at the base Cardio: Jugular venous distension: JVD Palpation: abnormal PMI displaced PMI Rhythm: abnormal rhythm irregularly irregular Heart sounds: S1 normal heart sound present, S2 normal heart sound present, no click, no gallops, no murmurs and no rubs GI: Auscultation: normal bowel sounds Skin: General skin exam: no rashes or lesions noted Neuro: General: patient oriented x3 and no focal motor deficits Extrem: General: Yes no clubbing, cyanosis or edema Psych: Appearance: grossly normal Objective Labs and Meds 05/25/24 07:07 05/25/24 07:07 Lab results: Laboratory Results - last 24 hr 05/24/24 05/25/24 14:19 07:07 WBC 7.5 7.0 RBC 4.70 4.93 Hgb 14.0 14.5 Hct 40.3 L 42.5 MCV 85.7 86.2 MCH 29.8 29.4 MCHC 34.7 34.1 RDW 13.3 13.3 Plt Count 210 209 MPV 11.9 11.8 Immature Gran % (Auto) 0.1 0.1 Neut % (Auto) 79.0 H 68.8 Lymph % (Auto) 12.7 L 20.5 [place] % (Auto) 6.3 7.5 Eos % (Auto) 0.8 2.0 Baso % (Auto) 1.1 1.1 Lymph # (Auto) 1.0 L 1.4 [place] # (Auto) 0.5 0.5 Eos # (Auto) 0.1 0.1 Baso # (Auto) 0.1 0.1 Abs Immat Gran (auto) 0.01 0.01 Absolute Neuts (auto) 5.9 4.8 Absolute Nucleated RBC 0.000 0.000 Nucleated RBC % (auto) 0.0 0.0 PT 17.7 H INR 1.5 H Sodium 141 143 Potassium 3.0 L D 3.5 Chloride 107 108 Carbon Dioxide 25 27 Anion Gap 12 12 BUN 18 H 16 Creatinine 1.20 1.06 Estim Creat Clear Calc 61.2 68.7 Estimated GFR > 60 > 60 Random Glucose 184 H 106 Calcium 9.3 9.4 Total Bilirubin 0.7 AST 18 ALT 29 Alkaline Phosphatase 70 Troponin I High Sens 18.2 B-Natriuretic Peptide 690 H Total Protein 6.4 L Albumin 3.9 Influenza Type A (PCR) NEGATIVE Influenza Type B (PCR) NEGATIVE RSV RNA Qual (PCR) NEGATIVE SARS-CoV-2 RNA (RT-PCR) NEGATIVE Imaging Radiologist's impression: Impressions Chest X-Ray 05/24/24 14:55 IMPRESSION: Mild vascular congestion and bibasilar atelectasis. Trace of left pleural effusion. Electronically signed by: Terry Corona MD 05/24/2024 04:39 PM EDT RP Assessment and Plan (1) Decompensated heart failure: Status: Acute Patient admitted with acute decompensated congestive heart failure with severe LV systolic dysfunction past, nonischemic cardiomyopathy. Lead appears to be still in heart failure. Continue with IV diuresis with Lasix. Strict intake and output chart needs to be pursued. Continue Aldactone, and metoprolol therapy. Increase Entresto to 49-51 mg b.i.d.. Add Jardiance 10 mg to his regimen. Continue to monitor his electrolytes and basic metabolic profile. Also follow-up BNP tomorrow. Replace potassium aggressively. (2) Persistent atrial fibrillation: Status: Acute Persistent rate control atrial fibrillation. Converted very rapidly after cardioversion in March. Plan for outpatient cardioversion. Has had recurrent heart failure I think benefit from rhythm control approach. Continue amiodarone therapy. He has been saying that he is compliant with his Eliquis therapy. His INRs 1.5 and suggestive of him taking his direct oral anticoagulant indirectly. I would keep him NPO past midnight Monday night into Monday and plan for synchronized cardioversion on Monday. Will follow with him Procedures Date of Service Date of Service: 05/25/24
[2024-05-25 11:59] VITALS: BP 109/78; PULSE 66
[2024-05-25] MEDS: Apixaban 5 MG TABLET PO ×2 (11:59→20:52)
[2024-05-25] MEDS: Metoprolol Succinate ER 25 MG TAB.ER.24H PO (11:59)
[2024-05-25] MEDS: Aspirin Enteric Coated 81 MG TABLET.DR PO (11:59)
[2024-05-25] MEDS: Atorvastatin Calcium 80 MG TABLET PO (11:59)
[2024-05-25] MEDS: Amiodarone HCL 200 MG TABLET PO (12:00)
[2024-05-25] MEDS: Spironolactone 25 MG TABLET PO (12:00)
[2024-05-25] MEDS: Furosemide 40 MG/4 ML VIAL IVPUSH (12:00)
[2024-05-25] MEDS: Sacubitril/Valsartan 24/26 1 TAB TABLET PO (12:00)
[2024-05-25 16:00] VITALS: BP 98/64; PULSE 73; RESP 16; TEMP 36.3; O2SAT 96
[2024-05-25 20:00] VITALS: BP 90/58; PULSE 85; RESP 16; TEMP 37; O2SAT 98
[2024-05-25] MEDS: Tamsulosin HCL 0.4 MG CAPSULE PO (20:50)
[2024-05-25] MEDS: traZODone HCL 100 MG TABLET 200 MG PO (20:50)
[2024-05-25] MEDS: Ibuprofen 800 MG TABLET PO (20:52)
--- NOTE | 2024-05-26 03:34 | PC.NURSE ---
Pt's BP at 1999 was 90/58. Dr Crespo made aware and 2100 Entresto held. Previous nurse held 1800 Lasix.
[2024-05-26 04:00] VITALS: BP 120/63; PULSE 73; RESP 73; TEMP 36.4; O2SAT 94
[2024-05-26 06:00] VITALS: BMI 37.4
[2024-05-26 06:34] LABS: B Type Natriuretic Peptide 286 pg/mL (<100)
[2024-05-26 08:00] VITALS: BP 116/72; PULSE 68; RESP 16; TEMP 36.7; O2SAT 96
--- NOTE | 2024-05-26 08:40 | HO.PM.IMPN ---
Subjective Subjective Date of Service: 05/26/24 Review of Systems Follow up CHF Feels better, sob has subsided Physical Exam Vital Signs: Vital Signs: Last Vital Signs Temp 98.1 F 05/26/24 08:00 Pulse 68 05/26/24 08:00 Resp 16 05/26/24 08:00 BP 116/72 05/26/24 08:00 Pulse Ox 96 05/26/24 08:00 O2 Del Method Room Air 05/26/24 08:00 BMI result Body Mass Index 37.4 Appearing in no acute distress lung sounds are clear to auscultation heart regular rate rhythm, clear S1, S2 positive bowel sounds, abdomen is soft, nontender neuro patient is alert x3, no focal deficits Objective Data Active Medications Acetaminophen (Acetaminophen 325 Mg Tablet) 650 mg PO Q6H PRN PRN Reason: Pain, Mild (Pain Scale 1-3), fever or headache Amiodarone HCl (Amiodarone Hcl 200 Mg Tablet) 200 mg PO DAILY [facility] Last Admin: 05/25/24 12:00 Dose: 200 mg Documented By: HARPREET Apixaban (Apixaban 5 Mg Tablet) 5 mg PO BID [facility] Last Admin: 05/25/24 20:52 Dose: 5 mg Documented By: ALIYAH Aspirin (Aspirin Enteric Coated 81 Mg Tablet.) 81 mg PO DAILY [facility] Last Admin: 05/25/24 11:59 Dose: 81 mg Documented By: HARPREET Atorvastatin Calcium (Atorvastatin Calcium 80 Mg Tablet) 80 mg PO DAILY [facility] Last Admin: 05/25/24 11:59 Dose: 80 mg Documented By: HARPREET Calcium Carbonate (Calcium Carbonate 750 Mg Tab.Chew) 750 mg PO Q4H PRN PRN Reason: Heartburn Empagliflozin (Empagliflozin 10 Mg Tablet) 10 mg PO DAILY [facility] Furosemide (Furosemide 40 Mg/4 Ml Vial) 40 mg IVPUSH BID@0900,1800 [facility]; Protocol Last Admin: 05/25/24 20:24 Dose: Not Given Documented By: HARPREET Non-Admin Reason: Decreased Blood Pressure Ibuprofen (Ibuprofen 800 Mg Tablet) 800 mg PO TID [facility] Last Admin: 05/25/24 20:52 Dose: 800 mg Documented By: ALIYAH Magnesium Hydroxide (Milk Of Magnesia 30 Ml Oral.Susp) 30 ml PO DAILY PRN PRN Reason: Constipation Melatonin (Melatonin 3 Mg Tablet) 6 mg PO BEDTIME PRN PRN Reason: Insomnia Metoprolol Succinate (Metoprolol Succinate Er 25 Mg Tab.Er.24h) 25 mg PO DAILY [facility]; Protocol Last Admin: 05/25/24 11:59 Dose: 25 mg Documented By: HARPREET Ondansetron HCl (Ondansetron Hcl 4 Mg/2 Ml Vial) 4 mg IVPUSH Q8H PRN PRN Reason: Nausea and Vomiting Sacubitril/Valsartan (Sacubitril/Valsartan 49/51 1 Tab Tablet) 1 tab PO BID [facility]; Protocol Sodium Chloride (0.9 % Sodium Chloride Flush 3 Ml Syringe) 3 ml IVFLUSH QSHIFT [facility] Last Admin: 05/25/24 20:49 Dose: 3 ml Documented By: ALIYAH Spironolactone (Spironolactone 25 Mg Tablet) 25 mg PO DAILY [facility]; Protocol Last Admin: 05/25/24 12:00 Dose: 25 mg Documented By: HARPREET Tamsulosin HCl (Tamsulosin Hcl 0.4 Mg Capsule) 0.4 mg PO BEDTIME [facility] Last Admin: 05/25/24 20:50 Dose: 0.4 mg Documented By: ALIYAH Trazodone HCl (Trazodone Hcl 100 Mg Tablet) 200 mg PO BEDTIME [facility] Last Admin: 05/25/24 20:50 Dose: 200 mg Documented By: ALIYAH Labs 05/25/24 07:07 05/25/24 07:07 Labs: Laboratory Results - last 24 hr 05/26/24 05:35 B-Natriuretic Peptide 286 H Assessment and Plan (1) Congestive heart failure: Status: Acute Plan 63-year-old male with a PMH significant for?HFrEF w/LVEF 10-15% (03/23/24), AFib on Eliquis, HTN, CAD s/p stenting, hx of medication noncompliance, hx of alcohol use disorder, and GERD who presents to the ED with?lightheadedness, dizziness, weakness, and shortness of breath x2 days. SOB occurs with minimal exertion. Pt will be admitted to the hospital for treatment and further evaluation of acute respiratory distress secondary to acute on chronic decompensated HFrEF exacerbation. Acute on chronic respiratory distress in the setting of acute on chronic decompensated HFrEF exacerbation Patient with SOB, ANDRADE, elevated BNP, CXR with vascular congestion and pleural effusion ROSEMARY showed LVEF of 10-15% on 03/23/2024 Pt with history of medication noncompliance Lasix 40 mg IV b.i.d. Daily weights, low-salt diet Cardiology consult>continue spironolactone, increase entresto, npo after mindnight for cardioversion Monitor on telemetry Hypokalemia. Resolved Given 40 mEq p.o. in the ED Follow BMP AFib Continue metoprolol, Eliquis HLD Continue statin BPH Continue tamsulosin Full Code Attending:?Dr. Hooks DVT Prophylaxis: On Eliquis Quality Stroke Does the patient have a stroke diagnosis?: No VTE Prior VTE?: No VTE Risk Level:: Medical - moderate - high VTE Device Contraindication: Treatment Not Indicated VTE Drug Contraindication: N/A - Med Ordered
[2024-05-26] MEDS: 0.9 % Sodium Chloride Flush 3 ML SYRINGE IVFLUSH ×3 (09:51→20:23)
[2024-05-26] MEDS: Furosemide 40 MG/4 ML VIAL IVPUSH ×2 (09:51→17:05)
[2024-05-26] MEDS: Atorvastatin Calcium 80 MG TABLET PO (09:52)
[2024-05-26] MEDS: Metoprolol Succinate ER 25 MG TAB.ER.24H PO (09:52)
[2024-05-26] MEDS: Spironolactone 25 MG TABLET PO (09:52)
[2024-05-26] MEDS: Amiodarone HCL 200 MG TABLET PO (09:53)
[2024-05-26] MEDS: Empagliflozin 10 MG TABLET PO (09:53)
[2024-05-26] MEDS: Aspirin Enteric Coated 81 MG TABLET.DR PO (09:53)
[2024-05-26] MEDS: Apixaban 5 MG TABLET PO ×2 (09:53→20:20)
[2024-05-26] MEDS: Sacubitril/Valsartan 49/51 1 TAB TABLET PO (10:35)
--- NOTE | 2024-05-26 12:59 | PM.PNCARD ---
Subjective Subjective Date of Service: 05/26/24 Principal diagnosis: Persistent atrial fibrillation heart failure Interval history: Patient feeling better. Remains in atrial fibrillation. Getting all his medications. No clear orthopnea, PND. No palpitations. Review of Systems Constitutional: Reports no additional constitutional complaints Physical Exam Vital Signs: Last Vital Signs Temp 98.1 F 05/26/24 08:00 Pulse 68 05/26/24 08:00 Resp 16 05/26/24 08:00 BP 116/72 05/26/24 08:00 Pulse Ox 96 05/26/24 08:00 O2 Del Method Room Air 05/26/24 08:00 BMI result Body Mass Index 37.4 Const General: cooperative, no acute distress, alert and awake Nutritional Appearance: obese Orientation/consciousness: patient oriented x3 HEENT Head: Yes normocephalic and Yes atraumatic Neck Neck: Yes trachea midline, Yes supple and Yes JVD Resp Effort & Inspection: normal respiratory effort Auscultation: rales bilateral at the base Cardio Jugular venous distension: JVD Palpation: abnormal PMI displaced PMI Rhythm: abnormal rhythm irregularly irregular Heart sounds: S1 normal heart sound present, S2 normal heart sound present, no click, no gallops, no murmurs and no rubs GI Auscultation: normal bowel sounds Skin General skin exam: no rashes or lesions noted Neuro General: patient oriented x3 and no focal motor deficits Extrem General: Yes no clubbing, cyanosis or edema Psych Appearance: grossly normal Objective Labs and Meds 05/25/24 07:07 05/25/24 07:07 Lab results: Laboratory Results - last 24 hr 05/26/24 05:35 B-Natriuretic Peptide 286 H Progress Note: A&P Assessment and plan (1) Persistent atrial fibrillation: Status: Acute Assessment and Plan: Persistent atrial fibrillation, rate control, has been properly loaded with amiodarone. Been on oral anticoagulation therapy with apixaban as per him. Will schedule him for synchronized cardioversion tomorrow. Please keep him NPO after midnight. Continue Eliquis. Discussed the procedure with him with help of oracle identity management consultant. He understands and agrees. (2) Decompensated heart failure: Status: Acute Assessment and Plan: Decompensated congestive heart failure, clinically euvolemic and well compensated. Pursue rhythm control approach as above. Continue Entresto, spironolactone, metoprolol as well as Jardiance for his therapy. Can switch to oral diuretic therapy with Lasix. Anticipate discharge tomorrow after cardioversion. Time Spent With Patient Time: Total time managing care of this patient today ____ minutes. Progress Note: Quality Stroke Does the patient have a stroke diagnosis?: No Procedures Date of Service Date of Service: 05/26/24
--- NOTE | 2024-05-26 15:32 | MHC.CM.PN ---
CM MET WITH PT WITH A CERTIFIED FLIGHT IN[employer]CTOR PT REPORTS HE LIVES ALONE AND IS INDEPENDENT WITH CARE HE HAS NO SERVICES AND NO DME HE COMPLETED A HCP TODAY NAMING HIS FRIEND, GRETTA LYONSS, HIS AGENT PCP: BE [facility] IMM DELIVERED DCP: HOME NO SERVICES VIA PRIVATE TRANSPORT
[2024-05-26 15:54] VITALS: BP 105/71; PULSE 74; RESP 16; TEMP 36.2; O2SAT 94
[2024-05-26 20:00] VITALS: BP 97/71; PULSE 70; RESP 17; TEMP 36.3; O2SAT 96
[2024-05-26] MEDS: traZODone HCL 100 MG TABLET 200 MG PO (20:19)
[2024-05-26] MEDS: Ibuprofen 800 MG TABLET PO (20:19)
[2024-05-26] MEDS: Tamsulosin HCL 0.4 MG CAPSULE PO (20:19)
[2024-05-27] VITALS (13 sets, daily range): BP systolic 83–115; BP diastolic 51–80; PULSE 52–79; RESP 17–24; TEMP 36.1–36.9; O2SAT 93–96; BMI 36.0
[2024-05-27] MEDS: Albumin Human 25 % 100 ML IV (03:48)
[2024-05-27 08:23] LABS: Glucose, Whole Blood 94 mg/dL (60-115)
[2024-05-27] MEDS: Furosemide 40 MG/4 ML VIAL IVPUSH (10:04)
[2024-05-27] MEDS: Apixaban 5 MG TABLET PO ×2 (10:04→21:07)
--- NOTE | 2024-05-27 10:04 | P.PNIM_ITS ---
Subjective Subjective Date of Service: 05/27/24 Review of Systems Follow up CHF Feels better, sob has subsided Physical Exam 2 Vital Signs: Vital Signs: Last Vital Signs Temp 97.3 F 05/27/24 07:54 Pulse 79 05/27/24 07:54 Resp 18 05/27/24 07:54 BP 115/58 L 05/27/24 07:54 Pulse Ox 96 05/27/24 07:54 O2 Del Method Room Air 05/27/24 07:54 BMI result Body Mass Index 36.0 Appearing in no acute distress lung sounds are clear to auscultation heart regular rate rhythm, clear S1, S2 positive bowel sounds, abdomen is soft, nontender neuro patient is alert x3, no focal deficits Objective Data Active Medications Acetaminophen (Acetaminophen 325 Mg Tablet) 650 mg PO Q6H PRN PRN Reason: Pain, Mild (Pain Scale 1-3), fever or headache Amiodarone HCl (Amiodarone Hcl 200 Mg Tablet) 200 mg PO DAILY [facility]S AT [facility] Last Admin: 05/26/24 09:53 Dose: 200 mg Documented By: JIMI Apixaban (Apixaban 5 Mg Tablet) 5 mg PO BID [facility] 234 B[facility]S AT [facility] Last Admin: 05/26/24 20:20 Dose: 5 mg Documented By: BOBBI Aspirin (Aspirin Enteric Coated 81 Mg Tablet.) 81 mg PO DAILY [facility] 234 B[facility]S AT [facility] Last Admin: 05/26/24 09:53 Dose: 81 mg Documented By: JIMI Atorvastatin Calcium (Atorvastatin Calcium 80 Mg Tablet) 80 mg PO DAILY [facility] 234 B[facility]S AT [facility] Last Admin: 05/26/24 09:52 Dose: 80 mg Documented By: JIMI Calcium Carbonate (Calcium Carbonate 750 Mg Tab.Chew) 750 mg PO Q4H PRN PRN Reason: Heartburn Empagliflozin (Empagliflozin 10 Mg Tablet) 10 mg PO DAILY [facility] 234 B[facility]S AT [facility] Last Admin: 05/27/24 09:54 Dose: Not Given Documented By: MONROE Non-Admin Reason: hold per Furosemide (Furosemide 40 Mg/4 Ml Vial) 40 mg IVPUSH BID@0900,1800 [facility]CLUDE 234 BEDS AT [facility]; Protocol Last Admin: 05/26/24 17:05 Dose: 40 mg Documented By: JIMI Ibuprofen (Ibuprofen 800 Mg Tablet) 800 mg PO TID [facility] 234 B[facility]S AT [facility] Last Admin: 05/26/24 20:19 Dose: 800 mg Documented By: BOBBI Magnesium Hydroxide (Milk Of Magnesia 30 Ml Oral.Susp) 30 ml PO DAILY PRN PRN Reason: Constipation Melatonin (Melatonin 3 Mg Tablet) 6 mg PO BEDTIME PRN PRN Reason: Insomnia Metoprolol Succinate (Metoprolol Succinate Er 25 Mg Tab.Er.24h) 25 mg PO DAILY [facility] 234 [facility]S AT [facility]; Protocol Last Admin: 05/26/24 09:52 Dose: 25 mg Documented By: JIMI Ondansetron HCl (Ondansetron Hcl 4 Mg/2 Ml Vial) 4 mg IVPUSH Q8H PRN PRN Reason: Nausea and Vomiting Sacubitril/Valsartan (Sacubitril/Valsartan 49/51 1 Tab Tablet) 1 tab PO BID [facility] 234 [facility]S AT [facility]; Protocol Last Admin: 05/26/24 20:18 Dose: Not Given Documented By: BOBBI Non-Admin Reason: BP low Sodium Chloride (0.9 % Sodium Chloride Flush 3 Ml Syringe) 3 ml IVFLUSH QSHIFT [facility]CLUDE 234 BEDS AT [facility] Last Admin: 05/26/24 20:23 Dose: 3 ml Documented By: BOBBI Spironolactone (Spironolactone 25 Mg Tablet) 25 mg PO DAILY [facility] 234 B[facility]S AT [facility]; Protocol Last Admin: 05/26/24 09:52 Dose: 25 mg Documented By: JIMI Tamsulosin HCl (Tamsulosin Hcl 0.4 Mg Capsule) 0.4 mg PO BEDTIME [facility] 234 BEDS AT [facility] Last Admin: 05/26/24 20:19 Dose: 0.4 mg Documented By: BOBBI Trazodone HCl (Trazodone Hcl 100 Mg Tablet) 200 mg PO BEDTIME [facility] 234 BEDS AT [facility] Last Admin: 05/26/24 20:19 Dose: 200 mg Documented By: BOBBI Labs 05/25/24 07:07 05/25/24 07:07 Labs: Laboratory Results - last 24 hr 05/27/24 08:18 POC Glucose 94 Assessment and Plan (1) Congestive heart failure: Status: Acute Plan 63-year-old male with a PMH significant for?HFrEF w/LVEF 10-15% (03/23/24), AFib on Eliquis, HTN, CAD s/p stenting, hx of medication noncompliance, hx of alcohol use disorder, and GERD who presents to the ED with?lightheadedness, dizziness, weakness, and shortness of breath x2 days. SOB occurs with minimal exertion. Pt will be admitted to the hospital for treatment and further evaluation of acute respiratory distress secondary to acute on chronic decompensated HFrEF exacerbation. Acute on chronic respiratory distress in the setting of acute on chronic decompensated HFrEF exacerbation Patient with SOB, ANDRADE, elevated BNP, CXR with vascular congestion and pleural effusion ROSEMARY showed LVEF of 10-15% on 03/23/2024 Pt with history of medication noncompliance Lasix 40 mg IV b.i.d. Daily weights, low-salt diet Cardiology consult>continue spironolactone, increase entresto npo for cardioversion today Monitor on telemetry Hypokalemia. Resolved Given 40 mEq p.o. in the ED Follow BMP AFib Continue metoprolol, Eliquis HLD Continue statin BPH Continue tamsulosin Full Code Attending:?Dr. De La Vega DVT Prophylaxis: On Eliquis Quality Stroke Does the patient have a stroke diagnosis?: No VTE Prior VTE?: No VTE Risk Level:: Medical - moderate - high VTE Device Contraindication: Treatment Not Indicated VTE Drug Contraindication: N/A - Med Ordered
[2024-05-27] MEDS: 0.9 % Sodium Chloride Flush 3 ML SYRINGE IVFLUSH ×3 (10:12→21:08)
--- NOTE | 2024-05-27 10:50 | P.PNCA_ITS ---
Subjective Subjective Date of Service: 05/27/24 Principal diagnosis: Persistent atrial fibrillation heart failure Interval history: Patient states he feels okay. Awaiting cardioversion today. Review of Systems Review of Systems Yes all other systems are reviewed and are negative Constitutional: Reports as per HPI and Reports no additional constitutional complaints Eyes: Reports as per HPI and Denies no additional eye complaints Denies system reviewed and no additional complaints, except as documented and Reports as per HPI Cardiovascular: Reports as per HPI, Reports no additional cardiovascular complaints, Denies acrocyanosis, Denies cool extremities, Denies chest pain, Denies leg edema, Denies lightheadedness, Denies palpitations and Denies dyspnea Respiratory: Reports as per HPI, Denies no additional respiratory complaints and Denies dyspnea Gastrointestinal: Reports as per HPI and Denies no additional gastrointestinal complaints Genitourinary: Reports no additional male genitourinary complaints and Reports as per HPI Musculoskeletal: Reports no additional musculoskeletal complaints and Reports as per HPI Skin/Breast: Reports system reviewed and no additional complaints, except as docu Reports system reviewed and no additional complaints, except as documented and Reports as per HPI Psychiatric: Reports no additional psychiatric complaints and Reports as per HPI Endocrine: Reports no additional endocrine complaints, Reports as per HPI and Denies palpitations Hematologic/Lymphatic: Reports no additional hematologic/lymphatic complaints and Reports as per HPI Allergic/Immunologic: Reports no additional allergic/immunologic complaints and Reports as per HPI Physical Exam Vital Signs: Last Vital Signs Temp 97.3 F 05/27/24 07:54 Pulse 79 05/27/24 07:54 Resp 18 05/27/24 07:54 BP 115/58 L 05/27/24 10:04 Pulse Ox 96 05/27/24 07:54 O2 Del Method Room Air 05/27/24 07:54 BMI result Body Mass Index 36.0 Const General: comfortable and no acute distress Orientation/consciousness: patient oriented x3 HEENT Other: Unremarkable Head: Yes normal to inspection Neck Neck: Yes normal visual inspection Chest Chest palpation & inspection: normal inspection of the chest Resp Auscultation: clear to auscultation bilaterally Cardio Palpation: normal PMI Heart sounds: S1 normal heart sound present, S2 normal heart sound present, no gallops, no murmurs and no rubs GI Palpation (GI): Soft to palpation Back/Spine/Pelvis Other: unremarkable Skin General skin exam: no rashes or lesions noted Neuro General: patient oriented x3 Extrem General: Yes normal to inspection Psych Mental Status: mental status grossly normal Objective Labs and Meds 05/25/24 07:07 05/25/24 07:07 Lab results: Laboratory Results - last 24 hr 05/27/24 08:18 POC Glucose 94 Progress Note: A&P Assessment and plan (1) Persistent atrial fibrillation: Status: Acute Assessment and Plan: Discussed with patient using aerial photograph interpreter. He states he feels okay. He has been taking anticoagulation regularly without any interruptions. He is NPO. Plan for cardioversion today. He did take 1 dose of Jardiance but that is only dose and discussed with Anesthesiology, and okay to proceed. (2) Decompensated heart failure: Status: Acute Assessment and Plan: Clinically, no overt volume overload. He remains on guideline based medical therapy including beta-blockers, Entresto, spironolactone, Jardiance. We will decide on perioperative management of Jardiance but hold today. Time Spent With Patient Time: Total time managing care of this patient today ____ minutes. Progress Note: Quality Stroke Does the patient have a stroke diagnosis?: No Procedures Date of Service Date of Service: 05/27/24
--- NOTE | 2024-05-27 11:23 | MHC.SHP ---
Pre-Procedural Eval Section A - 24 Hr Update-Section A only Date of Service: 05/27/24 The patient is an INPATIENT: Yes Section B - Complete if H&P > 30 days Chief Complaint: Dyspnes Allergies: Allergies Allergy/AdvReac Type Severity Reaction Status Date / Time No Known Allergies Allergy Verified 05/24/24 13:29 [No Known Allergies*] Plan I have reviewed the history and physical and performed a pertinent physical examination on my patient. No changes have occurred unless specified. Time Spent With Patient Time: Total time managing care of this patient today ____ minutes.
--- NOTE | 2024-05-27 11:24 | HO.CARDIVERS ---
Cardioversion Procedure Note Cardioversion Date of Procedure: 05/27/2024 Pre-Op Diagnosis: Atrial fibrillation Post-Op Diagnosis: Sinus rhythm Consent: Informed consent obtained. Procedure: After informed consent was obtained, patient was taken to the PACU. The patient was then positioned appropriately. The cardioversion pads were placed in anteroposterior position. Once under anesthesia, 120 joules of synchronized shock was administered. The rhythm converted from atrial fibrillation to sinus rhythm. Patient remained in sinus rhythm after the end of procedure. Complications: None Impression: Successful cardioversion from atrial fibrillation to sinus. Recommendations: Continue amiodarone, anticoagulation and guideline based medical therapy for cardiomyopathy.
--- NOTE | 2024-05-27 11:40 | ECG_ITS ---
Test Reason : s/p cardioversion Blood Pressure : / mmHG Vent. Rate : 066 BPM Atrial Rate : 066 BPM P-R Int : 174 ms QRS Dur : 148 ms QT Int : 470 ms P-R-T Axes : 065 -39 072 degrees QTc Int : 492 ms Normal sinus rhythm Left axis deviation Left bundle branch block Abnormal ECG When compared with ECG of 24-MAY-2024 14:05, Sinus rhythm has replaced Atrial fibrillation Referred By: Jacque Noe Electronically Signed By:JACQUE NOE
--- NOTE | 2024-05-27 11:48 | P.CONAN_ITS ---
HPI - Anesthesia Eval Consult details Narrative: 63 yo M admitted with decompensated heart failure and atrial fibrillation. Echo in 03/2024 showed EF of 10-15%. Received first dose of Jardiance 24 hours ago. 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 pylori) (Acute) GERD (gastroesophageal reflux disease) (Acute) Breast pain (Acute) Dyslipidemia (Acute) Essential hypertension (Acute) Obese (Acute) Abdominal mass (Acute) NICM (nonischemic cardiomyopathy) (Acute) Past Medical History Medical History (Updated 05/25/24 @ 11:31 by Marcos Osuna MD) Atrial flutter Atrial fibrillation with rapid ventricular response Atrial fibrillation Alcohol use Hyperlipidemia LDL goal <70 Diabetes mellitus Chronic sore throat Colon perforation Foreign body in sigmoid colon Onychomycosis 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 pylori) GERD (gastroesophageal reflux disease) Breast pain Dyslipidemia Essential hypertension Obese Abdominal mass Insomnia Family History Family History Father No problems noted. Mother Kidney failure Family history of problems with anesthesia: No Surgical History Surgical History H/O abdominal surgery History of colonoscopy History of Problems with Anesthesia: No Social History Social History Household Members: None Housing: Apartment Do you presently have visiting nurse or other home services: Yes (inspector quality assurance services just set up; currently looking for a inspector quality assurance) Alcohol intake: former Patient Tobacco Use Status: Former Tobacco user Tobacco use type: Cigarette e-Cigarette/Vaping Use: Never Used Second Hand Smoke Exposure: No service: No Current occupational status: retired Cognitive needs: No Hearing needs: No Vision needs: No Meds Allergies Allergy/AdvReac Type Severity Reaction Status Date / Time No Known Allergies Allergy Verified 05/24/24 13:29 [No Known Allergies*] Active Medications: Current Medications Acetaminophen (Acetaminophen 325 Mg Tablet) 650 mg PO Q6H PRN PRN Reason: Pain, Mild (Pain Scale 1-3), fever or headache Amiodarone HCl (Amiodarone Hcl 200 Mg Tablet) 200 mg PO DAILY [facility] Last Admin: 05/27/24 10:12 Dose: Not Given Apixaban (Apixaban 5 Mg Tablet) 5 mg PO BID [facility] Last Admin: 05/27/24 10:04 Dose: 5 mg Aspirin (Aspirin Enteric Coated 81 Mg Tablet.Dr) 81 mg PO DAILY [facility] Last Admin: 05/27/24 10:13 Dose: Not Given Atorvastatin Calcium (Atorvastatin Calcium 80 Mg Tablet) 80 mg PO DAILY [facility] Last Admin: 05/27/24 10:13 Dose: Not Given Calcium Carbonate (Calcium Carbonate 750 Mg Tab.Chew) 750 mg PO Q4H PRN PRN Reason: Heartburn Empagliflozin (Empagliflozin 10 Mg Tablet) 10 mg PO DAILY [facility] Last Admin: 05/27/24 09:54 Dose: Not Given Furosemide (Furosemide 40 Mg/4 Ml Vial) 40 mg IVPUSH BID@0900,1800 [facility]; Protocol Last Admin: 05/27/24 10:04 Dose: 40 mg Ibuprofen (Ibuprofen 800 Mg Tablet) 800 mg PO TID [facility] Last Admin: 05/27/24 10:13 Dose: Not Given Magnesium Hydroxide (Milk Of Magnesia 30 Ml Oral.Susp) 30 ml PO DAILY PRN PRN Reason: Constipation Melatonin (Melatonin 3 Mg Tablet) 6 mg PO BEDTIME PRN PRN Reason: Insomnia Metoprolol Succinate (Metoprolol Succinate Er 25 Mg Tab.Er.24h) 25 mg PO DAILY [facility]; Protocol Last Admin: 05/27/24 10:14 Dose: Not Given Ondansetron HCl (Ondansetron Hcl 4 Mg/2 Ml Vial) 4 mg IVPUSH Q8H PRN PRN Reason: Nausea and Vomiting Sacubitril/Valsartan (Sacubitril/Valsartan 49/51 1 Tab Tablet) 1 tab PO BID [facility]; Protocol Last Admin: 05/27/24 10:15 Dose: Not Given Sodium Chloride (0.9 % Sodium Chloride Flush 3 Ml Syringe) 3 ml IVFLUSH QSHIFT [facility] Last Admin: 05/27/24 10:12 Dose: 3 ml Spironolactone (Spironolactone 25 Mg Tablet) 25 mg PO DAILY [facility]; Protocol Last Admin: 05/27/24 10:15 Dose: Not Given Tamsulosin HCl (Tamsulosin Hcl 0.4 Mg Capsule) 0.4 mg PO BEDTIME [facility] Last Admin: 05/26/24 20:19 Dose: 0.4 mg Trazodone HCl (Trazodone Hcl 100 Mg Tablet) 200 mg PO BEDTIME [facility] Last Admin: 05/26/24 20:19 Dose: 200 mg Home Medications ?Medication ?Instructions ?Recorded ?Confirmed ?Last Taken ?Type trazodone 100 mg tablet 200 mg PO BEDTIME 03/19/24 05/24/24 03/19/24 History ibuprofen 800 mg tablet 800 mg PO TID 04/17/24 05/24/24 Unknown History metoprolol succinate 50 mg 25 mg PO DAILY 04/17/24 05/24/24 Unknown History tablet,extended release 24 hr sacubitril 24 mg-valsartan 26 mg 1 tab PO BID 04/17/24 05/24/24 Unknown History tablet (Entresto) spironolactone 25 mg tablet 25 mg PO DAILY 04/17/24 05/24/24 Unknown History aspirin 81 mg tablet,delayed 81 mg PO DAILY 05/24/24 05/24/24 Unknown History release Exam Exam Date and Time: 05/27/24 1130 Height,Weight and Vital Signs: Height 5 ft 2 in Weight 89.2 kg Last Vital Signs Temp 98.5 F 05/27/24 11:09 Pulse 79 05/27/24 11:09 Resp 18 05/27/24 11:09 BP 102/54 L 05/27/24 11:09 Pulse Ox 95 05/27/24 11:09 O2 Del Method Nasal Cannula 05/27/24 11:09 O2 Flow Rate 2 05/27/24 11:09 Pertinent Lab Results Pertinent Lab Results: Laboratory Tests 05/24/24 05/25/24 05/26/24 14:19 07:07 05:35 WBC 7.5 7.0 RBC 4.70 4.93 Hgb 14.0 14.5 Hct 40.3 L 42.5 MCV 85.7 86.2 MCH 29.8 29.4 MCHC 34.7 34.1 RDW 13.3 13.3 Plt Count 210 209 MPV 11.9 11.8 Immature Gran % (Auto) 0.1 0.1 Neut % (Auto) 79.0 H 68.8 Lymph % (Auto) 12.7 L 20.5 Dickenson % (Auto) 6.3 7.5 Eos % (Auto) 0.8 2.0 Baso % (Auto) 1.1 1.1 Lymph # (Auto) 1.0 L 1.4 Dickenson # (Auto) 0.5 0.5 Eos # (Auto) 0.1 0.1 Baso # (Auto) 0.1 0.1 Abs Immat Gran (auto) 0.01 0.01 Absolute Neuts (auto) 5.9 4.8 Absolute Nucleated RBC 0.000 0.000 Nucleated RBC % (auto) 0.0 0.0 PT 17.7 H INR 1.5 H Sodium 141 143 Potassium 3.0 L D 3.5 Chloride 107 108 Carbon Dioxide 25 27 Anion Gap 12 12 BUN 18 H 16 Creatinine 1.20 1.06 Estim Creat Clear Calc 61.2 68.7 Estimated GFR > 60 > 60 POC Glucose Random Glucose 184 H 106 Calcium 9.3 9.4 Total Bilirubin 0.7 AST 18 ALT 29 Alkaline Phosphatase 70 Troponin I High Sens 18.2 B-Natriuretic Peptide 690 H 286 H Total Protein 6.4 L Albumin 3.9 Influenza Type A (PCR) NEGATIVE Influenza Type B (PCR) NEGATIVE RSV RNA Qual (PCR) NEGATIVE SARS-CoV-2 RNA (RT-PCR) NEGATIVE 05/27/24 08:18 WBC RBC Hgb Hct MCV MCH MCHC RDW Plt Count MPV Immature Gran % (Auto) Neut % (Auto) Lymph % (Auto) Dickenson % (Auto) Eos % (Auto) Baso % (Auto) Lymph # (Auto) Dickenson # (Auto) Eos # (Auto) Baso # (Auto) Abs Immat Gran (auto) Absolute Neuts (auto) Absolute Nucleated RBC Nucleated RBC % (auto) PT INR Sodium Potassium Chloride Carbon Dioxide Anion Gap BUN Creatinine Estim Creat Clear Calc Estimated GFR POC Glucose 94 Random Glucose Calcium Total Bilirubin AST ALT Alkaline Phosphatase Troponin I High Sens B-Natriuretic Peptide Total Protein Albumin Influenza Type A (PCR) Influenza Type B (PCR) RSV RNA Qual (PCR) SARS-CoV-2 RNA (RT-PCR) Airway Mallampati Class: I TM Dist: >3cm Neck ROM: Full Loose/Missing/Broken Teeth: Yes (multiple broken and missing teeth) Heart: S1S2 Lungs: CTAB Assessment and Plan Assessment Anesthesia Assessment: Anesthesia Plan Discussed and Chart Reviewed Final Anesthetic Review Family History of Problems with Anesthesia: No History of Problems with Anesthesia: No NPO: Yes ASA Class: IV and Emergency Final Preanesthetic Review: No Changes in Pt Med Stat, Meds/Allgs Chart Reviewed, Consent Obtained/Reviewed (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 and Plan Disposition: Standard PACU
[2024-05-27] MEDS: Sacubitril/Valsartan 49/51 1 TAB TABLET PO (21:07)
[2024-05-27] MEDS: traZODone HCL 100 MG TABLET 200 MG PO (21:07)
[2024-05-27] MEDS: Tamsulosin HCL 0.4 MG CAPSULE PO (21:07)
[2024-05-27] MEDS: Acetaminophen 325 MG TABLET 650 MG PO (21:08)
[2024-05-28] VITALS: BP 96/59; PULSE 64; RESP 18; TEMP 37.1; O2SAT 92
[2024-05-28 03:21] VITALS: BP 98/65; PULSE 66; RESP 18; TEMP 36.3; O2SAT 100
[2024-05-28 07:15] VITALS: BP 105/63; PULSE 59; RESP 14; TEMP 36.3; O2SAT 96
--- NOTE | 2024-05-28 08:11 | HO.POSTANES ---
Post Anesthesia Evaluation Post Anesthesia Evaluation Date of Service: 05/28/24 Vital Signs: Vital Signs Temp Pulse Resp BP Pulse Ox O2 Del Method 05/28/24 07:15 97.4 F 59 14 105/63 96 Room Air 05/28/24 03:21 97.4 F 66 18 98/65 100 Room Air 05/28/24 00:00 98.7 F 64 18 96/59 L 92 Room Air 05/27/24 21:07 115/77 Anesthesia: Monitored Mental Status: Awake Pain Control: Satisfactory Nausea/Vomiting: None Hydration: Adequate Anesthesia-Related Issues: No Anes. Related Issues
[2024-05-28] MEDS: Metoprolol Succinate ER 25 MG TAB.ER.24H PO (09:00)
[2024-05-28] MEDS: Empagliflozin 10 MG TABLET PO (09:00)
[2024-05-28] MEDS: Aspirin Enteric Coated 81 MG TABLET.DR PO (09:00)
[2024-05-28] MEDS: Sacubitril/Valsartan 49/51 1 TAB TABLET PO (09:00)
[2024-05-28] MEDS: Amiodarone HCL 200 MG TABLET PO (09:00)
[2024-05-28] MEDS: Atorvastatin Calcium 80 MG TABLET PO (09:01)
[2024-05-28] MEDS: Spironolactone 25 MG TABLET PO (09:01)
[2024-05-28] MEDS: Furosemide 40 MG TABLET PO (09:01)
[2024-05-28] MEDS: Apixaban 5 MG TABLET PO (09:01)
[2024-05-28] MEDS: 0.9 % Sodium Chloride Flush 3 ML SYRINGE IVFLUSH (09:08)
--- NOTE | 2024-05-28 09:14 | P.DS_ITS ---
DS: Providers Provider Date of Service: 05/28/24 Date of admission: 05/24/24 20:43 Primary care physician: Gina Le MD Consults: 05/24/24 21:35 Consult to Cardiology Routine Consulting Provider: [facility] Reason for consultation: CHF exacerbation, ?new LBBB DS: Diagnosis Discharge Diagnosis (1) Persistent atrial fibrillation: Status: Acute (2) Decompensated heart failure: Status: Acute DS: Summary Hospital Course Hospital Course: History and physical as per admitting provider. Pt is a 63-year-old male with a PMH significant for?HFrEF w/LVEF 10-15% (03/23/24), AFib on Eliquis, HTN, CAD s/p stenting, hx of medication noncompliance, hx of alcohol use disorder, and GERD who presents to the ED with?lightheadedness, dizziness, weakness, and shortness of breath x2 days. SOB occurs with minimal exertion. Has not been able to sleep due to orthopnea. Also complains of cough occasionally productive of whitish sputum. Subjective chills but no fever. Has been experiencing some lower abdominal discomfort, but no noticeable abdominal swelling. Denies chest pain/pressure, palpitations. Occasional headache. Patient was last admitted to this hospital on 03/19-03/24 and treated for CHF exacerbation. During hospital stay was noted to have new onset AFib with RVR only partially controlled metoprolol. Had VINICIO with cardioversion and remained in sinus rhythm during stay. Since then patient also was admitted to a hospital in [facility] [address] for acute exacerbation of heart failure. During office visit to Cardiology on 04/17 patient was noted to again be back in AFib with variable block. Reports at that time apparently was only taking Eliquis once daily instead of b.i.d.. In the ED pt was tachypneic up to 26 and mildly hypertensive at 130/91. Labs were significant for potassium 3.0, and BNP 690 (elevated from 219 on 03/23/2024), otherwise grossly unremarkable. No leukocytosis. Stable H&H. Renal and h epatic function WNL. Tested negative for flu, COVID, and RSV. CXR showed mild vascular congestion and bibasilar atelectasis with trace left pleural effusion. EKG demonstrated AFib with new LBBB but no evidence of significant ST elevations or depressions. Pt was treated with potassium chloride and furosemide 40 mg IV. Pt will be admitted to the hospital for treatment and further evaluation of acu te respiratory distress secondary to acute CHF exacerbation. 63-year-old man treated for acute on chronic respiratory failure in the setting of acute on chronic decompensated heart failure with reduced ejection fraction exacerbation. Vinicio from 03/23/2024 showed LVEF of 10-15% with a history of medication noncompliance. He was treated with IV Lasix 40 mg IV b.i.d., seen evaluated by Cardiology who recommended increasing Entresto and adding Jardiance. He had a successful cardioversion on 05/27/2024 and is now in sinus rhythm. He was to continue all of his home medications including the addition of the Jardiance and increase in Entresto. He was to follow up with Cardiology outpatient as needed. Hypokalemia. Resolved with repletion Atrial fibrillation, paroxysmal. Now in sinus rhythm. Continue Eliquis, metoprolol, amiodarone Hyperlipidemia. Continue statin BPH. Continue tamsulosin Time Attestation Discharge Coordination Time (in mins): 32 Quality: Safe Use of Opioids Does Pt have an Active Cancer Diagnosis on the Problem List?: No Quality: Stroke Does the patient have a stroke diagnosis?: No Physical Exam Vital Signs: Vital Signs: Last Vital Signs Temp 97.4 F 05/28/24 07:15 Pulse 59 05/28/24 07:15 Resp 14 05/28/24 07:15 BP 105/63 05/28/24 07:15 Pulse Ox 96 05/28/24 07:15 O2 Del Method Room Air 05/28/24 07:15 O2 Flow Rate 2 05/27/24 12:13 BMI result Body Mass Index 36.0 Appearing in no acute distress head is normocephalic atraumatic eyes pupils are PERRLA sclera is anicteric mouth throat mucous membranes are intact and moist neck is supple no lymphadenopathy, no JVD noted lung sounds are clear to auscultation heart regular rate rhythm, clear S1, S2 positive bowel sounds, abdomen is soft, nontender neuro patient is alert x3, no focal deficits DS: Data Data Completed and Pending Completed studies during hospitalization [Text1]: Procedures Restorationist of Cardiac Rhythm, Single (03/19/24) Ultrasonography of Heart with Aorta, Transesophageal (03/19/24) Discharge Plan Discharge Anticipated Discharge Date/Time: 05/28/24 07:03 Patient Disposition: Home, Self-Care Discharge Diagnosis: Acute on chronic respiratory failure Acute on chronic decompensated heart failure with reduced ejection fraction Hypokalemia Atrial fibrillation Referrals: Gina Davey MD [Primary Care Provider] - 1 Week Cecil Knapp MD [Physician] - 1 Week Discharge Medications: New Jardiance 10 mg Tablet 10 mg PO DAILY Qty: 30 0RF Entresto 49-51 mg Tablet 1 tab PO BID Qty: 60 0RF Protocol: Hold for SBP< HOLD for SBP < : 90 Continued atorvastatin 80 mg tablet 80 mg PO DAILY Qty: 90 3RF amiodarone 200 mg tablet 200 mg PO DAILY Qty: 90 0RF Eliquis 5 mg tablet 5 mg PO BID Qty: 180 0RF trazodone 100 mg tablet 200 mg PO BEDTIME metoprolol succinate 50 mg tablet extended release 24 hr 25 mg PO DAILY aspirin 81 mg tablet,delayed release (DR/EC) 81 mg PO DAILY (DME) blood-glucose meter [OneTouch Ultra2 Meter] Misc See Rx Instructions .Route Qty: 1 0RF Rx Instructions: As directed (DME) OneTouch Ultra Test Strip See Rx Instructions .Route Qty: 100 2RF Rx Instructions: Use 1 test strip once a day (DME) lancets [OneTouch UltraSoft 2 Lancet] 30 gauge misc See Rx Instructions .Route Qty: 100 2RF Rx Instructions: Use 1 lancet once a day (DME) lancets [FreeStyle Lancets] 28 gauge misc See Rx Instructions .Route Qty: 100 3RF Rx Instructions: Use 1 lancet once a day tamsulosin [Flomax] 0.4 mg capsule 0.4 mg PO BEDTIME Qty: 30 2RF ibuprofen 800 mg tablet 800 mg PO TID spironolactone 25 mg tablet 25 mg PO DAILY furosemide 40 mg tablet 40 mg PO BID Qty: 90 3RF Discontinued Entresto 24-26 mg tablet 1 tab PO BID Discharge Orders: Discharge Order (Routine); Ordered 05/28/24 Ordered By: [place] Diet: Advance to usual diet Activity on Discharge: As tolerated Stand Alone Forms: Patient Portal Discharge page Print Language: Greek Care Plan Goals: Successful cardioversion from atrial fibrillation to sinus rhythm Health Concerns: Acute on chronic respiratory failure Acute on chronic decompensated heart failure with reduced ejection fraction Hypokalemia Atrial fibrillation Plan of Treatment: Follow-up with primary care provider as needed Take all medications as prescribed Assessment: See discharge summary
--- NOTE | 2024-05-28 09:45 | MHC.CM.PN ---
Patient has been medically cleared for dc to home today, self care.CM met with Patient at bedside, with the assist of a [facility] [employer] [employer] and addressed IMM with him (original was given to Patient and a copy has been placed on the chart). Patient is calling for transport to home.
--- NOTE | 2024-05-28 10:48 | PM.PNCARD ---
Subjective Subjective Date of Service: 05/28/24 Principal diagnosis: Persistent atrial fibrillation heart failure Interval history: Seen around 8:30am. Patient underwent cardioversion yesterday. He states he feels fine. Review of Systems Review of Systems Yes all other systems are reviewed and are negative Constitutional: Reports as per HPI and Reports no additional constitutional complaints Eyes: Reports as per HPI and Denies no additional eye complaints Denies system reviewed and no additional complaints, except as documented and Reports as per HPI Cardiovascular: Reports as per HPI, Reports no additional cardiovascular complaints, Denies acrocyanosis, Denies cool extremities, Denies chest pain, Denies leg edema, Denies lightheadedness, Denies palpitations and Denies dyspnea Respiratory: Reports as per HPI, Denies no additional respiratory complaints and Denies dyspnea Gastrointestinal: Reports as per HPI and Denies no additional gastrointestinal complaints Genitourinary: Reports no additional male genitourinary complaints and Reports as per HPI Musculoskeletal: Reports no additional musculoskeletal complaints and Reports as per HPI Skin/Breast: Reports system reviewed and no additional complaints, except as docu Reports system reviewed and no additional complaints, except as documented and Reports as per HPI Psychiatric: Reports no additional psychiatric complaints and Reports as per HPI Endocrine: Reports no additional endocrine complaints, Reports as per HPI and Denies palpitations Hematologic/Lymphatic: Reports no additional hematologic/lymphatic complaints and Reports as per HPI Allergic/Immunologic: Reports no additional allergic/immunologic complaints and Reports as per HPI Physical Exam Vital Signs: Last Vital Signs Temp 97.4 F 05/28/24 07:15 Pulse 59 05/28/24 07:15 Resp 14 05/28/24 07:15 BP 105/63 05/28/24 07:15 Pulse Ox 96 05/28/24 07:15 O2 Del Method Room Air 05/28/24 07:15 O2 Flow Rate 2 05/27/24 12:13 BMI result Body Mass Index 36.0 Const General: comfortable and no acute distress Orientation/consciousness: patient oriented x3 HEENT Other: Unremarkable Head: Yes normal to inspection Neck Neck: Yes normal visual inspection Chest Chest palpation & inspection: normal inspection of the chest Resp Auscultation: clear to auscultation bilaterally Cardio Palpation: normal PMI Heart sounds: S1 normal heart sound present, S2 normal heart sound present, no gallops, no murmurs and no rubs GI Palpation (GI): Soft to palpation Back/Spine/Pelvis Other: unremarkable Skin General skin exam: no rashes or lesions noted Neuro General: patient oriented x3 Extrem General: Yes normal to inspection Psych Mental Status: mental status grossly normal Objective Labs and Meds 05/25/24 07:07 05/25/24 07:07 Progress Note: A&P Assessment and plan (1) Persistent atrial fibrillation: Status: Acute Assessment and Plan: Status post cardioversion yesterday. Maintaining sinus rhythm. Unremarkable telemetry. Continue amiodarone. Continue beta-blockers. Continue anticoagulation. We will arrange outpatient follow-up. (2) Decompensated heart failure: Status: Acute Assessment and Plan: Clinically, he seems compensated. On meds including beta-blockers, Entresto, spironolactone, Jardiance. Follow-up will be arranged. Time Spent With Patient Time: Total time managing care of this patient today 45 minutes. This includes time spent in review of chart, laboratory data, imaging studies, review of telemetry, counseling patient, discussion with hospitalist, RN, documentation, coordination of care. Progress Note: Quality Stroke Does the patient have a stroke diagnosis?: No Procedures Date of Service Date of Service: 05/28/24
== END 2024-05-28 10:45 | disposition home or self-care (01) | DRG 308 ==
LOC: HO.ED 19:49 → HO.EDOVER 20:49 → HO.S3 23:57 → HO.IMC 05-27 11:06
PROVIDERS: Internal Medicine; Nurse Practitioner Family; Admitting Provider Student in an Organized Health Care Education/Training Program; Emergency Provider Emergency Medicine; PCP Internal Medicine; Visit Provider Nurse Practitioner Acute Care
PROC: 5A2204Z Restoration of Cardiac Rhythm, Single (ICD-10-PCS; principal; 2024-05-27 11:00)
DX: I48.19 Other persistent atrial fibrillation (principal); I50.23 Acute on chronic systolic (congestive) heart failure; J96.21 Acute and chronic respiratory failure with hypoxia; I11.0 Hypertensive heart disease with heart failure; E87.6 Hypokalemia; N40.0 Benign prostatic hyperplasia without lower urinary tract symptoms; E78.5 Hyperlipidemia, unspecified; F10.91 Alcohol use, unspecified, in remission; Z20.822 Contact with and (suspected) exposure to COVID-19; I25.10 Atherosclerotic heart disease of native coronary artery without angina pectoris; Z95.5 Presence of coronary angioplasty implant and graft; Z23 Encounter for immunization; Z79.01 Long term (current) use of anticoagulants; Z79.82 Long term (current) use of aspirin; Z79.899 Other long term (current) drug therapy
CPT/HCPCS: 0241U; 36415; 71046; 80048; 80053; 82947; 83880; 84484; 85025; 85610; 90656; 92960; 93005; 99285; J1940; J2704; P9047

== ENCOUNTER → 2024-05-24 13:33 | Outpatient (BNV) | payer OTHER, SELFPAY | PROVIDERS: Emergency Provider Emergency Medicine; PCP Internal Medicine; Visit Provider Internal Medicine Cardiovascular Disease | DX: I48.91 Unspecified atrial fibrillation (principal) | CPT/HCPCS: 93010 ==

== ENCOUNTER 2024-05-24 20:43 | Outpatient (BNV) | payer OTHER, SELFPAY | END 2024-05-27 11:40 | PROVIDERS: Admitting Provider Student in an Organized Health Care Education/Training Program; Emergency Provider Emergency Medicine; PCP Internal Medicine; Visit Provider Internal Medicine | DX: I48.19 Other persistent atrial fibrillation (principal) | CPT/HCPCS: 93010 ==

== ENCOUNTER → 2024-05-24 20:43 | Outpatient (BNV) | payer OTHER, SELFPAY | PROVIDERS: Admitting Provider Student in an Organized Health Care Education/Training Program; Emergency Provider Emergency Medicine; PCP Internal Medicine; Visit Provider Internal Medicine Cardiovascular Disease | DX: I48.19 Other persistent atrial fibrillation (principal); I50.9 Heart failure, unspecified | CPT/HCPCS: 92960; 99222; 99233 ==

== ENCOUNTER → 2024-05-24 20:43 | Outpatient (BNV) | payer OTHER, SELFPAY | PROVIDERS: Admitting Provider Student in an Organized Health Care Education/Training Program; Emergency Provider Emergency Medicine; PCP Internal Medicine; Visit Provider Student in an Organized Health Care Education/Training Program | DX: I48.19 Other persistent atrial fibrillation (principal); I50.9 Heart failure, unspecified | CPT/HCPCS: 99223; 99232; 99239 ==

== ENCOUNTER 2024-05-30 13:12 | Outpatient (AMB) | payer OTHER, SELFPAY ==
[2024-05-30 13:13] VITALS: BP 106/62; PULSE 58; O2SAT 90; BMI 37.5
--- NOTE | 2024-05-30 13:13 | MHC.PC.OV ---
Vital Signs 05/30/24 13:13 Height 5 ft 2 in Weight 205 lb BMI 37.5 BP 106/62 Blood Pressure Location Lt brachial Position Sitting Pulse 58 Pulse Source Pulse Oximeter Pulse Oximetry (%) 90 L Oxygen Delivery Method Room Air Intake Visit Reasons: TCM [facility] 05/28 resp failure/chronic heart failure Metal Mine Inspector Required: Yes Metal Mine Inspector Language: Interpreter Name: [id number] Accompanied by: Self / Same As Patient Allergies No Known Allergies [No Known Allergies*] Allergy (Verified 05/30/24 13:17) Tobacco use date assessed: 09/11/23 Fall risk assessment: 1 Fall in past year Last assessed Fall Risk: 05/30/24 Dental Screening Dental Screen Date: 09/11/23 HPI TCM TCM Information Date of Discharge 05/29/24 Discharged From [facility] HPI Comments History of Present Illness Details 63 y/o male patient who presents to the clinic today for TCM. Pt was admitted at [facility] on 05/24/24 for Persistent A-Fib and HF. He was discharged home on 05/28/24. He was able to follow up with Cardiology in the hospital and his Entresto dose was increased to 49-51 and Jardiance 10 mg was added. He has an appointment with Cardiology 06/17/24 for follow up. Today reports feeling well. He does report problems with hearing and asking if he can have his ears examined. [facility] Medical History (Updated 05/30/24 @ 15:43 by Cande Swan NP) Atrial flutter Atrial fibrillation with rapid ventricular response Atrial fibrillation Alcohol use Hyperlipidemia LDL goal <70 Diabetes mellitus Chronic sore throat Colon perforation Foreign body in sigmoid colon Onychomycosis 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 pylori) GERD (gastroesophageal reflux disease) Breast pain Dyslipidemia Essential hypertension Obese Abdominal mass Insomnia Surgical History H/O abdominal surgery History of colonoscopy Family History Father No problems noted. Mother Kidney failure Social History Household Members: None Housing: Apartment Do you presently have visiting nurse or other home services: Yes (labor relations specialist services just set up; currently looking for a labor relations specialist) Alcohol intake: former Patient Tobacco Use Status: Former Tobacco user Tobacco use type: Cigarette e-Cigarette/Vaping Use: Never Used Second Hand Smoke Exposure: No service: No Current occupational status: retired Cognitive needs: No Hearing needs: No Vision needs: No Questionnaire PHQ-9 Over the last 2 weeks, how often have you been bothered by any of the following problems? 1. Little interest or pleasure in doing things: nearly every day 2. Feeling down, depressed, or hopeless: nearly every day 3. Trouble falling or staying asleep, or sleeping too much: several days 4. Feeling tired or having little energy: several days 5. Poor appetite or overeating: more than half the days 6. Feeling bad about yourself - or that you are a failure or have let yourself or your family down: several days 7. Trouble concentrating on things, such as reading the newspaper or watching television: not at all 8. Moving or speaking so slowly that other people could have noticed. Or the opposite - being so fidgety or restless that you have been moving around a lot more than usual: not at all 9. Thoughts that you would be better off or of hurting yourself in some way: not at all Total score: 11 Depression Screening Interpretation: Positive Depression Screening Follow-up: Existing condition, In treatment and Community Mental Health Worker F/U Depression Screening Done: Yes 86286 - PHQ-9 Billing: Yes Source: Developed by Drs. Elias Schilling, Flavio Johnson and colleagues, with an educational elroy from [employer]. Thrive Questionnaire Date Thrive assessed: 05/26/24 AUDIT C Alcohol Use Questionnaire (AUDIT-C) 1. How often do you have a drink containing alcohol?: 2-4 times a month 2. How many drinks containing alcohol do you have on a typical day when you are drinking?: 3 or 4 3. How often do you have six or more drinks on one occasion?: Never Total Score: 3 Score Reviewed/Action Taken: Yes MIGUELINA-7 AMB Questionnaire MIGUELINA-7 Date MIGUELINA - 7 assessed: 09/11/23 Source: Developed by Drs. Elias Schilling, Flavio Johnson and colleagues, with an educational elroy from [employer]. Review of Systems Const All systems reviewed & are unremarkable except as noted in HPI and below Physical exam (Primary Care) Vital Signs: Last Vital Signs Pulse 58 05/30/24 13:13 BP 106/62 05/30/24 13:13 Pulse Ox 90 L 05/30/24 13:13 Oxygen Delivery Method Room Air 05/30/24 13:13 BMI result Body Mass Index 37.5 Tobacco/Smoking Status: Tobacco use Status Tobacco use date assessed 09/11/23 05/30/24 13:19 Patient Tobacco Use Status Former Tobacco user 05/30/24 13:19 Tobacco use type Cigarette 05/30/24 13:19 e-Cigarette/Vaping Use Never Used 05/30/24 13:19 PHQ-9: PHQ-9 Score PHQ-9: Total score 11 05/30/24 13:19 Depression Screening Interpretation: Positive Depression Screening Follow-up: Existing condition, In treatment and Community Mental Health Worker F/U Thrive Assessment: Date of Thrive Assessment Date Thrive assessed 05/26/24 05/30/24 13:19 Const General: cooperative and no acute distress Nutritional Appearance: obese Orientation/consciousness: patient oriented x3 HENMT Head: Yes normocephalic Ears: external ears normal and TM's normal bilaterally General nose exam: Normal external nose present Resp Effort & Inspection: normal respiratory effort Auscultation: clear to auscultation bilaterally Cardio Heart sounds: S1 normal heart sound present and S2 normal heart sound present Neuro General: patient oriented x3, gait normal and moves all extremities Coding Level of Care Code TCM Mod MDM <= 7 Days Diagnoses Persistent atrial fibrillation I48.19 Decompensated heart failure I50.9 Congestive heart failure I50.9 Heart failure chronicity: acute on chronic Heart failure type: unspecified Bilateral hearing loss, unspecified hearing loss type H91.93 Hearing loss type: unspecified Laterality: bilateral Time Spent (min) 20 Comment Spent reviewing hospital notes and patient education. Assessment & Plan Assessment & Plan (1) Persistent atrial fibrillation: Code(s): I48.19 - Other persistent atrial fibrillation Category: Medical Plan: MANAGED BY CARDIOLOGY APPOINTMENT SCHEDULED ON 06/17/24. (2) Decompensated heart failure: Code(s): I50.9 - Heart failure, unspecified Category: Medical Plan: MANAGED BY CARDIOLOGY APPOINTMENT SCHEDULED ON 06/17/24. (3) Congestive heart failure: Code(s): I50.9 - Heart failure, unspecified Category: Medical Qualifiers: Heart failure chronicity: acute on chronic Heart failure type: unspecified Qualified Code(s): I50.9 - Heart failure, unspecified Plan: MANAGED BY CARDIOLOGY APPOINTMENT SCHEDULED ON 06/17/24. (4) Hearing loss: Code(s): H91.90 - Unspecified hearing loss, unspecified ear Category: Medical Qualifiers: Hearing loss type: unspecified Laterality: bilateral Qualified Code(s): H91.93 - Unspecified hearing loss, bilateral Plan: Advised Pt to make an appointment with PCP to discuss this condition.
== END 2024-05-30 13:39 | disposition home or self-care (01) ==
PROVIDERS: PCP Internal Medicine; Visit Provider Nurse Practitioner Family
DX: I48.19 Other persistent atrial fibrillation (principal); I50.9 Heart failure, unspecified; H91.93 Unspecified hearing loss, bilateral

== ENCOUNTER → 2024-05-30 13:12 | Outpatient (BNVA) | payer OTHER, SELFPAY | PROVIDERS: PCP Internal Medicine; Visit Provider Nurse Practitioner Family | DX: I48.91 Unspecified atrial fibrillation (principal); I50.9 Heart failure, unspecified; H91.93 Unspecified hearing loss, bilateral | CPT/HCPCS: 96127; 99212 ==

== ENCOUNTER → 2024-06-11 13:05 | Outpatient (REF) | payer OTHER, SELFPAY ==
--- NOTE | 2024-06-11 13:21 | HM_ITS ---
* Total monitoring time 3 days. * Underlying rhythm is atrial fibrillation. * Average ventricular rate 81/Min. About 5% of the time, rate > 100/Min. * Rare PVCs. One run of 8 beats. * No significant pauses or high-grade AV blocks. * No patient markers or diary events. MTDD
== END ==
LOC: HO.CARD 13:05
PROVIDERS: PCP Internal Medicine; Visit Provider Internal Medicine
DX: I48.19 Other persistent atrial fibrillation (principal)
CPT/HCPCS: 93242

== ENCOUNTER → 2024-06-11 13:21 | Outpatient (BNV) | payer OTHER, SELFPAY | PROVIDERS: PCP Internal Medicine; Visit Provider Internal Medicine | DX: I48.91 Unspecified atrial fibrillation (principal); I49.3 Ventricular premature depolarization | CPT/HCPCS: 93244 ==

== ENCOUNTER 2024-06-17 14:34 | Outpatient (AMB) | payer OTHER, SELFPAY ==
--- NOTE | 2024-06-17 14:37 | A.OFFVIS_ITS ---
Vital Signs 06/17/24 14:38 Height 5 ft 2 in Weight 203 lb 11.314 oz BMI 37.3 BP 90/62 Blood Pressure Location Lt brachial Position Sitting Pulse 80 Pulse Source Monitor Intake Visit Reasons: 4 mos f/u/[facility] dc f/u District Engineer Required: Yes District Engineer Language: Indonesian Fish Receiver: Fish Receiver Present Allergies No Known Allergies [No Known Allergies*] Allergy (Verified 06/17/24 14:44) Medication List - Last Reconciled 06/17/24 by REJI Adamson amiodarone 200 mg PO DAILY apixaban (Eliquis) 5 mg PO BID aspirin 81 mg PO DAILY atorvastatin 80 mg PO DAILY blood sugar diagnostic (Soft Tissue RegenerationTouch Ultra Test strips) Use 1 test strip once a day blood-glucose meter (Zazuba Ultra2 Meter) As directed empagliflozin (Jardiance) 10 mg PO DAILY furosemide 40 mg PO BID ibuprofen 800 mg PO TID lancets (FreeStyle Lancets) Use 1 lancet once a day lancets (Soft Tissue RegenerationTouch UltraSoft 2 Lancet) Use 1 lancet once a day metoprolol succinate ER 25 mg PO DAILY sacubitril-valsartan 49-51 mg (Entresto) 1 tab See Protocol PO BID sertraline 50 mg PO DAILY spironolactone 25 mg PO DAILY tamsulosin (Flomax) 0.4 mg PO BEDTIME trazodone 200 mg PO BEDTIME HPI HPI 4 mos f/u/[facility] dc f/u: Details: Royal is a 63-year-old male with past medical history of hypertension, hyperlipidemia, diabetes, obesity, nonischemic cardiomyopathy, alcohol use who as a newer finding of atrial fibrillation and has undergone 2 cardioversions so far with recurrent AF, on amiodarone who presents for follow-up. His last cardioversion was on 05/27/2024 during hospital admission for heart failure. Today he reports he is not feeling well. He describes shortness of breath with physical activity. He is mostly sedentary because of this. He denies PND, orthopnea or edema. No chest discomfort at rest or with activity. No palpitations, lightheadedness, presyncope, syncope, falls. He reports compliance with his meds. He denies recent alcohol use. Certified interpreter used. present. [facility] Medical History (Updated 06/17/24 @ 17:20 by Keira Sanderson NP-C) Persistent atrial fibrillation Congestive heart failure Atrial flutter Atrial fibrillation with rapid ventricular response Atrial fibrillation Alcohol use Hyperlipidemia LDL goal <70 Diabetes mellitus Chronic sore throat Colon perforation Foreign body in sigmoid colon Onychomycosis 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 pylori) GERD (gastroesophageal reflux disease) Breast pain Dyslipidemia Essential hypertension Obese Abdominal mass Insomnia Surgical History H/O abdominal surgery History of colonoscopy Family History Father No problems noted. Mother Kidney failure Social History Household Members: None Housing: Apartment Do you presently have visiting nurse or other home services: Yes (prep room supervisor services just set up; currently looking for a prep room supervisor) Alcohol intake: former Patient Tobacco Use Status: Former Tobacco user Tobacco use type: Cigarette e-Cigarette/Vaping Use: Never Used Second Hand Smoke Exposure: No service: No Current occupational status: retired Cognitive needs: No Hearing needs: No Vision needs: No Review of Systems Const All systems reviewed & are unremarkable except as noted in HPI and below ENT Denies dizziness Card Denies chest pain, Denies chest pain at rest, Denies chest pain with activity, Denies rapid heart rate, Denies pedal edema, Denies edema, Denies leg edema, De nies lightheadedness, Denies palpitations, Reports dyspnea, Reports dyspnea on exertion and Denies orthopnea Resp Denies cough, Reports dyspnea and Reports dyspnea on exertion GI Denies hematochezia and Denies change in stool character Musc Denies abnormal gait, Denies limited range of motion, Denies muscle cramps, Denies muscle weakness, Denies numbness, Denies radiating pain into limb, Denies stiffness and Denies tingling Neuro Denies abnormal gait, Denies dizziness, Denies numbness and Denies tingling Endo Denies palpitations Physical Exam Vital Signs: Last Vital Signs Pulse 80 06/17/24 14:38 BP 90/62 06/17/24 14:38 BMI result Body Mass Index 37.3 Const General: cooperative, healthy appearing, comfortable and no acute distress Orientation/consciousness: patient oriented x3 Neck Neck: Yes normal visual inspection Resp Effort & Inspection: normal respiratory effort Auscultation: clear to auscultation bilaterally, no rales, no rhonchi and no wheezes Cardio Jugular venous distension: no JVD Rate: regular rate Heart sounds: S1 normal heart sound present, S2 normal heart sound present, no gallops, no murmurs and no rubs Peripheral pulses: Peripheral pulses 2+ throughout Neuro General: patient oriented x3 Extrem General: Yes normal to inspection, No no pedal edema and No calf tenderness Psych Appearance: grossly normal Mental Status: mental status grossly normal Speech and movement: Normal speech and movement present Office Procedures EKG Details: Today, read by me, atrial fibrillation, left bundle branch block, rate 80, QTC 486 milliseconds [id number], Complete Quality Reporting (2019) Adult ([facility] 138/[birth year]) Smoking risk assessment performed?: Yes Patient Tobacco Use Status: Former Tobacco user Assessment & Plan Assessment & Plan (1) Persistent atrial fibrillation: Code(s): I48.19 - Other persistent atrial fibrillation Category: Medical Plan: Newer finding of atrial fibrillation. He was initially treated with rate control and did undergo a cardioversion 03/23/2024. He was then started on amiodarone load with maintenance dose of 200 mg daily. When he was seen in office follow-up he was noted to have recurrent atrial fibrillation and plan was for a repeat outpatient cardioversion. He was admitted to [facility] last month with decompensated heart failure and difficult to control AFib rates. He underwent a cardioversion while inpatient 05/27/2024 with successful conversion to sinus rhythm. It appears he remained in sinus rhythm at time of discharge. Today he presents for follow-up and EKG shows atrial fibrillation, left bundle branch block, rate 80. He is reporting shortness of breath with activity. He does not appear to have decompensated heart failure at this time. He reports compliance with his medication including anticoagulation. Case discussed with Dr. Trevino. Will have him increase amiodarone up to 200 mg b.i.d.. Will repeat cardioversion in 1 week. Will refer back to electrophysiology for his ICD and to evaluate for AFib ablation. If he remains in sinus rhythm will plan for a limited echo prior to his next visit to re-evaluate EF. Patient is agreeable to this plan. 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 Cardiac catheterization back in 2019 showed no significant coronary artery disease. EF has remained down since that time. Echocardiogram done 09/26/2022 showed EF 20- 25%. Echo prior to that 09/14/2021 also showed EF 20-25%. He has been on guideline directed medical therapy according to our records. He has had issues with med noncompliance. Echocardiogram done 12/20/2023 showed EF 30-35%, wall motion abnormality consistent with ischemic cardiomyopathy. Based on prior cardiac catheterization he has no significant CAD. He reports shortness of breath with activity. On exam he does not appear fluid overloaded but he has at risk with his recurrent AFib.. NYHA class 2. His meds are optimized. He has already been referred to electrophysiology for a defibrillator and saw Dr. Duong on 1 occasion. He has no follow-up or ICD insertion plan as of yet. Will re-refer. Continue Jardiance, metoprolol XL, Entresto for neurohormonal modulation. Continue Lasix. Continue aspirin and statin. Need for strict compliance reviewed with him. (3) Chronic systolic heart failure: Code(s): I50.22 - Chronic systolic (congestive) heart failure Category: Medical Plan: As above (4) Essential hypertension: Comment: Well controlled Code(s): I10 - Essential (primary) hypertension Category: Medical Plan: Blood pressure on the low side however he is tolerating without symptoms. (5) Alcohol use: Code(s): Z78.9 - Other specified health status Category: Social Hx Plan: He reports that he has not had any recent alcohol intake. Plan Time spent on chart review, documentation, interview and assessment Orders: Orders Cardioversion 1 Week I48.19 - Other persistent atrial fibrillation CA Echo Limited 07/29/24 I42.8 - Other cardiomyopathies Referrals Cardiac Electrophysiology Referral I42.8 - Other cardiomyopathies, I48.19 - Other persistent atrial fibrillation Medications: Changed From amiodarone 200 mg PO DAILY 90 tabs 0RF To amiodarone 200 mg PO BID 60 tabs 3RF 30 days Coding Level of Care Code Est Pt Level 4 (34513) Complex EM visit Add On G2211 Diagnoses Persistent atrial fibrillation I48.19 NICM (nonischemic cardiomyopathy) I42.8 Chronic systolic heart failure I50.22 Essential hypertension I10 Alcohol use Z78.9 CPT Codes EKG - CPT: [id number], Complete ([id number]) Time Spent (min) 36
[2024-06-17 14:38] VITALS: BP 90/62; PULSE 80; BMI 37.3
== END 2024-06-17 16:07 | disposition home or self-care (01) ==
LOC: HO.HCS 14:34
PROVIDERS: PCP Internal Medicine; Visit Provider Nurse Practitioner Family
DX: I48.91 Unspecified atrial fibrillation (principal)
CPT/HCPCS: 93010; 99214; G2211

== ENCOUNTER → 2024-06-17 14:34 | Outpatient (BNVA) | payer OTHER, SELFPAY | PROVIDERS: PCP Internal Medicine; Visit Provider Nurse Practitioner Family | DX: I11.0 Hypertensive heart disease with heart failure (principal); I50.22 Chronic systolic (congestive) heart failure; I48.91 Unspecified atrial fibrillation; I42.8 Other cardiomyopathies; I48.19 Other persistent atrial fibrillation; E78.5 Hyperlipidemia, unspecified; E11.9 Type 2 diabetes mellitus without complications; Z78.9 Other specified health status; Z87.891 Personal history of nicotine dependence | CPT/HCPCS: 93005; 99212 ==

== ENCOUNTER 2024-06-21 14:53 | Emergency (ER) | payer OTHER, SELFPAY ==
--- NOTE | ~2024-06-21 | XR_ITS ---
EXAMINATION: XR CHEST CLINICAL INFORMATION: Shortness of breath. Chest pain. COMPARISON: X-ray dated May 24, 2024. TECHNIQUE: 2 views of the chest were obtained. FINDINGS: Prominence of the interstitial markings and indistinct margins in the perihilar regions. Haziness in the right lower hemithorax. No pneumothorax. Heart silhouette is enlarged. Multilevel thoracic spondylosis. XR/XR chest 2V IMPRESSION: Pulmonary edema, cardiomegaly versus pericardial effusion and right-sided pleural effusion, small volume. Electronically signed by: Lucius Carpio MD 06/21/2024 03:54 PM EST
--- NOTE | ~2024-06-21 | CT_ITS ---
EXAMINATION: CT CHEST PE STUDY CLINICAL INFORMATION: Cough. Hemoptysis. COMPARISON: Chest x-ray dated 06/21/2024. CT pulmonary angiogram dated 05/19/2019. TECHNIQUE: Prior to contrast administration, localization images were obtained. After the administration of 65 mL of intravenous Omnipaque 350, multidetector CT volume acquisition of the chest was performed. 3-D postprocessing was performed with multiplanar reconstructions and MIP images obtained at the acquisition workstation under concurrent physician supervision. This CT examination was performed using dose optimization techniques as appropriate, variously including the following: *Automated exposure control *Adjustment of mA and/or kV according to patient size (this includes techniques or standardized protocols for targeted exams where dose is matched to indication/reason for exam; i.e. extremities or head) *Use of iterative reconstruction technique DLP: 373 mGy-cm. FINDINGS: Pulmonary arteries: The bolus timing on this study was acceptable for visualization of the pulmonary arterial tree. There are no central or segmental pulmonary emboli. Lungs: There are diffuse fluffy airspace opacities seen in both lower lobes and to a lesser extent in the right middle lobe and inferior bilateral upper lobes. No significant pleural effusion is noted. No peripheral Dmitriy B lines are seen. The central pulmonary veins are not enlarged. There is mild prominence of the central bilateral pulmonary arteries. The central airways remain patent. There is a 3 mm peripheral left upper lobe solid noncalcified nodule (series 7, image 133). Lungs otherwise poorly assessed for subtle lung nodules given the extensive underlying lung parenchymal opacities. No pneumothorax. The central airways are patent. Aorta and heart: The heart is mildly enlarged with primarily left heart chamber enlargement seen. Mild aortic and coronary artery calcifications noted.. The aorta is normal in caliber. There is no pericardial effusion or periaortic collection, No ventricular septal bowing seen to suggest right heart strain. Lymphatic structures: There is no lymphadenopathy. Upper abdomen: Limited evaluation of the upper abdominal viscera demonstrates no focal abnormality. No reflux of contrast into the hepatic veins to suggest elevated right heart pressures. Bones: Exaggeration of the normal thoracic kyphosis with prominent anterior right lateral marginal spur formation seen throughout the mid and lower thoracic spine. Partial ossification of the posterior spinous processes in the mid and lower thoracic spine seen. No suspicious focal findings. CT/CT angio chest PE protocol IMPRESSION: 1. No evidence of pulmonary embolism. 2. Diffuse fluffy airspace opacities are seen in the lungs bilaterally with the mid and lower lung zone predominance. Findings likely due to an infectious or inflammatory etiology. Even though there is enlargement of the left heart chambers, the appearance is not typical for pulmonary edema. There are no curly B lines and no obvious thickening of the interlobular septae and no significant pleural effusion. Close clinical correlation is requested. 3. Incidental 3 mm solid noncalcified nodule in the left upper lobe. According to the UPDATED 2017 Fleischner Society recommendations, the advised follow-up imaging for nodules <6mm in the upper lobes is not necessarily required in low-risk patients. In high-risk patients with a nodule in the upper lobe and/or demonstrating suspicious morphology, an optional CT follow-up at 12 months may be obtained. If stable at 12 months, no further follow-up is recommended. Electronically signed by: Angelica Carrion MD 06/21/2024 07:11 PM [facility]
[2024-06-21 15:00] VITALS: BP 98/45; PULSE 56; RESP 18; TEMP 36.5; O2SAT 93; BMI 37.9
--- NOTE | 2024-06-21 15:03 | ECG_ITS ---
Test Reason : chest pain Blood Pressure : / mmHG Vent. Rate : 067 BPM Atrial Rate : 067 BPM P-R Int : 176 ms QRS Dur : 152 ms QT Int : 444 ms P-R-T Axes : 055 -47 074 degrees QTc Int : 469 ms Normal sinus rhythm Left bundle branch block Abnormal ECG When compared with ECG of 27-MAY-2024 11:45, No significant change was found Referred By: Generic ED Physician Electronically Signed By:SETH GAGE MD
[2024-06-21 15:29] LABS: MANUAL DIFF FLAG NO
[2024-06-21 15:32] LABS: Basophils Absolute Auto 0.1 X10*3/uL (0.0-0.2); Basophils Percent Auto 0.8 % (0-2); Eosinophils Percent Auto 0.4 % (0-4); Hematocrit 42.4 % (42.0-52.0); Hemoglobin 14.4 g/dl (14.0-18.0); Imm Gran Abs Auto 0.01 X10*3/uL (0.00-0.03); Imm Gran Pct Auto 0.1 % (0.0-0.4); Lymphocytes Absolute Auto 0.9 X10*3/uL (1.2-4.9); Lymphocytes Percent Auto 11.9 % (20-40); Mean Corpuscular Hemoglobin 29.2 pg (27.0-33.0); Monocytes Absolute Auto 0.4 X10*3/uL (0.1-1.2); Monocytes Percent Auto 5.1 % (2-11); Neutrophils Absolute Auto 6.2 x10*3/uL (2.0-8.3); Neutrophils Percent Auto 81.7 % (45-73); Platelet Count 152 X10*3/uL (160-400); Red Blood Count 4.93 X10*6/uL (4.60-5.80); Red Cell Distribution Width 14.2 % (11.0-16.0); White Blood Count 7.6 X10*3/uL (4.8-10.8)
[2024-06-21 15:39] LABS: INTERNATIONAL NORM RATIO 1.5 (0.9-1.1); Prothrombin Time 17.8 SEC (10.9-12.4)
[2024-06-21 15:46] LABS: Alanine Aminotransferase 25 U/L (0-40); Albumin Level 4.2 g/dL (3.5-5.0); Alkaline Phosphatase 49 U/L (39-117); Anion Gap 15 (12-20); Aspartate Amino Transferase 21 U/L (5-37); Bilirubin Total 1.3 mg/dL (0.0-1.0); Blood Urea Nitrogen 20 mg/dL (9-16); Carbon Dioxide 23 mmol/L (22-29); Chloride 106 mmol/L (96-108); Creatinine Clr Calc Pharmacy 50.8; Estimated Glomerular Filt Rate 49; Glucose Random 142 mg/dL (60-115); Potassium 3.7 mmol/L (3.3-5.1); Sodium 140 mmol/L (135-145); Total Protein 6.8 g/dL (6.5-8.0)
[2024-06-21 15:54] LABS: Troponin-I High Sensitivity 19.4 ng/L (<3.5-35.0)
[2024-06-21 16:06] LABS: Influenza A PCR NEGATIVE (Negative); Influenza B PCR NEGATIVE (Negative); Resp Syncy Virus RNA Qual PCR NEGATIVE (Negative); SARS COV2 PCR INHOUSE NEGATIVE (Negative)
[2024-06-21 16:59] LABS: OBS Int Ctl Valid YES; OBS1 NEGATIVE (NEGATIVE)
[2024-06-21] MEDS: iohexoL 350 MG/ML 100 ML INFUS..BTL 65 ML IV (17:17)
[2024-06-21 17:22] LABS: B Type Natriuretic Peptide 603 pg/mL (<100)
--- NOTE | 2024-06-21 17:28 | ED_ITS ---
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 He reports shortness of breath, cough. He reports that his cough is productive of bloody sputum He denies any chest pain or any pain whatsoever currently Patient states that 3 days ago he had some bright red blood in his stool but denies any rectal bleeding currently He never had any rectal pain He reports a recent admission to this hospital for CHF Denies any fevers, chills, sick contacts He reports that he was started on Eliquis a few months ago He had an echocardiogram in March which shows an EF of 10-15% Related Data Home Medications ?Medication ?Instructions ?Recorded ?Confirmed trazodone 100 mg tablet 200 mg PO BEDTIME 03/19/24 06/17/24 ibuprofen 800 mg tablet 800 mg PO TID 04/17/24 06/17/24 metoprolol succinate 50 mg 25 mg PO DAILY 04/17/24 06/17/24 tablet,extended release 24 hr spironolactone 25 mg tablet 25 mg PO DAILY 04/17/24 06/17/24 aspirin 81 mg tablet,delayed 81 mg PO DAILY 05/24/24 06/17/24 release sertraline 50 mg tablet 50 mg PO DAILY 06/17/24 06/17/24 Previous Rx's ?Medication ?Instructions ?Recorded lancets 28 gauge (FreeStyle #100 ea 01/17/23 Lancets) blood sugar diagnostic (OneTouch #100 ea 05/09/23 Ultra Test strips) blood-glucose meter (OneTouch #1 ea 05/09/23 Ultra2 Meter) lancets 30 gauge (OneTouch #100 ea 05/09/23 UltraSoft 2 Lancet) atorvastatin 80 mg tablet 80 mg PO DAILY #90 tabs 09/11/23 furosemide 40 mg tablet 40 mg PO BID #90 tabs 04/17/24 apixaban 5 mg tablet (Eliquis) 5 mg PO BID #180 tabs 05/01/24 tamsulosin 0.4 mg capsule (Flomax) 0.4 mg PO BEDTIME #30 caps 05/06/24 empagliflozin 10 mg tablet 10 mg PO DAILY #30 tabs 05/28/24 (Jardiance) sacubitril 49 mg-valsartan 51 mg 1 tab PO BID #60 tabs 05/28/24 tablet (Entresto) amiodarone 200 mg tablet 200 mg PO BID 30 days #60 tabs 06/17/24 azithromycin 250 mg tablet See Rx Instructions PO .COMPLEX #6 06/21/24 tabs cefuroxime axetil 500 mg tablet 500 mg PO Q12H #14 tabs 06/21/24 Allergies Allergy/AdvReac Type Severity Reaction Status Date / Time No Known Allergies Allergy Verified 06/21/24 15:02 [No Known Allergies*] Review of Systems 2 Constitutional: Constitutional: Denies body ache(s), Denies chills, Denies fever(s) and Denies headache(s) Eyes: Eyes: Denies blurry vision ENT: Denies vertigo, Denies headache(s), Denies odynophagia and Denies sore throat Cardiovascular: Cardiovascular: Denies chest pain, Reports dyspnea and Reports dyspnea on exertion Respiratory: Respiratory: Reports change in phlegm color, Reports chest congestion, Reports cough, Reports hemoptysis, Reports pain with cough, Reports dyspnea, Reports dyspnea on exertion and Denies wheezing Gastrointestinal: Gastrointestinal: Denies abdominal pain, Reports hematochezia, Denies GI cramping, Denies diarrhea, Denies loose stools, Denies nausea, Denies odynophagia and Denies vomiting Musculoskeletal: Musculoskeletal: Denies back pain Integumentary/Breasts: Skin/Breast: Denies rash Neurologic: Denies confusion, Denies vertigo and Denies headache(s) Psychiatric: Psychiatric: Denies anxiety, Denies confusion and Denies depression Allergic/Immunologic: Allergic/Immunologic: Denies wheezing PMFSH Past Medical History Medical History (Updated 06/21/24 @ 19:[address]) Persistent atrial fibrillation Congestive heart failure Atrial flutter Atrial fibrillation with rapid ventricular response Atrial fibrillation Alcohol use Hyperlipidemia LDL goal <70 Diabetes mellitus Chronic sore throat Colon perforation Foreign body in sigmoid colon Onychomycosis 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 pylori) GERD (gastroesophageal reflux disease) Breast pain Dyslipidemia Essential hypertension Obese Abdominal mass Insomnia Surgical History H/O abdominal surgery History of colonoscopy Family History Family History Father No problems noted. Mother Kidney failure Social History Social History Household Members: None Housing: Apartment Do you presently have visiting nurse or other home services: Yes (director compensation services just set up; currently looking for a director compensation) Alcohol intake: former Patient Tobacco Use Status: Former Tobacco user Tobacco use type: Cigarette Smoked in Last 30 Days: No e-Cigarette/Vaping Use: Never Used Second Hand Smoke Exposure: No Use of substances other than those prescribed or required for medical reasons: No Advance Directives: No Advance Directives Information Provided: Yes Do you have a plan to hurt others: No Plan service: No Current occupational status: retired Cognitive needs: No Hearing needs: No Vision needs: No Physical Exam ED Vital Signs: Vital Signs - 24 hr 06/21/24 15:00 Temperature 97.7 F Pulse Rate 56 Respiratory Rate 18 Blood Pressure 98/45 L Pulse Oximetry 93 Oxygen Delivery Method Room Air BMI result Body Mass Index 37.9 Const General: No confusion Nutritional Appearance: well nourished Orientation/consciousness: No confusion HENMT Head: Yes normocephalic and Yes atraumatic Throat: Yes posterior oropharynx normal Eyes Eyelids: Yes eyelids normal Conjunctivae: conjunctivae normal Sclerae: sclerae normal Corneas: corneas normal EOM: EOMs intact bilaterally Neck Neck: Yes full ROM Resp Effort & Inspection: normal respiratory effort, able to speak in complete sentences, no audible wheezes and not labored Auscultation: clear to auscultation bilaterally GI Inspection: No distended Palpation (GI): Soft to palpation, not firm, nontender, no guarding and not rigid Rectal Exam - Male: Yes visual inspection normal, Yes heme negative stool and No External hemorrhoid(s) present Skin General skin exam: elasticity normal Neuro General: No confusion Cranial nerves: Yes CN's II-XII intact bilaterally and Yes Bilaterally intact EOM present Cognition (Neuro): normal cognition Extrem Other: Moving all extremities well without any obvious deformities Course Reevaluation(s) Reevaluation #1: Patient's CT scan shows fluffy opacities consistent with infectious or inflammatory etiology. This is most likely pneumonia and will be treated as such. The patient has no known allergies, we will just azithromycin and cefuroxime to treat community-acquired pneumonia. There are no significant pleural effusions or pulmonary edema seen on the CT scan. Patient will also be referred to GI for his reported rectal bleeding a few days ago. Time: 19:27 Medications Administered Discontinued Medications Generic Name Dose Route Start Last Admin Trade Name Freq PRN Reason Stop Dose Admin Iohexol 65 ml 06/21/24 17:17 06/21/24 17:17 Iohexol 350 Mg/Ml 100 Ml Infus..Btl IV 06/21/24 17:18 65 ml ONCE ONE Administration Medical Decision Making Medical Decision Making [facility] Narrative: 63-year-old male past medical history as documented above presents for evaluation of multiple complaints. He complains of coughing up blood as well as rectal bleeding. He is guaiac negative on exam. He has not coughed up any blood in the emergency department. His hemoglobin and hematocrit are normal and consistent with his baseline. His chemistries significant for a BUN of 20 and a creatinine of 1.44, both slightly above baseline. His troponin is 19.4 with a normal limits, and denies any chest pain. His BNP is elevated to 603. The patient is mildly hypotensive at 98/45, his baseline appears to be around here or slightly above. He is not hypoxic at rest Differential Diagnosis Differential Diagnoses: The differential diagnosis associated with the presentation includes Hemoptysis Pneumonia Coagulopathy Lung mass PE less likely as the patient is on Eliquis Rectal bleeding Admission/Observation Consideration of admission/observation: Escalation of care including admission/observation considered Lab Data [facility] Lab Attestation statement: I reviewed the patient's lab results. See above 06/21/24 15:19 06/21/24 15:19 Labs: Lab Results 06/21/24 06/21/24 06/21/24 Range/Units 15:13 15:19 16:54 WBC 7.6 (4.8-10.8) X10*3/uL RBC 4.93 (4.60-5.80) X10*6/uL Hgb 14.4 (14.0-18.0) g/dl Hct 42.4 (42.0-52.0) % MCV 86.0 (80.0-98.0) fL MCH 29.2 (27.0-33.0) pg MCHC 34.0 (31.0-36.0) g/dl RDW 14.2 (11.0-16.0) % Plt Count 152 L D (160-400) X10*3/uL MPV 12.0 (9.4-12.4) fL Immature Gran % (Auto) 0.1 (0.0-0.4) % Neut % (Auto) 81.7 H (45-73) % Lymph % (Auto) 11.9 L (20-40) % [place] % (Auto) 5.1 (2-11) % Eos % (Auto) 0.4 (0-4) % Baso % (Auto) 0.8 (0-2) % Lymph # (Auto) 0.9 L (1.2-4.9) X10*3/uL [place] # (Auto) 0.4 (0.1-1.2) X10*3/uL Eos # (Auto) 0.0 (0.0-0.4) X10*3/uL Baso # (Auto) 0.1 (0.0-0.2) X10*3/uL Abs Immat Gran (auto) 0.01 (0.00-0.03) X10*3/uL Absolute Neuts (auto) 6.2 (2.0-8.3) x10*3/uL Absolute Nucleated RBC 0.000 (0.0-0.012) X10*3/uL Nucleated RBC % (auto) 0.0 (0.0-0.2) /100WBC PT 17.8 H (10.9-12.4) SEC INR 1.5 H (0.9-1.1) Sodium 140 (135-145) mmol/L Potassium 3.7 (3.3-5.1) mmol/L Chloride 106 (96-108) mmol/L Carbon Dioxide 23 (22-29) mmol/L Anion Gap 15 (12-20) BUN 20 H (9-16) mg/dL Creatinine 1.44 H (0.5-1.4) mg/dL Estim Creat Clear Calc 50.8 Estimated GFR 49 Random Glucose 142 H (60-115) mg/dL Calcium 9.0 (8.4-10.2) mg/dL Total Bilirubin 1.3 H (0.0-1.0) mg/dL AST 21 (5-37) U/L ALT 25 (0-40) U/L Alkaline Phosphatase 49 (39-117) U/L Troponin I High Sens 19.4 (<3.5-35.0) ng/L B-Natriuretic Peptide 603 H (<100) pg/mL Total Protein 6.8 (6.5-8.0) g/dL Albumin 4.2 (3.5-5.0) g/dL Stool Occult Blood NEGATIVE (NEGATIVE) Influenza Type A (PCR) NEGATIVE (Negative) Influenza Type B (PCR) NEGATIVE (Negative) RSV RNA Qual (PCR) NEGATIVE (Negative) SARS-CoV-2 RNA (RT-PCR) NEGATIVE (Negative) Independent Interpretation I performed an independent interpretation of an: EKG (Normal sinus rhythm with a rate of 67 beats minute. No significant change when compared to previous from May 27, 2024) Radiology Impression Discussion of test interpretation with radiology: I have reviewed the radiologist's reading. Radiologist Impression: FINDINGS: Prominence of the interstitial markings and indistinct margins in the perihilar regions. Haziness in the right lower hemithorax. No pneumothorax. Heart silhouette is enlarged. Multilevel thoracic spondylosis. XR/XR chest 2V IMPRESSION: Pulmonary edema, cardiomegaly versus pericardial effusion and right-sided pleural effusion, small volume. Electronically signed by: Lucius Carpio MD 06/21/2024 03:54 PM [facility] [place] Discharge Clinical Impression: Community acquired pneumonia, Bright red blood per rectum Patient Disposition: Home, Self-Care Instructions: Rectal Bleeding (ED), Community Acquired Pneumonia (ED) Additional Instructions: Your blood counts today are normal. Your CT scan shows pneumonia. Take both antibiotics as prescribed I recommend that you follow-up with GI for your recent rectal bleeding Called Dr. Fan at the number provided Prescriptions: New azithromycin 250 mg tablet See Rx Instructions .ROUTE .COMPLEX Qty: 6 0RF Rx Instructions: For 250 mg dose pack: take 500 mg today (day 1), then 250 mg for 4 days (days 2-5) cefuroxime axetil 500 mg tablet 500 mg PO Q12H Qty: 14 0RF No Action atorvastatin 80 mg tablet 80 mg PO DAILY Qty: 90 3RF Eliquis 5 mg tablet 5 mg PO BID Qty: 180 0RF trazodone 100 mg tablet 200 mg PO BEDTIME metoprolol succinate 50 mg tablet extended release 24 hr 25 mg PO DAILY aspirin 81 mg tablet,delayed release (DR/EC) 81 mg PO DAILY Jardiance 10 mg Tablet 10 mg PO DAILY Qty: 30 0RF Entresto 49-51 mg Tablet 1 tab PO BID Qty: 60 0RF Protocol: Hold for SBP< HOLD for SBP < : 90 (DME) blood-glucose meter [OneTouch Ultra2 Meter] Misc See Rx Instructions .Route Qty: 1 0RF Rx Instructions: As directed (DME) OneTouch Ultra Test Strip See Rx Instructions .Route Qty: 100 2RF Rx Instructions: Use 1 test strip once a day (DME) lancets [OneTouch UltraSoft 2 Lancet] 30 gauge misc See Rx Instructions .Route Qty: 100 2RF Rx Instructions: Use 1 lancet once a day (DME) lancets [FreeStyle Lancets] 28 gauge misc See Rx Instructions .Route Qty: 100 3RF Rx Instructions: Use 1 lancet once a day tamsulosin [Flomax] 0.4 mg capsule 0.4 mg PO BEDTIME Qty: 30 2RF ibuprofen 800 mg tablet 800 mg PO TID spironolactone 25 mg tablet 25 mg PO DAILY furosemide 40 mg tablet 40 mg PO BID Qty: 90 3RF sertraline 50 mg tablet 50 mg PO DAILY amiodarone 200 mg tablet 200 mg PO BID 30 Days Qty: 60 3RF Referrals: Kristie Fan MD [Physician] - (bright red blood per rectum) Print Language: Turkmen
[2024-06-21 19:47] VITALS: BP 98/45; PULSE 56; RESP 18; TEMP 36.5; O2SAT 93
== END 2024-06-21 19:48 | disposition home or self-care (01) ==
PROVIDERS: Physician Assistant; Emergency Provider Emergency Medicine; PCP Internal Medicine
DX: J18.8 Other pneumonia, unspecified organism (principal); K62.5 Hemorrhage of anus and rectum; Z03.818 Encounter for observation for suspected exposure to other biological agents ruled out; R06.02 Shortness of breath; R05.9 Cough, unspecified; E11.9 Type 2 diabetes mellitus without complications; I11.0 Hypertensive heart disease with heart failure; I50.9 Heart failure, unspecified; E78.5 Hyperlipidemia, unspecified; I48.91 Unspecified atrial fibrillation; Z79.01 Long term (current) use of anticoagulants; Z79.02 Long term (current) use of antithrombotics/antiplatelets; Z79.899 Other long term (current) drug therapy; Z79.82 Long term (current) use of aspirin
CPT/HCPCS: 0241U; 71046; 71275; 80053; 82272; 83880; 84484; 85025; 85610; 93005; 99284; Q9967

== ENCOUNTER → 2024-06-21 15:03 | Outpatient (BNV) | payer OTHER, SELFPAY | PROVIDERS: Emergency Provider Emergency Medicine; PCP Internal Medicine; Visit Provider Internal Medicine Cardiovascular Disease | DX: R94.31 Abnormal electrocardiogram [ECG] [EKG] (principal) | CPT/HCPCS: 93010 ==

== ENCOUNTER → 2024-06-21 15:03 | Outpatient (BNV) | payer OTHER, SELFPAY | PROVIDERS: PCP Internal Medicine; Visit Provider Radiology Diagnostic Radiology | DX: J81.0 Acute pulmonary edema (principal); J91.8 Pleural effusion in other conditions classified elsewhere | CPT/HCPCS: 71046 ==

== ENCOUNTER 2024-07-03 20:50 | Inpatient (IN) | payer OTHER, SELFPAY ==
--- NOTE | 2024-07-03 | ECG_ITS ---
Test Reason : weakness Blood Pressure : / mmHG Vent. Rate : 092 BPM Atrial Rate : 000 BPM P-R Int : 000 ms QRS Dur : 162 ms QT Int : 432 ms P-R-T Axes : 000 -55 081 degrees QTc Int : 534 ms Atrial fibrillation Left bundle branch block Abnormal ECG When compared with ECG of 21-JUN-2024 15:00, Atrial fibrillation has replaced Sinus rhythm QT has lengthened Referred By: Generic ED Physician Electronically Signed By:SETH GAGE MD
--- NOTE | ~2024-07-03 | XR_ITS ---
EXAMINATION: XR CHEST 2 VIEWS CLINICAL INFORMATION: SOB/cough. COMPARISON: XR Chest 06/21/2024. CT angiography chest 06/21/2024 TECHNIQUE: 2 views of the chest were obtained. FINDINGS: Cardiac silhouette is enlarged similar findings present 06/21/2024. Minimal blunting of the right costophrenic sulcus. No pneumothoraces. Diffuse pulmonary vascular indistinctness and bibasilar hazy airspace opacities in a grossly symmetric configuration. No suspicious skeletal abnormalities. XR/XR chest 2V IMPRESSION: *Findings suspicious for mild-moderate pulmonary edema. Findings could also represent pneumonia and a fortuitously bilaterally symmetric configuration. *Possible trace right pleural effusion. *Cardiomegaly. Electronically signed by: Damian Colunga MD 07/04/2024 12:10 AM [facility]
--- NOTE | ~2024-07-03 | CT_ITS ---
EXAMINATION: CT CHEST WITH CONTRAST CLINICAL INFORMATION: Infection. Short of breath. Cough. COMPARISON: None available. TECHNIQUE: Multidetector volumetric CT imaging of the chest was obtained after the administration of 65 mL of Omnipaque 350 intravenous contrast without immediate adverse reactions. Axial MIP volume rendering provided. Sagittal and coronal reformatted images were obtained. This CT examination was performed using dose optimization techniques as appropriate, variously including the following: *Automated exposure control *Adjustment of mA and/or kV according to patient size (this includes techniques or standardized protocols for targeted exams where dose is matched to indication/reason for exam; i.e. extremities or head) *Use of iterative reconstruction technique DLP: 342 mGy-cm FINDINGS: Pulmonary arterial system: High density venous contrast intraluminal opacification of the pulmonary arterial system is noted. Within the visualized pulmonary arterial segments, no intraluminal filling defects are noted to suggest the presence of pulmonary emboli. The main and central pulmonary arteries are normal in appearance. Thoracic aorta: Normal caliber. Mild scattered aortic calcific atherosclerosis. Lungs and pleura: Smooth intralobular septal thickening is present diffusely in the lungs. A small number of scattered alveolar opacities and mild focal areas of pulmonary consolidation are noted. The areas of consolidation are most pronounced in the right upper pulmonary lobe. Findings demonstrate subpleural sparing. Mild central peribronchial wall thickening is present bilaterally. A trace dependent layering right pleural effusion is present (-15 Hounsfield units). No endobronchial lesions noted. A trace left pleural effusion is visualized. No pneumothoraces. Mediastinum: Four-chamber cardiomegaly is present. No pericardial thickening or pericardial fluid collections identified. No mediastinal lymphadenopathy. No coronary artery calcifications identified. Thoracic wall. No axillary lymphadenopathy. No thoracic wall inflammatory changes. Incidentally visualized abdominal structures: The adrenal glands are partially included in the field of view and are normal in appearance. Osseous structures: No suspicious skeletal lesions. Moderate multilevel anterior endplate osteophytosis of the thoracic spine. CT/CT chest w IV con IMPRESSION: 1. CT pulmonary angiogram negative for pulmonary emboli. 2. Findings suspicious for resolving moderate interstitial pulmonary edema. Diffuse intralobular septal thickening is noted in association with scattered alveolar opacities which demonstrate subpleural sparing. Subpleural sparing is typically seen in the setting of resolving pulmonary edema secondary to the dual lymphatic supply of the subpleural pulmonary parenchyma. A small number of scattered foci of consolidation are additionally noted, primarily within the right upper pulmonary lobe. All these findings have the typical appearance of pulmonary edema. However, an atypical/viral infection could have a similar appearance though typically infection is more heterogeneous and asymmetric in distribution. 3. Trace bilateral pleural effusions. 4. Four-chamber cardiomegaly. VTE: Negative Electronically signed by: Damian Colunga MD 07/04/2024 04:16 AM [facility]
[2024-07-03 21:07] VITALS: BP 113/77; PULSE 98; RESP 18; TEMP 36.3; O2SAT 93; BMI 37.1
[2024-07-03 21:37] LABS: MANUAL DIFF FLAG NO
[2024-07-03 21:38] LABS: Basophils Absolute Auto 0.1 X10*3/uL (0.0-0.2); Basophils Percent Auto 0.9 % (0-2); Eosinophils Percent Auto 0.3 % (0-4); Hematocrit 42.6 % (42.0-52.0); Hemoglobin 14.7 g/dl (14.0-18.0); Imm Gran Abs Auto 0.02 X10*3/uL (0.00-0.03); Imm Gran Pct Auto 0.3 % (0.0-0.4); Lymphocytes Absolute Auto 0.9 X10*3/uL (1.2-4.9); Lymphocytes Percent Auto 11.8 % (20-40); Mean Corpuscular HGB Conc 34.5 g/dl (31.0-36.0); Mean Corpuscular Hemoglobin 29.1 pg (27.0-33.0); Mean Corpuscular Volume 84.2 fL (80.0-98.0); Mean Platelet Volume 11.9 fL (9.4-12.4); Monocytes Absolute Auto 0.6 X10*3/uL (0.1-1.2); Neutrophils Absolute Auto 6.4 x10*3/uL (2.0-8.3); Neutrophils Percent Auto 79.7 % (45-73); Platelet Count 204 X10*3/uL (160-400); Red Blood Count 5.06 X10*6/uL (4.60-5.80); Red Cell Distribution Width 14.2 % (11.0-16.0)
[2024-07-03 21:53] LABS: Alanine Aminotransferase 45 U/L (0-40); Alkaline Phosphatase 51 U/L (39-117); Anion Gap 17 (12-20); Aspartate Amino Transferase 49 U/L (5-37); Bilirubin Total 1.1 mg/dL (0.0-1.0); Blood Urea Nitrogen 27 mg/dL (9-16); Calcium 8.9 mg/dL (8.4-10.2); Carbon Dioxide 23 mmol/L (22-29); Chloride 103 mmol/L (96-108); Estimated Glomerular Filt Rate 57; Glucose Random 146 mg/dL (60-115); Potassium 3.4 mmol/L (3.3-5.1); Sodium 140 mmol/L (135-145); Total Protein 6.6 g/dL (6.5-8.0)
[2024-07-03 21:59] LABS: B Type Natriuretic Peptide 1922 pg/mL (<100)
[2024-07-03 22:00] LABS: Troponin-I High Sensitivity 29.3 ng/L (<3.5-35.0)
[2024-07-03 22:15] LABS: Influenza A PCR NEGATIVE (Negative); Influenza B PCR NEGATIVE (Negative); Resp Syncy Virus RNA Qual PCR NEGATIVE (Negative); SARS COV2 PCR INHOUSE NEGATIVE (Negative)
[2024-07-04] VITALS (14 sets, daily range): BP systolic 95–126; BP diastolic 58–91; PULSE 89–103; RESP 16–25; TEMP 36.4–37.2; O2SAT 91–98
--- NOTE | 2024-07-04 00:04 | ED_ITS ---
HPI - General Adult General Chief complaint: General Medical Stated complaint: sob, dizzy Time Seen by Provider: 07/03/24 23:18 Source: patient Limitations: language barrier History of Present Illness ED Provider: Ema griffin PA-C HPI narrative: 63 y/o M with hx of recent outpt tx for CAP 06/21/2024, COPD, atrial fibrillation on Eliquis, obesity, coronary artery disease status post stenting, anxiety, GERD, hypertension, hyperlipidemia, obesity, alcohol use disorder , presents with worsening cough and shortness of breath. Patient states he has been feeling weak, with generalized malaise since yesterday. Patient notes worsening shortness of breath, he is now expelling brown tinged sputum. Denies chest pain, nausea, vomiting or known fevers. Patient states he completed the prescribed medications he was sent home with. Related Data Home Medications ?Medication ?Instructions ?Recorded ?Confirmed trazodone 100 mg tablet 200 mg PO BEDTIME 03/19/24 06/17/24 ibuprofen 800 mg tablet 800 mg PO TID 04/17/24 06/17/24 metoprolol succinate 50 mg 25 mg PO DAILY 04/17/24 06/17/24 tablet,extended release 24 hr spironolactone 25 mg tablet 25 mg PO DAILY 04/17/24 06/17/24 aspirin 81 mg tablet,delayed 81 mg PO DAILY 05/24/24 06/17/24 release sertraline 50 mg tablet 50 mg PO DAILY 06/17/24 06/17/24 Previous Rx's ?Medication ?Instructions ?Recorded lancets 28 gauge (FreeStyle #100 ea 01/17/23 Lancets) blood sugar diagnostic (OneTouch #100 ea 05/09/23 Ultra Test strips) blood-glucose meter (OneTouch #1 ea 05/09/23 Ultra2 Meter) lancets 30 gauge (OneTouch #100 ea 05/09/23 UltraSoft 2 Lancet) atorvastatin 80 mg tablet 80 mg PO DAILY #90 tabs 09/11/23 furosemide 40 mg tablet 40 mg PO BID #90 tabs 04/17/24 apixaban 5 mg tablet (Eliquis) 5 mg PO BID #180 tabs 05/01/24 tamsulosin 0.4 mg capsule (Flomax) 0.4 mg PO BEDTIME #30 caps 05/06/24 empagliflozin 10 mg tablet 10 mg PO DAILY #30 tabs 05/28/24 (Jardiance) sacubitril 49 mg-valsartan 51 mg 1 tab PO BID #60 tabs 05/28/24 tablet (Entresto) amiodarone 200 mg tablet 200 mg PO BID 30 days #60 tabs 06/17/24 azithromycin 250 mg tablet See Rx Instructions PO .COMPLEX #6 06/21/24 tabs cefuroxime axetil 500 mg tablet 500 mg PO Q12H #14 tabs 06/21/24 Allergies Allergy/AdvReac Type Severity Reaction Status Date / Time No Known Allergies Allergy Verified 07/03/24 21:12 [No Known Allergies*] Review of Systems 2 Review of Systems: Yes all other systems are reviewed and are negative Constitutional: Constitutional: Reports fatigue, Denies fever(s) and Reports malaise Cardiovascular: Cardiovascular: Denies chest pain and Reports dyspnea Respiratory: Respiratory: Reports chest congestion, Reports cough, Reports excessive phlegm production and Reports dyspnea Gastrointestinal: Gastrointestinal: Denies diarrhea, Denies nausea and Denies vomiting Endocrine: Endocrine: Reports fatigue PMFSH Past Medical History Attestation statement: The following information was validated with the patient. Medical History (Updated 07/04/24 @ 01:06 by JADEN Haider) Persistent atrial fibrillation Congestive heart failure Atrial flutter Atrial fibrillation with rapid ventricular response Atrial fibrillation Alcohol use Hyperlipidemia LDL goal <70 Diabetes mellitus Chronic sore throat Colon perforation Foreign body in sigmoid colon Onychomycosis 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 pylori) GERD (gastroesophageal reflux disease) Breast pain Dyslipidemia Essential hypertension Obese Abdominal mass Insomnia Surgical History H/O abdominal surgery History of colonoscopy Family History Family History Father No problems noted. Mother Kidney failure Social History Social History Household Members: None Housing: Apartment Do you presently have visiting nurse or other home services: Yes (mining captain services just set up; currently looking for a mining captain) Alcohol intake: former Patient Tobacco Use Status: Former Tobacco user Tobacco use type: Cigarette e-Cigarette/Vaping Use: Never Used Second Hand Smoke Exposure: No Advance Directives: No Advance Directives Information Provided: Yes Do you have a plan to hurt others: No Plan service: No Current occupational status: retired Cognitive needs: No Hearing needs: No Vision needs: No Physical Exam ED Vital Signs: Vital Signs - 24 hr 07/03/24 21:07 07/04/24 00:00 Temperature 97.4 F 97.5 F Pulse Rate 98 103 H Respiratory Rate 18 16 Blood Pressure 113/77 98/77 Pulse Oximetry 93 93 Oxygen Delivery Method Room Air Room Air BMI result Body Mass Index 37.1 Const Other: Alert, Orientation/consciousness: patient oriented x3 Resp Other: Tachypneic, bibasilar crackles noted posterior bach Cardio Other: Normal peripheral perfusion Skin Other: Warm dry no rash Neuro General: patient oriented x3, no focal motor deficits and CN's II-XI intact bilaterally Psych Other: Calm cooperative Medications Administered Discontinued Medications Generic Name Dose Route Start Last Admin Trade Name Freq PRN Reason Stop Dose Admin Ceftriaxone Sodium 2 gm 07/04/24 00:13 07/04/24 00:41 Ceftriaxone Sodium 2 Gm Vial IVPUSH 07/04/24 00:14 2 gm ONCE ONE Administration Doxycycline Hyclate 100 mg/ 250 mls @ 166.67 mls/hr 07/04/24 00:13 07/04/24 00:41 Sodium Chloride IV 07/04/24 01:42 166.67 mls/hr ONCE ONE Administration Medical Decision Making Medical Decision Making MDM Narrative: 63 y/o M with hx of recent outpt tx for CAP 06/21/2024, COPD, atrial fibrillation on Eliquis, obesity, coronary artery disease status post stenting, anxiety, GERD, hypertension, hyperlipidemia, obesity, alcohol use disorder , presents with worsening cough and shortness of breath. Patient states he has been feeling weak, with generalized malaise since yesterday. Patient notes worsening shortness of breath, he is now expelling brown tinged sputum. Denies chest pain, nausea, vomiting or known fevers. Patient states he completed the prescribed medications he was sent home with. Problem: Recent pneumonia, COPD, AFib, vascular disease, alcohol abuse History: Per patient I have considered the following differential diagnoses: Worsening pneumonia, failed outpatient treatment, COPD exacerbation, viral syndrome, sepsis Plan: Patient's chest x-ray looks worse than it did the beginning of the month, his symptoms have progressed, he will be admitted due to failed outpatient treatment. He is QT prolongation on EKG, checking a Mag level giving magnesium IV, we will cover with ceftriaxone and doxycycline. Obtaining blood cultures and a lactic acid. Rectally his temp was 99?...... Does not meet sepsis criteria at this time. Screening labs including a viral panel were obtained from triage. I spoke with the inpatient team, about ordering a CT of the chest, they are in agreement. I have independently reviewed the following tests: Labs: No leukocytosis but left shift noted, not anemic, no electrolyte abnormality, creatinine 1.27, lactate 1.6, BNP 1922, viral panel neg EKG: AFib, rate of 92, left bundle branch block, qt 534, will give 2 gm mag the level was never checked CXR: XR/XR chest 2V IMPRESSION: *Findings suspicious for mild-moderate pulmonary edema. Findings could also represent pneumonia and a fortuitously bilaterally symmetric configuration. *Possible trace right pleural effusion. *Cardiomegaly. Electronically signed by: Damian Colunga MD 07/04/2024 12:10 AM [facility] Lab Data 07/03/24 21:30 07/03/24 21:30 Labs: Lab Results 07/03/24 07/04/24 Range/Units 21:30 00:32 WBC 8.0 (4.8-10.8) X10*3/uL RBC 5.06 (4.60-5.80) X10*6/uL Hgb 14.7 (14.0-18.0) g/dl Hct 42.6 (42.0-52.0) % MCV 84.2 (80.0-98.0) fL MCH 29.1 (27.0-33.0) pg MCHC 34.5 (31.0-36.0) g/dl RDW 14.2 (11.0-16.0) % Plt Count 204 D (160-400) X10*3/uL MPV 11.9 (9.4-12.4) fL Immature Gran % (Auto) 0.3 (0.0-0.4) % Neut % (Auto) 79.7 H (45-73) % Lymph % (Auto) 11.8 L (20-40) % [place] % (Auto) 7.0 (2-11) % Eos % (Auto) 0.3 (0-4) % Baso % (Auto) 0.9 (0-2) % Lymph # (Auto) 0.9 L (1.2-4.9) X10*3/uL [place] # (Auto) 0.6 (0.1-1.2) X10*3/uL Eos # (Auto) 0.0 (0.0-0.4) X10*3/uL Baso # (Auto) 0.1 (0.0-0.2) X10*3/uL Abs Immat Gran (auto) 0.02 (0.00-0.03) X10*3/uL Absolute Neuts (auto) 6.4 (2.0-8.3) x10*3/uL Absolute Nucleated RBC 0.000 (0.0-0.012) X10*3/uL Nucleated RBC % (auto) 0.0 (0.0-0.2) /100WBC Sodium 140 (135-145) mmol/L Potassium 3.4 (3.3-5.1) mmol/L Chloride 103 (96-108) mmol/L Carbon Dioxide 23 (22-29) mmol/L Anion Gap 17 (12-20) BUN 27 H (9-16) mg/dL Creatinine 1.27 (0.5-1.4) mg/dL Estim Creat Clear Calc 57.0 Estimated GFR 57 Random Glucose 146 H (60-115) mg/dL Lactic Acid 1.6 (0.5-2.0) mmol/L Calcium 8.9 (8.4-10.2) mg/dL Total Bilirubin 1.1 H (0.0-1.0) mg/dL AST 49 H (5-37) U/L ALT 45 H (0-40) U/L Alkaline Phosphatase 51 (39-117) U/L Troponin I High Sens 29.3 D (<3.5-35.0) ng/L B-Natriuretic Peptide 1922 H (<100) pg/mL Total Protein 6.6 (6.5-8.0) g/dL Albumin 4.0 (3.5-5.0) g/dL Influenza Type A (PCR) NEGATIVE (Negative) Influenza Type B (PCR) NEGATIVE (Negative) RSV RNA Qual (PCR) NEGATIVE (Negative) SARS-CoV-2 RNA (RT-PCR) NEGATIVE (Negative) Discharge Plan Discharge Clinical Impression: Pneumonia Patient Disposition: Admitted As Inpatient Print Language: Austrian
[2024-07-04] MEDS: Doxycycline Hyclate 100 MG in 0.9 % Sodium Chloride 250 ML 166.67 MG IV (00:41)
[2024-07-04] MEDS: cefTRIAXone sodium 2 GM VIAL IVPUSH (00:41)
[2024-07-04 00:51] LABS: Lactic Acid 1.6 mmol/L (0.5-2.0)
[2024-07-04 01:30] LABS: Magnesium 2.1 mg/dL (1.6-2.6)
--- NOTE | 2024-07-04 01:34 | PC.NURSE ---
Provider Zak peralta mag. Plan of care ongoing.
--- NOTE | 2024-07-04 01:48 | PC.NURSE ---
per dr casillas cancelled doxycycline, documented per oct.
[2024-07-04] MEDS: Furosemide 40 MG/4 ML VIAL IVPUSH ×3 (02:33→17:02)
--- NOTE | 2024-07-04 04:22 | PM.IMHP ---
History of Present Illness Date of Service: 07/04/24 Chief Complaint: Dyspnea This is a 62-year-old male with pertinent history of congestive heart failure with reduced ejection fraction, persistent atrial fibrillation on Eliquis, BPH, mood disorder, mixed hyperlipidemia, CAD status post stent who presents to the emergency department for evaluation of dyspnea. Patient states his symptoms started 3 days prior to presentation. He has been having dyspnea which is worse with exertion. Dyspnea is also worse when lying flat. Has been having cough with dyspnea. He was recently treated outpatient for community-acquired pneumonia earlier in the month and he completed his antibiotic course. No fever, chills, nausea, vomiting. No chest pain or palpitations. Denies abdominal discomfort, changes in urinary or bowel habits. Patient is Kiswahili speaking and history obtained in the help of crop grain or livestock farmer In the emergency department, imaging with pulmonary edema and BNP found to be elevated. Patient given IV Lasix Review of Systems Constitutional: Constitutional: Reports fatigue and Reports malaise Cardiovascular: Cardiovascular: Reports dyspnea on exertion and Reports orthopnea Respiratory: Respiratory: Reports dyspnea on exertion Gastrointestinal: Gastrointestinal: Reports no additional gastrointestinal complaints Genitourinary: Genitourinary: Reports no additional male genitourinary complaints Endocrine: Endocrine: Reports fatigue [facility] Medical History Persistent atrial fibrillation Congestive heart failure Atrial flutter Atrial fibrillation with rapid ventricular response Atrial fibrillation Alcohol use Hyperlipidemia LDL goal <70 Diabetes mellitus Chronic sore throat Colon perforation Foreign body in sigmoid colon Onychomycosis 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 pylori) GERD (gastroesophageal reflux disease) Breast pain Dyslipidemia Essential hypertension Obese Abdominal mass Insomnia Family History Father No problems noted. Mother Kidney failure Surgical History H/O abdominal surgery History of colonoscopy Social History Household Members: None Housing: Apartment Do you presently have visiting nurse or other home services: Yes (fitness and wellness instructor services just set up; currently looking for a fitness and wellness instructor) Alcohol intake: former Patient Tobacco Use Status: Former Tobacco user Tobacco use type: Cigarette Smoked in Last 30 Days: No e-Cigarette/Vaping Use: Never Used Second Hand Smoke Exposure: No Use of substances other than those prescribed or required for medical reasons: No Advance Directives: No Advance Directives Information Provided: Yes Do you have a plan to hurt others: No Plan service: No Current occupational status: retired Cognitive needs: No Hearing needs: No Vision needs: No Meds Allergies Allergy/AdvReac Type Severity Reaction Status Date / Time No Known Allergies Allergy Verified 07/03/24 21:12 [No Known Allergies*] Home Medications ?Medication ?Instructions ?Recorded ?Confirmed ?Last Taken ?Type trazodone 100 mg tablet 200 mg PO BEDTIME 03/19/24 07/04/24 07/03/24 09:00 History metoprolol succinate 50 mg 25 mg PO DAILY 04/17/24 07/04/24 07/03/24 09:00 History tablet,extended release 24 hr aspirin 81 mg tablet,delayed 81 mg PO DAILY 05/24/24 07/04/24 07/03/24 09:00 History release sertraline 50 mg tablet 50 mg PO DAILY 06/17/24 07/04/24 07/03/24 09:00 History Physical Exam Vital Signs and Narrative: Vital Signs: Last Vital Signs Temp 98.7 F 07/04/24 02:21 Pulse 91 07/04/24 02:21 Resp 20 07/04/24 02:21 BP 126/83 07/04/24 02:33 Pulse Ox 91 L 07/04/24 02:21 O2 Del Method Room Air 07/04/24 02:21 BMI result Body Mass Index 37.1 Middle-aged male lying in bed in no distress Neck supple Regular rate and rhythm, S1-S2 heard Bilateral crackles present Abdomen soft nontender, no guarding, no rigidity Patient is awake, alert and oriented to self, place, time and person ; no focal motor deficit Psych: Normal mood Results Labs 07/03/24 21:30 07/03/24 21:30 Labs: Laboratory Results - last 24 hr 07/03/24 07/04/24 21:30 00:32 MCV 84.2 MCH 29.1 MCHC 34.5 RDW 14.2 Plt Count 204 D MPV 11.9 Immature Gran % (Auto) 0.3 Neut % (Auto) 79.7 H Lymph % (Auto) 11.8 L [place] % (Auto) 7.0 Eos % (Auto) 0.3 Baso % (Auto) 0.9 Lymph # (Auto) 0.9 L [place] # (Auto) 0.6 Eos # (Auto) 0.0 Baso # (Auto) 0.1 Abs Immat Gran (auto) 0.02 Absolute Neuts (auto) 6.4 Absolute Nucleated RBC 0.000 Nucleated RBC % (auto) 0.0 Anion Gap 17 Estim Creat Clear Calc 57.0 Estimated GFR 57 Random Glucose 146 H Lactic Acid 1.6 Calcium 8.9 Magnesium 2.1 Total Bilirubin 1.1 H AST 49 H ALT 45 H Alkaline Phosphatase 51 Troponin I High Sens 29.3 D B-Natriuretic Peptide 1922 H Total Protein 6.6 Albumin 4.0 Influenza Type A (PCR) NEGATIVE Influenza Type B (PCR) NEGATIVE RSV RNA Qual (PCR) NEGATIVE SARS-CoV-2 RNA (RT-PCR) NEGATIVE Imaging Radiologist's Impressions: Impressions Chest X-Ray 07/03/24 22:20 IMPRESSION: *Findings suspicious for mild-moderate pulmonary edema. Findings could also represent pneumonia and a fortuitously bilaterally symmetric configuration. *Possible trace right pleural effusion. *Cardiomegaly. Electronically signed by: Damian Colunga MD 07/04/2024 12:[address] [place] [address] 07/04/24 01:45 IMPRESSION: 1. CT pulmonary angiogram negative for pulmonary emboli. 2. Findings suspicious for resolving moderate interstitial pulmonary edema. Diffuse intralobular septal thickening is noted in association with scattered alveolar opacities which demonstrate subpleural sparing. Subpleural sparing is typically seen in the setting of resolving pulmonary edema secondary to the dual lymphatic supply of the subpleural pulmonary parenchyma. A small number of scattered foci of consolidation are additionally noted, primarily within the right upper pulmonary lobe. All these findings have the typical appearance of pulmonary edema. However, an atypical/viral infection could have a similar appearance though typically infection is more heterogeneous and asymmetric in distribution. 3. Trace bilateral pleural effusions. 4. Four-chamber cardiomegaly. VTE: Negative Electronically signed by: Damian Colunga MD 07/04/2024 04:16 AM EST [place] Assessment and Plan (1) Decompensated heart failure: Status: Acute Plan This is a 62-year-old male with pertinent history of congestive heart failure with reduced ejection fraction, persistent atrial fibrillation on Eliquis, BPH, mood disorder, mixed hyperlipidemia, CAD status post stent who presents to the emergency department for evaluation of dyspnea. #. Acute on chronic congestive heart failure with reduced EF: Will admit patient and initiate IV diuresis. Strict I's and O's. Low-salt diet. Patient is on Entresto, Jardiance and beta-akanksha #. Coronary artery disease/mixed hyperlipidemia: On aspirin and high-intensity statin #. Persistent atrial fibrillation: On beta-akanksha, amiodarone and Eliquis #. BPH: On Flomax #. Mood disorder: On sertraline and trazodone Med rec pending DVT prophylaxis: Eliquis Full code Quality Stroke Does the patient have a stroke diagnosis?: No VTE Prior VTE?: No VTE Risk Level:: Medical - moderate - high VTE Device Contraindication: Treatment Not Indicated VTE Drug Contraindication: N/A - Med Ordered
[2024-07-04 04:56] LABS: Basophils Absolute Auto 0.1 X10*3/uL (0.0-0.2); Basophils Percent Auto 0.6 % (0-2); Eosinophils Percent Auto 0.1 % (0-4); Hematocrit 42.5 % (42.0-52.0); Hemoglobin 14.6 g/dl (14.0-18.0); Imm Gran Abs Auto 0.03 X10*3/uL (0.00-0.03); Imm Gran Pct Auto 0.3 % (0.0-0.4); Lymphocytes Absolute Auto 0.8 X10*3/uL (1.2-4.9); Lymphocytes Percent Auto 7.8 % (20-40); MANUAL DIFF FLAG NO; Mean Corpuscular HGB Conc 34.4 g/dl (31.0-36.0); Mean Corpuscular Hemoglobin 29.1 pg (27.0-33.0); Mean Corpuscular Volume 84.7 fL (80.0-98.0); Mean Platelet Volume 11.7 fL (9.4-12.4); Monocytes Absolute Auto 0.5 X10*3/uL (0.1-1.2); Monocytes Percent Auto 5.5 % (2-11); Neutrophils Absolute Auto 8.5 x10*3/uL (2.0-8.3); Neutrophils Percent Auto 85.7 % (45-73); Platelet Count 196 X10*3/uL (160-400); Red Blood Count 5.02 X10*6/uL (4.60-5.80); Red Cell Distribution Width 14.2 % (11.0-16.0); White Blood Count 9.9 X10*3/uL (4.8-10.8)
[2024-07-04] MEDS: traZODone HCL 100 MG TABLET 200 MG PO ×2 (05:02→19:35)
[2024-07-04 05:08] LABS: Anion Gap 16 (12-20); Blood Urea Nitrogen 28 mg/dL (9-16); Calcium 9.5 mg/dL (8.4-10.2); Carbon Dioxide 23 mmol/L (22-29); Chloride 103 mmol/L (96-108); Creatinine Clr Calc Pharmacy 56.6; Estimated Glomerular Filt Rate 56; Glucose Random 106 mg/dL (60-115); Potassium 3.1 mmol/L (3.3-5.1); Sodium 139 mmol/L (135-145)
--- NOTE | 2024-07-04 08:36 | PC.NURSE ---
patient sleeping/woke to verbal stimulus, rr equal/non labored- BLL diminished with LLL fine crackles, pt afib with occasional pvcs- on eliquist at baseline. denies pain/discomfort, pt on 2L NC by nights as his O2 sat was 90, ambulates independently with steady gait and is currently sitting in recliner eating breakfast. call villatoro within reach, will continue plan of care
[2024-07-04] MEDS: Amiodarone HCL 200 MG TABLET PO ×2 (09:01→19:35)
[2024-07-04] MEDS: Metoprolol Succinate ER 25 MG TAB.ER.24H PO (09:01)
[2024-07-04] MEDS: Apixaban 5 MG TABLET PO ×2 (09:01→19:35)
[2024-07-04] MEDS: Aspirin Enteric Coated 81 MG TABLET.DR PO (09:01)
[2024-07-04] MEDS: Sertraline HCL 50 MG TABLET PO (09:01)
[2024-07-04] MEDS: Atorvastatin Calcium 80 MG TABLET PO (09:01)
[2024-07-04] MEDS: Empagliflozin 10 MG TABLET PO (09:02)
[2024-07-04] MEDS: 0.9 % Sodium Chloride Flush 3 ML SYRINGE IVFLUSH ×3 (09:02→19:35)
--- NOTE | 2024-07-04 09:06 | PC.NURSE ---
this nurse contacted Dr. Diaz as the pt has metoprolol xr ordered likely for rate control for afib and pts BP has been softer, Dr. Diaz requested to hold the entresto via tiger text vs metoprolol. this nurse held the entresto per his request.
--- NOTE | 2024-07-04 09:09 | PHA.MEDREC ---
Pharmacy Consult ? Medication Reconciliation Pharmacy has reviewed the medication reconciliation completed by nursing. Called nai'ts friend Gina Apodaca, and confirmed pt is also still on olanzapine and spirinolactone.
[2024-07-04 09:19] LABS: Glucose, Whole Blood 135 mg/dL (60-115)
--- NOTE | 2024-07-04 09:19 | PC.NURSE ---
pt stating his pain has increased to 7-8/10 pain, pt medicated per order, will continue to monitor
--- NOTE | 2024-07-04 09:29 | PC.NURSE ---
report previously called to overflow nurse updated via tiger text
--- NOTE | 2024-07-04 10:43 | PC.NURSE ---
Pt oriented to unit. he prefers to sit in recliner, oxygen in place, call villatoro in reach.
--- NOTE | 2024-07-04 11:27 | P.PNIM_ITS ---
Subjective Subjective Date of Service: 07/04/24 Interval History: sob a bit better Physical Exam 2 Vital Signs: Vital Signs: Last Vital Signs Temp 98.0 F 07/04/24 08:31 Pulse 90 07/04/24 09:01 Resp 20 07/04/24 08:31 BP 109/78 07/04/24 09:01 Pulse Ox 92 07/04/24 08:31 O2 Del Method Nasal Cannula 07/04/24 08:31 O2 Flow Rate 2 07/04/24 08:31 BMI result Body Mass Index 37.1 General: AO X 3, no acute distress Resp: CTA bilateral, no accessory muscles used CVS: S1,S2,RRR GI: soft, non tender, non distended Neuro: motor grossly intact, alert Psych: appropriate affect, appropriate insight Objective Data Active Medications Acetaminophen (Acetaminophen 325 Mg Tablet) 650 mg PO Q6H PRN PRN Reason: Pain, Mild (Pain Scale 1-3), fever or headache Amiodarone HCl (Amiodarone Hcl 200 Mg Tablet) 200 mg PO BID [facility] Last Admin: 07/04/24 09:01 Dose: 200 mg Documented By: VIKTOR Apixaban (Apixaban 5 Mg Tablet) 5 mg PO BID [facility] Last Admin: 07/04/24 09:01 Dose: 5 mg Documented By: VIKTOR Aspirin (Aspirin Enteric Coated 81 Mg Tablet.) 81 mg PO DAILY [facility] Last Admin: 07/04/24 09:01 Dose: 81 mg Documented By: VIKTOR Atorvastatin Calcium (Atorvastatin Calcium 80 Mg Tablet) 80 mg PO DAILY [facility] Last Admin: 07/04/24 09:01 Dose: 80 mg Documented By: VIKTOR Calcium Carbonate (Calcium Carbonate 750 Mg Tab.Chew) 750 mg PO Q4H PRN PRN Reason: Heartburn Empagliflozin (Empagliflozin 10 Mg Tablet) 10 mg PO DAILY [facility] Last Admin: 07/04/24 09:02 Dose: 10 mg Documented By: VIKTOR Furosemide (Furosemide 40 Mg/4 Ml Vial) 40 mg IVPUSH BID@0800,1700 [facility]; Protocol Last Admin: 07/04/24 09:01 Dose: 40 mg Documented By: VIKTOR Magnesium Hydroxide (Milk Of Magnesia 30 Ml Oral.Susp) 30 ml PO DAILY PRN PRN Reason: Constipation Melatonin (Melatonin 3 Mg Tablet) 6 mg PO BEDTIME PRN PRN Reason: Insomnia Metoprolol Succinate (Metoprolol Succinate Er 25 Mg Tab.Er.24h) 25 mg PO DAILY [facility]; Protocol Last Admin: 07/04/24 09:01 Dose: 25 mg Documented By: VIKTOR Olanzapine (Olanzapine 10 Mg Tablet) 10 mg PO BEDTIME [facility] Ondansetron HCl (Ondansetron Hcl 4 Mg/2 Ml Vial) 4 mg IVPUSH Q8H PRN PRN Reason: Nausea and Vomiting Sacubitril/Valsartan (Sacubitril/Valsartan 49/51 1 Tab Tablet) 1 tab PO BID [facility]; Protocol Last Admin: 07/04/24 09:00 Dose: Not Given Documented By: VIKTOR Non-Admin Reason: Physician Held Med Sertraline HCl (Sertraline Hcl 50 Mg Tablet) 50 mg PO DAILY [facility] Last Admin: 07/04/24 09:01 Dose: 50 mg Documented By: VIKTOR Sodium Chloride (0.9 % Sodium Chloride Flush 3 Ml Syringe) 3 ml IVFLUSH QSHIFT [facility] Last Admin: 07/04/24 09:02 Dose: 3 ml Documented By: VIKTOR Spironolactone (Spironolactone 25 Mg Tablet) 25 mg PO DAILY [facility]; Protocol Tamsulosin HCl (Tamsulosin Hcl 0.4 Mg Capsule) 0.4 mg PO BEDTIME [facility] Trazodone HCl (Trazodone Hcl 100 Mg Tablet) 200 mg PO BEDTIME [facility] Labs 07/04/24 04:50 07/04/24 04:50 Labs: Laboratory Results - last 24 hr 07/03/24 07/04/24 07/04/24 21:30 00:32 04:50 MCV 84.2 84.7 MCH 29.1 29.1 MCHC 34.5 34.4 RDW 14.2 14.2 Plt Count 204 D 196 MPV 11.9 11.7 Immature Gran % (Auto) 0.3 0.3 Neut % (Auto) 79.7 H 85.7 H Lymph % (Auto) 11.8 L 7.8 L [place] % (Auto) 7.0 5.5 Eos % (Auto) 0.3 0.1 Baso % (Auto) 0.9 0.6 Lymph # (Auto) 0.9 L 0.8 L [place] # (Auto) 0.6 0.5 Eos # (Auto) 0.0 0.0 Baso # (Auto) 0.1 0.1 Abs Immat Gran (auto) 0.02 0.03 Absolute Neuts (auto) 6.4 8.5 H Absolute Nucleated RBC 0.000 0.000 Nucleated RBC % (auto) 0.0 0.0 Anion Gap 17 16 Estim Creat Clear Calc 57.0 56.6 Estimated GFR 57 56 POC Glucose Random Glucose 146 H 106 Lactic Acid 1.6 Calcium 8.9 9.5 D Magnesium 2.1 Total Bilirubin 1.1 H AST 49 H ALT 45 H Alkaline Phosphatase 51 Troponin I High Sens 29.3 D B-Natriuretic Peptide 1922 H Total Protein 6.6 Albumin 4.0 Influenza Type A (PCR) NEGATIVE Influenza Type B (PCR) NEGATIVE RSV RNA Qual (PCR) NEGATIVE SARS-CoV-2 RNA (RT-PCR) NEGATIVE 07/04/24 09:16 MCV MCH MCHC RDW Plt Count MPV Immature Gran % (Auto) Neut % (Auto) Lymph % (Auto) [place] % (Auto) Eos % (Auto) Baso % (Auto) Lymph # (Auto) [place] # (Auto) Eos # (Auto) Baso # (Auto) Abs Immat Gran (auto) Absolute Neuts (auto) Absolute Nucleated RBC Nucleated RBC % (auto) Anion Gap Estim Creat Clear Calc Estimated GFR POC Glucose 135 H Random Glucose Lactic Acid Calcium Magnesium Total Bilirubin AST ALT Alkaline Phosphatase Troponin I High Sens B-Natriuretic Peptide Total Protein Albumin Influenza Type A (PCR) Influenza Type B (PCR) RSV RNA Qual (PCR) SARS-CoV-2 RNA (RT-PCR) Assessment and Plan (1) NICM (nonischemic cardiomyopathy): Status: Acute Plan 63M PMH hfref, chronic afib, bph, mood idosrder, hld, CAD presented with sob Acute on chronic systolic CHF Continue IV Lasix, beta-akanksha, monitor I's and O's CAD Aspirin, statin, Eliquis Chronic AFib Continue metoprolol, amiodarone, Eliquis BPH Continue Flomax Mood disorder Continue olanzapine, sertraline DVT prophylaxis on Eliquis Full Code reason for continued hospitalization:ongoing iv diuresis, still sob Quality Stroke Does the patient have a stroke diagnosis?: No VTE Prior VTE?: No VTE Risk Level:: Medical - moderate - high VTE Device Contraindication: Treatment Not Indicated VTE Drug Contraindication: N/A - Med Ordered
[2024-07-04] MEDS: Potassium Chloride ER 20 MEQ TAB.ER.PRT 40 MEQ PO (12:22)
[2024-07-04] MEDS: Acetaminophen 325 MG TABLET 650 MG PO (17:00)
[2024-07-04] MEDS: Melatonin 3 MG TABLET 6 MG PO (19:34)
[2024-07-04] MEDS: OLANZapine 10 MG TABLET PO (19:35)
[2024-07-04] MEDS: Tamsulosin HCL 0.4 MG CAPSULE PO (19:35)
[2024-07-04] MEDS: Sacubitril/Valsartan 49/51 1 TAB TABLET PO (19:35)
--- NOTE | 2024-07-04 22:35 | PC.NURSE ---
Pt reported falls at home prior to admission but refusing bed alarm. Educated pt with seismic interpreter about fall risk and keeping pt safe from falling. Pt still refusing bed alarm but agreed to a telesitter. Will continue to monitor.
[2024-07-05 03:49] VITALS: BP 108/73; PULSE 80; RESP 18; TEMP 36.9; O2SAT 94
[2024-07-05 07:01] LABS: Anion Gap 14 (12-20); Blood Urea Nitrogen 31 mg/dL (9-16); Calcium 9.2 mg/dL (8.4-10.2); Carbon Dioxide 25 mmol/L (22-29); Chloride 106 mmol/L (96-108); Creatinine Clr Calc Pharmacy 60.9; Estimated Glomerular Filt Rate > 60; Glucose Fasting 88 mg/dL (60-99); Potassium 3.1 mmol/L (3.3-5.1); Sodium 142 mmol/L (135-145)
[2024-07-05 07:05] LABS: Hematocrit 42.9 % (42.0-52.0); Hemoglobin 14.7 g/dl (14.0-18.0); Mean Corpuscular HGB Conc 34.3 g/dl (31.0-36.0); Mean Corpuscular Volume 84.6 fL (80.0-98.0); Mean Platelet Volume 12.5 fL (9.4-12.4); Platelet Count 196 X10*3/uL (160-400); Red Blood Count 5.07 X10*6/uL (4.60-5.80); Red Cell Distribution Width 14.3 % (11.0-16.0); White Blood Count 7.8 X10*3/uL (4.8-10.8)
[2024-07-05 07:23] VITALS: BP 100/56; PULSE 82; RESP 16; TEMP 36.3; O2SAT 92
[2024-07-05] MEDS: Empagliflozin 10 MG TABLET PO (08:07)
[2024-07-05] MEDS: Atorvastatin Calcium 80 MG TABLET PO (08:07)
[2024-07-05] MEDS: Aspirin Enteric Coated 81 MG TABLET.DR PO (08:07)
[2024-07-05] MEDS: Apixaban 5 MG TABLET PO (08:07)
[2024-07-05] MEDS: Furosemide 40 MG/4 ML VIAL IVPUSH (08:07)
[2024-07-05] MEDS: 0.9 % Sodium Chloride Flush 3 ML SYRINGE IVFLUSH (08:07)
[2024-07-05] MEDS: Metoprolol Succinate ER 25 MG TAB.ER.24H PO (08:07)
[2024-07-05] MEDS: Sertraline HCL 50 MG TABLET PO (08:07)
[2024-07-05] MEDS: Amiodarone HCL 200 MG TABLET PO (08:23)
[2024-07-05] MEDS: Potassium Chloride ER 20 MEQ TAB.ER.PRT 40 MEQ PO (08:40)
--- NOTE | 2024-07-05 09:35 | PM.DS ---
DS: Providers Provider Date of Service: 07/05/24 Date of admission: 07/04/24 09:32 Date of discharge: 07/05/24 Primary care physician: Gina Le MD DS: Diagnosis Discharge Diagnosis (1) NICM (nonischemic cardiomyopathy): Status: Acute DS: Summary Hospital Course Hospital Course: from initial hpi: 62-year-old male with pertinent history of congestive heart failure with reduced ejection fraction, persistent atrial fibrillation on Eliquis, BPH, mood disorder, mixed hyperlipidemia, CAD status post stent who presents to the emergency department for evaluation of dyspnea. Patient states his symptoms started 3 days prior to presentation. He has been having dyspnea which is worse with exertion. Dyspnea is also worse when lying flat. Has been having cough with dyspnea. He was recently treated outpatient for community-acquired pneumonia earlier in the month and he completed his antibiotic course. No fever, chills, nausea, vomiting. No chest pain or palpitations. Denies abdominal discomfort, changes in urinary or bowel habits. Patient is Nauruan speaking and history obtained in the help of materials engineering technician In the emergency department, imaging with pulmonary edema and BNP found to be elevated. Patient given IV Lasix hospital course: Patient was admitted for acute on chronic systolic CHF. Was treated with IV Lasix and symptoms resolved. He was feeling back to baseline and will continue on his maintenance Lasix 40 mg b.i.d.. Coronary disease was continued on aspirin, statin, Eliquis. For chronic atrial fibrillation was continued on metoprolol, amiodarone, Eliquis. For hypokalemia was given supplement. For BPH was continued on Flomax. For mood disorder was continued on olanzapine and sertraline. Time Attestation Discharge Coordination Time (in mins): 33 Quality: Safe Use of Opioids Does Pt have an Active Cancer Diagnosis on the Problem List?: No Quality: Stroke Does the patient have a stroke diagnosis?: No Physical Exam Vital Signs: Vital Signs: Last Vital Signs Temp 97.3 F 07/05/24 07:23 Pulse 82 07/05/24 07:23 Resp 16 07/05/24 07:23 BP 100/56 L 07/05/24 07:23 Pulse Ox 92 07/05/24 07:23 O2 Del Method Room Air 07/05/24 07:23 O2 Flow Rate 3 07/04/24 15:35 BMI result Body Mass Index 37.1 General: AO X 3, no acute distress Resp: CTA bilateral, no accessory muscles used CVS: S1,S2,RRR GI: soft, non tender, non distended Neuro: motor grossly intact, alert Psych: appropriate affect, appropriate insight DS: Data Data Completed and Pending Completed studies during hospitalization [Text1]: Procedures Confucianism of Cardiac Rhythm, Single (05/24/24) Ultrasonography of Heart with Aorta, Transesophageal (03/19/24) Labs on day of discharge: Laboratory Results - last 24 hr 07/05/24 05:06 WBC 7.8 RBC 5.07 Hgb 14.7 Hct 42.9 MCV 84.6 MCH 29.0 MCHC 34.3 RDW 14.3 Plt Count 196 MPV 12.5 H Absolute Nucleated RBC 0.000 Nucleated RBC % (auto) 0.0 Sodium 142 Potassium 3.1 L Chloride 106 Carbon Dioxide 25 Anion Gap 14 BUN 31 H Creatinine 1.19 Estim Creat Clear Calc 60.9 Estimated GFR > 60 Fasting Glucose 88 Calcium 9.2 Preliminary micro results at discharge 07/04/24 00:32 Blood Culture - Preliminary Blood - Venous No growth after 24 hours. 07/04/24 00:32 Blood Culture - Preliminary Blood - Venous No growth after 24 hours. Discharge Plan Discharge Anticipated Discharge Date/Time: 07/05/24 09:33 Patient Disposition: Home, Self-Care Discharge Diagnosis: chf Referrals: Gina Davey MD [Primary Care Provider] - 1 Week Discharge Medications: Continued atorvastatin 80 mg tablet 80 mg PO DAILY Qty: 90 3RF Eliquis 5 mg tablet 5 mg PO BID Qty: 180 0RF trazodone 100 mg tablet 200 mg PO BEDTIME metoprolol succinate 50 mg tablet extended release 24 hr 25 mg PO DAILY aspirin 81 mg tablet,delayed release (DR/EC) 81 mg PO DAILY Jardiance 10 mg Tablet 10 mg PO DAILY Qty: 30 0RF Entresto 49-51 mg Tablet 1 tab PO BID Qty: 60 0RF Protocol: Hold for SBP< HOLD for SBP < : 90 olanzapine 10 mg tablet 10 mg PO BEDTIME spironolactone 25 mg tablet 25 mg PO DAILY (DME) blood-glucose meter [OneTouch Ultra2 Meter] Misc See Rx Instructions .Route Qty: 1 0RF Rx Instructions: As directed (DME) OneTouch Ultra Test Strip See Rx Instructions .Route Qty: 100 2RF Rx Instructions: Use 1 test strip once a day (DME) lancets [OneTouch UltraSoft 2 Lancet] 30 gauge misc See Rx Instructions .Route Qty: 100 2RF Rx Instructions: Use 1 lancet once a day (DME) lancets [FreeStyle Lancets] 28 gauge misc See Rx Instructions .Route Qty: 100 3RF Rx Instructions: Use 1 lancet once a day tamsulosin [Flomax] 0.4 mg capsule 0.4 mg PO BEDTIME Qty: 30 2RF furosemide 40 mg tablet 40 mg PO BID Qty: 90 3RF sertraline 50 mg tablet 50 mg PO DAILY amiodarone 200 mg tablet 200 mg PO BID 30 Days Qty: 60 3RF Discharge Orders: Discharge Order (Routine); Ordered 07/05/24 Ordered By: Aram Diaz Diet: Advance to usual diet Activity on Discharge: As tolerated Stand Alone Forms: Patient Portal Discharge page Print Language: Nauruan Care Plan Goals: Manage CHF Health Concerns: CHF Plan of Treatment: Continue home meds follow up with Cardiology Assessment: See above
--- NOTE | 2024-07-05 10:36 | MHC.CM.PN ---
IMM DELIVERED CM MET WITH PT AT BEDSIDE WITH HR ADVISOR. PT LIVES ALONE. INDEPENDENT WITH MOBILITY. +HCP ON FILE AND VERIFIED. PCP DR. BE URBINA. DP: PT HAS BEEN MEDICALLY CLEARED FOR DC HOME, NO SERVICES. PT HAS OWN RIDE HOME.
--- OUTSIDE RECORDS SUMMARY | 2024-07-05 14:33 | XMS_ITS | Continuity of Care Document ---
Author Organization [facility] Address [address] [id number] Care Team Providers Care Wheat Washer Name Role Phone UNKNOWN ANALY PRIMARY CARE Primary Care Physician Encounter PARS_FIN [id number] Date(s): 04/06/24 - 04/08/24 [facility] [address] [phone]- Encounter Diagnosis Acute exacerbation of CHF (congestive heart failure)(Discharge Diagnosis) - 04/06/24 Non-ischemic cardiomyopathy(Discharge Diagnosis) - 04/08/24 Discharge Disposition: 01 DISCHARGED HOME/SELF CARE Attending Physician: VENUS KING MD Admitting Physician: VENUS KING MD Referring Physician: FELIX BECKFORD SCREED PERSON Allergies, Adverse Reactions, Alerts No Known Allergies Assessment and Plan Extracted from: Title:Discharge Note Author:ADELSO CUELLAR MD Date :04/08/24 Acute exacerbation of CHF (congestive heart failure) (Heart failure, unspecified, I50.9) Non-ischemic cardiomyopathy (Other cardiomyopathies, I42.8) Orders: traZODone, 200 mg, Tab, Oral, Daily at Bedtime, Routine, First Dose: 04/08/24 22:00:00 EDT, 04/08/24 9:57:00 EDT PDMP Review: Not Reviewed -Entresto 24-26mg BID was started -spironolactone 25 mg OD was started -Farxiga 10 mg OD was started -Cefdinir 300 mg BID to complete total of 7 days for PNA -Metoprolol dose reduced to 25 Mg once daily -Lasix dose increased to 40 mg twice daily No Known Allergies Discharge Patient - Ordered?-- 04/08/24 13:57:00 EDT, to Home/Self Care As tolerated Follow up with PCP and??physician credentialing specialist in [facility] ?? Stable Home N/A Addendum by EILEEN DAVIES MD on April 08, 2024 15:49:55 EDT Patient was personally seen and examined on 04/08/24. I reviewed the medications. I agree with resident note, assessment and plan. Extracted from: Title:Clinical Summary Author:Karlene Mccauley Rn Date:04/08/24 [facility] n [address] [place],??[place]??[id number] Clinical Discharge Summary PATIENT INFORMATION Name: YUNIOR DUNN : 1960 [employer] Admitting Physician: VENUS KING MD Attending Physician: VENUS KING MD PCP: FELIX BECKFORD SCREED PERSON Discharge Diagnosis: Acute exacerbation of CHF (congestive heart failure); Non-ischemic cardiomyopathy PATIENT EDUCATION INFORMATION Instructions: Discharge Instructions Medicine (RPANDIT) (CUSTOM) Medication Leaflets cefdinir, spironolactone, Farxiga Follow-up With: Address: When: UNKNOWN ANALY SCREED PERSON Within 5 to 7 days Comments: Patients PCP is in [facility] Future Appointments ?No Future Appointments Scheduled MEDICATION LIST Active Medication Orders Prior to Transfer: Order Name Order Details albuterol-ipratropium Soln-Inh; 3 mL 3 mL, NEB, -1, 04/07/24 12:00:00 EDT, UD, 1, PARS UBC 9EST , PARS Topical/Inhalers, 3.32, 0.62 albuterol-ipratropium Soln-Inh; 3 mL 3 mL, NEB, -1, 04/09/24 8:00:00 EDT, UD, 1, PARS UBC 9EST , PARS Topical/Inhalers, 3.32, 0.62 albuterol-ipratropium Soln-Inh; 3 mL 3 mL, NEB, -1, 04/08/24 16:00:00 EDT, UD, 1, PARS UBC 9EST , PARS Topical/Inhalers, 3.32, 0.62 albuterol-ipratropium Soln-Inh; 3 mL 3 mL, NEB, -1, RTQID, STAT, 04/06/24 8:06:00 EDT, 04/06/24 8:06:00 EDT, UD, 1, PARS UBC 9EST , PARS Topical/Inhalers, 3.32, 0.62 albuterol-ipratropium Soln-Inh; 3 mL 3 mL, NEB, -1, 04/09/24 12:00:00 EDT, UD, 1, PARS UBC 9EST , PARS Topical/Inhalers, 3.32, 0.62 albuterol-ipratropium Soln-Inh; 3 mL 3 mL, NEB, -1, 04/09/24 16:00:00 EDT, UD, 1, PARS UBC 9EST , PARS Topical/Inhalers, 3.32, 0.62 albuterol-ipratropium Soln-Inh; 3 mL 3 mL, NEB, -1, 04/08/24 20:00:00 EDT, UD, 1, PARS UBC 9EST , PARS Topical/Inhalers, 3.32, 0.62 amiodarone 200 mg 1 tab(s), Oral, Daily, 30 tab(s), 0, 04/06/24 4:58:00 EDT, Maintenance, Tab amiodarone 200 mg Tab 200 mg 1 tab(s), Oral, -1, 04/09/24 10:00:00 EDT, UD, 1, -1, PARS UBC ED , PARS Oral Drugs, 5.40, 1.00, 04/06/24 5:42:00 EDT amiodarone 200 mg Tab 200 mg 1 tab(s), Oral, -1, Daily, Routine, 04/06/24 10:00:00 EDT, 04/06/24 10:00:00 EDT, UD, 1, -1, PARS UBC ED , PARS Oral Drugs, 5.40, 1.00, 04/06/24 5:42:00 EDT apixaban mg tab(s), Oral, Daily, 0, 04/06/24 4:58:00 EDT, Maintenance apixaban 5 mg Tab 5 mg 1 tab(s), Oral, -1, 04/09/24 10:00:00 EDT, UD, 1, -1, PARS UBC ED , PARS Oral Drugs, 0.04 apixaban 5 mg Tab 5 mg 1 tab(s), Oral, -1, Daily, Routine, 04/06/24 10:00:00 EDT, 04/06/24 10:00:00 EDT, UD, 1, -1, [facility] ED , [facility] Oral Drugs, 0.04 atorvastatin 80 mg 1 tab(s), Oral, Daily, 30 tab(s), 0, 04/06/24 4:57:00 EDT, Maintenance, Tab atorvastatin 80 mg Tab 80 mg 1 tab(s), Oral, -1, 04/08/24 22:00:00 EDT, UD, 1, -1, [facility] ED , [facility] Oral Drugs, 10.49, 1.94, 04/06/24 5:42:00 EDT atorvastatin 80 mg Tab 80 mg 1 tab(s), Oral, -1, Daily, Routine, 04/06/24 22:00:00 EDT, 04/06/24 22:00:00 EDT, UD, 1, -1, [facility] ED , [facility] Oral Drugs, 10.49, 1.94, 04/06/24 5:42:00 EDT cefTRIAXone 1,000 mg Injection 1,000 mg, IV Push, -1, [id number], Routine, 04/06/24 8:00:00 EDT, 5 day(s), Physician Stop, 04/06/24 8:00:00 EDT, 04/10/24 8:00:00 EDT, INJ, 1, -1, [facility] 9EST , PARS Injectables, 248.12, 45.95 cefTRIAXone 1,000 mg Injection 1,000 mg, IV Push, -1, 04/09/24 8:00:00 EDT, 04/09/24 8:00:00 EDT, INJ, 1, -1, [facility] 9EST , [facility] Injectables, 248.12, 45.95 cefdinir 300 mg 1 cap(s), Oral, q12H, 5 day(s), 10 cap(s), 0, 0, 04/08/24 12:01:00 EDT, Acute, 04/13/24 12:01:00 EDT, Route to Pharmacy Electronically, [facility]/pharmacy #[id number], Cap, 1 cap(s) Oral q12H,x5 day(s), 158, cm, 04/06/24 7:37:00 EDT, Patient Height, 93.3,... dapagliflozin 10 mg 1 tab(s), Oral, Daily, 30 tab(s), 0, 0, 04/08/24 11:59:00 EDT, Maintenance, Route to Pharmacy Electronically, [facility]/pharmacy #[id number], Tab, 1 tab(s) Oral Daily,x30 day(s), 158, cm, 04/06/24 7:37:00 EDT, Patient Height, 93.3, kg, 04/08/24 4:02:00 EDT,... dapagliflozin 10 mg Tab 10 mg 1 tab(s), Oral, -1, 04/09/24 10:00:00 EDT, UD, 1, -1, PARS UBC 9EST , PARS Oral Drugs, 115.09, 21.31, 04/06/24 11:24:00 EDT dapagliflozin 10 mg Tab 10 mg 1 tab(s), Oral, -1, Daily, Routine, 04/07/24 10:00:00 EDT, 04/07/24 10:00:00 EDT, UD, 1, -1, PARS UBC 9EST , PARS Oral Drugs, 115.09, 21.31, 04/06/24 11:24:00 EDT furosemide 40 mg 1 tab(s), Oral, BID, 28 tab(s), 0, 0, 04/08/24 11:57:00 EDT, Maintenance, Route to Pharmacy Electronically, [facility]/pharmacy #[id number], Tab, 1 tab(s) Oral BID,x14 day(s), 158, cm, 04/06/24 7:37:00 EDT, Patient Height, 93.3, kg, 04/08/24 4:02:00 EDT, Pat... furosemide 40 mg Tab 40 mg 1 tab(s), Oral, -1, 04/09/24 8:00:00 EDT, UD, 1, -1, PARS UBC 9EST , PARS Oral Drugs, 0.91, 0.17, 04/07/24 12:13:00 EDT furosemide 40 mg Tab 40 mg 1 tab(s), Oral, -1, BID, Routine, 04/07/24 16:00:00 EDT, 04/07/24 16:00:00 EDT, UD, 1, -1, PARS UBC 9EST , PARS Oral Drugs, 0.91, 0.17, 04/07/24 12:13:00 EDT furosemide 40 mg Tab 40 mg 1 tab(s), Oral, -1, 04/08/24 16:00:00 EDT, UD, 1, -1, PARS UBC 9EST , PARS Oral Drugs, 0.91, 0.17, 04/07/24 12:13:00 EDT furosemide 40 mg Tab 40 mg 1 tab(s), Oral, -1, 04/09/24 16:00:00 EDT, UD, 1, -1, PARS UBC 9EST , PARS Oral Drugs, 0.91, 0.17, 04/07/24 12:13:00 EDT metoprolol 25 mg 1 tab(s), Oral, Daily, 30 tab(s), 0, 0, 04/08/24 11:58:00 EDT, Maintenance, Route to Pharmacy Electronically, [facility]/pharmacy #[id number], Tab-ER, 1 tab(s) Oral Daily,x30 day(s), 158, cm, 04/06/24 7:37:00 EDT, Patient Height, 93.3, kg, 04/08/24 4:02:00 E... metoprolol succinate 25 mg Tab-ER 25 mg 1 tab(s), Oral, -1, 04/09/24 10:00:00 EDT, UD, 1, -1, PARS UBC 9EST , PARS Oral Drugs, 6.69, 1.24, 04/06/24 11:25:00 EDT metoprolol succinate 25 mg Tab-ER 25 mg 1 tab(s), Oral, -1, Daily, Routine, 04/07/24 10:00:00 EDT, 04/07/24 10:00:00 EDT, UD, 1, -1, PARS UBC 9EST , PARS Oral Drugs, 6.69, 1.24, 04/06/24 11:25:00 EDT sacubitril-valsartan 1 tab(s), Oral, BID, 60 tab(s), 0, 0, 04/08/24 11:59:00 EDT, Maintenance, Route to Pharmacy Electronically, [facility]/pharmacy #[id number], Constant Indicator, Tab, 1 tab(s) Oral BID,x30 day(s), 158, cm, 04/06/24 7:37:00 EDT, Patient Height, 93.3, kg, 04/08/24 4:... sacubitril-valsartan 24mg-26mg Tab 1 tab(s), Oral, -1, 04/09/24 10:00:00 EDT, UD, 1, 0, PARS UBC 9EST , PARS Oral Drugs, 37.5695, 6.9573 sacubitril-valsartan 24mg-26mg Tab 1 tab(s), Oral, -1, BID, Routine, 04/06/24 22:00:00 EDT, 04/06/24 22:00:00 EDT, UD, 1, 0, PARS UBC 9EST, PARS Oral Drugs, 37.5695, 6.9573 sacubitril-valsartan 24mg-26mg Tab 1 tab(s), Oral, -1, 04/08/24 22:00:00 EDT, UD, 1, 0, PARS UBC 9EST , PARS Oral Drugs, 37.5695, 6.9573 spironolactone 25 mg 1 tab(s), Oral, Daily, 30 tab(s), 0, 0, 04/08/24 11:59:00 EDT, Maintenance, Route to Pharmacy Electronically, [facility]/pharmacy #[id number], Tab, 1 tab(s) Oral Daily,x30 day(s), 158, cm, 04/06/24 7:37:00 EDT, Patient Height, 93.3, kg, 04/08/24 4:02:00 EDT,... spironolactone 25 mg Tab 25 mg 1 tab(s), Oral, -1, Daily, Routine, 04/07/24 8:00:00 EDT, 04/07/24 8:00:00 EDT, UD, 1, -1, PARS UBC 9EST, PARS Oral Drugs, 5.4, 1, 04/06/24 11:24:00 EDT spironolactone 25 mg Tab 25 mg 1 tab(s), Oral, -1, 04/09/24 8:00:00 EDT, UD, 1, -1, PARS UBC 9EST , PARS Oral Drugs, 5.4, 1, 04/06/24 11:24:00 EDT traZODone 200 mg 2 tab(s), Oral, Daily, 0, 04/06/24 4:56:00 EDT, Maintenance traZODone 100 mg Tab 200 mg 2 tab(s), Oral, -1, Daily at Bedtime, Routine, 04/08/24 22:00:00 EDT, 04/08/24 22:00:00 EDT, UD, 1, PARS UBC 9EST , PARS Oral Drugs, 10.80, 2.00, 04/08/24 9:57:00 EDT traZODone 100 mg Tab 200 mg 2 tab(s), Oral, -1, 04/08/24 22:00:00 EDT, UD, 1, PARS UBC 9EST , PARS Oral Drugs, 10.80, 2.00, 04/08/24 9:57:00 EDT Patient? s Active Home Medication List Discharge: [facility]/pharmacy #[id number], [address], [place] [id number], [phone] cefdinir (cefdinir 300 mg oral capsule) 1 capsule(s) Oral every 12 hours for 5 Days. Refills: 0. dapagliflozin (Farxiga 10 mg oral tablet) 1 Tab(s) Oral every day for 30 Days. Refills: 0. furosemide (furosemide 40 mg oral tablet) 1 Tab(s) Oral twice a day for 14 Days. Refills: 0. metoprolol (metoprolol succinate 25 mg oral tablet, extended release) 1 Tab(s) Oral every day for 30 Days. Refills: 0. sacubitril-valsartan (Entresto 24 mg-26 mg oral tablet) 1 Tab(s) Oral twice a day for 30 Days. Refills: 0. spironolactone (spironolactone 25 mg oral tablet) 1 Tab(s) Oral every day for 30 Days. Refills: 0. Other Medications amiodarone (amiodarone 200 mg oral tablet) 1 Tab(s) Oral every day. apixaban (Eliquis 5 mg oral tablet) Oral every day. atorvastatin (atorvastatin 80 mg oral tablet) 1 Tab(s) Oral every day. traZODone (traZODone 100 mg oral tablet) 2 Tab(s) Oral every day. OrdersOrder Name Order Details Discharge Patient 04/08/24 13:57:00 EDT, to Home/Self Care Extracted from: Title:cardiology Author:KENNETH CULLEN MD Date: Acute exacerbation of CHF (c ongestive heart failure) (Heart failure, unspecified, I50.9) Orders: Coox Panel ABG POC No qualifying data available. Extracted from: Title:Admission H & P Author:NORMA HILLMAN MD Date :04/06/24 Acute exacerbation of CHF (c ongestive heart failure) (Heart failure, unspecified, I50.9) No qualifying data available. Patient is a 63 year old male with PMHx significant for paroxysmal Afib and cardiomyopathy and CHF (unknown EF)??presented to the ED after getting transferred from [facility] where he was admitted for??CHF exacerbation. At [facility], his CXR showed CHF with cardiomegaly with bibasilar pulmonary opacities and small bilateral pleural effusions. ?? AHRF 2/2 CHF exacerbation vs PNA (less likely) Hemoptysis: ? - Patient reports developing SOB??and cough with blood streaked sputum yesterday which prompted him??to go to the ER at [facility]. - He denies any chest pain, diaphoresis,??palpitations, syncope or lightheadedness at that time.?? - On presentation at [facility] he was maintaining??SpO2 of 70% on room air and was put on a BiPAP. ?? - He reports frequent admission to the hospital for CHF exacerbation in the past. - At [facility], his CXR showed CHF with cardiomegaly with bibasilar pulmonary opacities and small bilateral pleural effusions. - He was administered IV??Lasix 60 mg, IV Levaquin 750 mg, IV morphine 2mg/ ml, Solu-Medrol 125 mg, DuoNeb and Proventil at [facility]. - His infectious panel for Influenza, respiratory syncytial virus and COVID 19 was negative at the time. - However, his WBC count was elevated at??15.8, BNP was 369, troponin 32,??creatinine 1.5, eGFR 51 and??Lactate was 4.1. His ABGs showed pH of 7.25 and??pCO2 of 58. ? - CBC, CMP, Mg, Phosphorus, Lactic Acid, troponin, legionella and strep pneumo urine antigen and blood cultures were ordered. - Transthoracic Echo was ordered.?? - Holding [employer] metoprolol succinate. ?? Hypokalemia: ?? - In the ER, potassium was 3.5. - Repletion with oral KCl 40 mEq ?? Hx Paroxysmal Afib: ?? - Patient was placed on telemetry. - Continue [employer] Eliquis 5mg??and Amiodarone 200mg ?? Hx HLD: ?? - Continue [employer] Atorvastatin 80mg ?? Hx Insomia: ?? - Continue [employer] Trazodone 200mg ?? Diet: Carbohydrate controlled heart health diet. DVT Prophylaxis: Eliquis Code Status: Full Code Disposition: MedSur with remote tele ?? Patient seen and examined at bedside. All labs and imaging were reviewed by myself. Case discussed with attending physician. ? Diagnostic Tests Pending * Sputum Culture w/Gram Stain Panel 04/06/24 Functional Status 04/08/24 ADLs Independent Medications amiodarone 200 mg oral tablet = 1 tab(s), Oral, Daily, # 30 tab(s), 0 Refill(s) Start Date: 04/06/24 Status: Ordered atorvastatin 80 mg oral tablet = 1 tab(s), Oral, Daily, # 30 tab(s), 0 Refill(s) Start Date: 04/06/24 Status: Ordered cefdinir 300 mg oral capsule = 1 cap(s), Oral, q12H, X 5 day(s), # 10 cap(s), 0 Refill(s), Pharmacy: [facility]/pharmacy #[id number], 158, cm, 04/06/24 7:37:00 EDT, Patient Height, 93.3, kg, 04/08/24 4:02:00 EDT, Patient Weight (kg) Start Date: 04/08/24 Stop Date: 04/13/24 Status: Ordered Eliquis 5 mg oral tablet tab(s), Oral, Daily, 0 Refill(s) Start Date: 04/06/24 Status: Ordered Entresto 24 mg-26 mg oral tablet 1 tab(s), Oral, BID, # 60 tab(s), 0 Refill(s), Pharmacy: [facility]/pharmacy #[id number], 158, cm, 04/06/24 7:37:00 EDT, Patient Height, 93.3, kg, 04/08/24 4:02:00 EDT, Patient Weight (kg) Start Date: 04/08/24 Stop Date: 05/08/24 Status: Ordered Farxiga 10 mg oral tablet = 1 tab(s), Oral, Daily, # 30 tab(s), 0 Refill(s), Pharmacy: [facility]/pharmacy #[id number], 158, cm, 04/06/24 7:37:00 EDT, Patient Height, 93.3, kg, 04/08/24 4:02:00 EDT, Patient Weight (kg) Start Date: 04/08/24 Stop Date: 05/08/24 Status: Ordered furosemide 40 mg oral tablet = 1 tab(s), Oral, BID, # 28 tab(s), 0 Refill(s), Pharmacy: [facility]/pharmacy #[id number], 158, cm, 04/06/24 7:37:00 EDT, Patient Height, 93.3, kg, 04/08/24 4:02:00 EDT, Patient Weight (kg) Start Date: 04/08/24 Stop Date: 04/22/24 Status: Ordered metoprolol succinate 25 mg oral tablet, extended release = 1 tab(s), Oral, Daily, # 30 tab(s), 0 Refill(s), Pharmacy: [facility]/pharmacy #[id number], 158, cm, 04/06/24 7:37:00 EDT, Patient Height, 93.3, kg, 04/08/24 4:02:00 EDT, Patient Weight (kg) Start Date: 04/08/24 Stop Date: 05/08/24 Status: Ordered spironolactone 25 mg oral tablet = 1 tab(s), Oral, Daily, # 30 tab(s), 0 Refill(s), Pharmacy: [facility]/pharmacy #[id number], 158, cm, 04/06/24 7:37:00 EDT, Patient Height, 93.3, kg, 04/08/24 4:02:00 EDT, Patient Weight (kg) Start Date: 04/08/24 Stop Date: 05/08/24 Status: Ordered traZODone 100 mg oral tablet = 2 tab(s), Oral, Daily, 0 Refill(s) Start Date: 04/06/24 Status: Ordered Mental Status 04/08/24 Orientation Assessment Oriented x 4 Affect/Behavior Appropriate Hallucinations Present None Problem List Condition Confirmation Course Effective Dates Status H ealth Status Informant Non-ischemic cardiomyopathy Confirmed Active Procedures Procedure Date Related Diagnosis Body Site Status Perforated diverticulum of colon Completed Results Laboratory List Name Date .Glucose Bedside POC 04/08/24 .Differential Automated 04/08/24 Basic Metabolic Profile w/Total Calcium (BMP w/Total Calcium) 04/08/24 Complete Blood Count w/Diff Auto (CBC w/ Auto Diff) 04/08/24 Magnesium Serum 04/08/24 Phosphorus Serum 04/08/24 .Glucose Bedside POC 04/08/24 .Glucose Bedside POC 04/07/24 .Glucose Bedside POC 04/07/24 .Glucose Bedside POC 04/07/24 .Glucose Bedside POC 04/07/24 .Differential Automated 04/07/24 Basic Metabolic Profile w/Total Calcium (BMP w/Total Calcium) 04/07/24 Complete Blood Count w/Diff Auto (CBC w/ Auto Diff) 04/07/24 Magnesium Serum 04/07/24 Phosphorus Serum 04/07/24 TSH 04/07/24 .Lactic Acid Reflex 1 04/06/24 Basic Metabolic Profile w/Total Calcium (BMP w/Total Calcium) 04/06/24 Lactic Acid w/Reflex 04/06/24 .BG w/O2 Sat DM Art Panel POC 3 04/06/24 .Lactic Acid Reflex 1 04/06/24 Troponin I Quant 04/06/24 Legionella Antigen Urine Qual IA 04/06/24 S pneumoniae Antigen IA1 (Strep pneumoni ae Ag IA1) 04/06/24 Lactic Acid w/Reflex 04/06/24 Lipid Panel 04/06/24 Magnesium Serum 04/06/24 Phosphorus Serum 04/06/24 .Differential Automated 04/06/24 BNP 04/06/24 Complete Blood Count w/Diff Auto (CBC w/ Auto Diff) 04/06/24 Comprehensive Metabolic Profile (CMP) Prothrombin Time w/INR (PT w/INR) 04/06/2 4 Troponin I Quant 04/06/24 Most recent to oldest [Reference Range]: 1 2 3 4 5 6 HGB DM Arterial POC [12.0-18.0 g/dL] 13.9 g/dL (04/06/24 9:39 AM) RBC [4.70-6.10 x10^6/mcL] 4.74 x10^6/mcL (04/08/24 8:28 AM) 4.49 x10^6/mcL *LOW* (04/07/24 6:44 AM) 4.65 x10^6/mcL *LOW* (04/06/24 4:52 AM) PT [10.1-11.6 second(s)] 11.8 second(s) *HI* (04/06/24 4:52 AM) INR [0.92-1.07] 1.09 1 *HI* (04/06/24 4:52 AM) BUN [7-25 mg/dL] 24 mg/dL (04/08/24 8:28 AM) 27 mg/dL *HI* (04/07/24 6:44 AM) 25 mg/dL (04/06/24 4:45 PM) 22 mg/dL (04/06/24 4:52 AM) Cholesterol [0-199 mg/dL] 88 mg/dL 2 (04/06/24 5:46 AM) Arterial Puncture Charge Yes (04/06/24 9:37 AM) Albumin [3.5-5.7 g/dL] 3.9 g/dL (04/06/24 4:52 AM) Alkaline Phosphatase [34-104 unit/L] 53 unit/L (04/06/24 4:52 AM) ALT [7-52 unit/L] 25 unit/L (04/06/24 4:52 AM) Anion Gap [7.0-16.0 mmol/L] 14.5 mmol/L (04/08/24 8:28 AM) 14.6 mmol/L (04/07/24 6:44 AM) 12.7 mmol/L (04/06/24 4:45 PM) 16.5 mmol/L *HI* (04/06/24 4:52 AM) AST [13-39 unit/L] 15 unit/L (04/06/24 4:52 AM) Basophils# Auto [0.00-0.10 x10^3/mcL] 0.10 x10^3/mcL (04/08/24 8:28 AM) 0.10 x10^3/mcL (04/07/24 6:44 AM) 0.00 x10^3/mcL (04/06/24 4:52 AM) Basophils% Auto [0.0-2.0 %] 0.6 % (04/08/24 8:28 AM) 0.5 % (04/07/24 6:44 AM) 0.2 % (04/06/24 4:52 AM) Bili Total [0.3-1.0 mg/dL] 0.7 mg/dL (04/06/24 4:52 AM) BUN/Crea Ratio [5.0-28.6 mg/dL] 21.8 mg/dL (04/08/24 8:28 AM) 22.5 mg/dL (04/07/24 6:44 AM) 20.8 mg/dL (04/06/24 4:45 PM) 16.9 mg/dL (04/06/24 4:52 AM) Calcium [8.6-10.3 mg/dL] 8.9 mg/dL (04/08/24 8:28 AM) 9.0 mg/dL (04/07/24 6:44 AM) 8.9 mg/dL (04/06/24 4:45 PM) 8.8 mg/dL (04/06/24 4:52 AM) Creatinine [0.7-1.3 mg/dL] 1.1 mg/dL (04/08/24 8:28 AM) 1.2 mg/dL (04/07/24 6:44 AM) 1.2 mg/dL (04/06/24 4:45 PM) 1.3 mg/dL (04/06/24 4:52 AM) Eos# Auto [0.00-0.70 x10^3/mcL] 0.20 x10^3/mcL (04/08/24 8:28 AM) 0.10 x10^3/mcL (04/07/24 6:44 AM) 0.00 x10^3/mcL (04/06/24 4:52 AM) Eosinophils% Auto [0.0-10.0 %] 2.4 % (04/08/24 8:28 AM) 0.4 % (04/07/24 6:44 AM) 0.0 % (04/06/24 4:52 AM) Globulin [2.4-3.5 g/dL] 2.7 g/dL (04/06/24 4:52 AM) HCT [43.5-53.7 %] 41.6 % *LOW* (04/08/24 8:28 AM) 40.0 % *LOW* (04/07/24 6:44 AM) 41.0 % *LOW* (04/06/24 4:52 AM) Hgb [14.1-18.1 g/dL] 14.2 g/dL (04/08/24 8:28 AM) 13.4 g/dL *LOW* (04/07/24 6:44 AM) 13.9 g/dL *LOW* (04/06/24 4:52 AM) Potassium [3.8-5.1 mmol/L] 3.5 mmol/L *LOW* (04/08/24 8:28 AM) 3.6 mmol/L *LOW* (04/07/24 6:44 AM) 3.7 mmol/L *LOW* (04/06/24 4:45 PM) 3.5 mmol/L *LOW* (04/06/24 4:52 AM) Lymphocytes# Auto [1.00-3.00 x10^3/mcL] 1.80 x10^3/mcL (04/08/24 8:28 AM) 1.80 x10^3/mcL (04/07/24 6:44 AM) 0.30 x10^3/mcL *LOW* (04/06/24 4:52 AM) Lymphocytes% Auto [15.0-45.0 %] 20.3 % (04/08/24 8:28 AM) 11.9 % *LOW* (04/07/24 6:44 AM) 2.7 % *LOW* (04/06/24 4:52 AM) MCH [26.0-34.0 pg] 30.0 pg (04/08/24 8:28 AM) 29.8 pg (04/07/24 6:44 AM) 30.0 pg (04/06/24 4:52 AM) MCHC [32.0-36.0 g/dL] 34.2 g/dL (04/08/24 8:28 AM) 33.5 g/dL (04/07/24 6:44 AM) 34.0 g/dL (04/06/24 4:52 AM) MCV [80-98 fL] 88 fL (04/08/24 8:28 AM) 89 fL (04/07/24 6:44 AM) 88 fL (04/06/24 4:52 AM) Monocytes# Auto [0.00-1.00 x10^3/mcL] 0.50 x10^3/mcL (04/08/24 8:28 AM) 1.10 x10^3/mcL *HI* (04/07/24 6:44 AM) 0.10 x10^3/mcL (04/06/24 4:52 AM) Monocytes% Auto [0.0-13.0 %] 5.8 % (04/08/24 8:28 AM) 7.2 % (04/07/24 6:44 AM) 0.8 % (04/06/24 4:52 AM) Neutrophils# Auto [1.40-6.50 x10^3/mcL] 6.20 x10^3/mcL (04/08/24 8:28 AM) 12.40 x10^3/mcL *HI* (04/07/24 6:44 AM) 11.30 x10^3/mcL *HI* (04/06/24 4:52 AM) Neutrophils% Auto [45.0-80.0 %] 70.9 % (04/08/24 8:28 AM) 80.0 % (04/07/24 6:44 AM) 96.3 % *HI* (04/06/24 4:52 AM) Plt Cnt [142-424 x10^3/mcL] 205 x10^3/mcL (04/08/24 8:28 AM) 222 x10^3/mcL (04/07/24 6:44 AM) 202 x10^3/mcL (04/06/24 4:52 AM) Prot Total [6.4-8.9 g/dL] 6.6 g/dL (04/06/24 4:52 AM) RDW [11.5-15.5 %] 14.5 % (04/08/24 8:28 AM) 14.4 % (04/07/24 6:44 AM) 14.3 % (04/06/24 4:52 AM) WBC [4.80-10.80 x10^3/mcL] 8.80 x10^3/mcL (04/08/24 8:28 AM) 15.50 x10^3/mcL *HI* (04/07/24 6:44 AM) 11.70 x10^3/mcL *HI* (04/06/24 4:52 AM) Sodium [136-145 mmol/L] 140 mmol/L (04/08/24 8:28 AM) 143 mmol/L (04/07/24 6:44 AM) 138 mmol/L (04/06/24 4:45 PM) 138 mmol/L (04/06/24 4:52 AM) Albumin/Globulin Ratio [1.1-2.2 g/dL] 1.4 g/dL (04/06/24 4:52 AM) Ca Corrected [8.8-10.2 mg/dL] 8.9 mg/dL (04/06/24 4:52 AM) Glucose [65-110 mg/dL] 143 mg/dL *HI* (04/08/24 8:28 AM) 124 mg/dL *HI* (04/07/24 6:44 AM) 176 mg/dL *HI* (04/06/24 4:45 PM) 197 mg/dL *HI* (04/06/24 4:52 AM) MPV [7.3-11.9 fL] 10.7 fL (04/08/24 8:28 AM) 10.2 fL (04/07/24 6:44 AM) 10.1 fL (04/06/24 4:52 AM) Chloride [98-107 mmol/L] 103 mmol/L (04/08/24 8:28 AM) 104 mmol/L (04/07/24 6:44 AM) 103 mmol/L (04/06/24 4:45 PM) 102 mmol/L (04/06/24 4:52 AM) Leonidas's Test Positive (04/06/24 9:37 AM) B Type Natriuretic Peptide [0.0-100.0 pg/mL] 496.0 pg/mL *HI* (04/06/24 4:52 AM) LDL Calculation [0-129 mg/dL] 35 mg/dL 3 (04/06/24 5:46 AM) Lipoprotein HDL [40-60 mg/dL] 37 mg/dL 4 *LOW* (04/06/24 5:46 AM) Magnesium [1.9-2.7 mg/dL] 2.1 mg/dL (04/08/24 8:28 AM) 2.2 mg/dL (04/07/24 6:44 AM) 1.7 mg/dL *LOW* (04/06/24 5:46 AM) Phosphorus [2.5-5.0 mg/dL] 3.1 mg/dL (04/08/24 8:28 AM) 4.1 mg/dL (04/07/24 6:44 AM) 3.1 mg/dL (04/06/24 5:46 AM) Triglycerides [0-150 mg/dL] 81 mg/dL 5 (04/06/24 5:46 AM) TSH [0.45-5.33 mcIU/mL] 3.20 mcIU/mL (04/07/24 6:44 AM) Troponin I Qnt [0-19 pg/mL] 59 pg/mL 6, 7 *CRIT* (04/06/24 7:52 AM) 65 pg/mL 8, 9 *CRIT* (04/06/24 4:52 AM) Chol/HDL Ratio 2.4 10 *NA* (04/06/24 5:46 AM) Glu POC Bdside [65-110 mg/dL] 94 mg/dL (04/08/24 12:16 PM) 140 mg/dL *HI* (04/08/24 7:53 AM) 119 mg/dL *HI* (04/07/24 8:44 PM) 136 mg/dL *HI* (04/07/24 4:20 PM) 122 mg/dL *HI* (04/07/24 11:19 AM) 118 mg/dL *HI* (04/07/24 7:43 AM) Lactic Acid [0.5-2.2 mmol/L] 2.1 mmol/L (04/06/24 4:45 PM) 3.7 mmol/L 11 *CRIT* (04/06/24 1:30 PM) 3.0 mmol/L *HI* (04/06/24 8:53 AM) 3.3 mmol/L *HI* (04/06/24 5:46 AM) Legionella Ag Ur QL EIA [Negative] Negative 12 (04/06/24 6:25 AM) Site for ABG Draw r.radial (04/06/24 9:37 AM) Carbon Dioxide [21-31 mmol/L] 26 mmol/L (04/08/24 8:28 AM) 28 mmol/L (04/07/24 6:44 AM) 26 mmol/L (04/06/24 4:45 PM) 23 mmol/L (04/06/24 4:52 AM) S Pneum Ag EIA [Negative] Negative 13 (04/06/24 6:25 AM) HCT Art Calc [36-54 %] 41 % (04/06/24 9:39 AM) pO2 DM Art POC [70.0-100.0 mmHg] 102.9 mmHg *HI* (04/06/24 9:39 AM) pCO2 DM Art POC [35.0-45.0 mmHg] 30.0 mmHg *LOW* (04/06/24 9:39 AM) [id number] POC [22.0-26.0 mmol/L] 18.8 mmol/L *LOW* (04/06/24 9:39 AM) O2 Sat DMArtPOC [94.0-97.0 %] 98.2 % *HI* (04/06/24 9:39 AM) BE Calc Art POC [-2.0-2.0 mmol/L] -4.5 mmol/L *LOW* (04/06/24 9:39 AM) pH DM Art POC [7.350-7.450] 7.415 14 (04/06/24 9:39 AM) Carboxy Hgb DM Arterial POC [0.0-1.4 %] 0.5 % (04/06/24 9:39 AM) Methemoglobin DM Arterial POC [0.4-1.5 %] 0.2 % *LOW* (04/06/24 9:39 AM) Oxyhemoglobin DM Arterial POC [94.0-100.0 %] 97.5 % (04/06/24 9:39 AM) fHHB DM Art POC [0.0-5.0 %] 1.8 % (04/06/24 9:39 AM) pCO2 (Temperature Corrected) POC [35-45 mmHg] 30 mmHg *LOW* (04/06/24 9:39 AM) pO2 (Temperature corrected) POC [80-100 mmHg] 103 mmHg *HI* (04/06/24 9:39 AM) eGFR [>=90 mL/min/1.73m??] 74 mL/min/1.73m?? *LOW* (04/08/24 8:28 AM) 67 mL/min/1.7 3m?? *LOW* (04/07/24 6:44 AM) 67 mL/min/1.7 3m?? *LOW* (04/06/24 4:45 PM) 61 mL/min/1.7 3m?? *LOW* (04/06/24 4:52 AM) 1Interpretive Data: 2 to 3 therapeutic range standard dose 2.5 to 3.5 therapeutic range high dose 2Interpretive Data: Cholesterol Classification: Desirable < 200 MG/DL Borderline High 200-239 MG/DL High >= 240 MG/DL 3Interpretive Data: LDL Cholesterol Classification: Optimal < 100 MG/DL Near Optimal/Above Optimal 100-129 MG/DL Borderline High 130-159 MG/DL High 160-189 MG/DL Very High >= 190 MG/DL 4Interpretive Data: HDL Cholesterol Classification: Low < 40 MG/DL High >= 60 MG/DL 5Interpretive Data: Triglyceride Classification Normal <150 MG/DL Borderline High 150-199 MG/DL High 200-499 MG/DL Very High >= 500 MG/DL 6Result Comment: Prev high 7Interpretive Data: Detection of a rise and/or fall of cardiac biomarker values (Troponin I) with atleast one value above the 99th percentile upper reference limit of 14 pg/mL for females and 19 pg/mL for males is considered clinically significant. 8Result Comment: Critical Result I_TnIHS:65.0 Called to and read back by: ESTEE RAIN at: 04/06/2024 05:39:50 by:NADER 9Interpretive Data: Detection of a rise and/or fall of cardiac biomarker values (Troponin I) with atleast one value above the 99th percentile upper reference limit of 14 pg/mL for females and 19 pg/mL for males is considered clinically significant. 10Interpretive Data: Total Cholesterol/HDL risk factors: Risk Men Women 1/2 Average <3.4 <3.3 Average 3.5-5.0 3.4-4.5 2X Average 5.1-9.6 4.6-7.1 3X Average 9.7-23.0 7.2-11.0 11Result Comment: Critical Result S_LAC:3.7 Called to and read back by: SOY DAWN at: 04/06/2024 14:54:55 by:LEVY 12Interpretive Data: This test detects Legionella pneumophilia serogroup soluble antigen in human urine. 13Interpretive Data: Streptococcus pneumoniae vaccine may cause false positive results in urine with the Alere BinaxNow S. pneumoniae in the 48 hours following vaccination. 14Result Comment: Test performed by Respiratory Department Nicole HURD // [facility] Orders for Microbiology Reports Name Date Blood Culture 04/06/24 Blood Culture 04/06/24 Microbiology Reports TEST:Blood Culture STATUS:Order in Progress BODY SITE: SOURCE:Blood COLLECTED DATE/TIME:04/06/24 5:46 AM PRELIMINARY REPORT No growth at 48 hours. TEST:Blood Culture STATUS:Order in Progress BODY SITE: SOURCE:Blood COLLECTED DATE/TIME:04/06/24 5:46 AM PRELIMINARY REPORT No growth at 48 hours. Radiology Reports * Exam Date Time Procedure Performing Provider Status 04/06/24 11:11 AM NI Echo TTE 2D Compl ete w Color Doppler Unique Castro Disability Counselor; Auth (Verified) Notes: (NI Echo TTE 2D Complete w Color Doppler) Reason For Exam: Cardiomegaly REPORT Transthoracic Echocardiography Report (TTE) Demographics Patient Name MONA MOJICA Date of Study 04/06/2024 Study Location: 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 Technical Quality: Good visualization Indications:Cardiomegaly. Patient Status: Routine Height: 62 inches Weight: 232 pounds BSA: 2.04 m^2 BMI: 42.43 kg/m^2 BP: 114/65 mmHg Conclusions 2D Complete, Color Flow Doppler, and Spectral Doppler images were obtained. Summary Severely reduced LV systolic fxn Grade LV diastolic dysfxn, Wall motion abnlity c/w multivessel CAD Increased LA pressure Moderate severe Mitral regurgitation No previous for comparison Moderate Phtn Signature Valves Mitral Valve Peak E-Wave: 123.4 cm/s Peak A-Wave: 37.15 cm/s Mean Velocity: 70.56 cm/s E/A Ratio: 3.32 Mean Gradient: 2.7 mmHg Peak Gradient: 6.09 mmHg Deceleration Time: 229.2 msec MR Velocity: 444.94 cm/s Area (continuity): 1.79 cm^2 MR PISA Radius: 0.64 cm MR VTI: 134.43 cm Alias Velocity: 31.3 cm/s MR PISA area: 2.57 cm^2 LILIA PISA: 0.18 cm^2 MR flow rate: 80.44 ml/s MR volume:24.2 ml Tissue Doppler E' Septal Velocity: 5.33 cm/s E/E': 22 E' Lateral Velocity: 5.89 cm/s Aortic Valve Peak Velocity: 153.29 cm/s Mean Velocity: 112.53 cm/s Peak Gradient: 9.4 mmHg Mean Gradient: 5.61 mmHg Area (continuity): 2.14 cm^2 AV VTI: 30.52 cm Tricuspid Valve Estimated RVSP: 43.41 mmHg Estimated RAP: 8 mmHg TR Velocity: 296.34 cm/s TR Gradient: 35.13 mmHg Pulmonic Valve Estimated PASP: 43.13 mmHg LVOT Peak Velocity: 77.63 cm/s Mean Velocity: 61.33 cm/s Peak Gradient: 2.41 mmHg Mean Gradient: 1.6 mmHg LVOT Diameter: 2.26 cm LVOT VTI: 16.28 cm Structures Left Atrium LA Dimension: 4.99 cm LA Area: 26.11 cm^2 LA/Aorta: 1.75 LA Volume/Index: 90.21 ml /44m^2 Left Ventricle Diastolic Dimension: 7.17 cm Systolic Dimension: 5.86 cm Septum Diastolic: 0.91 cm PW Diastolic: 0.99 cm FS: 18.3 % LVOT Diameter: 2.26 cm Stroke Index (SI):NaN ml/m^2 Stroke Volume (SV):NaN ml Right Atrium RA Systolic Pressure: 8 mmHg Right Ventricle RV Systolic Pressure: 43.13 mmHg Aorta / Great Vessels Aorta Aortic Root: 2.85 cm Ascending Aorta: 2.99 cm LVOT Diameter: 2.26 cm Findings Mitral Valve Structurally normal mitral valve. Restricted posterior leaflet movement moderate severe fxnal MR Aortic Valve Structurally normal aortic valve. no , AI Tricuspid Valve Tricuspid valve is structurally normal. Moderate TR, PAS 45mmHg Pulmonic Valve The pulmonic valve was not well visualized . Left Atrium The left atrium is Moderately to severely dilated. Left Ventricle LVEF 25%, posterior lateral akinesis, c/w CAD Grade III LV diastolic dysfxn, increased LA pressure Right Atrium The right atrial size is normal and not enlarged. Right Ventricle Normal right ventricular size and function. Pericardium No evidence of any pericardial effusion. Aorta/Great Vessels The aorta is within normal limits. Signature Final Signed by: KENNETH CULLEN MD Signed (Electronic Signature): 04/06/2024 11:21 am EDT * Exam Date Time Procedure Performing Provider Status 04/06/24 5:13 AM XR Chest 1 V Portable [place] Rad Techno I; Auth (Verified) Notes: (XR Chest [address]) Reason For Exam: CHF (Congestive Heart Failure) URL REPORT EXAM: XR Chest, 1 View CLINICAL HISTORY: The patient is 63 years old and is Male; CHF (Congestive Heart Failure) TECHNIQUE: Frontal view of the chest. COMPARISON: No relevant prior studies available. FINDINGS: Lungs: See below. Pleural space: No pneumothorax. Heart: There is cardiomegaly and central pulmonary vascular congestion. Mediastinum: Within normal limits. Normal mediastinal contour. Bones/joints: Within normal limits. No acute fracture. IMPRESSION: Cardiomegaly and central pulmonary vascular congestion. Electronically signed by: Gulshan Wilson DO 04/06/2024 06:10 AM EDT RP Final Signed by: GULSHAN WILSON MD Signed (Electronic Signature): 04/06/2024 06:10 am EDT Vital Signs Most recent to oldest [Reference Range]: 1 2 Patient Height 158 cm (04/06/24 7:37 AM) 158 cm (04/06/24 7:37 AM) Patient Weight (kg) 93.3 kg (04/08/24 4:02 AM) [place] Body Weight Calculated 55.071 kg (04/06/24 7:37 AM) BSA Measured 0 m2 (04/08/24 4:02 AM) Body Mass Index Measured 37.93 kg/m2 (04/06/24 7:37 AM) 37.93 kg/m2 (04/06/24 7:37 AM) Blood Pressure [95-120/59-81 mmHg] 103/5 6mmHg (04/08/24 1:24 PM) Mean Arterial Pressure, Cuff 72 mmHg (04/08/24 1:24 PM) Peripheral Pulse Rate [60-100 bpm] 56 bp m *LOW* (04/08/24 1:24 PM) Heart Rate Monitored [60-100 bpm] 59 bpm *LOW* (04/08/24 8:28 AM) Respiratory Rate [10-21 br/min] 18 br/mi n (04/08/24 1:24 PM) Oxygen Flow Rate 1 L/min (04/08/24 8:28 AM) SpO2 93 % (04/08/24 1:24 PM) FIO2 40 % (04/06/24 4:58 AM) Social History Social History Type Response Smoking Status Tobacco use status 3 0 days prior to admission No tobacco use of any form;Never (less than 100 in lifetime) entered on: 04/06/24 Sex Hospital Discharge Instructions Patient Education 04/08/2024 12:01:50 Discharge Instructions Medicine (RPANDIT) (CUSTOM) DISCHARGE INSTRUCTIONS Discharge Information Admission Date: 04/06/2024 Discharge Date: 04/08/2024 Discharge Diagnosis: Heart failure exacerbation You were admitted to the hospital with shortness of breath. The cause of the shortness of breath was deemed to be an acute exacerbation of heart failure with reduced ejection fraction. While in the hospital, you were given diuretic therapy to get rid of the excess fluid in your body. You are now Clinically stable enough to be discharged. You have been started on new medications forheart failure i-e spironolactone, Entresto and Jardiance. You are advised to follow-up with physician credentialing specialist back in [place] to get the defibrillator placed. You are advised to ensure compliance with your medications. You are advised to ensure compliance with your outpatient follow-up visits. Youare advised to schedule outpatient follow-up with your PCP and physician credentialing specialist within 1 to 2 weeks of discharge. Discharge Plan: Take medications as prescribed. Follow up as per recommendations. Discharge medications: New medications added: Entresto, spironolactone, Farxiga, Cefdinir Metoprolol dose reduced to 25 Mg once daily Lasix dose increased to 40 mg twice daily New prescription sent to [facility] pharmacy in [facility] Follow Up Appointments: See attached Follow up Instructions: Follow up with Primary Care Provider within 5-7 days of discharge. Follow-up with physician credentialing specialist in 1 to 2 weeks after discharge. Activity: As tolerated Diet: Healthy Heart Diet Discharge Medications/Changes: As listed with discharge instructions In case of emergency, contact: Primary Care Provider When to call your doctor: Please call your primary care provider and/or go directly to the emergency room if you experience worsening of symptoms including chest pain, shortness of breath or any other symptoms which concern you. Follow Up Care 04/06/2024 04:23:22 With:UNKNOWN ANALY, SCREED PERSON Address: When:5 to 7 days Comments:Patients PCP is in [facility] Consult note * KENNETH CULLEN MD: PERFORM Event Display: Consultation Authored Date: [id number] Chief Complaint Transfer from [place] for CHF and sob; per report he had sob with 02 sat of 70% room air; + wheezing; went to [place] put on bipap and get improves; was given morphine, levaquin, solumedrol, duoneb; cxr shows cardiomegaly and CHF. History of Present Illness chf Review of Systems patient speaks very little tongan, and i little azerbaijani, he has severe nonischemic cardiomyopathy,patient states he has never had a heart attack, he has had heart catheterization, I do not have those records obviously, patient does not travel with his records. ??(I have instructed him to??carry his records with him in the future) debil beltran He states he was supposed to get an ICD in 2 weeks??I cannot discern whether he has been compliant with??diet excellent lifestyle however he does states has been taking medication. From his medication list it sounds as if he has paroxysmal atrial fibrillation,??hyperlipidemia. He states he was visiting his brother??in this area and is intending to go back up to [place]. 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 States he does not smoke. He does not use oxygen at home. He denies chest pain, he denies palpitations syncope presyncope.?? He reports that he was??experiencing increased fluid in his legs. Physical Exam Vitals & Measurements T:??97.6?F??(Temporal Artery)?? T:??Temporal??(Method)?? T:??96.9?F?? HR:??66??(Monitored)?? HR:??65?? HR:??Apical Heart Rate??(Method)?? RR:??24?? BP:??108/62?? BP:??114/65(BMDI)?? SpO2:??96%?? HT:??158??cm?? HT:??158??cm?? WT:??94.7??kg??(Dosing)?? WT:??94.7??kg??(Dosing)?? BMI:??37.93?? BMI:??37.93?? Obese??in no distress. Breathing comfortably on nasal cannula O2. No JVD. No carotid bruit Lungs diminished air movement with some??crackles in all lung bach. Cardiac exam??regular rate rhythm without audible murmur gallop. Abdomen obese soft nontender. Lower extremities +1 symmetric edema. ?? Chest x-ray marked cardiomegaly??with marked enlargement of pulmonary arteries, cephalization consistent with??pulmonary edema. ? Records from [facility]??are not on the floor??for review however??it is reported that his pCO2??was 58??with a pH of 7.25 at [facility] Assessment/Plan Acute exacerbation of CHF (congestive heart failure) (Heart failure, unspecified, I50.9) Orders: Coox Panel ABG POC No qualifying data available. Medicare Inpatient Attestation Nonischemic cardiomyopathy, with acute decompensation.?? Complicated by??hypoxia and hypercapnia. Repeat ABG shows improvement of both parameters. ?? Maximize pulmonary toileting as per??internal medicine as there is no manager balance service. ?? Update echocardiogram, suspect patient needs??optimal??guideline directed therapy for heart failurereduced ejection fraction, Acute diuresis.?? Note patient currently not on??a diuretic ?? Primary service to make records available??from [facility] ?? Paroxysmal A-fib, patient maintaining sinus rhythm,??continue metoprolol succinate, Eliquis ?? Hyperlipidemia, continue high-dose statin, note patient's??LDL cholesterol is at goal. Problem List/Past Medical History Ongoing No qualifying data Historical No qualifying data Procedure/Surgical History ???Perforated diverticulum of colon Medications Inpatient amiodarone, 200 mg= 1 tab(s), Oral, Daily apixaban, 5 mg= 1 tab(s), Oral, Daily atorvastatin, 80 mg= 1 tab(s), Oral, Daily cefTRIAXone, 1000 mg, IV Push, [id number] DuoNeb, 3 mL, NEB, RTQID traZODone, 200 mg= 2 tab(s), Oral, Daily Home amiodarone 200 mg oral tablet, 200 mg= 1 tab(s), Oral, Daily atorvastatin 80 mg oral tablet, 80 mg= 1 tab(s), Oral, Daily Eliquis 5 mg oral tablet, Oral, Daily furosemide 40 mg oral tablet, 40 mg= 1 tab(s), Oral, Daily metoprolol succinate 50 mg oral tablet, extended release, 50 mg= 1 tab(s), Oral, Daily traZODone 100 mg oral tablet, 200 mg= 2 tab(s), Oral, Daily Allergies No Known Allergies Social History Alcohol Past Home/Environment/Abuse Lives with Alone. Living situation: Home/Independent. Injuries/Abuse/Neglect in household: No. Abuse Concerns: No Signs or Symptoms. Neglect Concerns: No Signs or Symptoms. Marijuana Recreational Use Never smoker Nutrition/Health Regular diet Diet:. Psychosocial No Hospital Clergy to Visit:. Substance Abuse Never Tobacco No tobacco use of any form, Never (less than 100 in lifetime) Family History Heart disease: Father. Lab Results Test Name Test Result Date/Time Site for ABG Draw rremi 04/06/2024 09:37 EDT [facility] Test Positive 04/06/2024 09:37 EDT Arterial Puncture Charge Yes 04/06/2024 09:37 EDT WBC 11.70 x10^3/mcL 04/06/2024 04:52 EDT RBC 4.65 x10^6/mcL 04/06/2024 04:52 EDT Hgb 13.9 g/dL 04/06/2024 04:52 EDT HCT 41.0 % 04/06/2024 04:52 EDT MCH 30.0 pg 04/06/2024 04:52 EDT MCHC 34.0 g/dL 04/06/2024 04:52 EDT MCV 88 fL 04/06/2024 04:52 EDT Plt Cnt 202 x10^3/mcL 04/06/2024 04:52 EDT MPV 10.1 fL 04/06/2024 04:52 EDT RDW 14.3 % 04/06/2024 04:52 EDT Neutrophils% Auto 96.3 % 04/06/2024 04:52 EDT Lymphocytes% Auto 2.7 % 04/06/2024 04:52 EDT Monocytes% Auto 0.8 % 04/06/2024 04:52 EDT Basophils% Auto 0.2 % 04/06/2024 04:52 EDT Eosinophils% Auto 0.0 % 04/06/2024 04:52 EDT Neutrophils# Auto 11.30 x10^3/mcL 04/06/2024 04:52 EDT Lymphocytes# Auto 0.30 x10^3/mcL 04/06/2024 04:52 EDT Monocytes# Auto 0.10 x10^3/mcL 04/06/2024 04:52 EDT Basophils# Auto 0.00 x10^3/mcL 04/06/2024 04:52 EDT Eos# Auto 0.00 x10^3/mcL 04/06/2024 04:52 EDT PT 11.8 second(s) 04/06/2024 04:52 EDT INR 1.09 04/06/2024 04:52 EDT Comments: 2 to 3 therapeutic range standard dose 2.5 to 3.5 therapeutic range high dose Sodium 138 mmol/L 04/06/2024 04:52 EDT Potassium 3.5 mmol/L 04/06/2024 04:52 EDT Chloride 102 mmol/L 04/06/2024 04:52 EDT Carbon Dioxide 23 mmol/L 04/06/2024 04:52 EDT BUN 22 mg/dL 04/06/2024 04:52 EDT Creatinine 1.3 mg/dL 04/06/2024 04:52 EDT eGFR 61 mL/min/1.73m?? 04/06/2024 04:52 EDT Glucose 197 mg/dL 04/06/2024 04:52 EDT Calcium 8.8 mg/dL 04/06/2024 04:52 EDT Anion Gap 16.5 mmol/L 04/06/2024 04:52 EDT BUN/Crea Ratio 16.9 mg/dL 04/06/2024 04:52 EDT Albumin 3.9 g/dL 04/06/2024 04:52 EDT Alkaline Phosphatase 53 unit/L 04/06/2024 04:52 EDT ALT 25 unit/L 04/06/2024 04:52 EDT AST 15 unit/L 04/06/2024 04:52 EDT Bili Total 0.7 mg/dL 04/06/2024 04:52 EDT Cholesterol 88 mg/dL 04/06/2024 05:46 EDT Comments: Cholesterol Classification: Desirable ? < 200 ?? MG/DL Borderline High ? 200-239 MG/DL High ?>= 240 ??MG/DL Phosphorus 3.1 mg/dL 04/06/2024 05:46 EDT Prot Total 6.6 g/dL 04/06/2024 04:52 EDT Triglycerides 81 mg/dL 04/06/2024 05:46 EDT Comments: Triglyceride Classification Normal ?<150 ? MG/DL Borderline High ? 150-199 ??MG/DL High ?200-499 ??MG/DL Very High ? >= 500 ?? MG/DL Globulin 2.7 g/dL 04/06/2024 04:52 EDT Albumin/Globulin Ratio 1.4 g/dL 04/06/2024 04:52 EDT B Type Natriuretic Peptide 496.0 pg/mL 04/06/2024 04:52 EDT Magnesium 1.7 mg/dL 04/06/2024 05:46 EDT Lipoprotein HDL 37 mg/dL 04/06/2024 05:46 EDT Comments: HDL Cholesterol Classification: Low ?< ?? 40 MG/DL High ? >= ??60 MG/DL LDL Calculation 35 mg/dL 04/06/2024 05:46 EDT Comments: LDL Cholesterol Classification: Optimal ? < 100 ?MG/DL Near Optimal/Above Optimal ?100-129 ?MG/DL Borderline High ? 130-159 ?MG/DL High ?160-189 ?MG/DL Very High ? >= 190 ? MG/DL Chol/HDL Ratio 2.4 04/06/2024 05:46 EDT Comments: Total Cholesterol/HDL risk factors: Risk ?Men ? Women 1/2 Average ? <3.4 ?<3.3 Average ?3.5-5.0 ? 3.4-4.5 2X Average ? 5.1-9.6 ? 4.6-7.1 3X Average ? 9.7-23.0 ?7.2-11.0 Ca Corrected 8.9 mg/dL 04/06/2024 04:52 EDT Lactic Acid 3.0 mmol/L 04/06/2024 08:53 EDT Lactic Acid 3.3 mmol/L 04/06/2024 05:46 EDT Troponin I Qnt 59 pg/mL 04/06/2024 07:52 EDT Comments: Prev high, Detection of a rise and/or fall of cardiac biomarker values (Troponin I) with at least one value above the 99th percentile upper reference limit of 14 pg/mL for females and 19 pg/mL for males is considered clinically significant. Troponin I Qnt 65 pg/mL 04/06/2024 04:52 EDT Comments: Critical Result I_TnIHS:65.0 Called to and read back by: ESTEE RAIN ??at: 04/06/2024 05:39:50 by:TSPENC, Detection of a rise and/or fall of cardiac biomarker values (Troponin I) with at least one value above the 99th percentile upper reference limit of 14 pg/mL for females and 19 pg/mLfor males is considered clinically significant. Legionella Ag Ur QL EIA NEGA 04/06/2024 06:25 EDT Comments: This test detects Legionella pneumophilia serogroup soluble antigen in human urine. S Pneum Ag EIA NEGA 04/06/2024 06:25 EDT Comments: Streptococcus pneumoniae vaccine may cause false positive results in urine with the AlereBinaxNow S. pneumoniae in the 48 hours following vaccination. pH DM Art POC 7.415 04/06/2024 09:39 EDT Comments: Test performed by Respiratory Department Nicole ?? R.RADIAL // ??4LNC pCO2 DM Art POC 30.0 mmHg 04/06/2024 09:39 EDT pO2 DM Art POC 102.9 mmHg 04/06/2024 09:39 EDT O2 Sat DMArtPOC 98.2 % 04/06/2024 09:39 EDT BE Calc Art POC -4.5 mmol/L 04/06/2024 09:39 EDT [id number] POC 18.8 mmol/L 04/06/2024 09:39 EDT HGB DM Arterial POC 13.9 g/dL 04/06/2024 09:39 EDT HCT Art Calc 41 % 04/06/2024 09:39 EDT Methemoglobin DM Arterial POC 0.2 % 04/06/2024 09:39 EDT Oxyhemoglobin DM Arterial POC 97.5 % 04/06/2024 09:39 EDT Carboxy Hgb DM Arterial POC 0.5 % 04/06/2024 09:39 EDT fHHB DM Art POC 1.8 % 04/06/2024 09:39 EDT pCO2 (Temperature Corrected) POC 30 mmHg 04/06/2024 09:39 EDT pO2 (Temperature corrected) POC 103 mmHg 04/06/2024 09:39 EDT Electronically Signed on 04/06/2024 10:07 EDT KENNETH CULLEN MD Progress note * KENNETH CULLEN MD: PERFORM Event Display: Progress Note Authored Date: [id number] I am seeing patient for a nonischemic cardiomyopathy with acute??on chronic??heart failure. Patient now states he is breathing comfortably. Temperature Temporal Artery:??97 DegF??Low (04/08/24 08:28:00) Peripheral Pulse Rate: 62 bpm (04/08/24 09:00:00) Heart Rate Monitored:??59 bpm??Low (04/08/24 08:28:00) Respiratory Rate: 20 br/min (04/08/24 08:28:00) Systolic Blood Pressure: 116 mmHg (04/08/24 09:00:00) Diastolic Blood Pressure: 66 mmHg (04/08/24 09:00:00) Mean Arterial Pressure, Cuff: 73 mmHg (04/07/24 15:00:00) Cuff Location: Arm Upper Left (04/08/24 08:28:00) Blood Pressure Method: Auto Cuff (04/08/24 08:28:00) Oxygen Therapy: Nasal cannula (04/08/24 08:28:00) Oxygen Flow Rate: 1 L/min (04/08/24 08:28:00) ?Recorded?Input?Output?Balance 04/08?07:00-10:46?0?0?0 ?? 04/07?7a - 3p?4?1700?-1696 ?3p - 11p?300?500?-200 ?11p - 7a?0?550?-550 ?24hr total?304?[id number] ?? Telemetry sinus no significant ventricular ectopy Lungs clear to auscultation. Cardiac exam regular rate rhythm normotensive S1-S2. Lower extremity edema resolved. ?? Labs??(Last four charted values) WBC ?8.80?(APR 08)?H??15.50?(APR 07)?H??11.70?(APR 06) Hgb ?14.2?(APR 08)?L??13.4?(AUG 25)?L??13.9?(AUG 24) Hct ?L??41.6?(AUG 26)?L??40.0?(AUG 25)?L??41.0?(AUG 24) Plt ?205?(AUG 26)?222?(AUG 25)?202?(AUG 24) Na ?140?(AUG 26)?143?(AUG 25)?138?(AUG 24)?138?(AUG 24) K ?L??3.5?(AUG 26)?L??3.6?(AUG 25)?L??3.7?(AUG 24)?L??3.5?(AUG 24) CO2 ?26?(AUG 26)?28?(AUG 25)?26?(AUG 24)?23?(AUG 24) Cl ?103?(AUG 26)?104?(AUG 25)?103?(AUG 24)?102?(MAR 24) Cr ?1.1?(MAR 26)?1.2?(MAR 25)?1.2?(MAR 24)?1.3?(MAR 24) BUN ?24?(APR 08)?H??27?(MAR 25)?25?(APR 06)?22?(APR 06) Glucose Random ?H??143?(APR 08)?H??124?(APR 07)?H??176?(APR 06)?H??197?(APR 06) Mg ?2.1?(APR 08)?2.2?(MAR 25)?L??1.7?(APR 06) Phos ?3.1?(APR 08)?4.1?(MAR 25)?3.1?(APR 06) Ca ?8.9?(APR 08)?9.0?(MAR 25)?8.9?(APR 06)?8.8?(APR 06) PT ?H??11.8?(APR 06) INR ?H??1.09?(APR 06) Troponin ?C??59?(APR 06)?C??65?(APR 06) ?? Medications (12) Active Scheduled: (12) albuterol-ipratropium Soln-Inh; 3 mL ??3 mL, NEB, RTQID amiodarone 200 mg Tab ??200 mg 1 tab(s), Oral, Daily apixaban 5 mg Tab ??5 mg 1 tab(s), Oral, Daily atorvastatin 80 mg Tab ??80 mg 1 tab(s), Oral, Daily cefTRIAXone 1,000 mg Injection ??1,000 mg, IV Push, [id number] dapagliflozin 10 mg Tab ??10 mg 1 tab(s), Oral, Daily furosemide 40 mg Tab ??40 mg 1 tab(s), Oral, BID metoprolol succinate 25 mg Tab-ER ??25 mg 1 tab(s), Oral, Daily potassium chloride 20 mEq Tab-ER Diss ??40 mEq 2 tab(s), Oral, Once sacubitril-valsartan 24mg-26mg Tab ??1 tab(s), Oral, BID spironolactone 25 mg Tab ??25 mg 1 tab(s), Oral, Daily traZODone 100 mg Tab ??200 mg 2 tab(s), Oral, Daily at Bedtime Continuous: (0) PRN: (0) ?? Heart failure reduced ejection fraction, patient appears to be euvolemic at this time,??switch to oral diuretic,??continue??optimal guideline directed medical therapy. Okay to discharge from cardiac perspective. Records from [facility]??reviewed??patient will follow-up with his??primary physician credentialing specialist??this week Electronically Signed on 04/08/2024 10:48 EDT KENNETH CULLEN MD * KENNETH CULLEN MD: PERFORM Event Display: Progress Note Authored Date: [id number] I am seeing the patient for??severely reduced left ventricular systolic function,??decompensated heart failure. Patient??reports that he is breathing more comfortably today. Temperature Temporal Artery: 97.9 DegF (04/07/24 08:00:00) Peripheral Pulse Rate: 66 bpm (04/07/24 08:00:00) Respiratory Rate: 18 br/min (04/07/24 08:00:00) Systolic Blood Pressure: 102 mmHg (04/07/24 08:00:00) Diastolic Blood Pressure:??55 mmHg??Low (04/07/24 08:00:00) Mean Arterial Pressure, Cuff: 71 mmHg (04/07/24 08:00:00) Blood Pressure Method: Auto Cuff (04/07/24 08:00:00) Oxygen Therapy: Nasal cannula (04/07/24 08:00:00) Oxygen Flow Rate: 3 L/min (04/07/24 08:00:00) ?Recorded?Input?Output?Balance 04/07?07:00-10:20?4?500?-496 ?? 04/06?7a - 3p?54?1050?-996 ?3p - 11p?404?950?-546 ?11p - 7a?0?250?-250 ?24hr total?458?2250?-1792 ? Lungs??clear to auscultation. Cardiac exam distant regular rate rhythm. Lower extremity edema markedly improved Labs??(Last four charted values) WBC ?H??15.50?(MAR 25)?H??11.70?(MAR 24) Hgb ?L??13.4?(AUG 25)?L??13.9?(MAR 24) Hct ?L??40.0?(MAR 25)?L??41.0?(MAR 24) Plt ?222?(APR 07)?202?(APR 06) Na ?143?(APR 07)?138?(APR 06)?138?(APR 06) K ?L??3.6?(APR 07)?L??3.7?(APR 06)?L??3.5?(APR 06) CO2 ?28?(APR 07)?26?(APR 06)?23?(APR 06) Cl ?104?(MAR 25)?103?(MAR 24)?102?(APR 06) Cr ?1.2?(APR 07)?1.2?(MAR 24)?1.3?(MAR 24) BUN ?H??27?(APR 07)?25?(APR 06)?22?(APR 06)?22.5?() Glucose Random ?H??124?(APR 07)?H??176?(APR 06)?H??197?(APR 06) Mg ?2.2?(APR 07)?L??1.7?(APR 06) Phos ?4.1?(APR 07)?3.1?(APR 06) Ca ?9.0?(APR 07)?8.9?(APR 06)?8.8?(APR 06) PT ?H??11.8?(APR 06) INR ?H??1.09?(APR 06) Troponin ?C??59?(APR 06)?C??65?(APR 06) Medications (11) Active Scheduled: (11) albuterol-ipratropium Soln-Inh; 3 mL ??3 mL, NEB, RTQID amiodarone 200 mg Tab ??200 mg 1 tab(s), Oral, Daily apixaban 5 mg Tab ??5 mg 1 tab(s), Oral, Daily atorvastatin 80 mg Tab ??80 mg 1 tab(s), Oral, Daily cefTRIAXone 1,000 mg Injection ??1,000 mg, IV Push, [id number] dapagliflozin 10 mg Tab ??10 mg 1 tab(s), Oral, Daily furosemide 40 mg/4 mL Soln-Inj ??40 mg 4 mL, IV Push, BID metoprolol succinate 25 mg Tab-ER ??25 mg 1 tab(s), Oral, Daily sacubitril-valsartan 24mg-26mg Tab ??1 tab(s), Oral, BID spironolactone 25 mg Tab ??25 mg 1 tab(s), Oral, Daily traZODone 100 mg Tab ??200 mg 2 tab(s), Oral, Daily Continuous: (0) PRN: (0) ?? Acute on chronic LV??systolic dysfunction, volume status appears to be near euvolemia. Okay if??primary team wants to transfer to oral diuretic therapy. Patient would??appear to be??stable??from a cardiac perspective. I have asked the records clerk to get records from [facility]. Patient informs me that he will be leaving the hospital and going back to [facility]. If there are additional cardiac questions please reconsult [place] [facility] thank you Electronically Signed on 04/07/2024 10:21 EDT KENNETH CULLEN MD * [address] MD: SANTOS HUDSON MD: MODIFY, MODIFY SANTOS RIOS MD: MODIFY, SANTOS HUDSON MD: MODIFY, PERFORM SANTOS RIOS MD: PERFORM, MODIFY SANTOS RIOS MD: MODIFY Event Display: Progress Note Authored Date: [id number] Subjective Patient seen and examined at bed side with a seismic interpreter. He reports having a history of fluid accumulation in his lungs diagnosed 2 weeks ago by his PCP at [place]. He denies prior history of MIor stents placed. He started getting SOB since which got progressively worse on Monday where he had associated orthopnea. He denies any chest pain, palpitations, dizziness, syncope or PND.?? He reports taking daily Lasix 40mg oral and is compliant with his medications. 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 He also takes Eliquis BID daily but is not sure why he takes it. Per chart review hehas history of Afib. He reports feeling a little better in terms of SOB today. Currently on 4Lts NC. Repeat trop flat 65->59. Lactate trending down 3.3->3. Pending Cardiology evaluation and Echo.?? Review of Systems All systems reviewed and negative other than mentioned above Objective Vitals & Measurements T:??97.6?F??(Temporal Artery)?? T:??Temporal??(Method)?? T:??96.9?F?? HR:??66??(Monitored)?? HR:??65?? HR:??Apical Heart Rate??(Method)?? RR:??24?? BP:??108/62?? BP:??114/65(BMDI)?? SpO2:??96%?? HT:??158??cm?? HT:??158??cm?? WT:??94.7??kg??(Dosing)?? WT:??94.7??kg??(Dosing)?? BMI:??37.93?? BMI:??37.93?? Physical Exam General: Ill appearing, in mild distress HEENT: atraumatic, PERRLA, moist mucosa Neck: Trachea midline, no JVD Respiratory: normal chest wall expansion, bilateral air entry +, bilateral basal crackles+, no wheeze Cardiovascular: RRR, no m/r/g, Normal S1 and S2 Abdomen: Soft, non-tender, non-distended, normal bowel sounds in all quadrants Musculoskeletal: normal ROM in upper and lower extremities, no edema Integumentary: warm, dry, and pink, with no rash, purpura, or petechia Neurological: AAO X 3, no focal deficits noted Psychiatric: cooperative with normal mood, affect, and cognition Lab Results All Labs [Within the Last 24 Hours] Site for ABG Draw: r.radial (04/06/24 09:37:00) Leonidas's Test: Positive (04/06/24 09:37:00) Arterial Puncture Charge: Yes (04/06/24 09:37:00) WBC:??11.7 x10^3/mcL??High (04/06/24 04:52:00) RBC:??4.65 x10^6/mcL??Low (04/06/24 04:52:00) Hgb:??13.9 g/dL??Low (04/06/24 04:52:00) HCT:??41 %??Low (04/06/24 04:52:00) MCH: 30 pg (04/06/24 04:52:00) MCHC: 34 g/dL (04/06/24 04:52:00) MCV: 88 fL (04/06/24 04:52:00) Plt Cnt: 202 x10^3/mcL (04/06/24 04:52:00) MPV: 10.1 fL (04/06/24 04:52:00) RDW: 14.3 % (04/06/24 04:52:00) Neutrophils% Auto:??96.3 %??High (04/06/24 04:52:00) Lymphocytes% Auto:??2.7 %??Low (04/06/24 04:52:00) Monocytes% Auto: 0.8 % (04/06/24 04:52:00) Basophils% Auto: 0.2 % (04/06/24 04:52:00) Eosinophils% Auto: 0 % (04/06/24 04:52:00) Neutrophils# Auto:??11.3 x10^3/mcL??High (04/06/24 04:52:00) Lymphocytes# Auto:??0.3 x10^3/mcL??Low (04/06/24 04:52:00) Monocytes# Auto: 0.1 x10^3/mcL (04/06/24 04:52:00) Basophils# Auto: 0 x10^3/mcL (04/06/24 04:52:00) Eos# Auto: 0 x10^3/mcL (04/06/24 04:52:00) PT:??11.8 second(s)??High (04/06/24 04:52:00) INR:??1.09??High (04/06/24 04:52:00) Sodium: 138 mmol/L (04/06/24 04:52:00) Potassium:??3.5 mmol/L??Low (04/06/24 04:52:00) Chloride: 102 mmol/L (04/06/24 04:52:00) Carbon Dioxide: 23 mmol/L (04/06/24 04:52:00) BUN: 22 mg/dL (04/06/24 04:52:00) Creatinine: 1.3 mg/dL (04/06/24 04:52:00) eGFR:??61 mL/min/1.73m?Low (04/06/24 04:52:00) Glucose:??197 mg/dL??High (04/06/24 04:52:00) Calcium: 8.8 mg/dL (04/06/24 04:52:00) Anion Gap:??16.5 mmol/L??High (04/06/24 04:52:00) BUN/Crea Ratio: 16.9 mg/dL (04/06/24 04:52:00) Albumin: 3.9 g/dL (04/06/24 04:52:00) Alkaline Phosphatase: 53 unit/L (04/06/24 04:52:00) ALT: 25 unit/L (04/06/24 04:52:00) AST: 15 unit/L (04/06/24 04:52:00) Bili Total: 0.7 mg/dL (04/06/24 04:52:00) Cholesterol: 88 mg/dL (04/06/24 05:46:00) Phosphorus: 3.1 mg/dL (04/06/24 05:46:00) Prot Total: 6.6 g/dL (04/06/24 04:52:00) Triglycerides: 81 mg/dL (04/06/24 05:46:00) Globulin: 2.7 g/dL (04/06/24 04:52:00) Albumin/Globulin Ratio: 1.4 g/dL (04/06/24 04:52:00) B Type Natriuretic Peptide:??496 pg/mL??High (04/06/24 04:52:00) Magnesium:??1.7 mg/dL??Low (04/06/24 05:46:00) Lipoprotein HDL:??37 mg/dL??Low (04/06/24 05:46:00) LDL Calculation: 35 mg/dL (04/06/24 05:46:00) Chol/HDL Ratio: 2.4 (04/06/24 05:46:00) Ca Corrected: 8.9 mg/dL (04/06/24 04:52:00) Lactic Acid:??3 mmol/L??High (04/06/24 08:53:00) Troponin I Qnt:??59 pg/mL??Critical (04/06/24 07:52:00) Legionella Ag Ur QL EIA: NEGA (04/06/24 06:25:00) S Pneum Ag EIA: NEGA (04/06/24 06:25:00) pH DM Art POC: 7.415 (04/06/24 09:39:00) pCO2 DM Art POC:??30 mmHg??Low (04/06/24 09:39:00) pO2 DM Art POC:??102.9 mmHg??High (04/06/24 09:39:00) O2 Sat DMArtPOC:??98.2 %??High (04/06/24 09:39:00) BE Calc Art POC:??-4.5 mmol/L??Low (04/06/24 09:39:00) [id number] POC:??18.8 mmol/L??Low (04/06/24 09:39:00) HGB DM Arterial POC: 13.9 g/dL (04/06/24 09:39:00) HCT Art Ca % (04/06/24 09:39:00) Methemoglobin DM Arterial POC:??0.2 %??Low (04/06/24 09:39:00) Oxyhemoglobin DM Arterial POC: 97.5 % (04/06/24 09:39:00) Carboxy Hgb DM Arterial POC: 0.5 % (04/06/24 09:39:00) fHHB DM Art POC: 1.8 % (04/06/24 09:39:00) pCO2 (Temperature Corrected) POC:??30 mmHg??Low (04/06/24 09:39:00) pO2 (Temperature corrected) POC:??103 mmHg??High (04/06/24 09:39:00) Medications Inpatient amiodarone, 200 mg= 1 tab(s), Oral, Daily apixaban, 5 mg= 1 tab(s), Oral, Daily atorvastatin, 80 mg= 1 tab(s), Oral, Daily cefTRIAXone, 1000 mg, IV Push, [id number] DuoNeb, 3 mL, NEB, RTQID magnesium sulfate, 2 gm= 50 mL, IV Piggyback, Once traZODone, 200 mg= 2 tab(s), Oral, Daily Assessment/Plan Acute exacerbation of CHF (congestive heart failure) (Heart failure, unspecified, I50.9) Orders: cefTRIAXone, 1,000 mg, Injection, IV Push, [id number], Indication: Respiratory System Infection, Routine, Order Duration: 5 day(s), First Dose: 04/06/24 8:00:00 EDT, Stop Date: 04/10/24 8:00:00 EDT ipratropium-albuterol, 3 mL, Soln-Inh, NEB, RTQID, STAT, First Dose: 04/06/24 8:06:00 EDT magnesium sulfate, 2 gm 50 mL, Injection, IV Piggyback, Once, Routine, infuse over 2 hr, First Dose: 04/06/24 9:00:00 EDT, Stop Date: 04/06/24 9:00:00 EDT Patient is a 63 year old male with PMHx significant for paroxysmal Afib and cardiomyopathy and CHF (unknown EF)??presented to the ED after getting transferred from [facility] where he was admitted for possible??CHF exacerbation. At [facility], his CXR showed CHF with cardiomegaly with bibasilar pulmonary opacities and small bilateral pleural effusions. ?? AHRF 2/2 CHF exacerbation vs community acquired pneumonia HFrEF 25% Afib on Eliquis Blood streaked sputum -Patient reports developing SOB??and cough with blood streaked sputum yesterday which prompted him??to go to the ER at [facility]. He started having symptoms since which progressively worsening onFriday. Also had associated orthopnea, no PND -He denies any chest pain, diaphoresis,??palpitations, syncope or lightheadedness at that time.?? -On presentation at [facility] he was maintaining??SpO2 of 70% on room air and was put on a BiPAP.?Current -He reports admission for CHF exacerbation about 2 weeks ago and per him Cardiology scheduled him for defibrillator placement in 2 weeks, unsure why -At [facility], his CXR showed CHF with cardiomegaly with bibasilar pulmonary opacities and small bilateral pleural effusions, repeat CXR here showed cardiomegaly and pulmonary edema -He was administered IV??Lasix 60 mg, IV Levaquin 750 mg, IV morphine 2mg/ ml, Solu-Medrol 125 mg, DuoNeb and Proventil at [facility]. -His infectious panel for Influenza, respiratory syncytial virus and COVID 19 was negative at [facility]. Strep and Legionella negative. Pending sputum and blood cultures. -His WBC count was elevated at??15.8, BNP was 369, troponin 32,??creatinine 1.5, eGFR 51 and??Lactate was 4.1. His ABGs showed pH of 7.25 and??pCO2 of 58. -WBC this AM 11.7, Cr 1.3, Lactate 3.3->3, Trop 32->65->59. Follow repeat Lactate -Will start patient on IV Ceftriaxone for possible community acquired pneumonia given WBC count andcough -Cardiology consulted, appreciate recs. Advised to continue IV Lasix 40mg BID. -Echo showed severely reduced LV??EF 25%,??diastolic dysfunction, wall motion abnormalities consistent with multivessel CAD, increased LA pressure, moderate to severe MR, moderate??pulmonary HTN -Per??cardiology patient started on GDMT with Entresto, spironolactone, dapagliflozine with holdingparameters -Continue RHYTHMIC GYMNASTICS COACH Eliquis, Amiodarone,??Toprol resumed at reduced dose of 25mg once daily -Telemetry monitoring -Monitor electrolytes -Patient follows with PCP Dr.Ana Daigle at [place], [place]. Will attempt to get records from [facility]. ?? Hx HLD: - Continue RHYTHMIC GYMNASTICS COACH Atorvastatin 80mg ?? Hx Insomia: - Continue RHYTHMIC GYMNASTICS COACH Trazodone 200mg ?? Diet: Heart healthy diet DVT Prophylaxis: Eliquis Code Status: Full Code Disposition: MedSurg with remote tele ? I have personally seen and examined the patient??on?? 04/06/2024. I have??discussed the management with the resident. I have reviewed the resident's note and agree with the documented history, physical examination findings, assessment??and plan of care. Electronically Signed on 04/06/2024 13:32 EDT SANTOS RIOS MD Electronically Signed on 04/06/2024 13:35 EDT SANTOS RIOS MD Electronically Signed on 04/06/2024 13:36 EDT SANTOS RIOS MD Electronically Signed on 04/07/2024 12:[address] MD Modified by: SANTOS RIOS MD on 04/06/2024 10:23 EDT Modified by: SANTOS RIOS MD on 04/06/2024 13:32 EDT Modified by: SANTOS RIOS MD on 04/06/2024 13:35 EDT Modified by: SANTOS RIOS MD on 04/06/2024 13:36 EDT Modified by: JOSE LUIS LANE MD on 04/07/2024 12:42 EDT History and physical note * JOSE LUIS L[address] MD: MODIFY FLORENTIN SPAIN MD: MODIFY, FLORENTIN BOWEN MD: NORMA PILLAI MD: PERFORM Event Display: History and Physical Authored Date: Chief Complaint Transfer from [place] for CHF and sob; per report he had sob with 02 sat of 70% room air; + wheezing; went to [place] put on bipap and get improves; was given morphine, levaquin, solumedrol, duoneb; cxr shows cardiomegaly and CHF. History of Present Illness Patient is a 63 year old male with PMHx significant for paroxysmal Afib and CHF (unknown EF)??presented to the ED after getting transferred from [facility] wherehe [facility] admitted for??CHF exacerbation. Pt is azerbaijani speaking and speaks limited amount of Italian.Lab Aid services were unavailable. History obtained from speaking with pt, chart review and [facility] records. Patient reports that he is visiting from [facility]. He reports developing SOB??and cough with blood streaked sputum yesterday which prompted him??to go to the ER at [facility]. He denies any chest pain, diaphoresis,??palpitations, syncope or lightheadedness at that time.??On prese ntation at [facility] he was maintaining??SpO2 of 70% on room air and was put on a BiPAP. ??He reports frequent admission to the hospital for CHF exacerbation in the past. At [facility], his CXR showed CHF with cardiomegaly with bibasilar pulmonary opacities and small bilateral pleural effusions. He was administered IV?? Lasix 60 mg, IV Levaquin 750 mg, IV morphine 2mg/ ml, Solu-Medrol 125 mg, DuoNeb and Proventil at [facility]. His infectious panel for Influenza, respiratory syncytial virus and COVID 19 was negative at the time. However, his WBC count was elevated at??15.8, BNP was 369, troponin 32,??creatinine 1.5, eGFR 51 and??Lactate was 4.1. His ABGs showed pH of 7.25 and??pCO2 of 58. He denies any vision trouble,??headache, abdominal pain, nausea, vomiting, diarrhea,??melena, hematuria and burning micturition.? In the ER, his vitals were temperature of 96.9, B/P 106/54, pulse rate 65, RR of 23 and SpO2 of 97% on 4 L O2. EKG showed NSR. On his labs, his CBC showed Hgb of 13.9, WBC count of 11.9 and platelet count of 202. On his chemistry, his sodium was 138. potassium 3.5, creatinine 1.3, eGFR 61, glucose 197, anion gap 16.5, BNP of 496, troponin of 65. His CXR showed cardiomegaly and central pulmonary vascular congestion. ?? Review of Systems Constitutional: No fever, No chills, No sweats. Eye: No recent visual problem, No double vision. Respiratory:??Reports shortness of breath and??cough with blood streaked sputum. Cardiovascular: No chest pain, No palpitations, No peripheral edema, No syncope. Gastrointestinal: No nausea, No vomiting, No diarrhea, No constipation, No heartburn, No abdominal pain. Genitourinary: No dysuria, No hematuria. Musculoskeletal: No back pain, No neck pain, No joint pain. Integumentary: No rash, No pruritus, No abrasions. Neurologic: Alert and oriented x3, No headache, No confusion. Physical Exam Vitals & Measurements T:??Temporal??(Method)?? T:??96.9?F?? HR:??68??(Monitored)?? HR:??65?? HR:??Apical Heart Rate??(Method)?? RR:??23?? BP:??106/54?? BP:??116/58(BMDI)?? SpO2:??97%?? HT:??157.48??cm?? WT:??105.232??kg??(Dosing)?? General: well appearing, no acute distress Neck: Trachea midline. Respiratory: normal chest wall expansion,??mild crackles in bases bilaterally Cardiovascular: RRR, Normal S1 and S2 with no murmurs, gallops or rubs. Abdomen: Soft, non-tender, non-distended, normal bowel sounds. Integumentary: warm, dry, and pink, with no rash, purpura, or petechia Neurological: normal sensation to pressure and light touch Assessment/Plan Acute exacerbation of CHF (congestive heart failure) (Heart failure, unspecified, I50.9) No qualifying data available. Patient is a 63 year old male with PMHx significant for paroxysmal Afib and cardiomyopathy and CHF (unknown EF)??presented to the ED after getting transferred from [facility] where he was admitted for??CHF exacerbation. At [facility], his CXR showed CHF with cardiomegaly with bibasilar pulmonary opacities and small bilateral pleural effusions. ?? AHRF 2/2 CHF exacerbation vs PNA (less likely) Hemoptysis: - Patient reports developing SOB??and cough with blood streaked sputum yesterday which prompted him??to go to the ER at [facility]. - He denies any chest pain, diaphoresis,??palpitations, syncope or lightheadedness at that time.?? - On presentation at [facility] he was maintaining??SpO2 of 70% on room air and was put on a BiPAP. ?? - He reports frequent admission to the hospital for CHF exacerbation in the past. - At [facility], his CXR showed CHF with cardiomegaly with bibasilar pulmonary opacities and small bilateral pleural effusions. - He was administered IV??Lasix 60 mg, IV Levaquin 750 mg, IV morphine 2mg/ ml, Solu-Medrol 125 mg,DuoNeb and Proventil at [facility]. - His infectious panel for Influenza, respiratory syncytial virus and COVID 19 was negative at the time. - However, his WBC count was elevated at??15.8, BNP was 369, troponin 32,??creatinine 1.5, eGFR 51 and??Lactate was 4.1. His ABGs showed pH of 7.25 and??pCO2 of 58. - CBC, CMP, Mg, Phosphorus, Lactic Acid, troponin, legionella and strep pneumo urine antigen and blood cultures were ordered. - Transthoracic Echo was ordered.?? - Holding RHYTHMIC GYMNASTICS COACH metoprolol succinate. ?? Hypokalemia: - In the ER, potassium was 3.5. - Repletion with oral KCl 40 mEq ?? Hx Paroxysmal Afib: - Patient was placed on telemetry. - Continue RHYTHMIC GYMNASTICS COACH Eliquis 5mg??and Amiodarone 200mg ?? Hx HLD: - Continue RHYTHMIC GYMNASTICS COACH Atorvastatin 80mg ?? Hx Insomia: - Continue RHYTHMIC GYMNASTICS COACH Trazodone 200mg ?? Diet: Carbohydrate controlled heart health diet. DVT Prophylaxis: Eliquis Code Status: Full Code [facility] ?? Patient seen and examined at bedside. All labs and imaging were reviewed by myself. Case discussed with attending physician. Medicare Inpatient Attestation I have personally seen and examined the patient??on?? 04/06/2024. I have??discussed the management with the resident. I have reviewed the resident's note and agree with the documented history, physical examination findings, assessment??and plan of care. Problem List/Past Medical History Ongoing No qualifying data Historical No qualifying data Medications Inpatient No active inpatient medications Home amiodarone 200 mg oral tablet, 200 mg= 1 tab(s), Oral, Daily atorvastatin 80 mg oral tablet, 80 mg= 1 tab(s), Oral, Daily Eliquis 5 mg oral tablet, Oral, Daily furosemide 40 mg oral tablet, 40 mg= 1 tab(s), Oral, Daily metoprolol succinate 50 mg oral tablet, extended release, 50 mg= 1 tab(s), Oral, Daily traZODone 100 mg oral tablet, 200 mg= 2 tab(s), Oral, Daily Allergies No Known Allergies Lab Results Test Name Test Result Date/Time Sodium 138 mmol/L 04/06/2024 04:52 EDT Potassium 3.5 mmol/L 04/06/2024 04:52 EDT Chloride 102 mmol/L 04/06/2024 04:52 EDT Carbon Dioxide 23 mmol/L 04/06/2024 04:52 EDT BUN 22 mg/dL 04/06/2024 04:52 EDT Creatinine 1.3 mg/dL 04/06/2024 04:52 EDT eGFR 61 mL/min/1.73m?? 04/06/2024 04:52 EDT Glucose 197 mg/dL 04/06/2024 04:52 EDT Calcium 8.8 mg/dL 04/06/2024 04:52 EDT Anion Gap 16.5 mmol/L 04/06/2024 04:52 EDT BUN/Crea Ratio 16.9 mg/dL 04/06/2024 04:52 EDT Albumin 3.9 g/dL 04/06/2024 04:52 EDT Alkaline Phosphatase 53 unit/L 04/06/2024 04:52 EDT ALT 25 unit/L 04/06/2024 04:52 EDT AST 15 unit/L 04/06/2024 04:52 EDT Bili Total 0.7 mg/dL 04/06/2024 04:52 EDT Prot Total 6.6 g/dL 04/06/2024 04:52 EDT Globulin 2.7 g/dL 04/06/2024 04:52 EDT Albumin/Globulin Ratio 1.4 g/dL 04/06/2024 04:52 EDT B Type Natriuretic Peptide 496.0 pg/mL 04/06/2024 04:52 EDT Ca Corrected 8.9 mg/dL 04/06/2024 04:52 EDT Electronically Signed on 04/06/2024 06:30 EDT NORMA HILLMAN MD Electronically Signed on 04/06/2024 06:36 EDT FLORENTIN SPAIN MD Electronically Signed on 04/06/2024 06:36 EDT FLORENTIN SPAIN MD Electronically Signed on 04/06/2024 13:[address] MD Modified by: FLORENTIN SPAIN MD on 04/06/2024 06:36 EDT Modified by: FLORENTIN SPAIN MD on 04/06/2024 06:36 EDT Modified by: JOSE LUIS LANE MD on 04/06/2024 13:15 EDT Discharge summary * EILEEN DAVIES MD: MODIFY ADELSO CUELLAR MD: PERFORM, MODIFY ADELSO CUELLAR MD: MODIFY Event Display: Discharge Summary Authored Date: [id number] Admission Date April 06, 2024 Discharge Date April 08, 2024 Chief Complaint Transfer from [place] for CHF and sob; per report he had sob with 02 sat of 70% room air; + wheezing; went to [place] put on bipap and get improves; was given morphine, levaquin, solumedrol, duoneb; cxr shows cardiomegaly and CHF. ?? Patient is a 63 year old male with PMHx significant for paroxysmal Afib and CHF (unknown EF)??presented to the ED after getting transferred from [facility] wherehe was [facility] for??CHF exacerbation. Pt is Ukrainian speaking and speaks limited amount of Italian.Lab Aid services were unavailable. History obtained from speaking with pt, chart review and [facility] records. Patient reports that he is visiting from [facility]. He reports developing SOB??and cough with blood streaked sputum yesterday which prompted him??to go to the ER at [facility]. He denies any chest pain, diaphoresis,??palpitations, syncope or lightheadedness at that time.??On prese ntation at [facility] he was maintaining??SpO2 of 70% on room air and was put on a BiPAP. ??He reports frequent admission to the hospital for CHF exacerbation in the past. At [facility], his CXR showed CHF with cardiomegaly with bibasilar pulmonary opacities and small bilateral pleural effusions. He was administered IV?? Lasix 60 mg, IV Levaquin 750 mg, IV morphine 2mg/ ml, Solu-Medrol 125 mg, DuoNeb and Proventil at [facility]. His infectious panel for Influenza, respiratory syncytial virus and COVID 19 was negative at the time. However, his WBC count was elevated at??15.8, BNP was 369, troponin 32,??creatinine 1.5, eGFR 51 and??Lactate was 4.1. His ABGs showed pH of 7.25 and??pCO2 of 58. He denies any vision trouble,??headache, abdominal pain, nausea, vomiting, diarrhea,??melena, hematuria and burning micturition.? In the ER, his vitals were temperature of 96.9, B/P 106/54, pulse rate 65, RR of 23 and SpO2 of 97%on 4 L O2. EKG showed NSR. On his labs, his CBC showed Hgb of 13.9, WBC count of 11.9 and platelet count of 202. On his chemistry, his sodium was 138. potassium 3.5, creatinine 1.3, eGFR 61, glucose 197, anion gap 16.5, BNP of 496, troponin of 65. His CXR showed cardiomegaly and central pulmonary va scular congestion. Hospital Course Pt was admitted for the management of an acute hypoxic respiratory failure in the setting of??exacerbation of heart failure with reduced ejection fraction vs??community acquired pneumonia requiring 4L of??O2 via [place].??His initial lab work and imaging study were consistent with volume overload and??b/l opacities.??While in the hospital,??he was??given IV diuretics. Echo was done which showed EF of25%, grade 3 diastolic dysfunction and posterior lateral akinesia consistent with CAD. Cardiology was on board, and pt was started on GDMT which she tolerated well.?? As per pt, he is going to get the defibrillator placement in the coming week in [place].??Pt was??advised to follow-up with physician credentialing specialist back in [place] to get the defibrillator placed.??Pt's oxygen requirements continueto downtitrated during his stay, ambulatory pulse ox was done. The pt didn't quality for home O2. As pt was clinically and hemodynamically stable so he was discharged to home today with the advise to follow up with PCP and cardiology within 1 to 2 weeks of discharge. ?? Procedures N/A Consults Consult to Cardiology Adult - Completed?-- 04/06/24 7:36:00 EDT, Routine, KENNETH CULLEN MD, Patient with hx of HF with unknown EF presenting with CHF exacerbation and troponemia, please evaluate Significant findings from diagnostic/lab tests All Labs [Within the Last 24 Hours] WBC: 8.8 x10^3/mcL (04/08/24 08:28:00) RBC: 4.74 x10^6/mcL (04/08/24 08:28:00) Hgb: 14.2 g/dL (04/08/24 08:28:00) HCT:??41.6 %??Low (04/08/24 08:28:00) MCH: 30 pg (04/08/24 08:28:00) MCHC: 34.2 g/dL (04/08/24 08:28:00) MCV: 88 fL (04/08/24 08:28:00) Plt Cnt: 205 x10^3/mcL (04/08/24 08:28:00) MPV: 10.7 fL (04/08/24 08:28:00) RDW: 14.5 % (04/08/24 08:28:00) Neutrophils% Auto: 70.9 % (04/08/24 08::00) Lymphocytes% Auto: 20.3 % (04/08/24 08:28:00) Monocytes% Auto: 5.8 % (04/08/24 08:28:00) Basophils% Auto: 0.6 % (04/08/24 08::00) Eosinophils% Auto: 2.4 % (04/08/24 08:28:00) Neutrophils# Auto: 6.2 x10^3/mcL (04/08/24 08:28:00) Lymphocytes# Auto: 1.8 x10^3/mcL (04/08/24 08:28:00) Monocytes# Auto: 0.5 x10^3/mcL (04/08/24 08:28:00) Basophils# Auto: 0.1 x10^3/mcL (04/08/24 08:28:00) Eos# Auto: 0.2 x10^3/mcL (04/08/24 08:28:00) Sodium: 140 mmol/L (04/08/24 08:28:00) Potassium:??3.5 mmol/L??Low (04/08/24 08:28:00) Chloride: 103 mmol/L (04/08/24 08:28:00) Carbon Dioxide: 26 mmol/L (04/08/24 08:28:00) BUN: 24 mg/dL (04/08/24 08:28:00) Creatinine: 1.1 mg/dL (04/08/24 08:28:00) eGFR:??74 mL/min/1.73m?Low (04/08/24 08:28:00) Glucose:??143 mg/dL??High (04/08/24 08:28:00) Calcium: 8.9 mg/dL (04/08/24 08:28:00) Anion Gap: 14.5 mmol/L (04/08/24 08:28:00) BUN/Crea Ratio: 21.8 mg/dL (04/08/24 08:28:00) Phosphorus: 3.1 mg/dL (04/08/24 08:28:00) Magnesium: 2.1 mg/dL (04/08/24 08:28:00) Glu POC Bdside: 94 mg/dL (04/08/24 12:16:00) Physical Exam on the day of discharge Vitals & Measurements T:??97.9?F??(Temporal Artery)?? TMIN:??97.0?F??(Temporal Artery)?? TMAX:??97.9?F??(Temporal Artery)?? HR:??56??(Peripheral)?? RR:??18?? BP:??103/56?? SpO2:??93%?? WT:??93.3??kg??(Dosing)?? General: well appearing, no acute distress Respiratory: normal chest wall expansion,??mild basal crackles Cardiovascular: No murmurs/rubs/gallops, Normal S1 and S2 Abdomen: Soft, non-tender, non-distended Integumentary/Extremities: warm, dry, and pink, with no rash;??1+??pitting edema??bilateral lower extremity Neurological: Cranial Nerves II-XII grossly intact; AAO x 3 Discharge Diagnoses Diagnosis (3) Active ?Acute exacerbation of CHF (congestive heart failure) (ICD-10-CM I50.9, Discharge, Medical) ?Non-ischemic cardiomyopathy (ICD-10-CM I42.8, Discharge, Medical) ?Shortness of breath (PNED [id number], Reason For Visit, Medical) ? Discharge Plan Acute exacerbation of CHF (congestive heart failure) (Heart failure, unspecified, I50.9) Non-ischemic cardiomyopathy (Other cardiomyopathies, I42.8) Orders: traZODone, 200 mg, Tab, Oral, Daily at Bedtime, Routine, First Dose: 04/08/24 22:00:00 EDT, 04/08/24 9:57:00 EDT Discharge medications PDMP Review: Not Reviewed Summary of medication changes with reasons -Entresto 24-26mg BID was started -spironolactone 25 mg OD was started -Farxiga 10 mg OD was started -Cefdinir 300 mg BID to complete total of 7 days for PNA -Metoprolol dose reduced to 25 Mg once daily -Lasix dose increased to 40 mg twice daily Allergies No Known Allergies Discharge Orders Discharge Patient - Ordered?-- 04/08/24 13:57:00 EDT, to Home/Self Care Activity As tolerated Follow up appointments Follow up with PCP and??physician credentialing specialist in [facility] ?? Discharge Condition Stable Disposition Home [place] items to be followed by outpatient providers N/A Electronically Signed on 04/08/2024 15:33 EDT ADELSO CUELLAR MD Electronically Signed on 04/08/2024 15:49 EDT EILEEN DAVIES MD Modified by: ADELSO CUELLAR MD on 04/08/2024 15:33 EDT Modified by: EILEEN DAVIES MD on 04/08/2024 15:49 EDT * EILEEN DAVIES MD: PERFORM Event Display: Discharge Summary Authored Date: [id number] Patient was personally seen and examined on 04/08/24. I reviewed the medications. I agree with resident note, assessment and plan. Electronically Signed on 04/08/2024 15:50 EDT EILEEN DAVIES MD Modified by: EILEEN DAVIES MD on 04/08/2024 15:50 EDT Patient Care team information Personnel Name: UNKNOWN ANALY, SCREED PERSON Address: Address: [address] [place] [address] [place] [address]
== END 2024-07-05 11:09 | disposition home or self-care (01) | DRG 291 ==
LOC: HO.ED 07-04 01:06 → HO.EDOVER 07-04 04:42 → HO.S3 07-04 15:39
PROVIDERS: Physician Assistant Medical; Admitting Provider Student in an Organized Health Care Education/Training Program; Emergency Provider Emergency Medicine; PCP Internal Medicine; Visit Provider Internal Medicine
DX: I11.0 Hypertensive heart disease with heart failure (principal); I50.23 Acute on chronic systolic (congestive) heart failure; I48.19 Other persistent atrial fibrillation; J44.9 Chronic obstructive pulmonary disease, unspecified; I25.10 Atherosclerotic heart disease of native coronary artery without angina pectoris; Z95.5 Presence of coronary angioplasty implant and graft; N40.0 Benign prostatic hyperplasia without lower urinary tract symptoms; E78.2 Mixed hyperlipidemia; F39 Unspecified mood [affective] disorder; Z20.822 Contact with and (suspected) exposure to COVID-19; Z79.01 Long term (current) use of anticoagulants; Z79.82 Long term (current) use of aspirin; Z79.899 Other long term (current) drug therapy
CPT/HCPCS: 0241U; 36415; 71046; 71260; 80048; 80053; 82947; 83605; 83735; 83880; 84484; 85025; 85027; 87040; 93005; 99285; J0696; J1940

== ENCOUNTER → 2024-07-03 21:13 | Outpatient (BNV) | payer OTHER, SELFPAY | PROVIDERS: Admitting Provider Student in an Organized Health Care Education/Training Program; Emergency Provider Emergency Medicine; PCP Internal Medicine; Visit Provider Internal Medicine Cardiovascular Disease | DX: I48.91 Unspecified atrial fibrillation (principal) | CPT/HCPCS: 93010 ==

== ENCOUNTER → 2024-07-03 22:35 | Outpatient (BNV) | payer OTHER, SELFPAY | PROVIDERS: Emergency Provider Emergency Medicine; PCP Internal Medicine; Visit Provider Student in an Organized Health Care Education/Training Program | DX: I42.8 Other cardiomyopathies (principal) | CPT/HCPCS: 99223; 99239; 99499 ==

== ENCOUNTER 2024-07-07 23:13 | Inpatient (IN) | payer OTHER, SELFPAY ==
--- NOTE | ~2024-07-07 | XR_ITS ---
EXAMINATION: XR CHEST CLINICAL INFORMATION: dyspnea on exertion COMPARISON: CT chest 07/04/2024. Chest radiograph 07/03/2024 TECHNIQUE: 2 views of the chest were obtained. FINDINGS: Cardiac silhouette remains enlarged. Minimal blunting of the left costophrenic sulcus. Diffuse pulmonary vascular indistinctness and diffuse fine pulmonary reticular opacities. Findings suspicious for developing bilateral Dmtiriy-B lines.. No pneumothoraces. No skeletal abnormalities identified. XR/XR chest 2V IMPRESSION: *Mild-moderate interstitial pulmonary edema. Findings appear more pronounced than the comparison chest radiograph of 07/03/2024. *Unchanged cardiomegaly. *Trace left pleural effusion. Electronically signed by: Damian Colunga MD 07/08/2024 02:47 AM DAVID
[2024-07-07 23:21] VITALS: BP 115/53; PULSE 91; RESP 20; TEMP 36.2; O2SAT 93; BMI 36.6
[2024-07-08] VITALS (9 sets, daily range): BP systolic 91–117; BP diastolic 56–82; PULSE 66–93; RESP 16–20; TEMP 36.1–36.5; O2SAT 93–96; BMI 37.3
--- NOTE | 2024-07-08 01:10 | ED_ITS ---
HPI - General Adult General Chief complaint: Upper Respiratory Symptoms Stated complaint: side pain, difficulty breathing Time Seen by Provider: 07/08/24 01:10 History of Present Illness ED Provider: Tarsha CASILLAS narrative: The patient is a 63-year-old male with a history of congestive heart failure who was hospitalized last week for an exacerbation of his chronic congestive heart failure. He was discharged 2 days ago on Monday. He says that he felt that he was doing better while he was in the hospital but he says that his shortness of breath has gotten worse since leaving the hospital and he returns because he feels short of breath and can not get comfortable. No fevers. Related Data Home Medications ?Medication ?Instructions ?Recorded ?Confirmed trazodone 100 mg tablet 200 mg PO BEDTIME 03/19/24 07/08/24 metoprolol succinate 50 mg 25 mg PO DAILY 04/17/24 07/08/24 tablet,extended release 24 hr aspirin 81 mg tablet,delayed 81 mg PO DAILY 05/24/24 07/08/24 release sertraline 50 mg tablet 50 mg PO DAILY 06/17/24 07/08/24 olanzapine 10 mg tablet 10 mg PO BEDTIME 07/04/24 07/08/24 spironolactone 25 mg tablet 25 mg PO DAILY 07/04/24 07/08/24 Previous Rx's ?Medication ?Instructions ?Recorded lancets 28 gauge (FreeStyle #100 ea 01/17/23 Lancets) blood sugar diagnostic (OneTouch #100 ea 05/09/23 Ultra Test strips) blood-glucose meter (OneTouch #1 ea 05/09/23 Ultra2 Meter) lancets 30 gauge (OneTouch #100 ea 05/09/23 UltraSoft 2 Lancet) atorvastatin 80 mg tablet 80 mg PO DAILY #90 tabs 09/11/23 furosemide 40 mg tablet 40 mg PO BID #90 tabs 04/17/24 apixaban 5 mg tablet (Eliquis) 5 mg PO BID #180 tabs 05/01/24 tamsulosin 0.4 mg capsule (Flomax) 0.4 mg PO BEDTIME #30 caps 05/06/24 empagliflozin 10 mg tablet 10 mg PO DAILY #30 tabs 05/28/24 (Jardiance) sacubitril 49 mg-valsartan 51 mg 1 tab PO BID #60 tabs 05/28/24 tablet (Entresto) amiodarone 200 mg tablet 200 mg PO BID 30 days #60 tabs 06/17/24 Allergies Allergy/AdvReac Type Severity Reaction Status Date / Time No Known Allergies Allergy Verified 07/07/24 23:23 [No Known Allergies*] Review of Systems 2 Review of Systems: Yes all other systems are reviewed and are negative [facility] Past Medical History Medical History Persistent atrial fibrillation Congestive heart failure Atrial flutter Atrial fibrillation with rapid ventricular response Atrial fibrillation Alcohol use Hyperlipidemia LDL goal <70 Diabetes mellitus Chronic sore throat Colon perforation Foreign body in sigmoid colon Onychomycosis 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 pylori) GERD (gastroesophageal reflux disease) Breast pain Dyslipidemia Essential hypertension Obese Abdominal mass Insomnia Surgical History H/O abdominal surgery History of colonoscopy Family History Family History Father No problems noted. Mother Kidney failure Social History Social History Household Members: None Housing: Apartment Do you presently have visiting nurse or other home services: No Alcohol intake: former Patient Tobacco Use Status: Former Tobacco user Tobacco use type: Cigarette Smoked in Last 30 Days: No e-Cigarette/Vaping Use: Never Used Patient Interested in Nicotine Replacement: No Second Hand Smoke Exposure: No Use of substances other than those prescribed or required for medical reasons: No Advance Directives: No Advance Directives Information Provided: Yes Nutrition Risks: No Nutritional Risk service: No Current occupational status: retired Cognitive needs: No Hearing needs: No Vision needs: No Physical Exam ED Vital Signs: Vital Signs - 24 hr 07/07/24 23:21 07/08/24 03:14 07/08/24 03:23 Temperature 97.1 F Pulse Rate 91 Respiratory Rate 20 Blood Pressure 115/53 L 95/69 Pulse Oximetry 93 95 Oxygen Delivery Method Room Air Room Air BMI result Body Mass Index 36.6 Const Other: the patient is a valencia 63-year-old man. He is awake and alert. He seems mildly tachypneic and mildly short of breath. HENMT Other: face symmetrical. Mucous membranes moist. Eyes General: appearance normal, both eyes and all related structures Neck Neck: Yes full ROM Resp Other: Mild increased work of breathing and mild tachypnea. Quiet crackles at the bases. Cardio Rate: regular rate Rhythm: regular rhythm Heart sounds: S1 normal heart sound present and S2 normal heart sound present GI Other: Abdomen is soft and nontender Skin Other: skin is dry and unremarkable Neuro Other: the patient is awake and alert. Cranial nerves are intact. He moves his extremities symmetrically and appropriately Extrem Other: no peripheral edema Medications Administered Generic Name Dose Route Start Last Admin Trade Name Freq PRN Reason Stop Dose Admin Apixaban 5 mg 07/08/24 09:00 07/08/24 08:59 Apixaban 5 Mg Tablet PO 5 mg BID RAYMOND Administration Furosemide 40 mg 07/08/24 08:00 07/08/24 08:59 Furosemide 40 Mg/4 Ml Vial IVPUSH 40 mg BID@0800,1700 [facility] Administration Protocol Insulin Human Lispro 0 unit 07/08/24 07:30 07/08/24 11:47 Insulin Lispro 100 Unit/Ml 3 Ml Vial SUBCUT Not Given QIDACHS [facility] Protocol Metoprolol Succinate 25 mg 07/08/24 09:15 07/08/24 09:17 Metoprolol Succinate Er 25 Mg Tab.Er.24h PO 25 mg DAILY [facility] Administration Protocol Sacubitril/Valsartan 1 tab 07/08/24 09:15 07/08/24 09:17 Sacubitril/Valsartan 49/51 1 Tab Tablet PO 1 tab BID [facility] Administration Protocol Sertraline HCl 50 mg 07/08/24 09:15 07/08/24 09:17 Sertraline Hcl 50 Mg Tablet PO 50 mg DAILY [facility] Administration Sodium Chloride 3 ml 07/08/24 08:00 07/08/24 07:59 0.9 % Sodium Chloride Flush 3 Ml Syringe IVFLUSH Not Given QSHIFT [facility] Spironolactone 25 mg 07/08/24 09:15 07/08/24 09:16 Spironolactone 25 Mg Tablet PO 25 mg DAILY [facility] Administration Protocol Discontinued Medications Generic Name Dose Route Start Last Admin Trade Name Freq PRN Reason Stop Dose Admin Furosemide 80 mg 07/08/24 02:55 07/08/24 03:14 Furosemide 100 Mg/10 Ml Vial IVPUSH 07/08/24 02:56 80 mg ONCE ONE Administration Protocol Medical Decision Making Medical Decision Making [facility] Narrative: the patient is a 63-year-old male with a history of congestive heart failure. He was hospitalized last week for an exacerbation of his chronic congestive heart failure. Despite the hospitalization he feels that as soon as he left the hospital he started feel worse again. He feels short of breath on exertion. He has orthopnea. He cannot sleep. On exam is mildly tachypneic. Chest x-ray shows ongoing findings of interstitial congestion. His BNP is still considerably above what I suspect his baseline is. The patient and his both seem to be under the impression that he had been treated for pneumonia last week I do not see any evidence of pneumonia. I think he still has significant shortness of breath and orthopnea and exertional dyspnea from ongoing worsening congestive heart failure. The patient was given 80 mg of IV furosemide and admitted to the hospital service. EKG shows an old left bundle branch block. Troponin is not elevated. Lab Data 07/08/24 01:54 07/08/24 01:54 Labs: Lab Results 07/08/24 07/08/24 Range/Units 01:45 01:54 WBC 8.3 (4.8-10.8) X10*3/uL RBC 5.18 (4.60-5.80) X10*6/uL Hgb 15.1 (14.0-18.0) g/dl Hct 44.1 (42.0-52.0) % MCV 85.1 (80.0-98.0) fL MCH 29.2 (27.0-33.0) pg MCHC 34.2 (31.0-36.0) g/dl RDW 14.6 (11.0-16.0) % Plt Count 241 (160-400) X10*3/uL MPV 11.9 (9.4-12.4) fL Immature Gran % (Auto) 0.2 (0.0-0.4) % Neut % (Auto) 69.7 (45-73) % Lymph % (Auto) 20.0 (20-40) % Preble % (Auto) 7.9 (2-11) % Eos % (Auto) 1.1 (0-4) % Baso % (Auto) 1.1 (0-2) % Lymph # (Auto) 1.7 (1.2-4.9) X10*3/uL Preble # (Auto) 0.7 (0.1-1.2) X10*3/uL Eos # (Auto) 0.1 (0.0-0.4) X10*3/uL Baso # (Auto) 0.1 (0.0-0.2) X10*3/uL Abs Immat Gran (auto) 0.02 (0.00-0.03) X10*3/uL Absolute Neuts (auto) 5.8 (2.0-8.3) x10*3/uL Absolute Nucleated RBC 0.000 (0.0-0.012) X10*3/uL Nucleated RBC % (auto) 0.0 (0.0-0.2) /100WBC PT 18.6 H (10.9-12.4) SEC INR 1.6 H (0.9-1.1) Sodium 140 (135-145) mmol/L Potassium 3.6 (3.3-5.1) mmol/L Chloride 106 (96-108) mmol/L Carbon Dioxide 21 L (22-29) mmol/L Anion Gap 17 (12-20) BUN 26 H (9-16) mg/dL Creatinine 1.36 (0.5-1.4) mg/dL Estim Creat Clear Calc 52.8 Estimated GFR 53 Random Glucose 114 (60-115) mg/dL Calcium 9.3 (8.4-10.2) mg/dL Magnesium 2.4 (1.6-2.6) mg/dL Total Bilirubin 0.6 (0.0-1.0) mg/dL Direct Bilirubin 0.2 (0.0-0.5) mg/dL AST 67 H (5-37) U/L ALT 100 H (0-40) U/L Alkaline Phosphatase 94 (39-117) U/L Troponin I High Sens 26.6 (<3.5-35.0) ng/L C-Reactive Protein 1.76 H (< or = 0.50) mg/dL B-Natriuretic Peptide 1345 H (<100) pg/mL Total Protein 6.8 (6.5-8.0) g/dL Albumin 4.0 (3.5-5.0) g/dL Influenza Type A (PCR) NEGATIVE (Negative) Influenza Type B (PCR) NEGATIVE (Negative) RSV RNA Qual (PCR) NEGATIVE (Negative) SARS-CoV-2 RNA (RT-PCR) NEGATIVE (Negative) Discharge Plan Discharge Clinical Impression: CHF exacerbation Patient Disposition: Admitted As Inpatient Interventions: Admission Worksheet (ED) Last Done: 07/08/24 07:41 Discharge Date/Time: 07/08/24 08:34
--- NOTE | 2024-07-08 01:24 | ECG_ITS ---
Test Reason : SOB Blood Pressure : / mmHG Vent. Rate : 093 BPM Atrial Rate : 131 BPM P-R Int : 000 ms QRS Dur : 162 ms QT Int : 436 ms P-R-T Axes : 000 -58 082 degrees QTc Int : 542 ms Atrial flutter with probably 2:1 block Left axis deviation Left bundle branch block Abnormal ECG When compared with ECG of 03-JUL-2024 21:13, No significant changes seen Referred By: Rajesh Willingham Electronically Signed By:JACQUE NOE
[2024-07-08 01:58] LABS: MANUAL DIFF FLAG NO
[2024-07-08 02:00] LABS: Basophils Absolute Auto 0.1 X10*3/uL (0.0-0.2); Basophils Percent Auto 1.1 % (0-2); Eosinophils Absolute Auto 0.1 X10*3/uL (0.0-0.4); Eosinophils Percent Auto 1.1 % (0-4); Hematocrit 44.1 % (42.0-52.0); Hemoglobin 15.1 g/dl (14.0-18.0); Imm Gran Abs Auto 0.02 X10*3/uL (0.00-0.03); Imm Gran Pct Auto 0.2 % (0.0-0.4); Lymphocytes Absolute Auto 1.7 X10*3/uL (1.2-4.9); Mean Corpuscular HGB Conc 34.2 g/dl (31.0-36.0); Mean Corpuscular Hemoglobin 29.2 pg (27.0-33.0); Mean Corpuscular Volume 85.1 fL (80.0-98.0); Mean Platelet Volume 11.9 fL (9.4-12.4); Monocytes Absolute Auto 0.7 X10*3/uL (0.1-1.2); Monocytes Percent Auto 7.9 % (2-11); Neutrophils Absolute Auto 5.8 x10*3/uL (2.0-8.3); Neutrophils Percent Auto 69.7 % (45-73); Platelet Count 241 X10*3/uL (160-400); Red Blood Count 5.18 X10*6/uL (4.60-5.80); Red Cell Distribution Width 14.6 % (11.0-16.0); White Blood Count 8.3 X10*3/uL (4.8-10.8)
[2024-07-08 02:05] LABS: INTERNATIONAL NORM RATIO 1.6 (0.9-1.1); Prothrombin Time 18.6 SEC (10.9-12.4)
[2024-07-08 02:14] LABS: Alanine Aminotransferase 100 U/L (0-40); Alkaline Phosphatase 94 U/L (39-117); Anion Gap 17 (12-20); Aspartate Amino Transferase 67 U/L (5-37); Bilirubin Direct 0.2 mg/dL (0.0-0.5); Bilirubin Total 0.6 mg/dL (0.0-1.0); Blood Urea Nitrogen 26 mg/dL (9-16); C Reactive Protein 1.76 mg/dL (< or = 0.50); Calcium 9.3 mg/dL (8.4-10.2); Carbon Dioxide 21 mmol/L (22-29); Chloride 106 mmol/L (96-108); Creatinine Clr Calc Pharmacy 52.8; Estimated Glomerular Filt Rate 53; Glucose Random 114 mg/dL (60-115); Magnesium 2.4 mg/dL (1.6-2.6); Potassium 3.6 mmol/L (3.3-5.1); Sodium 140 mmol/L (135-145); Total Protein 6.8 g/dL (6.5-8.0)
[2024-07-08 02:20] LABS: Troponin-I High Sensitivity 26.6 ng/L (<3.5-35.0)
[2024-07-08 02:28] LABS: Influenza A PCR NEGATIVE (Negative); Influenza B PCR NEGATIVE (Negative); Resp Syncy Virus RNA Qual PCR NEGATIVE (Negative); SARS COV2 PCR INHOUSE NEGATIVE (Negative)
[2024-07-08 02:51] LABS: B Type Natriuretic Peptide 1345 pg/mL (<100)
[2024-07-08] MEDS: Furosemide 100 MG/10 ML VIAL 80 MG IVPUSH (03:14)
--- NOTE | 2024-07-08 05:18 | PM.IMHP ---
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 He was recently discharged 07/05/24 for CHF exacerbation and treated with IV lasix x2 days with improvement. He states he was feeling well when he went home and after 1 day his sx returned. His notes that he has been taking his lasix and other medications, and has been going through a lot of cardiac testing outpatient. He also does consume a lot of fluids at times and does not watch his salt intake. He denies fever, chills, or sick contacts. He does have some mild chest soreness with a deep breath and mild nausea. No changes in urination. He was also treated for community-aquired pneumonia earlier this month and completed a course of abx. Review of Systems Constitutional: Constitutional: Denies fever(s) Eyes: Eyes: Denies change in vision ENT: Denies nasal congestion, Denies nasal discharge and Denies sore throat Cardiovascular: Cardiovascular: Denies rapid heart rate, Denies lightheadedness, Denies palpitations, Reports dyspnea, Reports dyspnea on exertion and Reports orthopnea Respiratory: Respiratory: Denies cough, Reports dyspnea, Reports dyspnea on exertion and Denies wheezing Gastrointestinal: Gastrointestinal: Denies constipation, Denies diarrhea, Reports nausea and Denies vomiting Genitourinary: Genitourinary: Denies dysuria and Denies urinary incontinence Musculoskeletal: Musculoskeletal: Denies myalgias and Denies muscle cramps Integumentary/Breasts: Skin/Breast: Denies rash Neurologic: Denies confusion Psychiatric: Psychiatric: Denies confusion Comments: difficulty sleeping due to orthopnea Endocrine: Endocrine: Denies palpitations Allergic/Immunologic: Allergic/Immunologic: Denies wheezing FOR[facility]LY [facility] Medical History Persistent atrial fibrillation Congestive heart failure Atrial flutter Atrial fibrillation with rapid ventricular response Atrial fibrillation Alcohol use Hyperlipidemia LDL goal <70 Diabetes mellitus Chronic sore throat Colon perforation Foreign body in sigmoid colon Onychomycosis 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 pylori) GERD (gastroesophageal reflux disease) Breast pain Dyslipidemia Essential hypertension Obese Abdominal mass Insomnia Functional capacity: independent ambulation Family History Father No problems noted. Mother Kidney failure Surgical History H/O abdominal surgery History of colonoscopy Social History Household Members: None Housing: Apartment Do you presently have visiting nurse or other home services: No Alcohol intake: former Patient Tobacco Use Status: Former Tobacco user Tobacco use type: Cigarette Smoked in Last 30 Days: No e-Cigarette/Vaping Use: Never Used Second Hand Smoke Exposure: No Use of substances other than those prescribed or required for medical reasons: No Advance Directives: No Advance Directives Information Provided: Yes service: No Current occupational status: retired Cognitive needs: No Hearing needs: No Vision needs: No Meds Allergies Allergy/AdvReac Type Severity Reaction Status Date / Time No Known Allergies Allergy Verified 07/07/24 23:23 [No Known Allergies*] Active Medications: Current Medications Acetaminophen (Acetaminophen 325 Mg Tablet) 650 mg PO Q6H PRN PRN Reason: Pain, Mild (Pain Scale 1-3), fever or headache Calcium Carbonate (Calcium Carbonate 750 Mg Tab.Chew) 750 mg PO Q4H PRN PRN Reason: Heartburn Furosemide (Furosemide 40 Mg/4 Ml Vial) 40 mg IVPUSH BID@0800,1700 [facility]; Protocol Magnesium Hydroxide (Milk Of Magnesia 30 Ml Oral.Susp) 30 ml PO DAILY PRN PRN Reason: Constipation Melatonin (Melatonin 3 Mg Tablet) 6 mg PO BEDTIME PRN PRN Reason: Insomnia Ondansetron HCl (Ondansetron Hcl 4 Mg/2 Ml Vial) 4 mg IVPUSH Q8H PRN PRN Reason: Nausea and Vomiting Sodium Chloride (0.9 % Sodium Chloride Flush 3 Ml Syringe) 3 [facility] Home Medications ?Medication ?Instructions ?Recorded ?Confirmed ?Last Taken ?Type trazodone 100 mg tablet 200 mg PO BEDTIME 03/19/24 07/04/24 07/03/24 09:00 History metoprolol succinate 50 mg 25 mg PO DAILY 04/17/24 07/04/24 07/03/24 09:00 History tablet,extended release 24 hr aspirin 81 mg tablet,delayed 81 mg PO DAILY 05/24/24 07/04/24 07/03/24 09:00 History release sertraline 50 mg tablet 50 mg PO DAILY 06/17/24 07/04/24 07/03/24 09:00 History olanzapine 10 mg tablet 10 mg PO BEDTIME 07/04/24 07/04/24 Unknown History spironolactone 25 mg tablet 25 mg PO DAILY 07/04/24 07/04/24 Unknown History Physical Exam Vital Signs and Narrative: Vital Signs: Last Vital Signs Temp 97.1 F 07/07/24 23:21 Pulse 91 07/07/24 23:21 Resp 20 07/07/24 23:21 BP 95/69 07/08/24 03:14 Pulse Ox 95 07/08/24 03:23 O2 Del Method Room Air 07/08/24 03:23 BMI result Body Mass Index 36.6 General: AOx3, no acute distress, historic interpreter present Resp: CTA bilaterally but diminished throughout CVS: S1, S2, RRR GI: +BS, NT, no distention Skin: Warm, dry Extremities: No edema Psych: Appropriate affect Const: General: No confusion Orientation/consciousness: No confusion Neuro: General: No confusion Results Labs 07/08/24 01:54 07/08/24 01:54 Labs: Laboratory Results - last 24 hr 07/08/24 07/08/24 01:45 01:54 MCV 85.1 MCH 29.2 MCHC 34.2 RDW 14.6 Plt Count 241 MPV 11.9 Immature Gran % (Auto) 0.2 Neut % (Auto) 69.7 Lymph % (Auto) 20.0 [place] % (Auto) 7.9 Eos % (Auto) 1.1 Baso % (Auto) 1.1 Lymph # (Auto) 1.7 [place] # (Auto) 0.7 Eos # (Auto) 0.1 Baso # (Auto) 0.1 Abs Immat Gran (auto) 0.02 Absolute Neuts (auto) 5.8 Absolute Nucleated RBC 0.000 Nucleated RBC % (auto) 0.0 PT 18.6 H INR 1.6 H Anion Gap 17 Estim Creat Clear Calc 52.8 Estimated GFR 53 Random Glucose 114 Calcium 9.3 Magnesium 2.4 Total Bilirubin 0.6 Direct Bilirubin 0.2 AST 67 H ALT 100 H Alkaline Phosphatase 94 Troponin I High Sens 26.6 C-Reactive Protein 1.76 H B-Natriuretic Peptide 1345 H Total Protein 6.8 Albumin 4.0 Influenza Type A (PCR) NEGATIVE Influenza Type B (PCR) NEGATIVE RSV RNA Qual (PCR) NEGATIVE SARS-CoV-2 RNA (RT-PCR) NEGATIVE Imaging Radiologist's Impressions: Impressions Chest X-Ray 07/08/24 01:24 IMPRESSION: *Mild-moderate interstitial pulmonary edema. Findings appear more pronounced than the comparison chest radiograph of 07/03/2024. *Unchanged cardiomegaly. *Trace left pleural effusion. 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 He was recently discharged 07/05/24 for CHF exacerbation and treated with IV lasix x2 days with improvement. acute on chronic CHF exacerbation - CXR with mild to moderate interstitial pulmonary edema, findings more pronounced than the comparison from 07/03/24, and trace L pleural effusion - BNP elevated at 1345 - no leukocytosis - echo from 04/06 with EF of 10/15% - given 80mg IV lasix in ED, good urine output, continue IV lasix 40mg BID and entresto - low salt diet persistent a fib - EKG without a fib - continue eliquis BID, amiodarone BID, metoprolol QD T2DM - hold jardiance - SSI BPH - continue flomax mood disorder - continue sertraline and trazodone CAD/HLD - continue statin and ASA 81 elevated LFTs - likely realted to fatty liver disease ALT>AST full code VTE prophy: [email or web address] Pt with recurrent CHF exacerbation with failed outpt treatment after recent discharge requiring admission for at least 2 midnights stay for IV diuresis and monitoring. Quality Stroke Does the patient have a stroke diagnosis?: No VTE Prior VTE?: No VTE Risk Level:: Medical - moderate - high VTE Device Contraindication: Treatment Not Indicated VTE Drug Contraindication: N/A - Med Ordered
--- NOTE | 2024-07-08 05:21 | MHC.EDTECH ---
Rounds and vitals completed,patient appears comfortable,belongings list completed,copy placed in chart
[2024-07-08 07:41] LABS: Glucose, Whole Blood 101 mg/dL (60-115)
--- NOTE | 2024-07-08 08:08 | PHA.MEDREC ---
Addendum entered by Loy Castellanos 07/08/24 08:53: reviewed Original Note: Pharmacy Consult ? Medication Reconciliation Pharmacy has completed the medication reconciliation. Spoke with patient utilizing sign language interpreter and he was not able to confirm his medications except his Trazodone 100mg tab taking 2 tabs at bedtime. He stated he had no one for us to call right now and he is currently living alone, he did confirm he was discharged 07/05 and stated nothing changed medication ordonez since then. He confirmed he took his medications yesterday.
[2024-07-08] MEDS: Furosemide 40 MG/4 ML VIAL IVPUSH (08:59)
[2024-07-08] MEDS: Apixaban 5 MG TABLET PO ×2 (08:59→20:18)
--- NOTE | 2024-07-08 09:03 | P.PNIM_ITS ---
Subjective Subjective Date of Service: 07/08/24 Interval History: sob improved Physical Exam 2 Vital Signs: Vital Signs: Last Vital Signs Temp 97.3 F 07/08/24 08:00 Pulse 79 07/08/24 08:00 Resp 18 07/08/24 08:00 BP 117/82 07/08/24 08:00 Pulse Ox 93 07/08/24 08:00 O2 Del Method Room Air 07/08/24 08:00 BMI result Body Mass Index 36.6 General: AO X 3, no acute distress Resp: CTA bilateral, no accessory muscles used CVS: S1,S2,RRR GI: soft, non tender, non distended Neuro: motor grossly intact, alert Psych: appropriate affect, appropriate insight Objective Data Active Medications Acetaminophen (Acetaminophen 325 Mg Tablet) 650 mg PO Q6H PRN PRN Reason: Pain, Mild (Pain Scale 1-3), fever or headache Apixaban (Apixaban 5 Mg Tablet) 5 mg PO BID [facility] Calcium Carbonate (Calcium Carbonate 750 Mg Tab.Chew) 750 mg PO Q4H PRN PRN Reason: Heartburn Furosemide (Furosemide 40 Mg/4 Ml Vial) 40 mg IVPUSH BID@0800,1700 [facility]; Protocol Glucose (Glucose Gel 15 Gm Gel..Gram.) 15 gm PO Q15M PRN; Protocol PRN Reason: per Hypoglycemia Standing Ord. Dextrose (D10) 250 mls @ 750 mls/hr IV Q15M PRN; Protocol PRN Reason: per Hypoglycemia Standing Ord. Insulin Human Lispro (Insulin Lispro 100 Unit/Ml 3 Ml Vial) 0 unit SUBCUT QIDACHS [facility]; Protocol Last Admin: 07/08/24 07:59 Dose: Not Given Documented By: TRAN Non-Admin Reason: No Insulin Coverage Magnesium Hydroxide (Milk Of Magnesia 30 Ml Oral.Susp) 30 ml PO DAILY PRN PRN Reason: Constipation Melatonin (Melatonin 3 Mg Tablet) 6 mg PO BEDTIME PRN PRN Reason: Insomnia Ondansetron HCl (Ondansetron Hcl 4 Mg/2 Ml Vial) 4 mg IVPUSH Q8H PRN PRN Reason: Nausea and Vomiting Sodium Chloride (0.9 % Sodium Chloride Flush 3 Ml Syringe) [facility] Last Admin: 07/08/24 07:59 Dose: Not Given Documented By: TRAN Non-Admin Reason: Patient Asleep Labs 07/08/24 01:54 07/08/24 01:54 Labs: Laboratory Results - last 24 hr 07/08/24 07/08/24 07/08/24 01:45 01:54 07:36 MCV 85.1 MCH 29.2 MCHC 34.2 RDW 14.6 Plt Count 241 MPV 11.9 Immature Gran % (Auto) 0.2 Neut % (Auto) 69.7 Lymph % (Auto) 20.0 [place] % (Auto) 7.9 Eos % (Auto) 1.1 Baso % (Auto) 1.1 Lymph # (Auto) 1.7 [place] # (Auto) 0.7 Eos # (Auto) 0.1 Baso # (Auto) 0.1 Abs Immat Gran (auto) 0.02 Absolute Neuts (auto) 5.8 Absolute Nucleated RBC 0.000 Nucleated RBC % (auto) 0.0 PT 18.6 H INR 1.6 H Anion Gap 17 Estim Creat Clear Calc 52.8 Estimated GFR 53 POC Glucose 101 Random Glucose 114 Calcium 9.3 Magnesium 2.4 Total Bilirubin 0.6 Direct Bilirubin 0.2 AST 67 H ALT 100 H Alkaline Phosphatase 94 Troponin I High Sens 26.6 C-Reactive Protein 1.76 H B-Natriuretic Peptide 1345 H Total Protein 6.8 Albumin 4.0 Influenza Type A (PCR) NEGATIVE Influenza Type B (PCR) NEGATIVE RSV RNA Qual (PCR) NEGATIVE SARS-CoV-2 RNA (RT-PCR) NEGATIVE Assessment and Plan (1) NICM (nonischemic cardiomyopathy): Status: Acute Plan 63M PMH hfref ef 10-15%, chronic afib, bph, mood disorder, hld, CAD, presented with sob. Acute on chronic systolic CHF Continue IV Lasix, patient educated on compliance with low-salt diet and fluid restriction Continue beta-akanksha, Aldactone, Entresto, Jardiance Chronic AFib Continue amiodarone, metoprolol, Eliquis Diabetes Insulin sliding scale BPH Continue Flomax Mood disorder Continue sertraline and trazodone CAD Continue Eliquis, aspirin, statin Transaminitis Nonalcoholic fatty liver versus hepatic congestion Outpatient monitoring DVT prophylaxis on Eliquis Full Code reason for continued hospitalization: IV diuresis Quality Stroke Does the patient have a stroke diagnosis?: No VTE Prior VTE?: No VTE Risk Level:: Medical - moderate - high VTE Device Contraindication: Treatment Not Indicated VTE Drug Contraindication: N/A - Med Ordered
[2024-07-08] MEDS: Spironolactone 25 MG TABLET PO (09:16)
[2024-07-08] MEDS: Sertraline HCL 50 MG TABLET PO (09:17)
[2024-07-08] MEDS: Metoprolol Succinate ER 25 MG TAB.ER.24H PO (09:17)
[2024-07-08] MEDS: Sacubitril/Valsartan 49/51 1 TAB TABLET PO ×2 (09:17→20:18)
--- NOTE | 2024-07-08 09:48 | MHC.CM.PN ---
PT LIVES ALONE HAS NO SERVIES AT THIS TIME BUT SHOULD HAVE A HAULAGE ENGINE OPERATOR SOON HAS OWN RIDE HOME DC PLAN HOME NO SERVICES
[2024-07-08 11:14] LABS: Glucose, Whole Blood 101 mg/dL (60-115)
[2024-07-08 16:18] LABS: Glucose, Whole Blood 124 mg/dL (60-115)
[2024-07-08] MEDS: 0.9 % Sodium Chloride Flush 3 ML SYRINGE IVFLUSH ×2 (16:21→20:18)
--- NOTE | 2024-07-08 17:40 | PC.NURSE ---
Nikolai held for BP 91/62, MD Diaz made aware, pt asymptomatic.
[2024-07-08] MEDS: Amiodarone HCL 200 MG TABLET PO (20:18)
[2024-07-08] MEDS: Tamsulosin HCL 0.4 MG CAPSULE PO (20:18)
[2024-07-08] MEDS: OLANZapine 10 MG TABLET PO (20:18)
[2024-07-08] MEDS: traZODone HCL 100 MG TABLET 200 MG PO (20:18)
[2024-07-08 20:49] LABS: Glucose, Whole Blood 135 mg/dL (60-115)
[2024-07-09] VITALS (9 sets, daily range): BP systolic 89–128; BP diastolic 58–72; PULSE 61–97; RESP 16–18; TEMP 35.9–37.2; O2SAT 84–98
--- NOTE | 2024-07-09 03:32 | PC.NURSE ---
02sat-85% on RA placed on 2L N/C 02sat-94-95%.
[2024-07-09 06:00] LABS: MANUAL DIFF FLAG NO
[2024-07-09 06:08] LABS: Basophils Absolute Auto 0.1 X10*3/uL (0.0-0.2); Basophils Percent Auto 1.8 % (0-2); Eosinophils Absolute Auto 0.2 X10*3/uL (0.0-0.4); Eosinophils Percent Auto 3.2 % (0-4); Imm Gran Abs Auto 0.01 X10*3/uL (0.00-0.03); Imm Gran Pct Auto 0.2 % (0.0-0.4); Lymphocytes Absolute Auto 1.6 X10*3/uL (1.2-4.9); Lymphocytes Percent Auto 25.1 % (20-40); Mean Corpuscular HGB Conc 34.1 g/dl (31.0-36.0); Mean Corpuscular Hemoglobin 29.4 pg (27.0-33.0); Mean Corpuscular Volume 86.3 fL (80.0-98.0); Monocytes Absolute Auto 0.7 X10*3/uL (0.1-1.2); Monocytes Percent Auto 10.6 % (2-11); Neutrophils Absolute Auto 3.7 x10*3/uL (2.0-8.3); Neutrophils Percent Auto 59.1 % (45-73); Platelet Count 236 X10*3/uL (160-400); Red Cell Distribution Width 14.5 % (11.0-16.0); White Blood Count 6.2 X10*3/uL (4.8-10.8)
[2024-07-09 06:23] LABS: Anion Gap 13 (12-20); Blood Urea Nitrogen 22 mg/dL (9-16); Calcium 8.9 mg/dL (8.4-10.2); Carbon Dioxide 25 mmol/L (22-29); Chloride 105 mmol/L (96-108); Creatinine Clr Calc Pharmacy 62.1; Estimated Glomerular Filt Rate > 60; Glucose Random 105 mg/dL (60-115); Potassium 3.4 mmol/L (3.3-5.1); Sodium 140 mmol/L (135-145)
[2024-07-09 07:36] LABS: Glucose, Whole Blood 100 mg/dL (60-115)
--- NOTE | 2024-07-09 08:22 | HO.PM.IMPN ---
Subjective Subjective Date of Service: 07/09/24 Interval History: Feels about the same Physical Exam Vital Signs: Vital Signs: Last Vital Signs Temp 96.8 F 07/09/24 07:29 Pulse 80 07/09/24 07:29 Resp 18 07/09/24 07:29 BP 90/60 07/09/24 07:29 Pulse Ox 93 07/09/24 07:29 O2 Del Method Nasal Cannula 07/09/24 07:29 O2 Flow Rate 3 07/09/24 03:35 BMI result Body Mass Index 37.3 General: AO X 3, no acute distress Resp: Basilar crackles bilateral, no accessory muscles used CVS: S1,S2,RRR GI: soft, non tender, non distended Neuro: motor grossly intact, alert Psych: appropriate affect, appropriate insight Objective Data Active Medications Acetaminophen (Acetaminophen 325 Mg Tablet) 650 mg PO Q6H PRN PRN Reason: Pain, Mild (Pain Scale 1-3), fever or headache Amiodarone HCl (Amiodarone Hcl 200 Mg Tablet) 200 mg PO BID [facility] Last Admin: 07/08/24 20:18 Dose: 200 mg Documented By: DANNI Apixaban (Apixaban 5 Mg Tablet) 5 mg PO BID [facility] Last Admin: 07/08/24 20:18 Dose: 5 mg Documented By: DANNI Aspirin (Aspirin Enteric Coated 81 Mg Tablet.) 81 mg PO DAILY [facility] Atorvastatin Calcium (Atorvastatin Calcium 80 Mg Tablet) 80 mg PO DAILY [facility] Calcium Carbonate (Calcium Carbonate 750 Mg Tab.Chew) 750 mg PO Q4H PRN PRN Reason: Heartburn Empagliflozin (Empagliflozin 10 Mg Tablet) 10 mg PO DAILY [facility] Furosemide (Furosemide 40 Mg/4 Ml Vial) 40 mg IVPUSH BID@0800,1700 [facility]; Protocol Last Admin: 07/08/24 16:25 Dose: Not Given Documented By: JAGRUTI Non-Admin Reason: held for hypotension Glucose (Glucose Gel 15 Gm Gel..Gram.) 15 gm PO Q15M PRN; Protocol PRN Reason: per Hypoglycemia Standing Ord. Dextrose (D10) 250 mls @ 750 mls/hr IV Q15M PRN; Protocol PRN Reason: per Hypoglycemia Standing Ord. Insulin Human Lispro (Insulin Lispro 100 Unit/Ml 3 Ml Vial) 0 unit SUBCUT QIDACHS [facility]; Protocol Last Admin: 07/09/24 07:51 Dose: Not Given Documented By: PATIENCE Non-Admin Reason: No Insulin Coverage Magnesium Hydroxide (Milk Of Magnesia 30 Ml Oral.Susp) 30 ml PO DAILY PRN PRN Reason: Constipation Melatonin (Melatonin 3 Mg Tablet) 6 mg PO BEDTIME PRN PRN Reason: Insomnia Metoprolol Succinate (Metoprolol Succinate Er 25 Mg Tab.Er.24h) 25 mg PO DAILY [facility]; Protocol Last Admin: 07/08/24 09:17 Dose: 25 mg Documented By: JAGRUTI Olanzapine (Olanzapine 10 Mg Tablet) 10 mg PO BEDTIME [facility] Last Admin: 07/08/24 20:18 Dose: 10 mg Documented By: DANNI Ondansetron HCl (Ondansetron Hcl 4 Mg/2 Ml Vial) 4 mg IVPUSH Q8H PRN PRN Reason: Nausea and Vomiting Sacubitril/Valsartan (Sacubitril/Valsartan 49/51 1 Tab Tablet) 1 tab PO BID [facility]; Protocol Last Admin: 07/08/24 20:18 Dose: 1 tab Documented By: DANNI Sertraline HCl (Sertraline Hcl 50 Mg Tablet) 50 mg PO DAILY [facility] Last Admin: 07/08/24 09:17 Dose: 50 mg Documented By: JAGRUTI Sodium Chloride (0.9 % Sodium Chloride Flush 3 Ml Syringe) 3 ml IVFLUSH QSHIFT [facility] Last Admin: 07/08/24 20:18 Dose: 3 ml Documented By: DANNI Spironolactone (Spironolactone 25 Mg Tablet) 25 mg PO DAILY [facility]; Protocol Last Admin: 07/08/24 09:16 Dose: 25 mg Documented By: JAGRUTI Tamsulosin HCl (Tamsulosin Hcl 0.4 Mg Capsule) 0.4 mg PO BEDTIME [facility] Last Admin: 07/08/24 20:18 Dose: 0.4 mg Documented By: DANNI Trazodone HCl (Trazodone Hcl 100 Mg Tablet) 200 mg PO BEDTIME [facility] Last Admin: 07/08/24 20:18 Dose: 200 mg Documented By: DANNI Labs 07/09/24 05:40 07/09/24 05:40 Labs: Laboratory Results - last 24 hr 07/08/24 07/08/24 07/08/24 11:10 16:11 20:45 MCV MCH MCHC RDW Plt Count MPV Immature Gran % (Auto) Neut % (Auto) Lymph % (Auto) [place] % (Auto) Eos % (Auto) Baso % (Auto) Lymph # (Auto) [place] # (Auto) Eos # (Auto) Baso # (Auto) Abs Immat Gran (auto) Absolute Neuts (auto) Absolute Nucleated RBC Nucleated RBC % (auto) Anion Gap Estim Creat Clear Calc Estimated GFR POC Glucose 101 124 H 135 H Random Glucose Calcium 07/09/24 07/09/24 05:40 07:27 MCV 86.3 MCH 29.4 MCHC 34.1 RDW 14.5 Plt Count 236 MPV 12.0 Immature Gran % (Auto) 0.2 Neut % (Auto) 59.1 Lymph % (Auto) 25.1 [place] % (Auto) 10.6 Eos % (Auto) 3.2 Baso % (Auto) 1.8 Lymph # (Auto) 1.6 [place] # (Auto) 0.7 Eos # (Auto) 0.2 Baso # (Auto) 0.1 Abs Immat Gran (auto) 0.01 Absolute Neuts (auto) 3.7 Absolute Nucleated RBC 0.000 Nucleated RBC % (auto) 0.0 Anion Gap 13 Estim Creat Clear Calc 62.1 Estimated GFR > 60 POC Glucose 100 Random Glucose 105 Calcium 8.9 Assessment and Plan (1) NICM (nonischemic cardiomyopathy): Status: Acute Plan 63M PMH hfref ef 10-15%, chronic afib, bph, mood disorder, hld, CAD, presented with sob. Acute on chronic systolic CHF Now with acute hypoxic respiratory failure requiring 3 L Continue IV Lasix, patient educated on compliance with low-salt diet and fluid restriction Continue beta-akanksha Holding other neuro hormonal due to relative hypotension Cardio eval Chronic AFib Continue amiodarone, metoprolol, Eliquis Diabetes Insulin sliding scale BPH Continue Flomax Mood disorder Continue sertraline and trazodone CAD Continue Eliquis, aspirin, statin Transaminitis Nonalcoholic fatty liver versus hepatic congestion Outpatient monitoring DVT prophylaxis on Eliquis Full Code reason for continued hospitalization: IV diuresis, hypoxic Quality Stroke Does the patient have a stroke diagnosis?: No VTE Prior VTE?: No VTE Risk Level:: Medical - moderate - high VTE Device Contraindication: Treatment Not Indicated VTE Drug Contraindication: N/A - Med Ordered
[2024-07-09] MEDS: Atorvastatin Calcium 80 MG TABLET PO (08:23)
[2024-07-09] MEDS: Sertraline HCL 50 MG TABLET PO (08:23)
[2024-07-09] MEDS: Aspirin Enteric Coated 81 MG TABLET.DR PO (08:23)
[2024-07-09] MEDS: Amiodarone HCL 200 MG TABLET PO (08:23)
[2024-07-09] MEDS: Apixaban 5 MG TABLET PO (08:23)
[2024-07-09] MEDS: Furosemide 40 MG/4 ML VIAL IVPUSH ×2 (08:26→16:55)
[2024-07-09] MEDS: 0.9 % Sodium Chloride Flush 3 ML SYRINGE IVFLUSH ×2 (08:27→15:48)
--- NOTE | 2024-07-09 09:49 | P.CONCA_ITS ---
History of Present Illness History of Present Illness Date of Service: 07/09/24 Chief complaint: Dyspnea Narrative: This is a cardiology consultation regarding congestive heart failure. He was recently in the hospital for congestive heart failure and at that time, he underwent cardioversion for atrial fibrillation. He was supposed to see EP for consideration of ablation but I am not clear if that ever happened. Currently, he is back in the hospital with shortness of breath and heart failure symptoms again. When I reviewed the EKGs, the EKG from 03 of July shows atrial flutter with controlled rate. Prior to that, EKG from 21 of June shows sinus rhythm. Hence more than likely, he went into recurrent atrial arrhythmias precipitating another admission for congestive heart failure. Review of Systems 2 Review of Systems: Yes all other systems are reviewed and are negative Constitutional: Constitutional: Reports as per HPI and Reports no additional constitutional complaints Eyes: Eyes: Reports as per HPI and Denies no additional eye complaints ENT: Denies system reviewed and no additional complaints, except as documented and Reports as per HPI Cardiovascular: Cardiovascular: Reports as per HPI, Reports no additional cardiovascular complaints, Denies acrocyanosis, Denies cool extremities, Denies chest pain, Denies leg edema, Denies lightheadedness, Denies palpitations and Reports dyspnea Respiratory: Respiratory: Reports as per HPI, Denies no additional respiratory complaints and Reports dyspnea Gastrointestinal: Gastrointestinal: Reports as per HPI and Denies no additional gastrointestinal complaints Genitourinary: Genitourinary: Reports no additional male genitourinary complaints and Reports as per HPI Musculoskeletal: Musculoskeletal: Reports no additional musculoskeletal complaints and Reports as per HPI Integumentary/Breasts: Skin/Breast: Reports system reviewed and no additional complaints, except as docu Neurologic: Reports system reviewed and no additional complaints, except as documented and Reports as per HPI Psychiatric: Psychiatric: Reports no additional psychiatric complaints and Reports as per HPI Endocrine: Endocrine: Reports no additional endocrine complaints, Reports as per HPI and Denies palpitations Hematologic/Lymphatic: Hematologic/Lymphatic: Reports no additional hematologic/lymphatic complaints and Reports as per HPI Allergic/Immunologic: Allergic/Immunologic: Reports no additional allergic/immunologic complaints and Reports as per HPI [facility] Past Medical History Medical History Persistent atrial fibrillation Congestive heart failure Atrial flutter Atrial fibrillation with rapid ventricular response Atrial fibrillation Alcohol use Hyperlipidemia LDL goal <70 Diabetes mellitus Chronic sore throat Colon perforation Foreign body in sigmoid colon Onychomycosis 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 pylori) GERD (gastroesophageal reflux disease) Breast pain Dyslipidemia Essential hypertension Obese Abdominal mass Insomnia Family History Family History Father No problems noted. Mother Kidney failure Surgical History Surgical History H/O abdominal surgery History of colonoscopy Social History Social History Household Members: None Housing: Apartment Do you presently have visiting nurse or other home services: No Alcohol intake: former Patient Tobacco Use Status: Former Tobacco user Tobacco use type: Cigarette Smoked in Last 30 Days: No e-Cigarette/Vaping Use: Never Used Patient Interested in Nicotine Replacement: No Second Hand Smoke Exposure: No Use of substances other than those prescribed or required for medical reasons: No Currently Displaying Signs/Symptoms of Drug Intoxication Withdrawal: No Advance Directives: No Advance Directives Information Provided: Yes Nutrition Risks: No Nutritional Risk service: No Current occupational status: retired Cognitive needs: No Hearing needs: No Vision needs: No Meds Allergies Allergy/AdvReac Type Severity Reaction Status Date / Time No Known Allergies Allergy Verified 07/07/24 23:23 [No Known Allergies*] Active Medications: Current Medications Acetaminophen (Acetaminophen 325 Mg Tablet) 650 mg PO Q6H PRN PRN Reason: Pain, Mild (Pain Scale 1-3), fever or headache Amiodarone HCl (Amiodarone Hcl 200 Mg Tablet) 200 mg PO BID [facility] Last Admin: 07/09/24 08:23 Dose: 200 mg Apixaban (Apixaban 5 Mg Tablet) 5 mg PO BID [facility] Last Admin: 07/09/24 08:23 Dose: 5 mg Aspirin (Aspirin Enteric Coated 81 Mg Tablet.) 81 mg PO DAILY [facility] Last Admin: 07/09/24 08:23 Dose: 81 mg Atorvastatin Calcium (Atorvastatin Calcium 80 Mg Tablet) 80 mg PO DAILY [facility] Last Admin: 07/09/24 08:23 Dose: 80 mg Calcium Carbonate (Calcium Carbonate 750 Mg Tab.Chew) 750 mg PO Q4H PRN PRN Reason: Heartburn Furosemide (Furosemide 40 Mg/4 Ml Vial) 40 mg IVPUSH BID@0800,1700 [facility]; Protocol Last Admin: 07/09/24 08:26 Dose: 40 mg Glucose (Glucose Gel 15 Gm Gel..Gram.) 15 gm PO Q15M PRN; Protocol PRN Reason: per Hypoglycemia Standing Ord. Dextrose (D10) 250 mls @ 750 mls/hr IV Q15M PRN; Protocol PRN Reason: per Hypoglycemia Standing Ord. Insulin Human Lispro (Insulin Lispro 100 Unit/Ml 3 Ml Vial) 0 unit SUBCUT QIDACHS [facility]; Protocol Last Admin: 07/09/24 07:51 Dose: Not Given Magnesium Hydroxide (Milk Of Magnesia 30 Ml Oral.Susp) 30 ml PO DAILY PRN PRN Reason: Constipation Melatonin (Melatonin 3 Mg Tablet) 6 mg PO BEDTIME PRN PRN Reason: Insomnia Metoprolol Succinate (Metoprolol Succinate Er 25 Mg Tab.Er.24h) 25 mg PO DAILY [facility]; Protocol Last Admin: 07/09/24 08:33 Dose: Not Given Olanzapine (Olanzapine 10 Mg Tablet) 10 mg PO BEDTIME [facility] Last Admin: 07/08/24 20:18 Dose: 10 mg Ondansetron HCl (Ondansetron Hcl 4 Mg/2 Ml Vial) 4 mg IVPUSH Q8H PRN PRN Reason: Nausea and Vomiting Sacubitril/Valsartan (Sacubitril/Valsartan 49/51 1 Tab Tablet) 1 tab PO BID [facility]; Protocol Last Admin: 07/08/24 20:18 Dose: 1 tab Sertraline HCl (Sertraline Hcl 50 Mg Tablet) 50 mg PO DAILY [facility] Last Admin: 07/09/24 08:23 Dose: 50 mg Sodium Chloride (0.9 % Sodium Chloride Flush 3 Ml Syringe) [facility] Last Admin: 07/09/24 08:27 Dose: 3 ml Spironolactone (Spironolactone 25 Mg Tablet) 25 mg PO DAILY [facility]; Protocol Last Admin: 07/08/24 09:16 Dose: 25 mg Tamsulosin HCl (Tamsulosin Hcl 0.4 Mg Capsule) 0.4 mg PO BEDTIME [facility] Last Admin: 07/08/24 20:18 Dose: 0.4 mg Trazodone HCl (Trazodone Hcl 100 Mg Tablet) 200 mg PO BEDTIME [facility] Last Admin: 07/08/24 20:18 Dose: 200 mg Home Medications ?Medication ?Instructions ?Recorded ?Confirmed ?Last Taken ?Type trazodone 100 mg tablet 200 mg PO BEDTIME 03/19/24 07/08/24 07/07/24 History metoprolol succinate 50 mg 25 mg PO DAILY 04/17/24 07/08/24 07/07/24 History tablet,extended release 24 hr aspirin 81 mg tablet,delayed 81 mg PO DAILY 05/24/24 07/08/24 07/07/24 History release sertraline 50 mg tablet 50 mg PO DAILY 06/17/24 07/08/24 07/07/24 History olanzapine 10 mg tablet 10 mg PO BEDTIME 07/04/24 07/08/24 07/07/24 History spironolactone 25 mg tablet 25 mg PO DAILY 07/04/24 07/08/24 07/07/24 History Physical Exam 2 Vital Signs: Vital Signs: Last Vital Signs Temp 96.8 F 07/09/24 07:29 Pulse 61 07/09/24 08:21 Resp 18 07/09/24 07:29 BP 89/58 L 07/09/24 08:21 Pulse Ox 93 07/09/24 07:29 O2 Del Method Nasal Cannula 07/09/24 07:29 O2 Flow Rate 3 07/09/24 03:35 BMI result Body Mass Index 37.3 Const: General: comfortable and no acute distress O rientation/consciousness: patient oriented x3 HEENT: Other: Unremarkable Head: Yes normal to inspection Neck: Neck: Yes normal visual inspection Chest: Chest palpation & inspection: normal inspection of the chest Resp: Auscultation: clear to auscultation bilaterally Cardio: Palpation: normal PMI Heart sounds: S1 normal heart sound present, S2 normal heart sound present, no gallops, no murmurs and no rubs GI: Palpation (GI): Soft to palpation Back/Spine/Pelvis: Other: unremarkable Skin: General skin exam: no rashes or lesions noted Neuro: General: patient oriented x3 Extrem: General: Yes normal to inspection Psych: Mental Status: mental status grossly normal Objective Labs and Meds 07/09/24 05:40 07/09/24 05:40 Lab results: Laboratory Results - last 24 hr 07/08/24 07/08/24 07/08/24 11:10 16:11 20:45 WBC RBC Hgb Hct MCV MCH MCHC RDW Plt Count MPV Immature Gran % (Auto) Neut % (Auto) Lymph % (Auto) Cameron % (Auto) Eos % (Auto) Baso % (Auto) Lymph # (Auto) Cameron # (Auto) Eos # (Auto) Baso # (Auto) Abs Immat Gran (auto) Absolute Neuts (auto) Absolute Nucleated RBC Nucleated RBC % (auto) Sodium Potassium Chloride Carbon Dioxide Anion Gap BUN Creatinine Estim Creat Clear Calc Estimated GFR POC Glucose 101 124 H 135 H Random Glucose Calcium 07/09/24 07/09/24 05:40 07:27 WBC 6.2 RBC 5.10 Hgb 15.0 Hct 44.0 MCV 86.3 MCH 29.4 MCHC 34.1 RDW 14.5 Plt Count 236 MPV 12.0 Immature Gran % (Auto) 0.2 Neut % (Auto) 59.1 Lymph % (Auto) 25.1 Cameron % (Auto) 10.6 Eos % (Auto) 3.2 Baso % (Auto) 1.8 Lymph # (Auto) 1.6 Cameron # (Auto) 0.7 Eos # (Auto) 0.2 Baso # (Auto) 0.1 Abs Immat Gran (auto) 0.01 Absolute Neuts (auto) 3.7 Absolute Nucleated RBC 0.000 Nucleated RBC % (auto) 0.0 Sodium 140 Potassium 3.4 Chloride 105 Carbon Dioxide 25 Anion Gap 13 BUN 22 H Creatinine 1.17 Estim Creat Clear Calc 62.1 Estimated GFR > 60 POC Glucose 100 Random Glucose 105 Calcium 8.9 ECG Interpretation: EKGs reviewed. Last sinus EKGs from 21 of June. Subsequent EKG from 03 of July shows atrial flutter with a ventricular rate of 92/Min. Last EKG from 08 of July shows atrial flutter at 93/Min. Left bundle-branch morphology. PVCs. Assessment and Plan (1) Acute on chronic systolic and diastolic heart failure, NYHA class 3: Status: Acute (2) Paroxysmal atrial fibrillation: Status: Acute (3) NICM (nonischemic cardiomyopathy): Status: Acute Plan Suspect precipitation of congestive heart failure due to recurring atrial arrhythmias. Continue amiodarone. Continue Eliquis. We will schedule another cardioversion for tomorrow. NPO past midnight. Procedures Date of Service Date of Service: 07/09/24
[2024-07-09 11:28] LABS: Glucose, Whole Blood 94 mg/dL (60-115)
--- NOTE | 2024-07-09 12:57 | PM.DS ---
DS: Providers Provider Date of Service: 07/09/24 Date of admission: 07/08/24 04:37 Date of discharge: 07/09/24 Primary care physician: Gina Le MD Consults: 07/08/24 15:18 Consult to Cardiology Routine Consulting Provider: [facility] Reason for consultation: chf Has provider been notified: Yes DS: Diagnosis Discharge Diagnosis (1) Acute on chronic systolic and diastolic heart failure, NYHA class 3: Status: Acute (2) Paroxysmal atrial fibrillation: Status: Acute (3) NICM (nonischemic cardiomyopathy): Status: Acute DS: Summary Hospital Course Hospital Course: from initial hpi: 63 yo Martiniquais 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 He was recently discharged 07/05/24 for CHF exacerbation and treated with IV lasix x2 days with improvement. He states he was feeling well when he went home and after 1 day his sx returned. His notes that he has been taking his lasix and other medications, and has been going through a lot of cardiac testing outpatient. He also does consume a lot of fluids at times and does not watch his salt intake. He denies fever, chills, or sick contacts. He does have some mild chest soreness with a deep breath and mild nausea. No changes in urination. He was also treated for community-aquired pneumonia earlier this month and completed a course of abx. hospital course: Patient was admitted for acute on chronic systolic CHF and acute hypoxic respiratory failure due to paroxysmal atrial fibrillation. Was treated with IV Lasix, amiodarone, metoprolol, Eliquis. Was seen by Cardiology who recommended transfer to [facility] for possible ablation and ICD implantation. For diabetes was continued insulin sliding scale. For BPH was continued on Flomax. For mood disorder was continue sertraline and trazodone. For coronary disease was continued on Eliquis, statin, aspirin. Patient noted to have transaminitis likely nonalcoholic fatty liver disease versus hepatic congestion should monitor as outpatient. Patient will be transferred to [facility]. Time Attestation Discharge Coordination Time (in mins): 37 Quality: Safe Use of Opioids Does Pt have an Active Cancer Diagnosis on the Problem List?: No Quality: Stroke Does the patient have a stroke diagnosis?: No Physical Exam Vital Signs: Vital Signs: Last Vital Signs Temp 97.8 F 07/09/24 11:34 Pulse 97 07/09/24 11:34 Resp 18 07/09/24 11:34 BP 97/59 L 07/09/24 11:34 Pulse Ox 93 07/09/24 11:34 O2 Del Method Room Air 07/09/24 11:34 O2 Flow Rate 3 07/09/24 03:35 BMI result Body Mass Index 37.3 Const: General: comfortable and no acute distress Orientation/consciousness: patient oriented x3 HEENT: Other: Unremarkable Head: Yes normal to inspection Neck: Neck: Yes normal visual inspection Chest: Chest palpation & inspection: normal inspection of the chest Resp: Auscultation: clear to auscultation bilaterally Cardio: Palpation: normal PMI Heart sounds: S1 normal heart sound present, S2 normal heart sound present, no gallops, no murmurs and no rubs GI: Palpation (GI): Soft to palpation Back/Spine/Pelvis: Other: unremarkable Skin: General skin exam: no rashes or lesions noted Neuro: General: patient oriented x3 Extrem: General: Yes normal to inspection Psych: Mental Status: mental status grossly normal DS: Data Data Completed and Pending Completed studies during hospitalization [Text1]: Procedures [employer] of Cardiac Rhythm, Single (05/24/24) Ultrasonography of Heart with Aorta, Transesophageal (03/19/24) Labs on day of discharge: Laboratory Results - last 24 hr 07/08/24 07/08/24 07/09/24 16:11 20:45 05:40 WBC 6.2 RBC 5.10 Hgb 15.0 Hct 44.0 MCV 86.3 MCH 29.4 MCHC 34.1 RDW 14.5 Plt Count 236 MPV 12.0 Immature Gran % (Auto) 0.2 Neut % (Auto) 59.1 Lymph % (Auto) 25.1 Rabun % (Auto) 10.6 Eos % (Auto) 3.2 Baso % (Auto) 1.8 Lymph # (Auto) 1.6 Rabun # (Auto) 0.7 Eos # (Auto) 0.2 Baso # (Auto) 0.1 Abs Immat Gran (auto) 0.01 Absolute Neuts (auto) 3.7 Absolute Nucleated RBC 0.000 Nucleated RBC % (auto) 0.0 Sodium 140 Potassium 3.4 Chloride 105 Carbon Dioxide 25 Anion Gap 13 BUN 22 H Creatinine 1.17 Estim Creat Clear Calc 62.1 Estimated GFR > 60 POC Glucose 124 H 135 H Random Glucose 105 Calcium 8.9 07/09/24 07/09/24 07:27 11:24 WBC RBC Hgb Hct MCV MCH MCHC RDW Plt Count MPV Immature Gran % (Auto) Neut % (Auto) Lymph % (Auto) Rabun % (Auto) Eos % (Auto) Baso % (Auto) Lymph # (Auto) Rabun # (Auto) Eos # (Auto) Baso # (Auto) Abs Immat Gran (auto) Absolute Neuts (auto) Absolute Nucleated RBC Nucleated RBC % (auto) Sodium Potassium Chloride Carbon Dioxide Anion Gap BUN Creatinine Estim Creat Clear Calc Estimated GFR POC Glucose 100 94 Random Glucose Calcium Discharge Plan Discharge Anticipated Discharge Date/Time: 07/09/24 12:53 Patient Disposition: Xfer Acute [facility] Discharge Diagnosis: chf, afib Referrals: Gina Davey MD [Primary Care Provider] - 1 Week Discharge Medications: Continued atorvastatin 80 mg tablet 80 mg PO DAILY Qty: 90 3RF Eliquis 5 mg tablet 5 mg PO BID Qty: 180 0RF trazodone 100 mg tablet 200 mg PO BEDTIME metoprolol succinate 50 mg tablet extended release 24 hr 25 mg PO DAILY aspirin 81 mg tablet,delayed release (DR/EC) 81 mg PO DAILY Jardiance 10 mg Tablet 10 mg PO DAILY Qty: 30 0RF Entresto 49-51 mg Tablet 1 tab PO BID Qty: 60 0RF Protocol: Hold for SBP< HOLD for SBP < : 90 olanzapine 10 mg tablet 10 mg PO BEDTIME spironolactone 25 mg tablet 25 mg PO DAILY (DME) blood-glucose meter [OneTouch Ultra2 Meter] Misc See Rx Instructions .Route Qty: 1 0RF Rx Instructions: As directed (DME) OneTouch Ultra Test Strip See Rx Instructions .Route Qty: 100 2RF Rx Instructions: Use 1 test strip once a day (DME) lancets [SolarNOWTouch UltraSoft 2 Lancet] 30 gauge misc See Rx Instructions .Route Qty: 100 2RF Rx Instructions: Use 1 lancet once a day (DME) lancets [FreeStyle Lancets] 28 gauge misc See Rx Instructions .Route Qty: 100 3RF Rx Instructions: Use 1 lancet once a day tamsulosin [Flomax] 0.4 mg capsule 0.4 mg PO BEDTIME Qty: 30 2RF furosemide 40 mg tablet 40 mg PO BID Qty: 90 3RF sertraline 50 mg tablet 50 mg PO DAILY amiodarone 200 mg tablet 200 mg PO BID 30 Days Qty: 60 3RF Discharge Orders: Discharge Order (Routine); Ordered 07/09/24 Ordered By: Aram Diaz Diet: Advance to usual diet Activity on Discharge: As tolerated Stand Alone Forms: Patient Portal Discharge page Print Language: Martiniquais Care Plan Goals: manage afib, chf Health Concerns: afib, chf [place] of [place] [facility] [place] Assessment: see above
--- NOTE | 2024-07-09 13:23 | MHC.CM.PN ---
Patient dc'd, xfer to [facility] per RN.
[2024-07-09 16:20] LABS: Glucose, Whole Blood 116 mg/dL (60-115)
--- NOTE | 2024-07-09 17:47 | PC.NURSE ---
Report called to [facility], this Nurse spoke to receiving Nurse at [facility], all questions answered.
== END 2024-07-09 18:38 | disposition short-term general hospital (02) | DRG 291 ==
LOC: HO.ED 07-08 03:15 → HO.EDOVER 07-08 07:00 → HO.S3 07-08 07:41 → HO.EDOVER 07-09 09:58
PROVIDERS: Admitting Provider Student in an Organized Health Care Education/Training Program; Emergency Provider Emergency Medicine; PCP Internal Medicine; Visit Provider Internal Medicine
DX: I50.23 Acute on chronic systolic (congestive) heart failure (principal); J96.01 Acute respiratory failure with hypoxia; N40.0 Benign prostatic hyperplasia without lower urinary tract symptoms; E78.2 Mixed hyperlipidemia; I48.0 Paroxysmal atrial fibrillation; K76.1 Chronic passive congestion of liver; E11.9 Type 2 diabetes mellitus without complications; K76.0 Fatty (change of) liver, not elsewhere classified; F39 Unspecified mood [affective] disorder; I25.10 Atherosclerotic heart disease of native coronary artery without angina pectoris; Z95.5 Presence of coronary angioplasty implant and graft; Z87.891 Personal history of nicotine dependence; Z79.01 Long term (current) use of anticoagulants; Z79.82 Long term (current) use of aspirin; Z79.899 Other long term (current) drug therapy
CPT/HCPCS: 0241U; 36415; 71046; 80048; 80076; 82947; 83735; 83880; 84484; 85025; 85610; 86140; 93005; 99285; J1940

== ENCOUNTER → 2024-07-08 01:24 | Outpatient (BNV) | payer OTHER, SELFPAY | PROVIDERS: Admitting Provider Student in an Organized Health Care Education/Training Program; Emergency Provider Emergency Medicine; PCP Internal Medicine; Visit Provider Internal Medicine | DX: I48.92 Unspecified atrial flutter (principal) | CPT/HCPCS: 93010 ==

== ENCOUNTER → 2024-07-08 04:37 | Outpatient (BNV) | payer OTHER, SELFPAY | PROVIDERS: Admitting Provider Student in an Organized Health Care Education/Training Program; Emergency Provider Emergency Medicine; PCP Internal Medicine; Visit Provider Internal Medicine | DX: I50.43 Acute on chronic combined systolic (congestive) and diastolic (congestive) heart failure (principal); I48.0 Paroxysmal atrial fibrillation; I42.8 Other cardiomyopathies | CPT/HCPCS: 99239; 99499 ==

== ENCOUNTER → 2024-07-08 04:37 | Outpatient (BNV) | payer OTHER, SELFPAY | PROVIDERS: Admitting Provider Student in an Organized Health Care Education/Training Program; Emergency Provider Emergency Medicine; PCP Internal Medicine; Visit Provider Internal Medicine | DX: I50.43 Acute on chronic combined systolic (congestive) and diastolic (congestive) heart failure (principal); I48.0 Paroxysmal atrial fibrillation; I42.8 Other cardiomyopathies | CPT/HCPCS: 99223 ==

== ENCOUNTER 2024-07-29 | Outpatient (REF) | payer OTHER, SELFPAY ==
--- OUTSIDE RECORDS SUMMARY | 2024-08-05 15:07 | XMS_ITS | Continuity of Care Document ---
Author Organization [facility] ter Address [address] [place] [id number]- Care Team Providers Care Boiling Off Winder Name Role Phone Jamie Le MD, Be Prieto Primary Care Physician [id number] Date(s): 07/09/24 - 07/14/[address] [id number] Discharge Disposition: A-D/C Home Attending Physician: Franco Martinez MD Admitting Physician: Hang Arreola MD Referring Physician: Hang Arreola MD Encounter Type: Disch IP Allergies, Adverse Reactions, Alerts No Known Allergies Immunizations Given and Recorded Vaccine Date Status Refusal Reason pneumococcal 23-valent vaccine 05/21/19 Given influenza virus vaccine, inactivated 05/21/19 Give n Medications Acetaminophen Tablet 650 mg, Tablet, By Mouth, Every 4 hours, PRN for Pain , Mild, Temperature Greater than 100.5, Routine, 07/09/24 8:51:00 PM EST Start Date: 07/09/24 Stop Date: 07/15/24 Status: Discontinued Repeat number: 1 amiodarone 200 mg oral tablet TAKE 1 TABLET BY MOUTH EVERY DAY Start Date: 07/12/24 Status: Ordered Repeat number: 1 atorvastatin 40 mg oral tablet 1 tablet = 40 mg, By Mouth, Daily, # 30 tablet, 5 Refills, Maintenance, 07/14/24 12:24:00 PM EST, Tablet, [facility], Partial fill upon patient request if the prescription is for a schedule II opioid drug., 159, cm, 07/14/24 11:43:00 EST, Height, 89.4, kg, 07/09/24 18:39:00 EST, Dry Weight Start Date: 07/14/24 Status: Ordered Quantity: 30.0 Unit: tablet Repeat number: 6 Eliquis 5 mg oral tablet TAKE 1 TABLET BY MOUTH TWICE A DAY Start Date: 07/12/24 Status: Ordered Repeat number: 1 Entresto 24 mg-26 mg oral tablet 1 tablet, By Mouth, 2 times a day, # 60 tablet, 0 Refills, Maintenance, 07/14/24 12:24:00 PM EST, Tablet, [facility], Partial fill upon patient request if the prescription is for a schedule II opioid drug., 1 tablet By Mouth 2 times a day, 159, cm, 07/14/24 11:43:00 EST, Height, 89.4, kg, 07/09/24 18:39:00 EST, Dry Weight Start Date: 07/14/24 Status: Ordered Quantity: 60.0 Unit: tablet Repeat number: 1 Jardiance 10 mg oral tablet TAKE 1 TABLET BY MOUTH EVERY DAY Start Date: 07/12/24 Status: Ordered Repeat number: 1 Metoprolol Succinate ER 25 mg oral tablet, extended release TAKE 1 TABLET BY MOUTH EVERY DAY Start Date: 07/12/24 Status: Ordered Repeat number: 1 olanzapine 10 mg oral tablet TAKE 1 TABLET BY MOUTH EVERYDAY AT BEDTIME Start Date: 07/12/24 Status: Ordered Repeat number: 1 oxyCODONE 5 mg oral tablet 5 mg, Tablet, By Mouth, Every 6 hours, PRN for Pain , Moderate, Routine, 07/13/24 12:08:00 PM EST Start Date: 07/13/24 Stop Date: 07/15/24 Status: Discontinued Repeat number: 1 sertraline 50 mg oral tablet TAKE 1 TABLET BY MOUTH EVERY DAY IN THE MORNING Start Date: 07/12/24 Status: Ordered Repeat number: 1 tamsulosin 0.4 mg oral capsule TAKE 1 CAPSULE BY MOUTH EVERYDAY AT BEDTIME Start Date: 07/12/24 Status: Ordered Repeat number: 1 traZODone 100 mg oral tablet TAKE 2 TABLETS BY MOUTH EVERY DAY AT BEDTIME Start Date: 07/12/24 Status: Ordered Repeat number: 1 Problem List Condition Confirmation Course Effective Dates Status Health St [facility]us Informant Severe obesity (BMI 35.0-39.9) with comorbidity Confirmed Active Results Radiology Reports * Exam Date Time Procedure Performing Provider Status 07/13/24 4:41 AM Chest 2 Views Frontal and Lat Alesha Hoover; Debora (Verified) Notes: (Chest 2 Views Frontal and Lat) Reason For Exam: Postop RESULT: Chest 2 Views Frontal and Lat Chest 2 Views Frontal and Lat Reason: Postop; Clinical Question(s): Line Placement; Pneumothorax; Special Instructions: Patient may go unmonitored. Please keep film at back desk; Order Comment: COMPARISON: 07/12/2024 FINDINGS: LINES AND TUBES: Triple-lead left subclavian pacer/AICD wires are intact. LUNGS AND PLEURA: Low lung volumes with mild basilar atelectasis. Lungs are otherwise clear with no consolidation. No pleural effusion. No pneumothorax. HEART, MEDIASTINUM AND SUKHI: Moderate prominence of the cardiac silhouette. Normal mediastinal and hilar contour. BONES AND SOFT TISSUES: No acute abnormality. IMPRESSION: No acute abnormality. WSN: [id number] Ordering Physician: Jan Duong Dictated By: Alex Parson MD Dictated Date/Time: 07/13/24 7:07 am Reviewed By: Alex Parson MD Signed By: Alex Parson MD Signed Date/Time: 07/13/24 7:07 am Transcribed By: KEERTHI Transcribed Date/Time: 07/13/24 7:00 am * Exam Date Time Procedure Performing Provider Status 07/12/24 1:09 PM Chest Portable Brady Seymour; Debora (V erified) Notes: (Chest Portable) Reason For Exam: Line Placement RESULT: Chest Portable Chest Portable COMPARISON: 07/03/2024 INDICATION / CLINICAL QUESTION: ICD placement FINDINGS: LINES AND TUBES: Triple-lead left subclavian pacer/AICD wires are intact and in typical position. LUNGS AND PLEURA: Left moderate left retrocardiac opacity. No pleural effusion. No pneumothorax. HEART, MEDIASTINUM AND SUKHI: Mild to moderate cardiomegaly. BONES AND SOFT TISSUES: No acute abnormality. IMPRESSION: Left retrocardiac opacity, likely postprocedural atelectasis. WSN: [id number] Ordering Physician: Jan Duong Dictated By: Frandy Liriano MD Dictated Date/Time: 07/12/24 1:19 pm Reviewed By: Frandy Liriano MD Signed By: Frandy Liriano MD Signed Date/Time: 07/12/24 1:19 pm Transcribed By: KEERTHI Transcribed Date/Time: 07/12/24 1:17 pm * Exam Date Time Procedure Performing Provider Status 07/11/24 10:03 AM Chest 2 Views Frontal and Lat Justice De La Vega; Auth (Verified) Notes: (Chest 2 Views Frontal and Lat) Reason For Exam: CHF RESULT: Chest 2 Views Frontal and Lat Chest 2 Views Frontal and Lat Reason: CHF; Clinical Question(s): CHF COMPARISON: None. FINDINGS: LINES AND TUBES: None. LUNGS AND PLEURA: Clear lungs. Normal pulmonary vascularity. No pleural effusion. No pneumothorax. HEART, MEDIASTINUM AND SUKHI: Cardiomegaly Aortic atherosclerosis BONES AND SOFT TISSUES: No acute abnormality. IMPRESSION: No acute abnormality. WSN: [id number] Ordering Physician: Jan Duong Dictated By: Emily Oglesby MD Dictated Date/Time: 07/11/24 3:18 pm Reviewed By: Emily Oglesby MD Signed By: Emily Oglesby MD Signed Date/Time: 07/11/24 3:18 pm Transcribed By: KEERTHI Transcribed Date/Time: 07/11/24 3:17 pm Vital Signs Most recent to oldest [Reference Range]: 1 2 3 Height 159 cm (07/14/24 11:43 AM) 159 cm (07/14/24 8:20 AM) 159 cm (07/13/24 5:04 PM) Weight 90.9 kg (07/13/24 6:10 AM) 91 kg (07/13/24 5:00 AM) 96.4 kg (07/12/24 5:02 AM) Oxygen Saturation [94-100 %] 96 % (07/14/24 11:43 AM) 95 % (07/14/24 8:20 AM) 95 % (07/14/24 4:00 AM) Pulse Rate [55-90 bpm] 59 bpm (07/14/24 11:43 AM) 66 bpm (07/14/24 8:20 AM) 66 bpm (07/14/24 4:00 AM) Body Mass Index [18.5-24.99 kg/m2] 38.13 kg/m2 *>HHI* (07/12/24 5:02 AM) 35.36 kg/m2 *>HHI* (07/09/24 6:16 PM) Blood Pressure [90-138/55-84 mm Hg] 91/60mm Hg (07/14/24 11:43 AM) 99/63mm Hg (07/14/24 8:20 AM) 97/63mm Hg (07/14/24 4:00 AM) Respiratory Rate [16-30 br/min] 18 br/min (07/14/24 11:43 AM) 18 br/min (07/14/24 10:44 AM) 18 br/min (07/14/24 10:44 AM) Temperature [96.8-100.4 DegF] 97.3 DegF (07/14/24 11:43 AM) 97.5 DegF (07/14/24 8:20 AM) 98.1 DegF (07/14/24 4:00 AM) Liters per Minute 3 L/min (07/13/24 6:09 AM) 3 L/min (07/13/24 5:32 AM) 3 L/min (07/13/24 4:00 AM) Mode of Delivery (Oxygen) Room air (07/14/24 11:43 AM) Room air (07/14/24 8:20 AM) Room air (07/14/24 4:00 AM) Blood pressure sites Arm, left (07/14/24 11:43 AM) Arm, right (07/14/24 8:20 AM) Arm, right (07/14/24 4:00 AM) Temperature Route Oral (07/14/24 11:43 AM) Oral (07/14/24 8:20 AM) Oral (07/14/24 4:00 AM) Dry Weight 89.4 kg (07/09/24 6:16 PM) Weight Obtained Via Bed scale (07/13/24 6:10 AM) Standing scale (07/13/24 5:00 AM) Bed scale (07/12/24 5:02 AM) Dry Weight Obtained Via Standing scale (07/09/24 6:16 PM) Note * Gayle Oropeza RN: PERFORM Event Display: Discharge/Transfer Note Hospital Authored Date: [id number] Nursing Discharge Note Entered On: 07/14/2024 13:22 EST Performed On: 07/14/2024 13:22 EST by Gayle Oropeza RN Nursing Discharge Note 2 Discharge Time : 07/14/2024 13:45 EST Discharge Level of Care at Discharge : Home/Skilled Nursing/Foster Care Patient Left Unit Via : Wheelchair Patient Accompanied Off Unit with : Significant other DC Instructions Provided & Signed by Pt : Yes Patient Understands D/C Instructions : Yes Patient Instructions Discharge Signed : Yes Did Pt have Specialty Bed or Wound Vac : No Gayle Oropeza RN - 07/14/2024 13:22 EST * Molly Longo DO: MODIFY, PERFORM, MODIFY, MODIFY Event Display: Discharge/Transfer Note Hospital Authored Date: Patient: ??YUNIOR GLOVER ? Age:??63 Years?Sex:??Male?:??1960?? Patient Information Discharge Location: Primary Care Physician: Jamie Le MD , Be Prieto Admit Date/Time: 07/09/2024 18:15 Discharge Disposition Discharge Disposition: Home: No Services Discharge Diagnosis Hematoma of implantable cardioverter-defibrillator (ICD) pocket, initial encounter (T82.689O) Mood disorder (F39) BPH (benign prostatic hyperplasia) (N40.0) HLD (hyperlipidemia) (E78.5) CAD (coronary artery disease) (I25.10) Acute exacerbation of CHF (congestive heart failure) (I50.9) Atrial fibrillation and flutter (I48.91) Transaminitis (R74.01) _ Discharge Medications amiODARONE (amiodarone 200 mg oral tablet)?TAKE 1 TABLET BY MOUTH EVERY DAY apixaban (Eliquis 5 mg oral tablet)?TAKE 1 TABLET BY MOUTH TWICE A DAY Atorvastatin (atorvastatin 40 mg oral tablet)?1?tab(s)?40?Milligram?By Mouth?Daily empagliflozin (Jardiance 10 mg oral tablet)?TAKE 1 TABLET BY MOUTH EVERY DAY Metoprolol (Metoprolol Succinate ER 25 mg oral tablet, extended release)?TAKE 1 TABLET BY MOUTH EVERY DAY Olanzapine (olanzapine 10 mg oral tablet)?TAKE 1 TABLET BY MOUTH EVERYDAY AT BEDTIME sacubitril-valsartan (Entresto 24 mg-26 mg oral tablet)?1?tab(s)?By Mouth?2 times a day Sertraline (sertraline 50 mg oral tablet)?TAKE 1 TABLET BY MOUTH EVERY DAY IN THE MORNING Tamsulosin (tamsulosin 0.4 mg oral capsule)?TAKE 1 CAPSULE BY MOUTH EVERYDAY AT BEDTIME Trazodone (traZODone 100 mg oral tablet)?TAKE 2 TABLETS BY MOUTH EVERY DAY AT BEDTIME ? 72 Hour Antibiotic History Stopped Antibiotics Stop Date/Time Last Administered First Administered ceFAZolin??2 Gm, IV Push, Every 8 hours 07/13/2024 05:00 07/13/2024 01:47 07/12/2024 16:39 ? Medications Started None Medications Discontinued Holding spironolactone and Lasix until re-evaluation Doses Changed Atorvastatin 80mg to 40mg Entresto 49-51 to 24-26 Allergies Allergies ?(Active and Proposed Allergies Only) NKA? (Severity: Unknown severity, Onset: Unknown) ? PCP Follow-Up/Heads-Up 1. Patient had a BiV-ICD and ablation 07/12 in setting acute on chronic heart failure exacerbation--please facilitate cardiology follow-up ?? Hospital Course Mr. Glover 63 y.o. with history of Afib/flutter, HLD, HTN, DM2, depression/anxiety, GERD, non ischemic cardiomyopathy, CHF (LVEF 10-15%), and BPH who was transferred from [facility] to [facility] 07/09 for ablation of atrial flutter and biventricular ICD placement 07/12 in the setting of Aon C HFrEF. Hospitalization complicated by hypotension during procedure requiring pressors, they were weaned successfully as patient was removed from anesthesia. Transferred to the [facility] service for monitoring. Also complicated by hematoma that was non tender, treated with pressure dressing. Patientweaned to room air on 07/13, remained hemodynamically stable without chest pain, and voided after catheter removal. Considered stable for discharge. ?? Afib/flutter s/p ablation BiV ICD placement Hypotension, improved ??s/p ablation and placement of BiV ICD 07/12 ??During procedure hypotensive requiring pressor support, weaned off within hours and normotensive ??Post procedural EKG normal paced rhythm, ant and lat CXR no acute abnormality good ICD position. ??Interogated 07/13, working well ??Currently no chest pain, dyspnea. ?? Plan: - continue Amiodarone 200mg BID ??- continue Eliquis 5mg BID ??- will follow up with EP in 7-10 days ?? Hematoma Hematoma over ICD placement site reaching 5 cm inferior ??Non tender, stable ?? Plan: ??- Pressure dressing removed - Patient to remove bandages tomorrow and keep dry ??- Continue anticoagulation, no signs of acutely worsening hematoma ?? Acute on Chronic Heart Failure Exacerbation, resolved Patient presented to outside hospital w/ shortness of breath found to be in acute on chronic HF exacerbation likely secondary to afib/aflutter, transferred to [facility] for ablation. Echo Jun 2023 w/ EF 20-25%; recent echo with EF 10-15% per previous notes Euvolemic on exam today ?? Plan: - continue Metoprolol 25mg daily, Jardiance - Restart Entresto at 24-26 dosing BID - Jardiance non-formulary, can resume on discharge - Hold Furosemide 40mg BID, will evaluate for need to restart - Hold Spironolactone 25mg daily, will evaluate for need to restart ?? Hx Non-Ischemic Cardiomyopathy ??Hx Hypertension, Hx Hyperlipidemia Unclear history of CAD based on previous notes; last cath in our records 2018 was w/o CAD; note from February 2024 states history of nonischemic cardiomyopathy with last cath 2019 no CAD; per patient andfamily has never had stent placed Lipid panel: Cholesterol 101 LDL 42 HDL 35 ?? Plan: - stopped ASA 81 daily ??- decrease Atorvastatin to 40mg nightly ??- may consider decrease/discontinue statin at outpatient follow up ?? Presumed History of CKD ??Baseline Cr 1.1-1.3 per outside chart ??Cr elevated to 1.45, improved to 1.03 ?? BPH ??Continue home tamsulosin 0.4mg ?? Anxiety/Depression ??Continue home Sertraline 50mg daily, Trazodone 200mg daily at bedtime, Zyprexa 10mg daily at bedtime ? Objective Measurements?? Height: 159 cm (07/14/24) Weight: 90.9 kg (07/13/24) Dry Weight: 89.4 kg (07/09/24) Body Mass Index:??38.13 kg/m2??Critical (07/12/24) ? Vital Signs?? Temperature: 97.5 DegF (07/14/24 08:20:00) Temperature Route: Oral (07/14/24 08:20:00) Pulse Rate: 66 bpm (07/14/24 08:20:00) Respiratory Rate: 18 br/min (07/14/24 10:44:00) Respiratory Rate: 18 br/min (07/14/24 10:44:00) Systolic Blood Pressure: 99 mm Hg (07/14/24 08:20:00) Diastolic Blood Pressure: 63 mm Hg (07/14/24 08:20:00) Blood pressure sites: Arm, right (07/14/24 08:20:00) Mean Arterial Pressure: 75 mm Hg (07/14/24 08:20:00) Pulse Pressure: 36 mm Hg (07/14/24 08:20:00) Oxygen Saturation: 95 % (07/14/24 08:20:00) Mode of Delivery (Oxygen): Room air (07/14/24 08:20:00) Early Warning Score: 5 (07/14/24 10:44:31) ? Intake/Output? 07/09 18:15 07/14 07:00 07/13 07:00 07/12 07:00 07/11 07:00 ?? 07/14 11:41 07/14 11:41 07/14 06:59 07/13 06:59 07/12 06:59 Intake ? 2528 ?0 ?120 ?778 ?600 Output ? 1330 ?0 ?0 ? 1330 ?0 Net Total ? 1198 ?0 ?120 ? -552 ?600 ? Urine Count ? 19 ?0 ?4 ?0 ?7 ? . Physical Exam Constitutional: Alert, in no distress. Mental Status: Oriented to person, place and time. Head: Normocephalic. Eyes: Pupils are equal, round and reactive to light. Extraocular muscles intact. Respiratory: Clear to auscultation. No wheezing, rales or rhonchi. Cardiovascular: S1 S2 regular. No murmurs, rubs or gallops. Gastrointestinal: Abdomen soft, non-tender, non-distended. Normal bowel sounds. No pulsatile mass. No hepatosplenomegaly. Skin: large hematoma??spread across R chest; No rashes or lesions. No petechiae or purpura.?? Psychiatric: Normal mood and affect Consultants Electrophysiology Pending Results Add On Lab Order ordered on 07/10/2024 Add On Lab Order ordered on 07/10/2024 Add On Lab Order ordered on 07/12/2024 Patient Education Titles WebMD Ignite Patient Education - Biventricular Pacemaker and ICD (Biventricular ICD)?? Web[employer] Patient Education - Discharge Instructions for Implantable Cardioverter-Defibrillator (ICD)?? Web[employer] Ignite Patient Education - Living with an Implantable Cardioverter Defibrillator (ICD)?? Web[employer] Ignite Patient Education - Cardiac Catheterization, Bleeding or Hematoma After?? Web[employer] Ignite Patient Education - Heart Failure?? Follow-Up Appointments Added Follow Up ?Time Frame ?Comments Jamie Le MD , Be Prieto?1 to 2 weeks Patient Instructions You presented from [facility] to [facility] on 07/09??due to??exacerbation??of your??congestive heart failure??which may have been due to the top chambers of your heart??not beating appropriately.?? You had an ablation (they went in and burned off the heart cells generatingthe bad heart rhythm that [place] believed caused your heart failure exacerbation) and??biventricular ICD placed 07/12. During the procedure, your blood pressure dropped requiring pressors (medications that raise blood pressure) that we were able to stop as the anesthesia wore off. You subsequentlydeveloped a hematoma (accumulation of blood beneath the skin) at the site, requiring a special dress ing that was removed today (07/14). Your vital signs are stable and you are ready for discharge.? To do: 1.??Follow up?with concession cashier in the next 2-3 days for hematoma check--they should callyou 07/15 but if they don't, please call [place] [facility] at??[phone] 2.??Follow up?with??PCP??within 1-2 weeks 3.??Hold??lasix and spironolactone until follow up 4.??Keep??bandage dry; you may remove it tomorrow 5.??Follow??the following instructions for wound care/ICD placement: ? 1. Keep chest incision site dry for 7 days. ? 2. No driving for 3 weeks. ? 3. No lifting more than 10 lbs with left arm for 1 month. ? 4. No reaching behind back with??left arm??or raising left arm above shoulder level for 1 month. ? 5. Follow up in EP clinic in 7-10 days for incision site check.? 6. Wear left arm sling when sleeping for 2 weeks.?? Results Discharge Labs BLOOD COUNT & DIFF WBC 11.7 k/mm3 (High)?? 07/14/2024 03:58 RBC 4.27 m/mm3 (Low)?? 07/14/2024 03:58 Hgb 12.4 Gm/dL (Low)?? 07/14/2024 03:58 Hct 38.2 % (Low)?? 07/14/2024 03:58 MCV 89.5 femtoliters ()?? 07/14/2024 03:58 MCH 29.0 pg ()?? 07/14/2024 03:58 MCHC 32.5 Gm/dL (Low)?? 07/14/2024 03:58 Platelet Count 198 k/mm3 ()?? 07/14/2024 03:58 RDW-SD 47.8 femtoliters (High)?? 07/14/2024 03:58 MPV 12.3 femtoliters ()?? 07/14/2024 03:58 Nucleated RBC (Automated) 0.0 #/100 WBC'S ()?? 07/14/2024 03:58 Abs. NRBC 0.0 k/mm3 ()?? 07/14/2024 03:58 Abs. Neut 4.8 k/mm3 ()?? 07/10/2024 07:36 Abs. Lymph 1.4 k/mm3 ()?? 07/10/2024 07:36 Abs. Howard 0.6 k/mm3 ()?? 07/10/2024 07:36 Abs. Eo 0.2 k/mm3 ()?? 07/10/2024 07:36 Abs. Baso 0.1 k/mm3 ()?? 07/10/2024 07:36 Neut % 67.1 % ()?? 07/10/2024 07:36 Lymph % 19.6 % ()?? 07/10/2024 07:36 Howard % 8.8 % ()?? 07/10/2024 07:36 Eos % 2.5 % ()?? 07/10/2024 07:36 Baso % 1.7 % ()?? 07/10/2024 07:36 Imm Gran 0.3 % ()?? 07/10/2024 07:36 Abs. Imm Gran 0.0 k/mm3 ()?? 07/10/2024 07:36 ?? CARDIAC Nt-Probnp 887 pg/mL (High)?? 07/10/2024 07:40 ? CHEM GENERAL Sodium 138 mmol/L ()?? 07/14/2024 07:50 Potassium 3.8 mmol/L ()?? 07/14/2024 07:50 Chloride 102 mmol/L ()?? 07/14/2024 07:50 Bicarbonate Level 26 mmol/L ()?? 07/14/2024 07:50 Anion Gap 10 ()?? 07/14/2024 07:50 Glucose Level 112 mg/dL (High)?? 07/14/2024 07:50 Glucose, POC 156 mg/dL (High)?? 07/13/2024 05:57 Hemoglobin A1C (Monitoring) 6.0 % (High)?? 07/10/2024 07:36 BUN 17 mg/dL ()?? 07/14/2024 07:50 Creatinine-Blood 0.99 mg/dL ()?? 07/14/2024 07:50 Estimated GFR Creatinine 85 ML/MIN/1.73 M2 ()?? 07/14/2024 07:50 Calcium 8.8 mg/dL ()?? 07/14/2024 07:50 Phosphorus 3.4 mg/dL ()?? 07/12/2024 05:13 Magnesium 1.9 mg/dL ()?? 07/14/2024 07:50 Protein, Total 6.2 Gm/dL ()?? 07/13/2024 07:32 Albumin 3.6 Gm/dL ()?? 07/13/2024 07:32 AG Ratio 1.4 ()?? 07/13/2024 07:32 Alkaline Phosphatase 60 units/L ()?? 07/13/2024 07:32 AST (SGOT) 49 units/L (High)?? 07/13/2024 07:32 ALT (SGPT) 24 units/L ()?? 07/13/2024 07:32 Bilirubin, Total 0.6 mg/dL ()?? 07/13/2024 07:32 Bilirubin, Direct 0.1 mg/dL ()?? 07/12/2024 05:13 Bilirubin, Indirect 0.2 mg/dL ()?? 07/12/2024 05:13 Lactate 2.0 mmol/L ()?? 07/12/2024 13:39 ?? COAG POC ACT-LR 163.0 seconds ()?? 07/12/2024 09:46 ? ENDOCRINE/TUMOR MARKER TSH 3.81 uIU/mL ()?? 07/10/2024 07:40 ? LIPID STUDIES Cholesterol 101 mg/dL ()?? 07/12/2024 13:39 Triglycerides 121 mg/dL ()?? 07/12/2024 13:39 HDL Cholesterol 35 mg/dL (Low)?? 07/12/2024 13:39 LDL Cholesterol 42 mg/dL ()?? 07/12/2024 13:39 Non HDL Cholesterol 66 mg/dL ()?? 07/12/2024 13:39 ? URINE OTHER Est Creatinine Clearance 58.90 mL/min ()?? 07/14/2024 08:30 ? VIROLOGY COVID-19 PCR Specimen Source NASAL ()?? 07/12/2024 17:30 COVID-19 PCR Result NEGATIVE ()?? 07/12/2024 17:30 ?Patient seen and discussed with??Dr. Heather DO. ?? Molly Longo, DO Internal Medicine PGY-1 Available on [employer] ? 20??minutes spent on discharge * Sudhir Romero DO: PERFORM Event Display: Discharge/Transfer Note Hospital Authored Date: Attending Attestation:??I have seen and evaluated this patient. ??I have discussed the case and itsmanagement with the resident and agree with the findings and plan as documented in the resident's note.?? * Gayle Oropeza RN: PERFORM Event Display: Patient Education/Instruction Authored Date: Inpatient Adult Discharge Instructions. [address] [address] Name: YUNIOR GLOVER : 1960?? Visit: 07/09/2024 18:15?? Current Date: 07/14/2024 12:59 ?? Account: [id number]?? Inpatient Adult Discharge Instructions We would like to thank you for allowing us to assist you with your healthcare needs. The following includes patient education materials and information regarding your injury/illness. Our entire staffstrives to provide an excellent experience for our patients and their families. PLEASE ENSURE YOU FOLLOW-UP PER THE INSTRUCTIONS BELOW! ?? YOUR OPINION IS IMPORTANT TO US! Please complete the survey you may receive by mail or email. Your feedback will be used to make improvements to the healthcare experiences of our patients and their families. Surveys are administered by [employer]And[employer]. ?? If further treatment with your primary care physician or another doctor is recommended, it is important for you to keep the appointment. Call your primary care physician or return to the Emergency Department immediately if your condition worsens, fails to improve, or new symptoms develop. If you need to find a doctor, you can call [facility] for a referral at [phone] or toll free at [phone]) or log in to [email or web address].. ?? [facility], in keeping with [facility] guidance, no longer requires face masks for staff, patientsor visitors in most situations. Similiar to time spent indoors at other locations, there is the chance that you were exposed to repiratory viruses during your time with us (such as flu or COVID-19). If you develop symptoms concerning for a viral respiratory infection, please seek testing (and treatment if indicated) from your medical provider or home test kit. ?? You can view and manage your care through the patient portal or by using a health care mela of your choosing. [employer] is a website that allows you to securely view your medical information including your hospital discharge summary, office visit summaries, medications and follow-up visits. You can also request appointments, renew medications, and request access to your medical information using a health care mela of your choosing, or just ask a question. You can enroll at [email or web address] or register during your next office visit. You have been discharged from [facility], Patient Care Unit: M6??. If you have any questions regarding these instructions, including results of studies pending, afteryou leave, please call us and we will be happy to assist you 06/03. [facility] Your Care Team Attending Physician Michelle CHAUDHRY, Franco [place]?? Consulting Providers Franco Martinez MD?? Discharging Providers Molly Longo DO Your Diagnosis Hematoma of implantable cardioverter-defibrillator (ICD) pocket, initial encounter Acute exacerbation of CHF (congestive heart failure) Atrial fibrillation and flutter BPH (benign prostatic hyperplasia) CAD (coronary artery disease) HLD (hyperlipidemia) Mood disorder Transaminitis Tests Performed Below is a partial list of the tests performed during your hospitalization. You may have had other tests and procedures not included in this list. Please discuss all test results with your provider. Alk Phos ALT AST Basic Metabolic Panel Bilirubin Total + Direct BUN Calcium Level CBC CBC w/ Differential Comprehensive Metabolic Panel COVID-19 (2019 Novel Coronavirus) PCR Creatinine Electrolytes Glucose Level GLUCOSE POC HEMOGLOBIN A1C Lactate Level LFT's LIPID PANEL Magnesium Level Phosphorus Level POC Hemochron ACT-LR PROBNP TSH CXR W/ Frontal and Lat XR Chest 2 Views Frontal and Lat XR Chest Portable ALT?? AST?? Add On Lab Order?? Alk Phos?? B Type Natriuretic Peptide (PROBNP)?? BUN?? Basic Metabolic Panel?? Bilirubin Total + Direct?? CBC?? CBC w/ Differential?? COVID-19 (2019 Novel Coronavirus) PCR?? Calcium Level?? Comprehensive Metabolic Panel?? Creatinine?? Electrolytes?? Glucose Level?? Glucose POC?? Hemoglobin A1C (Monitoring) (HEMOGLOBIN A1C)?? Hepatic Function Panel (LFT's)?? Lactic Acid Level (Lactate Level)?? Lipid Panel?? Magnesium Level?? POC ACT-LR (POC Hemochron ACT-LR)?? Phosphorus Level?? TSH?? Chest 2 Views Frontal and Lat (XR Chest 2 Views Frontal and Lat)?? Chest Portable (XR Chest Portable)?? Primary Care Provider Jamie Le MD , Be Prieto? Advance Directive Health Care Proxy on File No Discharge Vitals Temperature: 97.3 DegF Height: 159 cm Pulse Rate: 59 bpm Weight: 90.9 kg Respiratory Rate: 18 br/min Body Mass Index:??38.13 kg/m2??Critical Systolic Blood Pressure: 91 mm Hg Body surface area: 2.06 Diastolic Blood Pressure: 60 mm Hg ?? Oxygen Saturation: 96 % ?? Studies Pending All studies ordered during this hospital stay have been completed unless listed below. Please discuss all pending results with your provider listed above in these instructions. ?? Add On Lab Order?? What to do next Instructions From Your Doctor You presented from [facility] to [facility] on 07/09??due to??exacerbation??of your??congestive heart failure??which may have been due to the top chambers of your heart??not beating appropriately.?? You had an ablation (they went in and burned off the heart cells generatingthe bad heart rhythm that [place] believed caused your heart failure exacerbation) and??biventricular ICD placed 07/12. During the procedure, your blood pressure dropped requiring pressors (medications that raise blood pressure) that we were able to stop as the anesthesia wore off. You subsequentlydeveloped a hematoma (accumulation of blood beneath the skin) at the site, requiring a special dress ing that was removed today (07/14). Your vital signs are stable and you are ready for discharge.? To do: 1.??Follow up?with concession cashier in the next 2-3 days for hematoma check--they should callyou 07/15 but if they don't, please call [place] [facility] at??[phone] 2.??Follow up?with??PCP??within 1-2 weeks 3.??Hold??lasix and spironolactone until follow up 4.??Keep??bandage dry; you may remove it tomorrow 5.??Follow??the following instructions for wound care/ICD placement: ? 1. Keep chest incision site dry for 7 days. ? 2. No driving for 3 weeks. ? 3. No lifting more than 10 lbs with left arm for 1 month. ? 4. No reaching behind back with??left arm??or raising left arm above shoulder level for 1 month. ? 5. Follow up in EP clinic in 7-10 days for incision site check.? 6. Wear left arm sling when sleeping for 2 weeks.? Usted se present?? desde [facility] al [facility] el 26 de re debido a kylah exacerbaci??n de brooks insuficiencia card??edgar congestiva, que puede haberse debido a que las c??maras superiores de brooks coraz??n no lat??an adecuadamente. Le realizaron kylah ablaci??n (introdujeron y quemaron las c??lulas card??acas que generaban el mal ritmo card??aco que [place] cre??a que caus?? la exacerbaci??n de brooks insuficiencia card??edgar) y le colocaron un desfibrilador autom??vinita implantable biventricular el 29 de . Sim el procedimiento, brooks presi??n arterial baj?? y requiri?? presores (medicamentos que aumentan la presi??n arterial) que pudimos suspender cuando desapareci?? el efecto de la anestesia. Posteriormente desarroll?? un hematoma (acumulaci??n de mary lou debajo de la piel) en el sitio, que requiri?? un vendaje especial que se retir?? hoy (1 de diciembre). Paulette signos vitales est??n estables y est?? listo para el dayana. ?? Qu?? hacer: 1. Marian un seguimiento con un electrofisi??logo en los pr??ximos 2 a 3 d??as para un control del hematoma. Deber??an llamarlo el 2 de diciembre, moises si no lo hacen, llame a [place] and [facility] al [phone] 2. Marian un seguimiento con un m??dico de atenci??n primaria dentro de 1 a 2 semanas 3. No le d?? Lasix ni espironolactona hasta el seguimiento 4. Mantenga el vendaje seco; puede quitarlo ma??be 5. Siga las siguientes instrucciones para el cuidado de la herida/colocaci??n del DCI: 1. Mantenga el sitio de la incisi??n en el pecho seco sim 7 d??as. 2. No conduzca sim 3 semanas. 3. No levantar m??s de 10 libras con el brazo john sim 1 mes. 4. No alcanzar la espalda con el brazo john ni levantar el brazo john por encima del nivel del hombro sim 1 mes. 5. Seguimiento en la cl??matthew de EP en 7-10 d??as para control del sitio de la incisi??n. 6. Usar cabestrillo para el brazo john cuando duerma sim 2 semanas. ?? Orders? 07/14/24 12:56:00 EST?? You Need to Schedule the Following Appointments Follow Up with??Jamie Le MD , Be Prieto When:??Within 1 to 2 weeks Where: [address] [place] [address]- Discharge Medications MONA YUNIOR :1960 Visit Date:07/09/2024 Medications: Please continue your medications until treatment is completed or stopped by your provider. Medications not listed below should be discontinued. Discuss any questions related to medications with your provider. What How Much When Instructions Next Dose Changed Atorvastatin (atorvastatin 40 mg oral tablet) 1 tab(s) Oral Daily Pickup at [facility] 3 07/15/24 9am Changed Metoprolol (Metoprolol Succinate ER 25 mg oral tablet, extended release) TAKE 1 TABLET BY MOUTH EVERY DAY ?? 07/15/24 9am Changed Olanzapine (olanzapine 10 mg oral tablet) TAKE 1 TABLET BY MOUTH EVERYDAY AT BEDTIME ?? 07/14/24 9pm Changed Trazodone (traZODone 100 mg oral tablet) TAKE 2 TABLETS BY MOUTH EVERY DAY AT BEDTIME ?? 07/14/24 9pm Changed sacubitril-valsartan (Entresto 24 mg-26 mg oral tablet) 1 tab(s) Oral Twice a day Pickup at [facility] 3 07/15/24 9am Unchanged amiODARONE (amiodarone 200 mg oral tablet) TAKE 1 TABLET BY MOUTH EVERY DAY ?? 07/15/24 9am Unchanged apixaban (Eliquis 5 mg oral tablet) TAKE 1 TABLET BY MOUTH TWICE A DAY ?? 07/14/24 9pm Unchanged empagliflozin (Jardiance 10 mg oral tablet) TAKE 1 TABLET BY MOUTH EVERY DAY ?? 07/15/24 9am Unchanged Sertraline (sertraline 50 mg oral tablet) TAKE 1 TABLET BY MOUTH EVERY DAY IN THE MORNING ?? 07/15/24 9am Unchanged Tamsulosin (tamsulosin 0.4 mg oral capsule) TAKE 1 CAPSULE BY MOUTH EVERYDAY AT BEDTIME ?? 07/14/24 9pm Pharmacy Information [facility] 3: [address], [place] [id number] [phone] ?? What How Much When Comments Stop Taking Aspirin (aspirin 81 mg oral tablet) 1 tab(s) Oral Daily Duration: 30 Days Stop Taking Aspirin (Aspirin Low Dose 81 mg oral delayed release tablet) TAKE 1 TABLET BY MOUTH EVERY DAY ?? Stop Taking Furosemide (furosemide 40 mg oral tablet) 1 tab(s) Oral Daily Duration: 30 Days Stop Taking Furosemide (furosemide 40 mg oral tablet) TAKE 1 TABLET BY MOUTH TWICE A DAY FOR 14 DAYS ?? Stop Taking Lisinopril (lisinopril 2.5 mg oral tablet) 1 tab(s) Oral Daily Duration: 30 Days Stop Taking Miscellaneous Rx (-) See instructions Please check basic metabolic panel in one week and fax results to Dr Uriel chavez ?? Stop Taking Spironolactone (spironolactone 25 mg oral tablet) TAKE 1 TABLET BY MOUTH EVERY DAY ?? Prescription Given During Visit Atorvastatin (atorvastatin 40 mg oral tablet) - 1 tablet = 40 mg, By Mouth, Daily, # 30 tablet, 5 Refills, [facility], [address] [place] [address] [phone]?? sacubitril-valsartan (Entresto 24 mg-26 mg oral tablet) - 1 tablet, By Mouth, 2 times a day, # 60 tablet, 0 Refills, [facility] 3, [address] [place] [phone]?? Laboratory Results Below is a partial list of the most recent Laboratory test results done prior to this discharge. You may have had other tests and procedures not included in this list. Please discuss all test resultswith your provider. Est Creatinine Clearance - 58.90 mL/min (07/14/2024) Alk Phos (07/10/2024) ???Alkaline Phosphatase - 67 units/L ALT (07/10/2024) ???ALT (SGPT) - 43 units/L AST (07/10/2024) ???AST (SGOT) - 20 units/L Basic Metabolic Panel (07/14/2024) ???Sodium - 138 mmol/L???Potassium - 3.8 mmol/L???Chloride - 102 mmol/L???Bicarbonate Level - 26 mmol/L???Anion Gap - 10???Glucose Level - 112 mg/dL???BUN - 17 mg/dL???Creatinine-Blood - 0.99 mg/dL???Estimated GFR Creatinine - 85 ML/MIN/1.73 M2???Calcium - 8.8 mg/dL Bilirubin Total + Direct (07/10/2024) ???Bilirubin, Total - 0.6 mg/dL???Bilirubin, Direct - 0.2 mg/dL???Bilirubin, Indirect - 0.4 mg/dL BUN (07/10/2024) ???BUN - 21 mg/dL Calcium Level (07/10/2024) ???Calcium - 9.2 mg/dL CBC (07/14/2024) ???WBC - 11.7 k/mm3???RBC - 4.27 m/mm3???Hgb - 12.4 Gm/dL???Hct - 38.2 %???MCV - 89.5 femtoliters???MCH - 29.0 pg???MCHC - 32.5 Gm/dL???Platelet Count - 198 k/mm3???RDW-SD - 47.8 femtoliters???MPV - 12.3 femtoliters???Nucleated RBC (Automated) - 0.0 #/100 WBC'S???Abs. NRBC - 0.0 k/mm3 CBC w/ Differential (07/10/2024) ???WBC - 7.2 k/mm3???RBC - 5.52 m/mm3???Hgb - 15.9 Gm/dL???Hct - 47.6 %???MCV - 86.2 femtoliters???MCH - 28.8 pg???MCHC - 33.4 Gm/dL???Platelet Count - 265 k/mm3???RDW-SD - 44.7 femtoliters???MPV - 12.4 femtoliters???Nucleated RBC (Automated) - 0.0 #/100 WBC'S???Abs. NRBC - 0.0 k/mm3???Abs. Neut - 4.8 k/mm3???Abs. Lymph - 1.4 k/mm3???Abs. Howard - 0.6 k/mm3???Abs. Eo - 0.2 k/mm3???Abs. Baso - 0.1 k/mm3???Neut % - 67.1 %???Lymph % - 19.6 %???Howard % - 8.8 %???Eos % - 2.5 %???Baso % - 1.7 %???Imm Gran - 0.3 %???Abs. Imm Gran - 0.0 k/mm3 Comprehensive Metabolic Panel (07/13/2024) ???Sodium - 137 mmol/L???Potassium - 4.3 mmol/L???Chloride - 103 mmol/L???Bicarbonate Level - 23 mmol/L???Anion Gap - 11???Glucose Level - 115 mg/dL???BUN - 19 mg/dL???Creatinine-Blood - 1.03 mg/dL???Estimated GFR Creatinine - 81 ML/MIN/1.73 M2???Calcium - 9.0 mg/dL???Protein, Total - 6.2 Gm/dL???Albumin - 3.6 Gm/dL???AG Ratio - 1.4???Alkaline Phosphatase - 60 units/L???AST (SGOT) - 49 units/L???ALT (SGPT) - 24 units/L???Bilirubin, Total - 0.6 mg/dL COVID-19 (2019 Novel Coronavirus) PCR (07/12/2024) ???COVID-19 PCR Specimen Source - NASAL???COVID-19 PCR Result - NEGATIVE Creatinine (07/10/2024) ???Creatinine-Blood - 1.23 mg/dL???Estimated GFR Creatinine - 65 ML/MIN/1.73 M2 Electrolytes (07/10/2024) ???Sodium - 142 mmol/L???Potassium - 3.3 mmol/L???Chloride - 104 mmol/L???Bicarbonate Level - 24 mmol/L???Anion Gap - 14 Glucose Level (07/10/2024) ???Glucose Level - 94 mg/dL GLUCOSE POC (07/13/2024) ???Glucose, POC - 156 mg/dL HEMOGLOBIN A1C (07/10/2024) ???Hemoglobin A1C (Monitoring) - 6.0 % Lactate Level (07/12/2024) ???Lactate - 2.0 mmol/L LFT's (07/12/2024) ???Protein, Total - 6.5 Gm/dL???Albumin - 3.8 Gm/dL???Alkaline Phosphatase - 78 units/L???AST (SGOT) - 19 units/L???ALT (SGPT) - 35 units/L???Bilirubin, Total - 0.3 mg/dL???Bilirubin, Direct - 0.1 mg/dL???Bilirubin, Indirect - 0.2 mg/dL LIPID PANEL (07/12/2024) ???Cholesterol - 101 mg/dL???Triglycerides - 121 mg/dL???HDL Cholesterol - 35 mg/dL???LDL Cholesterol - 42 mg/dL???Non HDL Cholesterol - 66 mg/dL Magnesium Level (07/14/2024) ???Magnesium - 1.9 mg/dL Phosphorus Level (07/12/2024) ???Phosphorus - 3.4 mg/dL POC Hemochron ACT-LR (07/12/2024) ???POC ACT-LR - 163.0 seconds PROBNP (07/10/2024) ???Nt-Probnp - 887 pg/mL TSH (07/10/2024) ???TSH - 3.81 uIU/mL You will be contacted within 72 hours with your results. Allergies (NKA means No Known Allergies) NKA Problems Active Problems??(4) Acute systolic congestive heart failure?? Non-ischemic cardiomyopathy?? Paroxysmal atrial fibrillation?? Severe obesity (BMI 35.0-39.9) with comorbidity?? Education Materials Below is the list of Educational Leaflet Providered with your Discharge Instructions. WebMD Ignite Patient Education - New ICD Instructions?? Web[employer] Ignite Patient Education - Biventricular Pacemaker and ICD (Biventricular ICD)?? Web[employer] Ignite Patient Education - Discharge Instructions for Implantable Cardioverter-Defibrillator (ICD)?? WebMD Ignite Patient Education - Living with an Implantable Cardioverter Defibrillator (ICD)?? WebMD Ignite Patient Education - Cardiac Catheterization, Bleeding or Hematoma After?? WebMD Ignite Patient Education - Heart Failure?? Valuables and Belongings I fully understand and agree that [facility] accepts no responsibility for all my personal property including clothing, toilet articles, radios, jewelry, dentures, hearing aids, rings, money, or any other property that is in my possession or is brought to me after admission. I understand certain valuables may be placed in a hospital safe for a short period of time. I understand that the hospital is not liable for loss or damage due to accident, fire, or other natural occurrence while said property is in the safe. I accept full responsibility for any personal property that I keep with me, and will not hold the hospital responsible in case of loss or disappearance. I acknowledge that i have been encouraged to send valuables and belongings home. ?? Review of Valuable and Belonging List: With patient Date for Pt to Sign Valuables/Belongings: 07/09/24 18:43:00 ?? Other Discharge Information ? Pulmonary Rehab Status?? Pulmonary Rehab Discharge Status?? Respiratory Rate: 18 br/min ? Common Emergency Awareness Tips IS IT A STROKE? Act FAST and Check for these signs: FACE Does the face look uneven? ARM Does one arm drift down? SPEECH Does their speech sound strange? TIME Call at any sign of stroke ?? Heart Attack Signs Chest discomfort: Most heart attacks involve discomfort in the center of the chest and lasts more than a few minutes, or goes away and comes back. It can feel like uncomfortable pressure, squeezing, fullness or pain. Discomfort in upper body: Symptoms can include pain or discomfort in one or both arms, back, neck, jaw or stomach. Shortness of breath: With or without discomfort. Other signs: Breaking out in a cold sweat, nausea, or lightheaded. Remember, MINUTES DO MATTER. If you experience any of these heart attack warning signs, call to get immediate medical attention! ?? Smoking can increase your chances of developing chronic health problems and can cause harmful effects to other family members in your house. If you smoke, you are strongly encouraged to quit. Please call [facility] at [phone] or [phone] Group (0490) or log in to [email or web address] for referrals to smoking cessation programs. ?? 645 Suicide & Crisis Lifeline is available 06/03 if you or someone you know needs to find a reason to keep living. By calling 991 you'll be connected to a skilled, trained counselor at a crisis center in your area. INPATIENT DISCHARGE INSTRUCTIONS SIGNATURE ARCHANA MONAYUNIOR Location:[facility] Registration Date and Time:07/09/2024 18:15 EST Primary Care Physician: Jamie Le MD , Be Prieto, Attending Physician: Franco Martinez MD, I YUNIOR GLOVER, have received the above patient education materials/instructions and have verbalized understanding. If ambulance or transport services are being used I further acknowledge being given a choice of service. ?? If you need to contact me, please call me at this number: . Patient/Director Zone Name: Patient/Director Zone Signature: Relationship to Patient: Witness Name/Signature: Date: * Gayle Oropeza RN: PERFORM Event Display: Patient Education Leaflets Authored Date: [id number] New ICD Instructions ?? 725 ??Instrucciones para el desfibrilador intracard??aco Intracardiac Defibrilator Instructions - Polish Cuidado del sitio de la incisi??n ??? No se retire el vendaje ni se duche por 3 d??as. Cuando se retire el vendaje, puede mojar la incisi??n moises no frote el ??renée. S??quela con toquecitos. No use lociones ni earl??entos en el sitio. La incisi??n estar?? cubierta con pegamento para la piel O con Steri-Strips. No se retire ninguno de los recubrimientos. El lavado de shira es fundamental, evite tocar la incisi??n. ??? Cuidado de lasSteri-Strips: no tire, jale ni frote las Steri-Strips. Se saldr??n solas en dos semanas, de lo contrario se las retirar??n cuando revisen brooks herida. ?? Actividad ??? Si recibi?? mariajose nuevo solo a bater??a:??no levante, empuje, tire ni cargue objetos que pesen m??s de 10 libras (4.5 kg) hasta que se cure la incisi??n. No use ropa que pueda frotar la incisi??n. ??? Si recibi?? mariajose nuevo con cables:??Limite el movimiento del brazo que est?? del mismo lado que brooks desfibrilador, moises no lo deje quieto o Sim 6 semanas evite levantar sylvia brazo por encima de brooks jaylon ni levante o transporte objetos que pesen m??s de 10 libras (4.5 kg). o Evite jugar al golf, nadar, jugar al tenis, jugar a los bolos, palear gutierrez o cortar el c??sped por 6 semanas. o Puede dormir sobre el mismo lado en que se encuentra el dispositivo cuando le resulte c??modo. o No conduzca por 5 d??as a menos que brooks m??dico le indique lo contrario. o No use ropa que pueda frotar la incisi??n. ?? Instrucciones de seguimiento ??? Si a??n no tiene kylah gavino de seguimiento programada, llame para programarla. ??? Revise el manual que se entrega con el dispositivo. ??? Cuando deje el hospital, le zelda??n kylah tarjeta de identificaci??n temporal. El fabricante le enviar?? por correo kylah tarjeta permanente en 6-8 semanas. Tenga esta tarjeta de identificaci??n consigo en todo momento. ??? No pase por detectores de metales, tenga brooks tarjeta de identificaci??n preparada porque deber?? mostrarla. Informe al personal de seguridad, est??n entrenados para seguir los procedimientos adecuados. ??? Es posible que le den un monitor para brooks hogar, ench??chanelle y d??jelo al lado de brooks cama. No toque matias??n bot??n a menos que le indiquen lo contrario. ??? Inf??rmele a todos paulette profesionales m??dicos (m??dicos, cirujanos, dentistas, quiropr??cticos, etc.) que tiene un desfibrilador. ??? Evite smith potenciales de mercado el??ctricos o magn??ticos luna. Consulte a brooks cardi??logo antes de programar kylah resonancia magn??bryce confines diagn??sticos. Algunos dispositivos card??acos implantables no son seguros para realizarse resonancias magn??yaima. Si tiene kylah pregunta sobre alguna parte del equipo, p??ngase en contacto conel fabricante del dispositivo llamando al n??debbi sin cargo que aparece en la contraportada de brooks folleto o tarjeta de identificaci??n. ??? Puede usar la mayor??a de los electrodom??sticos (incluso los hornos de microondas) y herramientas en buen estado. Los tel??fonos celulares podr??an afectar sudispositivo. Use el tel??fono en el o??do opuesto y no lo guarde en el bolsillo de brooks camisa. ?? Llame a brooks m??dico si experimenta alguno de los siguientes s??ntomas: ??? Si brooks desfibrilador hace kylah ric descarga (si recibe un choque) y se siente mela, llame al consultorio de brooks cardi??logo de cabecera. Si recibe m??ltiples choques o si se siente mal, llame al 911. ??? Cualquier efecto secundario de paulette medicamentos: sarpullido, tos, mareos, calambres en las piernas, n??useas o visi??n borrosa. ??? Si el sitio del procedimiento comienza a sangrar, recu??stese y marian presi??n en el sitio de la incisi??n por 30 minutos, si el sangrado no para, trasl??dese al departamento de emergencias m??s cercano. No conduzca brooks xiomara. ??? Brooks incisi??n parece estar inflamada, enrojecida o sale pus. Estos son signos de kylah posible infecci??n. ??? Si tiene fiebre de 101 ??F o m??s. ??? Si siente muchodolor en el sitio de incisi??n, en brooks est??mauricio o en la espalda. ?? * Molly Longo DO: PERFORM Event Display: Patient Education Leaflets Authored Date: [id number] Biventricular Pacemaker and ICD (Biventricular ICD) ?? 29457 Marcapasos y DCI biventricular (DCI biventricular)?? Tiene kylah afecci??n llamada insuficiencia card??edgar. Tambi??n es conocida nevaeh ???insuficiencia card??edgar congestiva?? (ICC). Esta afecci??n causa s??ntomas tales nevaeh cansarse muy f??cilmente y quedarse sin aire. Para ayudar a tratar estos s??ntomas, brooks proveedor de atenci??n m??dica le recomienda un marcapasos biventricular y un desfibrilador cardioversor implantable (DCI), mary anne ??ltimo tambi??n es conocido nevaeh DCI biventricular. Tambi??n suele llamarse terapia de resincronizaci??n card??edgar con un DCI (TRC-D). ??Un marcapasos y DCI biventricular es un dispositivo eliana??o y ligero que funciona con kylah bater??a. Ayuda al coraz??n a latir normalmente. Tambi??n lo protege de ritmos card??acos peligrosos. C??mo funciona el coraz??n El coraz??n est?? formado por cuatro c??maras que bombean la mary lou para que pase por el coraz??n. Las dos c??maras superiores son la aur??cula izquierda y la aur??cula derecha. Estas son las dos c??maras de llenado del coraz??n. Las c??maras inferiores son el ventr??culo derecho y el ventr??culo john. Estas son las c??maras de bombeo del coraz??n. Los latidos del coraz??n se producen por unimpulso el??ctrico dentro de la aur??cula derecha, en kylah estructura llamada n??dulo sinusal. Luego, mary anne impulso el??ctrico se transmite desde la aur??cula hasta los ventr??culos mediante conductores llamados nodo AV y las ramas del haz de His. Estos conductores del haz de His se extienden hasta los ventr??culos john y derecho y permiten la contracci??n coordinada de ambos ventr??culos. ?? C??mo funciona el dispositivo Las personas con insuficiencia card??edgar suelen tener da??ado o debilitado el miocardio de los ventr??culos. Las ramificaciones que se extienden a lo clarence de mary anne m??sculo tambi??n pueden estar da??adas, lo que provoca contracciones descoordinadas entre los ventr??culos john y derecho. En consecuencia, los ventr??culos no bombean de manera sincronizada nevaeh deber??an. ??Las v??as que transportan los impulsos el??ctricos del coraz??n est??n en el m??sculo del coraz??n. Tambi??n pueden da??arse con la insuficiencia card??edgar. [place] puede causar un bloqueo de las ramificaciones. Un bloqueo de las ramificaciones puede desplazar el tiempo de la contracci??n del coraz??n. [place] puede hacer que la contracci??n del coraz??n sea m??s d??han. Un marcapasos y DCI biventricular ayuda a mantener el coraz??n latiendo correctamente. La parte deldispositivo que act??a nevaeh marcapasos impide que el coraz??n alpesh demasiado despacio. Busca reestablecer el ritmo card??aco normal. [place] se conoce nevaeh resincronizaci??n card??edgar.??Puede causar unacontracci??n card??edgar m??s eficaz y jose enrique. La parte del dispositivo que funciona nevaeh CDI (desfibrilador) detecta los ritmos card??acos peligrosamente r??pidos e intenta detenerlos, ya sea mediantela regulaci??n o la emisi??n de kylah descarga el??ctrica. Esta descarga del regulador o la emisi??n de la descarga el??ctrica detiene el ritmo card??aco acelerado y restablece el latido normal. ?? Antes del procedimiento Marian lo siguiente: ??? No coma nada ni madisyn nada antes de la cirug??a seg??n le indiquen. ??? Siga las instrucciones de brooks proveedor de atenci??n m??dica sobre c??mo debe ba??arse la noche antes y la ma??be del procedimiento. Es posible que deba usar kylah soluci??n de limpieza especial. ??? D??gale a brooks m??dico qu?? medicamentos mady. [place] incluye los medicamentos de venta noah nevaeh el ibuprofeno. Tambi??n vitaminas, hierbas y otros suplementos. Es posible que deba dejar de antionette algunos medicamentos antes del procedimiento, nevaeh los anticoagulantes y la aspirina. ??? D??gale a brooks proveedor de atenci??n m??dica si es sensible o al??rgico a algo. [facility] incluye los medicamentos, el l??yoandy, la cinta y los medicamentos anest??sicos. ??? P??russ a un familiar o amigo que lo acompa??e del hospital a brooks casa. Pruebas antes del procedimiento Antes del procedimiento, es posible que deba hacerse las siguientes pruebas: ??? radiograf??a de t??rax; ??? an??lisis de mary lou para verificar brooks estado general de susan; ??? ecocardiograf??a para evaluar el funcionamiento del coraz??n y electrocardiograma para evaluar el ritmo card??aco. ?? Sim el procedimiento ??? Le administrar??n un medicamento (anestesia) para que no sienta dolor.Lo m??s probable es que le administren medicamentos sedantes para que se sienta relajado y levemente adormecido. Tambi??n le inyectar??n anestesia local para insensibilizar la piel del pecho donde jamie?? la incisi??n (makenzie). ??? Kylah vez que el medicamento marian efecto, le korey??n kylah incisi??n en el lugar donde se implantar?? el dispositivo. Suele ser en el lado john del pecho, debajo de laclav??cula. ??? A continuaci??n, el m??dico korey?? kylah eliana??a ???bolsa?? debajo de la piel para el generador. ??? El m??dico colocar?? un tubo rosas y flexible (cat??ter) en kylah vena que vaya hacia la aur??cula derecha. Guiar?? los cables (electrodos) a alyssia??s del cat??ter hasta el coraz??n. Se usar?? un monitor de kalyan X para market research specialist los electrodos hasta el ventr??culo derecho. Por lo general tambi??n se pondr?? un electrodo en la aur??cula derecha. ??? El proveedor de atenci??n m??dica colocar?? el electrodo en el ventr??culo john en kylah vena que pasa por la parte externa de la c??m aydee. Con la ayuda del monitor de kalyan X colocar?? el electrodo en el punto adecuado. El dispositivo estimular?? el ventr??culo john desde el exterior. Los otros electrodos estimular??n el coraz??n desde el interior de las c??maras. ??? A continuaci??n se conecta el generador a los cables. Se env??an impulsos el??ctricos a alyssia??s de los cables para probar el generador. La prueba puede causar latidos r??pidos. ??? Luego, se colocar?? el generador en la bolsa creada debajo de la piel. ??? El m??dico programar?? el dispositivo de acuerdo con el ritmo card??aco que sea adecuado para usted yrevisar?? el marcapasos para asegurarse de que est?? funcionando correctamente. ??? La incisi??n secierra con suturas, pegamento quir??rgico o grapas. Cualquier sutura se disolver?? con el tiempo. Si se usa pegamento, mary anne sellar?? la incisi??n y prevendr?? infecciones. El ??renée se cubre con un vendaje. ?? Despu??s del procedimiento Pasar?? varias horas en kylah duy de recuperaci??n. Kylah vez que est?? estable y despierto, lo llevar??n a kylah habitaci??n donde se puede monitorear el ritmo card??aco. [facility] equipo de atenci??n m??dica tambi??n vigilar?? brooks respiraci??n y otros signos vitales. Si es necesario, le zelda??n medicamentos para el dolor. Le colocar??n el brazo del lado del dispositivo en un cabestrillo. [facility] es solo por corto tiempo, para mantener el hombro y el brazo quietos. Le antionette??n kylah radiograf??a del t??rax para asegurarse de que los electrodos est??n donde deben estar. Tambi??n le revisar??n que los pulmones no se hayan lesionado sim el procedimiento. Podr?? reanudar brooks alimentaci??n habitual somres pronto nevaeh pueda hacerlo. Estar?? bajo observaci??n sim la noche. El equipo m??dico revisar?? el dispositivo la ma??be siguiente. Es muy posible que pueda regresar a casa el d??a siguiente de brooks procedimiento. Dilan vez tenga que antionette antibi??ticosdurante varios d??as para prevenir las infecciones. ?? La recuperaci??n en el hogar Siga las instrucciones de brooks proveedor de atenci??n m??dica sobre c??mo antionette paulette medicamentos, ba??arse, hacer ejercicio, alimentarse y cuidar brooks incisi??n. Pregunte cu??ndo puede volver a brooks trabajo y a manejar. No alce brooks brazo por encima del hombro del lado que tiene la incisi??n hasta que brooks proveedor le diga que puede hacerlo. [facility] suele ser de 3 a 4 semanas luego de la operaci??n. [facility] permite que los electrodos se fijen dentro del coraz??n. ?? Seguimiento Aseg??rese de acudir a todas paulette citas de seguimiento. [facility] es para que brooks proveedor de atenci??n m??dica pueda descargar la informaci??n de brooks dispositivo y revisar la configuraci??n. Com??ntele a brooks proveedor c??mo le est?? funcionando el dispositivo. Ahora, la mayor??a de los dispositivos pueden conectarse a sistema de monitoreo inal??mbrico para el hogar a alyssia??s de Internet. El monitor puede descargar informaci??n de brooks dispositivo y envi??rsela a brooks proveedor de atenci??n m??dica. [facility] permite que se verifique que el dispositivo est?? funcionando nevaeh debe. ?? La chi con un marcapasos y CDI biventricular ??? Lleve consigo kylah tarjeta de identificaci??n. Cuando le coloquen un marcapasos, le zelda??n kylah tarjeta de identificaci??n para que lleve. Esta tarjetacontiene informaci??n importante sobre el dispositivo. Mu??stresela a cualquier m??dico, dentista uotro proveedor que visite. Los marcapasos suelen activar los detectores de metales. Por eso, es probable que deba mostrar brooks tarjeta al personal de seguridad. ??? Tenga cuidado al usar un tel??fono celular. P??ngalo en el o??do m??s alejado del marcapasos. No lleve el tel??fono en matias??n bolsillo que quede cerca del pecho, aun cuando est?? apagado. ??? Evite los imanes muy luna. Los dispositivos m??s modernos son compatibles con las IRM, aunque dilan vez deba reprogramarse antes de realizarseun diagn??stico por IRM. Cuando pase por un control de seguridad, nevaeh en aeropuertos, muestre brooks tarjeta de identificaci??n al personal de seguridad para que puedan antionette las precauciones necesariaspara brooks dispositivo sim el control. ??? Al??aaliyah de los mercado el??ctricos luna. Algunos generadores el??ctricos pueden crear la interferencia electromagn??bryce suficiente para afectar el funcionamiento normal del dispositivo. Evite el contacto directo o la proximidad de generadores industriales. La mayor??a de los aparatos electrodom??sticos y de jard??n no causan problemas. Evite tocar el bloque de motor de un autom??juve encendido. Si utiliza herramientas el??ctricas grandes, nevaeh kylah soldadora de arco industrial, hable con brooks m??dico.? Est?? pendiente de la bater??a. La bater??a en el interior del dispositivo se revisa regularmente. Esta dura entre 5 y 7??a??os, o incluso porm??s tiempo, seg??n la frecuencia con la que regule o detenga los ritmos card??acos peligrosos. Unavez que empiece a agotarse deber?? ser cambiada. Es nevaeh la cirug??a de implantaci??n del marcapasos, moises tarda menos tiempo. [facility] se debe a que es solo la bater??a o el generador lo que debe cambiarse. ??? Tenga cuidado al manejar. [facility] dispositivo tiene incorporado un desfibrilador. Se recomienda evitar manejar sim la primera semana posterior al implante del dispositivo. Tambi??n es posible que no pueda manejar por 6 meses despu??s de que el desfibrilador env??e kylah descarga o si anteriormente kovacs tenido un ataque card??aco. Si tiene un CDI, no le permitir??n trabajar nevaeh conductor comercial. ?? Cu??ndo llamar al proveedor de atenci??n m??dica Llame al 911 si siente dolor en el pecho o tiene dificultades para respirar. Llame al proveedor de atenci??n m??dica si tiene cualquiera de los siguientes s??ntomas: ??? Enrojecimiento, hinchaz??n grave, dolor intenso, supuraci??n, sangrado o sensaci??n de calor en el sitio de la incisi??n. ??? Se abre el sitio de la incisi??n o no prashanth mela. ??? Fiebre de 100.4?F (38?C) o m??s, o seg??n lo indicado por el proveedor de atenci??n m??dica. ??? Dolor cada vez m??s jose enrique alrededor del generador. ??? Hinchaz??n del brazo o la mano que est?? del mismo lado que la incisi??n. ??? Aumento repentino de peso. ??? Movimientos involuntarios de los m??sculos del pecho o del abdomen. ??? Hipo frecuente o silverio. ??? Descarga el??ctrica procedente del dispositivo. ??? Ritmo card??aco muy r??pido que no se detiene. ??? El generador se siente flojo o se mueve dentro del bolsillo debajo de la piel.? Last Reviewed Date: 2023 ?? [id number] [employer]. Todos los derechos reservados. Esta informaci??n no pretende sustituir la atenci??n m??dica profesional. S??lo brooks m??dico puede diagnosticar y tratar un problema de susan. ?? * Molly Longo DO: PERFORM Event Display: Patient Education Leaflets Authored Date: [id number] Discharge Instructions for Implantable Cardioverter-Defibrillator (ICD) ?? 28179 Instrucciones de dayana para la colocaci??n de un desfibrilador autom??vinita implantable (RADHA) Usted se kovacs sometido a un procedimiento de colocaci??n de desfibrilador autom??vinita implantable. Kylah vez colocado en el cuerpo, mary anne dispositivo monitorea brooks ritmo card??aco (la velocidad y el patr??n que siguen los latidos de brooks coraz??n). Si el ritmo se hace demasiado r??pido, esto puede ser mortal. El RADHA ayuda a corregir un ritmo demasiado r??pido al enviar un choque el??ctrico. La mayor??a de los RADHA tambi??n sirven para tratar un ritmo card??aco demasiado lento mediante el monitoreo de lafrecuencia card??edgar y el env??o de se??ales el??ctricas seg??n sea necesario. A medida que se recupera, siga las instrucciones que se presentan a continuaci??n. Tambi??n todas las dem??s instrucciones que haya recibido de brooks proveedor de atenci??n m??dica. Actividad ??? No conduzca hasta que el proveedor de atenci??n m??dica le diga que puede hacerlo. Serecomienda que no conduzca sim el tiempo que le indique el proveedor de atenci??n m??dica despu??s del primer implante del dispositivo y nuevamente si el dispositivo hace kylah descarga. Los ritmoscard??acos potencialmente mortales que se tratan con estos dispositivos pueden causarle la p??rdidade conocimiento, lo cual ser??a muy peligroso si se encontrara conduciendo. ??? Limite brooks actividadcomo le indiquen. ??? Inf??rmele al proveedor de atenci??n m??dica si tiene limitaciones para ba??arse. ??? Si le pusieron el brazo en un cabestrillo, mant??ngalo as?? sim todo el tiempo que le haya indicado el proveedor de atenci??n m??dica. Sin embargo, aseg??rese de que el brazo no est?? completamente inmovilizado sim m??s de kylah semana. [facility] puede causar rigidez en el hombro. ??? No levante el brazo del lado de la incisi??n por encima del hombro ni estire el hombro detr??s de la espalda sim el tiempo que le recomiende el proveedor de atenci??n m??dica. [facility] permitir?? que los electrodos del dispositivo se fijen firmemente dentro de brooks coraz??n. ??? Preg??ntele al proveedor de atenci??n m??dica cu??ndo puede volver al trabajo y si tendr?? limitaciones en paulette tareas laborales sim alg??n plazo. Si para brooks trabajo necesita kylah licencia de conducir comercial, tenga en cuenta que tener un RADHA constituye kylah restricci??n para mary anne tipo de licencia. ?? Otras precauciones ??? [place] brooks temperatura y revise brooks incisi??n todos los d??as sim 7??d??as despu??s de la implantaci??n del dispositivo para detectar se??ales de infecci??n. Entre estas se??ales se incluyen enrojecimiento, hinchaz??n, supuraci??n o calor. ??? [place] los medicamentos exactamente nevaeh se le haya indicado. No omita ninguna dosis ni deje de antionette los medicamentos sin consultar nevin al proveedor de atenci??n m??dica. Inf??rmele al proveedor de atenci??n m??dica si tiene alg??n s??ntoma nuevo que podr??a ser un efecto secundario. ??? Lleve consigo kylah tarjeta de identificaci??n que contenga informaci??n sobre brooks desfibrilador. Usted florence?? recibir kylah tarjeta de identificaci??n temporal que contiene informaci??n sobre brooks RADHA. Le llegar?? kylah tarjeta definitiva por correo. Ll??martin con usted.??Puede mostrar brooks tarjeta si brooks RADHA activa un detector de metales. Tambi??n debe mostrarla para evitar la exploraci??n con detectores de metales manuales. ??? Antes de realizar cualquier tratamiento, d??bridgette a paulette proveedores de atenci??n m??dica y a brooks dentista que tiene colocado un RADHA. ??? Tenga precauci??n cuando use tel??fonos celulares y otros dispositivos electr??nicos. Mant??ngalos a kylah distancia de, por lo menos, 15??cm (6??pulgadas) del RADHA. Lo m??s seguro es usar los tel??fonos celulares en la oreja que est?? m??s alejada del RADHA o usar el altavoz. No lleve el tel??fono ni otro dispositivo electr??patrica en el bolsillo del pecho, sobre el desfibrilador. Se aconseja llevarlos en un bolsillo que est?? debajo de la cintura o en un bolso. La mayor??a de los tel??fonos celulares y dispositivos electr??nicos no interfieren con los desfibriladores autom??ticos implantables. Moises algunos tel??fonos celulares y dispositivos electr??nicos (nevaeh los relojes inteligentes) usan imanes potentes para la carga inal??mbrica. Estos pueden interferir en el funcionamiento normal del RADHA. El im??n usado para cargar y otros accesorios con imanes tambi??n pueden interferir en el funcionamiento normal del RADHA. Mantenga estos dispositivos lejos del RADHA cuando los guarde o los cargue por v??a inal??mbrica. Siga toda instrucci??n que le haya dado brooks proveedor de atenci??n m??dica o el fabricante de brooks RADHA. ??? Evite los imanes muy luna. Por ejemplo, los que se usan en las pruebas de im??genes por resonancia magn??bryce (MRI, por brooks sigla en ingl??s) o los detectores de metales manuales. Preg??ntele al proveedor de atenci??n m??dica si brooks RADHA es compatible con lasresonancias magn??yaima. La mayor??a de los RADHA modernos son compatibles con las resonancias magn??yaima. ??? Evite los mercado el??ctricos potentes. Por ejemplo, los que producen las nieto de radiotransmisi??n, los transmisores de radioaficionados y los equipos el??ctricos industriales. ??? Evite inclinarse sobre el motor encendido de un autom??juve con el cap?? abierto. Un motor encendido crea un native el??ctrico. Excepto por brooks autom??juve, otros aparatos del hogar, nevaeh brooks microondas, no presentan matias??n peligro. La mayor??a de los equipos de jardiner??a, nevaeh la cortadora de c??sped, son seguros. Si usa herramientas profesionales, nevaeh kylah soldadora de arco, consulte al proveedor de atenci??n m??dica para obtener recomendaciones. ??? Asista a las consultas habituales con el proveedor de atenci??n m??dica. [place] le revisar?? el dispositivo y as?? asegurarse de que est?? funcionando correctamente. ?? Atenci??n de seguimiento Programe kylah gavino de seguimiento con el proveedor de atenci??n m??dica nevaeh se le indique. Consulte al proveedor de atenci??n m??dica sobre la posibilidad del monitoreo remoto de brooks RADHA. Es posible que el RADHA tenga un sistema de monitoreo remoto que pueda enviar informaci??n por tel??fono o Internet al proveedor de atenci??n m??dica. Si no se puede controlar de forma remota brooks dispositivo, deber?? asistir a chequeos darin??dicos en el consultorio de brooks cardi??logo para controlar el funcionamiento y la duraci??n de la bater??a de brooks RADHA. Nevaeh promedio, planee realizarse un control de brooks dispositivo cada 6??meses, o seg??n la indicaci??n de brooks proveedor de atenci??n m??dica. La bater??a del generador puede durar entre 10??y 12??a??os. ?? Cu??ndo llamar al proveedor de atenci??n m??dica Llame al proveedor de atenci??n m??dica de inmediato si tiene alguno de estos s??ntomas: ??? Sensaci??n de descarga el??ctrica procedente del RADHA. [facility] puede sentirse nevaeh si le patearan el pecho. ??? Fiebre de 100.4?F (38?C) o superior, o seg??n lo que le indique brooks proveedor de atenci??n m??dica ??? Se??ales de infecci??n en el sitio de la incisi??n. Estos incluyen enrojecimiento, hinchaz??n, supuraci??n o calor. ??? Espasmos musculares en el pecho o abdomen ??? Aumento del dolor alrededor de brooks desfibrilador ??? Sangrado en el sitio de la incisi??n ??? Inflamaci??n del brazo del ladode la incisi??n ??? Hipo persistente ?? Cu??ndo llamar al 911 Llame al 911 de inmediato ante cualquiera de los siguientes s??ntomas: ??? Recibe m??s de kylah descarga ??? Pierde el conocimiento a causa de la descarga ??? Tiene otros s??ntomas graves, nevaeh dolor de pecho, antes o despu??s de la descarga ?? Last Reviewed Date: 2023 ?? [id number] [employer]. Todos los derechos reservados. Esta informaci??n no pretende sustituir la atenci??n m??dica profesional. S??lo brooks m??dico puede diagnosticar y tratar un problema de susan. ?? * Event Display: Hemodynamic Procedure Report Authored Date: History and physical note * Mayo CHAUDHRY, Vivian Sauer: PERFORM, MODIFY, MODIFY Event Display: History and Physical Hospital Authored Date: Patient: ??YUNIOR GLOVER ? Age:??63 Years?Sex:??Male?:??1960?? History of Present Illness 07/09 ?? 63 yo male with pmh of??HLD, CAD s/p stent, persistent a fib on eliquis,??CHF (ef??10-15%), BPH, mood d/o. Patient transferred from [facility] for further eval / management of atrial flutter.? Information obtained from??documents sent??by outside hospital,??also from??patient (I used Spanishinterpreter). ?? Patient was recently hospitalized for CHF exa, improved with iv lasix, d/c 07/05.?? Patient also had a??recent cardioversion, not clear if this was??during??the last admission,??however it seems??it was??within this month. ??He again went to [facility] 07/08 with sob and orthopnea for 1-2 days.?? He also complained of some??chest discomfort. ??He had retained fluid.?He is compliantto meds but??as per note he is not compliant to fluid and salt restriction. ?? Patient??was admitted for acute CHF exa with??acute resp failure and a fib. He was treated with iv lasix,??amiodarone, metoprolol, eliquis.??Seen by cardio, as per cardio note they think??patient went into recurrent atrial arrhythmia that precipitated another CHF. Cardio recommended to keep npo after midnight for?? cardioversion tomorrow . However as per d/c note, cardio recommended transfer to [facility] for possible ablation and ICD implantation.? At this time patient says that he does not have any chest pain and breathing is improved. ?? Currently hemodynamically??stable and in RA. Labs from today - wbc??6.2, hb??15, platelet 236, sodium 140. k 3.4, cl 105, co2 25, creat 1.17, bun 22, jt 8.9. on 07/08 he had bili 00.6, ast 67, alt 100, alk phos??94. trop 26.6. BNP 1300. CRP 1.76. Covid??and flu neg.?? EKG: As per note it showed a flutter with 2:1 block with ventricular rate 93, QTc 542, LBBB.?? CXR: Mild to moderate interstitial pulm edema, findings appear more pronounced than the cxr of??. Unchanged cardiomegaly. Trace left pleural effusion.?? Review of Systems All systems reviewed and negative except as in HPI. Objective Measurements?? Height: 159 cm (07/09/24) Weight: 89.4 kg (07/09/24) Dry Weight: 89.4 kg (07/09/24) Body Mass Index:??35.36 kg/m2??Critical (07/09/24) ? Vital Signs?? Temperature: 98.2 DegF (07/09/24 20:48:00) Temperature Route: Oral (07/09/24 20:48:00) Pulse Rate:??97 bpm??High (07/09/24 20:48:00) Respiratory Rate: 18 br/min (07/09/24 20:48:00) Systolic Blood Pressure: 131 mm Hg (07/09/24 20:48:00) Diastolic Blood Pressure: 84 mm Hg (07/09/24 20:48:00) Blood pressure sites: Arm, right (07/09/24 20:48:00) Mean Arterial Pressure: 100 mm Hg (07/09/24 20:48:00) Pulse Pressure: 47 mm Hg (07/09/24 20:48:00) Oxygen Saturation: 96 % (07/09/24 20:48:00) Mode of Delivery (Oxygen): Room air (07/09/24 20:48:00) Early Warning Score: 0 (07/09/24:51:25) ? Physical Exam Constitutional: ??Alert,??no acute distress, co-operative, lying on the bed, saturating well on room air. ?? Mental state: Oriented Head: ??Normocephalic, atraumatic. ?? Eye:?No discharge. ENT: No discharge. Neck: ??Supple,??no JVD. Cardiovascular: ??S1, S2. Regular rhythm. No MRG. Respiratory: ??Lungs are clear to auscultation b/l, No RRR. ?? Gastrointestinal: ??Soft, Nontender, Non distended, ??Normal bowel sounds.?? Genitourinary: No costovertebral angle tenderness. Neurological: ??Cranial nerves intact. Motor and sensory intact. Back: ??Nontender. Musculoskeletal: ??Normal ROM.?? No edema Hematology: No lymphadenopathy Skin: ??Warm, dry. Psychiatric: ??Cooperative.?? Assessment/Plan Diagnoses Acute exacerbation of CHF (congestive heart failure) ??(I50.9) Atrial fibrillation and flutter ??(I48.91) BPH (benign prostatic hyperplasia) ??(N40.0) CAD (coronary artery disease) ??(I25.10) HLD (hyperlipidemia) ??(E78.5) Mood disorder ??(F39) Transaminitis ??(R74.01) ?? Assessment:??63 yo male with pmh of??HLD, CAD s/p stent, persistent a fib on eliquis,??CHF (ef??10-15%), BPH, mood d/o. Patient transferred from [facility] for further eval / management of atrial flutter.? Acute exacerbation of CHF (congestive heart failure) (I50.9):??Patient??admitted??to[facility] with??recurrent??CHF exacerbation, received??diuretics, symptoms have improved.??It seems patient was also hypoxic at that time,??but currently on room air.??Patient feels much better. ?? Continue telemetry. Continue??Lasix??40 mg twice daily. Continue??spironolactone. Continue Entresto. Continue metoprolol. Jardiance nonformulary. Cardiology consult. ?ACEI or ARB for LVSD:??ARB has been ordered ?? Atrial fibrillation and flutter (I48.91):??Continue telemetry. Continue??apixaban. Continue amiodarone. Continue metoprolol. As per??outside hospital note it seems patient had recently??had cardioversion??that??failed.??Cardiology thinks??A-fib/flutter??is??causing her??recurrent CHF exacerbation.??Transferred to [facility]??for consideration of ablation.??Cardiology consult requested. Monitor and correct potassium and magnesium level. Will keep n.p.o. after midnight. ?? CAD (coronary artery disease) (I25.10):??Continue aspirin, statin. ?? Transaminitis (R74.01):??Liver enzymes elevated??at outside hospital.??Thought to be related to??congestive hepatopathy versus nonalcoholic??fatty liver.??We will monitor??liver enzymes.??If rising may need to hold statin. ?? HLD (hyperlipidemia) (E78.5):??Continue atorvastatin.??Monitor liver enzymes.??If rising may need to??hold??statin. ?? BPH (benign prostatic hyperplasia) (N40.0):??Continue tamsulosin. ?? Mood disorder (F39):??Continue??trazodone,??sertraline, olanzapine. ?? VTE Prophylaxis:??Eliquis ?VTE Prophylaxis Assessment:??VTE Prophylaxis Ordered ?? Discharge Planning:? Code Status:??Full code ?Order Code Status:??Code Status Ordered ? Estimated Discharge Date ? Histories Allergies Allergies ?(Active and Proposed Allergies Only) NKA? (Severity: Unknown severity, Onset: Unknown) ? Past Medical History/Problem List Active Problems(4) Acute systolic congestive heart failure Non-ischemic cardiomyopathy Paroxysmal atrial fibrillation Severe obesity (BMI 35.0-39.9) with comorbidity ? Past Surgical History No surgery history documented. ? Social History No social history documented. ? Family History No Family History documented. ? Medications Home Medications Aspirin (aspirin 81 mg oral tablet)?1?tab(s)?81?Milligram?By Mouth?Daily?for 30?Days Atorvastatin (Lipitor 80 mg oral tablet)?80?Milligram?By Mouth?Daily at bedtime?for 30?Days Furosemide (furosemide 40 mg oral tablet)?40?Milligram?1?tablet?By Mouth?Daily?for 30?Days Lisinopril (lisinopril 2.5 mg oral tablet)?2.5?Milligram?1?tablet?By Mouth?Daily?for 30?Days Metoprolol (metoprolol 25 mg oral tablet, extended release)?25?Milligram?1?tablet?ByMouth?Daily?for 30?Days Miscellaneous Rx (-)?See Instructions?Please check basic metabolic panel in one week and fax results to Dr Uriel chavez Olanzapine (ZyPREXA 10 mg oral tablet)?10?Milligram?1?tablet?By Mouth?Daily Trazodone (traZODone 100 mg oral tablet)?100?Milligram?1?tablet?By Mouth?Daily atbedtime ? Inpatient Medications Medications (26) Active SCHEDULED: (13) Amiodarone 200 mg Tablet (amiodarone 200 mg oral tablet) ??200 mg, By Mouth, 2 times a day Apixaban 5 mg Tablet (Apixaban Tablet) ??5 mg, By Mouth, 2 times a day Aspirin 81 mg Chew Tablet (aspirin 81 mg oral tablet, chewable) ??81 mg, By Mouth, Daily Atorvastatin 80 mg Tablet (Lipitor 80 mg oral tablet) ??80 mg, By Mouth, Daily at bedtime Furosemide 40 mg Tablet (Lasix 40 mg oral tablet) ??40 mg, By Mouth, 2 times a day Metoprolol 25 mg XL Tablet (metoprolol 25 mg oral tablet, extended release) ??25 mg, By Mouth, Daily NaCl 0.9% Flush 3ml (NaCL 0.9% Flush) ??3 mL, IV Push, Every 8 hours Olanzapine 10mg Tablet (ZyPREXA 10 mg oral tablet) ??10 mg, By Mouth, Daily at bedtime Sacubitril-Valsartan 49 mg-51 mg Tablet (Entresto 49 mg-51 mg oral tablet) ??1 tablet, By Mouth, 2 times a day Sertraline 50 mg Tablet (sertraline 50 mg oral tablet) ??50 mg, By Mouth, Daily Spironolactone 25 mg Tablet (spironolactone 25 mg oral tablet) ??25 mg, By Mouth, Daily Tamsulosin 0.4 mg Capsule (tamsulosin 0.4 mg oral capsule) ??0.4 mg, By Mouth, Daily at bedtime Trazodone 50 mg Tablet (traZODone 50 mg oral tablet) ??200 mg, By Mouth, Daily at bedtime CONTINUOUS: (0) PRN: (13) Acetaminophen 325 mg Tablet (Acetaminophen Tablet) ??650 mg, By Mouth, Every 4 hours Dextromethorphan-Guaifenesin 20 mg-200 mg/10 mL Liqu UD (Robitussin DM Liquid) ??10 mL, By Mouth, Every 4 hours Dextrose Inj Syringe (Dextrose 50% Inj Syringe (25Gm)) ??12.5 Gm, IV Push Slowly, Every 20 minutes Dextrose Inj Syringe (Dextrose 50% Inj Syringe (25Gm)) ??25 Gm, IV Push Slowly, Every 15 minutes Docusate Sodium 100 mg Capsule (Docusate Sodium Capsule) ??100 mg 1 capsule, By Mouth, 2 times a day Glucagon 1 mg Inj (Glucagon Inj) ??1 mg, Intramuscular, Once Glucose 40% Gel (15 Gm) (Glucose Gel) ??15 Gm, By Mouth, Every 20 minutes Glucose 40% Gel (15 Gm) (Glucose Gel) ??30 Gm, By Mouth, Every 20 minutes Melatonin 3 mg Tablet (Melatonin Tablet) ??3 mg, By Mouth, Daily at bedtime NaCl 0.9% Flush 3ml (NaCL 0.9% Flush) ??3 mL, IV Push, Every 8 hours Polyethylene Glycol 17 Gm Powder (MiraLax Powder) ??17 Gm 1 pack/packet, By Mouth, Daily Senna Tablet ??8.6 mg 1 tablet, By Mouth, 2 times a day Simethicone 80 mg Chewable Tablet (Simethicone Tablet) ??80 mg, Chew, 3 times a day ? Results Recent Labs CHEM GENERAL Glucose, POC 114 mg/dL (High)?? 07/09/2024 20:38 ? Admission evaluation note * Antonella Valencia DO: PERFORM, MODIFY, MODIFY, MODIFY, MODIFY Event Display: Admission Note Authored Date: Patient: ??YUNIOR GLOVER ? Age:??63 Years?Sex:??Male?:??1960?? Chief Complaint/Reason for Consultation hypotension History of Present Illness 63 yo male with history of Afib/flutter, HLD, HTN, DM2, depression/anxiety, GERD,??non ischemic cardiomyopathy, CHF (ef??10-15%), BPH who??was??transferred from [facility] for ablation??of atrial flutter. ?? Per chart review patient presented to outside hospital due to shortness of breath and orthopnea. Hefred had a recent hospitalization for CHF exacerbation with discharge 3 days prior to re-admission. He has a history of a fib/flutter with failed cardioversion. At outside hospital he was found to have mildly elevated troponin and BNP, CXR mild to moderate with pulmonary edema. He was admitted for acute on chronic CHF exacerbation, afib, and started on IV lasix, amiodarone, metoprolol, and eliquis. Seen by their cardiology team then transferred here for ablation. Since arrival patient has had some intermittent hypotension, mostly early each morning. Has been in aflutter prior to ablation. CBCshave been fairly unremarkable. Initially with hypokalemia, now resolved. Cr elevated 1.23 on arrival now 1.32. Per outside chart review 1.17 prior to transfer, appears to be 1.1-1.3 at baseline.? He??had ablation this morning and placement of BiV ICD. During procedure became increasingly hypotensive requiring??pressor??support now weaned off. Blood pressures have been stable and he will be admitted to [facility] for closer monitoring. ?? On discussion with patient with kennel attendant, he confirms that he has had several admissions for heart failure exacerbations related to his afib/flutter. He denies ever having a stent placed or myocardial infarction. Confirms having the cardiac cath here 2019 but doesn't believe any have been done since then. Currently feeling really well with mild chest discomfort post procedure but no major chest pain, shortness of breath. No abd pain, nausea. No dizziness, headache. He is very thirsty and wants a truck of water . Review of Systems Negative except as per HPI Objective Measurements?? Height: 159 cm (07/12/24) Weight: 96.4 kg (07/12/24) Dry Weight: 89.4 kg (07/09/24) Body Mass Index:??38.13 kg/m2??Critical (07/12/24) ? Vital Signs?? Temperature: 97.7 DegF (07/12/24 05:02:00) Temperature Route: Oral (07/12/24 05:02:00) Pulse Rate: 67 bpm (07/12/24 05:02:00) Respiratory Rate: 18 br/min (07/12/24 05:02:00) Systolic Blood Pressure:??89 mm Hg??Low (07/12/24 05:02:00) Diastolic Blood Pressure: 67 mm Hg (07/12/24 05:02:00) Blood pressure sites: Arm, right (07/12/24 05:02:00) Mean Arterial Pressure: 74 mm Hg (07/12/24 05:02:00) Pulse Pressure: 22 mm Hg (07/12/24 05:02:00) Oxygen Saturation: 96 % (07/12/24 05:02:00) Mode of Delivery (Oxygen): Room air (07/12/24 05:02:00) Early Warning Score: 3 (07/12/24 06:18:07) ? Intake/Output? 07/09 18:15 07/12 07:00 07/11 07:00 07/10 07:00 07/09 07:00 ?? 07/12 11:37 07/12 11:37 07/12 06:59 07/11 06:59 07/10 06:59 Intake ? 1630 ?0 ?600 ?880 ?150 Output ?0 ?0 ?0 ?0 ?0 Net Total ? 1630 ?0 ?600 ?880 ?150 ? Urine Count ? 11 ?0 ?2 ?5 ?4 ? Physical Exam Constitutional: Alert, in no distress. Mental Status: Oriented to person, place and time. Head: Normocephalic. Eyes: Pupils are equal, round and reactive to light. Extraocular muscles intact. Ear, Nose and Throat: Oropharynx clear, mucous membranes moist. Ears and nose without masses, lesions or deformities. Trachea midline. Neck: Supple, Full range of motion. Respiratory: Clear to auscultation, slightly diminished at bases. No wheezing, rales or rhonchi. Currently on 3L NC saturating 95% Cardiovascular: RRR. No murmur. dressing with minimal bleeding Gastrointestinal: Abdomen soft, non-tender, non-distended. Normal bowel sounds. Neurologic: No focal neurological deficits Skin: No rashes or lesions. No petechiae or purpura.?? Musculoskeletal: No cyanosis or clubbing. No gross deformities. Psychiatric: Normal mood and affect Assessment/Plan Yunior??is a 63-year-old male with history of Afib/flutter, HLD, HTN, prediabetes, depression/anxiety, GERD,??CHF (ef??10-15%), BPH who??was initially admitted to [facility] for heart failure exacerbation, transferred to [facility]??for ablation??of atrial flutter.??During procedure patient hypotensive??requiring two pressors likely secondary to??sedation, transferred to [facility] for??close monitoring. ?? NEURO: No acute concerns - tylenol prn for??pain ?? CVS: Hypotension, improved Afib/flutter s/p ablation Acute on Chronic Heart Failure Exacerbation, resolved Hx Non-Ischemic Cardiomyopathy Hx Hypertension, Hx Hyperlipidemia Patient presented to outside hospital w/ shortness of breath found to be in acute on chronic HF exacerbation likely secondary to afib/aflutter, transferred to [facility] for ablation. Unclear history of CAD based on previous notes; last cath in our records 2018 was w/o CAD; note from February 2024 states history of nonischemic cardiomyopathy with last cath 2019 no CAD; per patient andfamily has never had stent placed Echo Jun 2023 w/ EF 20-25%; recent echo with EF 10-15% per previous notes s/p ablation and placement of BiV ICD During procedure hypotensive requiring pressor support, now weaned off??so was transferred to [facility] for closer monitoring Current BP stable off pressors, patient with mild chest discomfort but no pain or shortness of breath ?? Plan: - continue Amiodarone 200mg BID - continue Eliquis 5mg BID -??will stop??ASA 81 daily - continue Atorvastatin 80mg nightly, will get lipid panel - continue Metoprolol 25mg daily - Hold Entresto 49mg-51mg BID tonight - Hold Furosemide 40mg BID, tonight, will restart as needed - Hold Spironolactone 25mg daily - Jardiance non-formulary,??can resume on discharge - bedrest 3 hrs post procedure - will remove A line, femoral stopcock at around 3pm - pressure dressing until tomorrow AM -??EKG and CXR now and tomorrow AM will get repeat EKG and CXR AP/Lateral ?? PULM: Intubated for procedure,??now extubated??on 3L NC and weaning ?? FEN/GI:?? No acute concerns - miralax, senna??prn for bowel regimen ?? RENAL: Likely History of CKD (Baseline Cr 1.1-1.3 per outside chart) Current Cr 1.[address] post op -monitor Is&Os -will remove Segura in AM for voiding trial ?? ID: No acute concerns ?? ENDO: Hx Prediabetes, A1c 6%, glucoses have been wnl last two days - will discontinue glucose checks ?? HEME/ONC: No acute concerns ?? : Hx BPH -continue home Tamsulosin 0.4 ?? Psych Hx Anxiety/depression - cont home Sertraline 50mg daily, Trazodone 200mg daily at bedtime, Zyprexa 10mg daily at bedtime ?? [employer] Nutrition: cardiac VTE Prophylaxis:??eliquis Code Status:??Full ?? Antonella Valencia, DO Med/Peds PGY 3 [place]??or [id number] ?? Patient seen and discussed with attending Dr. Cantrell Histories Allergies Allergies ?(Active and Proposed Allergies Only) NKA? (Severity: Unknown severity, Onset: Unknown) ? Past Medical History/Problem List Active Problems(4) Acute systolic congestive heart failure Non-ischemic cardiomyopathy Paroxysmal atrial fibrillation Severe obesity (BMI 35.0-39.9) with comorbidity ? Past Surgical History No surgery history documented. ? Social History No social history documented. ? Family History No Family History documented. ? Medications Home Medications Aspirin (aspirin 81 mg oral tablet)?1?tab(s)?81?Milligram?By Mouth?Daily?for 30?Days Atorvastatin (Lipitor 80 mg oral tablet)?80?Milligram?By Mouth?Daily at bedtime?for 30?Days Furosemide (furosemide 40 mg oral tablet)?40?Milligram?1?tablet?By Mouth?Daily?for 30?Days Lisinopril (lisinopril 2.5 mg oral tablet)?2.5?Milligram?1?tablet?By Mouth?Daily?for 30?Days Metoprolol (metoprolol 25 mg oral tablet, extended release)?25?Milligram?1?tablet?ByMouth?Daily?for 30?Days Miscellaneous Rx (-)?See Instructions?Please check basic metabolic panel in one week and fax results to Dr Uriel chavez Olanzapine (ZyPREXA 10 mg oral tablet)?10?Milligram?1?tablet?By Mouth?Daily Trazodone (traZODone 100 mg oral tablet)?100?Milligram?1?tablet?By Mouth?Daily atbedtime ? Inpatient Medications Medications (25) Active SCHEDULED: (12) Amiodarone 200 mg Tablet (amiodarone 200 mg oral tablet) ??200 mg, By Mouth, 2 times a day Apixaban 5 mg Tablet (Apixaban Tablet) ??5 mg, By Mouth, 2 times a day Aspirin 81 mg Chew Tablet (aspirin 81 mg oral tablet, chewable) ??81 mg, By Mouth, Daily Atorvastatin 80 mg Tablet (Lipitor 80 mg oral tablet) ??80 mg, By Mouth, Daily at bedtime Furosemide 40 mg Tablet (Lasix 40 mg oral tablet) ??40 mg, By Mouth, Daily Metoprolol 25 mg XL Tablet (metoprolol 25 mg oral tablet, extended release) ??25 mg, By Mouth, Daily NaCl 0.9% Flush 3ml (NaCL 0.9% Flush) ??3 mL, IV Push, Every 8 hours Olanzapine 10mg Tablet (ZyPREXA 10 mg oral tablet) ??10 mg, By Mouth, Daily at bedtime Sacubitril-Valsartan 49 mg-51 mg Tablet (Entresto 49 mg-51 mg oral tablet) ??1 tablet, By Mouth, 2 times a day Sertraline 50 mg Tablet (sertraline 50 mg oral tablet) ??50 mg, By Mouth, Daily Tamsulosin 0.4 mg Capsule (tamsulosin 0.4 mg oral capsule) ??0.4 mg, By Mouth, Daily at bedtime Trazodone 50 mg Tablet (traZODone 50 mg oral tablet) ??200 mg, By Mouth, Daily at bedtime CONTINUOUS: (0) PRN: (13) Acetaminophen 325 mg Tablet (Acetaminophen Tablet) ??650 mg, By Mouth, Every 4 hours Dextromethorphan-Guaifenesin 20 mg-200 mg/10 mL Liqu UD (Robitussin DM Liquid) ??10 mL, By Mouth, Every 4 hours Dextrose Inj Syringe (Dextrose 50% Inj Syringe (25Gm)) ??12.5 Gm, IV Push Slowly, Every 20 minutes Dextrose Inj Syringe (Dextrose 50% Inj Syringe (25Gm)) ??25 Gm, IV Push Slowly, Every 15 minutes Docusate Sodium 100 mg Capsule (Docusate Sodium Capsule) ??100 mg 1 capsule, By Mouth, 2 times a day Glucagon 1 mg Inj (Glucagon Inj) ??1 mg, Intramuscular, Once Glucose 40% Gel (15 Gm) (Glucose Gel) ??15 Gm, By Mouth, Every 20 minutes Glucose 40% Gel (15 Gm) (Glucose Gel) ??30 Gm, By Mouth, Every 20 minutes Melatonin 3 mg Tablet (Melatonin Tablet) ??3 mg, By Mouth, Daily at bedtime NaCl 0.9% Flush 3ml (NaCL 0.9% Flush) ??3 mL, IV Push, Every 8 hours Polyethylene Glycol 17 Gm Powder (MiraLax Powder) ??17 Gm 1 pack/packet, By Mouth, Daily Senna Tablet ??8.6 mg 1 tablet, By Mouth, 2 times a day Simethicone 80 mg Chewable Tablet (Simethicone Tablet) ??80 mg, Chew, 3 times a day ? Vaccinations and Immunoprophylaxis influenza virus vaccine, inactivated: 0.5 mL (05/21/19 07:29:00) pneumococcal 23-valent vaccine: 0.5 mL (05/21/19 07:29:00) ?? Results Recent Labs BLOOD COUNT & DIFF WBC 6.2 k/mm3 ()?? 07/12/2024 05:10 RBC 5.39 m/mm3 ()?? 07/12/2024 05:10 Hgb 15.5 Gm/dL ()?? 07/12/2024 05:10 Hct 46.0 % ()?? 07/12/2024 05:10 MCV 85.3 femtoliters ()?? 07/12/2024 05:10 MCH 28.8 pg ()?? 07/12/2024 05:10 MCHC 33.7 Gm/dL ()?? 07/12/2024 05:10 Platelet Count 271 k/mm3 ()?? 07/12/2024 05:10 RDW-SD 44.2 femtoliters ()?? 07/12/2024 05:10 MPV 12.1 femtoliters ()?? 07/12/2024 05:10 Nucleated RBC (Automated) 0.0 #/100 WBC'S ()?? 07/12/2024 05:10 Abs. NRBC 0.0 k/mm3 ()?? 07/12/2024 05:10 ?? CHEM GENERAL Sodium 142 mmol/L ()?? 07/12/2024 05:13 Potassium 4.0 mmol/L ()?? 07/12/2024 05:13 Chloride 107 mmol/L ()?? 07/12/2024 05:13 Bicarbonate Level 21 mmol/L (Low)?? 07/12/2024 05:13 Anion Gap 14 ()?? 07/12/2024 05:13 Glucose Level 100 mg/dL (High)?? 07/12/2024 05:13 Glucose, POC 130 mg/dL (High)?? 07/11/2024 21:20 BUN 26 mg/dL (High)?? 07/12/2024 05:13 Creatinine-Blood 1.32 mg/dL (High)?? 07/12/2024 05:13 Estimated GFR Creatinine 60 ML/MIN/1.73 M2 ()?? 07/12/2024 05:13 Calcium 9.1 mg/dL ()?? 07/12/2024 05:13 Phosphorus 3.4 mg/dL ()?? 07/12/2024 05:13 Magnesium 2.1 mg/dL ()?? 07/12/2024 05:13 Protein, Total 6.5 Gm/dL ()?? 07/12/2024 05:13 Albumin 3.8 Gm/dL ()?? 07/12/2024 05:13 Alkaline Phosphatase 78 units/L ()?? 07/12/2024 05:13 AST (SGOT) 19 units/L ()?? 07/12/2024 05:13 ALT (SGPT) 35 units/L ()?? 07/12/2024 05:13 Bilirubin, Total 0.3 mg/dL ()?? 07/12/2024 05:13 Bilirubin, Direct 0.1 mg/dL ()?? 07/12/2024 05:13 Bilirubin, Indirect 0.2 mg/dL ()?? 07/12/2024 05:13 ?? URINE OTHER Est Creatinine Clearance 44.17 mL/min ()?? 07/12/2024 06:16 ? * Tamia CHAUDHRY, Rashad Prieto: PERFORM Event Display: Admission Note Authored Date: I have seen and examined??YUNIOR GLOVER??today with the house staff.?? I agree with the diagnosis, assessment, and treatment plan outlined with any additions and modifications below. ?? 63M w/ NICM/HFrEF LVEF 10-15%, transferred to [facility] for AF ablation + BiV- ICD.?? With anesthesiafor ablation/ICD procedure, pt was hypotensive requiring 2 pressors.?? Successfully extubated post-procedure, weaned from pressors.?? Monitoring in [facility] and restarting GDMT. ?? - amiodarone 200 BID - apixaban 5 BID - atorvastatin 80 - metoprolol succinate 25 - plan to restart home Entresto, spironolactone, and furosemide prior to discharge ?? Rashad Cantrell MD, MS, FACC, FSCAI, FSVM, RPVI Director, Cardiac Catheterization Business Process Modeler, Cardiovascular Clinical Research [facility] Cell:?? [email or web address]:?? Fax:?? [address] [place] [address] EKG study * Event Display: EKG Authored Date: * Event Display: EKG Authored Date: * Event Display: ECG 12-Lead Authored Date: Please click on pdf link to open report * Event Display: ECG 12-Lead Authored Date: Ventricular Rate: 80 BPM Atrial Rate: 80 BPM P-R Interval: 160 ms QRS Duration: 148 ms Q-T Interval: 456 ms QTC Calculation(Bazett): 525 ms P Keeler: 70 degrees R Keeler: 262 degrees T Keeler: 76 degrees Atrial-sensed ventricular-paced rhythm Abnormal ECG When compared with ECG of 12-Jul-2024 12:46, Vent. rate has decreased by 3 bpm Confirmed by RAMA BURRELL MD ([id number]) on 07/13/2024 9:49:17 AM [place]: RAMA BURRELL MD * Event Display: ECG 12-Lead Authored Date: Please click on pdf link to open report * Event Display: ECG 12-Lead Authored Date: Ventricular Rate: 83 BPM Atrial Rate: 83 BPM P-R Interval: 164 ms QRS Duration: 154 ms Q-T Interval: 448 ms QTC Calculation(Bazett): 526 ms P Keeler: 68 degrees R Keeler: -79 degrees T Keeler: 71 degrees Atrial-sensed ventricular-paced rhythm Abnormal ECG Confirmed by Rashad Cantrell ([id number]) on 07/12/2024 2:31:19 PM [place]: Rashad Cantrell * Event Display: ECG 12-Lead Authored Date: Please click on pdf link to open report * Event Display: ECG 12-Lead Authored Date: Ventricular Rate: 80 BPM Atrial Rate: 234 BPM QRS Duration: 154 ms Q-T Interval: 460 ms QTC Calculation(Bazett): 530 ms R Keeler: -53 degrees T Keeler: 66 degrees Atrial fibrillation Left bundle branch block Abnormal ECG When compared with ECG of 20-May-2019 17:59, Atrial fibrillation has replaced Sinus rhythm Left bundle branch block is now Present Confirmed by RAMA BURRELL MD ([id number]) on 07/10/2024 2:48:37 PM [place]: RAMA BURRELL MD Cardiology * Event Display: Cardiac Rhythm Strips Authored Date: Hospital Progress note * Ally CHAUDHRY, Sim: PERFORM Event Display: Progress Note Hospital Authored Date: Patient: ??MONA, YUNIOR ? Age:??63 Years?Sex:??Male?:??1960?? Subjective Pt denies cp or sob. Objective Vitals & Measurements T:??97.3?F?? TMIN:??97.3?F?? TMAX:??98.4?F?? HR:??59??(Peripheral)?? RR:??18?? BP:??91/60?? SpO2:??96%?? Physical Exam General: no acute distress Head: atraumatic Eyes: anicteric Lungs: CTAB Heart: RRR, no murmur Abd: soft, non-tender Skin: pocket hematoma stable in size Neuro: alert and oriented Psych: stable Assessment/Plan 1. Atrial flutter 2. Atrial fibrillation 3. HFrEF with LBBB 4. CAD s/p PCI 5. BPH 6. HLD 7. Hematoma ? S/p PVI and PWI via PFA??catheter ablation for AF. Continue amiodarone and Eliquis. S/p BiV ICD implantation. Mild hematoma formation at pocket site. Continue asa and high-int statin for CAD history.?? Post-op instructions provided to the patient. ? Sim Canales MD Cardiology [facility] ?? Medications Inpatient Acetaminophen Tablet, 650 mg, By Mouth, Every 4 hours, PRN amiodarone 200 mg oral tablet, 200 mg, By Mouth, 2 times a day Apixaban Tablet, 5 mg, By Mouth, 2 times a day Docusate Sodium Capsule, 100 mg= 1 capsule, By Mouth, 2 times a day, PRN Entresto 24 mg-26 mg oral tablet, 1 tablet, By Mouth, Every 12 hours Lipitor 80 mg oral tablet, 80 mg, By Mouth, Daily at bedtime Melatonin Tablet, 3 mg, By Mouth, Daily at bedtime, PRN metoprolol 25 mg oral tablet, extended release, 25 mg, By Mouth, Daily MiraLax Powder, 17 Gm= 1 pack/packet, By Mouth, Daily, PRN NaCL 0.9% Flush, 3 mL, IV Push, Every 8 hours NaCL 0.9% Flush, 3 mL, IV Push, Every 8 hours NaCL 0.9% Flush, 3 mL, IV Push, Every 8 hours, PRN oxyCODONE 5 mg oral tablet, 5 mg, By Mouth, Every 6 hours, PRN Robitussin DM Liquid, 10 mL, By Mouth, Every 4 hours, PRN Senna Tablet, 8.6 mg= 1 tablet, By Mouth, 2 times a day, PRN sertraline 50 mg oral tablet, 50 mg, By Mouth, Daily Simethicone Tablet, 80 mg, Chew, 3 times a day, PRN tamsulosin 0.4 mg oral capsule, 0.4 mg, By Mouth, Daily at bedtime traZODone 50 mg oral tablet, 200 mg, By Mouth, Daily at bedtime ZyPREXA 10 mg oral tablet, 10 mg, By Mouth, Daily at bedtime Home amiodarone 200 mg oral tablet atorvastatin 40 mg oral tablet, 40 mg= 1 tablet, By Mouth, Daily, 5 refills Eliquis 5 mg oral tablet Entresto 24 mg-26 mg oral tablet, 1 tablet, By Mouth, 2 times a day Jardiance 10 mg oral tablet Metoprolol Succinate ER 25 mg oral tablet, extended release olanzapine 10 mg oral tablet sertraline 50 mg oral tablet tamsulosin 0.4 mg oral capsule traZODone 100 mg oral tablet * Gayle Oropeza RN: PERFORM, SIGN, VERIFY Event Display: Progress Note Hospital Authored Date: [id number] Patient: YUNIOR GLOVER Age: 63 years Sex: Male : 1960 Associated Diagnoses: None Author: Gayle Oropeza RN Findings Narrative/Incidental Mr Glover is discharging home without services. reviewed discharge instructions, medications, and follow up appts with kennel attendant at bedside with Mr Glover and girlfriend. They verbalize unders tandingandarepickingupscriptsinpharmacy. Discharge Information Case Management Discharge Plan : Case Management Discharge Plan Data 07/14/2024 13:22 EST Discharge Level of Care at Discharge Home/Skilled Nursing/Foster Care 07/13/2024 18:44 EST Discharge Level of Care at Discharge Not Done: cancelled not discharging (Not Done) * Nanette Segundo RN: PERFORM, SIGN, VERIFY, MODIFY, SIGN Event Display: Progress Note Hospital Authored Date: Patient: YUNIOR GLOVER Age: 63 years Sex: Male : 1960 Associated Diagnoses: None Author: Nanette Segundo RN Findings Problem Related to Alteration in Cardiac Function (new) : Alteration in Cardiac Function/new 07/13/2024 21:00 EST Alteration in Cardiac Status Related to Cardiac Procedure, Dysrhythmia, Heart failure, Other: ICD placed Goals & Outcomes, Cardiac Status Resolved problem, Goals/Outcomes met Cardiac Interventions Implemented Assess/monitor cardiac status, Assess/monitor neuro status, Assess/monitor respiratory status, Assess for tolerance of IV infusions; verify rate & dose, Call/Report variances in ECG to provider, Document & Monitor O2 Sats; Administer O2 as ordered, Ensure adequate caloric intake, If no bowel movement in 3 days activate bowel regime, Monitor & document daily weight BH Goals/Interventions, Cardiac Yes Cardiac, Problem Start 07/09/2024 18:51 Reviewed Plan with, Cardiac Status Patient Patient Progression, Cardiac Status Resolved problem Cardiac, Problem Resolved 07/13/2024 10:37 . Evaluation Pt A&Ox4. Paced in the 70s on tele, no complaints of C/P, SOB, or dizziness. On RA, VSS. Ambulated to the BR standby, voided in the BR. Pressure dressing intact over ICD in Left clavicle. Pt safety and comfort maintained, see biophysical and CIS for further assessments. . Discharge Information Case Management Discharge Plan : Case Management Discharge Plan Data 07/13/2024 18:44 EST Discharge Level of Care at Discharge Not Done: cancelled not discharging (Not Done) Consult note * Ad CHAUDHRY, Jan: PERFORM Event Display: Consultation Note Authored Date: Patient: ??YUNIOR GLOVER ? Age:??63 Years?Sex:??Male?:??1960?? History of Present Illness/Interval History 63 yo male with pmh of??HLD, CAD s/p stent, persistent a fib on eliquis,??CHF (ef??10-15%), BPH, mood d/o. Patient transferred from [facility] for further eval / management of atrial flutter.? Information obtained from??documents sent??by outside hospital,??also from??patient ?? Patient was recently hospitalized for CHF exa, improved with iv lasix, d/c 07/05.?? Patient also had a??recent cardioversion, not clear if this was??during??the last admission,??however it seems??it was??within this month. ??He again went to [facility] 07/08 with sob and orthopnea for 1-2 days.?? He also complained of some??chest discomfort. ??He had retained fluid.?He is compliantto meds but??as per note he is not compliant to fluid and salt restriction. ?? Patient??was admitted for acute CHF exa with??acute resp failure and a fib. He was treated with iv lasix,??amiodarone, metoprolol, eliquis.??Seen by cardio, as per cardio note they think??patient went into recurrent atrial arrhythmia that precipitated another CHF. Cardio recommended to keep npo after midnight for?? cardioversion tomorrow . However as per d/c note, cardio recommended transfer to [facility] for possible ablation and ICD implantation.? At this time patient says that he does not have any chest pain and breathing is improved. ?? Currently hemodynamically??stable and in RA. Labs from today - wbc??6.2, hb??15, platelet 236, sodium 140. k 3.4, cl 105, co2 25, creat 1.17, bun 22, jt 8.9. on 07/08 he had bili 00.6, ast 67, alt 100, alk phos??94. trop 26.6. BNP 1300. CRP 1.76. Covid??and flu neg.?? EKG: As per note it showed a flutter with 2:1 block with ventricular rate 93, QTc 542, LBBB.?? CXR: Mild to moderate interstitial pulm edema, findings appear more pronounced than the cxr of??. Unchanged cardiomegaly. Trace left pleural effusion.?? Review of Systems All other review of systems are negative except mentioned HPI Physical Exam Vitals & Measurements T:??97.9?F?? HR:??87??(Peripheral)?? RR:??18?? BP:??94/81?? SpO2:??100%?? HT:??159??cm?? WT:??90.0??kg?? BMI:??35.36?? Weight lb/oz: 198 lb 7 oz ?General not in acute distress ?HEENT: PERRLA ?Neck: No JVD, No thyromegaly ?Lungs: clear to auscultation bilaterally ?Cardiovascular:??Irregular rhythm ?Abdomen: soft, nontender, positive bowel sounds ?Extremities: no edema ?Skin: No rash ?Neuro: grossly normal Assessment/Plan Acute exacerbation of CHF (congestive heart failure) Atrial fibrillation and flutter BPH (benign prostatic hyperplasia) CAD (coronary artery disease) HLD (hyperlipidemia) Mood disorder Transaminitis ?? Notably patient has??chronic systolic heart failure. He has been on rhythm control with amiodarone with??cardioversions however??is again??in atrial fibrillation/flutter. We had a detailed discussion with the patient with regards to??ablation. ??Patient at this point isin favor of ablation.?? Risk and benefits of the procedure were discussed in detail. Patient scheduled for??ablation on Monday. Keep potassium above 4 Continue amiodarone Agree with diuresis Patient has??QRS duration greater than 154 ms.?? In view of??sustained??low EF??patient will benefit from primary prevention ICD.?? In view of widened QRS??will prefer??BiV device. ??Will set up BiV device outpatient ?? Thank you for the consult. ??Please [place] connect if you have any questions Allergies NKA Home Medications Aspirin: 81 mg = 1 tablet, By Mouth, Daily Atorvastatin: 80 mg, By Mouth, Daily at bedtime Furosemide: 40 mg = 1 tablet, By Mouth, Daily Lisinopril: 2.5 mg = 1 tablet, By Mouth, Daily Metoprolol: 25 mg = 1 tablet, By Mouth, Daily Miscellaneous Rx (-): See Instructions, Please check basic metabolic panel in one week and fax results to Dr Uriel chavez Olanzapine: 10 mg = 1 tablet, By Mouth, Daily Trazodone: 100 mg = 1 tablet, By Mouth, Daily at bedtime Hospital Medications Medications (26) Active SCHEDULED: (13) Amiodarone 200 mg Tablet (amiodarone 200 mg oral tablet) ??200 mg, By Mouth, 2 times a day Apixaban 5 mg Tablet (Apixaban Tablet) ??5 mg, By Mouth, 2 times a day Aspirin 81 mg Chew Tablet (aspirin 81 mg oral tablet, chewable) ??81 mg, By Mouth, Daily Atorvastatin 80 mg Tablet (Lipitor 80 mg oral tablet) ??80 mg, By Mouth, Daily at bedtime Furosemide 40 mg Tablet (Lasix 40 mg oral tablet) ??40 mg, By Mouth, 2 times a day Metoprolol 25 mg XL Tablet (metoprolol 25 mg oral tablet, extended release) ??25 mg, By Mouth, Daily NaCl 0.9% Flush 3ml (NaCL 0.9% Flush) ??3 mL, IV Push, Every 8 hours Olanzapine 10mg Tablet (ZyPREXA 10 mg oral tablet) ??10 mg, By Mouth, Daily at bedtime Sacubitril-Valsartan 49 mg-51 mg Tablet (Entresto 49 mg-51 mg oral tablet) ??1 tablet, By Mouth, 2 times a day Sertraline 50 mg Tablet (sertraline 50 mg oral tablet) ??50 mg, By Mouth, Daily Spironolactone 25 mg Tablet (spironolactone 25 mg oral tablet) ??25 mg, By Mouth, Daily Tamsulosin 0.4 mg Capsule (tamsulosin 0.4 mg oral capsule) ??0.4 mg, By Mouth, Daily at bedtime Trazodone 50 mg Tablet (traZODone 50 mg oral tablet) ??200 mg, By Mouth, Daily at bedtime CONTINUOUS: (0) PRN: (13) Acetaminophen 325 mg Tablet (Acetaminophen Tablet) ??650 mg, By Mouth, Every 4 hours Dextromethorphan-Guaifenesin 20 mg-200 mg/10 mL Liqu UD (Robitussin DM Liquid) ??10 mL, By Mouth, Every 4 hours Dextrose Inj Syringe (Dextrose 50% Inj Syringe (25Gm)) ??12.5 Gm, IV Push Slowly, Every 20 minutes Dextrose Inj Syringe (Dextrose 50% Inj Syringe (25Gm)) ??25 Gm, IV Push Slowly, Every 15 minutes Docusate Sodium 100 mg Capsule (Docusate Sodium Capsule) ??100 mg 1 capsule, By Mouth, 2 times a day Glucagon 1 mg Inj (Glucagon Inj) ??1 mg, Intramuscular, Once Glucose 40% Gel (15 Gm) (Glucose Gel) ??15 Gm, By Mouth, Every 20 minutes Glucose 40% Gel (15 Gm) (Glucose Gel) ??30 Gm, By Mouth, Every 20 minutes Melatonin 3 mg Tablet (Melatonin Tablet) ??3 mg, By Mouth, Daily at bedtime NaCl 0.9% Flush 3ml (NaCL 0.9% Flush) ??3 mL, IV Push, Every 8 hours Polyethylene Glycol 17 Gm Powder (MiraLax Powder) ??17 Gm 1 pack/packet, By Mouth, Daily Senna Tablet ??8.6 mg 1 tablet, By Mouth, 2 times a day Simethicone 80 mg Chewable Tablet (Simethicone Tablet) ??80 mg, Chew, 3 times a day Lab Results Cardiology Labs WBC: 7.2 k/mm3 (07/10/24) RBC: 5.52 m/mm3 (07/10/24) Hgb: 15.9 Gm/dL (07/10/24) Hct: 47.6 % (07/10/24) MCV: 86.2 femtoliters (07/10/24) MCH: 28.8 pg (07/10/24) MCHC: 33.4 Gm/dL (07/10/24) Platelet Count: 265 k/mm3 (07/10/24) RDW-SD: 44.7 femtoliters (07/10/24) Nucleated RBC (Automated): 0 #/100 WBC'S (07/10/24) Abs. Neut: 4.8 k/mm3 (07/10/24) Abs. Lymph: 1.4 k/mm3 (07/10/24) Abs. Howard: 0.6 k/mm3 (07/10/24) Abs. Eo: 0.2 k/mm3 (07/10/24) Abs. Baso: 0.1 k/mm3 (07/10/24) Neut %: 67.1 % (07/10/24) Howard %: 8.8 % (07/10/24) Eos %: 2.5 % (07/10/24) Baso %: 1.7 % (07/10/24) Imm Gran: 0.3 % (07/10/24) Abs. Imm Gran: 0 k/mm3 (07/10/24) Sodium: 142 mmol/L (07/10/24) Potassium:??3.3 mmol/L??Low (07/10/24) Chloride: 104 mmol/L (07/10/24) Bicarbonate Level: 24 mmol/L (07/10/24) Glucose Level: 94 mg/dL (07/10/24) BUN: 21 mg/dL (07/10/24) Creatinine-Blood:??1.23 mg/dL??High (07/10/24) Calcium: 9.2 mg/dL (07/10/24) Alkaline Phosphatase: 67 units/L (07/10/24) AST (SGOT): 20 units/L (07/10/24) ALT (SGPT):??43 units/L??High (07/10/24) Bilirubin, Total: 0.6 mg/dL (07/10/24) Nt-Probnp:??887 pg/mL??High (07/10/24) TSH: 3.81 uIU/mL (07/10/24) Diagnostic Impression ECG ECG 12-Lead * Preliminary * ?? 09:18:37 Ventricular Rate: 80 BPM Atrial Rate: 234 BPM QRS Duration: 154 ms Q-T Interval: 460 ms QTC Calculation(Bazett): 530 ms R Keeler: -53 degrees T Keeler: 66 degrees Atrial fibrillation Left bundle branch block Abnormal ECG When compared with ECG of 20-May-2019 17:59, Atrial fibrillation has replaced Sinus rhythm Left bundle branch block is now Present ?? [place]: , ?? ECG 12-Lead * Preliminary * ?? 09:18:37 Please click on pdf link to open report Problem List/Past Medical History Ongoing Acute systolic congestive heart failure Non-ischemic cardiomyopathy Paroxysmal atrial fibrillation Severe obesity (BMI 35.0-39.9) with comorbidity Procedure/Surgical History No qualifying data available. Family History No family history recorded. Patient Care team information Care Team Personnel Name: Rosalina Fraser RN Position: S RN Member Role: Primary Care Nurse Name: Napoleon Anderson RN Position: S RN Member Role: Primary Care Nurse Name: Holli Barroso RN Position: S RN Member Role: Primary Care Nurse Name: Gayle Oropeza RN Position: [facility] RN Member Role: Primary Care Nurse Name: Nuzhat Ewing RN Position: [facility] RN Member Role: Primary Care Nurse Name: Be Davey MD Position: Reference Physician Member Role: PCP Address: [address] [place] [address] Telecom: Name: Josselin Gan Position: [facility] TA Member Role: Nursing Name: Holli Barroso RN Position: S RN Member Role: Nursing Care Team Related Persons Name: MATT ROSE Name: GAY GLOVER Name: BE CHOI Insurance Providers Guarantor name: MAN Health Plan Information #: 2 Payer: [facility] Member Number: [id number] Policy Number: MAN Group Number: MAN Health Plan Information #: 1 Payer: NA Member Number: [id number] Policy Number: MAN Group Number: MAN
== END 2024-07-29 00:01 | disposition home or self-care (01) ==
LOC: CF
PROVIDERS: PCP Internal Medicine; Visit Provider Internal Medicine Cardiovascular Disease
DX: I42.8 Other cardiomyopathies (principal); I48.92 Unspecified atrial flutter
CPT/HCPCS: 93005; 99212

== ENCOUNTER 2024-07-29 12:17 | Outpatient (AMB) | payer OTHER, SELFPAY ==
--- NOTE | 2024-07-29 12:40 | A.OFFVIS_ITS ---
Vital Signs 07/29/24 12:41 Height 5 ft 2 in Weight 205 lb 0.478 oz BMI 37.5 BP 110/60 Blood Pressure Location Lt brachial Position Sitting Pulse 63 Pulse Source Monitor Intake Visit Reasons: 2-3 week f/up Intake Note: 2-3 wk f/up Revenue Liaison Required: Yes Revenue Liaison Language: Monkey Keeper Name: Gerardo [id number]/ yi Accompanied by: Self / Same As Patient Allergies No Known Allergies [No Known Allergies*] Allergy (Verified 07/07/24 23:23) Medication List - Last Reconciled 07/29/24 by Jaxon Trevino MD apixaban (Eliquis) 5 mg PO BID atorvastatin 40 mg PO DAILY blood sugar diagnostic (OneTouch Ultra Test strips) Use 1 test strip once a day blood-glucose meter (Blend TherapeuticsTouch Ultra2 Meter) As directed empagliflozin (Jardiance) 10 mg PO DAILY furosemide 40 mg PO BID lancets (FreeStyle Lancets) Use 1 lancet once a day lancets (OneTouch UltraSoft 2 Lancet) Use 1 lancet once a day metoprolol succinate ER 25 mg PO DAILY olanzapine 10 mg PO BEDTIME sacubitril-valsartan 24-26 mg 1 tab PO BID sertraline 50 mg PO DAILY spironolactone 25 mg PO DAILY tamsulosin (Flomax) 0.4 mg PO BEDTIME trazodone 200 mg PO BEDTIME HPI Comments Details: 63-year-old gentleman with NICM due to alcohol use. He stopped taking meds and his EF dropped to 20%. After discussion we resumed his meds and he has been compliant. Asymptomatic. His previous repeat echocardiography showed EF 30 35%. 04/17/2024: He is here for follow-up. He has background history of nonischemic cardiomyopathy likely due to alcohol use. It appears he has not stopped drinking till recently. He is saying he has completely stopped in the last 2 months. The is in the room and agrees with what he is saying. He had admission at [facility] with congestive heart failure and was in atrial fibrillation with rapid ventricular response. I have reviewed the strips and I am not sure whether he was in AFib or flutter. He was cardioverted with transesophageal echocardiogram and started on amiodarone and Eliquis. After that in the last week he also got admitted in hospital in [facility] while he was visiting his cousin. The limited information I see is that it was for acute exacerbation of heart failure. It appears his Entresto dose was decreased there to 24-26. His metoprolol was also decreased to 25 mg daily. Spironolactone 25 mg was added. He is denying any symptoms currently but EKGs showing atrial flutter with variable block currently. Discussing with him he has not been taking Eliquis twice a day and after taking it b.i.d. for a week he has decrease the dose to once a day. He is saying that this is what he was instructed before. 07/29/2024: He is here for follow-up. He was admitted at [facility] in June 2024 and was transferred to [facility] where he was seen by electrophysiology and underwent ablation for atrial fibrillation and Bi V AICD placement. He is saying he has been feeling significantly better since then and feels like a new man. No chest pains or shortness of breath. No orthopnea or PND. He is stopped drinking alcohol. Taking medicines regularly blood pressure is well controlled. 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 pylori) GERD (gastroesophageal reflux disease) Breast pain Dyslipidemia Essential hypertension Obese Abdominal mass Insomnia Surgical History H/O abdominal surgery History of colonoscopy Family History Father No problems noted. Mother Kidney failure Social History Household Members: None Housing: Apartment Do you presently have visiting nurse or other home services: No Alcohol intake: former Patient Tobacco Use Status: Former Tobacco user Tobacco use type: Cigarette e-Cigarette/Vaping Use: Never Used Second Hand Smoke Exposure: No service: No Current occupational status: retired Cognitive needs: No Hearing needs: No Vision needs: No Physical Exam Vital Signs: Last Vital Signs Pulse 63 07/29/24 12:41 BP 110/60 07/29/24 12:41 BMI result Body Mass Index 37.5 GENERAL APPEARANCE: in no acute distress, well developed, well nourished. NECK/THYROID: no carotid bruit, no jugular venous distention. SKIN: Device site on left chest wall stable. HEART: no murmurs, regular rate and rhythm, S1, S2 normal. LUNGS: clear to auscultation bilaterally. ABDOMEN: normal, bowel sounds present, soft, nontender, nondistended. EXTREMITIES: no edema. PERIPHERAL PULSES: equal. NEUROLOGIC: nonfocal, alert and oriented. PSYCH: mood/affect full range. Office Procedures EKG Details: Sinus rhythm 63 beats per minute, left axis deviation, biventricular pacing with QRS duration 142 milliseconds. QTC 503 milliseconds. [id number], Complete Quality Reporting (2019) Adult ([facility] ) Smoking risk assessment performed?: Yes Patient Tobacco Use Status: Former Tobacco user Assessment & Plan Assessment & Plan (1) NICM (nonischemic cardiomyopathy): Comment: Clinically compensated Code(s): I42.8 - Other cardiomyopathies Category: Medical (2) Atrial flutter: Code(s): I48.92 - Unspecified atrial flutter Category: Medical Plan 63-year-old gentleman who is here for follow-up. He was admitted to [facility] and underwent RO[place]ARY cardioversion. Subsequently in June he got admitted again with heart failure and AFib. He was transferred to [facility] where he underwent ablation for atrial fibrillation and had a Bi V ICD placed by Dr. Canales. He is doing really good since then. Clinically euvolemic. Denying any symptoms. Blood pressure well controlled. Continue same medicines for now. We will repeat echocardiography in few months and bring him back for follow-up. Thank you for allowing me to participate in the care of your patient. Please feel free to contact me if you have any questions. Orders: Orders CA echo transthoracic complete 3 Months I50.22 - Chronic systolic (congestive) heart failure Medications: Changed From atorvastatin 40 mg PO DAILY To atorvastatin 80 mg PO DAILY 90 tabs 0RF Coding Level of Care Code Est Pt Level 4 (95363) Diagnoses NICM (nonischemic cardiomyopathy) I42.8 Atrial flutter I48.92 CPT Codes EKG - CPT: 88496-[id number], Complete ([id number])
[2024-07-29 12:41] VITALS: BP 110/60; PULSE 63; BMI 37.5
== END 2024-07-29 13:16 | disposition home or self-care (01) ==
PROVIDERS: PCP Internal Medicine; Visit Provider Internal Medicine Cardiovascular Disease
DX: I42.8 Other cardiomyopathies (principal); I48.92 Unspecified atrial flutter
CPT/HCPCS: 93010; 99214

== ENCOUNTER 2024-08-22 12:08 | Outpatient (AMB) | payer OTHER, SELFPAY ==
--- NOTE | 2024-08-22 12:24 | MHC.PC.OV ---
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: No Accompanied by: Self / Same As Patient Allergies No Known Allergies [No Known Allergies*] Allergy (Verified 08/22/24 13:16) Medication List - Last Reconciled 08/22/24 by Gina Le MD apixaban (Eliquis) 5 mg PO BID atorvastatin 80 mg PO DAILY blood sugar diagnostic (OneTouch Ultra Test strips) Use 1 test strip once a day blood-glucose meter (OneTouch Ultra2 Meter) As directed empagliflozin (Jardiance) 10 mg PO DAILY furosemide 40 mg PO BID lancets (FreeStyle Lancets) Use 1 lancet once a day lancets (OneTouch UltraSoft 2 Lancet) Use 1 lancet once a day metoprolol succinate ER 25 mg PO DAILY olanzapine 10 mg PO BEDTIME sacubitril-valsartan 24-26 mg 1 tab PO BID sertraline 50 mg PO DAILY spironolactone 25 mg PO DAILY tamsulosin (Flomax) 0.4 mg PO BEDTIME trazodone 200 mg PO BEDTIME Tobacco use date assessed: 08/22/24 Fall risk assessment: No Falls in past year Last assessed Fall Risk: 08/22/24 Dental Screening Dental Screen Date: 08/22/24 Did you have a dental visit in the last 12 months?: No Did you have a dental problem in the last 6 months where you did not have access to dental care?: No Was dental information given to patient?: Patient has dentist HPI HPI Comments History of Present Illness Details This is a 63-year-old male with persistent atrial fibrillation, chronic systolic congestive heart failure secondary to alcohol, insomnia due to alcohol and mild major depression that comes today for follow-up on his conditions. He was hospitalized last month and had a defibrillator by electrophysiology. Last ejection fraction was 10-15% by ROSEMARY done in March of last year. After the procedure he feels markedly improved. He does have gain 5 lb since last month but says that he is eating more. Atrial fibrillation and congestive heart failure are follow by cardiology. He still drinks alcohol but says that has cut down on drinking. I advised to stop drinking alcohol completely. Has history of mild major depression and insomnia stable with medications. Will have labs ordered. Patient complains of a collection of fat in his left arm that wants to be removed and would like a referral for surgery. [facility] Medical History (Updated 08/22/24 @ 13:13 by Gina Le MD) CHF exacerbation Acute on chronic systolic and diastolic heart failure, NYHA class 3 Persistent atrial fibrillation Congestive heart failure Atrial flutter Atrial fibrillation with rapid ventricular response Atrial fibrillation Alcohol use Hyperlipidemia LDL goal <70 Chronic sore throat Colon perforation Foreign body in sigmoid colon Onychomycosis 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 pylori) GERD (gastroesophageal reflux disease) Breast pain Dyslipidemia Essential hypertension Obese Abdominal mass Insomnia Surgical History H/O abdominal surgery History of colonoscopy Family History Father No problems noted. Mother Kidney failure Social History Household Members: None Housing: Apartment Do you presently have visiting nurse or other home services: No Alcohol intake: former Patient Tobacco Use Status: Former Tobacco user Tobacco use type: Cigarette e-Cigarette/Vaping Use: Never Used Second Hand Smoke Exposure: No service: No Current occupational status: retired Cognitive needs: No Hearing needs: No Vision needs: No Questionnaire PHQ-9 Over the last 2 weeks, how often have you been bothered by any of the following problems? 1. Little interest or pleasure in doing things: several days 2. Feeling down, depressed, or hopeless: several days 3. Trouble falling or staying asleep, or sleeping too much: several days 4. Feeling tired or having little energy: several days 5. Poor appetite or overeating: more than half the days 6. Feeling bad about yourself - or that you are a failure or have let yourself or your family down: several days 7. Trouble concentrating on things, such as reading the newspaper or watching television: not at all 8. Moving or speaking so slowly that other people could have noticed. Or the opposite - being so fidgety or restless that you have been moving around a lot more than usual: not at all 9. Thoughts that you would be better off or of hurting yourself in some way: not at all Total score: 7 Depression Screening Interpretation: Positive Depression Screening Follow-up: Existing condition, In treatment, Community Mental Health Worker F/U and Follow-up Visit Requested Depression Screening Done: Yes 08171 - PHQ-9 Billing: Yes Source: Developed by Drs. Elias Schilling, Barbie Teague, Flavio Calvin and colleagues, with an educational elroy from [employer]. Thrive Questionnaire Date Thrive assessed: 08/22/24 I am a: Patient What is your living situation today?: I have a steady place to live Within the past 12 months, did the food you bought not last and you didn't have the money to get more?: Never true Within the past 12 months, did you worry whether your food would run out before you got money to buy more?: Never true Do you have trouble paying for medicines?: No Do you have trouble getting transportation to medical appointments?: No Do you have trouble paying your heating and electricity bill?: No Do you have trouble taking care of your child, family member or friend?: No Do you have trouble with day-to-day activities such as bathing, preparing meals, shopping, managing finances, etc.?: No Are you currently unemployed and looking for a job?: No Are you interested in more education?: No Please select the resources that you would like help with: None THRIVE Score: 0 AUDIT C Alcohol Use Questionnaire (AUDIT-C) 1. How often do you have a drink containing alcohol?: 2-4 times a month 2. How many drinks containing alcohol do you have on a typical day when you are drinking?: 3 or 4 3. How often do you have six or more drinks on one occasion?: Never Total Score: 3 Score Reviewed/Action Taken: Yes MIGUELINA-7 AMB Questionnaire MIGUELINA-7 Date MIGUELINA - 7 assessed: 08/22/24 Feeling nervous, anxious, or on edge: 2 = More than half the days Not being able to stop or control worryin = Not at all Worrying too much about different things: 1 = Several days Trouble relaxin = Not at all Being so restless that it is hard to sit still: 0 = Not at all Becoming easily annoyed or irritable: 1 = Several days Feeling afraid as if something awful might happen: 1 = Several days Total MIGUELINA-7 score (0-4 normal; 5-9 mild; 10-14 moderate; 15-21 severe): 5 Source: Developed by Drs. Elias Schilling, Barbie Teague, Flavio Calvin and colleagues, with an educational elroy from [employer]. MIGUELINA-7 Assessment Billing MIGUELINA-7 Assessment Tool: MIGUELINA-7 Assessment 00461 Review of Systems Const All systems reviewed & are unremarkable except as noted in HPI and below Card Denies chest pain at rest, Denies chest pain with activity, Denies edema, Denies irregular heart rhythm, Denies claudication, Denies dyspnea, Denies dyspnea on exertion, Denies orthopnea, Denies paroxysmal nocturnal dyspnea and Denies slow heart rate Resp Denies cough, Denies dyspnea and Denies dyspnea on exertion GI Denies abdominal pain, Denies change in bowel habits, Denies excessive flatus, Denies nausea and Denies vomiting Physical exam (Primary Care) Vital Signs: Last Vital Signs BP 128/82 08/22/24 12:39 BMI result Body Mass Index 38.4 BMI Assessment/Plan discussion: High BMI High, discussed plan: lifestyle, weight reduction, dietary and physical activity Tobacco/Smoking Status: Tobacco use Status Tobacco use date assessed 08/22/24 08/22/24 12:43 Patient Tobacco Use Status Former Tobacco user 08/22/24 12:26 Tobacco use type Cigarette 08/22/24 12:26 e-Cigarette/Vaping Use Never Used 08/22/24 12:26 PHQ-9: PHQ-9 Score PHQ-9: Total score 7 08/22/24 12:49 Depression Screening Interpretation: Positive Depression Screening Follow-up: Existing condition, In treatment, Community Mental Health Worker F/U and Follow-up Visit Requested Thrive Assessment: Date of Thrive Assessment Date Thrive assessed 08/22/24 08/22/24 12:33 Resp Effort & Inspection: normal respiratory effort Auscultation: clear to auscultation bilaterally Cardio Jugular venous distension: no JVD Rate: regular rate Rhythm: regular rhythm Heart sounds: S1 normal heart sound present and S2 normal heart sound present Extrem General: Yes full ROM Coding Level of Care Code Est Pt Level 4 (79666) Complex EM visit Add On G2211 Diagnoses Persistent atrial fibrillation I48.19 Lipoma D17.9 Chronic systolic heart failure I50.22 Mild recurrent major depression F33.0 Insomnia due to alcohol F10.982 Additional Codes MIGUELINA-7 Assessment Billing - MIGUELINA-7 Assessment Tool: MIGUELINA-7 Assessment 74717 ([id number]) PHQ-9 - 69400 - PHQ-9 Billing: Yes ([id number]) Time Spent (min) 21 Assessment & Plan Assessment & Plan (1) Persistent atrial fibrillation: Code(s): I48.19 - Other persistent atrial fibrillation Category: Medical Plan: Continue chronic anticoagulation. Follow-up with Cardiology. (2) Lipoma: Code(s): D17.9 - Benign lipomatous neoplasm, unspecified Category: Medical Plan: Referred to surgery. (3) Chronic systolic heart failure: Code(s): I50.22 - Chronic systolic (congestive) heart failure Category: Medical Plan: Continue spironolactone, Entresto and Jardiance. The goal is to not gain 5 lb in a week. Follow-up with Cardiology. (4) Mild recurrent major depression: Code(s): F33.0 - Major depressive disorder, recurrent, mild Category: Medical Plan: Continue sertraline. (5) Insomnia due to alcohol: Code(s): F10.982 - Alcohol use, unspecified with alcohol-induced sleep disorder Category: Medical Plan: Continue trazodone. Was advised to stop drinking alcohol. Orders: Orders Comprehensive [place]. Panel Fast Today I48.19 - Other persistent atrial fibrillation Lipid Panel Today E78.5 - Hyperlipidemia, unspecified Microalbumin, Random (w Creat) Today R80.9 - Proteinuria, unspecified NT-proBNP Today I50.22 - Chronic systolic (congestive) heart failure Referrals General Surgery Referral D17.9 - Benign lipomatous neoplasm, unspecified
[2024-08-22 12:39] VITALS: BP 128/82; BMI 38.4
== END 2024-08-22 12:57 | disposition home or self-care (01) ==
PROVIDERS: PCP Internal Medicine; Visit Provider Internal Medicine
DX: I48.19 Other persistent atrial fibrillation (principal); I50.22 Chronic systolic (congestive) heart failure; F33.0 Major depressive disorder, recurrent, mild; F10.982 Alcohol use, unspecified with alcohol-induced sleep disorder; D17.9 Benign lipomatous neoplasm, unspecified

== ENCOUNTER → 2024-08-22 12:08 | Outpatient (BNVA) | payer OTHER, SELFPAY | PROVIDERS: PCP Internal Medicine; Visit Provider Internal Medicine | DX: I48.19 Other persistent atrial fibrillation (principal); I50.22 Chronic systolic (congestive) heart failure; D17.9 Benign lipomatous neoplasm, unspecified; F33.0 Major depressive disorder, recurrent, mild; F10.982 Alcohol use, unspecified with alcohol-induced sleep disorder; E78.5 Hyperlipidemia, unspecified; R80.9 Proteinuria, unspecified | CPT/HCPCS: 96127; 99212 ==

== ENCOUNTER 2024-08-27 07:57 | Outpatient (REF) | payer OTHER, SELFPAY ==
--- OUTSIDE RECORDS SUMMARY | 2024-08-27 08:55 | XMS_ITS | Continuity of Care Document ---
Author Organization [facility] Address [address] [place] [id number]- Care Team Providers Care Linux Admin Name Role Phone Jamie Le MD, Gina Prieto Primary Care Physician Encounter [facility] Date(s): 07/25/24 - 08/24/24 [facility] [address] [place] [id number]- Attending Physician: Kirit Bedolla Admitting Physician: Kirit Bedolla Referring Physician: AdmtrKirit Encounter Type: Triage Allergies, Adverse Reactions, Alerts No Known Allergies Immunizations Given and Recorded Vaccine Date Status Refusal Reason pneumococcal 23-valent vaccine 05/21/19 Given influenza virus vaccine, inactivated 05/21/19 Give n Medications amiodarone 200 mg oral tablet TAKE 1 TABLET BY MOUTH EVERY DAY Start Date: 07/12/24 Status: Ordered Repeat number: 1 atorvastatin 40 mg oral tablet 1 tablet = 40 mg, By Mouth, Daily, # 30 tablet, 5 Refills, Maintenance, 07/14/24 12:24:00 PM EST, Tablet, [facility], Partial fill upon patient [...] Refills, Maintenance, 07/14/24 12:24:00 PM EST, Tablet, [facility], Partial fill upon patient [...] Date: 07/12/24 Status: Ordered Repeat number: 1 sertraline 50 mg oral [...] obesity (BMI 35.0-39.9) with comorbidity Confirmed Active Cardiology * Event Display: EKG Non BH Authored Date: * Event Display: EKG Non BH Authored Date: * Event Display: Holter Monitor Non BH Authored Date: * Event Display: Cardiology Office Note, Non-BH Authored Date: * Event Display: Cardiology Office Note, Non-BH Authored Date: Radiology * Event Display: X-Ray Chest, Non- BH Authored Date: * Event Display: X-Ray Chest, Non- BH Authored Date: * Event Display: CT Scan Chest, Non- BH Authored Date: * Event Display: X-Ray Chest, Non- BH Authored Date: * Event Display: CT Scan Chest, Non- BH Authored Date: * Event Display: CT Scan Abdomen, Non- BH Authored Date: Patient Care team information Care Team Personnel Name: Rosalina Fraser RN Position: S RN Member Role: Primary Care Nurse Name: Napoleon Anderson RN Position: S RN Member Role: Primary Care Nurse Name: Holli Barroso RN Position: S RN Member Role: Primary Care Nurse Name: Gayle Oropeza RN Position: S RN Member Role: Primary Care Nurse Name: Nuzhat Ewing RN Position: [facility] RN Member Role: Primary Care Nurse Name: Gina Davey MD Position: Reference Physician Member Role: PCP Address: [address] [place] [id number] Telecom: Care Team Related Persons Name: MATT ROSE Name: GAY DUNN Name: GINA CHOI Insurance Providers Guarantor name: MAN Health Plan Information #: 1 Payer: MAN Member Number: MAN Policy Number: MAN Group Number: [id number]
--- OUTSIDE RECORDS SUMMARY | 2024-08-27 08:55 | XMS_ITS | Continuity of Care Document ---
Author Organization [facility] Address [address] [place] [id number]- Care Team Providers Care Bioinformatics Scientist Name Role Phone Jamie Le MD, Gina Prieto Primary Care Physician [phone] [id number] Date(s): 06/28/24 - 08/24/24 [facility] [address] [place] [address]- Attending Physician: Sudhir Romero DO Admitting Physician: Sudhir Romero DO Referring Physician: Ra CHAUDHRY [facility] Encounter Type: Pre-OutPatient One Time Allergies, Adverse Reactions, Alerts No Known Allergies [...] Refills, Maintenance, 07/14/24 12:24:00 PM EST, Tablet, [facility], Partial fill upon patient [...] Refills, Maintenance, 07/14/24 12:24:00 PM EST, Tablet, [facility], Partial fill upon patient [...] obesity (BMI 35.0-39.9) with comorbidity Confirmed Active Patient Care team information Care Team Personnel Name: Rosalina Fraser RN Position: S RN Member Role: Primary Care Nurse Name: Napoleon Anderson RN Position: S RN Member Role: Primary Care Nurse Name: Holli Barroso RN Position: S RN Member Role: Primary Care Nurse Name: Gayle Oropeza RN Position: S RN Member Role: Primary Care Nurse Name: Nuzhat Ewing RN Position: S RN Member Role: Primary Care Nurse Name: Jamie Le MD , Gina Prieto Position: Reference Physician Member Role: PCP Address: [address] [place] [address] [address] [place], [place] [address] Telecom: Care Team Related Persons Name: MATT ROSE Name: GAY DUNN Name: GINA CHOI Insurance Providers Guarantor name: MAN Health Plan Information #: 2 Payer: [facility] Member Number: [id number] Policy Number: MAN Group Number: MAN Health Plan Information #: 1 Payer: Member Number: [id number] Policy Number: MAN Group Number: [id number]
== END 2024-08-27 07:58 | disposition home or self-care (01) ==
LOC: HO.LNP 07:57
PROVIDERS: PCP Internal Medicine; Referring Provider Internal Medicine; Visit Provider Surgery
CPT/HCPCS: 11406; 88304; 99202

== ENCOUNTER 2024-08-27 07:57 | Outpatient (AMB) | payer OTHER, SELFPAY ==
--- NOTE | 2024-08-27 08:05 | A.OFFVIS_ITS ---
Vital Signs 08/27/24 08:07 Height 5 ft 2 in Weight 210 lb BMI 38.4 BP 129/73 Blood Pressure Location Rt brachial Position Sitting Pulse 52 Intake Visit Reasons: Lipoma~ Lt arm Intake Note: Patient referred by pcp Dr. Jamie Le for ? lipoma on Lt arm. Present for 5yrs. Patient c/o: enlarging. Denies pain, rash. Medical Clinic Manager Required: No Accompanied by: Self / Same As Patient Allergies No Known Allergies [No Known Allergies*] Allergy (Verified 08/27/24 08:06) Medication List - Last Reconciled 08/27/24 by Gold Webster MD apixaban (Eliquis) 5 mg PO BID atorvastatin 80 mg PO DAILY blood sugar diagnostic (ChupaMobileTouch Ultra Test strips) Use 1 test strip once a day blood-glucose meter (Safehisuch Ultra2 Meter) As directed empagliflozin (Jardiance) 10 mg PO DAILY furosemide 40 mg PO BID lancets (FreeStyle Lancets) Use 1 lancet once a day lancets (ChupaMobileTouch UltraSoft 2 Lancet) Use 1 lancet once a day metoprolol succinate ER 25 mg PO DAILY olanzapine 10 mg PO BEDTIME sacubitril-valsartan 24-26 mg 1 tab PO BID sertraline 50 mg PO DAILY spironolactone 25 mg PO DAILY tamsulosin (Flomax) 0.4 mg PO BEDTIME trazodone 200 mg PO BEDTIME HPI Comments Details: Patient presents for evaluation of 1. Left upper arm lipoma. 2. Umbilical hernia. Lipoma has been present for many years time. It has significantly increased in size and become more symptomatic. He would like to have removed. Umbilical hernia he has been present for indeterminate time. At present, it is minimally symptomatic. Patient was tolerating a diet. Having regular bowel habits. [facility] Medical History CHF exacerbation Acute on chronic systolic and diastolic heart failure, NYHA class 3 Persistent atrial fibrillation Congestive heart failure Atrial flutter Atrial fibrillation with rapid ventricular response Atrial fibrillation Alcohol use Hyperlipidemia LDL goal <70 Chronic sore throat Colon perforation Foreign body in sigmoid colon Onychomycosis 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 pylori) GERD (gastroesophageal reflux disease) Breast pain Dyslipidemia Essential hypertension Obese Abdominal mass Insomnia Surgical History H/O abdominal surgery History of colonoscopy Family History Father No problems noted. Mother Kidney failure Social History Household Members: None Housing: Apartment Do you presently have visiting nurse or other home services: No Alcohol intake: former Patient Tobacco Use Status: Former Tobacco user Tobacco use type: Cigarette e-Cigarette/Vaping Use: Never Used Second Hand Smoke Exposure: No service: No Current occupational status: retired Cognitive needs: No Hearing needs: No Vision needs: No Physical Exam Vital Signs: Last Vital Signs Pulse 52 08/27/24 08:07 BP 129/73 08/27/24 08:07 BMI result Body Mass Index 38.4 GI Other: Corpulent abdomen. Patient was examined both supine and standing with Valsalva. Upper midline incision from foreign body ingestion with bowel perforation of the bone many years ago. Rectus diastasis supraumbilically. Small 2 cm reducible umbilical hernia. Bilateral groin exam negative. Extrem Other: Patient has a 5 x 3 cm left mid biceps soft tissue mass consistent with a large lipoma. Office Procedures Excision Details: Risks, benefits, alternatives of excision of left upper arm lipoma reviewed with the patient and included but not limited to bleeding, infection, recurrence, numbness, pain, scarring, seroma formation and the patient wished to proceed. All questions answered. Consent site. After appropriate positioning, patient underwent 1% lidocaine and Betadine prep and longitudinal incision was made over the lipoma and carried down through skin, subcutaneous tissue, were medial and lateral skin flaps were developed and uneventful enucleation/excision of left upper arm lipoma was uneventfully performed. Specimen sent to pathology. Wound was irrigated, secured hemostasis, and closed using running subcuticular 3-0 Vicryl suture followed by Steri-Strips and sterile dressings. Patient tolerated procedure well. 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 No strenuous activities. All questions answered. Orders: Orders AMB Excision Today D17.9 - Benign lipomatous neoplasm, unspecified Surgical Today D17.9 - Benign lipomatous neoplasm, unspecified Medications: New lidocaine-epinephrine 1 %-1:100,000 20 mL Infiltration ONCE 30 mL 0RF D17.9 - Benign lipomatous neoplasm, unspecified Coding Level of Care Code New Pt Level 5 (71881) Diagnoses Lipoma D17.9 CPT Codes Trunk/Arms/Legs - CPT: 82176-tbxct/arms/legs >4cm ([id number])
[2024-08-27 08:07] VITALS: BP 129/73; PULSE 52; BMI 38.4
== END 2024-08-27 08:36 | disposition home or self-care (01) ==
PROVIDERS: PCP Internal Medicine; Referring Provider Internal Medicine; Visit Provider Surgery
DX: D17.9 Benign lipomatous neoplasm, unspecified (principal); K42.9 Umbilical hernia without obstruction or gangrene
CPT/HCPCS: 11406; 99204

== ENCOUNTER 2024-09-04 09:08 | Outpatient (AMB) | payer OTHER, SELFPAY ==
--- NOTE | 2024-09-04 09:13 | A.OFFVIS_ITS ---
Intake Visit Reasons: s/p excision Lipoma~ Lt arm Intake Note: Patient here s/p lipoma excision on Lt upper arm. Reports incision healing well. Patient c/o: denies pain, oozing, itch. Vice President Tax Required: No Accompanied by: Self / Same As Patient Allergies No Known Allergies [No Known Allergies*] Allergy (Verified 09/04/24 09:14) HPI Comments Details: Patient presents 1. For follow-up status post left forearm excision 2. Question of a right upper quadrant abdominal mass. 1. No incisional issues or complaints. Pathology is benign. 2. Patient thinks he has a mass or hernia involving his right upper abdominal wall. This has been going on for several weeks time. He thinks he feels a mass there. [facility] Medical History CHF exacerbation Acute on chronic systolic and diastolic heart failure, NYHA class 3 Persistent atrial fibrillation Congestive heart failure Atrial flutter Atrial fibrillation with rapid ventricular response Atrial fibrillation Alcohol use Hyperlipidemia LDL goal <70 Chronic sore throat Colon perforation Foreign body in sigmoid colon Onychomycosis 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 pylori) GERD (gastroesophageal reflux disease) Breast pain Dyslipidemia Essential hypertension Obese Abdominal mass Insomnia Surgical History H/O abdominal surgery History of colonoscopy Family History Father No problems noted. Mother Kidney failure Social History Household Members: None Housing: Apartment Do you presently have visiting nurse or other home services: No Alcohol intake: former Patient Tobacco Use Status: Former Tobacco user Tobacco use type: Cigarette e-Cigarette/Vaping Use: Never Used Second Hand Smoke Exposure: No service: No Current occupational status: retired Cognitive needs: No Hearing needs: No Vision needs: No Physical Exam GI Other: Patient was examined both supine and standing with Valsalva. Very protuberant corpulent abdomen. No obvious hernias or soft tissue masses in the right side of the abdomen over the patient's area of concern. Extrem Other: Left forearm incision clean dry and intact healing very well Quality Reporting (2019) Adult ([facility] 138/10/05/68) Smoking risk assessment performed?: Yes Patient Tobacco Use Status: Former Tobacco user Assessment & Plan Assessment & Plan (1) Postop check: Code(s): Z09 - Encounter for follow-up examination after completed treatment for conditions other than malignant neoplasm Category: Surgical (2) Status post excision of lipoma: Code(s): Z98.890 - Other specified postprocedural states; Z86.018 - Personal history of other benign neoplasm Category: Surgical (3) Abdominal wall mass of right upper quadrant: Code(s): R19.01 - Right upper quadrant abdominal swelling, mass and lump Category: Surgical Plan 1. Patient was given local instructions status post forearm excision. 2. Because of the unclear nature of the patient's symptoms, and a difficult exam secondary to the patient's corpulent, to sound of the area will be undertaken he will see me after this. Coding Level of Care Code Est Pt Level 4 (22024) Global (24967) Diagnoses Postop check Z09 Status post excision of lipoma Z98.890; Z86.018 Abdominal wall mass of right upper quadrant R19.01
--- OUTSIDE RECORDS SUMMARY | 2024-09-04 09:33 | XMS_ITS | Clinical Summary ---
[facility] Address [address] [place] [id number] Care Team Providers Care Wad Compressor Operator Adjuster Name Role Phone Gina Le MD Primary Care Provider [phone] Social History Tobacco Use Types Packs/Day Years Used Date Smoking Tobacco: Never Alcohol Use Standard Drinks/Week Comments Yes 0 (1 standard drink = 0.6 oz pur e alcohol) Sex and Gender Information Value Date Recorded Sex Assigned at Not on file Gender Identity Not on file Sexual Orientation Not on file Obstetrics History Last Filed Vital Signs Vital Sign Reading Time Taken Comments Blood Pressure 119/70 06/22/2022 1:06 PM EST Pulse 54 06/22/2022 1:06 PM EST Temperature - - Respiratory Rate - - Oxygen Saturation - - Inhaled Oxygen Concentration - - Weight 90 kg (198 lb 6.4 oz) 06/22/2022 1:06 PM EST Height - - Body Mass Index - - Plan of Treatment Health Maintenance Due Date Last Done Comments DTaP,Tdap,and Td Vaccines (1 - Tdap) 1977 Zoster Vaccines (1 of 2) 2008 Abdominal Aortic Aneurysm (A AA) Screen 07/17/2022 Cholesterol Screening (Lipid Panel) 07/17/2022 Colorectal Cancer Screening: Colonoscopy 07/17/2022 Depression Screening 07/17/2022 Hepatitis C Screening 07/17/2022 Social Influencers of Health Screening 07/17/2022 Falls Risk Assessment 11/10/2023 Pneumococcal Vaccine: 65+ Ye ars (1 of 1 - PCV) 11/10/2023 COVID-19 Vaccine ( - 2023-2 5 season) 2024 Influenza Vaccine (#1) 2024 RSV Immunization Patients 60 + Years Old (1 - 1-dose 75+ series) 2033 HIB Vaccines Aged Out No longer eligi ble based on patient's age to complete this topic HPV Vaccines Aged Out No longer eligi ble based on patient's age to complete this topic Hepatitis A Vaccines Aged Out No long er eligible based on patient's age to complete this topic Hepatitis B Vaccines Aged Out No long er eligible based on patient's age to complete this topic IPV Vaccines Aged Out No longer eligi ble based on patient's age to complete this topic MMR Vaccines Aged Out No longer eligi ble based on patient's age to complete this topic Meningococcal ACWY Vaccine Aged Out N o longer eligible based on patient's age to complete this topic Pneumococcal Vaccine: Pediat rics (0 to 5 Years) and At-Risk Patients (6 to 64 Years) Aged Out No longer eligible b ased on patient's age to complete this topic RSV Immunization Patients Un chloé 20 months Aged Out No longer eligible b ased on patient's age to complete this topic Varicella Vaccines Aged Out No longer eligible based on patient's age to complete this topic Care Teams Wad Compressor Operator Adjuster Relationship Specialty Start Date End Date Gina Le MD [address] [place] [address] , [address] [facility] [place] PCP - General 10/04/22
== END 2024-09-04 09:19 | disposition home or self-care (01) ==
PROVIDERS: PCP Internal Medicine; Visit Provider Surgery
DX: R19.01 Right upper quadrant abdominal swelling, mass and lump (principal)
CPT/HCPCS: 99213

== ENCOUNTER → 2024-09-04 09:08 | Outpatient (BNVA) | payer OTHER, SELFPAY | PROVIDERS: PCP Internal Medicine; Visit Provider Surgery | DX: R19.01 Right upper quadrant abdominal swelling, mass and lump (principal); Z09 Encounter for follow-up examination after completed treatment for conditions other than malignant neoplasm; Z98.890 Other specified postprocedural states; Z86.018 Personal history of other benign neoplasm | CPT/HCPCS: 99212 ==

== ENCOUNTER 2024-09-16 00:47 | Emergency (ER) | payer OTHER, SELFPAY ==
[2024-09-16 01:05] VITALS: BP 125/71; PULSE 64; RESP 20; TEMP 36.6; O2SAT 94; BMI 33.4
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
[2024-09-16 01:08] VITALS: PULSE 78; O2SAT 98
[2024-09-16 02:37] VITALS: PULSE 64
[2024-09-16] MEDS: Escitalopram Oxalate 10 MG TABLET 30 MG PO (02:52)
[2024-09-16 02:55] VITALS: BP 125/71
[2024-09-16] MEDS: amLODIPine Besylate 5 MG TABLET PO (02:55)
[2024-09-16 06:19] VITALS: BP 127/67; PULSE 53; RESP 16; TEMP 36.3; O2SAT 95
--- NOTE | 2024-09-16 07:38 | PC.NURSE ---
Patient able to ambulate with steady gait, discharge paperwork reviewed with patient using Yakut interprter, patient verbalized understanding
[2024-09-16 07:43] VITALS: BP 127/67; PULSE 53; RESP 16; TEMP 36.3; O2SAT 95
== END 2024-09-16 07:45 | disposition home or self-care (01) ==
PROVIDERS: Emergency Provider Emergency Medicine Emergency Medical Services; PCP Internal Medicine
DX: F10.129 Alcohol abuse with intoxication, unspecified (principal); Y90.8 Blood alcohol level of 240 mg/100 ml or more; R41.82 Altered mental status, unspecified; I10 Essential (primary) hypertension; Z79.899 Other long term (current) drug therapy; Z87.891 Personal history of nicotine dependence; Z71.41 Alcohol abuse counseling and surveillance of alcoholic
CPT/HCPCS: 99283; 99284

== ENCOUNTER → 2024-09-19 12:16 | Outpatient (REF) | payer OTHER, SELFPAY ==
--- OUTSIDE RECORDS SUMMARY | 2024-09-19 12:18 | XMS_ITS | Clinical Summary ---
Author Organization [facility] Address [address] [place] [id number] Care Team Providers Care Cold Water Machine Operator Name Role Phone Gina Le MD Primary Care Provider [phone] Social History Tobacco Use Types Packs/Day Years [...] age to complete this topic Care Teams Cold Water Machine Operator Relationship Specialty Start Date End Date Gina Le MD [address] [place] [address] , [address] [facility] D[facility]: [facility] [place] [place] PCP - General 10/04/22
== END | disposition home or self-care (01) ==
LOC: HO.US 12:16
PROVIDERS: PCP Internal Medicine; Visit Provider Surgery
DX: R19.09 Other intra-abdominal and pelvic swelling, mass and lump (principal)

== ENCOUNTER → 2024-09-19 12:18 | Outpatient (BNV) | payer OTHER, SELFPAY | PROVIDERS: PCP Internal Medicine; Visit Provider Specialist | DX: R19.09 Other intra-abdominal and pelvic swelling, mass and lump (principal) | CPT/HCPCS: 76705 ==

== ENCOUNTER 2024-09-25 08:38 | Outpatient (AMB) | payer OTHER, SELFPAY ==
--- NOTE | 2024-09-25 08:41 | A.OFFVIS_ITS ---
Intake Visit Reasons: Abd US Intake Note: Patient here to discuss Abd/ US from 09-19-2024 results. Fish Farmer Required: No Accompanied by: Self / Same As Patient Allergies No Known Allergies [No Known Allergies*] Allergy (Verified 09/25/24 08:41) HPI Comments Details: Patient presents for follow-up regarding right-sided abdominal discomfort. He states his symptoms are improving. Ultrasound demonstrates no obvious pathology or hernias. [facility] Medical History CHF exacerbation Acute on chronic systolic and diastolic heart failure, NYHA class 3 Persistent atrial fibrillation Congestive heart failure Atrial flutter Atrial fibrillation with rapid ventricular response Atrial fibrillation Alcohol use Hyperlipidemia LDL goal <70 Chronic sore throat Colon perforation Foreign body in sigmoid colon Onychomycosis 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 pylori) GERD (gastroesophageal reflux disease) Breast pain Dyslipidemia Essential hypertension Obese Abdominal mass Insomnia Surgical History H/O abdominal surgery History of colonoscopy Family History Father No problems noted. Mother Kidney failure Social History Household Members: None Housing: Apartment Do you presently have visiting nurse or other home services: No Alcohol intake: former Patient Tobacco Use Status: Former Tobacco user Tobacco use type: Cigarette e-Cigarette/Vaping Use: Never Used Second Hand Smoke Exposure: No service: No Current occupational status: retired Cognitive needs: No Hearing needs: No Vision needs: No Physical Exam GI Other: Abdominal exam is status quo. Corpulent abdomen. Benign. No evidence of any hernias or defects or masses. Quality Reporting (2019) Adult (CMS 138/2/) Smoking risk assessment performed?: Yes Patient Tobacco Use Status: Former [employer] account manager user Assessment & Plan Assessment & Plan (1) Abdominal wall pain in right flank: Code(s): R10.9 - Unspecified abdominal pain Category: Medical Plan Abdominal symptoms may be related to muscle strain or pull. They are improving. The patient will otherwise follow-up p.r.n.. Should he develop recurrence of progression of symptoms, he has been instructed to contact the office. All questions answered. Coding Level of Care Code Est Pt Level 4 (78582) Diagnoses Abdominal wall pain in right flank R10.9
--- OUTSIDE RECORDS SUMMARY | 2024-09-25 09:30 | XMS_ITS | Clinical Summary ---
Author Organization [facility] ity Address [address] [place] [id number] Care Team Providers Care Microsoft Dynamics Developer Name Role Phone Gina Le MD Primary Care Provider [phone] Social History Tobacco Use Types Packs/Day Years Used Date Smoking Tobacco: Never Alcohol Use Standard Drinks/Week Comments Yes 0 (1 standard drink = 0.6 oz pur e alcohol) Sex and Gender Information Value Date Recorded Sex Assigned at Not on file Legal Sex Male 3:01 AM EST Gender Identity Not on file Sexual Orientation [...] DTaP,Tdap,and Td Vaccines (1 - Tdap) 1977 Pneumococcal Vaccine: 50+ Ye ars (1 of 1 - PCV) 2008 Zoster Vaccines (1 of 2) 2008 Abdominal Aortic Aneurysm (A AA) Screen 07/17/2022 Cholesterol Screening (Lipid Panel) 07/17/2022 Colorectal Cancer Screening: Colonoscopy 07/17/2022 Depression Screening 07/17/2022 Hepatitis C Screening 07/17/2022 Social Influencers of Health Screening 07/17/2022 Falls Risk Assessment 11/10/2023 COVID-19 Vaccine ( - 2023-2 5 [...] patient's age to complete this topic Meningococcal B Vacine Aged Out No lo nger eligible based on patient's age to complete [...] age to complete this topic Care Teams Microsoft Dynamics Developer Relationship Specialty Start Date End Date Gina Le MD [address] [place] [address] , [address] [facility] D/B/A: [facility] CHADD Guadarrama PCP - General 10/04/22
== END 2024-09-25 08:48 | disposition home or self-care (01) ==
PROVIDERS: PCP Internal Medicine; Visit Provider Surgery
DX: R10.9 Unspecified abdominal pain (principal)
CPT/HCPCS: 99214

== ENCOUNTER → 2024-09-25 08:38 | Outpatient (BNVA) | payer OTHER, SELFPAY | PROVIDERS: PCP Internal Medicine; Visit Provider Surgery | DX: R10.9 Unspecified abdominal pain (principal) | CPT/HCPCS: 99212 ==

== ENCOUNTER → 2024-10-31 13:52 | Outpatient (REF) | payer OTHER, SELFPAY ==
--- OUTSIDE RECORDS SUMMARY | 2024-10-31 16:33 | XMS_ITS | Clinical Summary ---
[facility] Organization [facility] Address [id number] [place] [id number] Care Team Providers Care Ditch Inspector Name Role Phone Gina Le MD Primary Care Provider [phone] Social History Tobacco Use Types Packs/Day Years [...] age to complete this topic Care Teams Ditch Inspector Relationship Specialty Start Date End Date Gina Le MD [address] [place] [address] , [address] [facility] D/B/A: [facility] CHADD Guadarrama PCP - General 10/04/22
== END ==
LOC: HO.CARD 13:52
PROVIDERS: PCP Internal Medicine; Visit Provider Internal Medicine Cardiovascular Disease
DX: I50.22 Chronic systolic (congestive) heart failure (principal)
CPT/HCPCS: 93306; Q9957

== ENCOUNTER → 2024-10-31 13:55 | Outpatient (BNV) | payer OTHER, SELFPAY | PROVIDERS: PCP Internal Medicine; Visit Provider Internal Medicine Cardiovascular Disease | DX: I50.22 Chronic systolic (congestive) heart failure (principal); I51.7 Cardiomegaly; I34.0 Nonrheumatic mitral (valve) insufficiency | CPT/HCPCS: 93306 ==

== ENCOUNTER 2024-11-04 16:23 | Emergency (ER) | payer OTHER, SELFPAY ==
--- NOTE | 2024-11-04 | ECG_ITS ---
Test Reason : cp Blood Pressure : */* mmHG Vent. Rate : 85 BPM Atrial Rate : 85 BPM P-R Int : 134 ms QRS Dur : 126 ms QT Int : 406 ms P-R-T Axes : 64 -50 76 degrees QTcB Int : 483 ms Atrial-sensed ventricular-paced rhythm Abnormal ECG When compared with ECG of 08-Jul-2024 01:37, Electronic ventricular pacemaker has replaced Wide QRS rhythm Referred By: Generic ED Physician Electronically Signed By: SETH GAGE MD
--- NOTE | ~2024-11-04 | XR_ITS ---
CLINICAL HISTORY: chest pain 2 view chest x-ray Comparison: CR/SR - XR CHEST 2V - 07/08/24 02:11 EST Findings: Bibasilar atelectasis. No significant pleural effusion or pneumothorax. Similar prominent/enlarged cardiac silhouette. Left pectoral biventricular AICD/pacemaker, lead tips project over the RA RV and coronary sinus. No acute fracture. IMPRESSION: Bibasilar atelectasis. This document has been electronically signed by: Anthony Davila MD on 11/04/2024 21:52:49
[2024-11-04 17:10] VITALS: BP 134/79; PULSE 66; RESP 18; TEMP 36.9; O2SAT 95; BMI 34.1
--- NOTE | 2024-11-04 17:13 | ED_ITS ---
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 He has no drainage from the face. He also then c/o walking to our cafeteria eating a very salthy sandwhich then walking back felt chest discomfort but no dyspnea, n/v. This happened at 9pm. He states he feels fine now. He has never had a skin infection on the face before. MD complaint: facial swelling Onset (ago): day(s) (1) Location: face Radiation: non-radiation Severity: mild Quality: burning and other (pruritic ) Pain Consistency: constant Relieving factors: none Exacerbating factors: other (palpation) Associated symptoms: chest pain Treatments prior to arrival: none Related Data Home Medications ?Medication ?Instructions ?Recorded ?Confirmed trazodone 100 mg tablet 200 mg PO BEDTIME 03/19/24 09/25/24 metoprolol succinate 50 mg 25 mg PO DAILY 04/17/24 09/25/24 tablet,extended release 24 hr sertraline 50 mg tablet 50 mg PO DAILY 06/17/24 09/25/24 olanzapine 10 mg tablet 10 mg PO BEDTIME 07/04/24 09/25/24 spironolactone 25 mg tablet 25 mg PO DAILY 07/04/24 09/25/24 sacubitril 24 mg-valsartan 26 mg 1 tab PO BID 07/29/24 09/25/24 tablet Previous Rx's ?Medication ?Instructions ?Recorded lancets 28 gauge (FreeStyle #100 ea 01/17/23 Lancets) blood sugar diagnostic (OneTouch #100 ea 05/09/23 Ultra Test strips) blood-glucose meter (OneTouch #1 ea 05/09/23 Ultra2 Meter) lancets 30 gauge (OneTouch #100 ea 05/09/23 UltraSoft 2 Lancet) furosemide 40 mg tablet 40 mg PO BID #90 tabs 04/17/24 apixaban 5 mg tablet (Eliquis) 5 mg PO BID #180 tabs 05/01/24 tamsulosin 0.4 mg capsule (Flomax) 0.4 mg PO BEDTIME #30 caps 05/06/24 empagliflozin 10 mg tablet 10 mg PO DAILY #30 tabs 05/28/24 (Jardiance) atorvastatin 80 mg tablet 80 mg PO DAILY #90 tabs 07/29/24 hydrocodone 5 mg-acetaminophen 325 1 tab PO Q4-6H PRN pain #20 tabs 08/27/24 mg tablet cephalexin 500 mg capsule 500 mg PO QID 7 days #28 caps 11/04/24 prednisone 20 mg tablet 40 mg (2 x 20 mg) PO DAILY 4 days 11/04/24 #8 tabs Allergies Allergy/AdvReac Type Severity Reaction Status Date / Time No Known Allergies Allergy Verified 11/04/24 17:15 [No Known Allergies*] Review of Systems 2 Review of Systems: Constitutional : No Fever, No Chills ENT/Mouth : No sore throat, No Rhinorrhea Eyes: No Eye Pain, No Swelling, No Redness Cardiovascular : pos Chest Pain, No SOB Respiratory : No Cough, No Sputum Gastrointestinal : No Nausea, No Vomiting, No Diarrhea, No abdominal Pain Genitourinary : No Dysuria, No Hematuria Musculoskeletal : No joint pain, No Myalgias, No Joint Swelling Skin : No Skin Lesions, positive skin rash Neuro : No Weakness, No Numbness, No Headache Psych : No Anxiety, No Depression Heme/Lymph: No Bruising, No Bleeding,No Lymphadenopathy Endocrine : No Polyuria, No Polydipsia All other systems reviewed and are negative [facility] Past Medical History Attestation statement: The following information was validated with the patient. 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 pylori) GERD (gastroesophageal reflux disease) Breast pain Dyslipidemia Essential hypertension Obese Abdominal mass Insomnia Surgical History H/O abdominal surgery History of colonoscopy Family History Family History Father No problems noted. Mother Kidney failure Social History Social History Household Members: None Housing: Apartment Do you presently have visiting nurse or other home services: No Alcohol intake: former Patient Tobacco Use Status: Former Tobacco user Tobacco use type: Cigarette Smoked in Last 30 Days: No e-Cigarette/Vaping Use: Never Used Second Hand Smoke Exposure: No Use of substances other than those prescribed or required for medical reasons: No Advance Directives: No Advance Directives Information Provided: Yes service: No Current occupational status: retired Cognitive needs: No Hearing needs: No Vision needs: No Physical Exam ED Vital Signs: Vital Signs - 24 hr 11/04/24 17:10 11/04/24 21:12 11/04/24 21:33 Temperature 98.5 F 98.3 F 97.4 F Pulse Rate 66 81 78 Respiratory Rate 18 23 H 16 Blood Pressure 134/79 170/99 H 139/85 Pulse Oximetry 95 95 96 Oxygen Delivery Method Room Air Room Air Room Air 11/04/24 23:13 11/04/24 23:30 Temperature 98.2 F Pulse Rate 67 68 Respiratory Rate 20 16 Blood Pressure 136/85 141/78 H Pulse Oximetry 96 97 Oxygen Delivery Method Room Air Room Air BMI result Body Mass Index 34.1 Appearance: Alert. Oriented X3. No acute distress. Eyes: Pupils equal, round and reactive to light. both eyes red boggy and under the eye but EOM intact no pain and no discharge upper cheeks are also red this is symmtric and bridge of nose is red as well ENT: Pharynx normal. Neck: Normal inspection. Neck supple. CVS: Normal heart rate and rhythm. Pulses normal. Respiratory: No respiratory distress. Breath sounds normal. Abdomen: Soft and nontender. Skin: Skin warm and dry. Normal skin color. Normal skin turgor. Extremities: No lower extremity edema. No calf ttp Neuro: Oriented X 3. No motor deficit. No sensory deficit. CN2-12 intact Course Course Course Narrative: This is a rapid medical exam performed by Ema Segura PA-C. The patient is a 63-year-old male with a history of hypertension, hyperlipidemia, diabetes who presents with likely facial sunburn. Patient was outside of the. Yesterday, today he woke with significant swelling and redness surrounding his eyes and cheeks. Extraocular eye movements intact. Concern for potential preseptal cellulitis, although it is likely a sunburn. We will screen basic labs and inflammatory markers. The patient is stable and can return to the waiting room pending his full medical assessment. Medications Administered Discontinued Medications Generic Name Dose Route Start Last Admin Trade Name Freq PRN Reason Stop Dose Admin Cephalexin HCl 500 mg 11/04/24 22:09 11/04/24 23:15 Cephalexin 500 Mg Capsule PO 11/04/24 22:10 500 mg ONCE ONE Administration Prednisone 40 mg 11/04/24 22:09 11/04/24 23:15 Prednisone 20 Mg Tablet PO 11/04/24 22:10 40 mg ONCE ONE Administration Medical Decision Making Medical Decision Making [facility] Narrative: 63 yo male with PMH Of afib on eliquis, CHF, anxiety, GERD, HLD, HTN here with c/o red itchy swollen face no resp issues and no pain with EOM at this time suspect either local allergy/preseptal cellulitis I am leaning more towards allergy - will start on steroids and abx. He also c/o atypical chest pain after eating a salty sandwhich given his hx will obtain CXR, EKG and trop x 2. He has no signs of DVT and is already on eliquis. Differential Diagnosis Differential Diagnoses: The differential diagnosis associated with the presentation includes allergy, preseptal cellulitis, atyipcal chest pain Admission/Observation Consideration of admission/observation: Escalation of care including admission/observation considered work up reassuring stable for DC repeat trop x 2 negative no airway involvement BNP lower than his baseline Lab Data [facility] Lab Attestation statement: I reviewed the patient's lab results. 11/04/24 19:21 11/04/24 19:21 Labs: Lab Results 11/04/24 11/04/24 11/04/24 Range/Units 19:21 21:12 23:13 WBC 6.3 (4.8-10.8) X10*3/uL RBC 5.54 (4.60-5.80) X10*6/uL Hgb 16.4 (14.0-18.0) g/dl Hct 46.7 (42.0-52.0) % MCV 84.3 (80.0-98.0) fL MCH 29.6 (27.0-33.0) pg MCHC 35.1 (31.0-36.0) g/dl RDW 14.5 (11.0-16.0) % Plt Count 223 (160-400) X10*3/uL MPV 10.9 (9.4-12.4) fL Immature Gran % (Auto) 0.3 (0.0-0.4) % Neut % (Auto) 62.9 (45-73) % Lymph % (Auto) 26.7 (20-40) % [place] % (Auto) 6.8 (2-11) % Eos % (Auto) 2.2 (0-4) % Baso % (Auto) 1.1 (0-2) % Lymph # (Auto) 1.7 (1.2-4.9) X10*3/uL [place] # (Auto) 0.4 (0.1-1.2) X10*3/uL Eos # (Auto) 0.1 (0.0-0.4) X10*3/uL Baso # (Auto) 0.1 (0.0-0.2) X10*3/uL Abs Immat Gran (auto) 0.02 (0.00-0.03) X10*3/uL Absolute Neuts (auto) 4.0 (2.0-8.3) x10*3/uL Absolute Nucleated RBC 0.000 (0.0-0.012) X10*3/uL Nucleated RBC % (auto) 0.0 (0.0-0.2) /100WBC ESR 30 H (0-15) MM/HR Sodium 143 (135-145) mmol/L Potassium 3.6 (3.3-5.1) mmol/L Chloride 109 H (96-108) mmol/L Carbon Dioxide 24 (22-29) mmol/L Anion Gap 14 (12-20) BUN 14 (9-16) mg/dL Creatinine 1.14 (0.5-1.4) mg/dL Estim Creat Clear Calc 60.8 Estimated GFR > 60 Random Glucose 133 H (60-115) mg/dL Calcium 9.6 D (8.4-10.2) mg/dL Magnesium 2.2 (1.6-2.6) mg/dL Total Bilirubin 0.4 (0.0-1.0) mg/dL AST 26 (5-37) U/L ALT 26 (0-40) U/L Alkaline Phosphatase 52 (39-117) U/L Troponin I High Sens 25.6 26.3 (<3.5-35.0) ng/L C-Reactive Protein 6.97 H (< or = 0.50) mg/dL B-Natriuretic Peptide 367 H (<100) pg/mL Total Protein 7.8 (6.5-8.0) g/dL Albumin 4.2 (3.5-5.0) g/dL Independent Interpretation I performed an independent interpretation of an: EKG and Plain X-Ray (normal ) Interpretation: Rate: 85 Rhythm: paced [place]: left Normal P waves. Normal TELMA. wide QRS complex. ST T wave : no ST, normal for paced qTC: 483 prior studies: no acute findings. The study has been interpreted contemporaneously by me. . Radiology Impression Discussion of test interpretation with radiology: I have reviewed the radiologist's reading. Independent Historian Clinical information obtained from an independent historian. History obtained from or confirmed by: Spouse External Record Review External record reviewed: Outpatient record Prescription Management I considered prescription management with: Antibiotic and Other Discharge Plan Discharge Clinical Impression: Preseptal cellulitis Allergic reaction Qualifiers: Encounter type: initial encounter Qualified Code(s): T78.40XA - Allergy, unspecified, initial encounter Patient Disposition: Home, Self-Care Instructions: Allergies (ED), Periorbital Cellulitis in Adults (ED) Additional Instructions: return for any worsening symptoms or concerns such as increased redness, return of chest pain, fevers, unable to eat or drink or any other concerns such as vision loss On a cephalosporin?antibiotic, softer bowel movements are to be expected. Call your provider if you move your bowels more than 4 times a day, your bowel movements are almost all liquid, or you get a rash.?? Prescriptions: New prednisone 20 mg tablet 40 mg PO DAILY 4 Days Qty: 8 0RF cephalexin 500 mg capsule 500 mg PO QID 7 Days Qty: 28 0RF No Action Eliquis 5 mg tablet 5 mg PO BID Qty: 180 0RF trazodone 100 mg tablet 200 mg PO BEDTIME metoprolol succinate 50 mg tablet extended release 24 hr 25 mg PO DAILY Jardiance 10 mg Tablet 10 mg PO DAILY Qty: 30 0RF olanzapine 10 mg tablet 10 mg PO BEDTIME spironolactone 25 mg tablet 25 mg PO DAILY (DME) blood-glucose meter [OneTouch Ultra2 Meter] Mis See Rx Instructions .Route Qty: 1 0RF Rx Instructions: As directed ([facility] OneTouch Ultra Test Strip See Rx Instructions .Route Qty: 100 2RF Rx Instructions: Use 1 test strip once a day ([facility] lancets [OneTouch UltraSoft 2 Lancet] 30 gauge misc See Rx Instructions .Route Qty: 100 2RF Rx Instructions: Use 1 lancet once a day ([facility] lancets [FreeStyle Lancets] 28 gauge misc See Rx Instructions .Route Qty: 100 3RF Rx Instructions: Use 1 lancet once a day tamsulosin [Flomax] 0.4 mg capsule 0.4 mg PO BEDTIME Qty: 30 2RF sacubitril-valsartan 24-26 mg tablet 1 tab PO BID atorvastatin 80 mg tablet 80 mg PO DAILY Qty: 90 0RF furosemide 40 mg tablet 40 mg PO BID Qty: 90 3RF sertraline 50 mg tablet 50 mg PO DAILY hydrocodone-acetaminophen 5-325 mg tablet 1 tab PO Q4-6H PRN (Reason: pain) Qty: 20 0RF Rx Instructions: Partial Fill upon patient request. Print Language: Greenlandic
[2024-11-04 19:26] LABS: MANUAL DIFF FLAG NO
[2024-11-04 19:27] LABS: Basophils Absolute Auto 0.1 X10*3/uL (0.0-0.2); Basophils Percent Auto 1.1 % (0-2); Eosinophils Absolute Auto 0.1 X10*3/uL (0.0-0.4); Eosinophils Percent Auto 2.2 % (0-4); Hematocrit 46.7 % (42.0-52.0); Hemoglobin 16.4 g/dl (14.0-18.0); Imm Gran Abs Auto 0.02 X10*3/uL (0.00-0.03); Imm Gran Pct Auto 0.3 % (0.0-0.4); Lymphocytes Absolute Auto 1.7 X10*3/uL (1.2-4.9); Lymphocytes Percent Auto 26.7 % (20-40); Mean Corpuscular HGB Conc 35.1 g/dl (31.0-36.0); Mean Corpuscular Hemoglobin 29.6 pg (27.0-33.0); Mean Corpuscular Volume 84.3 fL (80.0-98.0); Mean Platelet Volume 10.9 fL (9.4-12.4); Monocytes Absolute Auto 0.4 X10*3/uL (0.1-1.2); Monocytes Percent Auto 6.8 % (2-11); Neutrophils Percent Auto 62.9 % (45-73); Platelet Count 223 X10*3/uL (160-400); Red Blood Count 5.54 X10*6/uL (4.60-5.80); Red Cell Distribution Width 14.5 % (11.0-16.0); White Blood Count 6.3 X10*3/uL (4.8-10.8)
[2024-11-04 19:55] LABS: Alanine Aminotransferase 26 U/L (0-40); Albumin Level 4.2 g/dL (3.5-5.0); Alkaline Phosphatase 52 U/L (39-117); Anion Gap 14 (12-20); Aspartate Amino Transferase 26 U/L (5-37); Bilirubin Total 0.4 mg/dL (0.0-1.0); Blood Urea Nitrogen 14 mg/dL (9-16); C Reactive Protein 6.97 mg/dL (< or = 0.50); Calcium 9.6 mg/dL (8.4-10.2); Carbon Dioxide 24 mmol/L (22-29); Chloride 109 mmol/L (96-108); Creatinine Clr Calc Pharmacy 60.8; Estimated Glomerular Filt Rate > 60; Glucose Random 133 mg/dL (60-115); Magnesium 2.2 mg/dL (1.6-2.6); Potassium 3.6 mmol/L (3.3-5.1); Sodium 143 mmol/L (135-145); Total Protein 7.8 g/dL (6.5-8.0)
[2024-11-04 21:12] VITALS: BP 170/99; PULSE 81; RESP 23; TEMP 36.8; O2SAT 95
[2024-11-04 21:29] LABS: Erythrocyte Sedimentation Rate 30 MM/HR (0-15)
[2024-11-04 21:33] VITALS: BP 139/85; PULSE 78; RESP 16; TEMP 36.3; O2SAT 96
--- NOTE | 2024-11-04 21:34 | MHC.EDTECH ---
This pct just assumed care of Patient ,vitals taken ,Patient was change into hospital attire ,and hooked up to retail warehouse associate .
[2024-11-04 21:44] LABS: B Type Natriuretic Peptide 367 pg/mL (<100)
[2024-11-04 21:46] LABS: Troponin-I High Sensitivity 25.6 ng/L (<3.5-35.0)
[2024-11-04 23:13] VITALS: BP 136/85; PULSE 67; RESP 20; O2SAT 96
[2024-11-04] MEDS: cephALEXin 500 MG CAPSULE PO (23:15)
[2024-11-04] MEDS: predniSONE 20 MG TABLET 40 MG PO (23:15)
[2024-11-04 23:30] VITALS: BP 141/78; PULSE 68; RESP 16; TEMP 36.8; O2SAT 97
[2024-11-04 23:43] LABS: Troponin-I High Sensitivity 26.3 ng/L (<3.5-35.0)
[2024-11-05 00:19] VITALS: BP 141/78; PULSE 68; RESP 16; TEMP 36.8; O2SAT 97
== END 2024-11-05 00:19 | disposition home or self-care (01) ==
PROVIDERS: Physician Assistant Medical; Emergency Provider Emergency Medicine; PCP Internal Medicine
DX: L03.213 Periorbital cellulitis (principal); I48.91 Unspecified atrial fibrillation; R06.02 Shortness of breath; R07.89 Other chest pain; Z79.01 Long term (current) use of anticoagulants; Z79.899 Other long term (current) drug therapy; Z87.891 Personal history of nicotine dependence
CPT/HCPCS: 36415; 71046; 80053; 83735; 83880; 84484; 85025; 85652; 86140; 93005; 99283; 99284

== ENCOUNTER → 2024-11-04 21:00 | Outpatient (BNV) | payer OTHER, SELFPAY | PROVIDERS: Emergency Provider Emergency Medicine; PCP Internal Medicine; Visit Provider Internal Medicine Cardiovascular Disease | DX: I49.8 Other specified cardiac arrhythmias (principal) | CPT/HCPCS: 93010 ==

== ENCOUNTER → 2024-11-04 21:15 | Outpatient (BNV) | payer OTHER, SELFPAY | PROVIDERS: Emergency Provider Emergency Medicine; PCP Internal Medicine; Visit Provider Radiology Diagnostic Radiology | DX: R07.9 Chest pain, unspecified (principal) | CPT/HCPCS: 71046 ==

== ENCOUNTER 2024-11-26 07:34 | Inpatient (IN) | payer OTHER, SELFPAY ==
[2024-11-26] VITALS (9 sets, daily range): BP systolic 105–138; BP diastolic 68–87; PULSE 64–142; RESP 18–34; TEMP 36.9–37.3; O2SAT 93–95; BMI 34.5
--- NOTE | ~2024-11-26 | CT_ITS ---
CT-guided pericardial drainage PROCEDURES: 1. Limited preprocedure CT of the chest. Permanent images saved in PACS. 2. CT-guided drainage of pericardial fluid 3. Limited postprocedure CT of the chest. Permanent images saved in PACS. MEDICATIONS: -Fentanyl and lidocaine 1% 10 mL SQ -Antibiotics: None COMPLICATIONS: None ESTIMATED BLOOD LOSS: < 5 ml CONTRAST: None SPECIMENS: Pericardial fluid PROCEDURE NOTE: The procedure, risks, benefits, and alternatives were carefully explained to the patient and written informed consent was obtained using a body design checker. The patient was placed supine on the CT table. A timeout was performed. A limited CT of the chest was performed to localize the moderate pericardial effusion and choose appropriate needle entry and trajectory. The patient was prepped and draped in usual sterile fashion. The skin and deeper soft tissues were anesthetized with lidocaine. Under CT guidance, a 4 [place] PacerPro centesis catheter was used to access the pericardial space. Approximately 250 mL of serosanguineous fluid was manually aspirated. The catheter was removed.. A limited postprocedure CT of the chest was performed, which demonstrated only trace residual fluid. There were no immediate complications. The patient was stable after the procedure and was transferred to monitored unit CT/CT Drain Pericardial placement Impression: CT-guided drainage of pericardial effusion Electronically signed by: Jose Jean MD 11/28/2024 03:08 PM EDT
--- NOTE | ~2024-11-26 | XR_ITS ---
EXAMINATION: XR CHEST CLINICAL INFORMATION: cough x 4 weeks COMPARISON: November 04, 2024. TECHNIQUE: 2 views of the chest were obtained. FINDINGS: Cardiomediastinal silhouette is enlarged. Kidneys and within the left lower hemithorax. Pulmonary reticular pattern. No pneumothorax. 3. Intact electrode leads in the right heart chambers and coronary sinus. Left-sided pacemaker reservoir overlapping the left upper hemithorax. Multilevel thoracic spondylosis. XR/XR chest 2V IMPRESSION: Cardiomegaly versus pericardial effusion. Left-sided pleural effusion, small to moderate volume. Electronically signed by: Lucius Carpio MD 11/26/2024 08:49 AM EDT
--- NOTE | ~2024-11-26 | CT_ITS ---
EXAMINATION: CT CHEST WITHOUT IV CONTRAST INDICATION: ? occult pneumonia COMPARISON: Comparison is made with the prior examination dated 07/04/2024. TECHNIQUE: Helical CT scan of the chest was performed without intravenous contrast. Coronal and sagittal reformatted images were generated and reviewed. This CT exam was performed with one or more of the following dose reduction techniques: automated exposure control, adjustment of the mA and/or kV according to patient size, use of iterative reconstruction technique. DLP: 328 mGy-cm CHEST: THYROID: The thyroid is unremarkable. LUNGS: There is mild respiratory artifact. There is airspace opacity in the left lower lobe consistent with atelectasis or pneumonia. There is subsegmental atelectasis at the right lung base. MEDIASTINUM: There is no mediastinal lymphadenopathy. SUKHI: Evaluation of the hilar regions is limited by lack of intravenous contrast material. CARDIOVASCULATURE: The heart is enlarged. There is a moderate pericardial effusion measuring up to 1.6 cm in thickness. A pacemaker is seen in place. The thoracic aorta is normal in caliber. DEGREE OF CORONARY CALCIFICATION: none PLEURA: There is a small left pleural effusion. There is no right pleural effusion. No pneumothorax. MAIN AIRWAYS: The mainstem bronchi and proximal branches are patent. AXILLA: There is no axillary lymphadenopathy. BONES AND SOFT TISSUES: There is degenerative disc disease of the spine. UPPER ABDOMEN: The visualized portion of the liver appears enlarged and decreased in attenuation, consistent with steatosis. The visualized portions of the spleen and adrenals have an unremarkable unenhanced appearance. CT/CT chest wo IV con IMPRESSION: 1. Left lower lobe atelectasis versus pneumonia. 2. Cardiomegaly. Moderate pericardial effusion as described. 3. Small left pleural effusion. 4. Hepatomegaly and hepatic steatosis. Electronically signed by: Elias Wiley MD 11/26/2024 10:25 AM EDT
[2024-11-26 08:34] LABS: MANUAL DIFF FLAG NO
[2024-11-26 08:37] LABS: Basophils Absolute Auto 0.1 X10*3/uL (0.0-0.2); Basophils Percent Auto 0.9 % (0-2); Eosinophils Absolute Auto 0.1 X10*3/uL (0.0-0.4); Eosinophils Percent Auto 1.3 % (0-4); Hematocrit 39.7 % (42.0-52.0); Hemoglobin 13.5 g/dl (14.0-18.0); Imm Gran Abs Auto 0.02 X10*3/uL (0.00-0.03); Imm Gran Pct Auto 0.3 % (0.0-0.4); Mean Corpuscular Hemoglobin 29.5 pg (27.0-33.0); Mean Corpuscular Volume 86.9 fL (80.0-98.0); Mean Platelet Volume 10.1 fL (9.4-12.4); Monocytes Percent Auto 12.4 % (2-11); Neutrophils Absolute Auto 5.7 x10*3/uL (2.0-8.3); Neutrophils Percent Auto 72.1 % (45-73); Platelet Count 363 X10*3/uL (160-400); Red Blood Count 4.57 X10*6/uL (4.60-5.80); Red Cell Distribution Width 13.5 % (11.0-16.0); White Blood Count 7.9 X10*3/uL (4.8-10.8)
[2024-11-26 08:54] LABS: Alanine Aminotransferase 15 U/L (0-40); Albumin Level 3.7 g/dL (3.5-5.0); Anion Gap 10 (12-20); Aspartate Amino Transferase 25 U/L (5-37); Bilirubin Direct 0.3 mg/dL (0.0-0.5); Bilirubin Total 0.7 mg/dL (0.0-1.0); Blood Urea Nitrogen 10 mg/dL (9-16); Calcium 9.7 mg/dL (8.4-10.2); Carbon Dioxide 24 mmol/L (22-29); Chloride 109 mmol/L (96-108); Creatinine Clr Calc Pharmacy 101.5; Estimated Glomerular Filt Rate > 60; Glucose Random 129 mg/dL (60-115); Lipase 7 U/L (8-78); Magnesium 2.1 mg/dL (1.6-2.6); Potassium 4.2 mmol/L (3.3-5.1); Sodium 139 mmol/L (135-145); Total Protein 7.2 g/dL (6.5-8.0)
--- NOTE | 2024-11-26 08:56 | ED_ITS ---
HPI - General Adult General Chief complaint: General Medical Stated complaint: Fever, cough, abd pain Time Seen by Provider: 11/26/24 08:50 Source: patient Mode of arrival: ambulatory Limitations: no limitations History of Present Illness HPI narrative: This is a 64 years old male presented to the emergency department complaining of cough for about 4 weeks cough is productive. Denies any fever chills vomiting Onset (ago): week(s) (4) Radiation: non-radiation Severity: moderate Pain Consistency: constant Relieving factors: none Exacerbating factors: none Associated symptoms: denies other symptoms Related Data Home Medications ?Medication ?Instructions ?Recorded ?Confirmed trazodone 100 mg tablet 200 mg PO BEDTIME 03/19/24 11/26/24 sertraline 50 mg tablet 50 mg PO DAILY 06/17/24 11/26/24 olanzapine 10 mg tablet 10 mg PO BEDTIME 07/04/24 11/26/24 amiodarone 200 mg tablet 200 mg PO BID 11/26/24 11/26/24 aspirin 81 mg tablet,delayed 81 mg PO DAILY 11/26/24 11/26/24 release melatonin 5 mg tablet 5 mg PO BEDTIME 11/26/24 11/26/24 metoprolol succinate 25 mg 25 mg PO DAILY 11/26/24 11/26/24 tablet,extended release 24 hr Previous Rx's ?Medication ?Instructions ?Recorded lancets 28 gauge (FreeStyle #100 ea 01/17/23 Lancets) blood sugar diagnostic (OneTouch #100 ea 05/09/23 Ultra Test strips) blood-glucose meter (OneTouch #1 ea 05/09/23 Ultra2 Meter) lancets 30 gauge (OneTouch #100 ea 05/09/23 UltraSoft 2 Lancet) apixaban 5 mg tablet (Eliquis) 5 mg PO BID #180 tabs 05/01/24 empagliflozin 10 mg tablet 10 mg PO DAILY #30 tabs 05/28/24 (Jardiance) atorvastatin 80 mg tablet 80 mg PO DAILY #90 tabs 11/25/24 Allergies Allergy/AdvReac Type Severity Reaction Status Date / Time No Known Allergies Allergy Verified 11/26/24 07:47 [No Known Allergies*] Review of Systems 2 ENT: Reports system reviewed and no additional complaints, except as documented Respiratory: Respiratory: Reports no additional respiratory complaints PMFSH Past Medical History Attestation statement: The following information was validated with the patient. Medical History CHF exacerbation Acute on chronic systolic and diastolic heart failure, NYHA class 3 Persistent atrial fibrillation Congestive heart failure Atrial flutter Atrial fibrillation with rapid ventricular response Atrial fibrillation Alcohol use Hyperlipidemia LDL goal <70 Chronic sore throat Colon perforation Foreign body in sigmoid colon Onychomycosis 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 pylori) GERD (gastroesophageal reflux disease) Breast pain Dyslipidemia Essential hypertension Obese Abdominal mass Insomnia Surgical History H/O abdominal surgery History of colonoscopy Family History Family History Father No problems noted. Mother Kidney failure Social History Social History Household Members: None Housing: Apartment Do you presently have visiting nurse or other home services: No Alcohol intake: former Patient Tobacco Use Status: Former Tobacco user Tobacco use type: Cigarette Smoked in Last 30 Days: No e-Cigarette/Vaping Use: Never Used Second Hand Smoke Exposure: No Use of substances other than those prescribed or required for medical reasons: No Advance Directives: No Advance Directives Information Provided: Yes Do you have a plan to hurt others: No Plan service: No Current occupational status: retired Cognitive needs: No Hearing needs: No Vision needs: No Physical Exam ED Vital Signs: Vital Signs - 24 hr 11/26/24 07:39 11/26/24 09:03 11/26/24 09:05 Temperature 99.1 F 98.5 F Pulse Rate 76 78 76 Respiratory Rate 20 20 Blood Pressure 138/68 132/84 129/81 Pulse Oximetry 95 94 Oxygen Delivery Method Room Air Room Air Room Air 11/26/24 12:05 Temperature 98.4 F Pulse Rate 77 Respiratory Rate 20 Blood Pressure 137/87 Pulse Oximetry 93 Oxygen Delivery Method Room Air BMI result Body Mass Index 34.5 No acute distress Const General: cooperative and comfortable Nutritional Appearance: obese Orientation/consciousness: patient oriented x3 HENMT Head: Yes normal to inspection Ears: hearing grossly normal bilaterally General nose exam: Normal external nose present Mouth: Normal oral and palatal mucosa present Throat: Yes posterior oropharynx normal Neck Neck: Yes normal visual inspection Chest Chest palpation & inspection: normal inspection of the chest Resp Effort & Inspection: normal respiratory effort Auscultation: rhonchi Cardio Jugular venous distension: no JVD Rate: regular rate Rhythm: regular rhythm GI Inspection: Yes normal to inspection Palpation (GI): Soft to palpation Auscultation: normal bowel sounds Skin General skin exam: elasticity normal Neuro General: patient oriented x3 Course Reevaluation(s) Reevaluation #1: Bedside ultrasound was performed by mt point of care ultrasound pericardial effusion detected no evidence of tamponade Time: 16:20 Medications Administered Generic Name Dose Route Start Last Admin Trade Name Freq PRN Reason Stop Dose Admin Acetaminophen 650 mg 11/26/24 12:02 11/26/24 15:06 Acetaminophen 325 Mg Tablet PO 650 mg Q6H PRN Administration Pain, Mild 1-3,fever,headache Ceftriaxone Sodium 1 gm 11/26/24 14:00 11/26/24 14:44 Ceftriaxone Sodium 1 Gm Vial IVPUSH 1 gm Q24H ARYMOND Administration Metoprolol Tartrate 25 mg 11/26/24 15:15 11/26/24 15:34 Metoprolol Tartrate 25 Mg Tablet PO 25 mg TID RAYMOND Administration Protocol Sodium Chloride 3 ml 11/26/24 16:00 11/26/24 15:07 0.9 % Sodium Chloride Flush 3 Ml Syringe IVFLUSH 3 ml QSHIFT RAYMOND Administration Discontinued Medications Generic Name Dose Route Start Last Admin Trade Name Freq PRN Reason Stop Dose Admin Furosemide 40 mg 11/26/24 11:29 11/26/24 12:08 Furosemide 40 Mg/4 Ml Vial IVPUSH 11/26/24 11:30 40 mg ONCE ONE Administration Protocol Doxycycline Hyclate 100 mg/ 250 mls @ 166.67 mls/hr 11/26/24 11:28 11/26/24 13:45 Sodium Chloride IV 11/26/24 12:57 Infused ONCE ONE Infusion Metoprolol Tartrate 5 mg 11/26/24 14:49 11/26/24 14:57 Metoprolol Tartrate 5 Mg/5 Ml Vial IVPUSH 11/26/24 14:50 5 mg ONCE ONE Administration Protocol Medical Decision Making Medical Decision Making [facility] Narrative: Patient is here complaining of cough congestion for weeks we will obtain chest x-ray Differential Diagnosis Differential Diagnoses: The differential diagnosis associated with the presentation includes Pneumonia/bronchitis Admission/Observation Consideration of admission/observation: Escalation of care including admission/observation considered Consult Healthcare Provider Management of the patient was discussed with: Maple Sugar Maker Staff Training And Development Manager (spoke with Dr Osuna) Lab Data MDM Lab Attestation statement: I reviewed the patient's lab results. 11/26/24 08:31 11/26/24 08:31 Labs: Lab Results 11/26/24 11/26/24 11/26/24 Range/Units 08:31 09:02 12:00 WBC 7.9 (4.8-10.8) X10*3/uL RBC 4.57 L (4.60-5.80) X10*6/uL Hgb 13.5 L (14.0-18.0) g/dl Hct 39.7 L (42.0-52.0) % MCV 86.9 (80.0-98.0) fL MCH 29.5 (27.0-33.0) pg MCHC 34.0 (31.0-36.0) g/dl RDW 13.5 (11.0-16.0) % Plt Count 363 D (160-400) X10*3/uL MPV 10.1 (9.4-12.4) fL Immature Gran % (Auto) 0.3 (0.0-0.4) % Neut % (Auto) 72.1 (45-73) % Lymph % (Auto) 13.0 L (20-40) % [place] % (Auto) 12.4 H (2-11) % Eos % (Auto) 1.3 (0-4) % Baso % (Auto) 0.9 (0-2) % Lymph # (Auto) 1.0 L (1.2-4.9) X10*3/uL [place] # (Auto) 1.0 (0.1-1.2) X10*3/uL Eos # (Auto) 0.1 (0.0-0.4) X10*3/uL Baso # (Auto) 0.1 (0.0-0.2) X10*3/uL Abs Immat Gran (auto) 0.02 (0.00-0.03) X10*3/uL Absolute Neuts (auto) 5.7 (2.0-8.3) x10*3/uL Absolute Nucleated RBC 0.000 (0.0-0.012) X10*3/uL Nucleated RBC % (auto) 0.0 (0.0-0.2) /100WBC Sodium 139 (135-145) mmol/L Potassium 4.2 (3.3-5.1) mmol/L Chloride 109 H (96-108) mmol/L Carbon Dioxide 24 (22-29) mmol/L Anion Gap 10 L (12-20) BUN 10 (9-16) mg/dL Creatinine 0.78 (0.5-1.4) mg/dL Estim Creat Clear Calc 101.5 Estimated GFR > 60 Random Glucose 129 H (60-115) mg/dL Calcium 9.7 (8.4-10.2) mg/dL Magnesium 2.1 (1.6-2.6) mg/dL Total Bilirubin 0.7 (0.0-1.0) mg/dL Direct Bilirubin 0.3 (0.0-0.5) mg/dL AST 25 (5-37) U/L ALT 15 (0-40) U/L Alkaline Phosphatase 58 (39-117) U/L Troponin I High Sens 27.4 (<3.5-35.0) ng/L B-Natriuretic Peptide 246 H (<100) pg/mL Total Protein 7.2 (6.5-8.0) g/dL Albumin 3.7 (3.5-5.0) g/dL Lipase 7 L (8-78) U/L Urine Color Dark Yellow Urine Appearance Clear Urine pH 6.0 (5.0-9.0) Ur Specific [place] >= 1.030 H (1.005-1.025) Urine Protein 30 (1+) H (Neg-Trace) mg/dL Urine Glucose (UA) Negative (Negative) mg/dL Urine Ketones Trace (Negative) mg/dL Urine Blood Negative (Negative) Urine Nitrite Negative (Negative) Ur Leukocyte Esterase Trace H (Negative) Urine RBC 0-2 (0-2) /HPF Urine WBC 0-5 (0-5) /HPF Ur Squamous Epith Cells 0-2 (0-2) /HPF Urine Bacteria None Seen (None Seen) Hyaline Casts 0-2 (0-2) /LPF Influenza Type A (PCR) NEGATIVE (Negative) Influenza Type B (PCR) NEGATIVE (Negative) RSV RNA Qual (PCR) NEGATIVE (Negative) SARS-CoV-2 RNA (RT-PCR) NEGATIVE (Negative) Independent Interpretation I performed an independent interpretation of an: EKG Interpretation: Paced rhythm rate 73 Radiology Impression Discussion of test interpretation with radiology: I have reviewed the radiologist's reading. Radiologist Impression: t with steatosis. The visualized portions of the spleen and adrenals have an unremarkable unenhanced appearance. CT/CT chest wo IV con IMPRESSION: 1. Left lower lobe atelectasis versus pneumonia. 2. Cardiomegaly. Moderate pericardial effusion as described. 3. Small left pleural effusion. 4. Hepatomegaly and hepatic steatosis. Electronically signed by: Elias Wiley MD 11/26/2024 10:25 AM EDT Independent Historian Clinical information obtained from an independent historian. History obtained from or confirmed by: Spouse External Record Review External record reviewed: Inpatient record Discharge Plan Discharge Clinical Impression: Acute dyspnea, Acute pericardial effusion Patient Disposition: Admitted As Inpatient
[2024-11-26 09:06] LABS: Alkaline Phosphatase 58 U/L (39-117)
--- OUTSIDE RECORDS SUMMARY | 2024-11-26 09:10 | XMS_ITS | Clinical Summary ---
Author Organization [facility] ity Address [id number] [place] [id number] Care Team Providers Care Motocross Racer Name Role Phone Gina Le MD Primary Care Provider [phone] Social History Tobacco Use Types Packs/Day Years [...] - 2023-2 5 season) 2024 Influenza Vaccine (Season Ended) 2025 RSV Immunization Adult Patie nts (1 - 1-dose 75+ series) 2033 HIB [...] age to complete this topic Meningococcal B Vaccine Aged Out No l onger eligible based on patient's age to complete [...] age to complete this topic Care Teams Motocross Racer Relationship Specialty Start Date End Date Gina Le MD [address] [place] [address] , [address] [facility] D/B/A: [facility] CHADD Guadarrama PCP - General 10/04/22
[2024-11-26 09:21] LABS: B Type Natriuretic Peptide 246 pg/mL (<100)
[2024-11-26 09:23] LABS: Appearance Urine Clear; Color Urine Dark Yellow; Glucose Urine UA Negative (Negative); Leukocyte Esterase Urine Trace (Negative); Nitrite Urine Negative (Negative); Specific Gravity - Urine >= 1.030 (1.005-1.025); UMIC TRIGGER UACC YES; Urine Blood Negative (Negative); Urine Ketones Trace mg/dL (Negative); Urine Protein 30 (1+) mg/dL (Neg-Trace)
[2024-11-26 09:28] LABS: Bacteria Urine None Seen (None Seen); Hyaline Casts Urine 0-2 /LPF (0-2); RBC Urine 0-2 /HPF (0-2); Squamous Epithelial Cell Urine 0-2 /HPF (0-2); WBC Urine 0-5 /HPF (0-5)
[2024-11-26 09:48] LABS: Influenza A PCR NEGATIVE (Negative); Influenza B PCR NEGATIVE (Negative); Resp Syncy Virus RNA Qual PCR NEGATIVE (Negative); SARS COV2 PCR INHOUSE NEGATIVE (Negative)
--- NOTE | 2024-11-26 11:20 | ECG_ITS ---
Test Reason : CHEST PAIN Blood Pressure : */* mmHG Vent. Rate : 73 BPM Atrial Rate : 73 BPM P-R Int : 148 ms QRS Dur : 122 ms QT Int : 422 ms P-R-T Axes : 42 -25 108 degrees QTcB Int : 464 ms Atrial-sensed ventricular-paced rhythm Abnormal ECG When compared with ECG of 04-Nov-2024 21:00, Vent. rate has decreased by 12 bpm Referred By: Rashi Riojas Electronically Signed By: SETH GAGE MD
--- NOTE | 2024-11-26 11:55 | P.HPHOSP_ITS ---
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 Over the last 3-4 days, he has also developed subjective fevers at night as well as shortness of breath only associated with the cough. Has not actually checked his temperature. He denies any sore throat, congestion, abdominal pain, nausea, vomiting, diarrhea, palpitations, orthopnea, edema, dyspnea on exertion, weight gain, PND, or chest pain. In ED, vital signs stable, no leukocytosis. Renal function and electrolyte levels are normal. Troponin 27.4. BNP 246. Urinalysis not indicative of infection. Negative for COVID, flu, RSV. CT of the chest shows left lower lobe atelectasis versus pneumonia as well as cardiomegaly and a moderate pericardial effusion. There is a small left-sided pleural effusion. He had echo performed 11/10 which did not demonstrate any pericardial effusion. In the ED, has been given 1 dose 40 mg IV furosemide, and doxycycline. Review of Systems 2 Review of Systems: Yes all other systems are reviewed and are negative [facility] Medical History CHF exacerbation Acute on chronic systolic and diastolic heart failure, NYHA class 3 Persistent atrial fibrillation Congestive heart failure Atrial flutter Atrial fibrillation with rapid ventricular response Atrial fibrillation Alcohol use Hyperlipidemia LDL goal <70 Chronic sore throat Colon perforation Foreign body in sigmoid colon Onychomycosis 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 pylori) GERD (gastroesophageal reflux disease) Breast pain Dyslipidemia Essential hypertension Obese Abdominal mass Insomnia Family History Father No problems noted. Mother Kidney failure Surgical History H/O abdominal surgery History of colonoscopy Social History Household Members: None Housing: Apartment Do you presently have visiting nurse or other home services: No Alcohol intake: former Patient Tobacco Use Status: Former Tobacco user Tobacco use type: Cigarette Smoked in Last 30 Days: No e-Cigarette/Vaping Use: Never Used Second Hand Smoke Exposure: No Use of substances other than those prescribed or required for medical reasons: No Advance Directives: No Advance Directives Information Provided: Yes Do you have a plan to hurt others: No Plan service: No Current occupational status: retired Cognitive needs: No Hearing needs: No Vision needs: No Meds Allergies Allergy/AdvReac Type Severity Reaction Status Date / Time No Known Allergies Allergy Verified 11/26/24 07:47 [No Known Allergies*] Active Medications: Current Medications Doxycycline Hyclate 100 mg/ (Sodium Chloride) 250 mls @ 166.67 mls/hr IV ONCE ONE Stop: 11/26/24 12:57 Home Medications ?Medication ?Instructions ?Recorded ?Confirmed ?Last Taken ?Type trazodone 100 mg tablet 200 mg PO BEDTIME 03/19/24 11/26/24 11/25/24 History sertraline 50 mg tablet 50 mg PO DAILY 06/17/24 11/26/24 11/26/24 History olanzapine 10 mg tablet 10 mg PO BEDTIME 07/04/24 11/26/24 11/25/24 History amiodarone 200 mg tablet 200 mg PO BID 11/26/24 11/26/24 11/26/24 History aspirin 81 mg tablet,delayed 81 mg PO DAILY 11/26/24 11/26/24 11/26/24 History release melatonin 5 mg tablet 5 mg PO BEDTIME 11/26/24 11/26/24 11/25/24 History metoprolol succinate 25 mg 25 mg PO DAILY 11/26/24 11/26/24 11/26/24 History tablet,extended release 24 hr Physical Exam 2 Vital Signs and Narrative: Vital Signs: Last Vital Signs Temp 98.5 F 11/26/24 09:03 Pulse 76 11/26/24 09:05 Resp 20 11/26/24 09:03 BP 129/81 11/26/24 09:05 Pulse Ox 94 11/26/24 09:05 O2 Del Method Room Air 11/26/24 09:05 BMI result Body Mass Index 34.5 Constitutional - Awake and Alert, No apparent distress Eyes - PERRLA, EOMI Cardiovascular - S1S2, RRR, minimal ble edema , +JVD Respiratory - Normal lung expansion, Normal respiratory effort, No respiratory distress, left sided rhonchi Gastrointestinal - NT / ND; +BS; No rebound or guarding Extremities - no calf tenderness bilaterally, no swelling Skin - Warm/Dry Neurological - Alert & oriented x3 Psychological - Appropriate affect Results Labs 11/26/24 08:31 11/26/24 08:31 Labs: Laboratory Results - last 24 hr 11/26/24 11/26/24 08:31 09:02 MCV 86.9 MCH 29.5 MCHC 34.0 RDW 13.5 Plt Count 363 D MPV 10.1 Immature Gran % (Auto) 0.3 Neut % (Auto) 72.1 Lymph % (Auto) 13.0 L [place] % (Auto) 12.4 H Eos % (Auto) 1.3 Baso % (Auto) 0.9 Lymph # (Auto) 1.0 L [place] # (Auto) 1.0 Eos # (Auto) 0.1 Baso # (Auto) 0.1 Abs Immat Gran (auto) 0.02 Absolute Neuts (auto) 5.7 Absolute Nucleated RBC 0.000 Nucleated RBC % (auto) 0.0 Anion Gap 10 L Estim Creat Clear Calc 101.5 Estimated GFR > 60 Random Glucose 129 H Calcium 9.7 Magnesium 2.1 Total Bilirubin 0.7 Direct Bilirubin 0.3 AST 25 ALT 15 Alkaline Phosphatase 58 B-Natriuretic Peptide 246 H Total Protein 7.2 Albumin 3.7 Lipase 7 L Urine Color Dark Yellow Urine Appearance Clear Urine pH 6.0 Ur Specific [place] >= 1.030 H Urine Protein 30 (1+) H Urine Glucose (UA) Negative Urine Ketones Trace Urine Blood Negative Urine Nitrite Negative Ur Leukocyte Esterase Trace H Urine RBC 0-2 Urine WBC 0-5 Ur Squamous Epith Cells 0-2 Urine Bacteria None Seen Hyaline Casts 0-2 Influenza Type A (PCR) NEGATIVE Influenza Type B (PCR) NEGATIVE RSV RNA Qual (PCR) NEGATIVE SARS-CoV-2 RNA (RT-PCR) NEGATIVE Imaging Radiologist's Impressions: Impressions Chest X-Ray 11/26/24 08:38 IMPRESSION: Cardiomegaly versus pericardial effusion. Left-sided pleural effusion, small to moderate volume. Electronically signed by: Lucius Carpio MD 11/26/2024 08:49 AM EDT RP Chest CT 11/26/24 09:27 IMPRESSION: 1. Left lower lobe atelectasis versus pneumonia. 2. Cardiomegaly. Moderate pericardial effusion as described. 3. Small left pleural effusion. 4. Hepatomegaly and hepatic steatosis. 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 No sepsis IV ctx and doxycycline (11/26) Sputum culture, MRSA nasal swab, strep pneumo antigen, Legionella antigen No hypoxia Follow cultures Acute left basilar pleural effusion likely dependent from pneumonia treat as wbove Heart failure reduced ejection fraction Clinically euvolemic Continue p.o. Lasix Continue Jardiance Persistent atrial fibrillation/flutter Briefly went into RVR-rates up to 140s. Given IV Lopressor 5 mg x 1. Add metoprolol 25 mg t.i.d. Continue Eliquis for anticoagulation Continue amiodarone Continue metoprolol XL BPH Flomax Mood disorder Continue home meds HLD Statin Hypertension Entresto, metoprolol, spironolactone, Lasix DVT prophylaxis-Eliquis Full code Quality Stroke Does the patient have a stroke diagnosis?: No VTE Prior VTE?: No VTE Risk Level:: Medical - moderate - high VTE Device Contraindication: Treatment Not Indicated VTE Drug Contraindication: N/A - Med Ordered
[2024-11-26] MEDS: Furosemide 40 MG/4 ML VIAL IVPUSH (12:08)
[2024-11-26] MEDS: Doxycycline Hyclate 100 MG in 0.9 % Sodium Chloride 250 ML 166.67 MG IV (12:08)
[2024-11-26 12:33] LABS: Troponin-I High Sensitivity 27.4 ng/L (<3.5-35.0)
--- NOTE | 2024-11-26 14:39 | ECG_ITS ---
Test Reason : RYTHM CHANGE Blood Pressure : */* mmHG Vent. Rate : 130 BPM Atrial Rate : * BPM P-R Int : * ms QRS Dur : 130 ms QT Int : 308 ms P-R-T Axes : * -21 151 degrees QTcB Int : 453 ms Atrial fibrillation with rapid ventricular response with occasional ventricular-paced complexes Left bundle branch block Abnormal ECG When compared with ECG of 26-Nov-2024 11:47, Vent. rate has increased by 57 bpm Referred By: Zuly Jennings Electronically Signed By: SETH GAGE MD
[2024-11-26] MEDS: cefTRIAXone sodium 1 GM VIAL IVPUSH (14:44)
[2024-11-26] MEDS: Metoprolol Tartrate 5 MG/5 ML VIAL IVPUSH (14:57)
[2024-11-26] MEDS: Acetaminophen 325 MG TABLET 650 MG PO ×2 (15:06→20:26)
[2024-11-26] MEDS: 0.9 % Sodium Chloride Flush 3 ML SYRINGE IVFLUSH (15:07)
[2024-11-26] MEDS: Metoprolol Tartrate 25 MG TABLET PO ×2 (15:34→20:27)
--- NOTE | 2024-11-26 15:38 | PHA.MEDREC ---
Pharmacy Consult ? Medication Reconciliation Pharmacy has completed the medication reconciliation. Spoke to patient via molder shoulder pad. He was not able to name his medications nor the dose of it but was able to confirm eliquis 5 mg bid and trazodone 200 mg at bedtime. Utilized pharmacy claims for the rest of the medications. Patient said he last took his medications this morning.
--- NOTE | 2024-11-26 16:00 | CA_ITS ---
Transthoracic Echocardiogram Patient (Last, First, Middle): Royal Glover, Gender: Male Date of : 1960 Age: 64 Procedure Date: 11/26/2024 Procedure Type: Transthoracic Echocardiogram Location: ER Height: 157.48 cm Weight: 95.26 kg BSA: 1.95 m2 Heart Rate: bpm BP: 129 / 81 mmHg Boilermaker Apprentice: Referring MD: Rashi Riojas MD Devops Solutions Architect: Marcos Osuna MD Symptoms: pericardial effusion Study Quality: Adequate ECG Rhythm: Sinus Conclusions: - 1. Severely reduced LV ejection fraction 25-30% 2. Moderate circumferential pericardial effusion without obvious signs of tamponade Findings Left Ventricle Severely increased left ventricular cavity size. The left ventricular systolic function is severely decreased. The visually estimated ejection fraction is between 25-30%. There is severe global hypokinesis. Spectral Doppler is indicative of an impaired relaxation filling pattern. Pericardium/Pleural There is a moderate circumferential pericardial effusion. The inferior vena cava is normal in size with preserved respiratory variability. No discernable variation of the mitral valve Doppler velocities with respiration. Measurements 2D Linear Measurements IVSd: 1.32 0.6-0.9/0.6-1.0 cm LVIDd: 7.21 3.9-5.3/4.2-5.9 cm LVIDd Index: 3.70 2.4-3.2/2.2-3.1 cm/m2 LVIDs: 6.02 2.0-3.6 cm LVPWd: 1.24 0.7-1.1 cm LV Mass: 580.08 67-162/88-224 g LV Mass Index: 297.48 43-95/49-115 g/m2 2D Systolic Function EF 4C: 23.40 >55% EF 2C: 32.30 >55% EF BiP: 26.40 >55% Tricuspid Valve TR Pk Noel: 2.47 TR Pk Grad: 24.00 RA Press: 3.00 Updated in Other Vendor System with Status of Final Marcos Osuna MD electronically signed on 11/26/2024 4:31:04 PM with status of Final
--- NOTE | 2024-11-26 16:50 | PC.NURSE ---
1441 Pt with episode of tachycardia and SOB. EKG performed and noted afib. Attending made aware and presented at bedside. Orders given for IV Metoprolol with good result. Attending also added maintenance PO Metoprolol. Pts VSS at this time: HR 77. Attending made aware. No new orders at this time. No follow up EKG indicated per Attending. Pt is A&Ox3 at this time. No complaints offered Will continue to monitor.
[2024-11-26] MEDS: traZODone HCL 100 MG TABLET 200 MG PO (20:26)
[2024-11-26] MEDS: Melatonin 3 MG TABLET 6 MG PO (20:26)
[2024-11-26] MEDS: Amiodarone HCL 200 MG TABLET PO (20:26)
[2024-11-26] MEDS: Apixaban 5 MG TABLET PO (20:27)
[2024-11-26] MEDS: OLANZapine 10 MG TABLET PO (22:12)
--- NOTE | 2024-11-27 01:00 | PC.NURSE ---
LAC IV infusinf NS infiltrated. edemtous region to medial ac fossa. IV removed. no redness/bruising. elevated and heat applied
[2024-11-27 01:57] VITALS: BP 113/74; PULSE 69; RESP 16; TEMP 37.1; O2SAT 94
[2024-11-27] MEDS: Doxycycline Hyclate 100 MG in 0.9 % Sodium Chloride 250 ML 166.67 MG IV ×2 (02:04→14:22)
[2024-11-27] MEDS: Melatonin 3 MG TABLET 6 MG PO ×2 (03:00→21:12)
[2024-11-27 05:49] LABS: MANUAL DIFF FLAG NO
[2024-11-27 05:51] LABS: Basophils Absolute Auto 0.1 X10*3/uL (0.0-0.2); Basophils Percent Auto 0.7 % (0-2); Eosinophils Absolute Auto 0.1 X10*3/uL (0.0-0.4); Eosinophils Percent Auto 1.4 % (0-4); Hematocrit 35.9 % (42.0-52.0); Hemoglobin 11.9 g/dl (14.0-18.0); Imm Gran Abs Auto 0.03 X10*3/uL (0.00-0.03); Imm Gran Pct Auto 0.3 % (0.0-0.4); Lymphocytes Absolute Auto 1.1 X10*3/uL (1.2-4.9); Lymphocytes Percent Auto 12.6 % (20-40); Mean Corpuscular HGB Conc 33.1 g/dl (31.0-36.0); Mean Corpuscular Hemoglobin 29.2 pg (27.0-33.0); Mean Corpuscular Volume 88.2 fL (80.0-98.0); Mean Platelet Volume 10.7 fL (9.4-12.4); Monocytes Absolute Auto 1.3 X10*3/uL (0.1-1.2); Monocytes Percent Auto 14.2 % (2-11); Neutrophils Absolute Auto 6.2 x10*3/uL (2.0-8.3); Neutrophils Percent Auto 70.8 % (45-73); Platelet Count 369 X10*3/uL (160-400); Red Blood Count 4.07 X10*6/uL (4.60-5.80); Red Cell Distribution Width 13.6 % (11.0-16.0); White Blood Count 8.8 X10*3/uL (4.8-10.8)
[2024-11-27 06:07] LABS: Anion Gap 13 (12-20); Blood Urea Nitrogen 14 mg/dL (9-16); Calcium 9.1 mg/dL (8.4-10.2); Carbon Dioxide 23 mmol/L (22-29); Chloride 106 mmol/L (96-108); Creatinine Clr Calc Pharmacy 101.5; Estimated Glomerular Filt Rate > 60; Glucose Random 111 mg/dL (60-115); Potassium 3.6 mmol/L (3.3-5.1); Sodium 138 mmol/L (135-145)
[2024-11-27 06:24] VITALS: BP 101/68; PULSE 70; RESP 16; TEMP 36.9; O2SAT 95
--- NOTE | 2024-11-27 07:30 | PC.NURSE ---
a&ox4. vss and up to date. nsr on the outdoor adventure leader. a-paced. pt currently has no physical complaints at this time. denies pain. abx administered per provider order. pt currently pending bed assignment. on RA w/o difficulty. no sob/wob noted. respirations even/unlabored. plan of care ongoing. call villatoro placed within reach.
[2024-11-27] MEDS: Aspirin Enteric Coated 81 MG TABLET.DR PO (08:59)
[2024-11-27] MEDS: Amiodarone HCL 200 MG TABLET PO ×2 (08:59→21:13)
[2024-11-27] MEDS: Furosemide 40 MG TABLET PO (08:59)
[2024-11-27] MEDS: Apixaban 5 MG TABLET PO (08:59)
[2024-11-27] MEDS: Atorvastatin Calcium 80 MG TABLET PO (09:00)
[2024-11-27] MEDS: Metoprolol Succinate ER 25 MG TAB.ER.24H PO (09:00)
[2024-11-27] MEDS: Sertraline HCL 50 MG TABLET PO (09:00)
[2024-11-27] MEDS: Empagliflozin 10 MG TABLET PO (09:00)
--- NOTE | 2024-11-27 09:02 | MHC.CM.PN ---
ZUNIGA was addressed.Patient lives alone and has [facility] 20.5 hours/week. Home/resume said services is the goal and CM has initiated and will follow for dc planning. PCP is Dr.Ana Daigle and HCP is on file ([facility] Patient may require assist with transport at time of dc).
--- NOTE | 2024-11-27 09:10 | PC.NURSE ---
pt medicated per provider order. resting comfortably in no apparent distress. plan of care ongoing. call villatoro placed within reach.
--- NOTE | 2024-11-27 09:49 | PM.CNCAR ---
History of Present Illness History of Present Illness Date of Service: 11/27/24 Requesting physician: Zuly Jennings Consult reason: other ( pericardial effusion) Chief complaint: Pericardia effusion pneumonia Narrative: I was consulted to see Royal in cardiology consultation today for new onset pericardial effusion. Patient came to the hospital with fever chills and productive cough and shortness of breath. Subsequent workup with chest CTA was done due to chest x-ray findings suggestive of pericardial effusion revealed moderate pericardial effusion with small left-sided pleural effusion with left lower lobe pneumonia. Subsequent echocardiogram was performed which confirmed moderate to moderately large effusion with severely reduced LV ejection fraction with no evidence of cardiac tamponade. Cardiology consult was sought for further management plan. Patient says he feels better but still appears to be somewhat short of breath. Had episode of atrial fibrillation yesterday but has converted back in his currently appears to be in atrial sensed ventricularly paced rhythm. He was prior history of severe cardiomyopathy in the setting of atrial fibrillation. He has undergone atrial fibrillation ablation and had subsequently a Bi V ICD placed. He persists with heart failure syndrome but has not been recently hospitalized for the same. Currently taking all his medications at home as listed. Review of Systems Constitutional: Constitutional: Reports chills and Reports fever(s) Eyes: Eyes: Reports no additional eye complaints Cardiovascular: Cardiovascular: Denies chest pain, Denies rapid heart rate, Denies lightheadedness, Denies Loss of Consciousness, Denies palpitations and Reports dyspnea Respiratory: Respiratory: Reports cough, Reports excessive phlegm production and Reports dyspnea Gastrointestinal: Gastrointestinal: Reports no additional gastrointestinal complaints Genitourinary: Genitourinary: Reports no additional male genitourinary complaints Musculoskeletal: Musculoskeletal: Reports no additional musculoskeletal complaints Integumentary/Breasts: Skin/Breast: Reports system reviewed and no additional complaints, except as docu Endocrine: Endocrine: Denies palpitations PMFSH Past Medical History Medical History CHF exacerbation Acute on chronic systolic and diastolic heart failure, NYHA class 3 Persistent atrial fibrillation Congestive heart failure Atrial flutter Atrial fibrillation with rapid ventricular response Atrial fibrillation Alcohol use Hyperlipidemia LDL goal <70 Chronic sore throat Colon perforation Foreign body in sigmoid colon Onychomycosis 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 pylori) GERD (gastroesophageal reflux disease) Breast pain Dyslipidemia Essential hypertension Obese Abdominal mass Insomnia Family History Family History Father No problems noted. Mother Kidney failure Surgical History Surgical History H/O abdominal surgery History of colonoscopy Social History Social History Household Members: None Housing: Apartment Do you presently have visiting nurse or other home services: No Alcohol intake: former Patient Tobacco Use Status: Former Tobacco user Tobacco use type: Cigarette Smoked in Last 30 Days: No e-Cigarette/Vaping Use: Never Used Second Hand Smoke Exposure: No Use of substances other than those prescribed or required for medical reasons: No Advance Directives: No Advance Directives Information Provided: Yes Do you have a plan to hurt others: No Plan service: No Current occupational status: retired Cognitive needs: No Hearing needs: No Vision needs: No Meds Allergies Allergy/AdvReac Type Severity Reaction Status Date / Time No Known Allergies Allergy Verified 11/26/24 07:47 [No Known Allergies*] Active Medications: Current Medications Acetaminophen (Acetaminophen 325 Mg Tablet) 650 mg PO Q6H PRN PRN Reason: Pain, Mild 1-3,fever,headache Last Admin: 11/26/24 20:26 Dose: 650 mg Amiodarone HCl (Amiodarone Hcl 200 Mg Tablet) 200 mg PO BID [facility] Last Admin: 11/27/24 08:59 Dose: 200 mg Apixaban (Apixaban 5 Mg Tablet) 5 mg PO BID [facility] Last Admin: 11/27/24 08:59 Dose: 5 mg Aspirin (Aspirin Enteric Coated 81 Mg Tablet.Dr) 81 mg PO DAILY [facility] Last Admin: 11/27/24 08:59 Dose: 81 mg Atorvastatin Calcium (Atorvastatin Calcium 80 Mg Tablet) 80 mg PO DAILY [facility] Last Admin: 11/27/24 09:00 Dose: 80 mg Benzonatate (Benzonatate 100 Mg Capsule) 100 mg PO TID PRN PRN Reason: Cough Calcium Carbonate (Calcium Carbonate 750 Mg Tab.Chew) 750 mg PO Q4H PRN PRN Reason: Heartburn Ceftriaxone Sodium (Ceftriaxone Sodium 1 Gm Vial) 1 gm IVPUSH Q24H [facility] Last Admin: 11/26/24 14:44 Dose: 1 gm Empagliflozin (Empagliflozin 10 Mg Tablet) 10 mg PO DAILY [facility] Last Admin: 11/27/24 09:00 Dose: 10 mg Furosemide (Furosemide 40 Mg Tablet) 40 mg PO DAILY [facility]; Protocol Last Admin: 11/27/24 08:59 Dose: 40 mg Doxycycline Hyclate 100 mg/ (Sodium Chloride) 250 mls @ 166.67 mls/hr IV Q12H [facility] Last Infusion: 11/27/24 07:22 Dose: Infused Magnesium Hydroxide (Milk Of Magnesia 30 Ml Oral.Susp) 30 ml PO DAILY PRN PRN Reason: Constipation Melatonin (Melatonin 3 Mg Tablet) 6 mg PO BEDTIME PRN PRN Reason: Insomnia Last Admin: 11/27/24 03:00 Dose: 6 mg Melatonin (Melatonin 3 Mg Tablet) 6 mg PO BEDTIME [facility] Last Admin: 11/26/24 20:26 Dose: 6 mg Metoprolol Succinate (Metoprolol Succinate Er 25 Mg Tab.Er.24h) 25 mg PO DAILY [facility]; Protocol Last Admin: 11/27/24 09:00 Dose: 25 mg Olanzapine (Olanzapine 10 Mg Tablet) 10 mg PO BEDTIME [facility] Last Admin: 11/26/24 22:12 Dose: 10 mg Sertraline HCl (Sertraline Hcl 50 Mg Tablet) 50 mg PO DAILY [facility] Last Admin: 11/27/24 09:00 Dose: 50 mg Sodium Chloride (0.9 % Sodium Chloride Flush 3 Ml Syringe) [facility] Last Admin: 11/27/24 08:29 Dose: Not Given Trazodone HCl (Trazodone Hcl 100 Mg Tablet) 200 mg PO BEDTIME [facility] Last Admin: 11/26/24 20:26 Dose: 200 mg Home Medications ?Medication ?Instructions ?Recorded ?Confirmed ?Last Taken ?Type trazodone 100 mg tablet 200 mg PO BEDTIME 03/19/24 11/26/24 11/25/24 History sertraline 50 mg tablet 50 mg PO DAILY 06/17/24 11/26/24 11/26/24 History olanzapine 10 mg tablet 10 mg PO BEDTIME 07/04/24 11/26/24 11/25/24 History amiodarone 200 mg tablet 200 mg PO BID 11/26/24 11/26/24 11/26/24 History aspirin 81 mg tablet,delayed 81 mg PO DAILY 11/26/24 11/26/24 11/26/24 History release melatonin 5 mg tablet 5 mg PO BEDTIME 11/26/24 11/26/24 11/25/24 History metoprolol succinate 25 mg 25 mg PO DAILY 11/26/24 11/26/24 11/26/24 History tablet,extended release 24 hr Physical Exam Vital Signs: Vital Signs: Last Vital Signs Temp 98.4 F 11/27/24 06:24 Pulse 70 11/27/24 06:24 Resp 16 11/27/24 06:24 BP 101/68 11/27/24 06:24 Pulse Ox 95 11/27/24 06:24 O2 Del Method Room Air 11/27/24 06:24 BMI result Body Mass Index 34.5 Const: General: cooperative, alert, awake and in distress mild and respiratory Nutritional Appearance: obese Orientation/consciousness: patient oriented x3 HEENT: Head: Yes normocephalic and Yes atraumatic Neck: Neck: Yes trachea midline, Yes supple and Yes no JVD Resp: Effort & Inspection: normal respiratory effort Auscultation: no rales, no wheezes and breath sounds absent on th left (base) Cardio: Jugular venous distension: no JVD Palpation: abnormal PMI displaced PMI Rate: regular rate Rhythm: regular rhythm Heart sounds: S1 normal heart sound present, S2 normal heart sound present, no click, no gallops and no murmurs GI: Inspection: Yes obesity Auscultation: normal bowel sounds Skin: General skin exam: no rashes or lesions noted Neuro: General: patient oriented x3 and no focal motor deficits Extrem: General: Yes no clubbing, cyanosis or edema Objective Labs and Meds 11/27/24 05:03 11/27/24 05:03 Lab results: Laboratory Results - last 24 hr 11/26/24 11/27/24 12:00 05:03 WBC 8.8 RBC 4.07 L Hgb 11.9 L Hct 35.9 L MCV 88.2 MCH 29.2 MCHC 33.1 RDW 13.6 Plt Count 369 MPV 10.7 Immature Gran % (Auto) 0.3 Neut % (Auto) 70.8 Lymph % (Auto) 12.6 L [place] % (Auto) 14.2 H Eos % (Auto) 1.4 Baso % (Auto) 0.7 Lymph # (Auto) 1.1 L [place] # (Auto) 1.3 H Eos # (Auto) 0.1 Baso # (Auto) 0.1 Abs Immat Gran (auto) 0.03 Absolute Neuts (auto) 6.2 Absolute Nucleated RBC 0.000 Nucleated RBC % (auto) 0.0 Sodium 138 Potassium 3.6 Chloride 106 Carbon Dioxide 23 Anion Gap 13 BUN 14 Creatinine 0.78 Estim Creat Clear Calc 101.5 Estimated GFR > 60 Random Glucose 111 Calcium 9.1 D Troponin I High Sens 27.4 Imaging Radiologist's impression: Impressions Chest CT 11/26/24 09:27 IMPRESSION: 1. Left lower lobe atelectasis versus pneumonia. 2. Cardiomegaly. Moderate pericardial effusion as described. 3. Small left pleural effusion. 4. Hepatomegaly and hepatic steatosis. Electronically signed by: Elias Wiley MD 11/26/2024 10:25 AM EDT RP Assessment and Plan (1) Acute pericardial effusion: Status: Acute Acute pericardial effusion in this elderly gentleman with prior history of severe cardiomyopathy with evidence of pneumonia and symptoms from respiratory perspective most likely parapneumonic/inflammatory. Given the acute onset of pericardial effusion although with no signs of tamponade I would consider pericardiocentesis. Discussed with IR about the same. I would hold his Eliquis for today. Continue all other cardiac medications except for the diuretics. He is currently does not appear to be in heart failure and would like to avoid significant preload reduction which may cause him hemodynamic compromise. Continue amiodarone for rhythm control. Continue other cardiac meds. Post drainage will need repeat echocardiogram limited to evaluate for adequacy of drainage as well as may need to consider anti-inflammatory therapy although colchicine will need to be use with caution given that he is on amiodarone therapy and will need to discuss with pharmacy about the same. Will follow with him Procedures Date of Service Date of Service: 11/27/24
[2024-11-27 10:29] LABS: MRSA Nasal PCR NEGATIVE (Negative); SA Nasal PCR NEGATIVE (Negative)
[2024-11-27 11:21] LABS: Adenovirus PCR Not Detected (Not Detect.); Bordetella parapertussis PCR Not Detected (Not Detect.); Bordetella pertussis PCR Not Detected (Not Detect.); Chlamydia pneumoniae PCR Not Detected (Not Detect.); Coronavirus 229E PCR Not Detected (Not Detect.); Coronavirus HKU1 PCR Not Detected (Not Detect.); Coronavirus NL63 PCR Not Detected (Not Detect.); Coronavirus OC43 PCR Not Detected (Not Detect.); Human metapneumovirus PCR Not Detected (Not Detect.); Influenza A PCR Not Detected (Not Detect.); Influenza B PCR Detected (Not Detect.); Mycoplasma pneumoniae PCR Not Detected (Not Detect.); Parainfluenza 1 PCR Not Detected (Not Detect.); Parainfluenza 2 PCR Not Detected (Not Detect.); Parainfluenza 3 PCR Not Detected (Not Detect.); Parainfluenza 4 PCR Not Detected (Not Detect.); RSV PCR Not Detected (Not Detect.); Rhino/Enterovirus PCR Not Detected (Not Detect.)
[2024-11-27 11:23] LABS: Influenza A H1 PCR Not Detected (Not Detect.); Influenza A H1-2009 PCR Not Detected (Not Detect.); Influenza A H3 PCR Not Detected (Not Detect.); SARS-CoV-2 PCR Not Detected (Not Detect.)
--- NOTE | 2024-11-27 12:31 | MHC.CM.PN ---
Per UR/RN/CM, Patient has been switched from OBSERVATION to INPATIENT; IMM has been addressed.
--- NOTE | 2024-11-27 14:00 | PC.NURSE ---
sitting upright eating lunch in no apparent distress. remains bedside for support. plan of care ongoing. call villatoro placed within reach.
[2024-11-27] MEDS: cefTRIAXone sodium 1 GM VIAL IVPUSH (14:22)
--- NOTE | 2024-11-27 15:56 | P.PNIM_ITS ---
Subjective Subjective Date of Service: 11/27/24 Interval History: Pneumonia, pericardial effusion Review of Systems Patient says shortness of breath improving Denies any chest pain, no fever no cough Review of Systems: Yes all other systems are reviewed and are negative Physical Exam 2 Vital Signs: Vital Signs: Last Vital Signs Temp 98.4 F 11/27/24 06:24 Pulse 70 11/27/24 06:24 Resp 16 11/27/24 06:24 BP 101/68 11/27/24 06:24 Pulse Ox 95 11/27/24 06:24 O2 Del Method Room Air 11/27/24 06:24 BMI result Body Mass Index 34.5 Appearance: Alert.? Oriented X3.? cvs: rrr, [id number] res: air netry fair . abd: soft,nt, bs present. ext pulses present , no cyanosis . neuro: axo3 , nonfocal. Objective Data Active Medications Acetaminophen (Acetaminophen 325 Mg Tablet) 650 mg PO Q6H PRN PRN Reason: Pain, Mild 1-3,fever,headache Last Admin: 11/26/24 20:26 Dose: 650 mg Documented By: HEATHER Amiodarone HCl (Amiodarone Hcl 200 Mg Tablet) 200 mg PO BID [facility] Last Admin: 11/27/24 08:59 Dose: 200 mg Documented By: TRAN Atorvastatin Calcium (Atorvastatin Calcium 80 Mg Tablet) 80 mg PO DAILY [facility] Last Admin: 11/27/24 09:00 Dose: 80 mg Documented By: TRAN Benzonatate (Benzonatate 100 Mg Capsule) 100 mg PO TID PRN PRN Reason: Cough Calcium Carbonate (Calcium Carbonate 750 Mg Tab.Chew) 750 mg PO Q4H PRN PRN Reason: Heartburn Ceftriaxone Sodium (Ceftriaxone Sodium 1 Gm Vial) 1 gm IVPUSH Q24H [facility] Last Admin: 11/27/24 14:22 Dose: 1 gm Documented By: TRAN Empagliflozin (Empagliflozin 10 Mg Tablet) 10 mg PO DAILY [facility] Last Admin: 11/27/24 09:00 Dose: 10 mg Documented By: TRAN Furosemide (Furosemide 40 Mg Tablet) 40 mg PO DAILY [facility]; Protocol Last Admin: 11/27/24 08:59 Dose: 40 mg Documented By: TRAN Doxycycline Hyclate 100 mg/ (Sodium Chloride) 250 mls @ 166.67 mls/hr IV Q12H [facility] Last Admin: 11/27/24 14:22 Dose: 166.67 mls/hr Documented By: TRAN Magnesium Hydroxide (Milk Of Magnesia 30 Ml Oral.Susp) 30 ml PO DAILY PRN PRN Reason: Constipation Melatonin (Melatonin 3 Mg Tablet) 6 mg PO BEDTIME PRN PRN Reason: Insomnia Last Admin: 11/27/24 03:00 Dose: 6 mg Documented By: HEATHER Melatonin (Melatonin 3 Mg Tablet) 6 mg PO BEDTIME [facility] Last Admin: 11/26/24 20:26 Dose: 6 mg Documented By: HEATHER Metoprolol Succinate (Metoprolol Succinate Er 25 Mg Tab.Er.24h) 25 mg PO DAILY [facility]; Protocol Last Admin: 11/27/24 09:00 Dose: 25 mg Documented By: TRAN Olanzapine (Olanzapine 10 Mg Tablet) 10 mg PO BEDTIME [facility] Last Admin: 11/26/24 22:12 Dose: 10 mg Documented By: HEATHER Sertraline HCl (Sertraline Hcl 50 Mg Tablet) 50 mg PO DAILY [facility] Last Admin: 11/27/24 09:00 Dose: 50 mg Documented By: TRAN Sodium Chloride (0.9 % Sodium Chloride Flush 3 Ml Syringe) 3 ml IVFLUSH QSHIFT [facility] Last Admin: 11/27/24 15:51 Dose: Not Given Documented By: TRAN Non-Admin Reason: IV Running Trazodone HCl (Trazodone Hcl 100 Mg Tablet) 200 mg PO BEDTIME [facility] Last Admin: 11/26/24 20:26 Dose: 200 mg Documented By: HEATHER Labs 11/27/24 05:03 11/27/24 05:03 Labs: Laboratory Results - last 24 hr 11/26/24 11/27/24 19:45 05:03 MCV 88.2 MCH 29.2 MCHC 33.1 RDW 13.6 Plt Count 369 MPV 10.7 Immature Gran % (Auto) 0.3 Neut % (Auto) 70.8 Lymph % (Auto) 12.6 L [place] % (Auto) 14.2 H Eos % (Auto) 1.4 Baso % (Auto) 0.7 Lymph # (Auto) 1.1 L [place] # (Auto) 1.3 H Eos # (Auto) 0.1 Baso # (Auto) 0.1 Abs Immat Gran (auto) 0.03 Absolute Neuts (auto) 6.2 Absolute Nucleated RBC 0.000 Nucleated RBC % (auto) 0.0 Anion Gap 13 Estim Creat Clear Calc 101.5 Estimated GFR > 60 Random Glucose 111 Calcium 9.1 D Nasal Screen MRSA (PCR) NEGATIVE Nasal S. aureus Screen NEGATIVE Nasal MRSA/S.aureus Interp SEE NOTE Respiratory Panel [place] See Note Adenovirus (Rapid PCR) Not Detected B.pert (TEM-PCR) Not Detected B.parapertussis DNA PCR Not Detected C. pneumoniae DNA (PCR) Not Detected Coronavirus OC43 (PCR) Not Detected Coronavirus HKU1 (PCR) Not Detected Coronavirus 229E (PCR) Not Detected Coronavirus NL63 (PCR) Not Detected Human Metapneumovir PCR Not Detected Influenza A (RT-PCR) Not Detected Influenza A (H1) PCR Not Detected Influ A (H1/09) PCR Not Detected Influenza A (H3) PCR Not Detected Influenza B (RT-PCR) Detected A M. pneumoniae (PCR) Not Detected Parainfluenza 1 (PCR) Not Detected Parainfluenza 2 (PCR) Not Detected Parainfluenza 3 (PCR) Not Detected Parainfluenza 4 (PCR) Not Detected RSV (PCR) Not Detected Entero/Rhino (PCR) Not Detected SARS-CoV-2 RNA (RT-PCR) Not Detected Microbiology Microbiology Results: Microbiology 11/26/24 12:01 Blood Culture - Preliminary Blood - Venous No growth after 24 hours. 11/26/24 12:00 Blood Culture - Preliminary Blood - Venous No growth after 24 hours. 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 Moderate circumferential pericardial effusion without obvious signs of tamponade cardiology consult-plan for pericardial fusion drainage in a.m., hold anticoagulation, NPO past midnight. will hold diuretics to avoid preload reduction as well as patient less likely acute CHF. monitor on telemetry Post viral LLL pneumonia No leukocytosis. No sepsis IV ctx and doxycycline (11/26) Sputum culture, MRSA nasal swab, strep pneumo antigen, Legionella antigen No hypoxia Follow cultures Acute left basilar pleural effusion likely dependent from pneumonia treat as above hx Heart failure reduced ejection fraction Clinically euvolemic Continue Jardiance,bb Persistent atrial fibrillation/flutter hr improving hold Eliquis for anticoagulation-need pericardiocentesis. Continue amiodarone, metoprolol XL. BPH Flomax Mood disorder Continue home meds HLD Statin Hypertension Entresto, metoprolol, home meds does not show lasix. DVT prophylaxis-Eliquis Full code Quality Stroke Does the patient have a stroke diagnosis?: No VTE Prior VTE?: No VTE Risk Level:: Medical - moderate - high VTE Device Contraindication: Treatment Not Indicated VTE Drug Contraindication: N/A - Med Ordered
[2024-11-27 16:14] VITALS: BP 106/31; BP 112/66; PULSE 56; PULSE 74; RESP 18; TEMP 36.8; O2SAT 90; O2SAT 98
--- NOTE | 2024-11-27 16:15 | PC.NURSE ---
pt noted to desat to 90% on RA. no apparent respiratory distress noted. no sob/wob noted. espirations even/unlabored. pt placed on 2L via NC for supplemental O2 - SPO2 @ 98%. otherwise vss and up to date. nsr on the compliance monitor - a paced. plan of care ongoing. call villatoro placed within reach.
[2024-11-27] MEDS: Acetaminophen 325 MG TABLET 650 MG PO (16:33)
--- NOTE | 2024-11-27 16:33 | PC.NURSE ---
pt verbalizing increase in headache - requesting medication. neuros remain intact. prn medication utilized. urine specimen obtained/sent to lab. pt remains on 2L via NC at this time. no sob/wob noted. respirations even/unlabored. pt pending transport for bed assignment. bedside for support. plan of care ongoing. call villatoro placed within reach.
[2024-11-27 17:23] VITALS: BMI 34.0
[2024-11-27 17:28] VITALS: BP 114/70; PULSE 68; RESP 16; TEMP 36.8; O2SAT 98
[2024-11-27 19:32] VITALS: BP 133/72; PULSE 69; RESP 14; TEMP 36.8; O2SAT 97
[2024-11-27] MEDS: traZODone HCL 100 MG TABLET 200 MG PO (21:13)
[2024-11-27] MEDS: OLANZapine 10 MG TABLET PO (21:13)
[2024-11-27] MEDS: 0.9 % Sodium Chloride Flush 3 ML SYRINGE IVFLUSH (21:21)
[2024-11-27 23:50] VITALS: BP 119/64; PULSE 73; RESP 20; TEMP 36.6; O2SAT 94
[2024-11-28] VITALS (13 sets, daily range): BP systolic 107–142; BP diastolic 56–90; PULSE 68–113; RESP 15–24; TEMP 36–36.9; O2SAT 92–98
[2024-11-28] MEDS: Doxycycline Hyclate 100 MG in 0.9 % Sodium Chloride 250 ML 166.67 MG IV ×2 (00:46→15:18)
[2024-11-28 07:50] LABS: INTERNATIONAL NORM RATIO 1.3 (0.9-1.1); Prothrombin Time 15.2 SEC (10.9-12.4)
[2024-11-28] MEDS: Sertraline HCL 50 MG TABLET PO (09:06)
[2024-11-28] MEDS: Atorvastatin Calcium 80 MG TABLET PO (09:06)
[2024-11-28] MEDS: Empagliflozin 10 MG TABLET PO (09:06)
[2024-11-28] MEDS: Amiodarone HCL 200 MG TABLET PO ×2 (09:07→19:49)
[2024-11-28] MEDS: Metoprolol Succinate ER 25 MG TAB.ER.24H PO (09:07)
[2024-11-28] MEDS: 0.9 % Sodium Chloride Flush 3 ML SYRINGE IVFLUSH ×3 (09:07→19:54)
--- NOTE | 2024-11-28 10:00 | P.PNCA_ITS ---
Subjective Subjective Date of Service: 11/28/24 Principal diagnosis: Pericardial effusion, cardiomyopathy Interval history: Patient denies any shortness of breath. No heart failure symptoms. Remains in sinus rhythm. Plan for pericardiocentesis. Diagnose with influenza B Review of Systems Constitutional: Reports no additional constitutional complaints Cardiovascular: Denies chest pain, Denies lightheadedness, Denies Loss of Consciousness, Denies palpitations, Reports dyspnea on exertion and Denies orthopnea Respiratory: Reports cough and Reports dyspnea on exertion Endocrine: Denies palpitations Physical Exam Vital Signs: Last Vital Signs Temp 96.8 F 11/28/24 07:11 Pulse 70 11/28/24 07:11 Resp 16 11/28/24 07:11 BP 117/71 11/28/24 07:11 Pulse Ox 95 11/28/24 07:11 O2 Del Method Nasal Cannula 11/28/24 07:11 O2 Flow Rate 1 11/28/24 07:11 BMI result Body Mass Index 34.0 Const General: cooperative, alert, awake and in distress mild and respiratory Nutritional Appearance: obese Orientation/consciousness: patient oriented x3 HEENT Head: Yes normocephalic and Yes atraumatic Neck Neck: Yes trachea midline, Yes supple and Yes no JVD Resp Effort & Inspection: normal respiratory effort Auscultation: no rales, no wheezes and breath sounds absent on th left (base) Cardio Jugular venous distension: no JVD Palpation: abnormal PMI displaced PMI Rate: regular rate Rhythm: regular rhythm Heart sounds: S1 normal heart sound present, S2 normal heart sound present, no click, no gallops and no murmurs GI Inspection: Yes obesity Auscultation: normal bowel sounds Skin General skin exam: no rashes or lesions noted Neuro General: patient oriented x3 and no focal motor deficits Extrem General: Yes no clubbing, cyanosis or edema Objective Labs and Meds 11/27/24 05:03 11/27/24 05:03 Lab results: Laboratory Results - last 24 hr 11/26/24 11/28/24 19:45 07:05 Hold Purple Top SEE NOTE PT 15.2 H INR 1.3 H APTT 34.0 Nasal Screen MRSA (PCR) NEGATIVE Nasal S. aureus Screen NEGATIVE Nasal MRSA/S.aureus Interp SEE NOTE Respiratory Panel [place] See Note Adenovirus (Rapid PCR) Not Detected B.pert (TEM-PCR) Not Detected B.parapertussis DNA PCR Not Detected C. pneumoniae DNA (PCR) Not Detected Coronavirus OC43 (PCR) Not Detected Coronavirus HKU1 (PCR) Not Detected Coronavirus 229E (PCR) Not Detected Coronavirus NL63 (PCR) Not Detected Human Metapneumovir PCR Not Detected Influenza A (RT-PCR) Not Detected Influenza A (H1) PCR Not Detected Influ A (H1/09) PCR Not Detected Influenza A (H3) PCR Not Detected Influenza B (RT-PCR) Detected A M. pneumoniae (PCR) Not Detected Parainfluenza 1 (PCR) Not Detected Parainfluenza 2 (PCR) Not Detected Parainfluenza 3 (PCR) Not Detected Parainfluenza 4 (PCR) Not Detected RSV (PCR) Not Detected Entero/Rhino (PCR) Not Detected SARS-CoV-2 RNA (RT-PCR) Not Detected Blood Type O Positive Antibody Screen NEGATIVE Progress Note: A&P Assessment and plan (1) Acute pericardial effusion: Status: Acute Assessment and Plan: Acute moderate pericardial effusion without any clinical signs of tamponade but developed over the last few weeks related to viral illness. Most likely pericarditis. Plan for undergoing pericardiocentesis today. Send appropriate testing with the pericardial fluid. I would consider treating him with anti- inflammatory therapy with colchicine should be dose adjusted given patient was on amiodarone and should be discussed with pharmacy about the same. Follow-up limited echocardiogram tomorrow (2) Chronic systolic heart failure: Status: Acute Assessment and Plan: Severe cardiomyopathy without overt signs of heart failure. Continue neurohormonal modulation with metoprolol. Consider adding low-dose Entresto therapy after pericardiocentesis. Continue Jardiance. Hold off on diuretic regimen at this point time. Continue treat underlying viral illness/pneumonia. (3) Paroxysmal atrial fibrillation: Status: Acute Assessment and Plan: Paroxysmal atrial fibrillation remained suppressed. Eliquis being held because of intended procedure. Resume as soon as possible. Continue amiodarone therapy for now. Will follow with you Time Spent With Patient Time: Total time managing care of this patient today ____ minutes. Progress Note: Quality Stroke Does the patient have a stroke diagnosis?: No Procedures Date of Service Date of Service: 11/28/24
[2024-11-28] MEDS: fentaNYL citrate/PF 100 MCG/2 ML VIAL 50 MCG IVPUSH (14:25)
--- NOTE | 2024-11-28 15:13 | P.PNIM_ITS ---
Subjective Subjective Date of Service: 11/28/24 Interval History: Pneumonia, pericardial effusion Review of Systems has some intermitent sob denies any chest pain Physical Exam 2 Vital Signs: Vital Signs: Last Vital Signs Temp 97.7 F 11/28/24 10:51 Pulse 108 H 11/28/24 14:45 Resp 20 11/28/24 14:45 BP 132/87 11/28/24 14:45 Pulse Ox 96 11/28/24 14:45 O2 Del Method Nasal Cannula 11/28/24 14:45 O2 Flow Rate 2 11/28/24 14:45 BMI result Body Mass Index 34.0 Appearance: Alert.? Oriented X3.? cvs: rrr, [id number] res: air netry fair . abd: soft,nt, bs present. ext pulses present , no cyanosis . neuro: axo3 , nonfocal. Objective Data Active Medications Acetaminophen (Acetaminophen 325 Mg Tablet) 650 mg PO Q6H PRN PRN Reason: Pain, Mild 1-3,fever,headache Last Admin: 11/27/24 16:33 Dose: 650 mg Documented By: TRAN Amiodarone HCl (Amiodarone Hcl 200 Mg Tablet) 200 mg PO BID [facility] Last Admin: 11/28/24 09:07 Dose: 200 mg Documented By: ROQUE Atorvastatin Calcium (Atorvastatin Calcium 80 Mg Tablet) 80 mg PO DAILY [facility] Last Admin: 11/28/24 09:06 Dose: 80 mg Documented By: ROQUE Benzonatate (Benzonatate 100 Mg Capsule) 100 mg PO TID PRN PRN Reason: Cough Calcium Carbonate (Calcium Carbonate 750 Mg Tab.Chew) 750 mg PO Q4H PRN PRN Reason: Heartburn Ceftriaxone Sodium (Ceftriaxone Sodium 1 Gm Vial) 1 gm IVPUSH Q24H [facility] Last Admin: 11/27/24 14:22 Dose: 1 gm Documented By: TRAN Empagliflozin (Empagliflozin 10 Mg Tablet) 10 mg PO DAILY [facility] Last Admin: 11/28/24 09:06 Dose: 10 mg Documented By: ROQUE Doxycycline Hyclate 100 mg/ (Sodium Chloride) 250 mls @ 166.67 mls/hr IV Q12H [facility] Last Infusion: 11/28/24 02:20 Dose: Infused Documented By: MADELEINE Magnesium Hydroxide (Milk Of Magnesia 30 Ml Oral.Susp) 30 ml PO DAILY PRN PRN Reason: Constipation Melatonin (Melatonin 3 Mg Tablet) 6 mg PO BEDTIME PRN PRN Reason: Insomnia Last Admin: 11/27/24 03:00 Dose: 6 mg Documented By: LAFLAMC Melatonin (Melatonin 3 Mg Tablet) 6 mg PO BEDTIME [facility] Last Admin: 11/27/24 21:12 Dose: 6 mg Documented By: MADELEINE Metoprolol Succinate (Metoprolol Succinate Er 25 Mg Tab.Er.24h) 25 mg PO DAILY [facility]; Protocol Last Admin: 11/28/24 09:07 Dose: 25 mg Documented By: ROQUE Olanzapine (Olanzapine 10 Mg Tablet) 10 mg PO BEDTIME [facility] Last Admin: 11/27/24 21:13 Dose: 10 mg Documented By: MADELEINE Sertraline HCl (Sertraline Hcl 50 Mg Tablet) 50 mg PO DAILY [facility] Last Admin: 11/28/24 09:06 Dose: 50 mg Documented By: ROQUE Sodium Chloride (0.9 % Sodium Chloride Flush 3 Ml Syringe) 3 ml IVFLUSH QSHIFT [facility] Last Admin: 11/28/24 09:07 Dose: 3 ml Documented By: ROQUE Trazodone HCl (Trazodone Hcl 100 Mg Tablet) 200 mg PO BEDTIME [facility] Last Admin: 11/27/24 21:13 Dose: 200 mg Documented By: MADELEINE Labs 11/27/24 05:03 11/27/24 05:03 Labs: Laboratory Results - last 24 hr 11/28/24 07:05 Hold Purple Top SEE NOTE PT 15.2 H INR 1.3 H APTT 34.0 Blood Type O Positive Antibody Screen NEGATIVE Microbiology Microbiology Results: Microbiology 11/26/24 12:00 Blood Culture - Preliminary Blood - Venous No growth after 48 hours. 11/26/24 12:01 Blood Culture - Preliminary Blood - Venous No growth after 48 hours. 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 Moderate circumferential pericardial effusion without obvious signs of tamponade cardiology consult-s/p pericardiocentesis-labs sent added colchicine Hold anticoagulation for today as per IR since status post pericardiocentesis. will hold diuretics to avoid preload reduction as well as patient less likely acute CHF. monitor on telemetry Post viral LLL pneumonia also positive for influenza b No leukocytosis. No sepsis,no hypxia IV ctx and doxycycline (11/26) Sputum culture, MRSA nasal swab-negative , strep pneumo / Legionella antigen: pending Follow cultures Acute left basilar pleural effusion likely dependent from pneumonia treat as above hx Heart failure reduced ejection fraction Clinically euvolemic Continue Jardiance,bb Persistent atrial fibrillation/flutter hr improving hold Eliquis for anticoagulation-need pericardiocentesis. Continue amiodarone, metoprolol XL. BPH Flomax Mood disorder Continue home meds HLD Statin Hypertension Entresto, metoprolol, home meds does not show lasix. DVT prophylaxis-Eliquis Full code ongoing need: Pericardial effusion-? Inflammatory-workup pending as well as respiratory status is not optimal yet. Quality Stroke Does the patient have a stroke diagnosis?: No VTE Prior VTE?: No VTE Risk Level:: Medical - moderate - high VTE Device Contraindication: Treatment Not Indicated VTE Drug Contraindication: N/A - Med Ordered
[2024-11-28] MEDS: cefTRIAXone sodium 1 GM VIAL IVPUSH (15:26)
[2024-11-28] MEDS: Colchicine 0.6 MG TABLET PO (15:31)
[2024-11-28] MEDS: Acetaminophen 325 MG TABLET 650 MG PO (16:20)
[2024-11-28] MEDS: Oseltamivir Phosphate 75 MG CAPSULE PO (16:21)
[2024-11-28 18:05] LABS: BF Shift QC OK NO; Man Diluent Bkgrd OK YES; RBC Pericardial Fluid 56290 MM*3; WBC Pericardial Fluid 4410 MM*3
[2024-11-28] MEDS: traZODone HCL 100 MG TABLET 200 MG PO (19:48)
[2024-11-28] MEDS: Melatonin 3 MG TABLET 6 MG PO (19:49)
[2024-11-28] MEDS: OLANZapine 10 MG TABLET PO (19:49)
[2024-11-28 19:55] LABS: Lymphs Pericardial Fl 73 %; Monocytes Pericard Fl 16 %; Neutrophils Pericardial Fluid 11 %
[2024-11-29 03:16] VITALS: BP 126/58; PULSE 82; RESP 18; TEMP 36.6; O2SAT 92
[2024-11-29] MEDS: Oseltamivir Phosphate 75 MG CAPSULE PO ×2 (04:27→14:27)
[2024-11-29] MEDS: Doxycycline Hyclate 100 MG in 0.9 % Sodium Chloride 250 ML 166.67 MG IV (04:27)
[2024-11-29 07:15] VITALS: BP 127/78; PULSE 74; RESP 16; TEMP 37.1; O2SAT 93
[2024-11-29 07:48] LABS: Total Protein Pericardial Flui 5.5; pH Pericardial Fluid 7.38
[2024-11-29 07:49] LABS: Amylase Pericardial Fluid 27; Glucose Pericardial Fluid 68
[2024-11-29] MEDS: Empagliflozin 10 MG TABLET PO (08:59)
[2024-11-29] MEDS: Atorvastatin Calcium 80 MG TABLET PO (08:59)
[2024-11-29] MEDS: Colchicine 0.6 MG TABLET PO (08:59)
[2024-11-29] MEDS: Metoprolol Succinate ER 25 MG TAB.ER.24H PO (08:59)
[2024-11-29] MEDS: Amiodarone HCL 200 MG TABLET PO (08:59)
[2024-11-29] MEDS: 0.9 % Sodium Chloride Flush 3 ML SYRINGE IVFLUSH ×2 (08:59→14:31)
[2024-11-29] MEDS: Sertraline HCL 50 MG TABLET PO (09:00)
--- NOTE | 2024-11-29 10:23 | MHC.CM.PN ---
Per ROUNDS discussion, Patient is not yet medically cleared for dc (Cultures pending); home/resume services is the goal and CM will continue to follow.
--- NOTE | 2024-11-29 10:47 | PM.PNCARD ---
Subjective Subjective Date of Service: 11/29/24 Principal diagnosis: Pericardial effusion, cardiomyopathy Interval history: Patient underwent pericardiocentesis yesterday with removal of 250 cc of serosanguineous fluid. Was started on colchicine yesterday. He feels better. No overnight arrhythmias with atrial fibrillation. Denies any other cardiac symptoms. No shortness of breath, orthopnea, PND. Review of Systems Constitutional: Reports no additional constitutional complaints Cardiovascular: Reports no additional cardiovascular complaints Gastrointestinal: Reports no additional gastrointestinal complaints Musculoskeletal: Reports no additional musculoskeletal complaints Reports system reviewed and no additional complaints, except as documented Physical Exam Vital Signs: Last Vital Signs Temp 98.7 F 11/29/24 07:15 Pulse 74 11/29/24 07:15 Resp 16 11/29/24 07:15 BP 127/78 11/29/24 07:15 Pulse Ox 93 11/29/24 07:15 O2 Del Method Room Air 11/29/24 07:15 O2 Flow Rate 2 11/28/24 14:45 BMI result Body Mass Index 34.0 Const General: cooperative, alert, awake and in distress mild and respiratory Nutritional Appearance: obese Orientation/consciousness: patient oriented x3 HEENT Head: Yes normocephalic and Yes atraumatic Neck Neck: Yes trachea midline, Yes supple and Yes no JVD Resp Effort & Inspection: normal respiratory effort Auscultation: no rales, no wheezes and breath sounds absent on th left (base) Cardio Jugular venous distension: no JVD Palpation: abnormal PMI displaced PMI Rate: regular rate Rhythm: regular rhythm Heart sounds: S1 normal heart sound present, S2 normal heart sound present, no click, no gallops and no murmurs GI Inspection: Yes obesity Auscultation: normal bowel sounds Skin General skin exam: no rashes or lesions noted Neuro General: patient oriented x3 and no focal motor deficits Extrem General: Yes no clubbing, cyanosis or edema Objective Labs and Meds 11/27/24 05:03 11/27/24 05:03 Lab results: Laboratory Results - last 24 hr 11/28/24 14:30 Pericard pH 7.38 Pericard WBC 4410 Pericard RBC 14662 Pericard Neutrophils 11 Pericard Lymphocytes 73 Pericard Monocytes 16 Pericard Total Protein 5.5 Pericardial Albumin 3.0 Pericardial Glucose 68 Pericardial Amylase 27 Progress Note: A&P Assessment and plan (1) Acute pericardial effusion: Status: Acute Assessment and Plan: Acute pericardial effusion in this elderly gentleman related to most likely viral infection and suggestive of pericardial inflammation. Status post drainage. Waiting results of the labs and pericardial fluid analysis. Continue colchicine for about 3 months. Approved by pharmacy at current dose. (2) Chronic systolic heart failure: Status: Acute Assessment and Plan: Chronic systolic heart failure with persistent severe LV systolic dysfunction. Status post Bi V ICD. ICD is working well. Continue current neurohormonal modulation with metoprolol. Add Entresto 24-26 mg b.i.d.. Continue Jardiance. Continue home dose of diuretic at this point time. Heart failure management was discussed again. (3) Paroxysmal atrial fibrillation: Status: Acute Assessment and Plan: Paroxysmal atrial fibrillation status post brief recurrences due to acute cardiac issues with pericardial effusion. No recurrent since then. Continue amiodarone has done well with rhythm control approach continue rhythm control approach. Resume Eliquis as soon as possible. Will sign of the case and follow-up as outpatient. Time Spent With Patient Time: Total time managing care of this patient today ____ minutes. Progress Note: Quality Stroke Does the patient have a stroke diagnosis?: No Procedures Date of Service Date of Service: 11/29/24
--- NOTE | 2024-11-29 11:00 | CA_ITS ---
Transthoracic Echocardiogram Patient (Last, First, Middle): Royal Glover, Gender: Male Date of : 1960 Age: 64 Procedure Date: 11/29/2024 Procedure Type: Transthoracic Echocardiogram Location: [facility] [place] Height: 167.64 cm Weight: 95.26 kg BSA: 2.04 m2 Heart Rate: bpm BP: 127 / 78 mmHg Loom Setter: TO Referring MD: Marcos Osuna MD Manager Sales And Marketing: Marcos Osuna MD Symptoms: Post pericardiocentesis Study Quality: Fair ECG Rhythm: Sinus Conclusions: - [id number] pericardial effusion Findings Pericardium/Pleural [id number] pericardial effusion, moderate posterior to the left ventricle. There was no evidence of tamponade Prior Study Comparison Changes noted compared to prior study dated: 11/26/2024. Overall pericardial effusion is mildly reduced Measurements 2D Linear Measurements LVOT Diam: 2.30 3.0+(-)1.3 cm Mitral Valve MV Pk E: 1.20 MV PK A: 0.43 MV Decel Time: 222.00 E/A: 2.80 E'Lateral: 6.74 E'Medial: 4.90 E/E' Med: 24.50 E/E' Lat: 17.80 PHT: 65.00 MVA PHT: 3.38 Decel Stanley: 5.43 LVOT LVOT Pk Noel: 0.98 LVOT Mn Noel: 0.75 LVOT VTI: 0.18 LVOT Pk Grad: 4.00 LVOT Mn Grad: 3.00 LVOT Diam: 2.30 LVOT Area: 4.15 Diastolic Function MV Pk E: 1.20 MV Pk A: 0.43 E/A: 2.80 E'Medial: 4.90 E/E' Med: 24.50 E' Laterial: 6.74 E/E' Lat: 17.80 Tricuspid Valve TR Pk Noel: 2.40 TR Pk Grad: 23.00 RA Press: 3.00 RVSP: 26.00 Updated in Other Vendor System with Status of Final Marcos Osuna MD electronically signed on 11/29/2024 2:54:38 PM with status of Final
[2024-11-29 12:00] VITALS: BP 125/75; PULSE 67; RESP 16; TEMP 36; O2SAT 95
[2024-11-29] MEDS: cefTRIAXone sodium 1 GM VIAL IVPUSH (14:27)
[2024-11-29 15:40] VITALS: BP 118/76; PULSE 74; RESP 17; TEMP 36.8; O2SAT 95
--- NOTE | 2024-11-29 17:17 | PM.DS ---
DS: Providers Provider Date of Service: 11/29/24 Date of admission: 11/27/24 12:31 Date of discharge: 11/29/24 Primary care physician: Gina Le MD Consults: 11/26/24 11:16 Consult to Cardiology Stat Consulting Provider: [facility] Reason for consultation: pericardial effusion Has provider been notified: Yes Attending physician on discharge: Mary Victor Discharging clinician: Mary Victor DS: Diagnosis Discharge Diagnosis (1) Acute pericardial effusion: Status: Acute (2) Chronic systolic heart failure: Status: Acute (3) Paroxysmal atrial fibrillation: Status: Acute DS: Summary Hospital Course Hospital Course: HPI:63 yo Hungarian speaking male, 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 Over the last 3-4 days, he has also developed subjective fevers at night as well as shortness of breath only associated with the cough. Has not actually checked his temperature. He denies any sore throat, congestion, abdominal pain, nausea, vomiting, diarrhea, palpitations, orthopnea, edema, dyspnea on exertion, weight gain, PND, or chest pain. In ED, vital signs stable, no leukocytosis. Renal function and electrolyte levels are normal. Troponin 27.4. BNP 246. Urinalysis not indicative of infection. Negative for COVID, flu, RSV. CT of the chest shows left lower lobe atelectasis versus pneumonia as well as cardiomegaly and a moderate pericardial effusion. There is a small left-sided pleural effusion. He had echo performed 11/10 which did not demonstrate any pericardial effusion. In the ED, has been given 1 dose 40 mg IV furosemide, and doxycycline. 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 Severely reduced LV ejection fraction 25-30% and Moderate circumferential pericardial effusion without obvious signs of tamponade : Patient was started on IV antibiotics, blood cultures sent, also started on Tamiflu for influenza, in addition patient was seen by Cardiology and recommended pericardiocentesis, he is status post pericardiocentesis on 11/29/24. Patient currently asymptomatic, repeat limited echo was done:Kyuyo-bu-tqjwbthx pericardial effusion . Pericardial food analysis reviewed: Likely inflammatory in the setting of pneumonia and viral infection. Blood culture negative. Pericardial fluid cultures(preliminary) are negative too. Pericardial fluid pathology pending which needs to be followed up out patiently with PCP. Discussed with the Cardiology in detail: Will restart Eliquis, also added colchicine for 3 months. in addition Chronic systolic heart failure with persistent severe LV systolic dysfunction. Status post Bi V ICD. ICD is working well. Continue current neurohormonal modulation with metoprolol. Add Entresto 24-26 mg b.i.d.. Continue Jardiance. he is not on diuretics at home ,added lasix 20 mg daily, Heart failure management was discussed. CHF education given-if gains weight 2 lb or more in a week-will need outpatient Lasix dosing assessment with PCP. Consider Follow-up with cardiology outpatient 6 months. plan: Follow-up final pericardial culture results as well as pathology results out patiently with PCP. Resume Eliquis, hold aspirin for 1 week. Complete Tamiflu 75 mg b.i.d.-7 more doses. Colchicine dose adjusted to 0.6 mg daily (for 3 months) considering patient is also on amiodarone. Entresto 24-26 mg b.i.d, lasix 20 mg po qd. CHF education given-if gains weight 2 lb or more in a week-will need outpatient Lasix dosing assessment with PCP. Cardiology may arrange their own appointment. Assessment and plan coordination time spent 40 minute patient understand and in agreement with the above plan, it was explained to the patient with the help of water reuse program manager in detail. Time Attestation Total time managing care of this patient today: 40 mintues. Discharge Coordination Time (in mins): 40 min Quality: Safe Use of Opioids Does Pt have an Active Cancer Diagnosis on the Problem List?: No Quality: Stroke Does the patient have a stroke diagnosis?: No Physical Exam Vital Signs: Vital Signs: Last Vital Signs Temp 98.2 F 11/29/24 15:40 Pulse 74 11/29/24 15:40 Resp 17 11/29/24 15:40 BP 118/76 11/29/24 15:40 Pulse Ox 95 11/29/24 15:40 O2 Del Method Room Air 11/29/24 15:40 O2 Flow Rate 2 11/28/24 14:45 BMI result Body Mass Index 34.0 Appearance: Alert.? Oriented X3.? cvs: rrr, [id number] , pericardiocentesis site seems clean, no discharge. res: air netry fair . abd: soft,nt, bs present. ext pulses present , no cyanosis . neuro: axo3 , nonfocal. DS: Data Data Completed and Pending Completed studies during hospitalization [Text1]: Procedures Taoist of Cardiac Rhythm, Single (05/24/24) Ultrasonography of Heart with Aorta, Transesophageal (03/19/24) Pending studies at discharge: Pending at discharge 11/28/24 10:11 Cytology [PTH] Routine Labs on day of discharge: Laboratory Results - last 24 hr 11/28/24 14:30 Pericard pH 7.38 Pericard WBC 4410 Pericard RBC 56307 Pericard Neutrophils 11 Pericard Lymphocytes 73 Pericard Monocytes 16 Pericard Total Protein 5.5 Pericardial Albumin 3.0 Pericardial Glucose 68 Pericardial Amylase 27 Preliminary micro results at discharge 11/28/24 14:30 Anaerobic Culture - Preliminary Pericardial Fluid No growth to date. Body Fluid Culture - Preliminary No growth to date. 11/26/24 12:00 Blood Culture - Preliminary Blood - Venous No growth after 48 hours. 11/26/24 12:01 Blood Culture - Preliminary Blood - Venous No growth after 48 hours. Imaging Chest x-ray: Radiologist's impression: ITS Impressions Chest X-Ray 11/26/24 08:38 IMPRESSION: Cardiomegaly versus pericardial effusion. Left-sided pleural effusion, small to moderate volume. Electronically signed by: Lucius Carpio MD 11/26/2024 08:49 AM EDT RP Chest CT 11/26/24 09:27 IMPRESSION: 1. Left lower lobe atelectasis versus pneumonia. 2. Cardiomegaly. Moderate pericardial effusion as described. 3. Small left pleural effusion. 4. Hepatomegaly and hepatic steatosis. echo: 11/26: Conclusions: - 1. Severely reduced LV ejection fraction 25-30% 2. Moderate circumferential pericardial effusion without obvious signs of tamponade Findings Left Ventricle Severely increased left ventricular cavity size. The left ventricular systolic function is severely decreased. The visually estimated ejection fraction is between 25-30%. There is severe global hypokinesis. Spectral Doppler is indicative of an impaired relaxation filling pattern. Pericardium/Pleural There is a moderate circumferential pericardial effusion. The inferior vena cava is normal in size with preserved respiratory variability. No discernable variation of the mitral valve Doppler velocities with respiration. echo: 11/29/24: Conclusions: - Fyode-iy-mhpzfzpw pericardial effusion Findings Pericardium/Pleural Kupnt-fo-gtwemyog pericardial effusion, moderate posterior to the left ventricle. There was no evidence of tamponade Prior Study Comparison Changes noted compared to prior study dated: 11/26/2024. Overall pericardial effusion is mildly reduced Discharge Plan Discharge Anticipated Discharge Date/Time: 11/29/24 16:47 Patient Disposition: Home, Self-Care Discharge Diagnosis: Pericardial effusion, pneumonia, influenza B. Referrals: Gina Davey MD [Primary Care Provider] - 1 Week Discharge Medications: New doxycycline monohydrate 100 mg Capsule 100 mg PO Q12H Qty: 12 0RF oseltamivir [Tamiflu] 75 mg Capsule 75 mg PO Q12H Qty: 7 0RF cefuroxime axetil 500 mg Tablet 500 mg PO Q12H Qty: 12 0RF colchicine [Colcrys] 0.6 mg Tablet 0.6 mg PO DAILY Qty: 90 0RF Continued Eliquis 5 mg tablet 5 mg PO BID Qty: 180 0RF atorvastatin 80 mg tablet 80 mg PO DAILY Qty: 90 3RF trazodone 100 mg tablet 200 mg PO BEDTIME Jardiance 10 mg Tablet 10 mg PO DAILY Qty: 30 0RF olanzapine 10 mg tablet 10 mg PO BEDTIME amiodarone 200 mg tablet 200 mg PO BID aspirin 81 mg tablet,delayed release (DR/EC) 81 mg PO DAILY melatonin 5 mg Tablet 5 mg PO BEDTIME metoprolol succinate 25 mg tablet extended release 24 hr 25 mg PO DAILY (DME) blood-glucose meter [FortaTrust Ultra2 Meter] Misc See Rx Instructions .Route Qty: 1 0RF Rx Instructions: As directed (DME) OneTouch Ultra Test Strip See Rx Instructions .Route Qty: 100 2RF Rx Instructions: Use 1 test strip once a day (DME) lancets [OneTouch UltraSoft 2 Lancet] 30 gauge misc See Rx Instructions .Route Qty: 100 2RF Rx Instructions: Use 1 lancet once a day (DME) lancets [FreeStyle Lancets] 28 gauge misc See Rx Instructions .Route Qty: 100 3RF Rx Instructions: Use 1 lancet once a day sertraline 50 mg tablet 50 mg PO DAILY Discharge Orders: Discharge Order (Routine); Ordered 11/29/24 Ordered By: Mary Victor Diet: Advance to usual diet Activity on Discharge: As tolerated Stand Alone Forms: Patient Portal Discharge page Print Language: Hungarian Other Ambulatory Orders: Basic Metabolic Panel (Routine) Timeframe: 1 Week Facility: [facility] - Location: Laboratory Ordered By: Mary Victor Care Plan Goals: 63 yo Hungarian speaking male, 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, with a pmhx sgnificant for congestive heart failure with reduced ejection fraction of 10-15%, persistent atrial fibrillation/flutter on Eliquis, BPH, mood disorder, mixed hyperlipidemia, CAD status post stent to be observed for moderate pericardial effusion: Patient was admitted for possible pericardial effusion, chest CT cardiomegaly and moderate pericardial effusion and possible left lower lobe pneumonia, also viral panel is positive for influenza B: Patient was started on IV antibiotics, blood cultures sent, also started on Tamiflu for influenza, in addition patient was seen by Cardiology and recommended pericardiocentesis, he is status post pericardiocentesis on 11/29/24. Patient currently asymptomatic, repeat limited echo was done:- Vndok-sz-cxawdbbx pericardial effusion . Pericardial food analysis reviewed: Likely inflammatory in the setting of pneumonia and viral infection. Blood culture negative. Pericardial fluid cultures(preliminary) are negative too. Pericardial fluid pathology pending which needs to be followed up out patiently with PCP. Discussed with the Cardiology in detail: Will restart Eliquis, also added colchicine for 3 months. in addition Chronic systolic heart failure with persistent severe LV systolic dysfunction. Status post Bi V ICD. ICD is working well. Continue current neurohormonal modulation with metoprolol. Add Entresto 24-26 mg b.i.d.. Continue Jardiance. he is not on diuretics at home ,added lasix 20 mg daily, Heart failure management was discussed. CHF education given-if gains weight 2 lb or more in a week-will need outpatient Lasix dosing assessment with PCP. Consider Follow-up with cardiology outpatient 6 months Health Concerns: Follow-up final pericardial culture results as well as pathology results out patiently with PCP. Resume Eliquis, hold aspirin for 1 week. Complete Tamiflu 75 mg b.i.d.-7 more doses. Colchicine dose adjusted to 0.6 mg daily (for 3 months) considering patient is also on amiodarone. Entresto 24-26 mg b.i.d, lasix 20 mg po qd. CHF education given-if gains weight 2 lb or more in a week-will need outpatient Lasix dosing assessment with PCP. Cardiology may arrange their own appointment. Plan of Treatment: as above . Assessment: as above. Patient Instructions: Viral Pneumonia (DC), Pericardial Effusion (DC), Pneumonia (DC)
[2024-11-29] MEDS: cefuroxime axetiL 500 MG TABLET PO (17:57)
[2024-12-03 03:59] LABS: Legionella Ag Urine Not Detected (Not Detected)
[2024-12-04 23:04] LABS: Strep Pneumo Ag urine Not Detected (Not Detected)
== END 2024-11-29 18:27 | disposition home or self-care (01) | DRG 865 ==
LOC: HO.ED 11:48 → HO.EDOVER 12:33 → HO.IMC 11-27 15:40
PROVIDERS: Student in an Organized Health Care Education/Training Program; Admitting Provider Physician Assistant; Emergency Provider Emergency Medicine; PCP Internal Medicine; Visit Provider Internal Medicine
PROC: 0W9D3ZZ Drainage of Pericardial Cavity, Percutaneous Approach (ICD-10-PCS; principal; 2024-11-28 14:00)
DX: J10.89 Influenza due to other identified influenza virus with other manifestations (principal); J10.00 Influenza due to other identified influenza virus with unspecified type of pneumonia; I30.1 Infective pericarditis; J91.8 Pleural effusion in other conditions classified elsewhere; I48.19 Other persistent atrial fibrillation; I50.22 Chronic systolic (congestive) heart failure; N40.0 Benign prostatic hyperplasia without lower urinary tract symptoms; F39 Unspecified mood [affective] disorder; I11.0 Hypertensive heart disease with heart failure; E78.5 Hyperlipidemia, unspecified; I25.10 Atherosclerotic heart disease of native coronary artery without angina pectoris; Z95.5 Presence of coronary angioplasty implant and graft; Z95.810 Presence of automatic (implantable) cardiac defibrillator; Z87.891 Personal history of nicotine dependence; Z79.01 Long term (current) use of anticoagulants; Z79.82 Long term (current) use of aspirin; Z79.899 Other long term (current) drug therapy
CPT/HCPCS: 0241U; 33019; 36415; 71046; 71250; 80048; 80053; 81001; 82042; 82150; 82248; 82945; 83690; 83735; 83880; 83986; 84157; 84484; 85025; 85610; 85730; 86850; 86900; 86901; 87040; 87070; 87073; 87205; 87449; 87633; 87640; 87641; 87899; 88112; 88305; 89051; 93005; 93308; 99285; C1729; J0696; J1271; J1940; J3010; Q9957

== ENCOUNTER → 2024-11-26 08:38 | Outpatient (BNV) | payer OTHER, SELFPAY | PROVIDERS: Emergency Provider Emergency Medicine; PCP Internal Medicine; Visit Provider Radiology Diagnostic Radiology | DX: I31.39 Other pericardial effusion (noninflammatory) (principal); I51.7 Cardiomegaly; J90 Pleural effusion, not elsewhere classified; R16.0 Hepatomegaly, not elsewhere classified | CPT/HCPCS: 71046; 71250 ==

== ENCOUNTER → 2024-11-26 11:20 | Outpatient (BNV) | payer OTHER, SELFPAY | PROVIDERS: Admitting Provider Physician Assistant; Emergency Provider Emergency Medicine; PCP Internal Medicine; Visit Provider Internal Medicine Cardiovascular Disease | DX: I50.20 Unspecified systolic (congestive) heart failure (principal); I31.39 Other pericardial effusion (noninflammatory); I48.91 Unspecified atrial fibrillation; I44.7 Left bundle-branch block, unspecified; Z95.0 Presence of cardiac pacemaker | CPT/HCPCS: 93010; 93308; 93321 ==

== ENCOUNTER → 2024-11-26 12:18 | Outpatient (BNV) | payer OTHER, SELFPAY | PROVIDERS: Admitting Provider Physician Assistant; Emergency Provider Emergency Medicine; PCP Internal Medicine; Visit Provider Internal Medicine Cardiovascular Disease | DX: I30.9 Acute pericarditis, unspecified (principal) | CPT/HCPCS: 99222 ==

== ENCOUNTER → 2024-11-26 12:18 | Outpatient (BNV) | payer OTHER, SELFPAY | PROVIDERS: Admitting Provider Physician Assistant; Emergency Provider Emergency Medicine; PCP Internal Medicine; Visit Provider Physician Assistant | DX: I30.9 Acute pericarditis, unspecified (principal); I50.22 Chronic systolic (congestive) heart failure; I48.0 Paroxysmal atrial fibrillation | CPT/HCPCS: 99223; 99232; 99239 ==

== ENCOUNTER 2024-11-27 12:31 | Outpatient (BNV) | payer OTHER, SELFPAY | END 2024-11-29 11:00 | PROVIDERS: Admitting Provider Physician Assistant; Emergency Provider Emergency Medicine; PCP Internal Medicine; Visit Provider Internal Medicine Cardiovascular Disease | DX: I31.39 Other pericardial effusion (noninflammatory) (principal) | CPT/HCPCS: 93308 ==

== ENCOUNTER 2024-11-27 12:31 | Outpatient (BNV) | payer OTHER, SELFPAY | END 2024-11-28 14:14 | PROVIDERS: Admitting Provider Physician Assistant; Emergency Provider Emergency Medicine; PCP Internal Medicine; Visit Provider Student in an Organized Health Care Education/Training Program | DX: I30.9 Acute pericarditis, unspecified (principal) | CPT/HCPCS: 33016 ==

== ENCOUNTER 2024-12-13 12:27 | Outpatient (AMB) | payer OTHER, SELFPAY ==
--- NOTE | 2024-12-13 12:39 | A.OFFPC_ITS ---
Vital Signs 3 12/13/24 12:40 Height 5 ft 6 in Weight 210 lb BMI 33.9 BP 140/72 H Blood Pressure Location Lt brachial Position Sitting Pulse 68 Pulse Source Pulse Oximeter Temp 97.3 F Temp Source Temporal Artery Scan Pulse Oximetry (%) 96 Oxygen Delivery Method Room Air Intake Visit Reasons: TCM 11/29 Intake Note: Patient is here for hospital discharge and TCM follow up. [place] [facility] [place] Pt requesting for podiatry referral for fungi on his foot. Marketing Segment Manager Required: Yes Marketing Segment Manager Language: Spray Machine Tender Name: Kartik ([id number]) Information Interpreted: non-clinical & clinical Drywall Applicator: Not Required per policy Accompanied by: Self / Same As Patient Allergies No Known Allergies [No Known Allergies*] Allergy (Verified 12/13/24 12:40) Tobacco use date assessed: 12/13/24 Fall risk assessment: No Falls in past year Last assessed Fall Risk: 12/13/24 Dental Screening Dental Screen Date: 08/22/24 HPI TCM 2 TCM Information0 Date of Discharge 11/29/24 Discharged From [facility] Interactive Contact Date (Reference documentation from this date) 12/03/24 HPI Comments 2 History of Present Illness0 Details 64 y/o Male patient who presents to the clinic for TCM. Pmhx sgnificant for congestive heart failure with reduced ejection fraction of 10-15%, persistent atrial fibrillation/flutter on Eliquis, BPH, mood disorder, mixed hyperlipidemia, and CAD status post stent. [place] [facility] [place] for possible pericardial effusion, chest CT cardiomegaly and moderate pericardial effusion and possible left lower lobe pneumonia, also viral panel is positive for influenza B, intial echo:1. Severely reduced LV ejection fraction 25-30% and Moderate circumferential pericardial effusion without obvious signs of Tamponade. S/P Jen-cardiocentesis on 11/29/24. Repeat limited echo was done that showed Kdmbl-bx-dvmldsia pericardial effusion. Blood culture were negative. Pericardial fluid cultures were negative too. Pericardial fluid pathology negative for Specific Organism. Cardiology Added Entresto 24-26 mg b.i.d and Lasix 20 mg daily. Eliquis was re-started and Colchicine was added for 3 months. Today Pt states that he did not receive any medications from Hospital and it not clear if he is actually taking them. Advised Pt to grape picker medications from his Pharmacy and start taking them as prescribed. He does have Cardiology follow up appointment on 12/20/24. Pt c/o Rash that is dry and itchy on dorsal right hand. 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 pylori) GERD (gastroesophageal reflux disease) Breast pain Dyslipidemia Essential hypertension Obese Abdominal mass Insomnia Surgical History H/O abdominal surgery History of colonoscopy Family History Father No problems noted. Mother Kidney failure Social History Household Members: None Housing: Apartment Do you presently have visiting nurse or other home services: No Alcohol intake: former Patient Tobacco Use Status: Former Tobacco user Tobacco use type: Cigarette e-Cigarette/Vaping Use: Never Used Second Hand Smoke Exposure: No service: No Current occupational status: retired Cognitive needs: No Hearing needs: No Vision needs: No Questionnaire Thrive Questionnaire Date Thrive assessed: 11/27/24 MIGUELINA-7 AMB Questionnaire MIGUELINA-7 Date MIGUELINA - 7 assessed: 08/22/24 Source: Developed by Drs. Elias Schilling, Barbie Teague, Flavio Calvin and colleagues, with an educational elroy from [employer]. Review of Systems Const All systems reviewed & are unremarkable except as noted in HPI and below Physical exam (Primary Care) Vital Signs: Last Vital Signs Temp 97.3 F 12/13/24 12:40 Pulse 68 12/13/24 12:40 BP 140/72 H 12/13/24 12:40 Pulse Ox 96 12/13/24 12:40 Oxygen Delivery Method Room Air 12/13/24 12:40 BMI result Body Mass Index 33.9 Tobacco/Smoking Status: Tobacco use Status Tobacco use date assessed 12/13/24 12/13/24 12:50 Patient Tobacco Use Status Former Tobacco user 12/13/24 12:50 Tobacco use type Cigarette 12/13/24 12:50 e-Cigarette/Vaping Use Never Used 12/13/24 12:50 Thrive Assessment: Date of Thrive Assessment Date Thrive assessed 11/27/24 12/13/24 12:50 Const General: no acute distress Nutritional Appearance: obese Orientation/consciousness: patient oriented x3 Resp Effort & Inspection: normal respiratory effort and able to speak in complete sentences Auscultation: clear to auscultation bilaterally, no crackles, no rales, no rhonchi and no wheezes Cardio Heart sounds: S1 normal heart sound present and S2 normal heart sound present Skin General skin exam: dry skin Neuro General: patient oriented x3, gait normal and moves all extremities Extrem Hand/finger images: 2 1. Dry peeling off skin Psych Speech and movement: Normal speech and movement present Coding Level of Care Code TCM Mod MDM <= 14 Days Diagnoses Acute pericardial effusion I30.9 Rash and nonspecific skin eruption R21 Time Spent (min) 20 Assessment & Plan Assessment & Plan (1) Acute pericardial effusion: Code(s): I30.9 - Acute pericarditis, unspecified Category: Medical Plan: Managed by Cardiology Advised Pt to take his medications as prescribed. Appointment with cardiology 12/20 (2) Rash and nonspecific skin eruption: Code(s): R21 - Rash and other nonspecific skin eruption Category: Medical Plan: DDx's: Eczema vs Dermatitis Ordered Hydrocortisone Cream. Medications: New 2 hydrocortisone 1% 1 appl topical BID PRN 28.4 grams 0RF skin irritation R21 - Rash and other nonspecific skin eruption
[2024-12-13 12:40] VITALS: BP 140/72; PULSE 68; TEMP 36.3; O2SAT 96; BMI 33.9
--- OUTSIDE RECORDS SUMMARY | 2024-12-13 12:59 | XMS_ITS | Clinical Summary ---
Author Organization [facility] ity Address [address] [place] [id number] Care Team Providers Care Cloth Framer Name Role Phone Gina Le MD Primary Care Provider [phone] Social History Tobacco Use Types Packs/Day Years [...] age to complete this topic Care Teams Cloth Framer Relationship Specialty Start Date End Date Gina Le MD [address] [place] [address] , [address] [facility]ician [facility] D/B/A: [facility] CHADD Guadarrama PCP - General 10/04/22
== END 2024-12-13 13:33 | disposition home or self-care (01) ==
LOC: HO.HMCH 12:34
PROVIDERS: PCP Internal Medicine; Visit Provider Nurse Practitioner Family
DX: I30.9 Acute pericarditis, unspecified (principal); R21 Rash and other nonspecific skin eruption

== ENCOUNTER → 2024-12-13 12:27 | Outpatient (BNVA) | payer OTHER, SELFPAY | PROVIDERS: PCP Internal Medicine; Visit Provider Nurse Practitioner Family | DX: I30.9 Acute pericarditis, unspecified (principal); R21 Rash and other nonspecific skin eruption; I50.9 Heart failure, unspecified; I48.19 Other persistent atrial fibrillation; I48.92 Unspecified atrial flutter; E78.2 Mixed hyperlipidemia; Z95.9 Presence of cardiac and vascular implant and graft, unspecified; Z87.891 Personal history of nicotine dependence; Z79.01 Long term (current) use of anticoagulants | CPT/HCPCS: 99495 ==

== ENCOUNTER 2024-12-20 12:32 | Outpatient (AMB) | payer OTHER, SELFPAY ==
--- OUTSIDE RECORDS SUMMARY | 2024-12-20 12:36 | XMS_ITS | Clinical Summary ---
Author Organization [facility] Address [id number] [place] [id number] Care Team Providers Care Hydrographic Surveyor Name Role Phone Gina Le MD Primary Care Provider [phone] Social History Tobacco Use Types Packs/Day Years [...] age to complete this topic Care Teams Hydrographic Surveyor Relationship Specialty Start Date End Date Gina Le MD [address] [place] [address] , [address] [facility]ician Associ D/B/A: [facility] CHADD Guadarrama PCP - General 10/04/22
--- NOTE | 2024-12-20 13:32 | A.OFFVIS_ITS ---
Vital Signs 12/20/24 13:33 Height 5 ft 6 in Weight 217 lb 6.012 oz BMI 35.1 BP 110/70 Blood Pressure Location Lt brachial Position Sitting Pulse 68 Pulse Source Pulse Oximeter Intake Visit Reasons: f/p C- DC Intake Note: f/up-[facility] [place] International Accountant Required: Yes International Accountant Language: First Assistant Name: [id number] Accompanied by: Self / Same As Patient Allergies No Known Allergies [No Known Allergies*] Allergy (Verified 12/13/24 12:40) Medication List - Last Reconciled 12/20/24 by Kris Miner NP amiodarone 200 mg PO BID apixaban (Eliquis) 5 mg PO BID aspirin 81 mg PO DAILY atorvastatin 80 mg PO DAILY blood sugar diagnostic (Jawfish GamesTouch Ultra Test strips) Use 1 test strip once a day blood-glucose meter (Jawfish GamesTouch Ultra2 Meter) As directed colchicine (Colcrys) 0.6 mg PO DAILY empagliflozin (Jardiance) 10 mg PO DAILY hydrocortisone 1% 1 appl topical BID PRN lancets (FreeStyle Lancets) Use 1 lancet once a day lancets (OneTouch UltraSoft 2 Lancet) Use 1 lancet once a day melatonin 5 mg PO BEDTIME metoprolol succinate ER 25 mg PO DAILY olanzapine 10 mg PO BEDTIME sertraline 50 mg PO DAILY trazodone 200 mg PO BEDTIME HPI Comments Details: This is a 64-year-old Mauritian-speaking male patient presenting for hospital discharge follow-up. A virtual medical assistant prn was utilized throughout the visit. Patient has past medical history significant for hypertension, hyperlipidemia, diabetes, coronary artery disease status post PCI, persistent AFib/a flutter status post ablation, and HFrEF with LBBB status post Bi V ICD placement with Dr. Canales. The patient was recently hospitalized for moderate pericardial effusion in the setting of pneumonia and influenza. Patient was treated with IV antibiotics and underwent pericardiocentesis, with pericardial fluid cultures returning negative. He was discharged on colchicine however today's visit, he was unsure whether it was still taking it as he does not recognize the medication by name. This was confirmed with the pharmacy which verified that the prescription has been picked up at discharge. Today, the patient reports feeling well overall and denies any cardiac symptoms, including exertional chest pain, shortness of breath, palpitations, dizziness, fatigue, orthopnea, PND, leg edema, presyncope, or syncope. Patient though does not remember his medication names reports that is adherent to all his prescribed medications. 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 pylori) GERD (gastroesophageal reflux disease) Breast pain Dyslipidemia Essential hypertension Obese Abdominal mass Insomnia Surgical History H/O abdominal surgery History of colonoscopy Family History Father No problems noted. Mother Kidney failure Social History Household Members: None Housing: Apartment Do you presently have visiting nurse or other home services: No Alcohol intake: former Patient Tobacco Use Status: Former Tobacco user Tobacco use type: Cigarette e-Cigarette/Vaping Use: Never Used Second Hand Smoke Exposure: No service: No Current occupational status: retired Cognitive needs: No Hearing needs: No Vision needs: No Review of Systems Const Denies chills, Denies fatigue, Denies fever(s), Denies frequent falls, Denies weakness, Denies weight gain and Denies weight loss ENT Denies dizziness Card Denies chest pain, Denies leg edema, Denies lightheadedness, Denies palpitations, Denies dyspnea and Denies dyspnea on exertion Resp Denies cough, Denies dyspnea and Denies dyspnea on exertion GI Denies hematochezia Musc Denies abnormal gait, Denies muscle weakness, Denies numbness, Denies radiating pain into limb and Denies tingling Neuro Denies abnormal gait, Denies dizziness, Denies frequent falls, Denies numbness, Denies tingling and Denies weakness Endo Denies fatigue and Denies palpitations Physical Exam Vital Signs: Last Vital Signs Pulse 68 12/20/24 13:33 BP 110/70 12/20/24 13:33 BMI result Body Mass Index 35.1 Const General: cooperative, healthy appearing, comfortable and no acute distress Orientation/consciousness: patient oriented x3 HEENT Head: Yes normal to inspection Neck Neck: Yes normal visual inspection, Yes trachea midline and Yes supple Chest Chest palpation & inspection: normal inspection of the chest Resp Effort & Inspection: normal respiratory effort Auscultation: clear to auscultation bilaterally, no crackles, no rales, no rhonchi and no wheezes Cardio Jugular venous distension: no JVD Palpation: normal PMI Rate: regular rate Rhythm: regular rhythm Heart sounds: S1 normal heart sound present, S2 normal heart sound present, no click, no gallops, no murmurs and no rubs Peripheral pulses: Peripheral pulses 2+ throughout GI Inspection: Yes normal to inspection Palpation (GI): Soft to palpation Auscultation: normal bowel sounds Skin General skin exam: no rashes or lesions noted Neuro General: patient oriented x3 Extrem General: Yes normal to inspection, No no pedal edema and No calf tenderness Psych Appearance: grossly normal Mental Status: mental status grossly normal Speech and movement: Normal speech and movement present Office Procedures EKG Details: EKG today showed atrial sensed ventricular paced rhythm, rate 68 beats per minute, nonspecific ST/T wave, [place], [place]. [id number], Complete Assessment & Plan Assessment & Plan (1) NICM (nonischemic cardiomyopathy): Code(s): I42.8 - Other cardiomyopathies Category: Medical Plan: 11/26/2024-limited echo study showed severely reduced LV EF between 25-30%, with moderate circum pharyngeal pericardial effusion without obvious signs of tamponade. Status post Bi V ICD placement at [facility]. We do not have any device information at this time. We will request this from [facility] for remote monitoring. Status post pericardiocentesis. Pericardial fluid analysis came back negative. Continue colchicine for the 3 month time. Clinically euvolemic and stable. Discussed in detail about signs and symptoms to look for with heart failure and when to seek medical care. Continue the current regimen including metoprolol and Jardiance. We will start patient on Entresto. Advised low-salt diet, fluid restriction at 1.5-2 L, and daily weight monitoring. We will also repeat an echo in 3 months. (2) Paroxysmal atrial fibrillation: Code(s): I48.0 - Paroxysmal atrial fibrillation Category: Medical Plan: Patient is status post cardioversion and ablation. Patient had some recurrent AFib during this hospitalization. Continue with Eliquis for full anticoagulation therapy continue with amiodarone and metoprolol for rhythm and rate control approach. No reports of falls or signs of bleeding. We will monitor labs periodically. (3) Dyslipidemia: Code(s): E78.5 - Hyperlipidemia, unspecified Category: Medical Plan: No recent LDL. Patient states he has lipid panel ordered through PCP. Continue high-dose statin therapy. Ideally, LDL goal for patient less than 70. (4) Essential hypertension: Code(s): I10 - Essential (primary) hypertension Category: Medical Plan: Blood pressure today is well-controlled. Continue with the current regimen. Advised patient to monitor blood pressures at home. Ideally, blood pressure goal less than 130/80. (5) Hospital discharge follow-up: Code(s): Z09 - Encounter for follow-up examination after completed treatment for condi tions other than malignant neoplasm Category: Medical Plan: As above. Advised heart healthy diet, regular exercise, losing weight, med compliance, and management of vascular risk factors. We will follow up with the patient and full month. In the interim, patient will call the office with any concerns or change in symptoms. Advised patient to seek ER care in case of exertional chest pain not resolved with rest. This note was generated using voice recognition software. While every effort has been made to ensure accuracy and proper music education adjunct professor, there may be occasional errors that could affect the content or meaning of the described symptoms. Orders: Orders CA echo transthoracic complete 3 Months I30.9 - Acute pericarditis, unspecified AMB EKG-In Office Today I48.0 - Paroxysmal atrial fibrillation Medications: New sacubitril-valsartan 24-26 mg 1 tab PO BID 90 tabs 3RF Refilled apixaban (Eliquis) 5 mg PO BID 180 tabs 0RF Coding Level of Care Code Est Pt Level 4 (29997) Complex EM visit Add On G2211 Diagnoses NICM (nonischemic cardiomyopathy) I42.8 Paroxysmal atrial fibrillation I48.0 Dyslipidemia E78.5 Essential hypertension I10 Hospital discharge follow-up Z09 CPT Codes EKG - CPT: 12841-[id number], Complete ([id number]) Time Spent (min) 34 Comment Time spent in reviewing the chart, test results, assessment, counseling and documentation.
[2024-12-20 13:33] VITALS: BP 110/70; PULSE 68; BMI 35.1
== END 2024-12-20 14:03 | disposition home or self-care (01) ==
LOC: HO.HCS 12:33
PROVIDERS: PCP Internal Medicine
DX: I42.8 Other cardiomyopathies (principal); I48.0 Paroxysmal atrial fibrillation; E78.5 Hyperlipidemia, unspecified; I10 Essential (primary) hypertension; Z09 Encounter for follow-up examination after completed treatment for conditions other than malignant neoplasm
CPT/HCPCS: 93010; 99214; G2211

== ENCOUNTER → 2024-12-20 12:32 | Outpatient (BNVA) | payer OTHER, SELFPAY | PROVIDERS: PCP Internal Medicine | DX: I10 Essential (primary) hypertension (principal); I42.8 Other cardiomyopathies; I25.10 Atherosclerotic heart disease of native coronary artery without angina pectoris; I48.0 Paroxysmal atrial fibrillation; I30.9 Acute pericarditis, unspecified; E78.5 Hyperlipidemia, unspecified; Z09 Encounter for follow-up examination after completed treatment for conditions other than malignant neoplasm; Z87.891 Personal history of nicotine dependence | CPT/HCPCS: 93005; 99212 ==

== ENCOUNTER → 2025-01-02 23:59 | Outpatient (BNV) | payer OTHER, SELFPAY ==
--- NOTE | 2025-01-24 09:51 | A.OFFVIS_ITS ---
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 pylori) GERD (gastroesophageal reflux disease) Breast pain Dyslipidemia Essential hypertension Obese Abdominal mass Insomnia Surgical History H/O abdominal surgery History of colonoscopy Family History Father No problems noted. Mother Kidney failure Social History Household Members: None Housing: Apartment Do you presently have visiting nurse or other home services: No Alcohol intake: former Patient Tobacco Use Status: Former Tobacco user Tobacco use type: Cigarette e-Cigarette/Vaping Use: Never Used Second Hand Smoke Exposure: No service: No Current occupational status: retired Cognitive needs: No Hearing needs: No Vision needs: No Office Procedures Cardiac Device Check Cardiac Device Check Details: APARTMENT COMMUNITY MANAGER-D Good battery CLAIMS DIRECTOR 95.8% Episode of Afib 1 hr in duration recorded. [id number] Cardiac Device Interrogation, pacemaker or defibrillator Procedure code (CPT) selection complete Assessment & Plan Assessment & Plan (1) ICD (implantable cardioverter-defibrillator) in place: Code(s): Z95.810 - Presence of automatic (implantable) cardiac defibrillator Category: Medical Plan Coding Level of Care Code Procedure Only Diagnoses ICD (implantable cardioverter-defibrillator) in place Z95.810 CPT Codes Cardiac Device Check - Cardiac Device 14: [id number] Cardiac Device Interrogation, pacemaker or defibrillator ([id number])
== END ==
PROVIDERS: PCP Internal Medicine; Visit Provider Internal Medicine Cardiovascular Disease
DX: I48.91 Unspecified atrial fibrillation (principal); Z95.810 Presence of automatic (implantable) cardiac defibrillator
CPT/HCPCS: 93295

== ENCOUNTER → 2025-01-02 23:59 | Outpatient (BNV) | payer OTHER, SELFPAY ==
--- NOTE | 2025-01-24 10:04 | MHC.OFFVIS ---
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 pylori) GERD (gastroesophageal reflux disease) Breast pain Dyslipidemia Essential hypertension Obese Abdominal mass Insomnia Surgical History H/O abdominal surgery History of colonoscopy Family History Father No problems noted. Mother Kidney failure Social History Household Members: None Housing: Apartment Do you presently have visiting nurse or other home services: No Alcohol intake: former Patient Tobacco Use Status: Former Tobacco user Tobacco use type: Cigarette e-Cigarette/Vaping Use: Never Used Second Hand Smoke Exposure: No service: No Current occupational status: retired Cognitive needs: No Hearing needs: No Vision needs: No Office Procedures Cardiac Device Check Cardiac Device Check Details: HF monitoring Stable thoracic impedance. [id number] Cardiac Device Interrogation, cardio physiologic monitor Procedure code (CPT) selection complete Assessment & Plan Assessment & Plan (1) ICD (implantable cardioverter-defibrillator) in place: Code(s): Z95.810 - Presence of automatic (implantable) cardiac defibrillator Category: Medical Plan Coding Level of Care Code Procedure Only Diagnoses ICD (implantable cardioverter-defibrillator) in place Z95.810 CPT Codes Cardiac Device Check - Cardiac Device 15: [id number] Cardiac Device Interrogation, cardio physiologic monitor ([id number])
== END ==
PROVIDERS: PCP Internal Medicine; Visit Provider Internal Medicine Cardiovascular Disease
DX: Z45.02 Encounter for adjustment and management of automatic implantable cardiac defibrillator (principal)
CPT/HCPCS: 93297

== ENCOUNTER → 2025-02-01 23:59 | Outpatient (BNV) | payer OTHER, SELFPAY ==
--- NOTE | 2025-03-11 16:34 | MHC.OFFVIS ---
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 pylori) GERD (gastroesophageal reflux disease) Breast pain Dyslipidemia Essential hypertension Obese Abdominal mass Insomnia Surgical History H/O abdominal surgery History of colonoscopy Family History Father No problems noted. Mother Kidney failure Social History Household Members: None Housing: Apartment Do you presently have visiting nurse or other home services: No Alcohol intake: former Patient Tobacco Use Status: Former Tobacco user Tobacco use type: Cigarette e-Cigarette/Vaping Use: Never Used Second Hand Smoke Exposure: No service: No Current occupational status: retired Cognitive needs: No Hearing needs: No Vision needs: No Office Procedures Cardiac Device Check Cardiac Device Check Details: HF monitoring 91 % V paced Stable thoracic impedance. [id number] Cardiac Device Interrogation, cardio physiologic monitor Procedure code (CPT) selection complete Assessment & Plan Assessment & Plan (1) Chronic systolic heart failure: Code(s): I50.22 - Chronic systolic (congestive) heart failure Category: Medical Plan Coding Level of Care Code Procedure Only Diagnoses Chronic systolic heart failure I50.22 CPT Codes Cardiac Device Check - Cardiac Device 15: [id number] Cardiac Device Interrogation, cardio physiologic monitor ([id number])
== END ==
PROVIDERS: PCP Internal Medicine; Visit Provider Internal Medicine Cardiovascular Disease
DX: I50.22 Chronic systolic (congestive) heart failure (principal); Z95.810 Presence of automatic (implantable) cardiac defibrillator
CPT/HCPCS: 93297

== ENCOUNTER → 2025-03-03 23:59 | Outpatient (BNV) | payer OTHER, SELFPAY ==
--- NOTE | 2025-03-25 12:00 | MHC.OFFVIS ---
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 pylori) GERD (gastroesophageal reflux disease) Breast pain Dyslipidemia Essential hypertension Obese Abdominal mass Insomnia Surgical History H/O abdominal surgery History of colonoscopy Family History Father No problems noted. Mother Kidney failure Social History Household Members: None Housing: Apartment Do you presently have visiting nurse or other home services: No Alcohol intake: former Patient Tobacco Use Status: Former Tobacco user Tobacco use type: Cigarette e-Cigarette/Vaping Use: Never Used Second Hand Smoke Exposure: No service: No Current occupational status: retired Cognitive needs: No Hearing needs: No Vision needs: No Office Procedures Cardiac Device Check Cardiac Device Check Details: HF monitoring Stable thoracic impedance. V paced 94%. [id number] Cardiac Device Interrogation, cardio physiologic monitor Procedure code (CPT) selection complete Assessment & Plan Assessment & Plan (1) NICM (nonischemic cardiomyopathy): Code(s): I42.8 - Other cardiomyopathies Category: Medical Plan Coding Level of Care Code Procedure Only Diagnoses NICM (nonischemic cardiomyopathy) I42.8 CPT Codes Cardiac Device Check - Cardiac Device 15: [id number] Cardiac Device Interrogation, cardio physiologic monitor ([id number])
== END ==
PROVIDERS: PCP Internal Medicine; Visit Provider Internal Medicine Cardiovascular Disease
DX: I42.8 Other cardiomyopathies (principal); Z95.810 Presence of automatic (implantable) cardiac defibrillator
CPT/HCPCS: 93297

== ENCOUNTER → 2025-03-10 09:38 | Outpatient (REF) | payer OTHER, SELFPAY ==
--- NOTE | 2025-03-10 09:43 | CA_ITS ---
Transthoracic Echocardiogram Patient (Last, First, Middle): Royal Glover, Gender: Male Date of : 1960 Age: 64 Procedure Date: 03/10/2025 Procedure Type: Transthoracic Echocardiogram Location: OP Height: 157. cm Weight: 95.26 kg BSA: 1.95 m2 Heart Rate: 58 bpm BP: 100 / 60 mmHg Orange Picker Machine Operator: GIDEON Matthew MD: Kris Miner SUPPLY CATALOGUER [employer] Liaison Officer: Marcos Osuna MD Symptoms: I30.9 - Acute pericarditis, unspecified Study Quality: Fair ECG Rhythm: Sinus Conclusions: - 1. Severely dilated left ventricle with LVEF of 30-35% with grade 2 diastolic dysfunction 2. Severely dilated left atrium 3. Ckmu-ze-jxcwugim mitral regurgitation 4. Normal LV systolic pressure 5. Trivial pericardial effusion Findings Left Ventricle Severely increased left ventricular cavity size. There is normal left ventricular wall thickness. The left ventricular systolic function is moderate to severely decreased. Spectral Doppler is indicative of a restrictive filling pattern. E/E prime ratio is >15, consistent with elevated filling pressures. Evidence suggests grade III (severe) diastolic dysfunction. Right Ventricle Mildly increased right ventricular cavity size. There is normal right ventricular systolic function. There is an ICD wire seen in the right ventricle. Atria The left atrium is severely dilated. There is no evidence of interatrial shunt. The right atrium was not well visualized. Aortic Valve Normal aortic valve structure and function. There is no aortic valve stenosis. There is trace (trivial) aortic valve regurgitation. Mitral Valve There is mild anterior and moderate posterior mitral leaflet thickening. There is mild to moderate mitral valve regurgitation. There is no mitral valve stenosis. Pulmonic Valve The pulmonic valve was not well visualized. Tricuspid Valve Likely normal tricuspid valve structure and function. There is trace tricuspid valve regurgitation. The right ventricular systolic pressure is normal. The right ventricular systolic pressure is 20 mmHg. Normal right atrial pressure. There is no evidence of pulmonary hypertension. Great Vessels All visible segments of the aorta are normal in size. The pulmonary artery was not well visualized. There is no dilatation of the ascending aorta measuring 3.10 cm. Venous The inferior vena cava is normal in size and collapses greater than 50% with inspiration. Pericardium/Pleural There is a trivial pericardial effusion. Prior Study Comparison Changes noted compared to prior study dated: 11/29/2024. trivial pericardial effusion noted. LV ejection fraction has marginally improved Measurements 2D Linear Measurements IVSd: 0.81 0.6-0.9/0.6-1.0 cm LVIDd: 8.01 3.9-5.3/4.2-5.9 cm LVIDd Index: 4.11 2.4-3.2/2.2-3.1 cm/m2 LVIDs: 6.61 2.0-3.6 cm LVPWd: 0.89 0.7-1.1 cm Ao Root: 3.50 2.1-3.5 cm LA Diam: 5.10 2.7-3.8/3.0-4.0 cm LAIDs Index: 2.62 1.5-2.3 cm/m2 LV Mass: 417.05 67-162/88-224 g LV Mass Index: 213.87 43-95/49-115 g/m2 LVOT Diam: 2.40 3.0+(-)1.3 cm 2D Systolic Function EF 4C: 30.60 >55% EF 2C: 35.70 >55% EF BiP: 31.10 >55% Mitral Valve MV Pk E: 1.14 MV Decel Time: 217.00 E'Lateral: 5.55 E'Medial: 4.75 E/E' Med: 24.00 E/E' Lat: 20.50 PHT: 64.00 MVA PHT: 3.44 Decel Boundary: 5.33 MR Vol - PW Dopp: 9.80 MR VTI: 1.40 MR ERO: 7.00 MR Alias Noel: 0.35 MR RAD: 0.40 Aortic Valve AoV Pk Noel: 1.24 AoV Mn Noel: 0.89 AoV VTI: 0.24 AoV Pk Grad: 6.00 Aov Mn Grad: 4.00 TIAN Cont.VTI: 2.35 LVOT LVOT Pk Noel: 0.63 LVOT Mn Noel: 0.47 LVOT VTI: 0.12 LVOT Pk Grad: 2.00 LVOT Mn Grad: 1.00 LVOT Diam: 2.40 LVOT Area: 4.52 Diastolic Function MV Pk E: 1.14 E'Medial: 4.75 E/E' Med: 24.00 E' Laterial: 5.55 E/E' Lat: 20.50 Right Ventricle TAPSE (mm): 19.70 TVS' Noel: 9.75 Tricuspid Valve TR Pk Noel: 2.08 TR Pk Grad: 17.00 RA Press: 3.00 RVSP: 20.00 Great Vessels Aorta Ao Root-2D: 3.50 2.0-3.7 cm Ao Asc: 3.10 2.1-3.4 cm Pulmonary Valve PV Pk Noel: 0.77 Peak PV Grad: 2.00 Updated in Other Vendor System with Status of Final Marcos Osuna MD electronically signed on 03/10/2025 12:09:29 PM with status of Final
--- OUTSIDE RECORDS SUMMARY | 2025-03-10 10:29 | XMS_ITS | Clinical Summary ---
Author Organization [address] [facility] Address [address] [place] [address] Phone Care Team Providers Care Active Directory Architect Name Role Phone Gina Le MD Primary Care Provider [phone] Encounters Date Type Department Care Team Description 02/27/2025 10:24 AM EDT - 02/27/2025 11:59 PM EDT Hospital Encounter [facility] Non-Invasive Cardiology [address] [place] [address] Major depressive disorder, recurrent, severe with psychotic symptoms (CMS/HCC V24, CMS/HCC V28) Discharge Disposition: Home or Self Care from Last 3 Months Social History Tobacco Use Types Packs/Day Years [...] 1977 Zoster Vaccines (1 of 2) 2008 Pneumococcal Vaccine: 50+ Years (2 of 2 - PCV) 05/21/2020 05/21/2019 Abdominal Aortic Aneurysm (AAA) Screen 07/17/2022 Colorectal Cancer Screening: Colonoscopy 07/17/2022 Hepatitis C Screening 07/17/2022 Social Influencers of Health Screening 07/17/2022 Falls Risk Assessment 11/10/2023 COVID-19 Vaccine ( season) 2024 08/26/2021, 11/20/2020 Depression Screening 08/14/2024 Influenza Vaccine (#1) 2025 , 05/21/2019, 05/21/2014, Additional history exists Cholesterol Screening (Lipid Panel) 02/27/2030 02/27/2025 RSV Immunization Adult Patients (1 - 1-dose 75+ series) 2033 HIB [...] to complete this topic RSV Immunization Patients Under 20 months Aged Out No longer eligible based on patient's age to complete this topic Varicella Vaccines Aged Out No longer eligible based on patient's age to complete this topic Procedures Procedure Name Priority Date/Time Associated Diagnosis Comments ECG 12-LEAD Routine 02/27/2025 10:32 AM EDT Major depressive disorder, recurrent, severe with psychotic symptoms (CMS/HCC V24, CMS/HCC V28) PHOSPHORUS Routine 02/27/2025 10:13 AM EDT Severe recurrent major depression with psychotic features (CMS/HCC V24, CMS/HCC V28) Posttraumatic stress disorder CBC WITH AUTO DIFFERENTIAL Routine 02/27/2025 10:13 AM EDT Severe recurrent major depression with psychotic features (CMS/HCC V24, CMS/HCC V28) Posttraumatic stress disorder HEMOGLOBIN A1C Routine 02/27/2025 10:13 AM EDT Severe recurrent major depression with psychotic features (CMS/HCC V24, CMS/HCC V28) Posttraumatic stress disorder CBC AND DIFFERENTIAL Routine 02/27/2025 10:13 AM EDT Severe recurrent major depression with psychotic features (CMS/HCC V24, CMS/HCC V28) Posttraumatic stress disorder LIPID PANEL WITH REFLEX TO DIRECT LDL Routine 02/27/2025 10:13 AM EDT Severe recurrent major depression with psychotic features (CMS/HCC V24, CMS/HCC V28) Posttraumatic stress disorder COMPREHENSIVE METABOLIC PANEL Routine 02/27/2025 10:13 AM EDT Severe recurrent major depression with psychotic features (CMS/HCC V24, CMS/HCC V28) Posttraumatic stress disorder from Last 3 Months Results * ECG 12 lead (02/27/2025 10:32 AM EDT) Ventricular Rate ECG 60 BPM GEMUSE Atrial Rate 60 BPM GEMUSE P-R Interval 130 ms GEMUSE QRS Duration 132 ms GEMUSE Q-T Interval 478 ms GEMUSE QTc 478 ms GEMUSE P Wave [place] 48 degrees GEMUSE R [place] -44 degrees GEMUSE T [place] 56 degrees GEMUSE ECG Interpretation Atrial-sensed ventricular-pa cecilia rhythm Abnormal ECG When compared with ECG of 04-APR-2022 09:45, Electronic ventricular pacemaker has replaced Sinus rhythm Confirmed by Erin MAGDALENO JOHN ([id number]) on 02/27/2025 4:54:07 PM GEMUSE 02/27/2025 10:3 2 AM EDT 02/27/2025 4:54 PM EDT us Conner Teague NP ECG ORDERABLES Final Result GEMUSE * Lipid panel with reflex to direct LDL (02/27/2025 10:13 AM EDT) Pathologist [facility] Cholesterol 102 0 - 200 mg/dL LAB CHEMISTRY METHOD 02/27/2025 2:05 PM EDT [facility] Triglycerides 91 0 - 150 mg/dL LAB CHEMISTRY METHOD 02/27/2025 2:05 PM EDT [facility] HDL 42 >=40 mg/dL LAB CHEMISTRY METHOD 02/27/2025 2:05 PM EDT [facility] LDL Calculated 42 0 - 100 mg/dL LAB CHEMISTRY METHOD 02/27/2025 2:05 PM EDT [facility] VLDL Cholesterol Steve 18.2 mg/dL LAB [facility]STRY [facility] Non HDL Chol. (LDL+VLDL) 60 <145 mg/dL LAB CHEMISTRY METHOD 02/27/2025 2:05 PM [facility] Chol/HDL Ratio 2.4 0.0 - 4.4 LAB CHEMISTRY METHOD 02/27/2025 2:05 PM T [facility] Blood Venous blood specimen / Unknown Venipuncture / Unknown 02/27/2025 10:13 AM EDT 02/27/2025 12:13 PM EDT us Conner Teague GEAR LAPPING MACHINE OPERATOR LAB BLOOD ORDERABLES F inal Result [facility] [address] [place] [address], * (ABNORMAL) CBC auto differential (02/27/2025 10:13 AM EDT) [facility] WBC 4.9 4.8 - 10.8 K/mcL LAB HEMETOLOGY METHOD 02/27/2025 12:42 PM T [facility] RBC 5.20 4.50 - 5.50 M/mcL LAB HEMETOLOGY METHOD 02/27/2025 12:42 PM EDT [facility] Hemoglobin 15.0 13.5 - 17.5 g/dL LAB HEMETOLOGY METHOD 02/27/2025 12:42 PM EDT [facility] Hematocrit 46.4 42.0 - 54.0 % LAB HEMETOLOGY METHOD [facility]/27[facility]2025 12[facility] MCV 88.7 79.0 - 98.0 FL LAB HEMETOLOGY METHOD 02/27/2025 12:42 PM EDT [facility] MCH 28.7 27.0 - 32.0 pcg LAB HEMETOLOGY METHOD 02/27/2025 12:[facility] MCHC 32.3 32.0 - 37.0 g/dL LAB HEMETOLOGY METHOD 02/27/2025 12:42 PM [facility] RDW 13.6 11.0 - 15.0 % LAB HEMETOLOGY METHOD 02/27/2025 12:[facility] Platelets 219 130 - 400 K/mcL LAB HEMETOLOGY METHOD 02/27/2025 12:42 PM [facility] MPV 12.2(H) 7.0 - 11.0 FL LAB HEMETOLOGY METHOD 02/27/2025 12:[facility] NRBC 0.0 <1.0 % LAB HEMETOLOGY METHOD 02/27/2025 12:42 [facility] NRBC Absolute 0.00 <0.10 K/mcL LAB HEMETOLOGY METHOD 02/27/2025 12:42 [facility] Neutrophils Relative 51.6 % LAB HEMETOLOGY METHOD 02/27/2025 12:42 [facility] Lymphocytes Relative 34.6 % LAB HEMETOLOGY METHOD 02/27/2025 12:42 [facility] Monocytes Relative 10.2 % LAB HEMETOLOGY METHOD 02/27/2025 12:42 PM EDT [facility] Eosinophils Relative 2.0 % LAB HEMETOLOGY METHOD 02/27/2025 12:42 PM EDT [facility] Basophils Relative 1.4 % LAB HEMETOLOGY METHOD 02/27/2025 12:42 PM EDT [facility] Immature Granulocytes Relative 0.2 % LAB HEMETOLOGY METHOD 02/27/2025 12:42 PM EDT [facility] Neutrophils Absolute 2.53 1.50 - 7.00 K/mcL LAB HEMETOLOGY METHOD 02/27/2025 12:42 PM EDT [facility] Lymphocytes Absolute 1.70 1.00 - 5.00 K/mcL LAB HEMETOLOGY METHOD 02/27/2025 12:42 PM EDT [facility] Monocytes Absolute 0.50 0.20 - 1.00 K/mcL LAB HEMETOLOGY METHOD 02/27/2025 12:42 PM EDT [facility] Eosinophils Absolute 0.10 0.00 - 0.50 K/mcL LAB HEMETOLOGY METHOD 02/27/2025 12:42 PM EDT [facility] Basophils Absolute 0.07 0.00 - 0.20 K/mcL LAB HEMETOLOGY METHOD 02/27/2025 12:42 PM T [facility] Immature Granulocytes Absolute 0.01 0.00 - 0.03 K/mcL LAB HEMETOLOGY METHOD 02/27/2025 12:42 PM EDT [facility] Blood Venous blood specimen / Unknown Venipuncture / Unknown 02/27/2025 10:13 AM EDT 02/27/2025 12:17 PM EDT us Conner Teague NP LAB BLOOD ORDERABLES F inal Result [facility] [address] [place] [address], [place] [phone] * Phosphorus (02/27/2025 10:13 AM EDT) Phosphorus 2.8 2.5 - 4.5 mg/dL LAB CHEMISTRY METHOD 02/27/2025 2:01 PM EDT [facility] Blood Venous blood specimen / Unknown Venipuncture / Unknown 02/27/2025 10:13 AM EDT 02/27/2025 12:13 PM EDT Conner Teague GEAR LAPPING MACHINE OPERATOR LAB BLOOD ORDERABLES F inal Result Performing Organization Address City/[facility]/ZIP Co de Phone Number [facility] [address] [place] [address], [place] [phone] * Hemoglobin A1c (02/27/2025 10:13 AM EDT) [facility] Hemoglobin A1C 6.1 <6.5 % LAB CHEMISTRY METHOD 02/27/2025 2:27 PM EDT [facility] Mean Bld Glu Estim. 128 mg/dL LAB CHEMISTRY METHOD 02/27/2025 2:27 PM EDT [facility] Blood Venous blood specimen / Unknown Venipuncture / Unknown 02/27/2025 10:13 AM EDT 02/27/2025 12:17 PM EDT Conner Teague GEAR LAPPING MACHINE OPERATOR LAB BLOOD ORDERABLES F inal Result Performing Organization Address [facility]/ZIP Co de Phone Number [facility] [address] [place] [address], [place] [phone] * Comprehensive metabolic panel (02/27/2025 10:13 AM EDT) [facility] Sodium 141 133 - 145 mmol/L LAB CHEMISTRY METHOD 02/27/2025 2:05 PM EDT [facility] Potassium 3.9 3.5 - 5.5 mmol/L LAB CHEMISTRY METHOD 02/27/2025 2:05 PM [facility] Chloride 106 96 - 110 mmol/L LAB CHEMISTRY METHOD 02/27/2025 2:05 PM [facility] CO2 27 21 - 32 mmol/L LAB CHEMISTRY METHOD 02/27/2025 2:05 PM [facility] Anion Gap 8 3 - 11 LAB CHEMISTRY METHOD 02/27/2025 2:05 PM [facility] Glucose 90 70 - 100 mg/dL LAB CHEMISTRY METHOD 02/27/2025 2:05 PM [facility] BUN 12 5 - 25 mg/dL LAB CHEMISTRY METHOD 02/27/2025 2:05 PM [facility] Creatinine 1.01 0.70 - 1.30 mg/dL LAB CHEMISTRY METHOD 02/27/2025 2:05 PM [facility] eGFR 82 >=60 mL/min/1. 73m2 LAB CHEMISTRY METHOD 02/27/2025 2:05 PM [facility] Comment:Calculation based on the Chronic Kidney Disease Epidemiology Collaboration (CKD-EPI) equation refit without adjustment for race. BUN/Creatinine Ratio 11.9 LAB CHEMISTRY METHOD 02/27/2025 2:05 PM [facility] Calcium 9.3 8.5 - 10.5 mg/dL LAB CHEMISTRY METHOD 02/27/2025 2:05 PM [facility] AST (SGOT) 20 10 - 42 unit/L LAB CHEMISTRY METHOD 02/27/2025 2:05 PM [facility] ALT (SGPT) 30 10 - 60 unit/L LAB CHEMISTRY METHOD 02/27/2025 2:05 PM [facility] Alkaline Phosphatase 81 42 - 121 unit/L LAB CHEMISTRY METHOD 02/27/2025 2:05 PM [facility] Total Protein 7.3 6.0 - 8.0 g/dL LAB CHEMISTRY METHOD 02/27/2025 2:05 PM [facility] Albumin 3.9 3.2 - 5.0 g/dL LAB CHEMISTRY METHOD 02/27/2025 2:05 PM EDT [facility] Total Bilirubin 0.4 0.0 - 1.4 mg/dL LAB CHEMISTRY METHOD 02/27/2025 2:05 PM EDT [facility] Blood Venous blood specimen / Unknown Venipuncture / Unknown 02/27/2025 10:13 AM EDT 02/27/2025 12:13 PM EDT us Conner Teague GEAR LAPPING MACHINE OPERATOR LAB BLOOD ORDERABLES F inal Result [facility] [address] [place] [address], [place] [phone] from Last [address] [facility] Member Subscriber Plan / Payer (Ef fective 2023-Present) Name:YUNIOR GLOVER Relation to Subscriber:Self Name:Yunior Glover Payer ID:[id number] Group ID:[id number] Type:Not on file Address: [place] [address] [address] [phone] Care Teams Active Directory Architect Relationship Specialty Start Date End Date Gina Le MD [address] [facility] , [address] [facility]ician Associ D/B/A: [facility] CHADD Guadarrama PCP - General 10/04/22
== END ==
LOC: HO.CARD 09:38
PROVIDERS: PCP Internal Medicine; Visit Provider Internal Medicine Cardiovascular Disease
DX: I30.9 Acute pericarditis, unspecified (principal)
CPT/HCPCS: 93306

== ENCOUNTER → 2025-03-10 09:43 | Outpatient (BNV) | payer OTHER, SELFPAY | PROVIDERS: PCP Internal Medicine; Visit Provider Internal Medicine Cardiovascular Disease | DX: I50.30 Unspecified diastolic (congestive) heart failure (principal); I34.0 Nonrheumatic mitral (valve) insufficiency; I51.7 Cardiomegaly | CPT/HCPCS: 93306 ==

== ENCOUNTER → 2025-04-02 23:59 | Outpatient (BNV) | payer OTHER, SELFPAY ==
--- NOTE | 2025-04-04 15:07 | MHC.OFFVIS ---
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 pylori) GERD (gastroesophageal reflux disease) Breast pain Dyslipidemia Essential hypertension Obese Abdominal mass Insomnia Surgical History H/O abdominal surgery History of colonoscopy Family History Father No problems noted. Mother Kidney failure Social History Household Members: None Housing: Apartment Do you presently have visiting nurse or other home services: No Alcohol intake: former Patient Tobacco Use Status: Former Tobacco user Tobacco use type: Cigarette e-Cigarette/Vaping Use: Never Used Second Hand Smoke Exposure: No service: No Current occupational status: retired Cognitive needs: No Hearing needs: No Vision needs: No Office Procedures Cardiac Device Check Cardiac Device Check Details: Remote heart failure report generated 04/02/2025. Heart failure parameters are stable [id number] Cardiac Interrogation, subcut cardiac rhythm monitor Procedure code (CPT) selection complete Assessment & Plan Assessment & Plan (1) ICD (implantable cardioverter-defibrillator) in place: Code(s): Z95.810 - Presence of automatic (implantable) cardiac defibrillator Category: Medical Plan: See above Coding Level of Care Code Procedure Only Diagnoses ICD (implantable cardioverter-defibrillator) in place Z95.810 CPT Codes Cardiac Device Check - Cardiac Device 16: [id number] Cardiac Interrogation, subcut cardiac rhythm monitor ([id number])
== END ==
PROVIDERS: PCP Internal Medicine; Visit Provider Internal Medicine Cardiovascular Disease
DX: I50.9 Heart failure, unspecified (principal); Z95.810 Presence of automatic (implantable) cardiac defibrillator
CPT/HCPCS: 93297

== ENCOUNTER → 2025-04-02 23:59 | Outpatient (BNV) | payer OTHER, SELFPAY ==
--- NOTE | 2025-04-04 15:08 | MHC.OFFVIS ---
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 pylori) GERD (gastroesophageal reflux disease) Breast pain Dyslipidemia Essential hypertension Obese Abdominal mass Insomnia Surgical History H/O abdominal surgery History of colonoscopy Family History Father No problems noted. Mother Kidney failure Social History Household Members: None Housing: Apartment Do you presently have visiting nurse or other home services: No Alcohol intake: former Patient Tobacco Use Status: Former Tobacco user Tobacco use type: Cigarette e-Cigarette/Vaping Use: Never Used Second Hand Smoke Exposure: No service: No Current occupational status: retired Cognitive needs: No Hearing needs: No Vision needs: No Office Procedures Cardiac Device Check Cardiac Device Check Details: Remote ICD report generated 04/02/2025. ICD function is adequate [id number] Cardiac Interrogation, implant defibrillator w/interim Procedure code (CPT) selection complete Assessment & Plan Assessment & Plan (1) ICD (implantable cardioverter-defibrillator) in place: Code(s): Z95.810 - Presence of automatic (implantable) cardiac defibrillator Category: Medical Plan: See above Coding Level of Care Code Procedure Only Diagnoses ICD (implantable cardioverter-defibrillator) in place Z95.810 CPT Codes Cardiac Device Check - Cardiac Device 13: [id number] Cardiac Interrogation, implant defibrillator w/interim ([id number])
== END ==
PROVIDERS: PCP Internal Medicine; Visit Provider Internal Medicine Cardiovascular Disease
DX: Z45.02 Encounter for adjustment and management of automatic implantable cardiac defibrillator (principal)
CPT/HCPCS: 93295

== ENCOUNTER 2025-04-15 17:17 | Outpatient (AMB) | payer OTHER, SELFPAY ==
--- OUTSIDE RECORDS SUMMARY | 2025-04-15 17:20 | XMS_ITS | Clinical Summary ---
Author Organization [address] [facility] Address [address] [place] [address] Phone Care Team Providers Care Event Promotions Coordinator Name Role Phone Gina Le MD Primary Care Provider [phone] Encounters Date Type Department Care Team Description 02/27/2025 10:24 AM EDT - 02/27/2025 11:59 PM EDT Hospital Encounter [facility] Non-Invasive Cardiology [address] [place] [address] Major depressive disorder, recurrent, severe [...] Health Screening 07/17/2022 Falls Risk Assessment 11/10/2023 Depression Screening 08/14/2024 COVID-19 Vaccine ( season) 2025 08/26/2021, 11/20/2020 Influenza Vaccine (#1) 2025 , 05/21/2019, 05/21/2014, [...] GEMUSE QTc 478 ms GEMUSE P Wave [place] 48 degrees GEMUSE R [place] -44 degrees GEMUSE T [place] 56 degrees GEMUSE ECG Interpretation Atrial-sensed ventricular-pa [...] LDL (02/27/2025 10:13 AM EDT) Pathologist [facility] Cholesterol 102 0 - 200 mg/dL LAB CHEMISTRY METHOD 02/27/2025 2:05 PM EDT [facility] Triglycerides 91 0 - 150 mg/dL LAB CHEMISTRY METHOD 02/27/2025 2:05 PM EDT [facility] HDL 42 >=40 mg/dL LAB CHEMISTRY METHOD 02/27/2025 2:05 PM EDT [facility] LDL Calculated 42 0 - 100 mg/dL LAB CHEMISTRY METHOD 02/27/2025 2:05 PM EDT [facility] VLDL Cholesterol Steve 18.2 mg/dL LAB [facility]STR[facility] Non HDL Chol. (LDL+VLDL) 60 <145 mg/dL LAB CHEMISTRY METHOD 02/27/2025 2:05 PM [facility] Chol/HDL Ratio 2.4 0.0 - 4.4 LAB CHEMISTRY METHOD 02/27/2025 2:05 PM T [facility] Blood Venous blood specimen / Unknown Venipuncture / Unknown 02/27/2025 10:13 AM EDT 02/27/2025 12:13 PM EDT us Conner Teague CAN OPERATOR LAB BLOOD ORDERABLES F inal Result [facility] [address] [place] [address], * (ABNORMAL) CBC auto differential (02/27/2025 10:13 AM EDT) [facility] WBC 4.9 4.8 - 10.8 K/mcL LAB HEMETOLOGY METHOD 02/27/2025 12:42 PM T [facility] RBC 5.20 4.50 - 5.50 M/mcL LAB HEMETOLOGY METHOD 02/27/2025 12:42 PM EDT [facility] Hemoglobin 15.0 13.5 - 17.5 g/dL LAB HEMETOLOGY METHOD 02/27/2025 12:42 PM EDT [facility] Hematocrit 46.4 42.0 - 54.0 % LAB HEMETOLOGY METHOD 02/27[facility]2025 12[facility] MCV 88.7 79.0 - 98.0 FL LAB HEMETOLOGY METHOD 02/27/2025 12:42 PM EDT [facility] MCH 28.7 27.0 - 32.0 pcg LAB HEMETOLOGY METHOD 02/27/2025 12:[facility] MCHC 32.3 32.0 - 37.0 g/dL LAB HEMETOLOGY METHOD 02/27/2025 12:42 PM [facility] RDW 13.6 11.0 - 15.0 % LAB HEMETOLOGY METHOD 02/27/2025 12:[facility] Platelets 219 130 - 400 K/mcL LAB HEMETOLOGY METHOD 02/27/2025 12:42 PM [facility] MPV 12.2(H) 7.0 - 11.0 FL LAB HEMETOLOGY METHOD 02/27/2025 12:[facility] NRBC 0.0 <1.0 % LAB HEMETOLOGY METHOD 02/27/2025 12:[facility] NRBC Absolute 0.00 <0.10 K/mcL LAB HEMETOLOGY METHOD 02/27/2025 12:[facility] Neutrophils Relative 51.6 % LAB HEMETOLOGY METHOD 02/27/2025 12:[facility] Lymphocytes Relative 34.6 % LAB HEMETOLOGY METHOD 02/27/2025 12:[facility] Monocytes Relative 10.2 % LAB HEMETOLOGY METHOD 02/27/2025 12:42 PM EDT [facility] Eosinophils Relative 2.0 % LAB HEMETOLOGY METHOD 02/27/2025 12:42 PM EDT [facility] Basophils Relative 1.4 % LAB HEMETOLOGY METHOD 02/27/2025 12:42 PM EDT [facility] Immature Granulocytes Relative 0.2 % LAB HEMETOLOGY METHOD 02/27/2025 12:42 PM EDT [facility] Neutrophils Absolute 2.53 1.50 - 7.00 K/mcL LAB HEMETOLOGY METHOD 02/27/2025 12:42 PM EDT [facility] Lymphocytes Absolute 1.70 1.00 - 5.00 K/mcL LAB HEMETOLOGY METHOD 02/27/2025 12:42 PM EDT [facility] Monocytes Absolute 0.50 0.20 - 1.00 K/mcL LAB HEMETOLOGY METHOD 02/27/2025 12:42 PM EDT [facility] Eosinophils Absolute 0.10 0.00 - 0.50 K/mcL LAB HEMETOLOGY METHOD 02/27/2025 12:42 PM EDT [facility] Basophils Absolute 0.07 0.00 - 0.20 K/mcL LAB HEMETOLOGY METHOD 02/27/2025 12:42 PM T [facility] Immature Granulocytes Absolute 0.01 0.00 - 0.03 K/mcL LAB HEMETOLOGY METHOD 02/27/2025 12:42 PM EDT [facility] Blood Venous blood specimen / Unknown Venipuncture / Unknown 02/27/2025 10:13 AM EDT 02/27/2025 12:17 PM EDT us Conner Teague NP LAB BLOOD ORDERABLES F inal Result [facility] [address] [place] [address], [place] [phone] * Phosphorus (02/27/2025 10:13 AM EDT) Phosphorus 2.8 2.5 - 4.5 mg/dL LAB CHEMISTRY METHOD 02/27/2025 2:01 PM EDT [facility] Blood Venous blood specimen / Unknown Venipuncture / Unknown 02/27/2025 10:13 AM EDT 02/27/2025 12:13 PM EDT Conner Teague CAN OPERATOR LAB BLOOD ORDERABLES F inal Result Performing Organization Address City/[facility]/ZIP Co de Phone Number [facility] [address] [place] [address], [place] [phone] * Hemoglobin A1c (02/27/2025 10:13 AM EDT) [facility] Hemoglobin A1C 6.1 <6.5 % LAB CHEMISTRY METHOD 02/27/2025 2:27 PM EDT [facility] Mean Bld Glu Estim. 128 mg/dL LAB CHEMISTRY METHOD 02/27/2025 2:27 PM EDT [facility] Blood Venous blood specimen / Unknown Venipuncture / Unknown 02/27/2025 10:13 AM EDT 02/27/2025 12:17 PM EDT Conner Teague CAN OPERATOR LAB BLOOD ORDERABLES F inal Result Performing Organization Address City/[facility]/ZIP Co de Phone Number [facility] [address] [place] [address], [place] [phone] * Comprehensive metabolic panel (02/27/2025 10:13 AM EDT) [facility] Sodium 141 133 - 145 mmol/L LAB CHEMISTRY METHOD 02/27/2025 2:05 PM EDT [facility] Potassium 3.9 3.5 - 5.5 mmol/L LAB CHEMISTRY METHOD 02/27/2025 2:05 PM [facility] Chloride 106 96 - 110 mmol/L LAB CHEMISTRY METHOD 02/27/2025 2:05 PM [facility] CO2 27 21 - 32 mmol/L LAB CHEMISTRY METHOD 02/27/2025 2:05 PM [facility] Anion Gap 8 3 - 11 LAB CHEMISTRY METHOD 02/27/2025 2:05 PM [facility] Glucose 90 70 - 100 mg/dL LAB CHEMISTRY METHOD 02/27/2025 2:05 PM [facility] BUN 12 5 - 25 mg/dL LAB CHEMISTRY METHOD 02/27/2025 2:05 PM [facility] Creatinine 1.01 0.70 - 1.30 mg/dL LAB CHEMISTRY METHOD 02/27/2025 2:05 PM [facility] eGFR 82 >=60 mL/min/1. 73m2 LAB CHEMISTRY METHOD 02/27/2025 2:05 PM [facility] Comment:Calculation based on the Chronic Kidney Disease Epidemiology Collaboration (CKD-EPI) equation refit without adjustment for race. BUN/Creatinine Ratio 11.9 LAB CHEMISTRY METHOD 02/27/2025 2:05 PM [facility] Calcium 9.3 8.5 - 10.5 mg/dL LAB CHEMISTRY METHOD 02/27/2025 2:05 PM [facility] AST (SGOT) 20 10 - 42 unit/L LAB CHEMISTRY METHOD 02/27/2025 2:05 PM [facility] ALT (SGPT) 30 10 - 60 unit/L LAB CHEMISTRY METHOD 02/27/2025 2:05 PM [facility] Alkaline Phosphatase 81 42 - 121 unit/L LAB CHEMISTRY METHOD 02/27/2025 2:05 PM [facility] Total Protein 7.3 6.0 - 8.0 g/dL LAB CHEMISTRY METHOD 02/27/2025 2:05 PM [facility] Albumin 3.9 3.2 - 5.0 g/dL LAB CHEMISTRY METHOD 02/27/2025 2:05 PM EDT [facility] Total Bilirubin 0.4 0.0 - 1.4 mg/dL LAB CHEMISTRY METHOD 02/27/2025 2:05 PM EDT [facility] Blood Venous blood specimen / Unknown Venipuncture / Unknown 02/27/2025 10:13 AM EDT 02/27/2025 12:13 PM EDT us Conner Teague CAN OPERATOR LAB BLOOD ORDERABLES F inal Result [facility] [address] [place] [address], [place] [phone] from Last [address] [facility] Member Subscriber Plan / Payer (Ef fective 2023-Present) Name:YUNIOR GLOVER Relation to Subscriber:Self Name:Yunior Glover Payer ID:[id number] Group ID:[id number] Type:Not on file Address: [place] [address] [address] [id number] Care Teams Event Promotions Coordinator Relationship Specialty Start Date End Date Gina Le MD [address] [facility] , [address] [facility] Physician Associ D/B/A: [facility] CHADD Guadarrama PCP - General 10/04/22
--- NOTE | 2025-04-15 17:24 | MHC.PC.OV ---
Vital Signs 04/15/25 17:25 Height 5 ft 6 in Weight 204 lb BMI 32.9 BP 130/62 Blood Pressure Location Lt brachial Position Sitting Pulse 69 Pulse Source Pulse Oximeter Pulse Oximetry (%) 96 Oxygen Delivery Method Room Air Intake Visit Reasons: follow up Intake Note: Complaining on rash on right arm. Leg and hip pain [employer] Laboratory Assistant Required: No Accompanied by: Self / Same As Patient Allergies No Known Allergies (No Known Allergies*) Allergy (Verified 04/15/25 17:48) Medication List - Last Reconciled 04/15/25 by Gina Le MD amiodarone 200 mg PO BID apixaban (Eliquis) 5 mg PO BID aspirin 81 mg PO DAILY atorvastatin 80 mg PO DAILY blood sugar diagnostic ([employer] Ultra Test strips) Use 1 test strip once a day blood-glucose meter ([employer] Ultra2 Meter) As directed colchicine (Colcrys) 0.6 mg PO DAILY empagliflozin (Jardiance) 10 mg PO DAILY hydrocortisone 1% 1 appl topical BID PRN lancets (FreeStyle Lancets) Use 1 lancet once a day lancets (HappyBoxTouch UltraSoft 2 Lancet) Use 1 lancet once a day melatonin 5 mg PO BEDTIME metoprolol succinate ER 25 mg PO DAILY olanzapine 10 mg PO BEDTIME sacubitril-valsartan 24-26 mg 1 tab PO BID sertraline 50 mg PO DAILY trazodone 200 mg PO BEDTIME Tobacco use date assessed: 12/13/24 Fall risk assessment: No Falls in past year Last assessed Fall Risk: 04/15/25 Dental Screening Dental Screen Date: 08/22/24 HPI HPI Comments History of Present Illness Details This is a 64-year-old male with hypertension, persistent atrial fibrillation, nonischemic cardiomyopathy and hyperlipidemia that comes today complaining of a rash in right arm that started few months ago that is pruritic blood pressure has been somewhat stable. Atrial fibrillation and cardiomyopathy are follow by cardiology. Had a pericardial effusion requiring pericardiocentesis few months ago. Denies any chest pain or shortness on breath. 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 pylori) GERD (gastroesophageal reflux disease) Breast pain Dyslipidemia Essential hypertension Obese Abdominal mass Insomnia Surgical History H/O abdominal surgery History of colonoscopy Family History Father No problems noted. Mother Kidney failure Social History Household Members: None Housing: Apartment Do you presently have visiting nurse or other home services: No Alcohol intake: former Patient Tobacco Use Status: Former Tobacco user Tobacco use type: Cigarette e-Cigarette/Vaping Use: Never Used Second Hand Smoke Exposure: No service: No Current occupational status: retired Cognitive needs: No Hearing needs: No Vision needs: No Questionnaire PHQ-9 Over the last 2 weeks, how often have you been bothered by any of the following problems? 1. Little interest or pleasure in doing things: several days 2. Feeling down, depressed, or hopeless: several days 3. Trouble falling or staying asleep, or sleeping too much: several days 4. Feeling tired or having little energy: several days 5. Poor appetite or overeating: more than half the days 6. Feeling bad about yourself - or that you are a failure or have let yourself or your family down: several days 7. Trouble concentrating on things, such as reading the newspaper or watching television: not at all 8. Moving or speaking so slowly that other people could have noticed. Or the opposite - being so fidgety or restless that you have been moving around a lot more than usual: not at all 9. Thoughts that you would be better off or of hurting yourself in some way: not at all Total score: 7 Depression Screening Interpretation: Positive Depression Screening Follow-up: Existing condition, In treatment, Community Mental Health Worker F/U and Follow-up Visit Requested Depression Screening Done: Yes 82085 - PHQ-9 Billing: Yes Source: Developed by Drs. Elias L. TonieBarbie avila Kurt Kroenke and colleagues, with an educational elroy from [employer]. Thrive Questionnaire Date Thrive assessed: 11/27/24 AUDIT C Alcohol Use Questionnaire (AUDIT-C) 1. How often do you have a drink containing alcohol?: 2-4 times a month 2. How many drinks containing alcohol do you have on a typical day when you are drinking?: 3 or 4 3. How often do you have six or more drinks on one occasion?: Never Total Score: 3 MIGUELINA-7 AMB Questionnaire MIGUELINA-7 Date MIGUELINA - 7 assessed: 08/22/24 Source: Developed by Drs. Elias Schilling, Flavio Johnson and colleagues, with an educational elroy from [employer]. Review of Systems Const All systems reviewed & are unremarkable except as noted in HPI and below Card Denies chest pain at rest, Denies chest pain with activity, Denies edema, Denies irregular heart rhythm, Denies claudication, Denies dyspnea, Denies dyspnea on exertion, Denies orthopnea, Denies paroxysmal nocturnal dyspnea and Denies slow heart rate Resp Denies cough, Denies dyspnea and Denies dyspnea on exertion GI Denies abdominal pain, Denies change in bowel habits, Denies excessive flatus, Denies nausea and Denies vomiting Physical exam (Primary Care) Vital Signs: Last Vital Signs Pulse 69 04/15/25 17:25 BP 130/62 04/15/25 17:25 Pulse Ox 96 04/15/25 17:25 Oxygen Delivery Method Room Air 04/15/25 17:25 BMI result Body Mass Index 32.9 Tobacco/Smoking Status: Tobacco use Status Tobacco use date assessed 12/13/24 04/15/25 17:26 Patient Tobacco Use Status Former Tobacco user 04/15/25 17:26 Tobacco use type Cigarette 04/15/25 17:26 e-Cigarette/Vaping Use Never Used 04/15/25 17:26 PHQ-9: PHQ-9 Score PHQ-9: Total score 7 04/15/25 17:53 Depression Screening Interpretation: Positive Depression Screening Follow-up: Existing condition, In treatment, Community Mental Health Worker F/U and Follow-up Visit Requested Thrive Assessment: Date of Thrive Assessment Date Thrive assessed 11/27/24 04/15/25 17:26 Resp Effort & Inspection: normal respiratory effort Auscultation: clear to auscultation bilaterally Cardio Jugular venous distension: no JVD Rate: regular rate Rhythm: regular rhythm Heart sounds: S1 normal heart sound present and S2 normal heart sound present Extrem General: Yes full ROM Results AMB Hemoglobin A1c AMB Hemoglobin A1c 5.1 % Last Edit by Sally Vincent CMA on 04/15/25 17:41 Results Reviewed Results Reviewed: Laboratory Last Values Hgb A1c (Clinic) 5.1 % (4.0-6.0) 04/15/25 17:26 Coding Level of Care Code Est Pt Level 4 (84279) Complex EM visit Add On G2211 Diagnoses NICM (nonischemic cardiomyopathy) I42.8 Essential hypertension I10 Persistent atrial fibrillation I48.19 Dyslipidemia E78.5 Rash R21 Additional Codes PHQ-9 - 67186 - PHQ-9 Billing: Yes ([id number]) Time Spent (min) 23 Assessment & Plan Assessment & Plan (1) NICM (nonischemic cardiomyopathy): Code(s): I42.8 - Other cardiomyopathies Category: Medical (2) Essential hypertension: Code(s): I10 - Essential (primary) hypertension Category: Medical (3) Persistent atrial fibrillation: Code(s): I48.19 - Other persistent atrial fibrillation Category: Medical (4) Dyslipidemia: Code(s): E78.5 - Hyperlipidemia, unspecified Category: Medical (5) Rash: Code(s): R21 - Rash and other nonspecific skin eruption Category: Medical Plan Continue current meds. Referred to Dermatology. Cream sent. Labs ordered. Orders: Orders Complete Blood Count Auto Diff Today D64.9 - Anemia, unspecified Comprehensive Met. Panel Today I42.8 - Other cardiomyopathies NT-proBNP Today I42.8 - Other cardiomyopathies AMB Hemoglobin A1c Today Z13.9 - Encounter for screening, unspecified IRON PROFILE Today D64.9 - Anemia, unspecified Lipid Panel Today E78.5 - Hyperlipidemia, unspecified Referrals Dermatology Referral R21 - Rash and other nonspecific skin eruption Medications: New triamcinolone acetonide 0.1% 1 appl topical DAILY 15 grams 1RF 30 days
[2025-04-15 17:25] VITALS: BP 130/62; PULSE 69; O2SAT 96; BMI 32.9
== END 2025-04-15 17:56 | disposition home or self-care (01) ==
LOC: HO.HMCH 17:17
PROVIDERS: PCP Internal Medicine; Visit Provider Internal Medicine
DX: I42.8 Other cardiomyopathies (principal); I10 Essential (primary) hypertension; I48.19 Other persistent atrial fibrillation; E78.5 Hyperlipidemia, unspecified; R21 Rash and other nonspecific skin eruption; Z13.9 Encounter for screening, unspecified

== ENCOUNTER → 2025-04-15 17:17 | Outpatient (BNVA) | payer OTHER, SELFPAY | PROVIDERS: PCP Internal Medicine; Visit Provider Internal Medicine | DX: I10 Essential (primary) hypertension (principal); I48.19 Other persistent atrial fibrillation; I42.8 Other cardiomyopathies; E78.5 Hyperlipidemia, unspecified; R21 Rash and other nonspecific skin eruption | CPT/HCPCS: 83036; 96127; 99212 ==

== ENCOUNTER 2025-05-01 14:24 | Outpatient (AMB) | payer OTHER, SELFPAY ==
--- NOTE | 2025-05-01 15:00 | A.OFFVIS_ITS ---
Vital Signs 05/01/25 15:03 Height 5 ft 6 in Weight 207 lb 3.752 oz BMI 33.4 BP 126/84 Blood Pressure Location Lt brachial Position Sitting Pulse 66 Pulse Source Monitor Intake Visit Reasons: 4m follow up Pneumatic Tool Operator Required: Yes Pneumatic Tool Operator Name: Chelle Cee [id number] Accompanied by: Self / Same As Patient Allergies No Known Allergies (No Known Allergies*) Allergy (Verified 05/01/25 15:05) Medication List - Last Reconciled 05/01/25 by Kris Miner NP amiodarone 200 mg PO BID apixaban (Eliquis) 5 mg PO BID aspirin 81 mg PO DAILY atorvastatin 80 mg PO DAILY blood sugar diagnostic (Fitbituch Ultra Test strips) Use 1 test strip once a day blood-glucose meter (Transmit Promo Ultra2 Meter) As directed colchicine (Colcrys) 0.6 mg PO DAILY empagliflozin (Jardiance) 10 mg PO DAILY hydrocortisone 1% 1 appl topical BID PRN lancets (FreeStyle Lancets) Use 1 lancet once a day lancets (Chic by ChoiceTouch UltraSoft 2 Lancet) Use 1 lancet once a day melatonin 5 mg PO BEDTIME metoprolol succinate ER 25 mg PO DAILY olanzapine 10 mg PO BEDTIME sacubitril-valsartan 24-26 mg 1 tab PO BID sertraline 50 mg PO DAILY trazodone 200 mg PO BEDTIME triamcinolone acetonide 0.1% 1 appl topical DAILY 30 days HPI Comments Details: This is a 64-year-old male patient coming in for a follow-up visit. Patient is Welsh-speaking and therefore a heavy line technician was used throughout the visit. Patient with a history of hypertension, hyperlipidemia, diabetes, coronary artery disease status post PCI, AFib/a flutter status post ablation, and HFrEF with left bundle branch block status post Bi V ICD placement. Back in November, patient underwent pericardiocentesis and has not completed his course of colchicine. Patient has repeated an echo and is here to review the results with this. Patient is otherwise reporting feeling well overall without any cardiac symptoms of exertional chest pain, shortness of breath, palpitations, dizziness, orthopnea, PND, leg edema, presyncope, or syncope. Patient is reporting compliance with all his medications. [facility] Medical History (Updated 05/01/25 @ 16:28 by Kris Miner NP) Acute pericardial effusion Rash and nonspecific skin eruption CHF exacerbation Acute on chronic systolic and diastolic heart failure, NYHA class 3 Persistent atrial fibrillation Congestive heart failure Atrial flutter Atrial fibrillation with rapid ventricular response Atrial fibrillation Alcohol use Hyperlipidemia LDL goal <70 Chronic sore throat Colon perforation Foreign body in sigmoid colon Onychomycosis 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 pylori) GERD (gastroesophageal reflux disease) Breast pain Dyslipidemia Essential hypertension Obese Abdominal mass Insomnia Surgical History H/O abdominal surgery History of colonoscopy Family History Father No problems noted. Mother Kidney failure Social History Household Members: None Housing: Apartment Do you presently have visiting nurse or other home services: No Alcohol intake: former Patient Tobacco Use Status: Former Tobacco user Tobacco use type: Cigarette e-Cigarette/Vaping Use: Never Used Second Hand Smoke Exposure: No service: No Current occupational status: retired Cognitive needs: No Hearing needs: No Vision needs: No Review of Systems Const Denies daytime sleepiness, Denies difficulty sleeping, Denies snoring, Denies stops breathing during sleep and Denies weakness Card Denies chest pain, Denies rapid heart rate, Denies irregular heart rhythm, Denies claudication, Denies leg edema, Denies lightheadedness, Denies palpitations, Denies dyspnea, Denies dyspnea on exertion, Denies orthopnea, Denies paroxysmal nocturnal dyspnea and Denies slow heart rate Resp Denies cough, Denies dyspnea, Denies dyspnea on exertion and Denies snoring GI Reports no additional complaints, Denies hematochezia, Denies change in stool character and Denies dyspepsia Musc Denies abnormal gait, Denies muscle weakness and Denies numbness Neuro Denies abnormal gait, Denies numbness and Denies weakness Endo Denies palpitations Physical Exam Vital Signs: Last Vital Signs Pulse 66 05/01/25 15:03 BP 126/84 05/01/25 15:03 BMI result Body Mass Index 33.4 Const General: cooperative, healthy appearing, comfortable and no acute distress Orientation/consciousness: patient oriented x3 HEENT Head: Yes normal to inspection Neck Neck: Yes normal visual inspection, Yes trachea midline and Yes supple Chest Chest palpation & inspection: normal inspection of the chest Resp Effort & Inspection: normal respiratory effort Auscultation: clear to auscultation bilaterally, no crackles, no rales, no rhonchi and no wheezes Cardio Jugular venous distension: no JVD Palpation: normal PMI Rate: regular rate Rhythm: regular rhythm Heart sounds: S1 normal heart sound present, S2 normal heart sound present, no click, no gallops, no murmurs and no rubs Peripheral pulses: Peripheral pulses 2+ throughout GI Inspection: Yes normal to inspection Palpation (GI): Soft to palpation Auscultation: normal bowel sounds Skin General skin exam: no rashes or lesions noted Neuro General: patient oriented x3 Extrem General: Yes normal to inspection, No no pedal edema and No calf tenderness Psych Appearance: grossly normal Mental Status: mental status grossly normal Speech and movement: Normal speech and movement present Office Procedures EKG Details: EKG today showed atrial sensed ventricular paced rhythm with occasional PVCs, rate 66 beats per minute, nonspecific ST-T waves, [place], [place]. [id number], Complete Assessment & Plan Assessment & Plan (1) NICM (nonischemic cardiomyopathy): Code(s): I42.8 - Other cardiomyopathies Category: Medical Plan: 03/10/2025-repeat echo study showed mildly improved LV systolic function with an ejection fraction between 30-35% with grade 2 diastolic dysfunction, severely dilated left ventricle and left atrium, trivial pericardial effusion, and [id number] mitral regurgitation. Status post Bi V ICD placement on 07/12/2024. Back in November, patient had an episode of pericardiocentesis and Pericardial fluid analysis came back negative. Patient has completed his course of colchicine. Clinically euvolemic and stable. Continue Jardiance, metoprolol, and we will increase Entresto. Discussed in detail about signs and symptoms to look for with heart failure and when to seek medical care. Advised low-salt diet, fluid restriction at 1.5-2 L, and daily weight monitoring. We will repeat labs in 1 month and an echo in 6 months. (2) Paroxysmal atrial fibrillation: Code(s): I48.0 - Paroxysmal atrial fibrillation Category: Medical Plan: Patient is status post cardioversion and ablation. Patient had some recurrent AFib. Continue with Eliquis for full anticoagulation therapy continue with amiodarone and metoprolol for rhythm and rate control approach. No reports of falls or signs of bleeding. We will monitor labs periodically. (3) Dyslipidemia: Code(s): E78.5 - Hyperlipidemia, unspecified Category: Medical Plan: No recent LDL. Emphasized on the need to complete his lab work. Continue high- dose statin therapy. Ideally, LDL goal for patient less than 70. (4) Essential hypertension: Code(s): I10 - Essential (primary) hypertension Category: Medical Plan: Blood pressure today is well-controlled. Continue with the current regimen. Advised patient to monitor blood pressures at home. We will send a prescription for blood pressure cuff. Ideally, blood pressure goal less than 130/80. (5) ICD (implantable cardioverter-defibrillator) in place: Code(s): Z95.810 - Presence of automatic (implantable) cardiac defibrillator Category: Medical Plan: Medtronic ICD functioning adequately on recent scheduled transmission. We will continue to remotely monitor this. Patient will return in 6 months for a device check. Advised heart healthy diet, regular exercise, med compliance, and management of vascular risk factors. Follow up in 6 months. In the interim, patient will call the office with any concerns or change in symptoms. This note was generated using voice recognition software. While every effort has been made to ensure accuracy and proper gang drill operator, there may be occasional errors that could affect the content or meaning of the described symptoms. Orders: Orders CA echo transthoracic complete 5 Months I42.8 - Other cardiomyopathies Basic Metabolic Panel Today I42.8 - Other cardiomyopathies AMB EKG-In Office Today I48.0 - Paroxysmal atrial fibrillation Medications: New blood pressure kit-extra large As directed 1 ea 0RF I10 - Essential (primary) hypertension sacubitril-valsartan 49-51 mg 1 tab PO BID 60 tabs 5RF Discontinued colchicine (Colcrys) Discontinued Reason: Patient Completed Course 0.6 mg PO DAILY 90 tabs 0RF sacubitril-valsartan 24-26 mg Discontinued Reason: Doctor's Order 1 tab PO BID 180 tabs 3RF Coding Level of Care Code Est Pt Level 4 (59116) Complex EM visit Add On G2211 Diagnoses NICM (nonischemic cardiomyopathy) I42.8 Paroxysmal atrial fibrillation I48.0 Dyslipidemia E78.5 Essential hypertension I10 ICD (implantable cardioverter-defibrillator) in place Z95.810 CPT Codes EKG - CPT: 10891-Ytyyezgevurvmtyyj, Complete ([id number]) Time Spent (min) 33 Comment Time spent in reviewing the chart, test results, assessment, counseling and documentation.
[2025-05-01 15:03] VITALS: BP 126/84; PULSE 66; BMI 33.4
--- OUTSIDE RECORDS SUMMARY | 2025-05-01 16:14 | XMS_ITS | Clinical Summary ---
Author Organization [address] [facility] Address [address] [place] [address] Phone Care Team Providers Care Retail Sales Vitamin Consultant Name Role Phone Gina Le MD Primary Care Provider [phone] Encounters Date Type Department Care Team Description 02/27/2025 10:24 AM EDT - 02/27/2025 11:59 PM EDT Hospital Encounter [facility] Non-Invasive Cardiology [address] [place] [address] Major depressive disorder, recurrent, severe [...] GEMUSE QTc 478 ms GEMUSE P Wave [place] 48 degrees GEMUSE R [place] -44 degrees GEMUSE T [place] 56 degrees GEMUSE ECG Interpretation Atrial-sensed ventricular-pa [...] direct LDL (02/27/2025 10:13 AM EDT) Pathologist [facility] Cholesterol 102 0 - 200 mg/dL LAB CHEMISTRY METHOD 02/27/2025 2:05 PM EDT [facility] Triglycerides 91 0 - 150 mg/dL LAB CHEMISTRY METHOD 02/27/2025 2:05 PM EDT [facility] HDL 42 >=40 mg/dL LAB CHEMISTRY METHOD 02/27/2025 2:05 PM EDT [facility] LDL Calculated 42 0 - 100 mg/dL LAB CHEMISTRY METHOD 02/27/2025 2:05 PM EDT [facility] VLDL Cholesterol Steve 18.2 mg/dL LAB [facility] Non HDL Chol. (LDL+VLDL) 60 <145 mg/dL LAB CHEMISTRY METHOD 02/27/2025 2:05 PM [facility] Chol/HDL Ratio 2.4 0.0 - 4.4 LAB CHEMISTRY METHOD 02/27/2025 2:05 PM T [facility] Blood Venous blood specimen / Unknown Venipuncture / Unknown 02/27/2025 10:13 AM EDT 02/27/2025 12:13 PM EDT us Conner Taegue AUTO MACHINIST LAB BLOOD ORDERABLES F inal Result [facility] [address] [place] [address], * (ABNORMAL) CBC auto differential (02/27/2025 10:13 AM EDT) [facility] WBC 4.9 4.8 - 10.8 K/mcL LAB HEMETOLOGY METHOD 02/27/2025 12:42 PM T [facility] RBC 5.20 4.50 - 5.50 M/mcL LAB HEMETOLOGY METHOD 02/27/2025 12:42 PM EDT [facility] Hemoglobin 15.0 13.5 - 17.5 g/dL LAB HEMETOLOGY METHOD 02/27/2025 12:42 PM EDT [facility] Hematocrit 46.4 42.0 - 54.0 % LAB HEMETOLOGY METHOD [facility]/27[facility]2025 12[facility] MCV 88.7 79.0 - 98.0 FL LAB HEMETOLOGY METHOD 02/27/2025 12:42 PM EDT [facility] MCH 28.7 27.0 - 32.0 pcg LAB HEMETOLOGY METHOD 02/27/2025 12:[facility] MCHC 32.3 32.0 - 37.0 g/dL LAB HEMETOLOGY METHOD 02/27/2025 12:42 PM [facility] RDW 13.6 11.0 - 15.0 % LAB HEMETOLOGY METHOD 02/27/2025 12:[facility] Platelets 219 130 - 400 K/mcL LAB HEMETOLOGY METHOD 02/27/2025 12:42 PM [facility] MPV 12.2(H) 7.0 - 11.0 FL LAB HEMETOLOGY METHOD 02/27/2025 12:[facility] NRBC 0.0 <1.0 % LAB HEMETOLOGY METHOD 02/27/2025 12:[facility] NRBC Absolute 0.00 <0.10 K/mcL LAB HEMETOLOGY METHOD 02/27/2025 12:[facility] Neutrophils Relative 51.6 % LAB HEMETOLOGY METHOD 02/27/2025 12:42 [facility] Lymphocytes Relative 34.6 % LAB HEMETOLOGY METHOD 02/27/2025 12:[facility] Monocytes Relative 10.2 % LAB HEMETOLOGY METHOD 02/27/2025 12:42 PM EDT [facility] Eosinophils Relative 2.0 % LAB HEMETOLOGY METHOD 02/27/2025 12:42 PM EDT [facility] Basophils Relative 1.4 % LAB HEMETOLOGY METHOD 02/27/2025 12:42 PM EDT [facility] Immature Granulocytes Relative 0.2 % LAB HEMETOLOGY METHOD 02/27/2025 12:42 PM EDT [facility] Neutrophils Absolute 2.53 1.50 - 7.00 K/mcL LAB HEMETOLOGY METHOD 02/27/2025 12:42 PM EDT [facility] Lymphocytes Absolute 1.70 1.00 - 5.00 K/mcL LAB HEMETOLOGY METHOD 02/27/2025 12:42 PM EDT [facility] Monocytes Absolute 0.50 0.20 - 1.00 K/mcL LAB HEMETOLOGY METHOD 02/27/2025 12:42 PM EDT [facility] Eosinophils Absolute 0.10 0.00 - 0.50 K/mcL LAB HEMETOLOGY METHOD 02/27/2025 12:42 PM EDT [facility] Basophils Absolute 0.07 0.00 - 0.20 K/mcL LAB HEMETOLOGY METHOD 02/27/2025 12:42 PM T [facility] Immature Granulocytes Absolute 0.01 0.00 - 0.03 K/mcL LAB HEMETOLOGY METHOD 02/27/2025 12:42 PM EDT [facility] Blood Venous blood specimen / Unknown Venipuncture / Unknown 02/27/2025 10:13 AM EDT 02/27/2025 12:17 PM EDT us Conner Teague NP LAB BLOOD ORDERABLES F inal Result [facility] [address] [place] [address], [place] [phone] * Phosphorus (02/27/2025 10:13 AM EDT) Phosphorus 2.8 2.5 - 4.5 mg/dL LAB CHEMISTRY METHOD 02/27/2025 2:01 PM EDT [facility] Blood Venous blood specimen / Unknown Venipuncture / Unknown 02/27/2025 10:13 AM EDT 02/27/2025 12:13 PM EDT Conner Teague AUTO MACHINIST LAB BLOOD ORDERABLES F inal Result Performing Organization Address City/[facility]/ZIP Co de Phone Number [facility] [address] [place] [address], [place] [phone] * Hemoglobin A1c (02/27/2025 10:13 AM EDT) [facility] Hemoglobin A1C 6.1 <6.5 % LAB CHEMISTRY METHOD 02/27/2025 2:27 PM EDT [facility] Mean Bld Glu Estim. 128 mg/dL LAB CHEMISTRY METHOD 02/27/2025 2:27 PM EDT [facility] Blood Venous blood specimen / Unknown Venipuncture / Unknown 02/27/2025 10:13 AM EDT 02/27/2025 12:17 PM EDT Conner Teague AUTO MACHINIST LAB BLOOD ORDERABLES F inal Result Performing Organization Address City/[facility]/ZIP Co de Phone Number [facility] [address] [place] [address], [place] [phone] * Comprehensive metabolic panel (02/27/2025 10:13 AM EDT) [facility] Sodium 141 133 - 145 mmol/L LAB CHEMISTRY METHOD 02/27/2025 2:05 PM EDT [facility] Potassium 3.9 3.5 - 5.5 mmol/L LAB CHEMISTRY METHOD 02/27/2025 2:05 PM [facility] Chloride 106 96 - 110 mmol/L LAB CHEMISTRY METHOD 02/27/2025 2:05 PM [facility] CO2 27 21 - 32 mmol/L LAB CHEMISTRY METHOD 02/27/2025 2:05 PM [facility] Anion Gap 8 3 - 11 LAB CHEMISTRY METHOD 02/27/2025 2:05 PM [facility] Glucose 90 70 - 100 mg/dL LAB CHEMISTRY METHOD 02/27/2025 2:05 PM [facility] BUN 12 5 - 25 mg/dL LAB CHEMISTRY METHOD 02/27/2025 2:05 PM [facility] Creatinine 1.01 0.70 - 1.30 mg/dL LAB CHEMISTRY METHOD 02/27/2025 2:05 PM [facility] eGFR 82 >=60 mL/min/1. 73m2 LAB CHEMISTRY METHOD 02/27/2025 2:05 PM [facility] Comment:Calculation based on the Chronic Kidney Disease Epidemiology Collaboration (CKD-EPI) equation refit without adjustment for race. BUN/Creatinine Ratio 11.9 LAB CHEMISTRY METHOD 02/27/2025 2:05 PM [facility] Calcium 9.3 8.5 - 10.5 mg/dL LAB CHEMISTRY METHOD 02/27/2025 2:05 PM [facility] AST (SGOT) 20 10 - 42 unit/L LAB CHEMISTRY METHOD 02/27/2025 2:05 PM [facility] ALT (SGPT) 30 10 - 60 unit/L LAB CHEMISTRY METHOD 02/27/2025 2:05 PM [facility] Alkaline Phosphatase 81 42 - 121 unit/L LAB CHEMISTRY METHOD 02/27/2025 2:05 PM [facility] Total Protein 7.3 6.0 - 8.0 g/dL LAB CHEMISTRY METHOD 02/27/2025 2:05 PM [facility] Albumin 3.9 3.2 - 5.0 g/dL LAB CHEMISTRY METHOD 02/27/2025 2:05 PM EDT [facility] Total Bilirubin 0.4 0.0 - 1.4 mg/dL LAB CHEMISTRY METHOD 02/27/2025 2:05 PM EDT [facility] Blood Venous blood specimen / Unknown Venipuncture / Unknown 02/27/2025 10:13 AM EDT 02/27/2025 12:13 PM EDT us Conner Teague AUTO MACHINIST LAB BLOOD ORDERABLES F inal Result [facility] [place] [address] [place] [address], [place] [phone] from Last 3 Months Insurance [facility] Member Subscriber Plan / Payer (Ef fective 2023-Present) Name:YUNIOR GLOVER Relation to Subscriber:Self Name:Yunior Glover Payer ID:[id number] Group ID:[id number] Type:Not on file Address: [place] [address] [address] [id number] Care Teams Retail Sales Vitamin Consultant Relationship Specialty Start Date End Date Gina Le MD [address] [facility] , [address] [facility] D/B/A: [facility] CHADD Guadarrama PCP - General 10/04/22
== END 2025-05-01 15:36 | disposition home or self-care (01) ==
LOC: HO.HCS 14:25
PROVIDERS: PCP Internal Medicine
DX: I42.8 Other cardiomyopathies (principal); I48.0 Paroxysmal atrial fibrillation; E78.5 Hyperlipidemia, unspecified; I10 Essential (primary) hypertension; Z95.810 Presence of automatic (implantable) cardiac defibrillator
CPT/HCPCS: 93010; 99214; G2211

== ENCOUNTER → 2025-05-01 14:24 | Outpatient (BNVA) | payer OTHER, SELFPAY | PROVIDERS: PCP Internal Medicine | DX: I42.8 Other cardiomyopathies (principal); I48.0 Paroxysmal atrial fibrillation; I10 Essential (primary) hypertension; E78.5 Hyperlipidemia, unspecified; Z98.61 Coronary angioplasty status; Z95.810 Presence of automatic (implantable) cardiac defibrillator | CPT/HCPCS: 93005; 99212 ==

== ENCOUNTER → 2025-05-03 23:59 | Outpatient (BNV) | payer OTHER, SELFPAY ==
--- NOTE | 2025-05-07 13:14 | MHC.OFFVIS ---
Intake Visit Reasons: Remote HF monitoring- Medtronic Allergies No Known Allergies (No Known Allergies*) Allergy (Verified 05/01/25 15:05) PFSH Medical History (Updated 05/01/25 @ 16:28 by Kris Miner NP) Acute pericardial effusion Rash and nonspecific skin eruption CHF exacerbation Acute on chronic systolic and diastolic heart failure, NYHA class 3 Persistent atrial fibrillation Congestive heart failure Atrial flutter Atrial fibrillation with rapid ventricular response Atrial fibrillation Alcohol use Hyperlipidemia LDL goal <70 Chronic sore throat Colon perforation Foreign body in sigmoid colon Onychomycosis 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 pylori) GERD (gastroesophageal reflux disease) Breast pain Dyslipidemia Essential hypertension Obese Abdominal mass Insomnia Surgical History H/O abdominal surgery History of colonoscopy Family History Father No problems noted. Mother Kidney failure Social History Household Members: None Housing: Apartment Do you presently have visiting nurse or other home services: No Alcohol intake: former Patient Tobacco Use Status: Former Tobacco user Tobacco use type: Cigarette e-Cigarette/Vaping Use: Never Used Second Hand Smoke Exposure: No service: No Current occupational status: retired Cognitive needs: No Hearing needs: No Vision needs: No Office Procedures Cardiac Device Check Cardiac Device Check Details: Remote heart failure report generated 05/03/2025. Heart failure parameters are within normal limits [id number] Cardiac Device Interrogation, cardio physiologic monitor Procedure code (CPT) selection complete Assessment & Plan Assessment & Plan (1) ICD (implantable cardioverter-defibrillator) in place: Code(s): Z95.810 - Presence of automatic (implantable) cardiac defibrillator Category: Medical Plan: See above Coding Level of Care Code Procedure Only Diagnoses ICD (implantable cardioverter-defibrillator) in place Z95.810 CPT Codes Cardiac Device Check - Cardiac Device 15: [id number] Cardiac Device Interrogation, cardio physiologic monitor ([id number])
== END ==
PROVIDERS: PCP Internal Medicine; Visit Provider Internal Medicine Cardiovascular Disease
DX: Z45.02 Encounter for adjustment and management of automatic implantable cardiac defibrillator (principal)
CPT/HCPCS: 93297

== ENCOUNTER → 2025-06-03 23:59 | Outpatient (BNV) | payer OTHER, SELFPAY ==
--- NOTE | 2025-06-04 16:09 | MHC.OFFVIS ---
Intake Visit Reasons: Remote HF monitoring- Medtronic Allergies No Known Allergies (No Known Allergies*) Allergy (Verified 05/01/25 15:05) PFSH Medical History (Updated 05/01/25 @ 16:28 by Kris Miner NP) Acute pericardial effusion Rash and nonspecific skin eruption CHF exacerbation Acute on chronic systolic and diastolic heart failure, NYHA class 3 Persistent atrial fibrillation Congestive heart failure Atrial flutter Atrial fibrillation with rapid ventricular response Atrial fibrillation Alcohol use Hyperlipidemia LDL goal <70 Chronic sore throat Colon perforation Foreign body in sigmoid colon Onychomycosis 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 pylori) GERD (gastroesophageal reflux disease) Breast pain Dyslipidemia Essential hypertension Obese Abdominal mass Insomnia Surgical History H/O abdominal surgery History of colonoscopy Family History Father No problems noted. Mother Kidney failure Social History Household Members: None Housing: Apartment Do you presently have visiting nurse or other home services: No Alcohol intake: former Patient Tobacco Use Status: Former Tobacco user Tobacco use type: Cigarette e-Cigarette/Vaping Use: Never Used Second Hand Smoke Exposure: No service: No Current occupational status: retired Cognitive needs: No Hearing needs: No Vision needs: No Office Procedures Cardiac Device Check Cardiac Device Check Details: Remote heart failure report generated 06/03/2025. Heart failure parameters are within normal limits [id number] Cardiac Device Interrogation, cardio physiologic monitor Procedure code (CPT) selection complete Assessment & Plan Assessment & Plan (1) ICD (implantable cardioverter-defibrillator) in place: Code(s): Z95.810 - Presence of automatic (implantable) cardiac defibrillator Category: Medical Plan: See above Coding Level of Care Code Procedure Only Diagnoses ICD (implantable cardioverter-defibrillator) in place Z95.810 CPT Codes Cardiac Device Check - Cardiac Device 15: [id number] Cardiac Device Interrogation, cardio physiologic monitor ([id number])
== END ==
PROVIDERS: PCP Internal Medicine; Visit Provider Internal Medicine Cardiovascular Disease
DX: Z45.02 Encounter for adjustment and management of automatic implantable cardiac defibrillator (principal)
CPT/HCPCS: 93297

== ENCOUNTER → 2025-07-30 14:49 | Outpatient (BNV) | payer OTHER, SELFPAY | PROVIDERS: PCP Internal Medicine; Visit Provider Internal Medicine Cardiovascular Disease | DX: Z45.018 Encounter for adjustment and management of other part of cardiac pacemaker (principal) | CPT/HCPCS: 93297 ==

== ENCOUNTER → 2025-08-12 13:55 | Outpatient (BNV) | payer OTHER, SELFPAY | PROVIDERS: PCP Internal Medicine; Visit Provider Internal Medicine Cardiovascular Disease | DX: Z45.018 Encounter for adjustment and management of other part of cardiac pacemaker (principal) | CPT/HCPCS: 93297 ==